=== PATIENT | male | born 1935 | race Caucasian/White ===

== ENCOUNTER 2017-04-24 11:15 | Emergency (ER) | payer MEDICARE ==
[~2017-04-24] VITALS: Ht 177.8 cm; Wt 84.4 kg
[~2017-04-24 11:15] MED LIST: ADVIL200 M1 PO; ARICEPT10 MG PO; CYMBALTA30 MG PO; LEVOTHYROXINE137 MCG PO; LEVOTHYROXINE150 MCG PO; LEVOTHYROXINE88 MCG PO; LOSARTAN-HCTZ1 EAC1 PO; PREDNISONE20 MG PO; PROAIR RESPICL90 MCG IH; SERTRALINE HCL50 MG PO; TOVIAZ8 MG PO; TRAZODONE HCL50 MG PO
[2017-04-24] MEDS ORDERED: GABAPENTIN800 MG PO (13:22)
[2017-04-24] MEDS ORDERED: FLOVENT HFA12 GM INH (13:22)
[2017-04-24] MEDS ORDERED: LEVOTHYROXINE175 MCG PO (13:23)
[2017-04-24] MEDS ORDERED: AMOX TR-K CLV1 EAC1 PO (13:23)
[2017-04-24] MEDS ORDERED: TAMSULOSIN HCL0.4 MG PO (13:23)
--- NOTE | 2017-04-25 11:56 | EKG ---
[facility] [address] [facility] [place] [address] Signed Normal sinus rhythm Right bundle branch block Abnormal ECG No previous ECGs available Confirmed by ELVIRA TUCKER MD ([id number]) on 04/25/2017 11:56:22 AM Electronically Signed By: ELVIRA TUCKER MD 04/25/17 1156 PATIENT NAME: JOSEPH CASTLE Electrocardiogram DATE OF : 31 PHYSICIAN: ELVIRA TUCKER MD REPORT #: [id number] REPORT IS CONFIDENTIAL AND NOT TO BE RELEASED WITHOUT AUTHORIZATION
== END 2017-04-24 14:53 | disposition home or self-care (01) ==
LOC: ED 11:15
DX: R20.2 Paresthesia of skin (principal); Z96.643 Presence of artificial hip joint, bilateral; Z96.652 Presence of left artificial knee joint; Z96.612 Presence of left artificial shoulder joint; Z96.611 Presence of right artificial shoulder joint; Z98.890 Other specified postprocedural states; Z88.5 Allergy status to narcotic agent; Z88.8 Allergy status to other drugs, medicaments and biological substances; Z79.899 Other long term (current) drug therapy
CPT/HCPCS: 70450; 80053; 84484; 85025; 93005; 93010; 99284

== ENCOUNTER → 2017-08-06 | Emergency (ER) | payer MEDICARE ==
[~2017-08-06] VITALS: Ht 177.8 cm; Wt 84.4 kg
[~2017-08-06] MED LIST changes: +ADULT ASPIRIN R81 MG PO; +AMOX TR-K CLV1 EAC1 PO; +COZAAR100 MG PO; +FLOVENT HFA12 GM INH; +GABAPENTIN800 MG PO; +KETOROLAC TROME10 MG PO; +LEVOTHYROXINE175 MCG PO; +TAMSULOSIN HCL0.4 MG PO; +TROSPIUM CHLORI60 MG PO
== END ==
LOC: ED 13:00
PROC: 0T9B70Z Drainage of Bladder with Drainage Device, Via Natural or Artificial Opening (ICD-10-PCS; principal; 2017-08-06)
DX: R10.32 Left lower quadrant pain (principal); Z88.8 Allergy status to other drugs, medicaments and biological substances; Z88.5 Allergy status to narcotic agent; Z79.899 Other long term (current) drug therapy; Z79.82 Long term (current) use of aspirin
CPT/HCPCS: 51701; 74176; 80053; 81001; 82150; 83690; 85025; 96374; 96376; 99283; J1885; J7030

== ENCOUNTER 2017-08-21 15:47 | Inpatient (IN) | payer MEDICARE ==
[~2017-08-21] VITALS: Ht 177.8 cm; Wt 78.8 kg
--- OUTSIDE RECORDS SUMMARY | ~2017-08-21 | XMS | Clinical Summary ---
Demographics + + + | Address | [address] | | | [place] [address] | + + + | Home Phone | | + + + | Preferred Language | Unknown | + + + | Marital Status | | + + + | Latter Day Affiliation | 1028 | + + + | Race | Unknown | + + + | Ethnic Group | Unknown | + + + Author + + + | Author | [facility] | + + + | Organization | [facility] | + + + | Address | Unknown | + + + | Phone | Unavailable | + + + Support + + + + + | Name | Relationship | Address | Phone | + + + + + | Joseph Castle | ECON | [address] | | | | | [place] | | | | | [phone] | | + + + + + Care Team Providers + +------+ + | Care Fast Food Worker Name | Role | Phone | + +------+ + | Josr Henriquez MD | PP | | + +------+ + Allergies + + + + + + | Active Allergy | Reactions | Severity | Noted | Comments | | | | | Date | | + + + + + + | Cyclobenzaprine | Hallucinations | Medium | 09/04/19 | | | | | | 12 | | + + + + + + | Morphine | Hallucinations | Medium | 09/04/19 | | | | | | 12 | | + + + + + + | Oxycodone-Acetaminop | Nausea and Vomiting | Low | 09/04/19 | | | hen | | | 12 | | + + + + + + Current Medications + + +-------+---------+------+------+-------+ | Prescription | Sig. | Disp. | Refills | Star | End | Statu | | | | | | t | Date | s | | | | | | Date | | | + + +-------+---------+------+------+-------+ | aspirin 81 MG | Take 81 mg by mouth | | | | | Activ | | tablet | daily. | | | | | e | + + +-------+---------+------+------+-------+ | omeprazole | Take 80 mg by mouth | | | | | Activ | | (PRILOSEC) 40 MG | 2 (two) times daily. | | | | | e | | capsule | | | | | | | + + +-------+---------+------+------+-------+ | | Take 1 tablet by | | | | | Activ | | UN-Grkbevvjzg-Pdched | mouth daily. | | | | | e | | obalamin (FOLBIC) | | | | | | | | 2.5-25-2 MG TABS | | | | | | | + + +-------+---------+------+------+-------+ | citalopram | Take 40 mg by mouth | | | | | Activ | | (CELEXA) 40 MG | daily. | | | | | e | | tablet | | | | | | | + + +-------+---------+------+------+-------+ | levothyroxine | Take 137 mcg by | | | | | Activ | | (SYNTHROID, | mouth daily. | | | | | e | | LEVOTHROID) 137 MCG | | | | | | | | tablet | | | | | | | + + +-------+---------+------+------+-------+ | | Take 1-2 tablets by | | | | | Activ | | hydrocodone-acetamin | mouth every 6 (six) | | | | | e | | ophen (NORCO) 10-325 | hours as needed. | | | | | | | MG per tablet | | | | | | | + + +-------+---------+------+------+-------+ | | Take 0.5 tablets by | | | | | Activ | | losartan-hydrochloro | mouth daily. | | | | | e | | thiazide (HYZAAR) | | | | | | | | 100-25 MG per tablet | | | | | | | + + +-------+---------+------+------+-------+ | cabergoline | Take 0.25 mg by | | | | | Activ | | (DOSTINEX) 0.5 MG | mouth twice a week. | | | | | e | | tablet | | | | | | | + + +-------+---------+------+------+-------+ | testosterone | Inject 200 mg into | | | | | Activ | | cypionate | the muscle every 14 | | | | | e | | (DEPO-TESTOSTERONE) | (fourteen) days. | | | | | | | 200 MG/ML injection | | | | | | | + + +-------+---------+------+------+-------+ | fish oil-omega-3 | Take 2 g by mouth | | | | | Activ | | fatty acids 1000 MG | daily. | | | | | e | | capsule | | | | | | | + + +-------+---------+------+------+-------+ Active Problems + + + | Problem | Noted Date | + + + | Anemia iron def | 09/06/2011 | + + + | Rhabdomyolysis | 09/04/2011 | + + + | ARF (acute renal failure) | 09/04/2011 | + + + | Male hypogonadism | 09/04/2011 | + + + | Unspecified hypothyroidism | 09/04/2011 | + + + | Adrenal adenoma | 09/04/2011 | + + + | HTN (hypertension) | 09/04/2011 | + + + | Orthostatic hypotension | 09/04/2011 | + + + | GERD (gastroesophageal reflux disease) | 09/04/2011 | + + + Resolved Problems + + + + | Problem | Noted | Resolved | | | Date | Date | + + + + | Syncope and collapse | 09/04/19 | | | | 12 | 2 | + + + + Social History + +-------+ +--------+------+ | Tobacco Use | Types | Packs/Day | Years | Date | | | | | Used | | + +-------+ +--------+------+ | Never Smoker | | | | | + +-------+ +--------+------+ + + +---------+ + | Alcohol Use | Drinks/We | oz/Week | Comments | | | ek | | | + + +---------+ + | No | | | rarely | + + +---------+ + + + + | Sex Assigned at | Date Recorded | | | | + + + | Not on file | | + + + Last Filed Vital Signs + + + + | Vital Sign | Reading | Time Taken | + + + + | Blood Pressure | 108/59 | 09/06/2011 7:38 AM PDT | + + + + | Pulse | 75 | 09/06/2011 7:38 AM PDT | + + + + | Temperature | 36.4 C (97.5 F) | 09/06/2011 7:38 AM PDT | + + + + | Respiratory Rate | 18 | 09/06/2011 7:38 AM PDT | + + + + | Oxygen Saturation | 94% | 09/06/2011 7:38 AM PDT | + + + + | Inhaled Oxygen | - | - | | Concentration | | | + + + + | Weight | 79.6 kg (175 lb 7.8 | 09/06/2011 4:13 AM PDT | | | oz) | | + + + + | Height | 180.3 cm (") | 09/05/2011 12:28 AM PDT | + + + + | Body Mass Index | 24.48 | 09/06/2011 4:13 AM PDT | + + + + Plan of Treatment Not on file Results Not on filefrom Last 3 Months Insurance + +--------+ +------+-------+ + | Payer | Benefi | Subscriber | Type | Phone | Address | | | t Plan | ID | | | | | | / | | | | | | | Group | | | | | + +--------+ +------+-------+ + | MEDICARE | MEDICA | xxxxxxxxxx | | | [address] | | | RE | | | | [place] [phone] | | | IP-OP | | | | | + +--------+ +------+-------+ + | [facility] | UNITED | xxxxxxxxx | | | | | | | | | | | | | HEALTH | | | | | | | CARE - | | | | | | | AARP | | | | | + +--------+ +------+-------+ + + +--------+ +--------+ + + | Guarantor Name | Accoun | Relation to | Date | Phone | Billing Address | | | t Type | Patient | of | | | | | | | | | | + +--------+ +--------+ + + | JOSEPH CASTLE | Person | Self [birth year] | Home: | [address] | | | al/Fam | | 1935 | [phone] | [place] | | | connie | | | [phone] | [phone] | + +--------+ +--------+ + +
--- OUTSIDE RECORDS SUMMARY | ~2017-08-21 | XMS | Clinical Summary ---
Demographics + + + | Address | [address] | | | [place] [address] | + + + | Home Phone | | + + + | Preferred Language | Unknown | + + + | Marital Status | | + + + | Quaker Affiliation | 1028 | + + + | Race | Unknown | + + + | Ethnic Group | Unknown | + + + Author + + + | Author | [facility] | + + + | Organization | [facility] | + + + | Address | Unknown | + + + | Phone | Unavailable | + + + Support + + + + + | Name | Relationship | Address | Phone | + + + + + | Joseph Castle | ECON | [address] | | | | | [place] | | | | | [phone] | | + + + + + Care Team Providers + +------+ + | Care Kindergarten Tutor Name | Role | Phone | + [...] | | | | Activ | | PU-Skmyyzlcjf-Mtewqd | mouth daily. | | | | [...] | xxxxxxxxxx | | | [address] | | | RE | | | | [place] [address] | | | IP-OP | | | | | + +--------+ +------+-------+ + | [facility] | UNITED | xxxxxxxxx | | | [...] Self | [birth year] | Home: | [address] | | | al/Fam | | 1935 | [phone] | [place] | | | connie | | | [phone] | [phone] | + +--------+ +--------+ + +
--- OUTSIDE RECORDS SUMMARY | ~2017-08-21 | XMS | Clinical Summary ---
Demographics + + + | Address | [address] | | | [place] [address] | + + + | Home Phone | | + + + | Preferred Language | Unknown | + + + | Marital Status | | + + + | Samaritan Affiliation | 1028 | + + + | Race | Unknown | + + + | Ethnic Group | Unknown | + + + Author + + + | Author | [facility] | + + + | Organization | [facility] | + + + | Address | Unknown | + + + | Phone | Unavailable | + + + Support + + + + + | Name | Relationship | Address | Phone | + + + + + | Joseph Castle | ECON | [address] | | | | | [place] | | | | | [phone] | | + + + + + Care Team Providers + +------+ + | Care Road Service Locksmith Name | Role | Phone | + [...] | | | | Activ | | QW-Spcrwmovvk-Opabet | mouth daily. | | | | [...] | xxxxxxxxxx | | | [address] | | | RE | | | | [place] [address] | | | IP-OP | | | | | + +--------+ +------+-------+ + | [facility] | [place] | xxxxxxxxx | | [...] Self | [birth year] | Home: | [address] | | | al/Fam | | 1935 | [phone] | [place] | | | connie | | | [phone] | [phone] | + +--------+ +--------+ + +
--- OUTSIDE RECORDS SUMMARY | ~2017-08-21 | XMS | Clinical Summary ---
Demographics + + + | Address | [address] | | | [place] [address] | + + + | Home Phone | | + + + | Preferred Language | Unknown | + + + | Marital Status | | + + + | Orthodoxy Affiliation | Unknown | + + + | Race | Unknown | + + + | Ethnic Group | Unknown | + + + Author + + + | Author | [facility] | | | and Marcelana | + + + | Organization | [facility] | | | and [place] | + + + | Address | Unknown | + + + | Phone | Unavailable | + + + Support + + + + + | Name | Relationship | Address | Phone | + + + + + | Brie Castle | ECON | [address] | | | | | [place] | | | | | [address] | | + + + + + | Chloe Malik | ECON | [place] | | | | | [address] | | + + + + + | Ivett Ingram | ARIEL | Unknown | | + + + + + | Mj Castle | ARIEL | Unknown | | + + + + + Care Team Providers + +------+ + | Care Aviation Consultant Name | Role | Phone | + [...] + + | Fluoxetine | | | 07/27/20 | | | | | | 15 [...] | + + +-------+---------+------+------+-------+ | | Take 100-25 mg by | | | 01/09 | | Activ | | losartan-hydrochloro | mouth Daily. | | | 07/28 | | e | | thiazide (HYZAAR) | | | | 12 | | | | 100-25 MG per tablet | | | | | | | + + +-------+---------+------+------+-------+ | aspirin (ASPIRIN | Take 81 mg by mouth | | | 01/09 | | Activ | | LOW DOSE) 81 MG EC | Daily. | | | 07/28 | | e | | tablet | | | | 12 | | | + + +-------+---------+------+------+-------+ | levothyroxine | Take 137 mcg by | | | 01/09 | | Activ | | (LEVOTHROID) 137 MCG | mouth Daily. | | | 07/28 | | e | | tablet | | | | 12 | | | + + +-------+---------+------+------+-------+ | cabergoline | | | | 03/0 | | Activ | | (DOSTINEX) 0.5 mg | | | | 05/30 | | e | | tablet | | | | 12 | | | + + +-------+---------+------+------+-------+ | testosterone | 200mg IM every 2 | | | 03/0 | | Activ | | cypionate | weeks | | | 05/30 | | e | | (DEPO-TESTOSTERONE) | | | | 12 | | | | 200 mg/mL injection | | | | | | | + + +-------+---------+------+------+-------+ | fesoterodine | Take 8 mg by mouth | | | | | Activ | | fumarate (TOVIAZ) 8 | Daily. | | | | | e | | MG TB24 ER tablet | | | | | | | + + +-------+---------+------+------+-------+ | donepezil | Take 5 mg by mouth | | | | | Activ | | (ARICEPT) 5 mg | nightly. | | | | | e | | tablet | | | | | | | + + +-------+---------+------+------+-------+ | Naproxen Sodium | Take 220 mg by mouth | | | | | Activ | | (ALEVE) 220 MG CAPS | 2 times daily. | | | | | e | + + +-------+---------+------+------+-------+ | traZODone | Take 50 mg by mouth | | | | | Activ | | (DESYREL) 50 mg | nightly. | | | | | e | | tablet | | | | | | | + + +-------+---------+------+------+-------+ | Multiple | Take by mouth. | | | | | Activ | | Vitamins-Minerals | | | | | | e | | (OCUVITE ADULT 50+ | | | | | | | | PO) | | | | | | | + + +-------+---------+------+------+-------+ | Multiple | Take by mouth. | | | | | Activ | | Vitamins-Minerals | | | | | | e | | ([facility] | | | | | | | | PO) | | | | | | | + + +-------+---------+------+------+-------+ | Multiple | Take by mouth. | | | | | Activ | | Vitamins-Minerals | | | | | | e | | (CENTRUM SILVER | | | | | | | | ADULT 50+ PO) | | | | | | | + + +-------+---------+------+------+-------+ | Multiple | Take by mouth. | | | | | Activ | | Vitamins-Minerals | | | | | | e | | (CENTRAL-SHAUN PO) | | | | | | | + + +-------+---------+------+------+-------+ Active Problems + + + | Problem | Noted Date | + + + | Bilateral sacroiliitis (HCC) | 09/18/2014 | + + + | [...] | SLEEP APNEA | | + +---+ Family History + + +------+ + | [...] + + + | Blood Pressure | 207/118 | 03/13/2015 1419 PST | + + + + | Pulse | 82 | 03/13/20159 PST | + + + + | Temperature | - | - | + + + + | Respiratory Rate | - | - | + + + + | Oxygen Saturation | - | - | + + + + | Inhaled Oxygen | - | - | | Concentration | | | + + + + | Weight | 81.6 kg (180 lb) | 02/28/2015 1201 PDT | + + + + | Height | 177.8 cm (5' 10") | 02/28/20151200 PDT | + + + + | Body Mass Index | 25.83 | 02/28/20151200 PDT | + + + + Plan of Treatment + + + + + | Health Maintenance | Due Date | Last Done | Comments | + + + + + | Vaccine: | | | | | Dtap/Tdap/Td (1 - | 2 | | | | Tdap) | | | | + + + + + | Vaccine: Zoster (#1) | | | | | | 3 | | | + + + + + | Vaccine: | | | | | Pneumococcal 65+ | 8 | | | | Low/Medium Risk (1 | | | | | of 2 - PCV13) | | | | + + + + + | Vaccine: Influenza | | | | | (Season Ended) | 8 | | | + + + + + Results Not on filefrom Last 3 Months Insurance + +--------+ +--------+ +---------+ | Payer | Benefi | Subscriber | Type | Phone | Address | | | t Plan | ID | | | | | | / | | | | | | | Group | | | | | + +--------+ +--------+ +---------+ | MEDICARE | MEDICA | xxxxxxxxxx | Medica | [phone] | | | RE | | re | [phone] | | | | PART A | | | | | | | AND B | | | | | + +--------+ +--------+ +---------+ | AARP | AARP | xxxxxxxxxxx | Indemn | [phone] | | | MDCR | | [phone] | [phone] | | | | SUPPL | | | | | + +--------+ +--------+ +---------+ + +--------+ +--------+ + + | Guarantor Name | Accoun | Relation to | Date | Phone | Billing Address | | | t Type | Patient | of | | | | | | | | | | + +--------+ +--------+ + + | JOSEPH CASTLE | Person | Self | [birth year] | Home: | [address] | | | al/Fam | | 1935 | [phone] | [place] [address] | | | connie | | | [phone] | | + +--------+ +--------+ + +
--- OUTSIDE RECORDS SUMMARY | ~2017-08-21 | XMS | Clinical Summary ---
Demographics + + + | Address | [address] | | | [place] [address] | + + + | Home Phone | | + + + | Preferred Language | Unknown | + + + | Marital Status | | + + + | Sikhism Affiliation | Unknown | + + + | Race | Unknown | + + + | Ethnic Group | Unknown | + + + Author + + + | Author | [facility] | | | and Marcelana | + + + | Organization | [facility] | | | and Marcelana [...] [place] | | | | | [address] | | + + + + + | Chloe Malik | ECON | [place] | | | | | [address] | | + + + + + | Ivett Ingram | ARIEL | Unknown | | + + + + + | Mj Castle | ARIEL | Unknown | | + + + + + Care Team Providers + +------+ + | Care Activities Attendant Name | Role | Phone | + [...] | | | | e | | ([facility] | | | | [...] | 1935 | [phone] | [place] [address] | | | connie | | | [phone] | | + +--------+ +--------+ + +
--- OUTSIDE RECORDS SUMMARY | ~2017-08-21 | XMS | Clinical Summary ---
Demographics + + + | Address | [address] | | | [place] [address] | + + + | Home Phone | | + + + | Preferred Language | Unknown | + + + | Marital Status | | + + + | Sabianist Affiliation | Unknown | + + + | Race | Unknown | + + + | Ethnic Group | Unknown | + + + Author + + + | Author | [facility] | | | and Marcelana | + + + | Organization | [facility] | | | and [...] [place] | | | | | [address] | | + + + + + | Chloe Malik | ECON | [place] | | | | | [address] | | + + + + + | Ivett Ingram | ARIEL | Unknown | | + + + + + | Mj Castle | ARIEL | Unknown | | + + + + + Care Team Providers + +------+ + | Care Upholstery Covers Inspector Name | Role | Phone | + [...] | | | | e | | ([facility] | | | | | | [...] | 1935 | [phone] | [place] [address] | | | connie | | | [phone] | | + +--------+ +--------+ + +
--- OUTSIDE RECORDS SUMMARY | ~2017-08-21 | XMS | Clinical Summary ---
Demographics + + + | Address | [address] | | | [place] [address] | + + + | Home Phone | | + + + | Preferred Language | Unknown | + + + | Marital Status | | + + + | Pentecostalism Affiliation | Unknown | + + + | Race | Unknown | + + + | Ethnic Group | Unknown | + + + Author + + + | Author | [facility] | | | and Marcelana | + + + | Organization | [facility] | | | and Marcelana [...] [place] | | | | | [address] | | + + + + + | Chloe Malik | ECON | [place] | | | | | [address] | | + + + + + | Ivett Ingram | ARIEL | Unknown | | + + + + + | Mj Castle | ARIEL | Unknown | | + + + + + Care Team Providers + +------+ + | Care Citrix Architect Name | Role | Phone | [...] | | | | e | | ([facility] | | | | | | [...] | 1935 | [phone] | [place] [address] | | | connie | | | [phone] | | + +--------+ +--------+ + +
--- OUTSIDE RECORDS SUMMARY | ~2017-08-21 | XMS | Clinical Summary ---
Demographics + + + | Address | [address] | | | [place] [address] | + + + | Home Phone | | + + + | Preferred Language | Unknown | + + + | Marital Status | | + + + | Anabaptist Affiliation | 1028 | + + + | Race | Unknown | + + + | Ethnic Group | Unknown | + + + Author + + + | Author | [facility] | + + + | Organization | [facility] | + + + | Address | Unknown | + + + | Phone | Unavailable | + + + Support + + + + + | Name | Relationship | Address | Phone | + + + + + | Joseph Castle | ECON | [address] | | | | | [place] | | | | | [phone] | | + + + + + Care Team Providers + +------+ + | Care Oracle Fusion Developer Name | Role | Phone | + [...] | | | | Activ | | MV-Aggermmyyt-Exqifu | mouth daily. | | | | [...] | xxxxxxxxxx | | | [address] | | | RE | | | | [place] [address] | | | IP-OP | | | | | + +--------+ +------+-------+ + | [facility] | UNITED | xxxxxxxxx | | [...] Self | [birth year] | Home: | [address] | | | al/Fam | | 1935 | [phone] | [place] | | | [place]nie | | | [phone] | [phone] | + +--------+ +--------+ + +
--- NOTE | 2017-08-21 20:21 | NUR ---
PATIENT ARRIVED TO THE FLOOR VIA STRETCHER. PATIENT TRANSFFERED FROM STRETCHER TO THE HOSPITAL BED VIA STAFF. PATIENT TOLERATED ACTIVITY WELL. PATIENT IS DISORINETED TO ALL. PATIENTS INTAKE COMPLETED. PATIENTS FAMILY HAS LEFT FOR THE EVENING. PATIENT DENIES ANY NEEDS AT THIS TIME. PATIENT DENIES ANY PAIN. ASSESMENT COMPLETED AND RECORDED. PATIENTS BED ALARM IS ON FOR SAFETY. PATIENT EDUCATED ON THE USE OF THE CALL LIGHT. PATIENT DOES NOT UNDERSTAND DIRECTIONS AT THIS TIME. PATIENT CLOSE TO THE NURSES STATION FOR OBSERVATION.
--- NOTE | 2017-08-21 21:08 | NUR ---
PATIENT WAS OUT OF BED WITHOUT THE ALARM ALERTING STAFF. BED ALRM ON THE BED STATES THAT IT IS ON. PATIENT NOW HAS A NEW BED AND THE BED ALARM IS OPERABLE. PATIENT WAS ABLE TO VOID A SMALL AMOUNT. PATIENT IS NOT STEADY ON HIS FEET AND DOES NOT FOLLOW DIRECTIONS. PATIENT IS NOW BACK IN BED. CALL LIGHT IN REACH. AND BED ALARM ON. NO NEEDS NOTED.
--- NOTE | 2017-08-21 22:08 | NUR ---
bed alarm on, trying to get out of bed, stood at edge of bed with 2 person assist, voided, clear yellow urine in urineal. Required several cues tog et back onto bed, unsteady gait. back to bed. sob with exertion noted.
--- NOTE | 2017-08-21 22:32 | NUR ---
PATIENT IS RESTING IN BED WITH EYES CLOSED. BREATHING IS EVEN AND UNLABORED, RR 16. SE LLIGHT IN REACH. AND BED ALARM IS ACTIVE.
--- NOTE | 2017-08-21 22:50 | EKG ---
[facility] [address] [place] [address] Signed Normal sinus rhythm Right bundle branch block Possible Inferior infarct , age undetermined Abnormal ECG When compared with ECG of 24-APR-2017 12:30, No significant change was found Confirmed by ELVIRA TUCKER MD ([id number]) on 08/21/2017 10:50:45 PM Electronically Signed By: ELVIRA TUCKER MD 08/21/17 2250 PATIENT NAME: CORRINEJOSEPH EMELY Electrocardiogram DATE OF : 31 PHYSICIAN: ELVIRA TUCKER MD REPORT #: [id number] REPORT IS CONFIDENTIAL AND NOT TO BE RELEASED WITHOUT AUTHORIZATION
--- NOTE | 2017-08-21 23:33 | NUR ---
PATIENT IS RESTING IN BED ON HIS LEFT SIDE. RR 17. CALL LIGHT IN REACH. BED ALARM ON FOR SAFETY.
--- NOTE | 2017-08-21 23:39 | NUR ---
PATIENT CLIMBING OUT OF BED. STAFF ENTERED ROOM. PATIENT ASSISTED TO STAND AT THE BEDISDE. PATIENT WAS ABLE TO VOID. PATIENT IS BACK IN BED RESTING. CALL LIGHT IN REACH. BED ALARM ON FOR SAFETY AND IV INFUSING.
--- NOTE | 2017-08-22 00:22 | NUR ---
PATIENTS BED ALARM ALERTED STAFF THAT HE WAS GETTING OUTOF BED. PATIENT ASSISTED TO STAND AT THE BEDSIDE. PATIENT WAS ABLE TO VOID. PATIENT ALSO HAD A SMALL AMOUNT OF INCONTINENCE. PATIENT IS NOW BACK IN BED RESTING. PATIENTS CALL LIGHT IN REACH. AND BED ALARM ON FOR SAFETY. NO FURTHER NEEDS NOTED. PATIENT REMAINS DISORIENTED TO ALL.
--- NOTE | 2017-08-22 01:21 | NUR ---
PATIENT OBSERVED TRYING TO GET OUT OF BED. PATIENT ASSISTED TO STAND AT THE BEDISDE TO USE URINAL. PATIENT WAS ABLE TO VOID. PATIENT IS NOW BACK IN BED RESTING. BED ALARM ON FOR SAFETY. VITALS TAKEN AND RECORDED. INTAKE AND OUTPUT RECORDED. PATIENT OFFERED A DRINK AND HAD NO ISSUES SWALLOWING. PATIENT EDUCATED ON USE OF CALL LIGHT, PATIENT SMILED. PATIENT REMAINS DISORIENTED. PATIENT AT TIMES STRUGGLES TO FIND HIS WORDS. PATIENTS CALL LIGHT IN REACH.
--- NOTE | 2017-08-22 01:59 | NUR ---
PATIENT WAS ROLLING AROUND IN BED. WHEN THE ROOM WAS ENTERED PATIENT ASKED TO USE THE RESTROOM. PATIENT STOOD AT THE BEDSIDE AND USED URINAL. PATIENT WAS ABLE TO VOID. PATIENT IS BACK IN BED RESTING. PATIENTS BED ALARM ON. CALL LIGHT IN REACH. NO NEEDS NOTED.
--- NOTE | 2017-08-22 02:48 | NUR ---
PATIENT BEGAN TO MOVE AROUND IN BED. WHEN ASKED IF HE WAS OKAY. PATIENT STATED "I HAVE TO PEE". PATIENT ASSISTED TO STAND AT THE BEDSIDE A 2PA. PATIENT IS NOW BACK IN BED RESTING. PATIENT REMAINS CONFUSED. ATTEMPTED TO REORIENT PATIENT, PATIENT JUST SMILES. PATIENT CONTINUES TO BE UNABLE TO FIND CORRECT WORDS, AND JUST SAYS "OH SHOOT" WHEN HE CANT FIND THE WORD. REEDUCATED INSPECTOR MACHINE CUT GLASS LIGHT. BED ALARM ON FOR SAFETY.
--- NOTE | 2017-08-22 05:19 | NUR ---
PATIENT UP TO THE RESTROOM AFTER IT WAS NOTICED PATIENT WAS TRYING TO CLIMB OUT OF BED. PATIENT ASSITED A 2PA TO STAND AT THE BEDISDE TO USE THE URINAL PATIENT ABLE TO VOID A SMALL AMOUNT. PATIENT ASSISTED BACK INTO BED. PATIENT TRYING TO GET OUT OF BED AGAIN BEFORE STAFF LEFT THE ROOM. PATIENT ASSISTED AGAIN TO STAND AT THE BED SIDE. PATIENT ABLE TO VOID. PATIENT IS BACK IN BED RESTING. PATIENTS ATTEND CHANGED AND ORLIN CARE COMPLETED. PATIENTS BED ALARM IS ON FOR SAFETY. PATIENTS VITALS TAKEN AND BP WAS HIGHER. WAITED 15 MINUTES AND RETOOK BP AND RECORDED. BP WNL. PATIENT REMAINS CONFUSED. REORIENTED PATIENT. PATIENT EDUCATED ON THE USE OF THE CALL LIGHT. NO FURTHER NEEDS NOTED.
--- NOTE | 2017-08-22 05:22 | NUR ---
PATIENT RESTED ON AND OFF DURING THE NIGHT. PATIENT IS ON A CRADIAC DIET. PAITNET IS A 2PA. PATIENT IS CONFUSED AND FORGETFUL. PATIENT DISORIENTED TO SURROUNDINGS, EVENT, TIME, AND DATE. PATIENT IS UNABLE TO FOLLOW DIRECTIONS. PATIENT AT TIMES IS UNABLE TO FIND HIS WORDS. PATIENT STANDS AT THE BEDISDE AND USES URINAL. PATIENT IS UNSTEADY ON HIS FEET. BED ALARM ON FOR SAFETY. PATIENT DOES NOT USE CALL LIGHT.
--- NOTE | 2017-08-22 06:35 | NUR ---
PATIENT WAS OBSERVED CLIMBING OUT OF BED. PATIENTASSISTED A 2PA TO STAND AT THE BEDSIDE TO USE URINAL. PATIENT WAS ABLE TO VOID. PATIENT IS NOW BACK IN BED RESTING. PATIENTS BED ALARM IS ON FOR SAFETY. PATIENT REMAINS DISORIENTED. PATIENT REORINETED. PATIENTS CALL LIGHT IN REACH
--- NOTE | 2017-08-22 07:45 | NUR ---
REPORT RECIEVED FROM JENNIFER TROTTER. PT AWAKE AND DISORIENTED. PLEASANT BUT DID NOT KNOW YEAR OR LOCATION.
--- NOTE | 2017-08-22 07:50 | NUR ---
ADMINISTERED THYROID MEDICATION. PT DOES NOT REMEMBER BIRTHDAY. ORDERED BREAKFAST.
--- NOTE | 2017-08-22 08:35 | NUR ---
2 PERSON ASSIST WITH KEITH SIMPSON TO TOILET. DAUGHTER IN ROOM AND ASSISTED WELL. PATIENT A LITTLE DIFFICULT TO DIRECT. PATIENT IN CHAIR, BREAKFAST IN FRONT AND CHAIR ALARN ON.
--- NOTE | 2017-08-22 08:54 | NUR ---
TALKED TO DAUGHTER ELISEO FROM OCCUPATIONAL THERAPY. SHE CALLED THE REP AND HE INSTRUCTED HER TO SCAN HIS TENS UNIT WITH A SPECIAL WAND THE DEVICE TOLD HER NO TO AN MRI. VERIFIED WITH UNIT REP AND HIS DEVICE IS NOT COMPATIBLE WITH AN MRI.
--- NOTE | 2017-08-22 08:55 | NUR ---
PATIENT IS UP IN HIS CHAIR EATING HIS BREAKFAST CHAIR ALARM ON. DAUGHTER IN ROOM. OTHER EXTENSION SERVICE ADVISOR AND I ALSO DAUGHTER HELPED HIM INTO THE BATHROOM I STAYED IN THE BATHROOM WHILE OTHER EXTENSION SERVICE ADVISOR MADE HIS BED.
--- NOTE | 2017-08-22 11:26 | NUR ---
TOOK PATIENTS VITALS PER JENNIFER WILD. TORRI, , DAUGHTER, JENNIFER THOMAS, PT, AND DR TUCKER IN ROOM. DR TUCKER DOING ASSESMENT AND CHECKING REFLEXES.
--- NOTE | 2017-08-22 11:43 | NUR ---
PT RESTLESS. TRIED TO STAND PT TO WALK IN TO RESTROOM BEFORE. PT COULD NOT FOLLOW DIRECTIONS OR CLOSE HAND. WAS NOTED TO BE DROOLING. AND DAUGHTER IN ROOM. DR TUCKER IN TO ASSESS PT. VS ASSESSED. BP HIGH AT 181\95. STARTED NEW IV IN LEFT ARM AND SENT LABS. PT APPEAR TO CLEAR ENOUGH TO STAND SOME TIME LATER AND ASSISTED INTO BEDSIDE CHAIR. CHAIR ALARM IN PLACE AND IN ROOM. CURTAIN OPEN.
--- NOTE | 2017-08-22 12:09 | NUR ---
PT CONTINUES TO BE RESTLESS IN CHAIR. CONCERNED. ASSISTED BACK TO BED. BED ALARM ON. STATES HE TAKES A "LEG CRAMP" PILL AND TONIC WATER FOR HIS LEG CRAMPS HE HAS HAD TWO IN THE LAST 1\\2 [address] TUCKER AND HE AUTHORIZED IF SHE BRINGS THE TONIC WATER FROM HOME. TOLD HER NOT TO GIVE HIM THE PILLS BUT WE WOULD LOOK AT THEM. DAUGHTER IN ROOM.
--- NOTE | 2017-08-22 13:20 | NUR ---
2 person assist with sharon Mccartney- patient needed to use urinal. Was unable to go. in room. Fresh ice and tonic water given, patient became visably upset and cursed at when she tried to get him to take a drink bed alarm is on
--- NOTE | 2017-08-22 13:47 | NUR ---
THIS RN RECEIVED HAND OFF REPORT FROM JENNIFER WILD. ASSESSEMENT DONE. PT TALKING AND USING PROFANITY. PT APPEARS RESTLESS, ANXIOUS AND AGGITATED. PT USING WORDS (PRIMARILY PROFANITY). PT FOLLOWING DIRECTIONS WITH SOME DIFFICULTY. LEFT SIDED WEAKNESS NOTED. PT ASSESTED UP TO RESTROOM, 2 PERSON STANDY BY, FWW ASSIST. PT UNSTEADY ON FEET. AT BEDSIDE. BED RAILS UP. CALL LIGHT WITHIN REACH. BED ALARM ON.
--- NOTE | 2017-08-22 15:19 | NUR ---
PT CONTINUES TO BE RESTLESS. PTS DAUGHTER WOULD LIKE TO WHEEL PT AROUND UNIT TO ORIENT HIM TO SURROUNDINGS AND HELP WITH RESTLESS BEHAVIOR. PT TRANSFERED TO WHEEL CHAIR WITH 2 PERSON STAND BY ASSIST. PT NOTED TO BE SMILING WHILE RINDING AROUND UNIT.
--- NOTE | 2017-08-22 16:36 | NUR ---
2 PERSON ASSIST PATIENT TO BR, WITH DAUGHTER AND WIFES HELP. PATIENT SAT ON TOILET. ATTENDS AND GOWN WERE CHANGED THEY BECAME WET WITH URINE. BACK TO BED, BED ALARM ON.
--- NOTE | 2017-08-22 16:52 | NUR ---
PTS FAMILY TO NURSES STATION STATING THEY ARE LEAVING FOR DINNER AND A BREAK. PT IS RESTING WITH EYES CLOSED, RR = 20. IV FLUIDS ARE NOT CONNECTED TO PT. PIV ASSESSED, WNL. RECONNECTED AT THIS TIME BY THIS RN. BED ALARM ON. CALL LIGHT PINKYIN ANA.
--- NOTE | 2017-08-22 17:57 | NUR ---
PATIENT IS LAYING IN BED TRYING TO GO TO SLEEP.
--- NOTE | 2017-08-22 18:18 | NUR ---
PT HAD NEW STROKE THIS AM AROUND 1030. CT PERFOMRED. PT NOW APHASIC WITH LEFT SIDED WEAKNESS. TELE #2. URINARY FREQUENCY. BED/CHAIR ALARM. PT NOT USING CALL LIGHT. STAND BY ASSIST WITH AMBULATION AND ALL TOILETING/ADLS. PIV X2 (LFA, RAC), LR AT 125. PT ABLE TO VERBLIZE NAME BUT OTHERWISE DISORINTED SINCE STROKE THIS AM.
--- NOTE | 2017-08-22 19:05 | NUR ---
RECEIVED REPORT FROM RN. PATIENT RESTING IN BED, BREATHING IS EVEN AND UNLABORED, APPEARS TO BE ASLEEP. FLACC SCORE OF 0. AT BEDSIDE, DENIES NEEDS AT THIS TIME. CALL LIGHT WITHIN REACH, BED ALARM ON.
--- NOTE | 2017-08-22 20:11 | NUR ---
ROUNDED CHARGE. PATIENT IS RESTING IN BED SLEEPING RR 17. PATIENTS IS IN THE RECLINER AT THE BEDSIDE. CALL LIGHT IN REACH. BED ALARM IS ON. NO NEEDS NOTED
--- NOTE | 2017-08-22 21:38 | NUR ---
SEEN PATIENT TRYING TO GET UP OUT FROM BED. CALLED TARIQ MARTÍNEZ RN TO HELP ME REPOSITION THE PATIENT. BED ALARM ON.
--- NOTE | 2017-08-22 22:03 | NUR ---
JENNIFER POTTER AND I HELPED PATIENT USE THE URINAL, UN ABLE TO USE IT BUT VOIDED EVERYWHERE.BED AND PULL UPS ARE SOAKED. BED LINEN AND GOWN CHANGED. PATIENT IS BACK IN BED. BED ALARM ON.
--- NOTE | 2017-08-22 23:40 | NUR ---
PATIENT RESTING COMFORTABLY IN BED, BREATHING IS EVEN AND UNLABORED. FLACC SCORE OF 0. CALL LIGHT WITHIN REACH.
--- NOTE | 2017-08-23 00:30 | NUR ---
ASSISTED PATIENT TO BATHROOM WITH 2PA. GAIT IS UNSTEADY, PATIENT DOES NOT FOLLOW COMMANDS. NOW RESTING COMFORTABLY IN BED, BREATHING IS EVEN AND UNLABORED. BED ALARM ON, CALL LIGHT WITHIN REACH.
--- NOTE | 2017-08-23 02:28 | NUR ---
PATIENT ASSISTED TO STAND AT THE BEDSIDE. PATIENT WAS ABLE TO USE URINAL. PATIENT WAS ALSO INCONTINENT. PATIENT IS BACK IN BED RESTING. NEURO CHECK ATTEMPTED. PATIENT UNABLE TO FOLLOW COMMANDS. PATIENTS BED ALARM IS ON FOR SAFETY.
--- NOTE | 2017-08-23 04:16 | NUR ---
PATIENT OBSERVED TRYING TO GET OUT OF BED. PATIENT ASSISTED TO STAND AT THE BEDSIDE. PATIENT WAS ABLE TO VOID. PATIENT CONTINUES TO STRUGGLE TO FOLLOW DIRECTIONS. PATIENT IS NOW BACK IN BED RESTING. PATIENTS BED ALARM IS ON FOR SAFETY.
--- NOTE | 2017-08-23 05:08 | NUR ---
PATIENT ASSISTED TO BEDSIDE TO USE URINAL. NOW RESTING IN BED, BREATHING IS EVEN AND UNLABORED. PATIENT DENIES NEEDS, UNABLE TO ASSESS AT THIS TIME DUE TO PATIENT NOT FOLLOWING COMMANDS. CALL LIGHT WITHIN REACH, BED ALARM ON.
--- NOTE | 2017-08-23 05:35 | NUR ---
PATIENT'S NIGHT WAS UNEVENTFUL. HE HAS BEEN RESTING THROUGHOUT SHIFT. VSS, URINE OUTPUT QS, NO COMPLAINTS OR SIGNS OF PAIN. DUE TO PATIENT'S COGNITIVE STATUS, ASSESSMENTS ARE DIFFICULT; PATIENT DOES NOT FOLLOW COMMANDS, DOES NOT ANSWER QUESTIONS. DIFFICULT TO ASSESS MOTOR STRENGTH DUE TO PATIENT'S COGNITIVE STATUS, AGAIN DOES NOT FOLLOW COMMANDS, CONTINUES TO FIDGET WHILE ASSESSING. REQUIERES BED ALARM DUE TO IMPULSIVITY. REMAINS ON TELE, UNREMARKABLE WITH NORMAL SINUS THROUGHOUT SHIFT. INCONTINENT OF URINE, REQUIRES FREQUENT ATTENDS CHANGES. AMBULATES TO BATHROOM, GAIT IS UNSTEADY, REQUIRES 2PA. IV FLUIDS INFUSING. NO ACUTE CHANGES FROM BEGINNING OF SHIFT.
--- NOTE | 2017-08-23 08:40 | NUR ---
DAUGHTER HELPED ME GET HIM INTO THE SHOWER. WHILE GIVING HIM A SHOWER DAUGHTER MADE HIS BED FOR ME. SHAMPOODED HIS HAIR. NOW HE IS SITTING UP IN HIS CHAIR EATING HIS BREAKFAST.
--- NOTE | 2017-08-23 08:50 | NUR ---
PT SITTING UP IN CHAIR, EATING BREAKFAST WITH 'S ASSISTANCE. PT ABLE TO FOLLOW SIMPLE COMMANDS THIS AM. COMPRESS ENGINEER EVEN AND STRONG, NO UNILATERAL WEAKNESS NOTED AT THIS TIME. PT SPEECH IS CLEAR, CAN MAKE NEEDS KNOWN. ANSWERS "I DON'T KNOW" OR "I CAN'T REMEMBER" TO ALL ORIENTATION QUESTIONS. CHAIR ALARM IN PLACE. PT DENIES PAIN OR NAUSEA. IV IN LEFT AC INFUSING WNL, DRESSING CDI. AND DAUGHTER AT BEDSIDE.
--- NOTE | 2017-08-23 10:42 | NUR ---
PT WORKING WITH PEric, ANA WELL. AMB WITH SBA. FOLLOWING COMMANDS WELL. BACK TO ROOM AT THIS TIME, SITTING UP IN RECLINER, CHAIR ALARM ON.
--- NOTE | 2017-08-23 11:09 | NUR ---
I HELPED PHYSICAL THERAPIST WALK PATIENT BACK TO HIS ROOM AFTER PHYSICAL THERAPY.
--- NOTE | 2017-08-23 11:52 | NUR ---
PT ONE PERSON ASSIST TO BED FOR CAROTID ULTRASOUND. BED ALARM ON. AT BEDSIDE.
--- NOTE | 2017-08-23 13:00 | NUR ---
PT ATE APPROX 30% OF LUNCH, HAD WHOLE ENSURE. PT DENIES PAIN OR NAUSEA. STATES HE IS COLD AND TIRED. 1PA TO BED AND GIVEN WARM BLANKET. BED ALARM ON. CALL LIGHT WITHIN REACH. AT BEDSIDE. PT SL PER DR. TUCKER'S ORDER.
--- NOTE | 2017-08-23 14:10 | NUR ---
PT SBA TO RESTROOM TO VOID, AMB BACK TO BED. BED ALARM ON. AT BEDSIDE.
--- NOTE | 2017-08-23 15:16 | NUR ---
PT RESTING IN BED, EYES CLOSED, RESP EVEN AND UNLABORED. BED ALARM ON, AT BEDSIDE.
--- NOTE | 2017-08-23 16:12 | NUR ---
THIS RN AND CALVIN PARKER ASSISTED PT FROM RESTROOM TO BED. NOTED THAT LEFT ARM WAS FLACCID. LEFT HAND TWISTHAND ABSENT, LEFT LEG WEAK BUT PT TO LIFT LEG, DRIFTS TO BED AFTER 3 SECS. LEFT EYE LID DROOPING SLIGHTLY. BP 158/94, HR 77, O2 93% ON RA, RR 18, TEMP 98. PT VERY SLOW TO RESPOND VERBALLY, ABLE TO ANSWER HIS NAME AND NOTHING ELSE. ONCE DONE WITH ASSESSMENT AND VITAL SIGNS LEFT SIDED STRENGTH AND ALTITUDE CHAMBER TECHNICIAN HAD IMPROVED TO SAME AM ASSESSMENT. PT BECOMING VERY AGITATED, RESTLESS IN BED, PICKING AT IV'S AND TRYING TO TAKE GOWN OFF. NOTIFIED DR. TUCKER, NO NEW ORDERS AT THIS TIME. WILL CONTINUE TO MONITOR.
--- NOTE | 2017-08-23 17:15 | NUR ---
CHARGE NURSE TORRI Morales ASSISTING PT TO EAT DINNER, PT SITTING AT EDGE OF BED. PT REMAINS AGITATED, PICKING AT BLANKETS AND CLOTHING. PT ASSISTED TO WHEELCHAIR AND TAKING LAPS IN HALLWAY WITH THIS RN AND CALVIN PARKER.
--- NOTE | 2017-08-23 18:00 | NUR ---
PT ASSISTED TO BED, WARM BLANKETS GIVEN. BED ALARM ON. DAUGHTER AT BEDSIDE.
--- NOTE | 2017-08-23 18:15 | NUR ---
PT TRYING TO CLIMB OUT OF BED. ASSISTED TO RESTROOM, HAD SOFT BM, VOIDED. 1PA BACK TO BED. BED ALARM ON.
--- NOTE | 2017-08-23 18:42 | NUR ---
BROUGHT PATIENT TWO WARM BLANKETS.
--- NOTE | 2017-08-23 18:47 | NUR ---
PATIENT IS SLEEPING.
--- NOTE | 2017-08-23 19:45 | NUR ---
BED LARM ON, PT TRYING TO GET OUT OF BED, INCONTINENT OF URINE, ATTENDS CHANGED, ORLIN CARE DONE. WHOLE BED LINEN AND GOWN CHANGED. BACK TO BED, SEMIRESISTIVE TO INSTRUCTIONS, NOT FOLLOWING CUES BUT PLEASANT. 2 PERSON ASSIST. BACK TO BED. TOLERAED WELL. BED ALARM BACK ON
--- NOTE | 2017-08-23 20:33 | NUR ---
JENNIFER WOODARD NOTIFIED RE VITAL SIGNS.
--- NOTE | 2017-08-23 23:51 | NUR ---
CURRENTLY RSTING, NO S/SX SOB OR REP DISTRESS OR CP. TELE#2 INPLACE, SR, BED ALARM INPLACE
--- NOTE | 2017-08-24 00:31 | NUR ---
PATIENT SEEN TRY TO GET UP FROM BED. RN MATTEO AND I HELPED PATIENT TO GO TO THE BATHROOM, VERY WOBBLY. PATIENT SEEMED MORE DISORIENTED, DIFFICULT TO DIRECT AND AGGITATED. CHANGED ATTENDS. PATIENT IS BACK IN BED. BED ALARM IS ON.
--- NOTE | 2017-08-24 01:38 | NUR ---
DR TUCKER NOTIFIED OF PTS INCREASED AGITATION AND PT TRYING TO REMOVE TELE. NEW ORDERS TO DC. TELE DC'D. NO NEW ORDERS AT THIS TIME. PT CALMER
--- NOTE | 2017-08-24 02:42 | NUR ---
Resting, eyes closed, bed alarm on. no resp distress, no s/sx pain or cp at this time. High fall precautions inplace
--- NOTE | 2017-08-24 04:17 | NUR ---
INNA IN BED, BED ALARM ON. CONTINUES TO BE UNABLE TO FOLLOW INSTRUCTIONS, UNSTEADY GAIT, INCONTINENT OF URINE, ATTENDS CHANGED SEVERAL TIMES THIS SHIFT. PLUS HE HAS VOIDED SMALL AMOUNTS YELLOW URINE IN URINAL. 2PA DUE TO IMPULSIVENESS, CONFUSION AND HIGH FALL RISK. TELE DC'D EARLIER PT WAS FIDGETTING WITH TELE LEADS AND WAS BECOMING INCREASINGLY RESTLESS AND AGITATED WHEN TELE LEADS WERE REPOSITIONED.
--- NOTE | 2017-08-24 06:12 | NUR ---
Bed alarm on. Pt trying to crawl out of bed, Not very easily redirectable at that time. Incontinent of urine, plus he voided 225cc clear yellow urine after standing at edge fo bed with 2 person assist. Back to bed, calmer. sob with exertion present at that time, pt on room air. Bed alarm back on
--- NOTE | 2017-08-24 06:14 | NUR ---
RN MATTEO AND I HELPED PATIENT USE THE URINAL. PATIENT LIKES TO STAND. CHANGED SOAKED ATTENDS. PATIENT IS BACK IN BED.BED ALARM ON.
--- NOTE | 2017-08-24 07:50 | NUR ---
PT IS AWAKE IN BED. SET PT UP FOR BRK
--- NOTE | 2017-08-24 08:05 | NUR ---
PT IN BED, SITTING UPRIGHT, EATING BREAKFAST. DENIES PAIN. PERSONAL SUPPLIES IN REACH. USED INSENTIVE SPIROMETER, X 10 BREATHS, GOT UP TO 1000 ONCE, AT AROUND 500 THE OTHER 9 TIMES. ENCROURAGED DEEP BREATH AND COUGH. PT ABLE TO FOLLOW VERBAL AND DEMONSTRATIVE CUES TO TAKE DEEP BREATHS, BUT DID NOT COUGH DESPITE SEVERAL VERBAL AND DEMONSTRATIVE CUES. PERSONAL SUPPLIES AND CALL BUTTON IN REACH. BED ALARM ON. PT DRINKING ENSURE.
--- NOTE | 2017-08-24 08:15 | NUR ---
NOW AT PT'S BEDSIDE. REINFORCED NEED TO USE CALL BUTTON WITH PT, PT VERBALIZED UNDERSTANDING.
--- NOTE | 2017-08-24 08:30 | NUR ---
PATIENT RESTING IN BED. PATIENT ABLE TO ANSWER A FEW QUESTIONS, LOOKS TO FOR HELP WITH WORDS AND LONGER EXPLANATIONS. AT BEDSIDE. PATIENT WAS COMPLETELY INDEPENDENT UNTIL THIS WEEK. PATIENT HAD NO ASSIST IN AMBULATION, DRIVES. INTENDS TO TAKE PATIENT HOME AT DISCHARGE. DISCUSSED THAT DR TUCKER WILL BE IN SOON.
--- NOTE | 2017-08-24 09:31 | NUR ---
PT AWAKE IN BED. PT STATED HE WANTED TO HAVE A SHAVE. I SHAVED HIM AND GAVE HIM A BED BATH.
--- NOTE | 2017-08-24 09:36 | NUR ---
PT IN BED, RESTING QUIETLY WITH EYES CLOSED. PT'S AT BEDSIDE. PERSONAL SUPPLIES AND CALL LIGHT IN REACH. NO S/S DISTRESS OR DISCOMFORT NOTED OR REPORTED.
--- NOTE | 2017-08-24 10:17 | NUR ---
PATIENT UP IN CHAIR WITH IN ROOM. CALL BUTTON IN REACH. WARM BLANKET GIVEN TO AND PATIENT. NO OTHER NEEDS AT THSI TIME.
--- NOTE | 2017-08-24 11:41 | NUR ---
DR. TUCKER IN TO SEE PT. PT'S IN ROOM AT SIDE. PT HAD DIFFICULTY NAMING MOST OBJECTS, WAS ABLE TO ACCURATELY NAME A FORK, AND WAS ABLE TO DEMONSTRATE WHAT CHAPSTICK WAS USED FOR, BUT WAS UNABLE TO NAME. PT ABLE TO FOLLOW SIMPLE ONE STEP COMMANDS. UNABLE TO FOLLOW MORE COMPLEX COMMANDS.
--- NOTE | 2017-08-24 11:46 | NUR ---
PT SITTING UP IN RECLINER, PROVIDED WITH WARM BLANKET. PERSONAL SUPPLIES AND CALL LIGHT IN REACH. PT DENIED PAIN.
--- NOTE | 2017-08-24 12:05 | NUR ---
PATIENT UP IN CHAIR FOR LUNCH. PATIENTS , TONYA STATES DR TUCKER WAS IN AND SHE HAD HER QUESTIONS ANSWERED REGARDING DIAGNOSIS. WE DISCUSSED DISCHARGE PLAN. SHE WOULD LIKE TO TAKE HIM HOME RATHER THAN A SNF. DISCUSSED POSSIBLE TRANSITIONAL CARE REHAB HERE. SHE IS IN AGREEMENT AND WOULD LIKE TO TRY THAT. PATIENT ALSO AGREED THAT HE WOULD LIKE TO STAY HERE FOR REHAB. WE DISCUSSED HE IS NOT QUITE READY FOR THAT, BUT PERHAPS TOMORROW. THEY UNDERSTAND THIS WILL DEPEND ON HOW HE DOES TODAY AND THROUGH THE NIGHT. NO FURTHER QUESTIONS AT THIS TIME.
--- NOTE | 2017-08-24 12:14 | NUR ---
PATIENT SITTING UP IN CHAIR WITH IN ROOM. PATIENT STATES THAT HE DOESN'T LIKE HIS FOOD AND DIDN'T KNOW WHAT HE WOULD LIKE TO EAT. THIS DESKTOP SPECIALIST ORDERED THE PATIENT AN ENSURE MILK SHAKE.
--- NOTE | 2017-08-24 13:41 | NUR ---
PT WORKED WITH DANIELLE, PHYSICAL THERAPY STAFF IN THERAPY ROOM, THEN AMBULATED WITH FWW BACK TO ROOM 121. PT TOLERATED VERY WELL. STILL SOMEWHAT IMPULSIVE IN GETTING UP, BUT AMBULATES AND TRANSFERS WITH 1 PERSON ASSIST. PT NOW SITTING UP IN RECLINER, LEGS ELEVATED, AT SIDE.
--- NOTE | 2017-08-24 14:05 | NUR ---
PATIENT DRANK FULL ENSURE FOR LUNCH.
--- NOTE | 2017-08-24 14:06 | NUR ---
PATIENT SITTING UP IN CHAIR. IN ROOM. FRESH ICE WATER GIVEN. NO CALL BUTTON IN REACH. NO OTHER NEEDS AT THIS TIME.
--- NOTE | 2017-08-24 14:07 | NUR ---
PT SITTING IN CHAIR, VISITING WITH HIS . BOTH PLEASANT-PT ABLE TO ANSWER CLEAR AND WELL THOUGHT OUT ANSWERS. MENTIONED THAT SHE WAS UNABLE TO ATTEND [facility] YESTERDAY, HERE ATTENDED TO PT. I OFFERED TO CONTACT THEIR BIG DATA HADOOP DEVELOPER-WHICH SHE SAID PLEASE. CALLED, LEFT MSG FOR BIG DATA HADOOP DEVELOPER. EXTENDED A BLESSING, WILL FOLLOW NEEDED
--- NOTE | 2017-08-24 15:55 | NUR ---
PT RESTING WITH EYES CLOSED, IN BED. AT BEDSIDE. PERSONAL SUPPLIES AND CALL LIGHT IN REACH.
--- NOTE | 2017-08-24 16:27 | NUR ---
PATIENT UP TO BATHROOM WITH ONE PERSON ASSIST WITH FWW. PATIENT DID WELL WITH WALKER TO BATHROOM. WHEN PATIENT WAS FINISHED. HE HAD A HARD TIME FOLLOWING DIRECTIONS AND USING WALKER. PATIENT BACK TO CHAIR WITH LEGS ELEVATED. CHAIR ALARM ON. IF ROOM SITTING NEXT TO PATIENT. CALL BUTTON IN REACH. NO OTHER NEEDS AT THIS TIME.
--- NOTE | 2017-08-24 16:29 | NUR ---
PT DOING "BETTER TODAY" PER PT'S . PT IMPULSIVE AT TIMES WITH MOVEMENTS, ESPECIALLY WHEN TRANSFERING OR AMBULATING. PT REQUIRES MULTIPLE CUES, BOTH VERBAL AND GESTURAL TO FOLLOW SIMPLE COMMANDS AT TIMES. CAN FOLLOW SIMPLE ONE STEP DIRECTIONS. CONTINUES TO HAVE DIFFICULTY WITH ORIENTATION, DISORIENTED TO PLACE, SURROUNDINGS, DATE, BUT RECOGNIZES . UNABLE TO NAME SOME COMMON ITEMS, SUCH MUG, BUT WAS ABLE TO NAME FORK, AND WAS ABLE TO DEMONSTRATE HOW CHAPSTICK IS USED DESPITE BEING UNABLE TO NAME CHAPSTICK. PT ENCOUARGED TO USE INSENTIVE SPIROMETER, AND DEEP BREATH AND COUGH. PT USED I.S., BUT ONLY TOOK DEEP BREATHS, DID NOT COUGH. UP WITH 1-2 PERSON ASSIST WITH FWW, IMPULSIVE. BED AND CHAIR ALARM USED THROUGH OUT SHIFT. SLIGHT LEFT DEFICIT NOTED, LEFT HAND SLIGHTLY WEAKER THAN RIGHT, SLIGHT LEFT FACIAL DROOP. PT SLOW TO RESPOND MUCH OF THE TIME.
--- NOTE | 2017-08-24 17:49 | NUR ---
PATIENT DRANK FULL ENSURE.
--- NOTE | 2017-08-24 17:49 | NUR ---
PATIENT SITTING UP IN CHAIR WATCHING TV. CALL BUTTON IN REACH. CHAIR ALARM ON. FRESH ICE WATER GIVEN. NO OTHER NEEDS AT THIS TIME.
--- NOTE | 2017-08-24 18:45 | NUR ---
PT IN RECLINER, CHAIR ALARM ON. PT STARTED TO STAND WITHOUT CALLING FOR ASSIST, CHAIR ALARM SOUNDED, NURSING STAFF TO PT'S ROOM. ATTEMPTED TO PROBLEM SOLVE WITH PT. PT RESPONDED "NO" WHEN OFFERED THE BATHROOM, OFFERED ASSISTANCE TO BED, OFFERED DRINK OR FOOD. PT THEN SAT BACK DOWN. PT AGAIN ATTEMPTED TO GET UP WITHOUT CALLING FOR ASSISTANCE AFTER APROXIMATELY 5 MINUTES. CHAIR ALARM SOUNDED. NURSING STAFF TO PT'S ROOM. OFFERED ABOVE NOTED AGAIN, AND PT INDICATED THAT HE WOULD LIKE TO GET INTO BED. ASSISTED PT INTO BED, BED ALARM ON. PT RESTED ON SIDE FOR APROXIMATELY 5 MINUTES IN BED, THEN ATTEMPTED TO GET UP OUT OF BED WITHOUT CALLING FOR ASSISTANCE. BED ALARM SOUNDED, NURSING STAFF RESPONDED. PT AGITATED, DID NOT RESPOND TO QUESTIONS, EXCEPT TO SAY "NO" WHEN ASKED IF HE NEEDED TO USE THE BATHROOM. PT THEN LAY BACK DOWN IN THE BED. NOTIFIED DR. TUCKER THAT PT HAS BEEN IMPULSIVE, AND ATTEMPTING TO GET UP WITHOUT CALLING FOR NURSING STAFF ASSISTANCE, AND THAT PT APPEARED AGITATED AND RESTLESS. ASKED DR. TUCKER IF HE HAD NOTED THAT PT HAD INCREASED AGITATION AND IMPULSIVENESS IN THE EVENING AND AT NIGHT. DR. TUCKER RESPONDED THAT HE HAD NOTED THIS. DR. TUCKER INDICATED THAT PT SHOULD HAVE ADEQUATE STAFF SUPERVISION TO KEEP HIM SAFE. THIS RN ASKED DR. TUCKER IF HE WANTED PT TO BE A ONE TO ONE, DR. TUCKER RESPONDED AFFIRMATIVELY. NOTIFIED CHARGE NURSE ORQUIDEA Martinez RN, WELL KAMARI Santos RN. KEITH BOWMAN IS ACTING ONE TO ONE STAFF FOR PT. PT IN BED, RESTING WITH EYES CLOSED.
--- NOTE | 2017-08-24 19:05 | NUR ---
IN ROOM FOR REPORT, PT GREATED THIS RN AND WENT BACK TO SLEEP. CALL LIGHT IS WITHIN REACH AND PT IS A 1-1 AT THIS TIME AFTER BEING IMPULSIVE DURING THE DAY.
--- NOTE | 2017-08-24 22:00 | NUR ---
IN ROOM TO ASSESS PT AND ADMINISTER MEDICATIONS. PT WAS EASILY AROUSABLE AND TRIED ANSWERING QUESTIONS WITH SOME GARBLED WORDS. HE IS ORIENTED TO SELF BUT COULD NOT STATE WHERE HE IS. HE DID NOT FOLLOW DIRECTIONS TO TAKE DEEP BREATHS IN AND OUT. WHEN ASKED TO SQUEEZE THIS RN'S FINGERS HE EITHER WAS NOT ABLE TO FOLLOW DIRECTIONS OR HAD POOR ORDER ENTRY STRENGTH BILAT. PT IS A 2PA WHILE UP AND IS MONITORED 1 ON 1 AT THIS TIME DUE TO IMPULSIVENESS EARLIER IN THE DAY.
--- NOTE | 2017-08-25 00:22 | NUR ---
PT IS RESTING WITH EYES CLOSED, RESPIRATIONS ARE EVEN AND NONLABORED, CALL LIGHT IS WITHIN REACH AND PT IS BEING MONITORED 1:1 FROM NURSES STATION.
--- NOTE | 2017-08-25 02:23 | NUR ---
PT IS RESTING WITH EYES CLOSED, RESPIRATIONS ARE EVEN AND NONLABORED, CALL LIGHT IS WITHIN REACH AND PT IS MONITORED FROM NURSES STATION.
--- NOTE | 2017-08-25 04:09 | NUR ---
PT IS RESTING WITH EYES CLOSED, RESPIRATIONS ARE EVEN AND NONLABORED. CALL LIGHT IS WITHIN REACH AND PT IS BEING MONITORED FROM NURSES STATION.
--- NOTE | 2017-08-25 05:19 | NUR ---
PT SLEPT WELL THROUGH THE NIGHT AND DID NOT HAVE ANY PROBLEMS. HE WAS MONITORED 1:1 ALL NIGHT AND ONCE HE STARTED MOVING ALOT IN BED WAS ASKED IF HE NEEDED TO USE THE RESTROOM. HE IS A 2PA TO THE BATHROOM AND IS VOIDING QS WITH SOME INCONTINENCE. PT CONTINUES TO HAVE APHASIA. LUNGS ARE DIMINISHED PT HAS DIFFICULTY FOLLOWING DIRECTIONS TO TAKE DEEP BREATHS IN AND OUT.
--- NOTE | 2017-08-25 06:50 | NUR ---
PT WOKE TO USE RESTROOM, GAVE HIS THYROID MEDICATION. HE DENIES NEEDS AT THIS TIME. CALL LIGHT IS WITHIN REACH AND BED ALARM IS ON.
--- NOTE | 2017-08-25 08:00 | NUR ---
BEDSIDE REPORT RECEIVED FROM WILLA RODRIGUEZ. WHITE BOARD UPDATED. PATIENT AWAKE ON AND OFF THROUGHOUT REPORT. PLAN FOR ECHOCARDIOGRAM TODAY. BED ALARM ON. PATIENT SLEEPING NOW. SALINE LOCKED. ATTENDS IN PLACE.
--- NOTE | 2017-08-25 08:30 | NUR ---
ULTRA SOUND TECH IN ROOM WITH PATIENT AT THIS TIME.
--- NOTE | 2017-08-25 09:00 | NUR ---
PATIENT SITTING UP IN BED WITH BY HIS SIDE. HANDS AND FACE WASHED. ORAL CARE DONE. NO OTHER NEEDS AT THIS TIME. CALL BUTTON IN REACH.
--- NOTE | 2017-08-25 09:35 | NUR ---
PT WORKING WITH PHYSICAL THERAPY. UP AMBULATING IN HALLS NOW. STANDING BY.
--- NOTE | 2017-08-25 09:47 | NUR ---
BED LINENS CHANGED BY THIS RN. BATH BLANKET AND PILLOW SET UP IN CHAIR FOR PATIENT WHEN HE RETURNS FROM PHYSICAL THERAPY. ROOM TIDIED AND ARRANGED FOR SAFETY.
--- NOTE | 2017-08-25 11:34 | NUR ---
PATIENT SITTING IN RECLINER. AT BEDSIDE. PATIENT TRYING TO READ WORDS FROM THE WEATHER CHANNEL ON TV. HE DID READ AND SAY "RAIN AND WIND" WHICH WAS ON THE SCREEN AT THAT TIME. ANSWERED ALL MY OTHER QUESTIONS. SHE SAID HE HAS BEEN EATING MOSTLY SOFT FOOD LIKE JELLO AND PUDDING. SHE WAS FEEDING HIM YESTERDAY BUT SOMEONE TOLD HER TO STOP SO THAT HE COULD WORK ON FEEDING HIMSELF. SHE STATES HE DOESN'T LIKE MAC & CHEESE AT ALL. HE LIKES [employer] SANDWICHES. HE MIGHT EAT 1/2 OF ANOTHER TYPE OF SANDWICH. HE LIKES ENSURE AND BANANAS. HE IS WORKING WITH SPEECH THERAPY FOR [place]IA. HIS DIET IS CARDIAC. WILL RELAY FOOD PREFERENCES TO KITCHEN. CONTINUE CARDIAC DIET. CAN INCORPORATE ENSURE AT MEALS IF DESIRED.
--- NOTE | 2017-08-25 12:05 | NUR ---
PATIENT UP TO SHOWER AND BACK TO CHAIR WITH OT ASSISTANCE. PATIENT UP IN CHAIR DRESSED IN HOME CLOTHES AND LUNCH SET UP FOR HIM TO EAT. CALL BUTTON IN REACH. NO OTHER NEEDS AT THIS TIME.
--- NOTE | 2017-08-25 13:30 | NUR ---
PATIENT SITTING UP IN CHAIR WITH VISITOR IN ROOM. CALL BUTTON IN REACH. NO OTHER NEEDS AT THIS TIME.
== END 2017-08-25 13:51 | disposition swing bed (61) | DRG 64 ==
LOC: ED 15:47 → MS 15:48 → ED 19:03 → MS 08-22 11:26
PROVIDERS: ADMIT Internal Medicine
DX: I63.9 Cerebral infarction, unspecified (principal); G93.41 Metabolic encephalopathy; R47.01 Aphasia; I12.9 Hypertensive chronic kidney disease with stage 1 through stage 4 chronic kidney disease, or unspecified chronic kidney disease; N18.3 Chronic kidney disease, stage 3 (moderate); N40.0 Benign prostatic hyperplasia without lower urinary tract symptoms; E03.9 Hypothyroidism, unspecified; G89.29 Other chronic pain; M54.5 Low back pain; E86.0 Dehydration; R40.2412 Glasgow coma scale score 13-15, at arrival to emergency department; Z79.82 Long term (current) use of aspirin; Z96.612 Presence of left artificial shoulder joint; Z96.611 Presence of right artificial shoulder joint; Z96.643 Presence of artificial hip joint, bilateral; Z96.652 Presence of left artificial knee joint
CPT/HCPCS: 70450; 71045; 80053; 80061; 81001; 83036; 84484; 85025; 85610; 85651; 85730; 92523; 93005; 93010; 93306; 93880; 96105; 97110; 97116; 97162; 97166; 97535; G0378; J1650; J7030; J7120

== ENCOUNTER 2017-08-25 13:56 | Inpatient (IN) | payer MEDICARE ==
[~2017-08-25] VITALS: Ht 177.8 cm; Wt 78.8 kg
--- OUTSIDE RECORDS SUMMARY | ~2017-08-25 | XMS | Clinical Summary ---
Demographics + + + | Address | [address] | | | [place] [address] | + + + | Home Phone | | + + + | Preferred Language | Unknown | + + + | Marital Status | | + + + | Druze Affiliation | 1028 | + + + | Race | Unknown | + + + | Ethnic Group | Unknown | + + + Author + + + | Author | [facility] | + + + | Organization | [facility] | + + + | Address | Unknown | + + + | Phone | Unavailable | + + + Support + + + + + | Name | Relationship | Address | Phone | + + + + + | Joseph Castle | ECON | [address] | | | | | [place] | | | | | [phone] | | + + + + + Care Team Providers + +------+ + | Care Brake Lining Finisher Name | Role | Phone | + [...] | | | | Activ | | IL-[id number]-Qvkhht | mouth daily. | | | | [...] | 2 | + + + + Encounters +--------+ + + + + | Date | Type | Specialty | Care Team | Description | +--------+ + + + + | 08/25/ | Ancillary | | Jak Parkinson MD | Cerebrovascular | | 2018 | Procedure | | | accident (CVA), | | | | | | unspecified | | | | | | mechanism (HCC) | +--------+ + + + + | 08/25/ | Ancillary | | Jak Parkinson MD | Cerebrovascular | | 2018 | Orders | | | accident (CVA), | | | | | | unspecified | | | | | | mechanism (HCC) | +--------+ + + + + from Last 3 Months Social History + +-------+ +--------+------+ | Tobacco [...] + + | Height | 180.3 cm (5' 11") | 09/05/2011 12:28 AM PDT | + [...] | MEDICA | xxxxxxxxxx | | | [address] | | | RE | | | | [place] [phone] | | | IP-OP | | | | | + +--------+ +------+-------+ + | [employer] | UNITED | xxxxxxxxx | | | [...] Self | [birth year] | Home: | [address] | | | al/Fam | | [phone] | [phone] | [place] | | | connie | | [phone] | [phone] | + +--------+ +--------+ + +
--- OUTSIDE RECORDS SUMMARY | ~2017-08-25 | XMS | Encounter Summary ---
Demographics + + + | Address | [address] | | | [place] [address] | + + + | Home Phone | | + + + | Preferred Language | Unknown | + + + | Marital Status | | + + + | Jainism Affiliation | 1028 | + + + | Race | Unknown | + + + | Ethnic Group | Unknown | + + + Author + + + | Author | [facility] | + + + | Organization | [facility] | + + + | Address | Unknown | + + + | Phone | Unavailable | + + + Support + + + + + | Name | Relationship | Address | Phone | + + + + + | Dennis Cabrera | ECON | [address] | | | | | [place] | | | | | [phone] | | + + + + + Care Team Providers + +------+ + | Care Counter Supervisor Name | Role | Phone | + +------+ + | Josr Henriquez MD | PCP | | + +------+ + Encounter Details +--------+ + + + + | Date | Type | Department | Care Team | Description | +--------+ + + + + | 08/25/ | Ancillary | [facility] | Jak Parkinson MD | Cerebrovascular | | 2018 | Orders | ECHO | [address] | accident (CVA), | | | | | [place], [place] | unspecified | | | | | [id number] | mechanism (HCC) | | | | | | | [...] on file | | + + + as of this encounter Plan of Treatment + +--------+ + + | Name | Priori | Associated Diagnoses | Date/Time | | | ty | | | + +--------+ + + | ECHO outside interpretation | Routin | Cerebrovascular | 08/25/2017 12:19 PM | | standard | e | accident (CVA), | PDT | | | | unspecified | | | | | mechanism (HCC) | | + +--------+ + + + +--------+ + + | Name | Priori | Associated Diagnoses | Order Schedule | | | ty | | | + +--------+ + + | ECHO outside interpretation | Routin | Cerebrovascular | 1 Occurrences | | standard | e | Accident (Cva), | starting 08/25/2017 | | | | Unspecified | until 08/25/2018 | | | | Mechanism (Hcc) | | + +--------+ + + as of this encounter Visit Diagnoses + + | Diagnosis | + + | Cerebrovascular accident (CVA), unspecified mechanism (HCC) | + +"
--- OUTSIDE RECORDS SUMMARY | ~2017-08-25 | XMS | Clinical Summary ---
Demographics + + + | Address | [email or web address] | | | [place] [address] | + + + | Home Phone | | + + + | Preferred Language | Unknown | + + + | Marital Status | | + + + | Rastafarian Affiliation | Unknown | + + + | Race | Unknown | + + + | Ethnic Group | Unknown | + + + Author + + + | Author | [facility] | | | and [place] | + + + | Organization | [facility] | | | and [place] | [...] [place] | | | | | [phone] | | + + + + + | Chloe Malik | ECON | [place] | | | | | [phone] | | + + + + + | Ivett Ingram | ARIEL | Unknown | | + + + + + | Mj Castle | ARIEL | Unknown | | + + + + + Care Team Providers + +------+ + | Care Still Pump Operator Name | Role | Phone | [...] | | e | | ([facility] [...] | MEDICA | xxxxxxxxxx | Medica | [phone] | | | | RE | | re | [phone] | | | | PART A | | | | | | | AND B | | | | | + +--------+ +--------+ +---------+ | AARP | AARP | xxxxxxxxxxx | Indemn | [phone] | | | | MDCR | | [...] Self | [birth year] | Home: | [address] | | | al/Fam | | [phone] | [phone] | [place] [address] | | | connie | | | [phone] | | + +--------+ +--------+ + +
--- OUTSIDE RECORDS SUMMARY | ~2017-08-25 | XMS | Encounter Summary ---
Demographics + + + | Address | [address] | | | [place] [address] | + + + | Home Phone | | + + + | Preferred Language | Unknown | + + + | Marital Status | | + + + | Evangelical Affiliation | 1028 | + + + | Race | Unknown | + + + | Ethnic Group | Unknown | + + + Author + + + | Author | [facility] | + + + | Organization | [facility] | + + + | Address | Unknown | + + + | Phone | Unavailable | + + + Support + + + + + | Name | Relationship | Address | Phone | + + + + + | Dennis Cabrera | ECON | [address] | | | | | [place] | | | | | [phone] | | + + + + + Care Team Providers + +------+ + | Care Aircraft Ordnance Systems Mechanic Name | Role | Phone | + [...] Cerebrovascular | | 2018 | Procedure | ECHO | [address] | accident (CVA), | | | | | [place], [place] | unspecified | | | | | [id number] | mechanism (HCC) | | | | [...] (HCC) | | + +--------+ + + as of this encounter Visit Diagnoses + + | Diagnosis | + + | Cerebrovascular accident (CVA), unspecified mechanism (HCC) | + +"
--- NOTE | 2017-08-25 14:20 | NUR ---
PT SITTING IN CHAIR, VISITING WITH HIS CAREER SERVICES REPRESENTATIVE. HE SEEMED VERY PLEASED HE CAME BY. WILL FOLLOW NEEDED.
--- NOTE | 2017-08-25 16:42 | NUR ---
PATIENT SITTING UP IN BEDSIDE RECLINER, RESTING WITH EYES CLOSED. PATIENTS IN ROOM. CALL LIGHT IN REACH. NO OTHER NEEDS AT THIS TIME.
--- NOTE | 2017-08-25 17:14 | NUR ---
PATIENT SET CHAIR ALARM OFF. PATIENT WANTING TO SHAVE. PT BECOMING AGITATED/UNCOOPERATIVE WITH CARES. WHEN HANDED LIPITOR IN MEDICINE CUP, PATIENT THREW CUP INTO THE BATHROOM SINK. BAKERY ASSOCIATE ASSISTED PATIENT WITH TAKING PILL BY PLACING PILL ON TONGUE WITH THIS RN PRESENT. PATIENT BRUSHING TEETH NOW. OFFERING PATIENT TO GO ON A WALK TO DISTRACT PATIENT.
--- NOTE | 2017-08-25 17:26 | NUR ---
PATIENT MORE ORIENTED TODAY, BUT DISORIENTED TO SURROUNDINGS AND DATE. BECOMES MORE AGITATED/IRRITABLE IN AFTERNOON/EVENING. 1PA WITH GAIT BELT. UNSTEADY AT TIMES. BED/CHAIR ALARM. CHANGED TO SWING BED TODAY. PHYSICAL THERAPY THROUGH THURSDAY. BMs TODAY. LFA S/L. CARDIAC DIET. DAUGHTER REPORTS WALKING/RIDING PATIENT IN WHEELCHAIR AROUND HALLS MAY CALM HIM.
--- NOTE | 2017-08-25 17:42 | NUR ---
PATIENT STOOD UP OUT OF CHAIR WITH OUT ASSIST. THIS RADIO MECHANIC APPRENTICE RAN TO ROOM PATIENT WALKED TO SINK WITH ONE PERSON ASSIST. PATIENT REFUSED ANY HELP AND TO ANY SUGGESTIONS. PATIENT SEEMS ANXIOUS. PATIENT WASHED HANDS AND FACE WITH WATER. GATE BELT ATTACHED TO THE PATIENT BY RN AND THIS RADIO MECHANIC APPRENTICE. PATIENT PACED BACK AND FORTH ROOM THEN TO THE BATHROOM TO SIT ONTO THE TOILET. PATIENT SEEMED TO BE UNCOMFORTABLE DUE TO ROCKING A LITTLE AND BREATHING LOUDER. THIS RADIO MECHANIC APPRENTICE ASKED THE PATIENT IF HE WAS IN PAIN OR HAD STOMACH PAIN. PATIENT SHOOK HIS HEAD NO. PATIENT PASSED GAS IN TOILET NO BM JUST SMEAR. PATIENT VOIDED 50ML OF URINE. PATIENT THEN WALKED BACK OUT TO THE NURSES STATION ASKING TO CALL HIS . THIS RADIO MECHANIC APPRENTICE WALKED WITH THE PATIENT BACK TO HIS CHAIR AND ASSISTED CALLING HIS . CHAIR ALARM ON. WARM BLANKET ON. CALL BUTTON IN REACH. PATIENT SEEMS TO BE RELAXED AT THIS TIME.
--- NOTE | 2017-08-25 19:05 | NUR ---
PT IS AWAKE IN THE CHAIR WITH 2 ALARMS ON AND IS AT HIS SIDE. IS GETTING READY TO GO HOME 1:1 FLOAT HIRED HAND WILL TAKE OVER.
--- NOTE | 2017-08-25 20:13 | NUR ---
IN ROOM TO ASSESS PT AND GIVE LOVENOX INJECTION. PT IS BACK ALSEEP AT THIS TIME AND 1:1 MONITORED D/T AGGITATION DURING THE DAY SHIFT. BED ALARM IS ON.
--- NOTE | 2017-08-25 21:30 | NUR ---
PT IS RESTING WITH EYES CLOSED, RESPIRATIONS ARE EVEN AND NONLABORED. BED ALARM IS ON AND PT IS MONITORED FROM NURSES STATION.
--- NOTE | 2017-08-26 00:04 | NUR ---
PT IS RESTING WITH EYES CLOSED, RESPIRATIONS ARE EVEN AND NONLABORED. CALL LIGHT IS WITHIN REACH, BED ALARM IS ON AND PT IS MONITORED FROM NURSES STATION.
--- NOTE | 2017-08-26 06:50 | NUR ---
HELPED PT TO RESTROOM. HE IS BACK IN BED AT THIS TIME WITH BEDALARM ON.
--- NOTE | 2017-08-26 07:25 | NUR ---
BEDSIDE REPORT RECEIVED FROM WILLA RODRIGUEZ. WHITE BOARD UPDATED. PATIENT SLEEPING IN BED. AWAKENS TO VOICE. BED ALARM ON. SALINE LOCKED LFA.
--- NOTE | 2017-08-26 07:30 | NUR ---
PATIENT RESTING IN BED WITH EYES CLOSED. CALL BUTTON IN REACH.
--- NOTE | 2017-08-26 09:25 | NUR ---
PATIENT SITTING UP IN BED WITH OT WORKING WITH PATIENT. IN ROOM. NO NEEDS AT THIS TIME.
--- NOTE | 2017-08-26 10:00 | NUR ---
PT HELPED UP FROM BED, ASSISTED WITH GETTING DRESSED INTO CLOTHES HIS BROUGHT FROM HOME, AND 1PA INTO BATHROOM. PATIENT A LITTLE UNSTEADY. ATTENDS IN PLACE. PATIENT VOIDED 200ML. PATIENT BACK IN BED NOW. PATIENT ABLE TO PERFORM ADLs WITH SIMPLE, FREQUENT CUES.
--- NOTE | 2017-08-26 10:04 | NUR ---
PATIENT RESTING IN BED WITH IN ROOM. PATIENT WASHED HANDS AND FACE. PATIENT REFUSED ORAL CARE AT THIS TIME. EYE GLASSED WASHED. WILL TRY AGAIN LATER. BED ALARM ON. NO OTHER NEEDS AT THIS TIME.
--- NOTE | 2017-08-26 11:58 | NUR ---
PT SITTING IN RECLINER WITH CHAIR ALARM IN PLACE. RESTING WITH EYES CLOSED. LEFT TO GET LUNCH AND REST FOR AWHILE.
--- NOTE | 2017-08-26 13:25 | NUR ---
PT APPEARS TO BE SLEEPING, HIS SITTING IN CHAIR. SHE WAVED ME IN, HAD PLEASANT VISIT. PT OPENED HIS EYES AND REACHED OUT HIS HAND TO ME. SMILED AND I TOLD HIM I WOULD CHECK BACK AND LET HIM REST. HE SHOOK HIS HEAD IN AGREEMENT I WILL FOLLOW NEEDED
--- NOTE | 2017-08-26 13:46 | NUR ---
PATIENT WORKING WITH PHYSICAL THERAPY AT THIS TIME. AMBULATING HALLS.
--- NOTE | 2017-08-26 14:18 | NUR ---
PATIENT UP FROM CHAIR TO BATHROOM WITH ONE PERSON ASSIST WITH GAIT BELT AND FWW. PATIENT BACK TO BED PEREQUEST. BED ALARM ON. CALL BUTTON IN REACH. NO OTHER NEEDS AT THIS TIME.
--- NOTE | 2017-08-26 14:45 | NUR ---
TALKED WITH PT DAUGHTER ELISEO AFTER OBTAINING PERMISSION FROM THE PT TOO TALK TO HER. ELISEO STATES CONCERN ABOUT HER FATHER BEING SO EXTRA TIRED IN THE AFTERNOONS, STATES HE DOESN'T EVEN ACT LIKE HIMSELF BECAUSE HE IS SO TIRED AT THAT TIME OF THE DAY. WE TALKED ABOUT THE FACT THAT THIS COULD BE RELATED TO WHAT IS GOING ON WITH HIM FAR A STROKE IS CONCERNED. TOLD HER I WOULD BE SURE AND DISCUSS WITH DR TUCKER HER CONCERNS.
--- NOTE | 2017-08-26 16:59 | NUR ---
patients behaviors have been pleasant today. slept/rested most of day. 1PA with gait belt to ambulate. IV removed. appetite moderate today. physical therapy, speech therapy, and occupational therapy worked with patient today.
--- NOTE | 2017-08-26 17:37 | NUR ---
PATIENT RESTING IN BED. BED ALARM ON. FRESH ICE WATER AT BEDSIDE TABLE. PATIENT APPEARS TO BE AGGRAVATED WHEN OFFERED ASSISTANCE. PATIENT MAKING LOW GURGLING NOISES, STUDENT NURSE ASSESSING PATIENT. RN NOTIFIED. CALL LIGHT IN REACH. NO OTHER NEEDS AT THIS TIME.
--- NOTE | 2017-08-26 18:01 | NUR ---
PT IN BED, APPEARS TO BE RESTING WITH EYES CLOSED.
--- NOTE | 2017-08-26 19:58 | NUR ---
REPORT RECIEVED FROM THE DAY SHIFT RN. PATIENT APPEARS RESTING IN BED. CALL LIGHT WITHIN REACH. RESPIRATORY RATE 16.
--- NOTE | 2017-08-26 21:11 | NUR ---
UP TO BERP, USING 2 PERSON ASSIST, GAIT BELT, VOIDED, BACK TO BED, TOLERATED WFAIR, HAD ONE BOUT OF ANGER TOWARDS STAFF, EASILY REDIRECTED. BACK IN BED. BED ALARM ON
--- NOTE | 2017-08-26 21:40 | NUR ---
PATIENT AMBULATED SBA WITH FWW TO RESTROOM. PATIENT RETURNED BACK TO BED. PATIENT APPEARS RESTING WITH TV ON. PATIENT DENIES ANY OTHER NEEDS AT THIS TIME. BED ALARM IS ON. CALL LIGHT WITHIN REACH. 2100 MEDICATIONS GIVEN PER ORDER.
--- NOTE | 2017-08-26 23:47 | NUR ---
PATIENT APPEARS RESTING WITH EYES CLOSED AND TV ON IN ROOM. RR OF 16. PATIENTS BED ALARM IS ON. CALL LIGHT WITHING REACH.
--- NOTE | 2017-08-27 02:05 | NUR ---
BED ALARM ALERTED STAFF THAT PATIENT WAS TRYING TO GET OUT OF BED. PATIENT ASSISTED TO THE RESTROOM WITH 1PA WITH FWW. PATIENT VOIDED. PATIENT RETURNED TO BED. BED ALARM ON. PATIENT DENIES ANY NEEDS. CALL LIGHT WITHIN REACH.
--- NOTE | 2017-08-27 03:46 | NUR ---
PATIENT APPEARS RESTING IN BED WITH EYES CLOSED. RR 18. PATIENTS BED ALARM ON. CALL LIGHT WITHIN REACH.
--- NOTE | 2017-08-27 05:13 | NUR ---
PATIENT 1PA WITH FWW TO RESTROOM. PATIENT ON CARDIAC DIET. PATIENT RECIEVING PT/OT/ST. PATIENT ON RA. PATIENT CONFUSED AT TIMES. PATIENT RESPONDS TO ONE STEP COMMANDS. PATIENT RESTED WELL THROUGHOUT THE NIGHT. BED ALARM ON. PATIENT ON SWING BED. PATIENT HAS NO IV PER ORDER.
--- NOTE | 2017-08-27 06:38 | NUR ---
PATIENT APPEARS RESTING WITH EYES CLOSED. RR 16. PATIENT BED ALARM ON. CALL LIGHT WITHIN REACH.
--- NOTE | 2017-08-27 07:05 | NUR ---
PATIENTS BED ALARM ALERTED STAFF THAT HE WAS OUT OF BED. PATIENT ASSISTED TO THE RESTROOM A SBA. PATIENT WAS BALE TO VOID. PATIENT IS BACK IN BED RESTING. BED ALARM ON FOR SAFETY. CALL TOM VERDIN.
--- NOTE | 2017-08-27 08:11 | NUR ---
BED ALARMING. AMBULATED TO BATHROOM. BM AND VOIDED 100ML URINE. SAT IN CHAIR TO FINISH BREAKFAST. CHAIR ALARM SET, CALL LIGHT ON LAP, BREAKFAST WITHIN REACH. PT VOICES NO CONCERNS AT THIS TIME.
--- NOTE | 2017-08-27 08:42 | NUR ---
MORNING ASSESSMENT DUE. PT UP TO CHAIR AND DRESSED IN HOME CLOTHS. PT RESPONDING TO COMMANDS. PT DENIES PAIN. ASSESSMENT DONE. MEDICATIONS TO BE GIVEN BY STUDENT RN WITH HER INSTRUCTOR. PT WATCHIGN TV. CALL LIGHT WITHIN REACH.
--- NOTE | 2017-08-27 09:18 | NUR ---
PATIENT BED CHANGED WHILE PATIENT WAS SHOWERING. VISITING. AUDITORY ASSESSMENT WHILE PT WAS SHOWERING SHOWED THAT PT WAS SLOW TO RESPOND, NEEDED REPEAT QUEING AND STEP BY STEP INSTRUCTIONS FOR WHAT COMES NEXT IN THE SHOWER. WAITING TO GIVE MEDS/H TO T UNTIL AFTER SHOWER.
--- NOTE | 2017-08-27 10:31 | NUR ---
THIS RN TO CHECK ON PT. PT UP TO CHAIR AND VISITING WITH . PT STATES HE HAS NO REQUESTS OR COMPLAINTS AT THIS TIME. CALL LIG WITHIN REACH.
--- NOTE | 2017-08-27 10:50 | NUR ---
MEDICATION AND ASSESSMENT DONE LATE. SHOWER AND OCCUPATIONAL THERAPY VISITING DURING MED/H TO T TIMES. VISITING. PT REPORTS NO COMPLAINTS AT THIS TIME. SITTING IN CHAIR READING THE NEWSPAPER. HESITANT TO INTERRUPTIONS.
--- NOTE | 2017-08-27 11:00 | NUR ---
ATTEMPTED TO CALL [facility] IN REHAB FACILITY, MESSAGE LEFT FOR LEONELA TO CALL.
--- NOTE | 2017-08-27 11:35 | NUR ---
LEONELA CALLED BACK STATED SHE IS IN A MEETING AND SHE WILL CALL ME ALEXIS IN LIKE 5 MINUTES.
--- NOTE | 2017-08-27 11:53 | NUR ---
PT CHAIR ALARM SOUNDING. PT GETTING SELF UP TO RESTROOM. THIS RN AND ETCHER ENAMELING TO BEDSIDE. PT ASSESSTED TO RESTROOM AND BACK TO CHAIR. PT STATES HE IS DONE WITH LUNCH. TRAY REMOVED. PT WANTS "TO BE LEFT ALONE." EXPRESSES FRUSTRATION BECAUSE PT WON'T CALL NURSES AND IS TELLING HER "I DON'T HAVE TO LISTEN TO YOU." ADVISED TO TAKE A BREAK AND GET HERSELF SOME LUNCH, AGREES AND LEAVES UNIT FOR LUNCH. CHAIR ALARM ON FOR PT. PT READING NEWS PAPER. NO REQUESTS OR COMLAINTS AT THIS TIME. CALL LIGHT WITHIN REACH.
--- NOTE | 2017-08-27 12:05 | NUR ---
PT HAS HAD SEVERAL SESSIONS WITH Milla TODAY. VISITED WITH PT HE WAS WALKING HEADED TO Alphonse. RM. VISITED WITH BOTH PT AND HIS . PT WAS STARTING TO EAT LUNCH, HIS SAID SHE WAS GOING HOME TO GRAB A BIT AND REST SOME. PT HAS MOMENTS WHEN HE SEEMS CROSS WITH STAFF AND SPOUSE, NOT TO ME THOUGH. WILL CON- TINUE TO FOLLOW NEEDED
--- NOTE | 2017-08-27 12:24 | NUR ---
PT LEFT AFTER PT. PT LAYING IN BED RESTING AND WATCHING TV. SEEMS DROWSY. WOULD LIKE TO WALK AROUND IN HIS WHEEL-CHAIR AFTER LUNCH. PT HAS NO COMPLAINTS AT THIS TIME.
--- NOTE | 2017-08-27 14:45 | NUR ---
FINALLY GOT A HOLD OF WILLA AT [facility] INPT REH[facility]. SHE SAID TO FAXE THE CHART NOTES TO HER. INCLUDED FACESHEET, H AND P, PT, OT, AND ST NOTES FROM SWING CHART AND THEN H AND P, DC SUMMARY AND PT, OT, AND ST EVALS AND NOTES FROM INPT CHART. THESE WERE FAXED TO [phone]. HER PHONE # [phone]. RECIEVED FAX CONFIRMATION. WILLA STATED SHE WOULD CALL ME BACK EITHER THIS AFTERNOON OR IN AM.
--- NOTE | 2017-08-27 15:05 | NUR ---
THIS RN TO ROOM TO CHECK ON PT. PT VISITING WITH FAMILY. NO REQUESTS OR COMPLAINTS.
--- NOTE | 2017-08-27 17:44 | NUR ---
MEDICATION DUE. THIS RN TO ROOM. PT UP TO CHAIR VISITING WITH FAMILY. MEDICATION GIVEN ORDERED (SEE MAR). PT UP TO RESTROOM AND BACK TO BED. PT DISORIENTED WHEN FAMILY LEAVES. PT WANTS TO LEAVE WITH FAMILY. PT REORIENTED, FAMILY HELPS TO REASSURE PT THAT THAT THEY WILL BE BACK TOMORROW AND WILL BE COMING TO VISIT. PT AGREES TO GET BACK INTO BED. PT SITUATES SELF IN BED. BED RAILS UP X3, BED ALARM ON. CALL LIGHT WITHIN REACH. PT WATCHING TV.
--- NOTE | 2017-08-27 18:53 | NUR ---
SWING BED. PT DISORIENTED AND AGGITATED, NEEDS FREQUENT REORIENTATION. BED/CHAIR ALARM. DOES NOT USE CALL LIGHT. 1PA, FWW. LEFT SIDED WEEKNESS. FAMILY HERE FOR LONG VISIT TODAY.
--- NOTE | 2017-08-27 20:13 | NUR ---
RECEIVED BEDSIDE SHIFT REPORT. PT IS IN BED. NO IV. BED ALARM IN PLACE. PT IS VISIBLE FROM NURSING STATION. 3 BED RAILS UP. CALL LIGHT WITHIN REACH. DOES NOT USE CALL LIGHT APPROPRIATLY.
--- NOTE | 2017-08-27 20:44 | NUR ---
ROUNDED CHARGE. PATIENT ASSISTED TO THE RESTROOM A SBA. PATIENT IS BACK IN BED RESTING. BED ALARM ON FOR SAFETY. CALL LIGHT IN REACH.
--- NOTE | 2017-08-27 22:48 | NUR ---
ASSESSMENT COMPLETED. LUNG SOUNDS NORMAL. HEART RATE WNL. PT UP TO BATHROOM. PT WILL NOT USE CALL LIGHT. BED ALARM IN PLACE. PT VISIBLE FROM NURSING STATION. PT HAS UNSTEADY GAIT. REFUSES TO USE WALKER. PT FOLLOWS COMMANDS ABLE TO ANSWER YES, NO QUESTIONS. COOPERATIVE WITH CARE. NO APPERENT LEFT FACIAL DROOPING. WEAK LOWER EXTREMITIES. INTERNAL GRINDER TENDER EQUAL ON UPPER EXTREMITIES. CALL LIGHT WITHIN REACH. PT READY FOR BED.
--- NOTE | 2017-08-27 23:32 | NUR ---
PT APPEARS TO BE SLEEPIN IN SUPINE POSITION. RESPIRATIONS ARE UNLABBORED, CALL LGIHT WITHIN REACH. BED ALARM IN PLACE. PT VISIBLE FROM NURSING STATION.
--- NOTE | 2017-08-28 00:38 | NUR ---
bed alarm alerted staff to pt exiting bed without using call light. up to bathroom then back to bed. pt is unsteady on feet. re-educated concrete stone fabricating supervisor light use. bed alarm in place. 2 side rails up. pt has coarse cough with medium amount of sputum production. pt able to follow commands. forgets to use call light for help. pt is visible from nursing station.
--- NOTE | 2017-08-28 02:07 | NUR ---
PT APPEARS TO BE SLEEPING. CALL LIGHT WITHIN REACH. BED ALARM IN PLACE. RESPIRATIONS EQUAL AND UNLABORED.
--- NOTE | 2017-08-28 04:37 | NUR ---
PT APPEARS TO BE SLEEPING. BED ALARM IN PLACE. CALL LIGHT WITHIN REACH. PT VISIBLE ROM NURSING STATION. RESPIRATOINS EQUAL AND UNLABORED.
--- NOTE | 2017-08-28 05:03 | NUR ---
PT SLEPT THROUGHOUT THE NIGHT. BED ALARM IN PLACE. PT ON RA. 2 SIDERAILS UP. SWING BED. NO IV. PLAN TO DC [facility] [place] TODAY. LLE WEAKNESS. HAND BATTERY STARTER EQUAL. ABLE TO FOLLOW COMMANDS. DISORIENTED TO PLACE. CARDIAC DIET.
--- NOTE | 2017-08-28 07:30 | NUR ---
SHIFT REPORT RECEIVED FROM YOAN. PATIENT APPEARS TO BE SLEEPING AT THE TIME OF REPORT. NO APPARENT DISTRESS NOTED, RR EVEN/UNLABORED. BED ALARM ON. ROOM AT NURSES STATION VIEW.
--- NOTE | 2017-08-28 07:54 | NUR ---
Patient out of bed, bedalarm sounding.1 1 person asist to br. Patient used toilet and brushed teeth at sink and washed face and hands. Assisted pt back to edge of bed, breakfast in front. Patient reports he's not hungry, but drank the bottle of ensure right away. Bed alarm on. Call light in reach
--- NOTE | 2017-08-28 08:21 | NUR ---
PT STATED HE WAS NOT HUNGRY AND HAD NOT TOUCHED HIS BREAKFAST YET. STATED "I DONT KNOW" WHEN ASKED HOW HE WAS FEELING TODAY. TOLERATED VITALS/FULL ASSESSMENT WELL. MOIST COUGH PRESENT. NOT ORIETNED TO PLACE/TIME. DID NOT KNOW WHERE HE WAS. MULTIPLE QUEING FOR CERTAIN QUESTIONS. PT VOICED NO PAIN OR CONCERNS AT THIS TIME. CALL LIGHT WITHIN REACH AND REMINDED TO USE. BEGAN EATING HIS BREAKFAST.
--- NOTE | 2017-08-28 09:25 | NUR ---
PT STATES HE IS IN PAIN AFTER PT. . CANNOT STATE WHERE THE PAIN IS LOCATED OR PUT IT ON A NUMERICAL SCALE (0-10). GIVEN PRN TYLENOL. PT HAS NO COMPLAINTS AT THIS TIME. VISITING. CALL LIGHT WITHIN REACH, INSTRUCTED TO USE.
--- NOTE | 2017-08-28 09:40 | NUR ---
PATIENT RESTING IN BED DENIES PAIN AT THIS TIME. SHIFT ASSESSMENT DONE BY ME AND STUDENT NURSE. EQUAL STRENGTH IN BOTH SIDE. PATIENT IS SOME WHAT IMPULSIVE. ALERT AND ORIENTED TO PLACE. MORNING MEDS ADMINISTERED BY STUDENT NURSE. BED ALARM ON.
--- NOTE | 2017-08-28 10:50 | NUR ---
PATIENT IS UP WALKING WITH PHYSICAL THERAPIST.
--- NOTE | 2017-08-28 11:59 | NUR ---
PATIENT RESTING IN BED DENIES PAIN AT THIS TIME. REFUSED LUNCH BUT DRANK HIS ENSURE. NO FURTHER COMPLAINTS. BED ALARM ON. WILL CONTINUE TO MONITOR PATIENT.
--- NOTE | 2017-08-28 12:03 | NUR ---
PT LAYING IN BED, WATCHING TV. HASN'T TOUCHED ANY OF LUNCH BESIDES ENSURE. STATES HE IS NOT HUNGRY. TRAY LEFT BY BEDSIDE IN CASE HE WANTS A LITTLE MORE. PT STATES NO CONCERNS AT THIS TIME, "IM GOOD". CALL LIGHT WITHIN REACH.
--- NOTE | 2017-08-28 12:33 | NUR ---
PT RESTING IN BED, SEEMS BORED. TRIED TO EXPRESS THIS THOUGHT, BUT REALLY STRUGGLED GETTING HIS THOUGHTS SPOKEN IN AN AUDIBLE, UNDERSTANDABLE FASHION. PT ALLOWED ME TO PRAY FOR HIM. PT SAID HE WOULD LIKE TO GO FOR A WALK. I CON- NECTED WITH Milla CARRIZALES AND SHE WAS ABLE TO TAKE HIM FOR ANOTHER WALK. WILL FOLLOW NEEDED
--- NOTE | 2017-08-28 16:51 | NUR ---
PATIENT ASSISTED TO BATHROOM , NOW SITTING AT THE BEDSIDE EATING DINNER. AT BEDSIDE. NO APPARENT DISTRESS.
--- NOTE | 2017-08-28 17:57 | NUR ---
PT SET OFF BED ALARM BY GETTING UP TO GO TO THE BATHROOM. I IMMEDIATELY RESPONDED HELPED PT TO BATHROOM, PT VOIDED, AND THEN RETURNED TO BED. PT IS NOW RESTING IN BED SAFELY WITH CALL LIGHT IN REACH AND BED ALARM ON.
--- NOTE | 2017-08-28 18:17 | NUR ---
PATIENT HAD DONE WELL TODAY. WALKED WITH PHYSICAL THERAPIST TWICE TODAY. TRIED TO GET OUT OF BED MULTIPLE TIMES. POOR APPETITE. STRENGHT EQUAL TO BOTH SIDES. NO CHANGES. NO IV SITE. GOOD URINE OUTPUT.
--- NOTE | 2017-08-28 19:25 | NUR ---
ROUNDED CHARGE. PATIENT IS RESTING IN BED WATCHING TV. PATIENT DENIES ANY NEEDS. CALL LIGHT IN REACH. AND BED ALRM ON FOR SAFETY.
--- NOTE | 2017-08-28 20:13 | NUR ---
RECEIVED BEDSIDE REPORT FROM DAY SHIFT RN. PT IS RESTING IN BED. BED ALARM IN PLACE. NO IV ACCESS. REPORTS NO PAIN AT THIS TIME. REPORTS NO NEEDS AT THIS TIME. CALL LIGHT WITHIN REACH. VISIBLE FROM NURSING STATION.
--- NOTE | 2017-08-28 20:32 | NUR ---
VITALS AND I&OS DONE AND CHARTED. BEDSIDE TABLE AND CALL LIGHT WITHIN REACH. PT NEEDS NOTHING ELSE AT THIS TIME.
--- NOTE | 2017-08-28 21:30 | NUR ---
ASSESSMENT COMPLETED PT HAS EQUAL HAND HEAD CHOPPER. PT APPEARS SOMEWHAT UNSTEADY ON HIS FEET. LUNG SOUNDS ARE DIM IN THE BASE. HEART SOUNDS ARE REGULAR. NO APPARENT FACIAL DROOPING. PT IS ORIENTED TO SELF. ANSWERS QUESTIONS APPROPRIATLEY. APPEARS TO BE ABLE TO FOLLOW ALONG CONVERSATION. CALL LIGHT WITHIN REACH. BED ALARM IN PLACE.
--- NOTE | 2017-08-28 22:00 | NUR ---
BED ALARM ALERTED STAFF TO PT EXITING BED FOR BATHROOM. PT STILL FORGETS TO USE CALL LIGHT. RE EDUCATED PT ON SAFETY AND PREVENTION OF FALLS. PT BACK TO BED. BED ALARM IN PLACE. PT VISIBLE FROM NURISING STATION. WILL DANIEL BATISTA. CALL LIGHT WITHIN REACH.
--- NOTE | 2017-08-28 22:50 | NUR ---
HELPED PT TO THE BATHROOM , AND BACK TO BED. PUT ON HIS BED ALARM.BEDSIDE TABLE AND CALL LIGHT WITHIN REACH.
--- NOTE | 2017-08-29 00:11 | NUR ---
PT APPEARS TO BE SLEEPING ON LEFT SIDE. RESPIRATIONS EQUAL AND UNLABORED. PT HAS A HACKING COUGH WITH MODERATE SPUTUM PRODUCTION. CALL LIGHT WITHIN REACH. BED ALARM IN PLACE.
--- NOTE | 2017-08-29 01:06 | NUR ---
BED ALARM ALERTED STAFF OF PT EXITING BED FOR BATHROOM. SBA TO BATHROOM THEN BACK TO BED. PT DOES NOT USE CALL LIGHT. BED ALARM BACK ON. VISIBLE FROM NURSING STATION.
--- NOTE | 2017-08-29 02:43 | NUR ---
PT APPEARS TO BE SLEEPING ON LEFT SIDE. RESPITORY RATE IS 16. RESPIRATIONS ARE EQUAL AND UNLABORED. PT HAS A HACKING COUGH WITH SMALL AMMOUN OF SPUTUM PRODUCTION. BED ALARM IN PLACE. PT VISIBLE FROM NURSING STATION. PERSONAL ITMES AT BEDSIDE.
--- NOTE | 2017-08-29 04:14 | NUR ---
PT APPEARS TO BE SLEEPING. RESPIRATIONS ARE EQUAL AND NONLABORED. BED ALARM IN PLACE. CALL LIGHT WITHIN REACH. PT VISIBLE FROM NURSING STATION.
--- NOTE | 2017-08-29 05:05 | NUR ---
PT SLEPT MOST THE NIGHT GETTING UP ONCE TO USE RESTROOM. LUNGS LEAR. HEART TONES WNL. PT APPEARS UNSTEADY ON FEET BUT STRENGTH IS EQUAL BILAT. NO IV SITE. PLAN TO WORK WITH PT/OT/ST AND DC THURSDAY TO [facility] POSSIBLY. SWING BED. CARDIAC DIET. SBA. ENCOURAGE PO INTAKE. BED ALARM INPLACE, PT IS IMPULSIVE AND DOESN'T USE CALL [facility].
--- NOTE | 2017-08-29 05:42 | NUR ---
BED ALARM ALERTED STAFFTO PT EXITING BED FOR BR. BACK TO BED NOW. REMINDED OF CALL LIGHT. WITHIN REACH. BED ALARM IN PLACE. VISIBLE FROM NURSING STATION.
--- NOTE | 2017-08-29 07:39 | NUR ---
SHIFT REPORT RECEIVED FROM LIUDMILA. PATIENT RESTING IN BED AWAKE. DENIES ANY PAIN AT THIS TIME.
--- NOTE | 2017-08-29 10:05 | NUR ---
PT WALKED TO THE BATHROOM VOIDED, WASHED FACE AND HANDS, BRUSHED TEETH, AND THEN SAT UP IN CHAIR FOR BREAKFAST. PT DID NOT WANT TO EAT HIS BREAKFAST BUT DRANK AN ENSURE. PT AGREED TO SHOWER, WILL SET UP THE SHOWER FOR HIM.
--- NOTE | 2017-08-29 12:36 | NUR ---
DR TUCKER WAS IN TO SEE AND EVALUATE PATIENT. PATIENT SEEM TO BE FRUSTRATED WITH HIS MEDICAL SITUATION. STILL HAVE EXPRESSIVE APHASIA. PATIENT UNABLE TO FIND WORDS AND EXPRESS HIS CONCERNS. AT BEDSIDE DURING MD ROUND. PATIENT HAS DECREASED APPETITE, ONLY DRINK ENSURE.
--- NOTE | 2017-08-29 16:42 | NUR ---
PATIENT RESTING IN BED AT THIS TIME, CHECKED ON PATIENT NO REQUEST FOR ANYTHING. WILL CONTINUE TO MONITOR
--- NOTE | 2017-08-29 18:58 | NUR ---
PATIENT HAD AN UNEVENTFUL DAY. HAS BEEN UP TO BATHROOM MULTIPLE TIMES. WAS A LITTLE FRUSTRATED THIS AM. SEEMED RELAXED THIS PM. ATE MOST OF HIS DINNER. AMBULATED IN THE HALLWAY WITH NURSING PERSONNEL.
--- NOTE | 2017-08-29 20:06 | NUR ---
Charge nurse note:, Pt alert to self, steady gait, was sitting up by nurses desk, Pt walked up and down hallways with Mehul RN, tolerated well. Back to room, laying down in bed. Pleasant, following directions well. Bed and chair alarms on
--- NOTE | 2017-08-29 20:07 | NUR ---
RECEIVED REPORT FROM DAY SHIFT RN. PT IS AT [facility]. READING MAGAZINES.
--- NOTE | 2017-08-29 20:26 | NUR ---
Moist, non productive cough present, medicated ahsan Rolon.
--- NOTE | 2017-08-29 22:00 | NUR ---
PT IS IN BED. LYING ON RIGHT SIDE. APPEARS TO BE SLEEPING. RR WNL. CALL LIGHT WITHIN REACH. PT VISIBLE FROM NURSING STATION.
--- NOTE | 2017-08-30 00:55 | NUR ---
PT APPEARS TO BE SLEEPING. RR WNL. VISIBLE FROM NURSING STATION.
--- NOTE | 2017-08-30 01:13 | NUR ---
PT UP TO BATHROOM. FORGETS TO USE CALL LIGHT. KRISTAN TO BATHROOM AND BACK TO BED. PT REFUSES TO PUT PAJAMA PANTS ON. WANTS TO KEEP JEANS ON. VISIBLE FROM NURSING STATION.
--- NOTE | 2017-08-30 03:00 | NUR ---
PT APPEARS TO BE SLEEPING. RR WNL. VISIBLE FROM NURSING STATION.
--- NOTE | 2017-08-30 05:06 | NUR ---
PT APPEARS TO BE SLEEPING. RR WNL. NO APPERENT STRESS AT THIS TIME. VIISBLE FROM NURSING STATION.
--- NOTE | 2017-08-30 05:07 | NUR ---
PT HAD GOOD NIGHT. STILL IMPULSIVE TO GET UP TO BATHROOM. TRIED LEAVING FACILITY 1 TIME LAST NIGHT. REORIENTS WELL. NEEDS REORIENTING FREQUENTLY. PT IS UNSTEADY ON FEET. NO IV ACCESS. PLAN TO DC TODAY TO [facility].
--- NOTE | 2017-08-30 07:35 | NUR ---
BEDSIDE REPORT RECEIVED FROM LIUDMILA RODRIGUEZ. WHITE BOARD UPDATED. PATIENT AWAKENS TO VOICE. SBA. IMPULSIVE. WEARING STREET CLOTHES.
--- NOTE | 2017-08-30 08:39 | NUR ---
PT ORIENTED TO SELF ONLY. FAMILY AT BEDSIDE. IMPULSIVE. UP TO BATHROOM OR HALLS FREQUENTLY. ACTIVE BT. NASAL CONGESTION. GAVE TESSALON PERLE FOR DRY HACKING COUGH. APPETITE POOR AT THIS TIME. STRENGTH EQUAL BILATERALLY.
--- NOTE | 2017-08-30 09:56 | NUR ---
PATIENT WALKING WITH PT.
--- NOTE | 2017-08-30 10:16 | NUR ---
PT WORKED WITH PHYSICAL THERAPY THIS MORNING. LYING IN BED NOW WITH FEET UP ON END OF BED.
--- NOTE | 2017-08-30 10:28 | NUR ---
PATIENT SITTING UP IN CHAIR WATCHING TV. CALL LIGHT WITHIN REACH. NO OTHER NEEDS AT THIS TIME.
--- NOTE | 2017-08-30 12:07 | NUR ---
PATIENT SITTING UP IN BED. PATIENTS IN ROOM. NO OTHER NEEDS AT THIS TIME.
--- NOTE | 2017-08-30 14:11 | NUR ---
PATIENT SITTING UP IN BED WATCHING TV. CALL LIGHT WITHIN REACH. FRESH ICE WATER. NO OTHER NEEDS AT THIS TIME.
--- NOTE | 2017-08-30 15:17 | NUR ---
PATIENT APPEARS TO BE FLUSTERED. PATIENT IS SITTING UP AT THE NURSES STATION. NO OTHER NEEDS AT THIS TIME.
--- NOTE | 2017-08-30 15:47 | NUR ---
PATIENT SITTING UP IN BED WATCHING TV. PATIENTS IN ROOM. NO OTHER NEEDS AT THIS TIME.
--- NOTE | 2017-08-30 17:08 | NUR ---
pt resting quietly in bed watching television. dinner delivered and sitting on bedside table.
--- NOTE | 2017-08-30 17:52 | NUR ---
PATIENT SITTING UP IN BED WATCHING TV. FRESH ICE WATER. CALL LIGHT WITHIN REACH. NO OTHER NEEDS AT THIS TIME.
--- NOTE | 2017-08-30 17:53 | NUR ---
WORKED WITH PHYSICAL THERAPY TODAY. UNEVENTFUL DAY. RESTED ON AND OFF IN BED. APPETITE MODERATE. TESSALON PERLES AND ROBITUSSIN GIVEN FOR COUGH. CHEST XRAY NEGATIVE. PT/OT/ST. [facility]CHAR[facility] [place].
--- NOTE | 2017-08-30 19:34 | NUR ---
RECIEVED BEDSIDE REPORT FROM LUH RODRIGUEZ. PT APPEARS TO BE SLEEPING IN BED WILL HOME CLOTHS ON. RESPORATIONS ARE EQUAL AND UNLABORED. NO IV ACCESS. PT VISIBLE FROM NURSING STATION.
--- NOTE | 2017-08-30 21:05 | NUR ---
VITALS AND I&OS DONE AND CHARTED. BEDSIDE TABLE AND CALL LIGHT WITHIN REACH. PT NEEDS NOTHING ELSE AT THIS TIME.
--- NOTE | 2017-08-30 21:59 | NUR ---
ASSESSMENT COMPLETED. PT IS COOPERATIVE WITH CARE. STRENGTH IS +5 ALL FOUR EXTREMITES. LUNGS SOUND CLEAR. HEART TONES REGUAL WITH NO ABNORMAL SOUNDS HEARD. ABDOMINAL ROUND AND SOFT. BOWEL TONES ACTIVE. PT UP TO BATHROOM MULTIPLE TIMES. PT IS DISORIENTED TO PLACE AND TIME. PT HAS HACKING COUGH WITH MODERATE SPUTUM PRODUCTION. ROBITUSSIN AND TESLON PERELS GIVEN. PT IS TO BED NOW FOR THE NIGHT. VISIBLE FROM NURSING STATION.
--- NOTE | 2017-08-30 23:51 | NUR ---
PT UP TO BATHROOM WITH SBA. PT STILL DOESN'T USE CALL LIGHT. VISIBLE FROM NURSING STATION. BED ALARM IN PLACE. PT HAS PERSISTANT HACKING COUGH. CALL LIGHT WITHIN REACH.
--- NOTE | 2017-08-31 00:08 | NUR ---
BED ALARM ALERTED TO PT EXITING BED WITHOUT CALLING FOR ASSISTANCE. PT UP TO BR WITH SBA. HAD BM THEN BACK TO BED. PT STATED " I GUESS INM GONNA WAIT FOR MY TO COME." REORIENTED PT TO PLACE. ENCOURAGED SLEEP. PT BACK TO BED. BED ALARM IN PLACE. VISIBLE FROM NURSING STATION.
--- NOTE | 2017-08-31 02:20 | NUR ---
PT APPEARS TO BE SLEEPING. RESPIRATIONS EQUAL AND NONLABORED. BED ALARM IN PLACE. VISIBLE FROM NURSING STATION.
--- NOTE | 2017-08-31 04:02 | NUR ---
PT WOKE UP FOR THE BATHRROM. PT WAS CONFUSED AND WANTED TO LEAVE HIS ROOM IN HIS SOCKS. WHEN ASKED WERE HE WAS GOING PT STATED, " I DON'T KNOW WHERE IM F GOING, LEAVE ME ALONE" "STOP FOLLOWING ME" I TOLD THE PT I WAS JUST THERE TO MAKE SURE HE WAS SAFE AND I WAS THERE TO HELP. HE STATED,"I DON'T NEED YOUR GOD DAM HELP, LEAVE ME ALONE!" THE PT WAS UNABLE TO BE REDIRECTED AND STARTED TO GET MORE ANGRY AND YELL IN THE ESPINOZA I FOLLOWED. PT CONTINUED TO WALK DOWN THE ESPINOZA. THIS NURSE PROCEDED TO FOLLOW AND TRIED REORIENTING PT AND REDIRECTING PT BACK TO THE ROOM BUT, THIS ONLY MADE THE PT MORE ANGRY. BREED TO WEAN PRODUCTION TECHNICIAN AND TWO MALE NURSES CAME TO THE FLOOR TO TRY AND CALM THE PT DOWN. PT WALKING EPSINOZA DOWN THE ESPINOZA WITH MALE NURSE AT THIS TIME. THIS PT IS UNSTEADY ON HIS FEET AND A FALL RISK. PT IS QUIET LONG HE ISN'T TALKED BEING TALKED TO.
--- NOTE | 2017-08-31 05:35 | NUR ---
PT WALKED HALLS FOR A WHILE WITH ARIELA RODRIGUEZ. JUST CAME BACK TO NURSING STATION. PT HAS CALMED DOWN AND IS BEING PLEASENT. PT REPORTED BACK PAIN OF 5/10 TYLENOL 500MG GIVEN. PT SITTING AT NURSING STATION AT THIS TIME.
--- NOTE | 2017-08-31 05:37 | NUR ---
PT SLEPT MOST OF THE NIGHT. WOKE UP AT 0500 CONFUSED. WALKED THE HALLS AND WAS BECOMING IRATE, YELLING IN THE HALLS. NURSE ARIELA WALKED WTIH HIM FOR ABOUT AN HOUR. 1 TYLENOL GIVEN AT 0540 FOR BACK PAIN. PLAN TO DC TO [facility].
--- NOTE | 2017-08-31 07:45 | NUR ---
PATIENT SITTING AT NURSES STATION THIS MORNING. REPORTED TO BE SLEEPING ALL NIGHT UNTIL ABOUT 0500 AND THEN WOKE UP AGITATED. STAFF NEEDED TO CALM PATIENT. AMBULATED FOR 40 MINUTES WITH NIGHT STAFF. PATIENT IN ROOM SITTING IN RECLINER EATING BREAKFAST NOW.
--- NOTE | 2017-08-31 09:18 | NUR ---
PT SHOWERED, BED MADE, FRESH WATER SHAVED AM CARE. SET UP FOR BRK. HAS CALL LIGHT IN REACH. IN ROOM THER NOW.
--- NOTE | 2017-08-31 09:30 | NUR ---
RECIEVED A CALL FROM WILLA AT [facility] STATING THAT THEY WOULD BE GLAD TO ACCEPT PT AND THAT THEY WOULD LIKE UPDATED THERAPY NOTES AND A DC SUMMARY AND ORDERS. THESES WILL BE SENT.
--- NOTE | 2017-08-31 10:07 | NUR ---
FAXED UPDATED THERAPY NOTES, DC SUMMARY AND ORDERS TO [facility] IN REHAB FACILITY. I CALLED AND AGAIN TALKED WITH WILLA AND SHE STATED WE WOULD HAVE TO WAIT TO SEND HIM THEY ARE CALLING IN MORE NURSING STAFF. ALSO TALKED WITH PT AND UPDATED HER TO WHEN HE WOULD BE BEING DC'D
--- NOTE | 2017-08-31 11:43 | NUR ---
PT SITTING ON SIDE OF BED, WITH AND FRIEND PRESENT. PT IS TO BE DC'D TO [facility]. HE ALWAYS SHAKES MY HAND, AND THANKED ME FOR COMING IN. P.T. AND O.T. HAVE BOTH BEEN BUSY GETTING HIM READY TO DC. HIS WAS ON THE PHONE, WHICH SOUNDED LIKE SHE WAS MAKING LAST MIN PLANS FOR MOVE. [facility] WILL BE AVAILABLE IF NEEDED
--- NOTE | 2017-08-31 14:17 | NUR ---
VISITED WITH PT'S DAUGHTER ELISEO-SHE IS ENCOURAGED WITH [employer] PT HAS MADE THUS FAR. FAMILIAR WITH [facility], AND FEELS IF PT WILL WORK, MORE PRO- BEBE CAN BE MADE TOWARDS RECOVERY. PLEASED WITH CARE AT [facility].
== END 2017-08-31 12:20 | DRG 57 ==
LOC: MS 13:56
PROVIDERS: ADMIT Internal Medicine
DX: I69.320 Aphasia following cerebral infarction (principal); I69.390 Apraxia following cerebral infarction; I12.9 Hypertensive chronic kidney disease with stage 1 through stage 4 chronic kidney disease, or unspecified chronic kidney disease; N18.3 Chronic kidney disease, stage 3 (moderate); N40.0 Benign prostatic hyperplasia without lower urinary tract symptoms; E03.9 Hypothyroidism, unspecified; G89.29 Other chronic pain; M54.9 Dorsalgia, unspecified; Z79.82 Long term (current) use of aspirin; Z79.899 Other long term (current) drug therapy; Z88.5 Allergy status to narcotic agent; Z88.8 Allergy status to other drugs, medicaments and biological substances; Z96.89 Presence of other specified functional implants
CPT/HCPCS: 71046; 92507; 97110; 97112; 97116; 97162; 97166; 97530; 97535; J1650

== ENCOUNTER 2018-08-16 03:34 | Inpatient (IN) | payer MEDICARE ==
[~2018-08-16] VITALS: Ht 177.8 cm; Wt 79.5 kg
--- OUTSIDE RECORDS SUMMARY | ~2018-08-16 | XMS | Clinical Summary ---
Demographics + + + | Address | [address] | | | [place] [address] | + + + | Home Phone | | + + + | Preferred Language | Unknown | + + + | Marital Status | | + + + | Mu-Ism Affiliation | Unknown | + + + | Race | Unknown | + + + | Ethnic Group | Unknown | + + + Author + + + | Author | [facility] | | | and Marcelana | + + + | Organization | [facility] | | | and [place] | + + + | Address | Unknown | + + + | Phone | Unavailable | + + + Support + + + + + | Name | Relationship | Address | Phone | + + + + + | Brie Cabrera | ECON | [address] | | | | | [place], [place] | | | | | [address] | | + + + + + | Chloe Malik | ECON | [place], [place] | | | | | [address] | | + + + + + | Ivett Inrgam | ECON | Unknown | | + + + + + | Mj Cabrera | ECON | Unknown | | + + + + + Care Team Providers + +------+ + | Care Starch And Prosize Mixer Name | Role | Phone | + +------+ + | Josr Henriquez | PP | | | MD | | | + +------+ + Allergies + + + + + + | Active Allergy | Reactions | Severity | Noted | Comments | | | | | Date | | + + + + + + | Fentanyl | | | 07/28/19 | | | | | | 15 | | + + + + + + | Cyclobenzaprine | | | 07/28/19 | | | | | | 15 | | + + + + + + | Morphine Sulfate | | | | | + + + + + + | Oxycodone | | | | | + + + + + + | Fluoxetine | | | 07/28/19 | | | | | | 15 | | + + + + + + | Mirtazapine | | | 09/01/19 | | | | | | 18 | | + + + + + + Medications + + + +---------+------+------+-------+ | Medication | Sig | Dispensed | Refills | Star | End | Statu | | | | | | t | Date | s | | | | | | Date | | | + + + +---------+------+------+-------+ | aspirin (ASPIRIN | Take 81 mg by mouth | | 0 | 09/ | | Activ | | LOW DOSE) 81 MG EC | Daily. | | | 3/20 | | e | | tablet | | | | 12 | | | + + + +---------+------+------+-------+ | Multiple | Take by mouth. | | 0 | | | Activ | | Vitamins-Minerals | | | | | | e | | ([facility] | | | | | | | | PO) | | | | | | | + + + +---------+------+------+-------+ | | Take 3 mLs by | 360 mL | 1 | 05/0 | | Activ | | albuterol-ipratropiu | nebulization 3 times | | | 2/20 | | e | | m (DUONEB) 2.5-0.5 | daily. | | | 18 | | | | mg/3 mL SOLN | | | | | | | + + + +---------+------+------+-------+ | atorvaSTATin | Take 1 tablet by | 30 | 1 | 05/0 | | Activ | | (LIPITOR) 10 mg | mouth nightly. | tablet | | 2/20 | | e | | tablet | | | | 18 | | | + + + +---------+------+------+-------+ | benzonatate | Take 1 capsule by | 90 | 1 | 05/0 | | Activ | | (TESSALON) 100 mg | mouth 3 times daily. | capsule | | 2/20 | | e | | capsule | | | | 18 | | | + + + +---------+------+------+-------+ | docusate sodium | Take 100 mg by mouth | 30 | 1 | 05/0 | | Activ | | (COLACE) 100 MG | 2 times daily. | capsule | | 2/20 | | e | | capsule | | | | 18 | | | + + + +---------+------+------+-------+ | gabapentin | Take 2 capsules by | 30 | 1 | 05/0 | | Activ | | (NEURONTIN) 300 mg | mouth nightly. | capsule | | 2/20 | | e | | capsule | | | | 18 | | | + + + +---------+------+------+-------+ | guaiFENesin | Take 10 mLs by mouth | 90 mL | 1 | 05/0 | | Activ | | (ROBITUSSIN) 100 | every 4 hours as | | | 2/20 | | e | | mg/5 mL SOLN | needed for Cough. | | | 18 | | | + + + +---------+------+------+-------+ | losartan (COZAAR) | Take 1 tablet by | 30 | 1 | 05/0 | | Activ | | 25 mg tablet | mouth Daily. | tablet | | 3/20 | | e | | | | | | 18 | | | + + + +---------+------+------+-------+ | senna (SENOKOT) | Take by mouth Twice | 60 | 1 | 05/0 | | Activ | | 8.6 mg tablet | daily as needed | tablet | | 2/20 | | e | | | for Constipation. | | | 18 | | | + + + +---------+------+------+-------+ | tamsulosin | Take 1 capsule by | 30 | 1 | 05/0 | | Activ | | (FLOMAX) 0.4 mg CAPS | mouth daily (after | capsule | | 2/20 | | e | | | dinner). | | | 18 | | | + + + +---------+------+------+-------+ | donepezil | Take 1 tablet by | 30 | 1 | 05/0 | | Activ | | (ARICEPT) 10 MG | mouth nightly. | tablet | | 2/20 | | e | | tablet | | | | 18 | | | + + + +---------+------+------+-------+ | levothyroxine | Take 1 tablet by | 30 | 1 | 05/0 | | Activ | | (SYNTHROID) 175 MCG | mouth Daily. | tablet | | 3/20 | | e | | tablet | | | | 18 | | | + + + +---------+------+------+-------+ Active Problems + + + | Problem | Noted Date | + + + | CVA (cerebrovascular accident) | 09/08/2017 | + + + | Aphasia | 09/08/2017 | + + + | Bronchitis | 09/08/2017 | + + + | Hypertension | 09/08/2017 | + + + | Bilateral sacroiliitis | 09/18/2014 | + + + | Chronic low back pain | 09/18/2014 | + + + | Lumbar radiculopathy | 08/02/2014 | + + + | DDD (degenerative disc disease), lumbar | 08/02/2014 | + + + | S/P lumbar fusion | 08/02/2014 | + + + | COUGH, CHRONIC | | + + + | SHORTNESS OF BREATH | | + + + | COPD | | + + + | DISORDERS OF DIAPHRAGM | | + + + + + | Overview: ICD-10 Record update | + + + +---+ | DYSPNEA ON EXERTION | | + +---+ | ASTHMA, EXTRINSIC | | + +---+ | PULMONARY FUNCTION TESTS, ABNORMAL | | + +---+ | G E R D | | + +---+ | SLEEP APNEA | | + +---+ Immunizations + + + + | Name | Dates Previously Given | Next Due | + + + + | PNEUMOCOCCAL | 09/01/2017 | | | CONJUGATE 13-VALENT | | | | (PCV13) | | | + + + + Family History + + +------+ + | Medical History | Relation | Name | Comments | + + +------+ + | Alcohol abuse | Father | | | + + +------+ + | Heart disease | Father | | | + + +------+ + | High blood pressure | Father | | | + + +------+ + | Stroke | Father | | | + + +------+ + | Alcohol abuse | Mother | | | + + +------+ + + +------+--------+ + | Relation | Name | Status | Comments | + +------+--------+ + | Father | | | | + +------+--------+ + | Mother | | | | + +------+--------+ + Social History + +-------+ +--------+ + | Tobacco Use | Types | Packs/Day | Years | Date | | | | | Used | | + +-------+ +--------+ + | Former Smoker | | | | Quit: 05/11/2002 | + +-------+ +--------+ + + + +---------+ + | Alcohol Use | Drinks/We | oz/Week | Comments | | | ek | | | + + +---------+ + | Yes | | | Rare | + + +---------+ + + + + | Sex Assigned at | Date Recorded | | | | + + + | Not on file | | + + + + + + + | Job Start Date | Occupation | Industry | + + + + | Not on file | Not on file | Not on file | + + + + + + + + | Travel History | Travel Start | Travel End | + + + + + + | No recent travel history available. | + + Last Filed Vital Signs + + + + | Vital Sign | Reading | Time Taken | + + + + | Blood Pressure | 124/78 | 09/09/2017800 PDT | + + + + | Pulse | 80 | 09/09/20171204 PDT | + + + + | Temperature | 36.2 C (97.2 F) | 09/09/2017800 PDT | + + + + | Respiratory Rate | 18 | 09/09/20171204 PDT | + + + + | Oxygen Saturation | 95% | 09/09/20171204 PDT | + + + + | Inhaled Oxygen | - | - | | Concentration | | | + + + + | Weight | 79.1 kg (174 lb 6.1 | 09/07/2017 1623 PDT | | | oz) | | + + + + | Height | 177.8 cm (5' 10") | 08/31/2017 1400 PDT | + + + + | Body Mass Index | 25.02 | 08/31/2017 1400 PDT | + + + + Plan of Treatment + + + + + | Health Maintenance | Due Date | Last Done | Comments | + + + + + | Vaccine: | | | | | Dtap/Tdap/Td (1 - | 2 | | | | Tdap) | | | | + + + + + | Vaccine: Zoster (1 | | | | | of 2) | 3 | | | + + + + + | Adult Annual | | | | | Wellness Visit | 5 | | | + + + + + | Vaccine: | | 09/01/2017 | | | Pneumococcal 65+ | 9 | | | | Low/Medium Risk (2 | | | | | of 2 - PPSV23) | | | | + + + + + | Vaccine: Influenza | | | | | (Season Ended) | 9 | | | + + + + + Results Not on filefrom Last 3 Months Insurance + +--------+ +--------+ +---------+--------+ | Payer | Benefi | Subscriber | Effect | Phone | Address | Type | | | t Plan | ID | jovita | | | | | | / | | Dates | | | | | | Group | | | | | | + +--------+ +--------+ +---------+--------+ | MEDICARE | MEDICA | [id number] | | [phone] | | Medica | | | RE | | 993-Pr | 5 | | re | | | PART A | | esent | | | | | | AND B | | | | | | + +--------+ +--------+ +---------+--------+ | AARP | AARP | [id number] | | [phone] | | Indemn | | | MDCR | | 998-Pr | 0 | | ity | | | SUPPL | | esent | | | | + +--------+ +--------+ +---------+--------+ + +--------+ +--------+ + + | Guarantor Name | Accoun | Relation to | Date | Phone | Billing Address | | | t Type | Patient | of | | | | | | | | | | + +--------+ +--------+ + + | Dennis Cabrera | Person | Self [birth year] | [address] | | | al/Fam | | 1935 | [phone] | [place] | | | connie | | | [address] (Home) | [phone] | + +--------+ +--------+ + + Advance Directives Patient has advance care planning documents, and code status on file. For more information, please contact:[facility] and [place] [address] + + + + + | Code Status | Date | Date | Comments | | | Activated | Inactivated | | + + + + + | Full Code | 08/31/2017 | 09/09/2017 | | | | 14:55 | 16:51 | | + + + + +
--- OUTSIDE RECORDS SUMMARY | ~2018-08-16 | XMS | Clinical Summary ---
Demographics + + + | Address | [address] | | | [place] [address] | + + + | Home Phone | | + + + | Preferred Language | Unknown | + + + | Marital Status | | + + + | Protestant Affiliation | 1028 | + + + | Race | Unknown | + + + | Ethnic Group | Unknown | + + + Author + + + | Author | [facility] | + + + | Organization | [facility] | + + + | Address | Unknown | + + + | Phone | Unavailable | + + + Support + + + + + | Name | Relationship | Address | Phone | + + + + + | Joseph Castle | ECON | [address] | | | | | [place] | | | | | [phone] | | + + + + + Care Team Providers + +------+ + | Care Water Quality Control Engineer Name | Role | Phone | [...] | | | | Activ | | [id number] | mouth daily. | | | | [...] +------+-------+ + | MEDICARE | MEDICA | [id number] | | | [address] | | | RE | | | | [place] [address] | | | IP-OP | | | | | + +--------+ +------+-------+ + | [facility] | [place] | [id number] | | | | | | | [...] Self | [birth year] | Home: | [address] | | | al/Fam | | 1935 | [phone] [place] | | | connie | | [phone] | + +--------+ +--------+ + +
--- OUTSIDE RECORDS SUMMARY | ~2018-08-16 | XMS | Clinical Summary ---
Demographics + + + | Address | [address] | | | [place] [address] | + + + | Home Phone | | + + + | Preferred Language | Unknown | + + + | Marital Status | | + + + | Zoroastrian Affiliation | Unknown | + + + | Race | Unknown | + + + | Ethnic Group | Unknown | + + + Author + + + | Author | [facility] | | | and Marcelana | + + + | Organization | [facility] | | | and [place] | + + + | Address | Unknown | + + + | Phone | Unavailable | + + + Support + + + + + | Name | Relationship | Address | Phone | + + + + + | Brie Cabrera | ECON | [address] | | | | | [place], [place] | | | | | [address] | | + + + + + | Chloe Malik | ECON | [place], [place] | | | | | [address] | | + + + + + | Ivett Ingram | ECON | Unknown | | + + + + + | Mj Cabrera | ECON | Unknown | | + + + + + Care Team Providers + +------+ + | Care Field Aide Name | Role | Phone | + [...] | | | | e | | ([facility] | | | | | | | [...] +--------+ +---------+--------+ | MEDICARE | MEDICA | [id number] | | [phone] | | Medica | | | RE | | [phone] | [phone] | | re | | | PART A | | esent | | | | | | AND B | | | | | | + +--------+ +--------+ +---------+--------+ | AARP | AARP | [id number] | | [phone] | | Indemn | [...] connie | | | 8 (Home) | [phone] | + +--------+ +--------+ + + Advance Directives Patient has advance care planning documents, and code status on file. For more information, please contact:[facility] [place] [address] + + + + + | Code Status | Date | Date | Comments | | | Activated | Inactivated | | + + + + + | Full Code | 08/31/2017 | 09/09/2017 | | | | 14:55 | 16:51 | | + + + + +
--- OUTSIDE RECORDS SUMMARY | ~2018-08-16 | XMS | Clinical Summary ---
Demographics + + + | Address | [address] | | | [place] [address] | + + + | Home Phone | | + + + | Preferred Language | Unknown | + + + | Marital Status | | + + + | Gnosticist Affiliation | 1028 | + + + | Race | Unknown | + + + | Ethnic Group | Unknown | + + + Author + + + | Author | [facility] | + + + | Organization | [facility] | + + + | Address | Unknown | + + + | Phone | Unavailable | + + + Support + + + + + | Name | Relationship | Address | Phone | + + + + + | Joseph Castle | ECON | [address] | | | | | [place] | | | | | [address] | | + + + + + Care Team Providers + +------+ + | Care Loan And Credit Manager Name | Role | Phone | [...] | | | | Activ | | GO-Dttcifxjiw-Loduto | mouth daily. | | | | [...] +------+-------+ + | MEDICARE | MEDICA | [id number] | | | [place] [address] | | | RE | | | | [place] [phone] | | | IP-OP | | | | | + +--------+ +------+-------+ + | [facility] | [place] | [id number] | | | | | | | [...] Self | [birth year] | Home: | [address] | | | al/Fam | | 1935 | [phone] | [place] | | | connie | | | [phone] | [phone] | + +--------+ +--------+ + +
--- OUTSIDE RECORDS SUMMARY | ~2018-08-16 | XMS | Clinical Summary ---
Demographics + + + | Address | [address] | | | [place] [address] | + + + | Home Phone | | + + + | Preferred Language | Unknown | + + + | Marital Status | | + + + | Nondenominational Affiliation | 1028 | + + + | Race | Unknown | + + + | Ethnic Group | Unknown | + + + Author + + + | Author | [facility] | + + + | Organization | [facility] | + + + | Address | Unknown | + + + | Phone | Unavailable | + + + Support + + + + + | Name | Relationship | Address | Phone | + + + + + | Joseph Castle | ECON | [address] | | | | | [place] | | | | | [address] | | + + + + + Care Team Providers + +------+ + | Care Daytime Caregiver Name | Role | Phone | + [...] | | | | Activ | | VJ-Mucxhwwdet-Zxlvtq | mouth daily. | | | | [...] +------+-------+ + | MEDICARE | MEDICA | [id number] | | | [address] | | | RE | | | | [place] [phone] | | | IP-OP | | | | | + +--------+ +------+-------+ + | [facility] | [place] | [id number] | | | | | | | [...] Self | [birth year] | Home: | [address] | | | al/Fam | | 1935 | [phone] | [place] | | | connie | | | [phone] | [phone] | + +--------+ +--------+ + +
--- OUTSIDE RECORDS SUMMARY | ~2018-08-16 | XMS | Clinical Summary ---
Demographics + + + | Address | [address] | | | [place] [address] | + + + | Home Phone | | + + + | Preferred Language | Unknown | + + + | Marital Status | | + + + | Amish Affiliation | Unknown | + + + | Race | Unknown | + + + | Ethnic Group | Unknown | + + + Author + + + | Author | [facility] | | | and [place] | + + + | Organization | [facility] | | | and [place] | + + + | Address | Unknown | + + + | Phone | Unavailable | + + + Support + + + + + | Name | Relationship | Address | Phone | + + + + + | Brie Cabrera | ECON | [address] | | | | | [place], [place] | | | | | [address] | | + + + + + | Chloe Malik | ECON | [place], [place] | | | | | [address] | | + + + + + | Ivett Ingram | ECON | Unknown | | + + + + + | Mj Cabrera | ECON | Unknown | | + + + + + Care Team Providers + +------+ + | Care Student Support Counselor Name | Role | Phone | + [...] | | | | e | | ([facility] | | | | | | [...] +--------+ +---------+--------+ | MEDICARE | MEDICA | [id number] | | [phone] | | Medica | | | RE | | [phone] | [phone] | | re | | | PART A | | esent | | | | | | AND B | | | | | | + +--------+ +--------+ +---------+--------+ | AARP | AARP | [id number] | | [phone] | | Indemn | [...] [place] | | | 8 (Home) | [phone] | + +--------+ +--------+ + + Advance Directives Patient has advance care planning documents, and code status on file. For more information, please contact:[facility] and [place] [address] + + + + + | Code Status | Date | Date | Comments | | | Activated | Inactivated | | + + + + + | Full Code | 08/31/2017 | 09/09/2017 | | | | 14:55 | 16:51 | | + + + + +
[~2018-08-16 03:34] MED LIST changes: -ADULT ASPIRIN R81 MG PO; +ASPIRIN EC325 MG PO; +ATORVASTATIN CA10 MG PO; +DULOXETINE HCL30 MG PO; +ESCITALOPRAM OX10 MG PO; +LOSARTAN POTASS25 MG PO; +MYRBETRIQ25 MG PO; +NEURONTIN300 MG PO; +NORVASC5 MG PO; +OMEPRAZOLE40 MG PO
[2018-08-16] MEDS ORDERED: LEXAPRO10 MG PO (04:17)
[2018-08-16] MEDS ORDERED: LIPITOR10 MG PO (04:19)
[2018-08-16] MEDS ORDERED: GABAPENTIN300 MG PO (04:21)
--- NOTE | 2018-08-17 13:56 | EKG ---
[facility] [address] [facility] [place] [address] Signed Sinus rhythm with occasional premature ventricular complexes and premature atrial complexes Right bundle branch block Abnormal ECG When compared with ECG of 04-MAR-2018 15:30, premature ventricular complexes are now present premature atrial complexes are now present Confirmed by ELVIRA TUCKER MD ([id number]) on 08/17/2018 1:56:21 PM Electronically Signed By: ELVIRA TUCKER MD 08/17/18 1356 PATIENT NAME: CORRINEJOSEPH HAN Electrocardiogram DATE OF : 31 PHYSICIAN: ELVIRA TUCKER MD REPORT #: [id number] REPORT IS CONFIDENTIAL AND NOT TO BE RELEASED WITHOUT AUTHORIZATION
[2018-08-20] MEDS ORDERED: PROTONIX40 MG PO (11:57)
[2018-08-20] MEDS ORDERED: SEROQUEL25 MG PO (11:57)
[2018-08-20] MEDS ORDERED: ACETAMINOPHEN650 MG PR (11:59)
[2018-08-20] MEDS ORDERED: MILK OF MA400 MG/5 M PO (12:00)
[2018-08-20] MEDS ORDERED: DULCOLAX10 MG PR (12:01)
[2018-08-20] MEDS ORDERED: FLEET ENEMA133 ML PR (12:01)
== END 2018-08-20 14:05 | DRG 64 ==
LOC: ED 03:34 → MS 03:35
PROVIDERS: ADMIT Internal Medicine
DX: I63.9 Cerebral infarction, unspecified (principal); G93.41 Metabolic encephalopathy; R47.1 Dysarthria and anarthria; R29.810 Facial weakness; G83.21 Monoplegia of upper limb affecting right dominant side; I10 Essential (primary) hypertension; N40.0 Benign prostatic hyperplasia without lower urinary tract symptoms; E03.9 Hypothyroidism, unspecified; E78.5 Hyperlipidemia, unspecified; R29.716 NIHSS score 16; K21.9 Gastro-esophageal reflux disease without esophagitis; G62.9 Polyneuropathy, unspecified; F39 Unspecified mood [affective] disorder; I69.320 Aphasia following cerebral infarction; Z88.5 Allergy status to narcotic agent; Z88.8 Allergy status to other drugs, medicaments and biological substances; Z87.891 Personal history of nicotine dependence; Z79.82 Long term (current) use of aspirin; Z79.899 Other long term (current) drug therapy
CPT/HCPCS: 36415; 36600; 70450; 70496; 70498; 71045; 80048; 80053; 81001; 82803; 83735; 85025; 85610; 85730; 92526; 92610; 93005; 93010; 97112; 97116; 97162; 97167; 97530; 99285-25; J1630; J1650; J2060; J3475; J7120; Q9967

== ENCOUNTER 2019-02-03 14:57 | Emergency (ER) | payer MEDICARE ==
[~2019-02-03] VITALS: Ht 177.8 cm; Wt 79.5 kg
[~2019-02-03 14:57] MED LIST changes: +ACETAMINOPHEN650 MG PR; +DULCOLAX10 MG PR; +FLEET ENEMA133 ML PR; +GABAPENTIN300 MG PO; +LEXAPRO10 MG PO; +LIPITOR10 MG PO; +MILK OF MA400 MG/5 M PO; +PROTONIX40 MG PO; +SEROQUEL25 MG PO
--- NOTE | 2019-02-04 12:34 | EKG ---
[facility] [address] [facility] [place] [address] Signed Normal sinus rhythm with sinus arrhythmia Right bundle branch block Possible Inferior infarct , age undetermined Abnormal ECG When compared with ECG of 16-AUG-2018 03:52, premature ventricular complexes are no longer present premature atrial complexes are no longer present Confirmed by ELVIRA TUCKER MD ([id number]) on 02/04/2019 12:34:35 PM Electronically Signed By: ELVIRA TUCKER MD 02/04/19 1234 PATIENT NAME: CORRINEJOSEPH HAN Electrocardiogram DATE OF : 31 PHYSICIAN: ELVIRA TUCKER MD REPORT #: [id number] REPORT IS CONFIDENTIAL AND NOT TO BE RELEASED WITHOUT AUTHORIZATION
[2019-02-05] MEDS ORDERED: FLOMAX0.4 MG PO (07:55)
[2019-02-05] MEDS ORDERED: NEURONTIN300 MG PO (07:55)
[2019-02-05] MEDS ORDERED: PROTONIX40 MG PO (07:55)
[2019-02-05] MEDS ORDERED: LIPITOR10 MG GT (07:55)
[2019-02-05] MEDS ORDERED: MELATIN3 MG PO (07:55)
[2019-02-05] MEDS ORDERED: ASPIRIN325 MG PO (07:55)
[2019-02-05] MEDS ORDERED: LEVOTHYROXINE175 MCG PO (07:55)
[2019-02-05] MEDS ORDERED: BUPROPION HCL100 M1 PO (07:55)
[2019-02-05] MEDS ORDERED: SEROQUEL100 MG PO (08:12)
[2019-02-05] MEDS ORDERED: SEROQUEL50 MG PO (08:12)
[2019-02-05] MEDS ORDERED: GEODON40 MG PO (08:12)
== END 2019-02-05 15:04 | disposition home or self-care (01) ==
LOC: ED 14:57
DX: F03.91 Unspecified dementia, unspecified severity, with behavioral disturbance (principal); R45.1 Restlessness and agitation; I10 Essential (primary) hypertension; E03.9 Hypothyroidism, unspecified; Z88.5 Allergy status to narcotic agent; Z88.6 Allergy status to analgesic agent; Z88.8 Allergy status to other drugs, medicaments and biological substances; Z79.82 Long term (current) use of aspirin; Z79.899 Other long term (current) drug therapy
CPT/HCPCS: 80053; 81001; 84484; 85025; 93005; 93010; 99285-25; J2060

== ENCOUNTER 2019-11-10 22:41 | Inpatient (IN) | payer MEDICARE, OTHER ==
[~2019-11-10] VITALS: Ht 177.8 cm; Wt 55.3 kg
--- OUTSIDE RECORDS SUMMARY | ~2019-11-10 | XMS | Encounter Summary ---
Demographics + + + | Address | [address] | | | [place] [address] | + + + | Home Phone | | + + + | Preferred Language | Unknown | + + + | Marital Status | | + + + | Restoration Affiliation | 1028 | + + + | Race | Unknown | + + + | Ethnic Group | Unknown | + + + Author + + + | Author | [facility] | | | and [place] | + + + | Organization | [facility] | | | and [place] | + + + | Address | Unknown | + + + | Phone | Unavailable | + + + Support + + + + + | Name | Relationship | Address | Phone | + + + + + | Brie Cabrera | ECON | [address] | | | | | [place], [place] | | | | | [address] | | + + + + + | Chloe Malik | ECON | [place], [place] | | | | | [address] | | + + + + + | Ivett Ingram | ECON | Unknown | | + + + + + | Mj Cabrera | ECON | Unknown | | + + + + + | Jessa Cabrera | ECON | [address] | | | | | [place], [place] | | | | | [address] | | + + + + + Care Team Providers + +------+ + | Care Supervisor [employer] Name | Role | Phone | + +------+ + PCP | Unavailable | + +------+ + Encounter Details +--------+ + + + + | Date | Type | Department | Care Team | Description | +--------+ + + + + | 11/28/ | [facility] | [facility] | Monty Caputo, | | | 2010 | Encounter | MED CTR XRAY [address] | MD [address] | | | | | [place] | [place] | | | | | [place] [address] | [address] | | | | | [phone] | | | +--------+ + + + + Social History + +-------+ +--------+------+ | Tobacco Use | Types | Packs/Day | Years | Date | | | | | Used | | + +-------+ +--------+------+ | Never Assessed | | | | | + +-------+ +--------+------+ + + + | Sex Assigned at | Date Recorded | | | | + + + | Not on file | | + + + documented as of this encounter Plan of Treatment Not on filedocumented as of this encounter Procedures + +--------+ + + + | Procedure Name | Priori | Date/Time | Associated Diagnosis | Comments | | | ty | | | | + +--------+ + + + | FL VIDEO SWALLOW W | | 11/28/2010 | | Results for this | | SPEECH | | 9:27 AM | | procedure are in the | | | | PDT | | results section. | + +--------+ + + + documented in this encounter Results FL Video Swallow w Speech (11/28/2010 9:27 AM PDT) + + | Specimen | + + | | + + + + + | Narrative | Performed At | + + + | [facility] | [facility] | | [address] [facility] | [facility] | | MODIFIED BARIUM SWALLOW | DIAG IMG | | 11/28/2010 CLINICAL HISTORY: COUGH, POSSIBLE ASPIRATION. | | | COMPARISON: None. TECHNIQUE: In the upright position, the | | | patient was challenged with various barium laden foods. Flu | | | oroscopy was utilized to evaluate swallow function. The exam was | | | directed by the Speech Therapist. FINDINGS: The patient | | | was challenged with thin and nectar thick liquid as well as puree, | | | chopped and regular food. There was mild impairment with bolus | | | formation and clearing of retained material from the vallecula and | | | pharyngeal buck. No laryngeal penetration or aspiration was | | | observed. IMPRESSION: 1. MILD SWALLOWING IMPAIRMENT WITH | | | RISK FOR ASPIRATION. PLEASE SEE THE SPEECH THERAPY REPORT FOR FU | | | RTHER DETAILS. Dictated Date/Time: 11/28/2010 15:47 | | | Transcribed Date/Time: 11/28/2010 16:45 Lumber Chain Offbearer: | | | <Electronically Signed by Portillo Mckeon MD> 11/28/10 2239 | | + + + + + | Procedure Note | + + | [place], Rad Conversion - 06/17/2013 3:25 PM [facility] | | Diagnostic Imaging Department [address] [place] [address] | | MODIFIED BARIUM SWALLOW 11/28/2010 CLINICAL HISTORY: | | COUGH, POSSIBLE ASPIRATION. COMPARISON: None. TECHNIQUE: In the upright position, | | the patient was challenged with various barium laden foods. Fluoroscopy was utilized to | | evaluate swallow function. The exam was directed by the Speech Therapist. FINDINGS: | | The patient was challenged with thin and nectar thick liquid as well as puree, chopped | | and regular food. There was mild impairment with bolus formation and clearing of | | retained material from the vallecula and pharyngeal buck. No laryngeal penetration or | | aspiration was observed. IMPRESSION: 1. MILD SWALLOWING IMPAIRMENT WITH RISK FOR | | ASPIRATION. PLEASE SEE THE SPEECH THERAPY REPORT FOR FURTHER DETAILS. Dictated | | Date/Time: 11/28/2010 15:47Transcribed Date/Time: 11/28/2010 16:45Transcriptionist: | | <Electronically Signed by Portillo Mckeon MD> 11/28/10 0749 | |oroscopy was utilized to evaluate swallow function. The exam was directed by the Speech Th nicole. | | | | | |FINDINGS: The patient was challenged with thin and nectar thick liquid as well as puree, c hopped and | | regular food. There was mild impairment with bolus formation and clearing of retained mat erial from | | the vallecula and pharyngeal buck. No laryngeal penetration or aspiration was observed. | | | |IMPRESSION: | |1. MILD SWALLOWING IMPAIRMENT WITH RISK FOR ASPIRATION. PLEASE SEE THE SPEECH THERAPY REP ORT FOR FU | |RTHER DETAILS. | | | |Dictated Date/Time: 11/28/2010 15:47 | |Transcribed Date/Time: 11/28/2010 16:45 | |Lumber Chain Offbearer: | |<Electronically Signed by Portillo Mckeon MD> 11/28/10 2239 | + + + +---------+ + + | Performing | Address | City/State/Zipcode | Phone Number | | Organization | | | | + +---------+ + + | [facility] | | | | | [facility] | | | | + +---------+ + + documented in this encounter Visit Diagnoses Not on filedocumented in this encounter"
--- OUTSIDE RECORDS SUMMARY | ~2019-11-10 | XMS | Encounter Summary ---
Demographics + + + | Address | [address] | | | [place] [address] | + + + | Home Phone | | + + + | Preferred Language | Unknown | + + + | Marital Status | | + + + | Catholic Affiliation | 1028 | + + + | Race | Unknown | + + + | Ethnic Group | Unknown | + + + Author + + + | Author | [facility] | | | and [place] | + + + | Organization | [facility] | | | and [...] [place], [place] | | | | | [address] | | + + + + + | Chloe Malik | ECON | [place], [place] | | | | | [address] | | + + + + + | Ivett Ingram | ECON | Unknown | | + + + + + | Mj Cabrera | ECON | Unknown | | + + + + + | Jessa Cabrera | ECON | [address] | | | | | [place], [place] | | | | | [address] | | + + + + + Care Team Providers + +------+ + | Care Car Electronics Installer Name | Role | Phone | + +------+ + | Josr Henriquez | PCP | | | MD | | | + +------+ + Reason for Referral Evaluate & Treat (Routine) +--------+ + + + + + | Status | Reason | Specialty | Diagnoses / | Referred By | Referred To | | | | | Procedures | Contact | Contact | +--------+ + + + + + | Closed | Specialty | Physical | Diagnoses | Sorin | | | | Services | Therapy | | Juan | | | | Required | | Cerebrovascu | MD Dary | | | | | | lar accident | [address] | | | | | | (CVA), | [place] | | | | | | unspecified | [place] | | | | | | mechanism | [phone] | | | | | | ([facility]) | Phone: | | | | | | | [phone] | | | | | | | Fax: | | | | | | | [phone] | | +--------+ + + + + + Encounter Details +--------+ + + + + | Date | Type | Department | Care Team | Description | +--------+ + + + + | 08/31/ | Hospital | 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 | +--------+ + + + + Social History + +-------+ +--------+ + | Tobacco Use | Types | Packs/Day | Years | Date | | | | | Used | | + +-------+ +--------+ + | Former Smoker | | | | Quit: 05/11/2002 | + +-------+ +--------+ + + + +---------+ + | Alcohol Use | Drinks/Week | oz/Week | Comments | + + +---------+ + | Yes | | | Rare | + + +---------+ + + + + | Sex Assigned at | Date Recorded | | | | + + + | Not on file | | + + + documented as of this encounter Last Filed Vital Signs + + + + + | Vital Sign | Reading | Time Taken | Comments | + + + + + | Blood Pressure | 124/78 | 09/09/2017 8:01 AM | | | | | PDT | | + + + + + | Pulse | 80 | 09/09/2017 12:05 PM | | | | | PDT | | + + + + + | Temperature | 36.2 C (97.2 F) | 09/09/2017 8:01 AM | | | | | PDT | | + + + + + | Respiratory Rate | 18 | 09/09/2017 12:05 PM | | | | | PDT | | + + + + + | Oxygen Saturation | 95% | 09/09/2017 12:05 PM | | | | | PDT | | + + + + + | Inhaled Oxygen | - | - | | | Concentration | | | | + + + + + | Weight | 79.1 kg (174 lb 6.1 | 09/07/2017 4:23 PM | | | | oz) | PDT | | + + + + + | Height | 177.8 cm (5' 10") | 08/31/2017 2:00 PM | | | | | PDT | | + + + + + | Body Mass Index | 25.02 | 08/31/2017 2:00 PM | | | | | PDT | | + + + + + documented in this encounter Discharge Summaries Juan Rowell MD - 09/16/2017 4:42 PM PDT REHABILITATION DISCHARGE SUMMARY Patient Identification: Dennis Cabrera : 1935 Admit Date: 08/31/2017 Attending Provider: Juan Rowell MD Primary Care Physician: Josr Henriquez MD Impairment Group: Stroke 01.9 Other stroke Etiologic Diagnosis: CVA Discharge date and time: 09/09/17 Discharge Physician: Juan Rowell MD Social History: per chart review and confirmed with pt Social History Social History Marital status: Spouse name: N/A Number of children: 3 Years of education: N/A Occupational History [employer] Retired retired Social History Main Topics Smoking status: Former Smoker Quit date: 05/11/2002 Smokeless tobacco: Not on file Alcohol use Yes Comment: Rare Drug use: No Sexual activity: Yes Other Topics Concern Not on file Social History Narrative No narrative on file Consults: Rehabilitation nursing Physical Therapy Occupational Therapy Speech Therapy Social Work Significant Diagnostic Studies: No results found for this or any previous visit (from the past 360 hour(s)). Treatments: intensive inpatient rehabilitation ADMISSION HPI: Patient was admitted to [facility] via the emergency room on August 21. There wa s a 2 day history of altered sensorium. It started following an episode of nausea and vomi ting after a meal .(I have been able to speak with his . She reports they were on a tri p and she noted that he seemed more confused. He was unsteady with his mobility and she had to help him get up and about. He also had some bladder incontinence.). However the alter ed SENSORIUM persisted and he had not been eating or drinking well. Unable to track conversations and was having difficulty recognizing family members. Also some difficulty walking and some mobility problems. Therefore on August 21 upon their return to [place] she took him to [facility] h jean was admitted On examination and difficulty with repetition. He was able to follow some simple one-step commands but could not understand or follow more complicated commands and m ore complex directions. He was able to answer some simple yes or no questions Strength testing it was difficult due to the cognitive issues though some weakness was note d. Brain CT scan was negative for bleed or mass effect. He did show mild atrophy and microva scular angiopathy with evidence of scattered lacunar infarctions Brain MRI was not able to be performed because he had an implanted stimulator. he was stabilized acutely and cleared for full inpatient rehab. August 25 he was transferred/discharged to their swing bed while awaiting a bed on inpatient rehab. PMHx: (per chart review confirmed with pt and his History was negative for previous stroke seizure or TIA. Hypertension but negative for angina or HI or dysrhythmia. Past Medical History: Diagnosis Date Chronic low back pain 09/18/2014 DDD (degenerative disc disease), lumbar 08/02/2014 Depression Hypertension Lumbar radiculopathy 08/02/2014 Neuropathy feet S/P lumbar fusion 08/02/2014 Sacroiliitis, not elsewhere classified (HCC) 09/18/2014 Thyroid disease PSx: Low lumbar spine injury with multiple, reportedly 11 previous lumbar spine surgeries. October 19, 2016 he had placement of a lumbar spinal epidural stimulator. His states jett t it was turned off when he was admitted to [facility]. 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 History of bilateral reverse total shoulder replacements, left total knee replacement, bila teral total hip replacements. He also has peripheral neuropathy with numbness and painful feet. Meds During Hospitalization No current facility-administered medications for this encounter. Current Outpatient Prescriptions Medication Sig Dispense Refill albuterol-ipratropium (DUONEB) 2.5-0.5 mg/3 mL SOLN Take 3 mLs by nebulization 3 times daily. 360 mL 1 aspirin (ASPIRIN LOW DOSE) 81 MG EC tablet Take 81 mg by mouth Daily. atorvaSTATin (LIPITOR) 10 mg tablet Take 1 tablet by mouth nightly. 30 tablet 1 benzonatate (TESSALON) 100 mg capsule Take 1 capsule by mouth 3 times daily. 90 capsule 1 docusate sodium (COLACE) 100 MG capsule Take 100 mg by mouth 2 times daily. 30 capsule 1 donepezil (ARICEPT) 10 MG tablet Take 1 tablet by mouth nightly. 30 tablet 1 gabapentin (NEURONTIN) 300 mg capsule Take 2 capsules by mouth nightly. 30 capsule 1 guaiFENesin (ROBITUSSIN) 100 mg/5 mL SOLN Take 10 mLs by mouth every 4 hours as needed for Cough. 90 mL 1 levothyroxine (SYNTHROID) 175 MCG tablet Take 1 tablet by mouth Daily. 30 tablet 1 losartan (COZAAR) 25 mg tablet Take 1 tablet by mouth Daily. 30 tablet 1 Multiple Vitamins-Minerals ( MACULAR HEALTH PO) Take by mouth. senna (SENOKOT) 8.6 mg tablet Take by mouth Twice daily as needed for Constipation. 6 0 tablet 1 tamsulosin (FLOMAX) 0.4 mg CAPS Take 1 capsule by mouth daily (after dinner). 30 capsul e 1 Allergies: Allergies Allergen Reactions Cyclobenzaprine Not Noted Fentanyl Not Noted Fluoxetine Not Noted Mirtazapine Not Noted Morphine Sulfate Not Noted Oxycodone Not Noted Intolerance No active intolerances/contraindications Family History: Family History Problem Relation Age of Onset Alcohol abuse Mother Alcohol abuse Father Heart disease Father High blood pressure Father Stroke Father Functional Status: Current: FIM BladderScore: 7 FIM Bowel Score: 6 FIM Bed/Chair/Wheelchair Score: 6 FIM Toilet Transfer Score: 7 FIM Tub/Shower Transfer Score: 6 FIM Walk Score: 6 FIM Distance Walked(feet): 500 feet FIM Wheelchair Score: FIM Stairs Score :6 FIM Eating Score: 7 FIM Grooming Score: 7 FIM Bathing Score: 6 FIM Dressing Upper Body Score: 7 FIM Dressing Lower Body Score: 7 FIM Toileting Score: 7 DISCHARGE PHYSICAL EXAMINATION: VS: BP 124/78 | Pulse 80 | Temp 36.2 C (97.2 F) (Oral) | Resp 18 | Ht 1.778 m (5' 1 0") | Wt 79.1 kg (174 lb 6.1 oz) | SpO2 95% | BMI 25.02 kg/m HEENT: Eyes clear. Oral mucosa moist. LYMPHATICS: No significant adenopathy noted in neck, axilla or groin. RESPIRATORY: Breathing comfortably, unlabored respirations. CARDIOVASCULAR: Regular rate and rhythm without audible murmur or rub noted. No edema. Pal pable peripheral pulses. GASTROINTESTINAL: Abdomen soft, non-tender, with active bowel sounds present. MUSCULOSKELETAL: Extremities symmetric with stable range of motion. NEUROLOGIC: Stable. LABORATORY: @[id number]@ Hospital Course: REASON FOR ADMISSION: Comprehensive medical inpatient rehabilitation program to treat problems with self-care and functional mobility secondary to and multiple comorbidities. Please see History & Physical for full details of history and status at time of admission. HOSPITAL COURSE: The patient was admitted to the inpatient rehabilitation service and participated in full p rogram. Vital Signs, including orthostatic blood pressure and pulse, and changes with exercise acti vity were closely monitored and discussed. Respiratory Therapy protocol was implemented. Bowel and bladder management program was begun. Appropriate nutrition was provided. Follow-up laboratory data was obtained regarding metabolic and hematologic issues. Pain management was effective with prescribed medications. Staff reinforced safety measures and awareness. The patient was also seen and followed closely for medical comorbidities. Self care and function mobility are improved. Appropriate patient education and fmnily training have been provided. The patient will be discharged today with referral to outpatient services. Please see final Rehabilitation Team Conference Note for Functional Status of Discharge. Refer to Case Management Discharge Instructions regarding coordination of future rehabilita tion therapies and discharge equipment needs, as well as Medical follow-up appointments. Impression : 1. 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 Aphasia 3. Dyspraxia, ataxia, balance disorder and associated mobility problems 4. Rule out neurogenic bowel and bladder Associated comorbidities : 5. 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 Acute bronchitis 7. Hypertension 8. Hypothyroidism 9. KOKI, superimposed on chronic renal insufficiency stage III 10. Acute adjustment disorder, with probable reactive depression 11. Osteoarthritis , status post multiple total joint replacements as discussed above 12. Acute increased debility secondary to the above DISCHARGE MEDICATIONS: Discharge Medications New Medications Details albuterol-ipratropium 2.5-0.5 mg/3 mL Soln Take 3 mLs by nebulization 3 times daily. aka: DUONEB atorvaSTATin 10 mg tablet Take 1 tablet by mouth nightly. aka: LIPITOR benzonatate 100 mg capsule Take 1 capsule by mouth 3 times daily. aka: TESSALON docusate sodium 100 MG capsule Take 100 mg by mouth 2 times daily. aka: COLACE gabapentin 300 mg capsule Take 2 capsules by mouth nightly. aka: NEURONTIN guaiFENesin 100 mg/5 mL Soln Take 10 mLs by mouth every 4 hours as needed for Cough. aka: ROBITUSSIN losartan 25 mg tablet Take 1 tablet by mouth Daily. aka: COZAAR SENOKOT 8.6 mg tablet Generic drug: senna Take by mouth Twice daily as needed for Constipation. tamsulosin 0.4 mg Caps Take 1 capsule by mouth daily (after dinner). aka: FLOMAX Changed Medications Details donepezil 10 MG tablet Take 1 tablet by mouth nightly. What changed: medication strength how much to take aka: ARICEPT levothyroxine 175 MCG tablet Take 1 tablet by mouth Daily. What changed: medication strength how much to take aka: SYNTHROID [facility] MACULAR HEALTH PO Take by mouth. What changed: Another medication with the same name was removed. Continue taking this medi cation, and follow the directions you see here. Unchanged Medications Details ASPIRIN LOW DOSE 81 MG EC tablet Generic drug: aspirin Take 81 mg by mouth Daily. Discontinued Medications ALEVE 220 MG Caps Generic drug: Naproxen Sodium cabergoline 0.5 mg tablet aka: DOSTINEX DEPO-TESTOSTERONE 200 mg/mL injection Generic drug: testosterone cypionate losartan-hydrochlorothiazide 100-25 MG per tablet aka: HYZAAR TOVIAZ 8 MG Tb24 ER tablet Generic drug: fesoterodine fumarate traZODone 50 mg tablet aka: ADILSON Current Discharge Medication List START taking these medications Medication Dose Last Dose Taken; albuterol-ipratropium (DUONEB) 2.5-0.5 mg/3 mL SOLN 3 mLs [ ] Take 3 mLs by nebulization 3 times daily. Qty: 360 mL Refills: 1 Start date: 09/09/2017 atorvaSTATin (LIPITOR) 10 mg tablet 10 mg [ ] Take 1 tablet by mouth nightly. Qty: 30 tablet Refills: 1 Start date: 09/09/2017 benzonatate (TESSALON) 100 mg capsule 100 mg [ ] Take 1 capsule by mouth 3 times daily. Qty: 90 capsule Refills: 1 Start date: 09/09/2017 docusate sodium (COLACE) 100 MG capsule 100 mg [ ] Take 100 mg by mouth 2 times daily. Qty: 30 capsule Refills: 1 Start date: 09/09/2017 gabapentin (NEURONTIN) 300 mg capsule 600 mg [ ] Take 2 capsules by mouth nightly. Qty: 30 capsule Refills: 1 Start date: 09/09/2017 guaiFENesin (ROBITUSSIN) 100 mg/5 mL SOLN 200 mg [ ] Take 10 mLs by mouth every 4 hours as needed for Cough. Qty: 90 mL Refills: 1 Start date: 09/09/2017 losartan (COZAAR) 25 mg tablet 25 mg [ ] Take 1 tablet by mouth Daily. Qty: 30 tablet Refills: 1 Start date: 09/10/2017 senna (SENOKOT) 8.6 mg tablet [ ] Take by mouth Twice daily as needed for Constipation. Qty: 60 tablet Refills: 1 Start date: 09/09/2017 tamsulosin (FLOMAX) 0.4 mg CAPS 0.4 mg [ ] Take 1 capsule by mouth daily (after dinner). Qty: 30 capsule Refills: 1 Start date: 09/09/2017 CONTINUE these medications which have CHANGED or have been refilled with a NEW PRESCRIPTIO N Medication Dose Last Dose Taken; donepezil (ARICEPT) 10 MG tablet 10 mg [ ] Take 1 tablet by mouth nightly. Qty: 30 tablet Refills: 1 Start date: 09/09/2017 levothyroxine (SYNTHROID) 175 MCG tablet 175 mcg [ ] Take 1 tablet by mouth Daily. Qty: 30 tablet Refills: 1 Start date: 09/10/2017 CONTINUE these medications which have NOT CHANGED Medication Dose Last Dose Taken; aspirin (ASPIRIN LOW DOSE) 81 MG EC tablet 81 mg [ ] Take 81 mg by mouth Daily. Multiple Vitamins-Minerals ([facility] MACULAR HEALTH PO) [ ] Take by mouth. DISPOSITION: Home with family FOLLOW UP: -PCP: 1-2 weeks after d/c from hospital: Josr Henriquez MD DISCHARGE INSTRUCTIONS: Patient has been taught home program by the rehab departments Also is referred to outpatient PT, OT, and speech therapy I spent 33 minutes on date of discharge with unit/floor time including face to face with th e patient, with over 50% spent in counseling and/or coordination of care regarding discharge meds, and addressing home program, f/u appointments, setting up d/c therapies, arranging fo r equipment. Signed: Juan Rowell MD 09/16/2017 16:42 CC: Josr Henriquez MD Portions of this chart may have been created with Kinetic voice recognition software. Occasi onal wrong-word or sound-alike substitutions may have occurred due to the inherent mejia itations of voice recognition software. Please read the chart carefully and recognize, using context, where these substitutions have occurred documented in this encounter Medications at Time of Discharge + + + +---------+ + + | Medication | Sig | Dispensed | Refills | Start | End Date | | | | | | Date | | + + + +---------+ + + | | Take 3 mLs by | 360 mL | 1 | 09/10/19 | | | albuterol-ipratropiu | nebulization 3 times | | | 18 | | | m (DUONEB) 2.5-0.5 | daily. | | | | | | mg/3 mL SOLN | | | | | | + + + +---------+ + + | aspirin (ASPIRIN | Take 81 mg by mouth | | 0 | 01/22/20 | | | LOW DOSE) 81 MG EC | Daily. | | | 12 | | | tablet | | | | | | + + + +---------+ + + | atorvaSTATin | Take 1 tablet by | 30 | 1 | 09/10/19 | | | (LIPITOR) 10 mg | mouth nightly. | tablet | | 18 | | | tablet | | | | | | + + + +---------+ + + | benzonatate | Take 1 capsule by | 90 | 1 | 09/10/19 | | | (TESSALON) 100 mg | mouth 3 times daily. | capsule | | 18 | | | capsule | | | | | | + + + +---------+ + + | docusate sodium | Take 100 mg by mouth | 30 | 1 | 09/10/19 | | | (COLACE) 100 MG | 2 times daily. | capsule | | 18 | | | capsule | | | | | | + + + +---------+ + + | donepezil | Take 1 tablet by | 30 | 1 | 09/10/19 | | | (ARICEPT) 10 MG | mouth nightly. | tablet | | 18 | | | tablet | | | | | | + + + +---------+ + + | gabapentin | Take 2 capsules by | 30 | 1 | 09/10/19 | | | (NEURONTIN) 300 mg | mouth nightly. | capsule | | 18 | | | capsule | | | | | | + + + +---------+ + + | guaiFENesin | Take 10 mLs by mouth | 90 mL | 1 | 09/10/19 | | | (ROBITUSSIN) 100 | every 4 hours as | | | 18 | | | mg/5 mL SOLN | needed for Cough. | | | | | + + + +---------+ + + | levothyroxine | Take 1 tablet by | 30 | 1 | 09/11/19 | | | (SYNTHROID) 175 MCG | mouth Daily. | tablet | | 18 | | | tablet | | | | | | + + + +---------+ + + | losartan (COZAAR) | Take 1 tablet by | 30 | 1 | 09/11/19 | | | 25 mg tablet | mouth Daily. | tablet | | 18 | | + + + +---------+ + + | Multiple | Take by mouth. | | 0 | | | | Vitamins-Minerals | | | | | | | ([facility] | | | | | | | PO) | | | | | | + + + +---------+ + + | senna (SENOKOT) | Take by mouth Twice | 60 | 1 | 09/10/19 | | | 8.6 mg tablet | daily as needed | tablet | | 18 | | | | for Constipation. | | | | | + + + +---------+ + + | tamsulosin | Take 1 capsule by | 30 | 1 | 09/10/19 | | | (FLOMAX) 0.4 mg CAPS | mouth daily (after | capsule | | 18 | | | | dinner). | | | | | + + + +---------+ + + documented as of this encounter Progress Notes Juan Rowell MD - 09/08/2017 2:43 PM PDT [id number] Rehabilitation Medicine Daily Progress Note Date: 09/08/17 ID/CC: Reason for encounter : Physician follow-up to address the medical rehabilitation needs, issues, and problems . Interval history: Following his blood pressure, pulse rate, and pulse ox with the therapy treatments and also at night. They're all holding within the therapeutic range. Chief problem : Weakness and difficulty with self-care/ADLs and functional mobility States he slept well last night. Looking forward to upcoming discharge. Problem List Patient Active Problem List Diagnosis COUGH, CHRONIC SHORTNESS OF BREATH COPD DISORDERS OF DIAPHRAGM DYSPNEA ON EXERTION ASTHMA, EXTRINSIC PULMONARY FUNCTION TESTS, ABNORMAL G E R D SLEEP APNEA Lumbar radiculopathy DDD (degenerative disc disease), lumbar S/P lumbar fusion Bilateral sacroiliitis Chronic low back pain CVA (cerebrovascular accident) Aphasia Bronchitis Hypertension Current Meds: Current Facility-Administered Medications: acetaminophen (TYLENOL) tablet 650 mg, 650 mg, Oral, Q4H PRN, Juan Rowell MD albuterol 2.5 mg/3 mL nebulizer solution 2.5 mg, 2.5 mg, Nebulization, 4x Daily, Juan Rowell MD, 2.5 mg at 09/08/17 1135 aspirin EC tablet 81 mg, 81 mg, Oral, Daily, Juan Rowell MD, 81 mg at 09/08/17 0847 atorvaSTATin (LIPITOR) tablet 10 mg, 10 mg, Oral, Nightly, Juan Rowell MD, 10 m g at 09/07/17 2018 bacitracin topical ointment, , Topical, BID, Juan Rowell MD, 1 Application at 0 09/08/17 0847 benzonatate (TESSALON) capsule 100 mg, 100 mg, Oral, TID, Juan Rowell MD, 100 m g at 09/08/17 0846 calcium carbonate (TUMS) chewable tablet 1,000 mg, 1,000 mg, Oral, Q8H PRN, Juan Rowell MD docusate sodium (COLACE) capsule 100 mg, 100 mg, Oral, BID, Juan Rowell MD, 100 mg at 09/08/17 0846 donepezil (ARICEPT) tablet 10 mg, 10 mg, Oral, Nightly, Juan Rowell MD, 10 mg a t 09/07/172017 enoxaparin (LOVENOX) 40 mg/0.4 mL injection 40 mg, 40 mg, Subcutaneous, Daily, Juan Rowell MD, 40 mg at 09/08/17 0847 gabapentin (NEURONTIN) capsule 600 mg, 600 mg, Oral, Nightly, Juan Rowell MD guaiFENesin (ROBITUSSIN) 100 mg/5 mL liquid 200 mg, 200 mg, Oral, Q4H PRN, Juan Rowell MD, 200 mg at 09/06/172035 levothyroxine (SYNTHROID) tablet 175 mcg, 175 mcg, Oral, Daily, Juan Rowell MD, 175 mcg at 09/08/17 08 losartan (COZAAR) tablet 50 mg, 50 mg, Oral, BID (not ATC), Juan Rowell MD, 50 mg at 09/06/17822 ondansetron (ZOFRAN ODT) disintegrating tablet 4 mg, 4 mg, Oral, Q6H PRN, Juan Rowell MD senna (SENOKOT) tablet 8.6 mg, 8.6 mg, Oral, BID PRN, Juan Rowell MD, 8.6 mg at 08/31/172220 tamsulosin (FLOMAX) capsule 0.4 mg, 0.4 mg, Oral, Nightly, Juan Rowell MD, 0.4 mg at 09/07/172018 zolpidem (AMBIEN) tablet 5 mg, 5 mg, Oral, Nightly PRN, Juan Rowell MD, 5 mg at 09/06/172036 Allergies: Allergies Allergen Reactions Cyclobenzaprine Not Noted Fentanyl Not Noted Fluoxetine Not Noted Mirtazapine Not Noted Morphine Sulfate Not Noted Oxycodone Not Noted Intolerance No active intolerances/contraindications Physical Exam: BP 111/77 | Pulse 88 | Temp 36.3 C (97.3 F) (Oral) | Resp 16 | Ht 1.778 m (5' 10") | Wt 79.1 kg (174 lb 6.1 oz) | SpO2 90% | BMI 25.02 kg/m Gen: Alert, sitting in bed, NAD HEENT: Head normocephalic. Mucosa moist. Pupils reactive to light. RESPIRATORY: Breathing comfortably. On auscultation lungs are clear, without retractions or adventitious sounds. CARDIOVASCULAR: Cardiac auscultation reveals regular rate and rhythm. Edema-none. CHEST: Nontender. GASTROINTESTINAL: Abdomen soft with active bowel sounds present. No abnormal masses or ten derness. MUSCULOSKELETAL: Extremities symmetric. Range of motion stable. NEUROLOGIC: The patient is alert. . PSYCHIATRIC: Mood and affect stable Focuses on the Examiner and follows commands Cranial nerves stable. Strength is stable. Labs: No results found for this or any previous visit (from the past 48 hour(s)). Most recent FIM scores: Report Date 09/08/2017 FIM BladderScore: 6 FIM Bowel Score: 6 FIM Bed/Chair/Wheelchair Score: 6 FIM Toilet Transfer Score: 6 FIM Tub/Shower Transfer Score: 5 (Distant) FIM Walk Score: 6 FIM Distance Walked(feet): 500 feet FIM Wheelchair Score: FIM Stairs Score :6 FIM Eating Score: 7 FIM Grooming Score: 6 FIM Bathing Score: 5 (Distant) FIM Dressing Upper Body Score: 6 FIM Dressing Lower Body Score: 5 (Distant) FIM Toileting Score: 6 Assessment and Rehab Plan: . The patient is benefiting from inpatient rehabilitation : Physiatric and nursing interv ention; physical therapy, occupational therapy, speech therapy, case management, and social worker palliative care #Rehab - -Continue PT for gait, mobility -Continue OT for ADL's, toileting, adaptive equipment -Continue LEARNING SPECIALIST for cognition, -Continue SW for discharge planning IMPRESSION : 1. 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 Aphasia 3. Dyspraxia, ataxia, balance disorder and associated mobility problems 4. Rule out neurogenic bowel and bladder Associated comorbidities : 5. 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 Acute bronchitis 7. Hypertension 8. Hypothyroidism 9. KOKI, superimposed on chronic renal insufficiency stage III 10. Acute adjustment disorder, with probable reactive depression 11. Osteoarthritis , status post multiple total joint replacements as discussed above 12. Acute increased debility secondary to the above #/GI - Increased risk of incontinence or constipation/ voiding problems -continue current bladder and bowel regimen #DVT Prevention: Mobility, edema control, TEDS, Lovenox #Diet - Active Orders Diet Diet general; Effective Now PLAN : The patient's chart was reviewed regarding interval medical history, noting documentations, orders and recent events. We met with our patient's nurse and obtained an update on interval events. Nursing questio ns and concerns were addressed, including continence, skin issues, and pain complaints. Saf ety and mobility were discussed. The patient's current rehabilitation plan of care and projected discharge destination were discussed and reviewed with the case managers. She is collaborating with the patient's suppo rt system to solicit their input as we advance the program. The patient was seen and evaluated on rounds. We addressed the current focus of the rehabi litation program with the patient. The patient is seen and evaluated on rounds. Laboratory data reviewed. Meds reviewed. I reviewed status with patient's nurse and addressed current status, questions and issues. I reviewed status with patient's Rehabilitation therapist and addressed current status, qu estionsand issues. Note: My Progress Notes document close and ongoing Physiatric involvement; [id number] vi sits, professionally assessing the Patient, both Medically and Functionally, with the empha sis on the important interactions between our Patient's current clinical status, especially issues/barriers that may impact on the Rehabilitation Team's treatment and progress toward our medical and functional goals. I opine that this is important, so we will maximize our Patient's capacity to benefit from the Comprehensive Inpatient Medical Rehabilitation process. I did coordinate with the full team regarding the above plan and continue full rehabilitati on program. Please see rehabilitation team notes. The patient is seen and clinical status addressed in collaboration with the rehab team. I met with the charge nurse and discussed the overall nursing problematic issues. We also fo llowed up with the patient's floor nurse, discussing the above, as well as addressing the sp ecific nursing patient care focus of the day. He is doing very well. He is continent of bowel and bladder. Meds N data reviewed. We'll recheck lab in the morning. Also there is no significant pain complaints. Will decrease his Neurontin to 600 mg in the evening and recommended continue work on tapering it on outpatient basis. The full medical rehabilitation team did meet today in conference. The patient's pertinent active medical problems, comorbidities, and medical rehabilitation needs were discussed and shared with the team members. I opine that there is a reasonable expectation that due to the complexity of our patient's nursing/medical management and rehabilitation needs requires an inpatient stay, including a physician lead and coordinated interdisciplinary team approach to the delivery of rehabilita tion care. I chaired the Rehabilitative Team Conference and led the team's discussion. We discussed and assessed our patient's current status and barriers; noting tolerance and compliance progress towards the rehabilitation goals. The full Rehab Team collaborated; considering and addressing the patient's current toleranc e and compliance with the rehabilitation treatment noting any issues and seeking resolution of any problems/barriers impeding progress towards goals. I garnered the information from all of the Medical Rehabilitation cafe team member's assessments and reports as we synthesized and advanced the overall plan of care. The validity of our re habilitation goals were reassessed as we monitored and revised the treatment plan as indicat ed. She is doing very well with his rehab program. He is improved significantly regards to his safety awareness. He is now modified independent with his self-care skills including bathroom skills. Transfers are modified independent. Sampling well on the nursing unit with single-point ca ne. Given his improvement recommending discharge to home tomorrow. Going through final review and training the team today in preparation for this. We are add ressing home program. His will be her tomorrow and review this plan and home program with the 2 of them. Plan is to discharge tomorrow home program and outpatient therapy with physical therapy. Following team conference met with the patient and reviewed the above. Please see the Rehabilitation Interdisciplinary Team Conference notes for further details r egarding rehabilitation team discussion and plan. Total time: 34 minutes. We spent greater than 50% of the time regarding patient care and coordination on this date, including unit/floor time, as well as time communicating with the patient and treatment team as discussed above. Signed: Juan Rowell MD Portions of this chart may have been created with Kinetic voice recognition software. Occasi onal wrong-word or sound-alike substitutions may have occurred due to the inherent mejia itations of voice recognition software. Please read the chart carefully and recognize, using context, where these substitutions have occurred. ill, Juan Foote MD - 09/07/2017 2:54 PM PDT [id number] Daily Progress Note Date: 09/07/17 ID/CC: Reason for encounter : Physician follow-up to address the medical rehabilitation needs, issues, and problems . Interval history: Chief problem : Weakness and difficulty with self-care/ADLs and functional mobility Cough is improving with the treatment Problem List Patient Active Problem List Diagnosis COUGH, CHRONIC SHORTNESS OF BREATH COPD DISORDERS OF DIAPHRAGM DYSPNEA ON EXERTION ASTHMA, EXTRINSIC PULMONARY FUNCTION TESTS, ABNORMAL G E R D SLEEP APNEA Lumbar radiculopathy DDD (degenerative disc disease), lumbar S/P lumbar fusion Bilateral sacroiliitis Chronic low back pain Current Meds: Current Facility-Administered Medications: acetaminophen (TYLENOL) tablet 650 mg, 650 mg, Oral, Q4H PRN, Juan Rowell MD albuterol 2.5 mg/3 mL nebulizer solution 2.5 mg, 2.5 mg, Nebulization, 4x Daily, Juan Rowell MD, 2.5 mg at 09/07/17 1124 aspirin EC tablet 81 mg, 81 mg, Oral, Daily, Juan Rowell MD, 81 mg at 09/07/17 0805 atorvaSTATin (LIPITOR) tablet 10 mg, 10 mg, Oral, Nightly, Juan Rowell MD, 10 m g at 09/06/17 203 azithromycin (ZITHROMAX) tablet 250 mg, 250 mg, Oral, Daily, Juan Rowell MD, 25 0 mg at 09/07/17 0806 bacitracin topical ointment, , Topical, BID, Juan Rowell MD, 1 Application at 0 09/07/17 0811 benzonatate (TESSALON) capsule 100 mg, 100 mg, Oral, TID, Juan Rowell MD, 100 m g at 09/07/17 1415 calcium carbonate (TUMS) chewable tablet 1,000 mg, 1,000 mg, Oral, Q8H PRN, Juan Rowell MD docusate sodium (COLACE) capsule 100 mg, 100 mg, Oral, BID, Juan Rowell MD, 100 mg at 09/07/17 0806 donepezil (ARICEPT) tablet 10 mg, 10 mg, Oral, Nightly, Juan Rowell MD, 10 mg a t 09/06/172031 enoxaparin (LOVENOX) 40 mg/0.4 mL injection 40 mg, 40 mg, Subcutaneous, Daily, Juan Rowell MD, 40 mg at 09/07/17805 gabapentin (NEURONTIN) capsule 800 mg, 800 mg, Oral, Nightly, Juan Rowell MD, 8 00 mg at 09/06/172031 guaiFENesin (ROBITUSSIN) 100 mg/5 mL liquid 200 mg, 200 mg, Oral, Q4H PRN, Juan Rowell MD, 200 mg at 09/06/172035 levothyroxine (SYNTHROID) tablet 175 mcg, 175 mcg, Oral, Daily, Juan Rowell MD, 175 mcg at 09/07/17805 losartan (COZAAR) tablet 50 mg, 50 mg, Oral, BID (not ATC), Juan Rowell MD, 50 mg at 09/06/17822 ondansetron (ZOFRAN ODT) disintegrating tablet 4 mg, 4 mg, Oral, Q6H PRN, Juan Rowell MD senna (SENOKOT) tablet 8.6 mg, 8.6 mg, Oral, BID PRN, Juan Rowell MD, 8.6 mg at 08/31/172220 tamsulosin (FLOMAX) capsule 0.4 mg, 0.4 mg, Oral, Nightly, Juan Rowell MD, 0.4 mg at 09/06/172031 zolpidem (AMBIEN) tablet 5 mg, 5 mg, Oral, Nightly PRN, Juan Rowell MD, 5 mg at 09/06/172036 Allergies: Allergies Allergen Reactions Cyclobenzaprine Not Noted Fentanyl Not Noted Fluoxetine Not Noted Mirtazapine Not Noted Morphine Sulfate Not Noted Oxycodone Not Noted Intolerance No active intolerances/contraindications Physical Exam: BP 114/75 | Pulse 91 | Temp 36.2 C (97.2 F) (Oral) | Resp 20 | Ht 1.778 m (5' 10") | Wt 78.7 kg (173 lb 8 oz) | SpO2 94% | BMI 24.89 kg/m Gen: Alert, sitting in bed, NAD ENT: Sclerae clear. Oral mucosa moist. NECK: Supple. Trachea midline. No thyromegaly. RESPIRATORY: Lungs are distant, but clear to auscultation and percussion bilaterally with symmetrical air movement. The patient is breathing comfortably. CARDIOVASCULAR: Cardiac rhythmis regular. No murmur. Peripheral pulses stable. GASTROINTENSTINAL: Abdomen soft and nontender. Bowel sounds present. GENITOURINARY: Genital rectal exam not performed. Bowel and bladder management program co ntinued. MUSCULOSKELETAL: Extremities stable. Range of motion is stable. NEUROLOGIC: Finds the patient awake, alert and cooperative. Follows commands. Strength and mobility are both improving Labs: No results found for this or any previous visit (from the past 48 hour(s)). Most recent FIM scores: Report Date 09/07/2017 FIM BladderScore: 6 FIM Bowel Score: 6 FIM Bed/Chair/Wheelchair Score: 6 FIM Toilet Transfer Score: 6 FIM Tub/Shower Transfer Score: 5 (Distant) FIM Walk Score: 5 FIM Distance Walked(feet): 150 feet FIM Wheelchair Score: FIM Stairs Score :5 FIM Eating Score: 7 FIM Grooming Score: 6 FIM Bathing Score: 5 (Distant) FIM Dressing Upper Body Score: 6 FIM Dressing Lower Body Score: 5 (Distant) FIM Toileting Score: 6 Assessment and Rehab Plan: . The patient is benefiting from inpatient rehabilitation : Physiatric and nursing interv ention; physical therapy, occupational therapy, speech therapy, case management, and social worker palliative care #Rehab - -Continue PT for gait, mobility -Continue OT for ADL's, toileting, adaptive equipment -Continue LEARNING SPECIALIST for cognition, -Continue SW for discharge planning IMPRESSION : 1. 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 Aphasia 3. Dyspraxia, ataxia, balance disorder and associated mobility problems 4. Rule out neurogenic bowel and bladder Associated comorbidities : 5. 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 Acute bronchitis 7. Hypertension 8. Hypothyroidism 9. KOKI, superimposed on chronic renal insufficiency stage III 10. Acute adjustment disorder, with probable reactive depression 11. Osteoarthritis , status post multiple total joint replacements as discussed above 12. Acute increased debility secondary to the above #/GI - Increased risk of incontinence or constipation/ voiding problems -continue current bladder and bowel regimen #DVT Prevention: Mobility, edema control, TEDS, Lovenox #Diet - Active Orders Diet Diet general; Effective Now PLAN : The patient is seen and clinical status addressed in collaboration with the rehab team. The patient's chart was reviewed regarding interval medical history, noting orders and rece nt events. Laboratory data was reviewed. I met with our patient's nurse and was updated regarding current and recent clinical issues and events. We addressed nursing questions and concerns, including continence, skin issues , and pain complaints. Safety with mobility was discussed. I met with the patient's case managers and reviewed the current rehabilitation plan of care and discussed projected discharge destination. She is collaborating with the patient's support system to solicit their input as we advanc e the program. Patient is will be here Thursday. We'll schedule hands-on training on some safety is sues on that date. The patient was seen and evaluated on rounds. We addressed the current treatment focus of the rehabilitation program with the patient. I am coordinating with our Medical Rehabilitation Team considering and addressing the multi ple medical co-morbidities. Our patient is medically cleared to continue full program. Active medical problem list: Noted and reviewed Continue to address these medical issues and concerns. I will continue to lead, direct, and coordinate overall plan of care with full team. Reinfo rce safety measures and awareness. The patient is seen in collaboration with the rehab team. I met with the charge nurse alvin siming overall nursing care concerns. We also met with the patient's bedside nurse, billie frank the patient's current status and addressing any questions, concerns and/or related issues. Note: my Progress Notes document close and ongoing Physiatric involvement; [id number] vis its , professionally assessing the Patient, both Medically and Functionally, with the empha sis on the important interactions between our Patient's current clinical status, especially issues/barriers that may impact on the Rehabilitation Team's treatment and progress toward o ur medical and functional goals. I opine that this is important, so we may maximize our Patient's capacity to benefit from t he Comprehensive Inpatient Medical Rehabilitation process. The patient is seen in follow-up for evaluation and assessment of needs and ability to tole rate and benefit from an intensive rehabilitation program with our multidisciplinary-coordin ated rehabilitation team. I assessed the patient working with our rehabilitation team members and perused the team me mbgardenia' notes. The current rehabilitation treatment focus was reviewed with our patient, seek ing input, noting challenges and progress. I Assessed him working in rehab therapy clinic. Showing improvement with his safety awaren ess negotiating the environment. Gait Gait training without AD; focus on quick turns, head movements, side stepping, backwards wa lking (both combined with mental or physical dual task), catch/throw while sidestepping and walking backwards, uneven surface gait, etc. Level of [place]: supervised Assistive Device: cane (straight, single point) Distance (feet): 450 Gait Deviations: step length decreased, [id number] clearance decreased, weight-shifting a bility decreased Impairments: strength decreased, impaired balance, coordination impaired, postural control impaired Stairs no LOB, demo safe technique with AD this am session. Number of Stairs: 12 Handrail Location: right side (ascending) Level of [place]: modified independent Assistive Device: 1 rail Technique Used: step over step (descending), step over step (ascending) Safety Issues: balance decreased during turns Impairments: impaired balance, coordination impaired Follow-up tomorrow morning with the full [facility]. Total time: 36 minutes. I spent greater than 50% of the time regarding patient care and co ordination of the Medical Rehabilitation Team treatment focus addressing these patient care needs on this date, including nursing unit/floor time, as well as time communicating with [facility] patient and treatment team as discussed above. Signed: Juan Rowell MD Portions of this chart may have been created with Kinetic voice recognition software. Occasi onal wrong-word or sound-alike substitutions may have occurred due to the inherent mejia itations of voice recognition software. Please read the chart carefully and recognize, using context, where these substitutions have occurred. unham, Lulu Lomeli RN - 09/07/2017 1:33 PM PDTWith patient's v erbal permission, a copy of the Rehab Team Conference report from 09/03/17 was faxed to his P CP, Dr. Josr Henriquez, at [facility] in [place], [place].Electronically keya d by Lulu Ortiz RN at 09/07/2017 1:34 PM Lisbethll, Juan Foote MD - 09/05/2017 11:01 AM PDT [id number] Daily Progress Note Date: 09/05/17 ID/CC: Reason for encounter : Physician follow-up to address the medical rehabilitation needs, issues, and problems . Interval history: Chief problem : Weakness and difficulty with self-care/ADLs and functional mobility The cough is still bothering him Problem List Patient Active Problem List Diagnosis COUGH, CHRONIC SHORTNESS OF BREATH COPD DISORDERS OF DIAPHRAGM DYSPNEA ON EXERTION ASTHMA, EXTRINSIC PULMONARY FUNCTION TESTS, ABNORMAL G E R D SLEEP APNEA Lumbar radiculopathy DDD (degenerative disc disease), lumbar S/P lumbar fusion Bilateral sacroiliitis Chronic low back pain Current Meds: Current Facility-Administered Medications: acetaminophen (TYLENOL) tablet 650 mg, 650 mg, Oral, Q4H PRN, Juan Rowell MD albuterol 2.5 mg/3 mL nebulizer solution 2.5 mg, 2.5 mg, Nebulization, 4x Daily, Juan Rowell MD aspirin EC tablet 81 mg, 81 mg, Oral, Daily, Juan Rowell MD, 81 mg at 09/05/17812 atorvaSTATin (LIPITOR) tablet 10 mg, 10 mg, Oral, Nightly, Juan Rowell MD, 10 m g at 09/04/172021 azithromycin (ZITHROMAX) tablet 250 mg, 250 mg, Oral, Daily, Juan Rowell MD, 25 0 mg at 09/05/1713 bacitracin topical ointment, , Topical, BID, Juan Rowell MD, 1 Application at 0 09/05/1714 benzonatate (TESSALON) capsule 100 mg, 100 mg, Oral, TID, Juan Rowell MD, 100 m g at 09/05/17 0813 calcium carbonate (TUMS) chewable tablet 1,000 mg, 1,000 mg, Oral, Q8H PRN, Juan Rowell MD docusate sodium (COLACE) capsule 100 mg, 100 mg, Oral, BID, Juan Rowell MD, 100 mg at 09/05/17812 donepezil (ARICEPT) tablet 10 mg, 10 mg, Oral, Nightly, Juan Rowell MD, 10 mg a t 09/04/172022 enoxaparin (LOVENOX) 40 mg/0.4 mL injection 40 mg, 40 mg, Subcutaneous, Daily, Juan Rowell MD, 40 mg at 09/05/17812 gabapentin (NEURONTIN) capsule 800 mg, 800 mg, Oral, Nightly, Juan Rowell MD, 8 00 mg at 09/04/172021 guaiFENesin (ROBITUSSIN) 100 mg/5 mL liquid 200 mg, 200 mg, Oral, Q4H PRN, Juan Rowell MD, 200 mg at 09/03/172020 levothyroxine (SYNTHROID) tablet 175 mcg, 175 mcg, Oral, Daily, Juan Rowell MD, 175 mcg at 09/05/17812 losartan (COZAAR) tablet 50 mg, 50 mg, Oral, BID (not ATC), Juan Rowell MD, 50 mg at 09/04/17 163 ondansetron (ZOFRAN ODT) disintegrating tablet 4 mg, 4 mg, Oral, Q6H PRN, Juan Rowell MD senna (SENOKOT) tablet 8.6 mg, 8.6 mg, Oral, BID PRN, Juan Rowell MD, 8.6 mg at 08/31/172220 tamsulosin (FLOMAX) capsule 0.4 mg, 0.4 mg, Oral, Nightly, Juan Rowell MD, 0.4 mg at 09/04/172022 zolpidem (AMBIEN) tablet 5 mg, 5 mg, Oral, Nightly PRN, Juan Rowell MD, 5 mg at 09/04/172032 Allergies: Allergies Allergen Reactions Cyclobenzaprine Not Noted Fentanyl Not Noted Fluoxetine Not Noted Mirtazapine Not Noted Morphine Sulfate Not Noted Oxycodone Not Noted Intolerance No active intolerances/contraindications Physical Exam: BP 137/73 Comment: upon sitting after 2nd dyn bal ex | Pulse 95 | Temp 37.2 C (99 F) ( Oral) | Resp 18 | Ht 1.778 m (5' 10") | Wt 78.7 kg (173 lb 8 oz) | SpO2 95% | BMI 24.89 kg/m Gen: Alert, sitting in bed, NAD HEENT: Eyes clear. Oral mucosa moist. LYMPHATICS: No significant adenopathy noted in neck, axilla or groin. RESPIRATORY: Breathing comfortably, unlabored respirations. CARDIOVASCULAR: Regular rate and rhythm without audible murmur or rub noted. No edema. Pal pable peripheral pulses. GASTROINTESTINAL: Abdomen soft, non-tender, with active bowel sounds present. MUSCULOSKELETAL: Extremities symmetric with stable range of motion. NEUROLOGIC: Stable. Labs: Recent Results (from the past 48 hour(s)) Basic Metabolic Panel Result Value Ref Range NA 139 136 - 149 mmol/L K 4.3 3.5 - 5.1 mmol/L CL 103 98 - 109 mmol/L CO2 29 24 - 31 mmol/L ANION GAP 7 3 - 16 mmol/L GLUCOSE 101 70 - 109 mg/dL BUN 25 (H) 7 - 18 mg/dL Creatinine, Serum/Plasma 1.32 (H) 0.60 - 1.30 mg/dL eGFR if not 52 (L) >=60 mL/min/1.73m2 CALCIUM 9.2 8.3 - 10.5 mg/dL BUN/CREA 18.9 CBC with Differential Result Value Ref Range WBC 5.0 4.0 - 11.0 K/uL RBC 3.72 (L) 4.30 - 5.70 M/uL Hgb 11.6 (L) 13.5 - 18.0 g/dL Hct 35.4 (L) 40.0 - 51.0 % MCV 95.2 83.0 - 101.0 fL MCH 31.2 28.0 - 35.0 pg MCHC 32.8 32.0 - 36.0 g/dL RDW-CV 13.9 <15.0 % Platelet Count 208 140 - 440 K/uL MPV 9.3 fL % Neutrophils 59.7 45.0 - 82.0 % % Lymphocytes 23.4 20.0 - 45.0 % % Monocytes 9.8 4.0 - 12.0 % % Eosinophils 5.9 (H) 0.0 - 5.0 % % Basophils 1.2 (H) 0.0 - 1.0 % Absolute Neutrophils 3.00 1.80 - 8.50 K/uL Absolute Lymphocytes 1.20 0.60 - 3.20 K/uL Absolute Monocytes 0.50 0.00 - 1.00 K/uL Absolute Eosinophils 0.30 0.00 - 0.40 K/uL Absolute Basophils 0.10 0.00 - 0.10 K/uL Most recent FIM scores: Report Date 09/05/2017 FIM BladderScore: 6 FIM Bowel Score: 6 FIM Bed/Chair/Wheelchair Score: 5 FIM Toilet Transfer Score: 5 FIM Tub/Shower Transfer Score: 5 FIM Walk Score: 4 FIM Distance Walked(feet): 150 feet FIM Wheelchair Score: FIM Stairs Score :5 FIM Eating Score: 7 FIM Grooming Score: 5 FIM Bathing Score: 5 FIM Dressing Upper Body Score: 6 FIM Dressing Lower Body Score: 5 FIM Toileting Score: 5 Assessment and Rehab Plan: . The patient is benefiting from inpatient rehabilitation : Physiatric and nursing interv ention; physical therapy, occupational therapy, speech therapy, case management, and social worker palliative care #Rehab - -Continue PT for gait, mobility -Continue OT for ADL's, toileting, adaptive equipment -Continue LEARNING SPECIALIST for cognition, -Continue SW for discharge planning IMPRESSION : 1. 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 Aphasia 3. Dyspraxia, ataxia, balance disorder and associated mobility problems 4. Rule out neurogenic bowel and bladder Associated comorbidities : 5. 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 Acute bronchitis 7. Hypertension 8. Hypothyroidism 9. KOKI, superimposed on chronic renal insufficiency stage III 10. Acute adjustment disorder, with probable reactive depression 11. Osteoarthritis , status post multiple total joint replacements as discussed above 12. Acute increased debility secondary to the above #/GI - Increased risk of incontinence or constipation/ voiding problems -continue current bladder and bowel regimen #DVT Prevention: Mobility, edema control, TEDS, Lovenox #Diet - Active Orders Diet Diet general; Effective Now PLAN : Reviewed current laboratory results. Reviewed recent diagnostic studies. Reviewed current medications. Reviewed current rehabilitation therapy treatment documentation, noting the patient's st atus and tolerance. Rehabilitation therapy staffis continuing to coordinate and collaborate with the patient 's nursing staff to complement their therapy treatment focus, especially considering safety factors, as the patient is mobilized on the nursing unit. The patient is seen in collaboration with the rehab team. I met with the charge nurse alvin siming overall nursing care concerns. We also met with the patient's bedside nurse, and resp iratory therapist reviewing the patient's current status and addressing any questions, clara rns and/or related issues. I ordered albuterol breathing treatments 4 times a day. Also percussion and postural drainage focusing on the left lower lobe. I assessed him working with physical therapy. His mobility is improving. We discussed thi s. Requiring him to be modified independent transferring and bleeding in his room a single-poi nt cane Note: my Progress Notes document close and ongoing Physiatric involvement; [id number] vis its , professionally assessing the Patient, both Medically and Functionally, with the empha sis on the important interactions between our Patient's current clinical status, especially issues/barriers that may impact on the Rehabilitation Team's treatment and progress toward o ur medical and functional goals. I opine that this is important, so we may maximize our Patient's capacity to benefit from t Comprehensive Inpatient Medical Rehabilitation process. Signed: Juan Rowell MD Portions of this chart may have been created with Kinetic voice recognition software. Occasi onal wrong-word or sound-alike substitutions may have occurred due to the inherent mejia itations of voice recognition software. Please read the chart carefully and recognize, using context, where these substitutions have occurred. Hiwyatt, Juan Foote MD - 09/04/2017 4:44 PM PDT [id number] Daily Progress Note Date: 09/04/17 ID/CC: Reason for encounter : Physician follow-up to address the medical rehabilitation needs, issues, and problems . Interval history: His cough is persisting. Chief problem : Weakness and difficulty with self-care/ADLs and functional mobility He is complaining of some pain in his right hand that increases with increased activity Problem List Patient Active Problem List Diagnosis COUGH, CHRONIC SHORTNESS OF BREATH COPD DISORDERS OF DIAPHRAGM DYSPNEA ON EXERTION ASTHMA, EXTRINSIC PULMONARY FUNCTION TESTS, ABNORMAL G E R D SLEEP APNEA Lumbar radiculopathy DDD (degenerative disc disease), lumbar S/P lumbar fusion Bilateral sacroiliitis Chronic low back pain Current Meds: Current Facility-Administered Medications: acetaminophen (TYLENOL) tablet 650 mg, 650 mg, Oral, Q4H PRN, Juan Rowell MD aspirin EC tablet 81 mg, 81 mg, Oral, Daily, Juan Rowell MD, 81 mg at 09/04/17823 atorvaSTATin (LIPITOR) tablet 10 mg, 10 mg, Oral, Nightly, Juan Rowell MD, 10 m g at 09/03/172016 [START ON 09/05/2017] azithromycin (ZITHROMAX) tablet 250 mg, 250 mg, Oral, Daily, Adela Rowell MD bacitracin topical ointment, , Topical, BID, Juan Rowell MD benzonatate (TESSALON) capsule 100 mg, 100 mg, Oral, TID, Juan Rowell MD, 100 m g at 09/04/17 163 calcium carbonate (TUMS) chewable tablet 1,000 mg, 1,000 mg, Oral, Q8H PRN, Juan Rowell MD docusate sodium (COLACE) capsule 100 mg, 100 mg, Oral, BID, Juan Rowell MD, 100 mg at 09/04/17823 donepezil (ARICEPT) tablet 10 mg, 10 mg, Oral, Nightly, Juan Rowell MD, 10 mg a t 09/03/172015 enoxaparin (LOVENOX) 40 mg/0.4 mL injection 40 mg, 40 mg, Subcutaneous, Daily, Juan Rowell MD, 40 mg at 09/04/1724 gabapentin (NEURONTIN) capsule 800 mg, 800 mg, Oral, Nightly, Juan Rowell MD, 8 00 mg at 09/03/172016 guaiFENesin (ROBITUSSIN) 100 mg/5 mL liquid 200 mg, 200 mg, Oral, Q4H PRN, Juan Rowell MD, 200 mg at 09/03/172020 levothyroxine (SYNTHROID) tablet 175 mcg, 175 mcg, Oral, Daily, Juan Rowell MD, 175 mcg at 04/27/18 0824 losartan (COZAAR) tablet 50 mg, 50 mg, Oral, BID (not ATC), Juan Rowell MD, 50 mg at 09/04/17 1635 ondansetron (ZOFRAN ODT) disintegrating tablet 4 mg, 4 mg, Oral, Q6H PRN, Juan Rowell MD senna (SENOKOT) tablet 8.6 mg, 8.6 mg, Oral, BID PRN, Juan Rowell MD, 8.6 mg at 08/31/171 tamsulosin (FLOMAX) capsule 0.4 mg, 0.4 mg, Oral, Nightly, Juan Rowell MD, 0.4 mg at 09/03/172016 zolpidem (AMBIEN) tablet 5 mg, 5 mg, Oral, Nightly PRN, Juan Rowell MD Allergies: Allergies Allergen Reactions Cyclobenzaprine Not Noted Fentanyl Not Noted Fluoxetine Not Noted Mirtazapine Not Noted Morphine Sulfate Not Noted Oxycodone Not Noted Intolerance No active intolerances/contraindications Physical Exam: BP 153/90 | Pulse 78 | Temp 36.1 C (97 F) (Oral) | Resp 18 | Ht 1.778 m (5' 10") | Wt 78.7 kg (173 lb 8 oz) | SpO2 94% | BMI 24.89 kg/m Gen: Alert, sitting in bed, NAD ENT: Sclerae clear. Oral mucosa moist. NECK: Supple. Trachea midline. No thyromegaly. RESPIRATORY: Lungs are distant, and diminished at the bases of the left worse than right to auscultation and percussion bilaterally with symmetrical air movement. No wheezes or rhon chi The patient is breathing comfortably. CARDIOVASCULAR: Cardiac rhythmis regular. No murmur. Peripheral pulses stable. GASTROINTENSTINAL: Abdomen soft and nontender. Bowel sounds present. GENITOURINARY: Genital rectal exam not performed. Bowel and bladder management program co ntinued. 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 There is slight increased sensitivity of the ulnar aspect of the hand, consistent with his chronic neuropathic pain. Otherwise Extremities stable. Range of motion is stable. NEUROLOGIC: Finds the patient awake, alert and cooperative. Follows commands. Strength and mobility are stable. Labs: Recent Results (from the past 48 hour(s)) Basic Metabolic Panel Result Value Ref Range NA 139 136 - 149 mmol/L K 4.3 3.5 - 5.1 mmol/L CL 103 98 - 109 mmol/L CO2 29 24 - 31 mmol/L ANION GAP 7 3 - 16 mmol/L GLUCOSE 101 70 - 109 mg/dL BUN 25 (H) 7 - 18 mg/dL Creatinine, Serum/Plasma 1.32 (H) 0.60 - 1.30 mg/dL eGFR if not 52 (L) >=60 mL/min/1.73m2 CALCIUM 9.2 8.3 - 10.5 mg/dL BUN/CREA 18.9 CBC with Differential Result Value Ref Range WBC 5.0 4.0 - 11.0 K/uL RBC 3.72 (L) 4.30 - 5.70 M/uL Hgb 11.6 (L) 13.5 - 18.0 g/dL Hct 35.4 (L) 40.0 - 51.0 % MCV 95.2 83.0 - 101.0 fL MCH 31.2 28.0 - 35.0 pg MCHC 32.8 32.0 - 36.0 g/dL RDW-CV 13.9 <15.0 % Platelet Count 208 140 - 440 K/uL MPV 9.3 fL % Neutrophils 59.7 45.0 - 82.0 % % Lymphocytes 23.4 20.0 - 45.0 % % Monocytes 9.8 4.0 - 12.0 % % Eosinophils 5.9 (H) 0.0 - 5.0 % % Basophils 1.2 (H) 0.0 - 1.0 % Absolute Neutrophils 3.00 1.80 - 8.50 K/uL Absolute Lymphocytes 1.20 0.60 - 3.20 K/uL Absolute Monocytes 0.50 0.00 - 1.00 K/uL Absolute Eosinophils 0.30 0.00 - 0.40 K/uL Absolute Basophils 0.10 0.00 - 0.10 K/uL Most recent FIM scores: Report Date 09/04/2017 FIM BladderScore: 6 FIM Bowel Score: 6 FIM Bed/Chair/Wheelchair Score: 5 FIM Toilet Transfer Score: 5 FIM Tub/Shower Transfer Score: 5 FIM Walk Score: 4 FIM Distance Walked(feet): 150 feet FIM Wheelchair Score: FIM Stairs Score :5 FIM Eating Score: 7 FIM Grooming Score: 5 FIM Bathing Score: 5 FIM Dressing Upper Body Score: 5 FIM Dressing Lower Body Score: 5 FIM Toileting Score: 6 Assessment and Rehab Plan: . The patient is benefiting from inpatient rehabilitation : Physiatric and nursing interv ention; physical therapy, occupational therapy, speech therapy, case management, and social worker palliative care #Rehab - -Continue PT for gait, mobility -Continue OT for ADL's, toileting, adaptive equipment -Continue LEARNING SPECIALIST for cognition, -Continue SW for discharge planning IMPRESSION : 1. 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 Aphasia 3. Dyspraxia, ataxia, balance disorder and associated mobility problems 4. Rule out neurogenic bowel and bladder Associated comorbidities : 5. 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 Acute bronchitis 7. Hypertension 8. Hypothyroidism 9. KOKI, superimposed on chronic renal insufficiency stage III 10. Acute adjustment disorder, with probable reactive depression 11. Osteoarthritis , status post multiple total joint replacements as discussed above 12. Acute increased debility secondary to the above #/GI - Increased risk of incontinence or constipation/ voiding problems -continue current bladder and bowel regimen #DVT Prevention: Mobility, edema control, TEDS, Lovenox #Diet - Active Orders Diet Diet general; Effective Now PLAN : The patient is seen and evaluated on rounds. Laboratory data reviewed. Meds reviewed. I reviewed status with patient's nurse and respiratory therapist and addressed current sta tus, questions and issues. We will get more aggressive with his chronic cough which appears consistent with a chronic bronchitis, possibly with an infective component. I ordered a 5 day course of azithromycin. Also Tessalon Perles 3 times a day. I reviewed status with patient's Rehabilitation occupational therapist and addressed monet garcia status, questionsand issues. Her working on desensitization exercises for the right hand and also a trial of glove for t hat I met with our case managers, and we reviewed the overall plan of care and projected dischar ged date an,d destination. Note: My Progress Notes document close and ongoing Physiatric involvement; [id number] vi sits, professionally assessing the Patient, both Medically and Functionally, with the empha sis on the important interactions between our Patient's current clinical status, especially issues/barriers that may impact on the Rehabilitation Team's treatment and progress toward our medical and functional goals. I opine that this is important, so we will maximize our Patient's capacity to benefit from the Comprehensive Inpatient Medical Rehabilitation process. We are following up on yesterday's rehabilitation team conference. The patient's current R ehabilitation Team treatment focus and recommendations were discussed with the patient. An overview of our current progress toward goals, and active Comprehensive Inpatient Medica l Rehabilitation treatment plan was provided to the patient. Each team assembly line machine operator is addressing this as the patient advances within the short-term rehabilitation treatment plan. We opine that we may continue to anticipate significant practical improvement in function f or our patient measured against the patient's condition at the onset of the inpatient rehabi litation program. I will coordinate with the full team regarding the above plan and continue full rehabilitat ion program. Please see rehabilitation team notes. Signed: Juan Rowell MD Portions of this chart may have been created with Kinetic voice recognition software. Occasi onal wrong-word or sound-alike substitutions may have occurred due to the inherent mejia itations of voice recognition software. Please read the chart carefully and recognize, using context, where these substitutions have occurred. Hill, Juan Foote MD - 09/03/2017 4:54 PM PDT [id number] Daily Progress Note Date: 09/03/17 ID/CC: Reason for encounter : Physician follow-up to address the medical rehabilitation needs, issues, and problems . Interval history: Chief problem : Weakness and difficulty with self-care/ADLs and functional mobility No new complaints today. Problem List Patient Active Problem List Diagnosis COUGH, CHRONIC SHORTNESS OF BREATH COPD DISORDERS OF DIAPHRAGM DYSPNEA ON EXERTION ASTHMA, EXTRINSIC PULMONARY FUNCTION TESTS, ABNORMAL G E R D SLEEP APNEA Lumbar radiculopathy DDD (degenerative disc disease), lumbar S/P lumbar fusion Bilateral sacroiliitis Chronic low back pain Current Meds: Current Facility-Administered Medications: acetaminophen (TYLENOL) tablet 650 mg, 650 mg, Oral, Q4H PRN, Juan Rowell MD aspirin EC tablet 81 mg, 81 mg, Oral, Daily, Juan Rowell MD, 81 mg at 09/03/17931 atorvaSTATin (LIPITOR) tablet 10 mg, 10 mg, Oral, Nightly, Juan Rowell MD, 10 m g at 09/02/172036 calcium carbonate (TUMS) chewable tablet 1,000 mg, 1,000 mg, Oral, Q8H PRN, Juan Rowell MD dextromethorphan (DELSYM) 30 mg/5 mL ER suspension 30 mg, 30 mg, Oral, BID AC, Juan Rowell MD docusate sodium (COLACE) capsule 100 mg, 100 mg, Oral, BID, Juan Rowell MD, 100 mg at 09/03/17931 donepezil (ARICEPT) tablet 10 mg, 10 mg, Oral, Nightly, Juan Rowell MD, 10 mg a t 09/02/172036 enoxaparin (LOVENOX) 40 mg/0.4 mL injection 40 mg, 40 mg, Subcutaneous, Daily, Juan Rowell MD, 40 mg at 09/03/17932 gabapentin (NEURONTIN) capsule 800 mg, 800 mg, Oral, Nightly, Juan Rowell MD, 8 00 mg at 09/02/172036 guaiFENesin (ROBITUSSIN) 100 mg/5 mL liquid 200 mg, 200 mg, Oral, Q4H PRN, Juan Rowell MD, 200 mg at 09/03/17935 levothyroxine (SYNTHROID) tablet 175 mcg, 175 mcg, Oral, Daily, Juan Rowell MD, 175 mcg at 09/03/17931 losartan (COZAAR) tablet 50 mg, 50 mg, Oral, BID (not ATC), Juan Rowell MD, 50 mg at 09/02/17820 ondansetron (ZOFRAN ODT) disintegrating tablet 4 mg, 4 mg, Oral, Q6H PRN, Juan Rowell MD senna (SENOKOT) tablet 8.6 mg, 8.6 mg, Oral, BID PRN, Juan Rowell MD, 8.6 mg at 08/31/172220 tamsulosin (FLOMAX) capsule 0.4 mg, 0.4 mg, Oral, Nightly, Juan Rowell MD, 0.4 mg at 09/02/172036 zolpidem (AMBIEN) tablet 5 mg, 5 mg, Oral, Nightly PRN, Juan Rowell MD Allergies: Allergies Allergen Reactions Cyclobenzaprine Not Noted Fentanyl Not Noted Fluoxetine Not Noted Mirtazapine Not Noted Morphine Sulfate Not Noted Oxycodone Not Noted Intolerance No active intolerances/contraindications Physical Exam: BP 127/80 | Pulse 75 | Temp 36.5 C (97.7 F) (Oral) | Resp 20 | Ht 1.778 m (5' 10") | Wt 78.7 kg (173 lb 8 oz) | SpO2 92% | BMI 24.89 kg/m Gen: Alert, sitting in bed, NAD EYES: Conjunctiva clear. Pupils react to light. ENMT: External nose and ears normal. Mucosa moist in nose and mouth. NECK: No abnormal masses noted. Trachea midline. No thyromegaly. LYMPTHATIC: No significant adenopathy noted in neck, axillae or groin. RESPIRATORY: Normal comfortable respiratory effort. Lungs are distant, but clear. CARDIOVASCULAR: No abnormal thrill or palpitation. Regular rate and rhythm.Peripheral pulses are symmetric. GASTROINTESTINAL: No abnormal masses noted. No organomegaly appreciated. Abdomen soft. Bowel sounds present. MUSCULOSKELETAL: Range of motion stable. No new areas of increased tenderness noted. NEUROLOGIC: The patient is alert. Decreased short-term memory that does improve some with cues. The strength and mobility are stable. Labs: No results found for this or any previous visit (from the past 48 hour(s)). Most recent FIM scores: Report Date 09/03/2017 FIM BladderScore: 6 FIM Bowel Score: 6 FIM Bed/Chair/Wheelchair Score: 5 FIM Toilet Transfer Score: 5 FIM Tub/Shower Transfer Score: 5 FIM Walk Score: 4 FIM Distance Walked(feet): 150 feet FIM Wheelchair Score: FIM Stairs Score :5 FIM Eating Score: 5 FIM Grooming Score: 5 FIM Bathing Score: 5 FIM Dressing Upper Body Score: 5 FIM Dressing Lower Body Score: 5 FIM Toileting Score: 5 Assessment and Rehab Plan: . The patient is benefiting from inpatient rehabilitation : Physiatric and nursing interv ention; physical therapy, occupational therapy, speech therapy, case management, and social worker palliative care #Rehab - -Continue PT for gait, mobility -Continue OT for ADL's, toileting, adaptive equipment -Continue LEARNING SPECIALIST for cognition, -Continue SW for discharge planning IMPRESSION : 1. 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 Aphasia 3. Dyspraxia, ataxia, balance disorder and associated mobility problems 4. Rule out neurogenic bowel and bladder Associated comorbidities : 5. 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 Acute bronchitis 7. Hypertension 8. Hypothyroidism 9. KOKI, superimposed on chronic renal insufficiency stage III 10. Acute adjustment disorder, with probable reactive depression 11. Osteoarthritis , status post multiple total joint replacements as discussed above 12. Acute increased debility secondary to the above #/GI - Increased risk of incontinence or constipation/ voiding problems -continue current bladder and bowel regimen #DVT Prevention: Mobility, edema control, TEDS, Lovenox #Diet - Active Orders Diet Diet general; Effective Now PLAN : The patient is seen and evaluated on rounds. Laboratory data reviewed Meds reviewed. The patient is seen in collaboration with the rehab team. The patient's chart was reviewed regarding interval medical history, noting documentations, orders and recent events. I met with the patient as well as our case managers and reviewed the overall plan of care. Rosalina pena discussed the projected discharge date and destination. The patient's current rehabilitation plan of care and projected discharge destination were discussed and reviewed with the case managers. She is collaborating with the patient's support system to solicit their input as we advan ce the program. Scheduling hands on a patient care and family training for the patient's . Also is no jaqueline that his daughter and is an occupational therapist and we will solicit her input as we a dvance our rehab program also. The patient was seen and evaluated on rounds. We addressed the current focus of the rehabi litation program with the patient. Note: my Progress Notes document close and ongoing Physiatric involvement; [id number] vis its , professionally assessing the Patient, both Medically and Functionally, with the empha sis on the important interactions between our Patient's current clinical status, especially issues/barriers that may impact on the Rehabilitation Team's treatment and progress toward o ur medical and functional goals. I opine that this is important, so we may maximize our Patient's capacity to benefit from t he Comprehensive Inpatient Medical Rehabilitation process. I discussed and reviewed status with patient's therapists and addressed questions and issue s. . I am leading and didl coordinate with the full team regarding the above plan as we continue full rehabilitation program. The patient is seen and clinical status addressed in collaboration with the rehab team. I met with the charge nurse and discussed the overall nursing problematic issues. We also fo llowed up with the patient's floor nurse, discussing the above, as well as addressing the sp ecific nursing patient care focus of the day. We also met with the patient's bedside nurse, reviewing the patient's current status and ad dressing any questions, concerns and/or related issues. Nursing questions and concerns were addressed, including continence, skin issues, and pain complaints. The bowel and bladder program is being advanced. Patient is impulsive. We discussed some behavioral techniques to deal with this. The full medical rehabilitation team did meet today in conference. The patient's pertinent active medical problems, comorbidities, and medical rehabilitation needs were discussed and shared with the team members. I opine that there is a reasonable expectation that due to the complexity of our patient's nursing/medical management and rehabilitation needs requires an inpatient stay, including a physician lead and coordinated interdisciplinary team approach to the delivery of rehabilita tion care. I chaired the Rehabilitative Team Conference and led the team's discussion. We discussed and assessed our patient's current status and barriers; noting tolerance and compliance progress towards the rehabilitation goals. The full Rehab Team collaborated; considering and addressing the patient's current toleranc e and compliance with the rehabilitation treatment noting any issues and seeking resolution of any problems/barriers impeding progress towards goals. I garnered the information from all of the Medical Rehabilitation cafe team member's assessments and reports as we synthesized and advanced the overall plan of care. The validity of our re habilitation goals were reassessed as we monitored and revised the treatment plan as indicat ed. She is motivated and cooperative. With his basic activities of daily living he is now supervised with cues. He does have difficulty with limited attention span and short-term memory problems. Note he does better with structure and along with cues written signs. Speech therapy is working with him on developing a memory log. Also in regards to the log he has some word finding problems and their addressing this with him. With mobility is a contact-guard transfers. Standing balance and endurance are improved. We are advancing ambulation, currently single point cane and contact guard with cues. He does tend loses balance especially with turns. PT is also working with him on ambulatin g on uneven terrain. Plan is continue on full program with projected discharge to home with family on September 11. Following team conference I met with the patient and discussed the above. Safety and mobility were discussed Please see the Rehabilitation Interdisciplinary Team Conference notes for further details r egarding rehabilitation team discussion and plan. Total time: 38 minutes. We spent greater than 50% of the time regarding patient care and coordination on this date, including unit/floor time, as well as time communicating with the patient and treatment team as discussed above.. Individualized Overall Plan of Care: The patient is admitted for a course of Comprehensive Inpatient Medical Rehabilitation Serv ices, both reasonable and necessary; including 24 hr. Physician supervision for direction of all medical and rehabilitation care. The patient's functional status on admission to Inpatient Rehab is different and has declin ed compared to his/her premorbid status. The current functional status is similar to the Patient's functional status documented in the Pre-Admission screen. Specific plans are as follows: See orders Medical issues: See H&P, Problem List, and Orders Precautions: Fall/Safety, Aspiration, Pain, Spinal, Seizure, Shower, Pressure Ulcer, Bowel and Bladder, Metabolic, and Vital Signs precautions Rehabilitation Nursing: Address, treat and train the patient and family/caregivers: Medication management, indicati on and management bowel and bladder, and coordination with the Tree Girdler managing medical co -morbidities; including Coordinate with Rehab therapies as we carry over and continue the Re habilitation Skill Training from the Rehab Clinic to the Nursing Unit. Therapies: Physical Therapy (Approx. 1 and one half hours daily at least 5 days per week) to include a s indicated: transfer training, gait training, balance kaley, neuro kaley, A/PROM, strengthen ing, and to safely negotiate the environment Occupational Therapy (Approx 1 and one half hours daily at least 5 days per week) to includ e: self care/ADL training, A/PROM, strengthening, visual-perceptual kaley, neuro kaley, IADLs , and safely function and perform self care skills Speech Language Pathology Therapy (Approx 1 hours daily at least 5 days per week) to includ e: swallow eval, Dysphagia /swallowing kaley, speech retraining, cognitive kaley, med managem ent, communication skills; current cognitive status and abilities. With treatment to improv e attention to task, short term memory, problem solving and carry over. Brake Drum Lathe Operator Respiratory Therapy Please see each of the Medical Rehabilitation Team members' Individualized Plans of Care . I appreciate their input . I opine that this is important. I jalloh additional pertinent information, and from this. I integrate input from all of of our Medical Rehabilitation Team that is required for fur ther details regarding the ongoing and further development of the Patient's expected course of Treatment Note: I synthesized all of the Rehabilitation Team Members' input to support this documente d overall Plan of Care. These expectations for the Patient's course of treatment are also based on my professional Physiatric training and experience as it pertains to our Patient's medical and functional ne eds and conditions. I coordinate all of this collaboration of our Interdisciplinary Team, along with my medical opinions considering our Patient's impairments, functional status, co- morbid I complicatin g conditions, and any other contributing factors. Goals: Medical stability and safety with all aspects of function to allow discharge to the [facility] at the optimal level of function. Current goals include medication management and administration, appropriate diet and nutrit ion, optimal management of bowel and bladder, addressing and minimizing pain management, fa cilitating mood and affect. Also addressing any problems with Activities of Daily Living, transfers, and safely negotia ting the environment. Family/caregiver training, and evaluation for adaptive equipment, will be included as progr am is advanced. Specific short term and prison Rehabilitation Team Treatment Goals will be developed, sh ared and implemented in collaboration with our patient and family/caregivers. The Stained Glass Artist is the lim Rehab team assembly line machine operator interfacing with them. Rehab Potential: Good Expected Functional Level at Discharge: Modified Independent/Supervision Estimated length of stay: 9 days Discharge Plan: Discharge to pre-morbid independent living setting with the supportive care of patient's spouse/significant other/family/caregivers and community resources. Signed: Juan Rowell MD Portions of this chart may have been created with Kinetic voice recognition software. Occasi onal wrong-word or sound-alike substitutions may have occurred due to the inherent mejia itations of voice recognition software. Please read the chart carefully and recognize, using context, where these substitutions have occurred. ill, Juan Foote MD - 09/02/2017 4:27 PM PDT [id number] Daily Progress Note Date: 09/02/17 ID/CC: Reason for encounter : Physician follow-up to address the medical rehabilitation needs, issues, and problems . Interval history: The blood pressure pattern is improved overnight. Running systolic 1:15 to 135. Chief problem : Weakness and difficulty with self-care/ADLs and functional mobility Problem List Patient Active Problem List Diagnosis COUGH, CHRONIC SHORTNESS OF BREATH COPD DISORDERS OF DIAPHRAGM DYSPNEA ON EXERTION ASTHMA, EXTRINSIC PULMONARY FUNCTION TESTS, ABNORMAL G E R D SLEEP APNEA Lumbar radiculopathy DDD (degenerative disc disease), lumbar S/P lumbar fusion Bilateral sacroiliitis Chronic low back pain Current Meds: Current Facility-Administered Medications: acetaminophen (TYLENOL) tablet 650 mg, 650 mg, Oral, Q4H PRN, Juan Rowell MD aspirin EC tablet 81 mg, 81 mg, Oral, Daily, Juan Rowell MD, 81 mg at 09/02/17820 atorvaSTATin (LIPITOR) tablet 10 mg, 10 mg, Oral, Nightly, Juan Rowell MD, 10 m g at 09/01/172037 calcium carbonate (TUMS) chewable tablet 1,000 mg, 1,000 mg, Oral, Q8H PRN, Juan Rowell MD docusate sodium (COLACE) capsule 100 mg, 100 mg, Oral, BID, Juan Rowell MD, 100 mg at 09/02/17820 donepezil (ARICEPT) tablet 10 mg, 10 mg, Oral, Nightly, Juan Rowell MD, 10 mg a t 09/01/172037 enoxaparin (LOVENOX) 40 mg/0.4 mL injection 40 mg, 40 mg, Subcutaneous, Daily, Juan Rowell MD, 40 mg at 09/02/17820 gabapentin (NEURONTIN) capsule 800 mg, 800 mg, Oral, Nightly, Juan Rowell MD, 8 00 mg at 09/01/172037 guaiFENesin (ROBITUSSIN) 100 mg/5 mL liquid 200 mg, 200 mg, Oral, Q4H PRN, Juan Rowell MD, 200 mg at 09/02/1732 levothyroxine (SYNTHROID) tablet 175 mcg, 175 mcg, Oral, Daily, Juan Rowell MD, 175 mcg at 09/02/17820 losartan (COZAAR) tablet 50 mg, 50 mg, Oral, BID (not ATC), Juan Rowell MD, 50 mg at 09/02/17820 ondansetron (ZOFRAN ODT) disintegrating tablet 4 mg, 4 mg, Oral, Q6H PRN, Juan Rowell MD senna (SENOKOT) tablet 8.6 mg, 8.6 mg, Oral, BID PRN, Juan Rowell MD, 8.6 mg at 08/31/172220 tamsulosin (FLOMAX) capsule 0.4 mg, 0.4 mg, Oral, Nightly, Juan Rowell MD, 0.4 mg at 09/01/172037 zolpidem (AMBIEN) tablet 5 mg, 5 mg, Oral, Nightly PRN, Juan Rowell MD Allergies: Allergies Allergen Reactions Cyclobenzaprine Not Noted Fentanyl Not Noted Fluoxetine Not Noted Mirtazapine Not Noted Morphine Sulfate Not Noted Oxycodone Not Noted Intolerance No active intolerances/contraindications Physical Exam: BP 101/59 | Pulse 75 | Temp 35.8 C (96.4 F) (Oral) | Resp 18 | Ht 1.778 m (5' 10") | Wt 78.7 kg (173 lb 8 oz) | SpO2 95% | BMI 24.89 kg/m Gen: Alert, sitting in bed, NAD ENT: Sclerae clear. Oral mucosa moist. NECK: Supple. Trachea midline. No thyromegaly. RESPIRATORY: Lungs are clear to auscultation and percussion bilaterally with symmetrical a ir movement. The patient is breathing comfortably. CARDIOVASCULAR: Cardiac rhythmis regular. No murmur. Peripheral pulses stable. GASTROINTENSTINAL: Abdomen soft and nontender. Bowel sounds present. GENITOURINARY: Genital rectal exam not performed. Bowel and bladder management program con tinued. MUSCULOSKELETAL: Extremities stable. Range of motion is stable. NEUROLOGIC: Finds the patient awake, alert and cooperative. Follows commands. Strength and mobility are stable. Labs: Recent Results (from the past 48 hour(s)) CBC with Differential Result Value Ref Range WBC 5.9 4.0 - 11.0 K/uL RBC 3.85 (L) 4.30 - 5.70 M/uL Hgb 12.1 (L) 13.5 - 18.0 g/dL Hct 36.7 (L) 40.0 - 51.0 % MCV 95.2 83.0 - 101.0 fL MCH 31.4 28.0 - 35.0 pg MCHC 33.0 32.0 - 36.0 g/dL RDW-CV 13.8 <15.0 % Platelet Count 190 140 - 440 K/uL MPV 9.4 fL % Neutrophils 64.8 45.0 - 82.0 % % Lymphocytes 19.0 (L) 20.0 - 45.0 % % Monocytes 10.5 4.0 - 12.0 % % Eosinophils 5.0 0.0 - 5.0 % % Basophils 0.7 0.0 - 1.0 % Absolute Neutrophils 3.80 1.80 - 8.50 K/uL Absolute Lymphocytes 1.10 0.60 - 3.20 K/uL Absolute Monocytes 0.60 0.00 - 1.00 K/uL Absolute Eosinophils 0.30 0.00 - 0.40 K/uL Absolute Basophils 0.00 0.00 - 0.10 K/uL Comprehensive Metabolic Panel Result Value Ref Range NA 138 136 - 149 mmol/L K 4.2 3.5 - 5.1 mmol/L CL 104 98 - 109 mmol/L CO2 29 24 - 31 mmol/L ANION GAP 5 3 - 16 mmol/L GLUCOSE 109 70 - 109 mg/dL BUN 41 (H) 7 - 18 mg/dL Creatinine, Serum/Plasma 1.62 (H) 0.60 - 1.30 mg/dL eGFR if not 41 (L) >=60 mL/min/1.73m2 CALCIUM 9.1 8.3 - 10.5 mg/dL ALBUMIN 3.6 3.2 - 5.0 g/dL Bilirubin Total 0.7 0.1 - 1.5 mg/dL Total protein 6.1 6.0 - 7.8 g/dL AST 21 10 - 42 U/L ALT 14 6 - 45 U/L ALK PHOS 63 40 - 110 U/L GLOBULIN 2.5 2.1 - 3.8 g/dL Albumin/Globulin ratio 1.4 0.8 - 2.0 BUN/CREA 25.3 Magnesium Result Value Ref Range MG 2.2 1.8 - 2.5 mg/dL Prealbumin Result Value Ref Range PREALBUMIN 17 (L) 18 - 38 mg/dL B Type Natriuretic Peptide Result Value Ref Range BNP 20 <100 pg/mL Most recent FIM scores: Report Date 09/02/2017 FIM BladderScore: 6 FIM Bowel Score: 6 FIM Bed/Chair/Wheelchair Score: 5 FIM Toilet Transfer Score: 5 FIM Tub/Shower Transfer Score: 5 FIM Walk Score: 4 FIM Distance Walked(feet): 150 feet FIM Wheelchair Score: FIM Stairs Score :5 FIM Eating Score: 5 FIM Grooming Score: 5 FIM Bathing Score: 5 FIM Dressing Upper Body Score: 5 FIM Dressing Lower Body Score: 5 FIM Toileting Score: 5 Assessment and Rehab Plan: . The patient is benefiting from inpatient rehabilitation : Physiatric and nursing interv ention; physical therapy, occupational therapy, speech therapy, case management, and social worker palliative care #Rehab - -Continue PT for gait, mobility -Continue OT for ADL's, toileting, adaptive equipment -Continue LEARNING SPECIALIST for cognition, -Continue SW for discharge planning IMPRESSION : 1. 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 Aphasia 3. Dyspraxia, ataxia, balance disorder and associated mobility problems 4. Rule out neurogenic bowel and bladder Associated comorbidities : 5. 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 Acute bronchitis 7. Hypertension 8. Hypothyroidism 9. KOKI, superimposed on chronic renal insufficiency stage III 10. Acute adjustment disorder, with probable reactive depression 11. Osteoarthritis , status post multiple total joint replacements as discussed above 12. Acute increased debility secondary to the above #/GI - Increased risk of incontinence or constipation/ voiding problems -continue current bladder and bowel regimen #DVT Prevention: Mobility, edema control, TEDS, Lovenox #Diet - Active Orders Diet Diet general; Effective Now PLAN : The patient is seen and evaluated on rounds. Laboratory data reviewed. Meds reviewed. I reviewed status with patient's nurse and addressed current status, questions and issues. I reviewed status with patient's Rehabilitation physical therapist and addressed current s tatus, questionsand issues. Also evaluated the patient working in rehab therapy clinic Transfers SBA for safety d/t impaired balance and dec.safety awareness. Bed-Chair, Level of [place]: supervised Chair-Bed, Level of [place]: supervised [id number], Assistive Device: none Sit-Stand, Level of [place]: supervised Stand-Sit, Level of [place]: supervised [id number], Assistive Device: none Safety Issues: balance decreased during turns Impairments: strength decreased, impaired balance, coordination impaired Gait amb on ramp. Level of [place]: stand by assist Assistive Device: none Distance (feet): 300x 2 Gait Deviations: step length decreased, [id number] clearance decreased Impairments: strength decreased, impaired balance, coordination impaired, postural control impaired He is impulsive with his mobility and tends to lose his balance when trying to ambulate wit hout assistive device. I stressed to him he needs to use the front wheel walker until cleared by PT to ambulate wi thout it. Called and spoke with the patient's and we reviewed his premorbid status at length. S he is supportive. We'll schedule hands-on training. I met with our case managers, and we discussed the above, and reviewed the overall plan of c are and projected discharged date an,d destination. Note: My Progress Notes document close and ongoing Physiatric involvement; [id number] vi sits, professionally assessing the Patient, both Medically and Functionally, with the empha sis on the important interactions between our Patient's current clinical status, especially issues/barriers that may impact on the Rehabilitation Team's treatment and progress toward our medical and functional goals. I opine that this is important, so we will maximize our Patient's capacity to benefit from the Comprehensive Inpatient Medical Rehabilitation process. I will coordinate with the full team regarding the above plan and continue full rehabilitat ion program. Please see rehabilitation team notes. The patient is seen in follow-up for evaluation and assessment of needs and ability to tole rate and benefit from an intensive rehabilitation program with our multidisciplinary-coordin ated rehabilitation team. I assessed the patient working with our rehabilitation team members and perused the team me chema' notes. The current rehabilitation treatment focus was reviewed with our patient, seek ing input, noting challenges and progress. Follow-up tomorrow morning with [facility]. Signed: Juan Rowell MD Portions of this chart may have been created with Kinetic voice recognition software. Occasi onal wrong-word or sound-alike substitutions may have occurred due to the inherent mejia itations of voice recognition software. Please read the chart carefully and recognize, using context, where these substitutions have occurred. ill, Juan Foote MD - 09/01/2017 2:02 PM PDT [id number] Medicine Daily Progress Note Date: 09/01/17 ID/CC: Reason for encounter : Physician follow-up to address the medical rehabilitation needs, issues, and problems . Interval history: Patient was admitted inpatient rehab yesterday. Shift nurses note there was some confusion Also blood pressures running low. This morning 99/66. I ordered to hold the losartan Additionally noticing some frequent urination Chief problem : Weakness and difficulty with self-care/ADLs and functional mobility No significant pain complaints. He does note frequent urination. Denies dysuria. Does have a chronic cough that is frustrating. Nonproductive. Problem List Patient Active Problem List Diagnosis COUGH, CHRONIC SHORTNESS OF BREATH COPD DISORDERS OF DIAPHRAGM DYSPNEA ON EXERTION ASTHMA, EXTRINSIC PULMONARY FUNCTION TESTS, ABNORMAL G E R D SLEEP APNEA Lumbar radiculopathy DDD (degenerative disc disease), lumbar S/P lumbar fusion Bilateral sacroiliitis Chronic low back pain Current Meds: Current Facility-Administered Medications: acetaminophen (TYLENOL) tablet 650 mg, 650 mg, Oral, Q4H PRN, Juan Rowell MD aspirin EC tablet 81 mg, 81 mg, Oral, Daily, Juan Rowell MD, 81 mg at 09/01/17 1001 atorvaSTATin (LIPITOR) tablet 10 mg, 10 mg, Oral, Nightly, Juan Rowell MD, 10 m g at 08/31/17 2215 calcium carbonate (TUMS) chewable tablet 1,000 mg, 1,000 mg, Oral, Q8H PRN, Juan Rowell MD docusate sodium (COLACE) capsule 100 mg, 100 mg, Oral, BID, Juan Rowell MD, 100 mg at 09/01/17 1000 donepezil (ARICEPT) tablet 10 mg, 10 mg, Oral, Nightly, Juan Rowell MD, 10 mg a t 08/31/172215 enoxaparin (LOVENOX) 40 mg/0.4 mL injection 40 mg, 40 mg, Subcutaneous, Daily, Juan Rowell MD, 40 mg at 09/01/17 1229 gabapentin (NEURONTIN) capsule 800 mg, 800 mg, Oral, Nightly, Juan Rowell MD, 8 00 mg at 08/31/17 221 guaiFENesin (ROBITUSSIN) 100 mg/5 mL liquid 200 mg, 200 mg, Oral, Q4H PRN, Juan Rowell MD, 200 mg at 09/01/17 1233 levothyroxine (SYNTHROID) tablet 175 mcg, 175 mcg, Oral, Daily, Juan Rowell MD, 175 mcg at 09/01/17 1020 losartan (COZAAR) tablet 50 mg, 50 mg, Oral, BID (not ATC), Juan Rowell MD ondansetron (ZOFRAN ODT) disintegrating tablet 4 mg, 4 mg, Oral, Q6H PRN, Juan Rowell MD senna (SENOKOT) tablet 8.6 mg, 8.6 mg, Oral, BID PRN, Juan Rowell MD, 8.6 mg at 08/31/172220 tamsulosin (FLOMAX) capsule 0.4 mg, 0.4 mg, Oral, Nightly, Juan Rowell MD, 0.4 mg at 08/31/172215 zolpidem (AMBIEN) tablet 5 mg, 5 mg, Oral, Nightly PRN, Juan Rowell MD Allergies: Allergies Allergen Reactions Cyclobenzaprine Not Noted Fentanyl Not Noted Fluoxetine Not Noted Mirtazapine Not Noted Morphine Sulfate Not Noted Oxycodone Not Noted Intolerance No active intolerances/contraindications Physical Exam: BP 118/71 | Pulse 84 | Temp 36.5 C (97.7 F) (Oral) | Resp 18 | Ht 1.778 m (5' 10") | Wt 78.7 kg (173 lb 8 oz) | SpO2 91% | BMI 24.89 kg/m Gen: Alert, sitting in bed, NAD HEENT: Head normocephalic. Mucosa moist. Pupils reactive to light. RESPIRATORY: Breathing comfortably. On auscultation lungs are distant and diminished at t he bases, without retractions . There are a few crackles at the base but no otherr adventit ious sounds. CARDIOVASCULAR: Cardiac auscultation reveals regular rate and rhythm. Edema-none. CHEST: Nontender. GASTROINTESTINAL: Abdomen soft with active bowel sounds present. No abnormal masses or ten derness. MUSCULOSKELETAL:Multiple well-healed traumatic partial amputation of the right hand involvi ng fourth and fifth rays. The first and second rays are well-preserved. There is some defo rmity of the middle finger ray. Slight tenderness and hypersensitivity over the residual ul re aspect of that hand. Otherwise Symmetric without deformity. No clubbing or cyanosis. U se moderate plus degenerative changes throughout. Otherwise Extremities symmetric. Range of motion stable. NEUROLOGIC: Awake, alert, and oriented to person, place, situation . He is confused as to exact date. Follows basic commands and tracks past midline. Decreased short-term memory Full high level cognitive testing deferred. Does have a fascia which appears to have word finding and transcortical component. He fair ly consistently follows commands without pantomime. PSYCHIATRIC: Mood and affect appropriate. Judgement/insight impaired CRANIAL NERVES: Decreased hearing to screen bilaterally. Otherwise it appears intact to nv reen. NEUROMUSCULOSKELETAL: Normal tone and bullk. Strength testing feels diffuse mild weakness in all 4 extremities. He does have some daxa r planning problems noted. There is dyspraxia and with standing and mobility ataxia. Sensation is intact to confrontation. Slight hypersensitivity in the right hand is noted a s discussed. Otherwise no hyperpathia or allodynia appreciated. DTRs symmetric and hypoactive throughout. Labs: Recent Results (from the past 48 hour(s)) CBC with Differential Result Value Ref Range WBC 5.9 4.0 - 11.0 K/uL RBC 3.85 (L) 4.30 - 5.70 M/uL Hgb 12.1 (L) 13.5 - 18.0 g/dL Hct 36.7 (L) 40.0 - 51.0 % MCV 95.2 83.0 - 101.0 fL MCH 31.4 28.0 - 35.0 pg MCHC 33.0 32.0 - 36.0 g/dL RDW-CV 13.8 <15.0 % Platelet Count 190 140 - 440 K/uL MPV 9.4 fL % Neutrophils 64.8 45.0 - 82.0 % % Lymphocytes 19.0 (L) 20.0 - 45.0 % % Monocytes 10.5 4.0 - 12.0 % % Eosinophils 5.0 0.0 - 5.0 % % Basophils 0.7 0.0 - 1.0 % Absolute Neutrophils 3.80 1.80 - 8.50 K/uL Absolute Lymphocytes 1.10 0.60 - 3.20 K/uL Absolute Monocytes 0.60 0.00 - 1.00 K/uL Absolute Eosinophils 0.30 0.00 - 0.40 K/uL Absolute Basophils 0.00 0.00 - 0.10 K/uL Comprehensive Metabolic Panel Result Value Ref Range NA 138 136 - 149 mmol/L K 4.2 3.5 - 5.1 mmol/L CL 104 98 - 109 mmol/L CO2 29 24 - 31 mmol/L ANION GAP 5 3 - 16 mmol/L GLUCOSE 109 70 - 109 mg/dL BUN 41 (H) 7 - 18 mg/dL Creatinine, Serum/Plasma 1.62 (H) 0.60 - 1.30 mg/dL eGFR if not 41 (L) >=60 mL/min/1.73m2 CALCIUM 9.1 8.3 - 10.5 mg/dL ALBUMIN 3.6 3.2 - 5.0 g/dL Bilirubin Total 0.7 0.1 - 1.5 mg/dL Total protein 6.1 6.0 - 7.8 g/dL AST 21 10 - 42 U/L ALT 14 6 - 45 U/L ALK PHOS 63 40 - 110 U/L GLOBULIN 2.5 2.1 - 3.8 g/dL Albumin/Globulin ratio 1.4 0.8 - 2.0 BUN/CREA 25.3 Magnesium Result Value Ref Range MG 2.2 1.8 - 2.5 mg/dL Prealbumin Result Value Ref Range PREALBUMIN 17 (L) 18 - 38 mg/dL B Type Natriuretic Peptide Result Value Ref Range BNP 20 <100 pg/mL Most recent FIM scores: Report Date 09/01/2017 FIM BladderScore: 7 FIM Bowel Score: 6 FIM Bed/Chair/Wheelchair Score: 5 FIM Toilet Transfer Score: 4 FIM Tub/Shower Transfer Score: FIM Walk Score: 4 FIM Distance Walked(feet): 150 feet FIM Wheelchair Score: FIM Stairs Score :4 FIM Eating Score: 5 FIM Grooming Score: 5 FIM Bathing Score: FIM Dressing Upper Body Score: FIM Dressing Lower Body Score: FIM Toileting Score: 4 Assessment and Rehab Plan: . The patient is benefiting from inpatient rehabilitation : Physiatric and nursing interv ention; physical therapy, occupational therapy, speech therapy, case management, and social worker palliative care #Rehab - -Continue PT for gait, mobility -Continue OT for ADL's, toileting, adaptive equipment -Continue LEARNING SPECIALIST for cognition, -Continue SW for discharge planning IMPRESSION : 1. 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 Aphasia 3. Dyspraxia, ataxia, balance disorder and associated mobility problems 4. Rule out neurogenic bowel and bladder Associated comorbidities : 5. 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 Acute bronchitis 7. Hypertension 8. Hypothyroidism 9. KOKI, superimposed on chronic renal insufficiency stage III 10. Acute adjustment disorder, with probable reactive depression 11. Osteoarthritis , status post multiple total joint replacements as discussed above 12. Acute increased debility secondary to the above #/GI - Increased risk of incontinence or constipation/ voiding problems -continue current bladder and bowel regimen #DVT Prevention: Mobility, edema control, TEDS, Lovenox #Diet - Active Orders Diet Diet general; Effective Now PLAN : I opine that the patient will benefit from our acute inpatient rehabilitation program to en sure patient's safety and maximize outcome prior to discharge. Reviewed current laboratory results. Reviewed recent diagnostic studies. I reviewed the chest x-ray. That show some mild chronic lower lobe changes. To my eye no sign of active pneumonia. Having respiratory therapy work with him. Reviewed current medications, and addressed medication management. The patient is seen in collaboration with the rehab team. I met with the charge nurse rega rding overall nursing care concerns. We also met with the patient's bedside nurse, billie frank the patient's current status and addressing any questions, concerns and/or related issues. Following him closely in regards to blood pressure and pulse status as we initiate and adva nced the early treatment program. Note: my Progress Notes document close and ongoing Physiatric involvement; [id number] vis its , professionally assessing the Patient, both Medically and Functionally, with the emphdennis sis on the important interactions between our Patient's current clinical status, especially issues/barriers that may impact on the Rehabilitation Team's treatment and progress toward o ur medical and functional goals. I opine that this is important, so we may maximize our Patient's capacity to benefit from t Comprehensive Inpatient Medical Rehabilitation process. Reviewed current rehabilitation therapy treatment documentation, noting the patient's s tatus and tolerance. Rehabilitation therapy staff is continuing to coordinate and collaborate with the [facility]'s nursing staff to complement their therapy treatment focus, especially considering safet y factors as the patient is mobilized on the nursing unit. Initial rehab therapy evaluations and treatments are underway. We are orienting him to the program. Respiratory therapy is following; 02 weaning with activity as tolerated. Hypertension/Hypotension. BP pattern being followed with activity. Continue to monitorBP to rule out any orthostatic problem. Bowel/Bladder Management. Continue routine bowel program including stool softeners and laxatives and as needed suppository/enema with current constipation; and continue routine b ladder program with void trial/bladder scanning for PVR's with IC as indicated. DVT Prophylaxis. Per protocol. Rehabilitation. Continue early rehab therapy regimen as tolerated; therapy staff shaina tovar closely to see if any fatigue complaints reported after therapy. I am directing the above issues, and coordinating with the patient's other physicians in this regards, considering relationships with the other medical co-morbidities, as well a s following up with the patient's bedside nurse, and case managers/protective services social worker. See orders Total time: 37 minutes. I spent greater than 50% of the time regarding patient care and co ordination of the Medical Rehabilitation Team treatment focus addressing these patient care needs on this date, including nursing unit/floor time, as well as time communicating with [facility] patient and treatment team as discussed above. Post- Admission Rehabilitation Physician Evaluation and Plan of Care: Inpatient Rehabilitation Post-admission note Dennis Cabrera is a 82 y.o. male. : 1935 Admit Date: 08/31/2017 Attending Provider: Juan Rowell MD Admitting Diagnosis: CVA Compared to the preadmission screen, the patient is as described. Major discrepancies from pre-admission screen: None It is safe to initiate therapies. This admission is reasonable and necessary because of both medical and functional necessity . See H and P note dated 08/31/2017 for details, as well as Admitting Functional Status repo rted next. Admitting Functional Status: FIM BladderScore: 6 FIM Bowel Score: 6 FIM Bed/Chair/Wheelchair Score: 4 FIM Toilet Transfer Score: 4 FIM Tub/Shower Transfer Score 4 FIM Walk Score: 3 FIM Distance Walked(feet) 50 FIM Wheelchair Score: 4 FIM Stairs Score :2 FIM Eating Score: 5 FIM Grooming Score: 5 FIM Bathing Score: 3 FIM Dressing Upper Body Score: 5 FIM Dressing Lower Body Score: 3 FIM Toileting Score: 3 Prior functional status: Lives with spouse in a 1 story home with 1 stairs to enter. Bedroo m and shower on the main floor. he is and retired. He lives in a single story [facility] community with his in [place]. He was independent with self-care and home care skills and amplitude with single-point cane . Functional History: PRIOR FUNCTION: See above Patient was independent in mobility, self-care, swallowing, bladd er/bowel, communication, cognition. Medical History: See H&P note dated 08/31/2017 Patient's condition on admission: See H&P note dated 08/31/2017 Physical Exam: See H&P note dated 08/31/2017 Clinical complications and medical conditions the patient is at risk for d/t comorbidities and rigors of the intensive rehab program with the specific plan to avoid them: See H&P note dated 08/31/2017 Functional Goals: Mod I bed mobility Mod I transfers Mod I >150 feet gait with FWW Mod I UE dressing Mod I LE dressing Mod I 6 steps Mod I toileting Mod I toileting transfers Continent of bowel and bladder Patient Active Problem List Diagnosis COUGH, CHRONIC SHORTNESS OF BREATH COPD DISORDERS OF DIAPHRAGM DYSPNEA ON EXERTION ASTHMA, EXTRINSIC PULMONARY FUNCTION TESTS, ABNORMAL G E R D SLEEP APNEA Lumbar radiculopathy DDD (degenerative disc disease), lumbar S/P lumbar fusion Bilateral sacroiliitis Chronic low back pain ADMIT PLAN OF CARE Plan of Care: The patient is admitted for a course of Comprehensive Inpatient Medical Rehabilitation Serv ices. I opine that from an objective medical perspective these services are both reasonable and necessary. This includes 24-hour Physician supervision and direction of all medical an d rehabilitation care. The patient's functional status on admission to Inpatient Rehab is different and has decli seema compared to premorbid status. The current functional status is similar as that document ed in Preadmission screen. Specific plans are as follows: See orders Precautions: Medical stability and clearance for full Rehab, including Aspiration/Fall/Safety precaution s. See the above H+P Assessments and Comments. Rehabilitation Nursing Coordinate with Rehab therapies as we carry over and continue the Rehabilitation Skill tra ining from the Rehab Clinic to the Nursing Unit. Address, treat and train the patient and family/caregivers: Medication indication and susannah gement, bowel and bladder, and coordination with the Tree Girdler management medical comorbid ities. Therapies: Physical Therapy (1-1 Y2 hours daily at least 5 days per week) Occupational Therapy (1- 1 Y2 hours daily at least 5 days per week) Speech Therapy ( 1 hours daily at least 5 days per week) Respiratory Therapy (evaluate and treat as appropriate, including coordinating with P.T., O .T. and Nursing as we follow the patient's blood pressure, heart rate, and pulse oximetry a s we advance the intensity of the Comprehensive Medical Rehabilitation Program.) Clinical Hospital Pharmacy Technician Pharmacist Goals: Medical stability and safety with function to allow discharge to the community at the optim al level of function. Current goals include medication management and administration, appro priate diet and.nutrition,' optimal management of bowel and bladder, addressing and minimizi ng pain problems, facilitating mood and affect. Also addressing any problems with Nutrition , Dysphagia, Activities of Daily Living, transfers and safety negotiating the environment. Family/caregiver training and evaluation for adaptive equipment, continue and educate/mario mmend medical care co-morbidities will be included as program is advanced. Specific short-term and long-term Rehabilitation Team Treatment Goals will be developed, sy nthesized and implemented in collaboration with our patient and family/caregivers. The Stained Glass Artist is the lim Rehab team assembly line machine operator interfacing with them. Rehab potential is good. Estimated length of stay: 10 days. Discharge Plan: Discharge to premorbid independent living setting with the supportive car e of family/caregivers and community resources. Signed: Juan Rowell MD 09/01/2017 10:25 Portions of this chart may have been created with Kinetic voice recognition software. Occasi onal wrong-word or sound-alike substitutions may have occurred due to the inherent mejia itations of voice recognition software. Please read the chart carefully and recognize, using context, where these substitutions have occurred. documented in this encounter H&P Notes Juan Rowell MD - 08/31/2017 4:10 PM PDT IPR Admission H&P Patient name: Dennis Cabrera : 1935 Date of Admission: 08/31/2017 Attending Physician: Tom Rowell MD PCP : Josr Henriquez MD Impairment Group: Stroke 01.9 Other stroke Comorbid Conditions/List medical problems: Patient Active Problem List Diagnosis COUGH, CHRONIC SHORTNESS OF BREATH COPD DISORDERS OF DIAPHRAGM DYSPNEA ON EXERTION ASTHMA, EXTRINSIC PULMONARY FUNCTION TESTS, ABNORMAL G E R D SLEEP APNEA Lumbar radiculopathy DDD (degenerative disc disease), lumbar S/P lumbar fusion Bilateral sacroiliitis Chronic low back pain Rehabilitation Issues: Weakness Gait dysfunction Decreased balance Sensory loss Dyscoordination Cognitive deficits Aphasia Hearing impairment Functional Deficits: Impaired mobility Impaired ADLs/iADLs Impaired communication Impaired community reintegration Impaired avocation Impaired vocation CC/ID: Dennis Cabrera is a 82 y.o. male who was admitted to the inpatient acute rehabilitatio n for management of problems with function with difficulties with self-care/activities of da connie living as well as difficulties safely negotiating his environment/functional mobility HISTORY OF PRESENT ILLNESS: Chief Complaint/Identification: Dennis Cabrera is a 82 y.o. male who was admitted to [facility] in [facility] on 08/21/17 for CVA. PM&R consultation was requested by Dr. Juan Rowell MD t o provide an opinion regarding Dennis Cabrera rehabilitation needs. History of Present Illness: Patient was admitted to [facility] via the emergency room on August 21. There was a 2 day history of altered sensorium. It started following an episode of nausea and vomiti ng after a meal .(I have been able to speak with his . She reports they were on a trip and she noted that he seemed more confused. He was unsteady with his mobility and she had t o help him get up and about. He also had some bladder incontinence.). However the altered SENSORIUM persisted and he had not been eating or drinking well. Unable to track conversations and was having difficulty recognizing family members. Also s ome difficulty walking and some mobility problems. Therefore on August 21 upon their return to [place] she took him to [facility] h e was admitted On examination and difficulty with repetition. He was able to follow some s imple one-step commands but could not understand or follow more complicated commands and mor e complex directions. He was able to answer some simple yes or no questions Strength testing it was difficult due to the cognitive issues though some weakness was note d. Brain CT scan was negative for bleed or mass effect. He did show mild atrophy and microvas cular angiopathy with evidence of scattered lacunar infarctions Brain MRI was not able to be performed because he had an implanted stimulator. he was stabilized acutely and cleared for full inpatient rehab. August 25 he was transferred/discharged to their swing bed while awaiting a bed on inpatient rehab. Review of Systems: Not obtainable from the patient because of his a aphasia/communication problem PMHx: (per chart review confirmed with the patient's History was negative for previous stroke seizure or TIA. Hypertension but negative for angina or HI or dysrhythmia. Past Medical History: Diagnosis Date Chronic low back pain 09/18/2014 DDD (degenerative disc disease), lumbar 08/02/2014 Depression Hypertension Lumbar radiculopathy 08/02/2014 Neuropathy feet S/P lumbar fusion 08/02/2014 Sacroiliitis, not elsewhere classified (HCC) 09/18/2014 Thyroid disease PSx: Low lumbar spine injury with multiple, reportedly 11 previous lumbar spine surgeries. October 19, 2016 he had placement of a lumbar spinal epidural stimulator. His states jett t it was turned off when he was admitted to [facility]. 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 History of bilateral reverse total shoulder replacements, left total knee replacement, bila teral total hip replacements. He also has peripheral neuropathy with numbness and painful feet. Meds During Hospitalization Current Facility-Administered Medications Medication Dose Route Frequency Provider Last Rate Last Dose acetaminophen (TYLENOL) tablet 650 mg 650 mg Oral Q4H PRN Juan Rowell MD aspirin EC tablet 81 mg 81 mg Oral Daily Juan Rowell MD atorvaSTATin (LIPITOR) tablet 10 mg 10 mg Oral Nightly Juan Rowell MD calcium carbonate (TUMS) chewable tablet 1,000 mg 1,000 mg Oral Q8H PRN Juan chatman MD docusate sodium (COLACE) capsule 100 mg 100 mg Oral BID Juan Rowell MD donepezil (ARICEPT) tablet 10 mg 10 mg Oral Nightly Juan Rowell MD enoxaparin (LOVENOX) 40 mg/0.4 mL injection 40 mg 40 mg Subcutaneous Daily Juan Rowell MD gabapentin (NEURONTIN) capsule 800 mg 800 mg Oral Nightly Juan Rowell MD guaiFENesin (ROBITUSSIN) 100 mg/5 mL liquid 200 mg 200 mg Oral Q4H PRN Juan schneider MD [START ON 09/01/2017] levothyroxine (SYNTHROID) tablet 175 mcg 175 mcg Oral Daily Juan Rowell MD losartan (COZAAR) tablet 50 mg 50 mg Oral BID (not ATC) Juan Rowell MD ondansetron (ZOFRAN ODT) disintegrating tablet 4 mg 4 mg Oral Q6H PRN Juan lomeli MD [START ON 09/01/2017] pneumococcal (PREVNAR 13) vaccine injection 0.5 mL 0.5 mL Intramu scular One Time Vaccine Juan Rowell MD senna (SENOKOT) tablet 8.6 mg 8.6 mg Oral BID PRN Juan Rowell MD tamsulosin (FLOMAX) capsule 0.4 mg 0.4 mg Oral Nightly Juan Rowell MD zolpidem (AMBIEN) tablet 5 mg 5 mg Oral Nightly PRN Juan Rowell MD Allergies: Allergies Allergen Reactions Cyclobenzaprine Not Noted Fentanyl Not Noted Fluoxetine Not Noted Mirtazapine Not Noted Morphine Sulfate Not Noted Oxycodone Not Noted Intolerance No active intolerances/contraindications Family History: Family History Problem Relation Age of Onset Alcohol abuse Mother Alcohol abuse Father Heart disease Father High blood pressure Father Stroke Father Social History: per chart review and confirmed with pt's Social History Social History Marital status: Spouse name: N/A Number of children: 3 Years of education: N/A Occupational History [employer] Retired retired Social History Main Topics Smoking status: Former Smoker Quit date: 05/11/2002 Smokeless tobacco: Not on file Alcohol use Yes Comment: Rare Drug use: No Sexual activity: Yes Other Topics Concern Not on file Social History Narrative No narrative on file Lives with His in a 1 story home with 1 stairs to enter. Bedroom and shower on main f bindu. he is retired. He is certainly [employer] for 4 years. Subsequently he was in the [employer] and other endeavors O has been retired now for many years. S[employer] indepen dent ambulator in the house and he is single point cane in the community. [place] currently live in a one-story cottage in a senior care community in [place]. Several adult children with the supportive family. is in good health. Functional History: PRIOR FUNCTION: See above Patient was independent in mobility, self-care, swallowing, bladd er/bowel, communication, cognition. CURRENT FUNCTION: Report Date 08/31/2017 FIM BladderScore: 5 FIM Bowel Score: 5 FIM Bed/Chair/Wheelchair Score: 4 FIM Toilet Transfer Score: 4 FIM Tub/Shower Transfer Score: 4 FIM Walk Score: 4 FIM Distance Walked(feet): 150 ; unsteady and ataxic FIM Wheelchair Score: 3 FIM Stairs Score : 3 FIM Eating Score: 5 FIM Grooming Score: 5 FIM Bathing Score: 3 FIM Dressing Upper Body Score: 4 FIM Dressing Lower Body Score: 3 FIM Toileting Score: 3 Physical Exam: BP 101/69 | Pulse 75 | Temp 35.6 C (96.1 F) (Oral) | Resp 20 | Ht 1.778 m (5' 10") | Wt 78.7 kg (173 lb 8 oz) | SpO2 97% | BMI 24.89 kg/m Body mass index is 24.89 kg/m. GENERAL: Alert, cooperative;. no acute distress. HEAD: NC, AT. Eyes: Conjunctiva clear; pupils round, no drainage. ENMT: Nasal and oral mucosa moist; oropharynx clear. NECK: Supple. Trachea midline. No Thyromegaly. No JVD. LYMPHATIC No significant adenopathy noted in neck, axillae or groin. RESPIRATORY: Normal respiratory effort; breathing comfortably. On auscultation, breath soun ds are distant, and diminished at the bases. No wheezes or cry. At the bases there are a f e w scattered crackles. Has a nonproductive cough. CARDIAC: Regular rate and rhythm without murmur. Peripheral pulses are symmetric at carotid s, groin, wrists and ankles. No peripheral edema. ABDOMEN: Soft, nontender with normoactive bowel sounds. Liver/Spleen nontender. No abnormal masses. RECTAL: Not Done. EXTREMITIES: Multiple well-healed traumatic partial amputation of the right hand involving fourth and fifth rays. The first and second rays are well-preserved. There is some deformi ty of the middle finger ray. Slight tenderness and hypersensitivity over the residual ulnar aspect of that hand. Otherwise Symmetric without deformity. No clubbing or cyanosis. Use moderate plus degenerative changes throughout. BACK: Nontender. The spinal stimulator case management associate palpated in the right buttocks SKIN: Warm and dry, Intact. NEUROLOGIC: Awake, alert, and oriented to person, place, situation . He is confused as to exact date. Follows basic commands and tracks past midline. Decreased short-term memory Full high level cognitive testing deferred. Does have a fascia which appears to have word finding and transcortical component. He fair ly consistently follows commands without pantomime. PSYCHIATRIC: Mood and affect appropriate. Judgement/insight impaired CRANIAL NERVES: Decreased hearing to screen bilaterally. Otherwise it appears intact [facility] NEUROMUSCULOSKELETAL: Normal tone and bullk. Strength testing feels diffuse mild weakness in all 4 extremities. He does have some daxa r planning problems noted. There is dyspraxia and with standing and mobility ataxia. Sensation is intact to confrontation. Slight hypersensitivity in the right hand is noted a s discussed. Otherwise no hyperpathia or allodynia appreciated. DTRs symmetric and hypoactive throughout. Currently the patient requires assistance with self-care and functional mobility, including station and gait. No abnormal movements Physical exam compared to the preadmission screen: Similar Labs: No results found for this or any previous visit (from the past 48 hour(s)). Imaging: No results found for this or any previous visit (from the past 360 hour(s)). Assessment and Rehab Plan: The patient has deficits in attention, executive functioning, memory, cognitive communicati on, coordination, ambulation, swallowing, strength, ADLs, and IADLs. These diagnoses and impairments support that admission is reasonable and necessary. It is safe to continue therapies but the patient is medically complex and requires 24hr MD and [facility] care. # Rehabilitation - The patient will receive the following therapies: -- PT: impairments in gait, transfers, bed mobility, ambulation, ROM, strengthening, endura nce. -- OT: impairments in ADLs and iADLs, ROM, strengthening. -- LEARNING SPECIALIST: impairments in cognition, communication, swallow/dysphagia -- SW: discharge planning Impression : 1. 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 Aphasia 3. Dyspraxia, ataxia, balance disorder and associated mobility problems 4. Rule out neurogenic bowel and bladder Associated comorbidities : 5. 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 Acute bronchitis 7. Hypertension 8. Hypothyroidism 9. KOKI, superimposed on chronic renal insufficiency stage III 10. Acute adjustment disorder, with probable reactive depression 11. Osteoarthritis , status post multiple total joint replacements as discussed above 12. Acute increased debility secondary to the above # Pain: -MSK pain Tylenol, PRN narco/oxycodone/mild muscle relaxants -For Neuropathic pain, consider gabapentin #GI: -Peptic ulcer disease prophylaxis -PRN zofram for nausea #Bladder/Bowel management: increased risk of constipation -Cont bowel regimen -Daily docusate and senna -PRN milk of magnesia and magnesium citrate #DVT prophylaxis: -Enoxaparin 40 units daily -JAQUELINE's #Diet: Diet and Supplements Diet Diet general; Effective Now Number of Occurrences: Until Specified Order Questions: Type Diet general #IV: accesses Active Peripheral IVs No matching active lines, drains, or airways #Code Status: Full Code Plan : Patient demonstrates functional deficits in strength, balance, functional mobility and safe ly negotiating his environment, coordination, ADL's and cognition. I opine that the patient will benefit from our acute inpatient rehabilitation program to en sure patient's safety and maximize outcome prior to discharge. Reviewed current laboratory results. Reviewed recent diagnostic studies. Reviewed current medications, and addressed medication management. Reviewed current rehabilitation therapy treatment documentation, noting the patient's s tatus and tolerance. Rehabilitation therapy staff is continuing to coordinate and collaborate with the [facility]'s nursing staff to complement their therapy treatment focus, especially considering safet y factors as the patient is mobilized on the nursing unit. Respiratory therapy is following; 02 weaning with activity as tolerated. Hypertension/Hypotension. BP pattern being followed with activity. Continue to monitorBP to rule out any orthostatic problem. Bowel/Bladder Management. Continue routine bowel program including stool softeners and laxatives and as needed suppository/enema with current constipation; and continue routine b ladder program with void trial/bladder scanning for PVR's with IC as indicated. DVT Prophylaxis. Per protocol. Rehabilitation. Continue early rehab therapy regimen as tolerated; therapy staff follo w closely to see if any fatigue complaints reported after therapy. I am directing the above issues, and coordinating with the patient's other physicians in this regards, considering relationships with the other medical co-morbidities, as well a s following up with the patient's bedside nurse, and case managers/protective services social worker. See orders document ed in this encounter Consult Notes Juan Rowell MD - 08/31/2017 11:41 AM PDT REHABILITATION MEDICINE PRESCREEN NOTE: Patient Identification Dennis Cabrera is a 82 y.o. male. : 1935 Admit Date: 08/21/17 Attending Provider: Sary Parkinson MD Primary Care Physician: Josr Henriquez MD Admitting Diagnosis: CVA Chief Complaint/Identification: Dennis Cabrera is a 82 y.o. male who was admitted to [facility] in [facility] on 08/21/17 for CVA. PM&R consultation was requested by Dr. Juan Rowell MD t o provide an opinion regarding Dennis Cabrera rehabilitation needs. History of Present Illness: Patient was admitted to [facility] via the emergency room on August 21. There was a 2 day history of present sensorium. It started following an episode of nausea and vomiti ng after a meal or the nausea and vomiting stopped. However the altered SENSORIUM persisted and he had not been eating or drinking well. Unable to track conversations and was having difficulty recognizing family members. Also s ome difficulty walking and some mobility problems. On examination and difficulty with repet ition. He was able to follow some simple one-step commands but could not understand or foll ow more complicated commands and more complex directions. He was able to answer some simple yes or no questions Strength testing it was difficult due to the cognitive issues though some weakness was note d. Brain CT scan was negative for bleed or mass effect. He did show mild atrophy and microvas cular angiopathy with evidence of scattered lacunar infarctions Brain MRI was not able to be performed because he had an implanted stimulator. he was stabilized acutely and cleared for full inpatient rehab. August 25 he was transferred/discharged to their swing bed while awaiting a bed on inpatient rehab. PMHx: This history of chronic back pain with reportedly 11 prior lumbar spine surgeries. His above-mentioned implant and lumbar spine stimulator for pain control. He also has remberto pheral neuropathy with burning feet complaints and numbness and tingling in his feet with we akness in his legs. He underwent surgery in 2010 for MORIS. IVs had history of bilateral reverse TSA's, left TKA and previous JETT. Past Medical History: Diagnosis Date Chronic low back pain 09/18/2014 DDD (degenerative disc disease), lumbar 08/02/2014 Depression Hypertension Lumbar radiculopathy 08/02/2014 Neuropathy feet S/P lumbar fusion 08/02/2014 Sacroiliitis, not elsewhere classified (HCC) 09/18/2014 Thyroid disease PSx: No past surgical history on file. Meds During Hospitalization No current facility-administered medications for this encounter. Current Outpatient Prescriptions Medication Sig Dispense Refill aspirin (ASPIRIN LOW DOSE) 81 MG EC tablet Take 81 mg by mouth Daily. cabergoline (DOSTINEX) 0.5 mg tablet donepezil (ARICEPT) 5 mg tablet Take 5 mg by mouth nightly. fesoterodine fumarate (TOVIAZ) 8 MG TB24 ER tablet Take 8 mg by mouth Daily. levothyroxine (LEVOTHROID) 137 MCG tablet Take 137 mcg by mouth Daily. losartan-hydrochlorothiazide (HYZAAR) 100-25 MG per tablet Take 100-25 mg by mouth Douglas y. Multiple Vitamins-Minerals (CENTRAL-SHAUN PO) Take by mouth. Multiple Vitamins-Minerals (CENTRUM SILVER ADULT 50+ PO) Take by mouth. Multiple Vitamins-Minerals (MH MACULAR HEALTH PO) Take by mouth. Multiple Vitamins-Minerals (OCUVITE ADULT 50+ PO) Take by mouth. Naproxen Sodium (ALEVE) 220 MG CAPS Take 220 mg by mouth 2 times daily. testosterone cypionate (DEPO-TESTOSTERONE) 200 mg/mL injection 200mg IM every 2 weeks traZODone (DESYREL) 50 mg tablet Take 50 mg by mouth nightly. Allergies: Allergies Allergen Reactions Cyclobenzaprine Not Noted Fentanyl Not Noted Fluoxetine Not Noted Morphine Sulfate Not Noted Oxycodone Not Noted Intolerance No active intolerances/contraindications Family History: Family History Problem Relation Age of Onset Alcohol abuse Mother Alcohol abuse Father Heart disease Father High blood pressure Father Stroke Father Social History: per chart review and confirmed with pt Social History Social History Marital status: Spouse name: N/A Number of children: 3 Years of education: N/A Occupational History [employer] Retired retired Social History Main Topics Smoking status: Former Smoker Quit date: 05/11/2002 Smokeless tobacco: Not on file Alcohol use Yes Comment: Rare Drug use: No Sexual activity: Yes Other Topics Concern Not on file Social History Narrative No narrative on file Lives with spouse in a 1 story home with 1 stairs to enter. Bedroom and shower on the main floor. She is and retired. He lives in a single story [facility] [place] care community with his in [place]. He was independent with self-care and home care skills and amplitude with single-point cane . Functional History: PRIOR FUNCTION: See above Patient was independent in mobility, self-care, swallowing, bladd er/bowel, communication, cognition. CURRENT FUNCTION: Report Date 08/31/2017 FIM BladderScore: 4 FIM Bowel Score: 4 FIM Bed/Chair/Wheelchair Score: 4 FIM Toilet Transfer Score: 4 FIM Tub/Shower Transfer Score: 4 FIM Walk Score: 3 FIM Distance Walked(feet): 50 FIM Wheelchair Score: 4 FIM Stairs Score : 2 FIM Eating Score: 5 FIM Grooming Score: 5 FIM Bathing Score: 3 FIM Dressing Upper Body Score: 5 FIM Dressing Lower Body Score: 3 FIM Toileting Score: 3 Labs: No results found for this or any previous visit (from the past 48 hour(s)). Imaging: No results found for this or any previous visit (from the past 360 hour(s)). Assessment: Pt now has deficits in attention, executive functioning, memory, cognitive communication, c oordination, ambulation, swallowing, strength, ADLs, and IADLs. Patient demonstrated she is safe to continue therapies, has demonstrated she can do 3 hours of therapies per day, is medically complex and need 24 hours physician and IPR nursing care . Rehabilitation Medicine Recommendations: --Continue PT for strength, endurance, ROM, ambulation, balance --Continue OT for UE strengthening, functioning, and ROM; and training in ADLs, IADLs --Continue Speech therapy (LEARNING SPECIALIST) to follow for swallow and for cognitive/communication Thank you for the opportunity to be involved in the care of this patient. Please feel free to call with questions or concerns. I will continue to follow with you regarding rehabilitat ion needs. -- -- -- -- -- -- -- -- -- -- -- -- -- -- -- -- -- -- -- -- ---- -- -- -- -- -- -- -- -- -- -- -- -- -- -- -- -- -- -- -- -- Supplemental Rehab Info: Primary Diagnosis: Stroke 01.9 Other stroke Onset08/19/17 Impairments include: aphasia, dysphagia, dysarthria, apraxia, ataxia, cognitive deficits, hemiplegia, motor weakness, paresis, sensory deficits, spasms, visual impairment. Comorbidities: (current medical problems) Patient Active Problem List Diagnosis COUGH, CHRONIC SHORTNESS OF BREATH COPD DISORDERS OF DIAPHRAGM DYSPNEA ON EXERTION ASTHMA, EXTRINSIC PULMONARY FUNCTION TESTS, ABNORMAL G E R D SLEEP APNEA Lumbar radiculopathy DDD (degenerative disc disease), lumbar S/P lumbar fusion Bilateral sacroiliitis Chronic low back pain Rehab Problem list: Impaired mobility Impaired ADLs Impaired IADLs Impaired communication Impaired vision Impaired avocation Impaired vocation Impaired spiritual access Rehab: The patient can participate in 3 hours of therapy per day and demonstrates appropriate still yover, they are ready for inpatient rehabilitation admission. The pt is medically stable wit h no further medical/surgical interventions planned, but has complex rehab needs requiring i ntensive therapy intervention. I anticipate that the patient will meet the following criteri a: 1) able to make a meaningful amount of functional progress in a reasonable amount of time. 2) The patient is willing and able to participate in rehabilitation therapies based on prog ress during acute care. 3) The patient will require 24 hours supervision from rehabilitation physicians and nursing . 4) Rehabilitation goals cannot be achieved at a lower level of care. 5) Patient requires a minimum of the 3 hours of intensive therapy per day. Rehabilitation medicine physician for daily monitoring of care, 24 hour availability for ac jennifer medical issues, medication management, and therapeutic and diagnostic assessments. 24 hour rehabilitation nursing 7 days per week for: management/teaching of medications, bow el/bladder routine, skin care. PT for 60 minutes per day 5-6 days/week OT for 60 minutes per day 5-6 days/week LEARNING SPECIALIST for 60 minutes per day 4-6 days/week SW for discharge planning, community resources, and family support. Estimated length of stay is 9 days and pt is planning to discharge home with his . Current barriers to inpatient rehabilitation include: weakness, fatigue, pain, Goals/Expected level of improvement: mod I with ambulation, mod I with ADLs, supervision-min A with iADLs, mod I for toileting, and supervision with community access. Potential Clinical Complications: falls with injury, depression d/t new injury, infection, DVT with PE, worsening medical condition, Signed: Juan Rowell MD DATE/TIME: 08/31/2017 11:41 Portions of this chart may have been created with Kin[employer] voice recognition software. Occas ional wrong-word or sound-alike substitutions may have occurred due to the inherent li mitations of voice recognition software. Please read the chart carefully and recognize, zoila frank context, where these substitutions have occurred documented in this encounter Miscellaneous Notes Plan of Care - Ashley Martell RN - 09/09/2017 2:00 PM PDTPt dcd home with . AVS and prescriptions given. Plan of Care - Jackeline Bentley, Speech Pathologist - 09/09/2017 1:14 PM PDTFormatting of thi s note might be different from the original. Problem: Patient Care Overview (Adult) Goal: Care Team Goals & Evaluation PROBLEM-RELATED GOALS: 1. Will be mod ind in room by 09/07/17 2. Will have a BM every other day by 09/04/17 3. Will have not falls during hospital stay 4. Cognitive function will return to baseline by 09/07/17 5. Pt will be independent in functional transfers and ambulation w/o AD. 7. Pt will increase use of compensatory strategies and cognitive communication functions by 09/07/2017. 8. Dennis will have breath sounds consistent with baseline function throughout stay and rev erse airway bronchospasm when indicated. Reevaluate goal by 09-09-2017. 9. Dennis will maintain a patent airway and effective airway clearance by 09-09-2017. STRATEGY TO ACHIEVE GOALS: - Encourage ambulation and have pt do all assigned therapies - Administer bowel meds if no BM by day 2 - Ensure bed alarm is on and call light is within reach. - encourage pt to express wants and ideas and give extra time if needed - Full participation in PT session in functional mobility training. - Pt will participate in speech therapy. - Administer respiratory medications as ordered and adjust with use of respiratory protocol s. - Perform airway clearance using vibratory PEP therapy. Outcome: Adequate for Discharge Date Met: 09/09/17 IRF Speech Therapy Plan of Care and Discharge Treatment Note Summary: Pt seen sitting upright at edge of bed for speech therapy s/p admit to IRF follow ing CVA. present in the room. LEARNING SPECIALIST discussed with pt and compensatory strategies fo r improved word finding and memory. Pt and verbally indicated understanding. LEARNING SPECIALIST provid ed handouts of compensatory strategies and home exercise program for continued cognitive sti mulation. Pt and educated on increasing participation in daily activities at their reti rement community for increased cognitive stimulation. Pt and indicated understanding an d appeared somewhat eager to participate. ST educated pt and on finding hobbies or acti vities at home for increased cognitive stimulation. Pt able to follow multi-step directions. Pt able to recall some activities from previous day. Pt continues to present with memory d eficits, decreased word finding and attention skills. ST rec's post d/c: increased participa tion in daily activities and hobbies for increased cognitive stimulation. Pt going home toda y. No further speech therapy required at this time. Speech Language Pathology Discharge Recommendations are: Recommended discharge disposition: other (see comments) (Pt living in [facility]. Lives with ) Post discharge speech language pathology recommendation: outpatient therapy, continue LEARNING SPECIALIST tx for cognitive-linguistic Planned Interventions: compensatory strategies, patient/caregiver education, cognitive sti mulation, memory, attention Recommended Frequency: No further speech therapy required at this time. Patient Status/Goals: Reflects last filed data and may be from multiple contributors. Swallow Recommendations Recommended Solid Texture: regular Recommended Liquid Texture: thin liquids Recommended Medication Delivery: whole pills with thin liquids Recommended Feeding/Eating Techniques: alternate between small bites and sips of food/liqui d, oral care before and after each meal, maintain upright posture during/after eating for 30 mins, one small sip or bite at a time, slow rate, limit distractions Swallow Regular textures Thin liquids Cognitive Mood/Behavior: calm, cooperative Orientation: oriented x 4 Speech: spontaneous, logical, clear Follows Commands/Answers Questions: able to follow multi-step instructions Personal Safety: decreased awareness, need for safety Short/Fci Memory: mild impairment, short term memory, mild impairment, prison get[place] Executive Function Skills: lack of mental flexibility, organizational issues, mild impairme nt Auditory Comprehension Able to follow multi-step directions Verbal Expression Word finding skills improving Cognition Goal Most Recent Value STG Status met at 09/09/2017 1255 STG Pt will increase immediate memory skills with 80% accuracy at 09/09/2017 1255 Additional Goals #1 LEARNING SPECIALIST Most Recent Value STG Status progressing, revised at 09/09/2017 1255 STG Pt will participate in education of compensatory strategies to 75% accuracy at 018 1255 Additional Goals #2 LEARNING SPECIALIST Most Recent Value STG Status met at 09/09/2017 1255 STG Pt will increase focused attention to 80% accuracy. at 09/09/2017 1255 Electronically signed by: Jackeline Bentley, Speech Pathologist, 09/09/2017 13:02 lan o f [facility] - Odessa Anguiano, CITY CLERK - 09/09/2017 12:08 PM PDTFormatting of this note might be di fferent from the original. Problem: Patient Care Overview (Adult) Goal: Care Team Goals & Evaluation PROBLEM-RELATED GOALS: 1. Will be mod ind in room by 09/07/17 2. Will have a BM every other day by 09/04/17 3. Will have not falls during hospital stay 4. Cognitive function will return to baseline by 09/07/17 5. Pt will be independent in functional transfers and ambulation w/o AD. 7. Pt will increase use of compensatory strategies and cognitive communication functions by 09/07/2017. 8. Dennis will have breath sounds consistent with baseline function throughout stay and rev erse airway bronchospasm when indicated. Reevaluate goal by 09-09-2017. 9. Dennis will maintain a patent airway and effective airway clearance by 09-09-2017. STRATEGY TO ACHIEVE GOALS: - Encourage ambulation and have pt do all assigned therapies - Administer bowel meds if no BM by day 2 - Ensure bed alarm is on and call light is within reach. - encourage pt to express wants and ideas and give extra time if needed - Full participation in PT session in functional mobility training. - Pt will participate in speech therapy. - Administer respiratory medications as ordered and adjust with use of respiratory protocol s. - Perform airway clearance using vibratory PEP therapy. Outcome: Adequate for Discharge Date Met: 09/09/17 [facility] Physical Therapy Plan of Care Treatment Note Summary: Dennis has been participating in physical therapy for treatment of Gait instabili ty, imapired balance, dec.functional mobility d/t CVA. Hx of multiple back surgeries and peñaloza s an implated spine stimulator for pain control.. Emphasis of session included HEP. Deepthi t demonstrates progress towards functional goals as evidenced by gave pt handout/ demo and h ow to access the program on the web.. Pt met his goals while participating in rehabilitation . It is suggested that pt continue with out pt PT for high level balance exercises. Famil y reports he has a membership to the [facility] where therapy is located and could transit ion to an independent program. Dennis will benefit from continued therapeutic intervention to address ongoing impairments and increase safety and independence with activities necessary for safe discharge. Refer be low for specific details regarding functional levels. Physical Therapy Discharge Recommendations are: Recommended discharge disposition: (ILF with spouse) Post discharge physical therapy recommendation: Out pt therapy Equipment Recommendations: (TBD) Planned Interventions: balance training, bed mobility training, gait training, home exerci se program, transfer training, patient/family education, strengthening, stair training, daxa r coordination training Frequency: daily (1-2x/day) Patient Status/Goals: Reflects last filed data and may be from multiple contributors. Bed Mobility Pt still requires minimally increased time and effort but no physical assist. Assistive Device: none Roll Left, Level of Boulder: independent Roll Right, Level of Boulder: independent Supine to Sit, Level of Boulder: independent Sit to Supine, Level of Boulder: independent Safety Issues: decreased use of legs for bridging/pushing, impaired trunk control for bed m obility Impairments: postural control impaired, pain, impaired balance, strength decreased Transfers Pt demos safe and indepedent transfers with cane and without AD. Bed-Chair, Level of [place]oulder: independent Chair-Bed, Level of Boulder: independent [id number], Assistive Device: none Sit-Stand, Level of Boulder: modified independent Stand-Sit, Level of Boulder: modified independent [id number], Assistive Device: cane (straight, single point) Safety Issues: balance decreased during turns, weight-shifting ability decreased, sequencin g ability decreased Impairments: impaired balance, postural control impaired, strength decreased Therapeutic Exercise Gave pt a [employer] handout and went over all exercises and how to access the program on [employer] computer. PT Goal Review Date Most Recent Value STG Review Date 09/03/17 at 08/31/2017 1545 LTG Review Date 09/12/17 at 08/31/2017 1545 [id number] Goal Most Recent Value STG Status met at 09/02/2017 1500 STG Boulder Level modified independent at 08/31/2017 1545 STG Assistive Device none at 08/31/2017 1545 [id number]-[id number]-Eud Goal Most Recent Value STG Status met at 09/03/2017 0859 STG B[place] Level supervised at 08/31/2017 1545 STG Assistive Device none at 08/31/2017 1545 LTG Status met at 09/07/2017 1554 LTG [place] Level independent at 08/31/2017 1545 LTG Assistive Device cane (straight, single point) at 09/03/2017 0859 Gait Goal Most Recent Value STG Status met at 09/03/2017 0859 STG B[place] Level stand by assist at 08/31/2017 1545 STG Assistive Device none, cane (straight, single point) at 08/31/2017 1545 STG Distance (feet) 200' at 08/31/2017 1545 STG Comments none vs SPC at 08/31/2017 1545 LTG Status progressing at 09/08/2017 1624 LTG Boulder Level independent at 08/31/2017 1545 LTG Assistive Device cane (straight, single point) at 09/03/2017 0859 Stair Goal Most Recent Value STG Status met at 09/03/2017 0859 STG Boulder Level supervised at 08/31/2017 1545 STG Assistive Device 2 rails at 08/31/2017 1545 STG Number of Stairs 12 at 08/31/2017 1545 LTG Status met at 09/08/2017 1430 LTG Boulder Level modified independent at 08/31/2017 1545 LTG Assistive Device 2 rails at 08/31/2017 1545 LTG Number of Stairs 12 at 08/31/2017 1545 Additional Goal #1 PT Most Recent Value STG Status not met at 09/04/2017 0944 STG Improve DGI score to 24 to dec.fall risk at 08/31/2017 1545 LTG Status progressing at 09/07/2017 1010 LTG mprove DGI score to 24 to dec.fall risk at 09/04/2017 0944 Electronically signed by: Odessa Anguiano PTA, 09/09/2017 12:03 Goal Evaluation: Associated attestation - Anuradha Tang PT - 09/21/2017 3:34 PM PDTDischarge Note Spoke with occupational therapy technician regarding patient status and goals, agree with plan of care. Patient is adequate for discharge from PT services at this time. Electronically signed by: ANURADHA TANG PT, 09/21/2017 15:33Plan of Care - Tali Velarde MSW - 09/09/2017 10:42 AM PDTProblem: Discharge Planning Goal: Patient will be discharged in a safe manner This CM met with the patient to confirm today's discharge and answer questions. The patien t would like outpatient OT, PT, and LEARNING SPECIALIST post discharge. The patient's spouse, Brie, will b e in this afternoon to transport the patient home. The patient was given his [employer] and Medica l passport. The patient declined having questions at this time. Electronically signed by: ELIOT Rossi 09/09/2017 10:42 lan of Care - Tali Velarde MSW - 09/09/2017 10:27 AM PDTFormatting of this note might be different from the o riginal. Medical Passport NAME:Dennis Cabrera : 1935 Gender: male Extended Emergency Contact Information Primary Emergency Contact: Brie Cabrera Address: [address] [place] [address] [place] [address] [facility] Relation: Spouse Secondary Emergency Contact: Chloe Malik Address: [place] [address] [facility] Relation: Daughter Advance Directives: No - Information Given Attending Provider: Juan Rowell MD Insurance: Payor/Plan Subscr Sex Relation Sub. Ins. ID Effective Group Num 1. MEDICARE - [place]ON MIRANDAOL* 1935 Male [id number] 04/10/1995 [address] 2. AARP - AARP [place] MIRANDAOL* 1935 Male [id number] 04/10/1998 [facility], [address] Hospital Preference: [facility] Personal Health History Allergies Allergen Reactions Cyclobenzaprine Fentanyl Fluoxetine Mirtazapine Morphine Sulfate Oxycodone Immunization History Administered Date(s) Administered PNEUMOCOCCAL CONJUGATE 13-VALENT (PCV13) 09/01/2017 Patient Active Problem List Diagnosis COUGH, CHRONIC SHORTNESS OF BREATH COPD DISORDERS OF DIAPHRAGM DYSPNEA ON EXERTION ASTHMA, EXTRINSIC PULMONARY FUNCTION TESTS, ABNORMAL G E R D SLEEP APNEA Lumbar radiculopathy DDD (degenerative disc disease), lumbar S/P lumbar fusion Bilateral sacroiliitis Chronic low back pain CVA (cerebrovascular accident) Aphasia Bronchitis Hypertension Past Medical History: Diagnosis Date Chronic low back pain 09/18/2014 DDD (degenerative disc disease), lumbar 08/02/2014 Depression Hypertension Lumbar radiculopathy 08/02/2014 Neuropathy feet S/P lumbar fusion 08/02/2014 Sacroiliitis, not elsewhere classified (HCC) 09/18/2014 Thyroid disease No past surgical history on file. Social History Social History Marital status: Spouse name: N/A Number of children: 3 Years of education: N/A Occupational History [employer] Retired retired Social History Main Topics Smoking status: Former Smoker Quit date: 05/11/2002 Smokeless tobacco: Not on file Alcohol use Yes Comment: Rare Drug use: No Sexual activity: Yes Other Topics Concern Not on file Social History Narrative No narrative on file Functional Status Transfers Bed to Chair independent Chair to Bed independent Sit to Stand independent Gait Gait Comments: outside on grass incline, rocks and wide depth stairs. Level of Boulder: modified independent Assistive Device: cane (straight, single point) Distance (feet): 1000 Additional Documentation: deviations, impairments, stairs (group) Gait Deviations: step length decreased, dhc-[id number] clearance decreased, weight-shifting a bility decreased Impairments: strength decreased, impaired balance, coordination impaired, postural control impaired Stairs Stairs, Comment: no LOB, demo safe technique with AD this am session. Number of Stairs: 12 Handrail Location: right side (ascending) Level of Boulder: modified independent Assistive Device: 1 rail Technique Used: step to step (descending) Safety Issues: balance decreased during turns Impairments: impaired balance, coordination impaired Dressing Upper Body UB Dressing Assess/Train, Comment: . UB Dressing, Level of Boulder: independent Assistive Device: none UB Dressing Assess/Train, Position: standing UB Dressing Assess/Train, Impairments: impaired balance, motor control impaired Lower Body LB Dressing Assess/Train, Comment: including donning/doffing socks and shoes LB Dressing, Level of Boulder: independent Assistive Device: none LB Dressing Assess/Train, Position: standing, sitting LB Dressing Assess/Train, Impairments: impaired balance, motor control impaired, decreased flexibility, postural control impaired Bathing Bathing Assess/Train, Comment: . Bathing, Level of Boulder: modified independent Assistive Device: hand-held shower head, shower chair with back Bathing Assess/Train, Position: sitting, standing Bathing Assess/Train, Impairments: impaired balance, decreased flexibility Diet Diet/Nutrition Prescription: general Swallowing Recommended Liquid Texture: thin liquids Recommended Solid Texture: regular Recommended Medication Delivery: whole pills with thin liquids Recommended Feeding/Eating Techniques: alternate between small bites and sips of food/liqui d, oral care before and after each meal, maintain upright posture during/after eating for 30 mins, one small sip or bite at a time, slow rate, limit distractions Corrective Lens: Hearing Aid: Electronically signed by: ELIOT Rossi 09/09/2017 10:40 lan of [facility] - Keri Lopez, ALUMNI RELATIONS OFFICER - 09/09/2017 8:33 AM PDTProblem: Patient Care Overview (Adult) Goal: Care Team Goals & Evaluation PROBLEM-RELATED GOALS: 1. Will be mod ind in room by 09/07/17 2. Will have a BM every other day by 09/04/17 3. Will have not falls during hospital stay 4. Cognitive function will return to baseline by 09/07/17 5. Pt will be independent in functional transfers and ambulation w/o AD. 7. Pt will increase use of compensatory strategies and cognitive communication functions by 09/07/2017. 8. Dennis will have breath sounds consistent with baseline function throughout stay and rev erse airway bronchospasm when indicated. Reevaluate goal by 09-09-2017. 9. Dennis will maintain a patent airway and effective airway clearance by 09-09-2017. STRATEGY TO ACHIEVE GOALS: - Encourage ambulation and have pt do all assigned therapies - Administer bowel meds if no BM by day 2 - Ensure bed alarm is on and call light is within reach. - encourage pt to express wants and ideas and give extra time if needed - Full participation in PT session in functional mobility training. - Pt will participate in speech therapy. - Administer respiratory medications as ordered and adjust with use of respiratory protocol s. - Perform airway clearance using vibratory PEP therapy. Outcome: Improving Goal Evaluation: Jin is planning to be discharged to home sometime today. His BS are clear throughout all lung qureshi. Has a dry non productive cough. His smoking hi story consists of a short time when he was a child. Doesn't take nebs @ home. His RA SpO2 va lues have been in the mid to high 90's. This morning 95% @ rest. Electronically signed by: Keri Jones, NAEEM 09/09/2017 8:33 lan of Care - Sandy Valdes COTA - 09/09/2017 8:00 AM PDTFormatting of this note might be differen t from the original. Problem: Patient Care Overview (Adult) Goal: Care Team Goals & Evaluation PROBLEM-RELATED GOALS: 1. Will be mod ind in room by 09/07/17 2. Will have a BM every other day by 09/04/17 3. Will have not falls during hospital stay 4. Cognitive function will return to baseline by 09/07/17 5. Pt will be independent in functional transfers and ambulation w/o AD. 7. Pt will increase use of compensatory strategies and cognitive communication functions by 09/07/2017. 8. Dennis will have breath sounds consistent with baseline function throughout stay and rev erse airway bronchospasm when indicated. Reevaluate goal by 09-09-2017. 9. Dennis will maintain a patent airway and effective airway clearance by 09-09-2017. STRATEGY TO ACHIEVE GOALS: - Encourage ambulation and have pt do all assigned therapies - Administer bowel meds if no BM by day 2 - Ensure bed alarm is on and call light is within reach. - encourage pt to express wants and ideas and give extra time if needed - Full participation in PT session in functional mobility training. - Pt will participate in speech therapy. - Administer respiratory medications as ordered and adjust with use of respiratory protocol s. - Perform airway clearance using vibratory PEP therapy. Outcome: Adequate for Discharge Date Met: 09/09/17 IRF Occupational Therapy Plan of Care Treatment Note Summary: Dennis has been participating in occupational therapy for treatment of Decrease d ADL independence and functional mobility s/p admission for CVA. Hx of multiple back surg eries and has an implated spine stimulator for pain control.. Emphasis of session included Morning ADL's to obtain D/C FIM and Care Scores. Patient demonstrates progress towards func tional goals as evidenced by Pt demonstrating I to Mod I with self cares this AM. Pt to d/c home today with family assist and supervision. Occupational Therapy Discharge Recommendations are: Recommended discharge disposition: home with assist Post discharge occupational therapy recommendation: outpatient therapy Equipment Recommendations: shower chair, grab bars, hand held shower head Planned Interventions:ADL retraining, IADL retraining, balance training, cognitive retraini ng, neuromuscular re-education Recommended Frequency: (Rehab schedule) Patient Status/Goals: Reflects last filed data and may be from multiple contributors. ADLs Pt is Mod I to Independent with all aspects of his AM ADL's, Pt safely ambulating w/o SPC t his AM. . Bathing, Level of [place]: modified independent Assistive Device: hand-held shower head, shower chair with back Bathing Assess/Train, Position: sitting, standing Bathing Assess/Train, Impairments: impaired balance, decreased flexibility . UB Dressing, Level of [place]: independent Assistive Device: none UB Dressing Assess/Train, Position: standing UB Dressing Assess/Train, Impairments: impaired balance, motor control impaired including donning/doffing socks and shoes LB Dressing, Level of [place]: independent Assistive Device: none LB Dressing Assess/Train, Position: standing, sitting LB Dressing Assess/Train, Impairments: impaired balance, motor control impaired, decreased flexibility, postural control impaired . Toileting, Level of [place]: modified independent Assistive Device: grab bar Toileting Assess/Train, Position: sitting, standing Toileting Assess/Train, Impairments: impaired balance including oral care Grooming, Level of [place]: independent Assistive Device: none Grooming Assess/Train, Position: standing Grooming Assess/Train, Impairments: impaired balance Self-Feeding, Level of [place]: independent Assistive Device: none Self-Feeding Assess/Train, Position: sitting Self-Feeding Assess/Train, Impairments: (deficits in STM and problem solving) Bed Mobility Pt continues to require extra effort with supine to sit EOB , but he is doing so w/o any as sist Assistive Device: none Roll Left, Level of [place]: independent Roll Right, Level of [place]: independent Supine to Sit, Level of [place]: independent Sit to Supine, Level of [place]: independent Safety Issues: decreased use of legs for bridging/pushing Impairments: impaired balance Transfers pt demonstraiting Independent to mod I transfers this AM Bed-Chair, Level of [place]: independent Chair-Bed, Level of [place]: modified independent [id number], Assistive Device: none Sit-Stand, Level of [place]: independent Stand-Sit, Level of [place]: independent [id number], Assistive Device: none Toilet, Level of [place]: modified independent Toilet, Assistive Device: none Walk-in shower, Level of [place]: modified independent Walk-in shower, Assistive Device: grab bars, shower chair Safety Issues: balance decreased during turns, weight-shifting ability decreased, sequencin g ability decreased Impairments: impaired balance OT Goal Review Date Most Recent Value STG Review Date 09/04/17 at 08/31/2017 1704 LTG Review Date 09/11/17 at 08/31/2017 1704 Grooming Goal Most Recent Value STG Status met at 09/01/2017 0851 STG [place] Level supervised at 08/31/2017 1704 LTG Status met at 09/05/2017 0920 LTG [place] Level modified independent at 08/31/2017 1704 LB Dressing Goal Most Recent Value STG Status met at 09/02/2017 0906 STG [place] Level supervised at 08/31/2017 1704 LTG Status met at 09/08/2017 0743 LTG [place] Level modified independent at 08/31/2017 1704 Toilet Transfer Goal Most Recent Value STG Status met at 09/01/2017 0851 STG [place] Level supervised at 08/31/2017 1704 LTG Status met at 09/06/2017 0908 LTG [place] Level modified independent at 08/31/2017 1704 Tub/Shower Transfer Goal Most Recent Value Tub/Shower Type walk in shower stall at 09/05/2017 0920 STG Status met at 09/02/2017 0906 STG [place] Level contact guard assist at 08/31/2017 1704 STG Assistive Device shower chair, grab bars at 09/01/2017 1558 LTG Status met at 09/07/2017 0740 LTG [place] Level -- [Distant supervision] at 09/05/2017 0920 Additional Goals #1 OT Most Recent Value STG Status not met at 09/08/2017 1346 STG pt will demonstrate simple meal preparation task with min assist and v/c for safety to promote IADLs at 09/02/2017 1423 LTG Status not met at 09/08/2017 1346 LTG pt will demonstrate simple meal preparation task with superviison assist and 1 v/c for safety to promote IADLs at 09/02/2017 1423 Additional Goals #2 OT Most Recent Value LTG Status met at 09/08/2017 1346 LTG Pt will complete small laundry task w/ mod I. at 09/06/2017 0908 Electronically signed by: CHRIS Espinoza, 09/09/2017 11:37 lan of Care - Yusef Frederick RN - 09/09/2017 3:25 AM PDTProblem: Patient Care Overview (Adult) Goal: Care Team Goals & Evaluation PROBLEM-RELATED GOALS: 1. Will be mod ind in room by 09/07/17 2. Will have a BM every other day by 09/04/17 3. Will have not falls during hospital stay 4. Cognitive function will return to baseline by 09/07/17 5. Pt will be independent in functional transfers and ambulation w/o AD. 7. Pt will increase use of compensatory strategies and cognitive communication functions by 09/07/2017. 8. Dennis will have breath sounds consistent with baseline function throughout stay and rev erse airway bronchospasm when indicated. Reevaluate goal by 09-09-2017. 9. Dennis will maintain a patent airway and effective airway clearance by 09-09-2017. STRATEGY TO ACHIEVE GOALS: - Encourage ambulation and have pt do all assigned therapies - Administer bowel meds if no BM by day 2 - Ensure bed alarm is on and call light is within reach. - encourage pt to express wants and ideas and give extra time if needed - Full participation in PT session in functional mobility training. - Pt will participate in speech therapy. - Administer respiratory medications as ordered and adjust with use of respiratory protocol s. - Perform airway clearance using vibratory PEP therapy. Outcome: Improving Goal Evaluation: Heart regular, lungs clear, bowel tones active x4, last BM 09/08, voids without difficulty, free of falls, independent in room and halls with a single point cane, alert and oriented, n o neuro deficits, plan is home with and out patient therapy today 09/09/17.. lan of Care - Ashley Bello RN - 09/08/2017 6:02 PM PDTProblem: Patient Care Overview (Adult) Goal: Care Team Goals & Evaluation PROBLEM-RELATED GOALS: 1. Will be mod ind in room by 09/07/17 2. Will have a BM every other day by 09/04/17 3. Will have not falls during hospital stay 4. Cognitive function will return to baseline by 09/07/17 5. Pt will be independent in functional transfers and ambulation w/o AD. 7. Pt will increase use of compensatory strategies and cognitive communication functions by 09/07/2017. 8. Dennis will have breath sounds consistent with baseline function throughout stay and rev erse airway bronchospasm when indicated. Reevaluate goal by 09-09-2017. 9. Dennis will maintain a patent airway and effective airway clearance by 09-09-2017. STRATEGY TO ACHIEVE GOALS: - Encourage ambulation and have pt do all assigned therapies - Administer bowel meds if no BM by day 2 - Ensure bed alarm is on and call light is within reach. - encourage pt to express wants and ideas and give extra time if needed - Full participation in PT session in functional mobility training. - Pt will participate in speech therapy. - Administer respiratory medications as ordered and adjust with use of respiratory protocol s. - Perform airway clearance using vibratory PEP therapy. Outcome: Improving Goal Evaluation: pt alert and oriented times 3. Denies pain or discomfort. PEDIATRIC CLINICAL DIETICIAN harsh cough noted. Pt is ind in room. LBM on the 30. No neuro deficits noted. lan of [facility] - Jackeline Bentley, Speech Pathologist - 09/08/2017 5:28 PM PDTFormatting of this note might be diff erent from the original. Problem: Patient Care Overview (Adult) Goal: Care Team Goals & Evaluation PROBLEM-RELATED GOALS: 1. Will be mod ind in room by 09/07/17 2. Will have a BM every other day by 09/04/17 3. Will have not falls during hospital stay 4. Cognitive function will return to baseline by 09/07/17 5. Pt will be independent in functional transfers and ambulation w/o AD. 7. Pt will increase use of compensatory strategies and cognitive communication functions by 09/07/2017. 8. Dennis will have breath sounds consistent with baseline function throughout stay and rev erse airway bronchospasm when indicated. Reevaluate goal by 09-09-2017. 9. Dennis will maintain a patent airway and effective airway clearance by 09-09-2017. STRATEGY TO ACHIEVE GOALS: - Encourage ambulation and have pt do all assigned therapies - Administer bowel meds if no BM by day 2 - Ensure bed alarm is on and call light is within reach. - encourage pt to express wants and ideas and give extra time if needed - Full participation in PT session in functional mobility training. - Pt will participate in speech therapy. - Administer respiratory medications as ordered and adjust with use of respiratory protocol s. - Perform airway clearance using vibratory PEP therapy. Outcome: Improving IRF Speech Therapy Plan of Care Treatment Note Summary: Pt seen sitting upright in chair at bedside for speech therapy treatment s/p admit to IRF following CVA. Pt although improving, continues to present with memory loss, decreas ed ability to make judgments, and decreased ability to function independently. Pt participat ed in structured cognitive stimulation tasks targeting delayed memory, attention, following directions. Pt completed 2-step directions with multiple components with 90% accuracy. Pt co mpleted memory tasks with 80% accuracy. Pt spontaneously recalled yesterday's therapy activi ty. Pt recalled more past history facts today. Pt and LEARNING SPECIALIST discussed compensatory strategies for improved memory, attention, and communication. LEARNING SPECIALIST discussed with pt finding a hobby or activity for improved cognitive stimulation at home. LEARNING SPECIALIST rec's continued cognitive linguisti c therapies to address attention, memory, word finding, and compensatory strategies for impr nichole memory and attention. Speech Language Pathology Discharge Recommendations are: Recommended discharge disposition: other (see comments) (TBD) Post discharge speech language pathology recommendation: continue LEARNING SPECIALIST tx for cognitive-sebas guistic Planned Interventions: compensatory strategies, patient/caregiver education, cognitive sti mulation, memory, attention Recommended Frequency: 3 times/wk Patient Status/Goals: Reflects last filed data and may be from multiple contributors. Swallow Recommendations Recommended Solid Texture: regular Recommended Liquid Texture: thin liquids Recommended Medication Delivery: whole pills with thin liquids Recommended Feeding/Eating Techniques: alternate between small bites and sips of food/liqui d, oral care before and after each meal, maintain upright posture during/after eating for 30 mins, one small sip or bite at a time, slow rate, limit distractions Swallow Regular textures. Thin liquids. Cognitive MoCA score of 14/30 Mood/Behavior: calm, cooperative Orientation: oriented x 4 Speech: spontaneous, logical, clear Follows Commands/Answers Questions: able to follow multi-step instructions, needs cueing Personal Safety: decreased awareness, need for safety Short/Fci Memory: mild impairment, terminal supervisor memory, moderate impairment, short term memory Executive Function Skills: moderate impairment, impulsivity, insight/awareness issues Auditory Comprehension Able to follow 2-step directions with multiple conponents Cognition Goal Most Recent Value STG Status continued at 09/08/2017 1716 STG Pt will increase immediate memory skills with 80% accuracy at 09/08/2017 171 Additional Goals #1 LEARNING SPECIALIST Most Recent Value STG Status continued at 09/08/2017 171 STG Pt will increase use of compensatory strategies to 75% accuracy at 09/08/2017 171 Additional Goals #2 LEARNING SPECIALIST Most Recent Value STG Status continued at 09/08/2017 171 STG Pt will increase focused attention to 80% accuracy. at 09/08/2017 1716 Electronically signed by: Jackeline Bentley Speech Pathologist, 09/08/2017 17:21 lan o f [facility] - Odessa Anguiano, CITY CLERK - 09/08/2017 4:33 PM PDTFormatting of this note might be di fferent from the original. Problem: Patient Care Overview (Adult) Goal: Care Team Goals & Evaluation PROBLEM-RELATED GOALS: 1. Will be mod ind in room by 09/07/17 2. Will have a BM every other day by 09/04/17 3. Will have not falls during hospital stay 4. Cognitive function will return to baseline by 09/07/17 5. Pt will be independent in functional transfers and ambulation w/o AD. 7. Pt will increase use of compensatory strategies and cognitive communication functions by 09/07/2017. 8. Dennis will have breath sounds consistent with baseline function throughout stay and rev erse airway bronchospasm when indicated. Reevaluate goal by 09-09-2017. 9. Dennis will maintain a patent airway and effective airway clearance by 09-09-2017. STRATEGY TO ACHIEVE GOALS: - Encourage ambulation and have pt do all assigned therapies - Administer bowel meds if no BM by day 2 - Ensure bed alarm is on and call light is within reach. - encourage pt to express wants and ideas and give extra time if needed - Full participation in PT session in functional mobility training. - Pt will participate in speech therapy. - Administer respiratory medications as ordered and adjust with use of respiratory protocol s. - Perform airway clearance using vibratory PEP therapy. Outcome: Improving IRF Physical Therapy Plan of Care Treatment Note Summary: Dennis has been participating in physical therapy for treatment of Gait instabili ty, imapired balance, dec.functional mobility d/t CVA. Hx of multiple back surgeries and peñaloza s an implated spine stimulator for pain control.. Emphasis of session included uneven groun d training and strength/endurance. Patient demonstrates progress towards functional goals a s evidenced by amb 200 on grass w/o LOB. Remaining barriers to discharge and functional mejia itations include decreased insight into safety and deficits and demonstrating need for 24/7 supervision. Dennis will benefit from continued therapeutic intervention to address ongoing impairments and increase safety and independence with activities necessary for safe discharge. Refer be low for specific details regarding functional levels. Physical Therapy Discharge Recommendations are: Recommended discharge disposition: (ILF with spouse) Post discharge physical therapy recommendation: home health Equipment Recommendations: (TBD) Planned Interventions: balance training, bed mobility training, gait training, home exerci se program, transfer training, patient/family education, strengthening, stair training, daxa r coordination training Frequency: daily (1-2x/day) Patient Status/Goals: Reflects last filed data and may be from multiple contributors. Bed Mobility Pt still requires minimally increased time and effort but no physical assist. Assistive Device: none Roll Left, Level of [place]: independent Roll Right, Level of [place]: independent Supine to Sit, Level of [place]: independent Sit to Supine, Level of [place]: independent Safety Issues: decreased use of legs for bridging/pushing, impaired trunk control for bed m obility Impairments: postural control impaired, pain, impaired balance, strength decreased Transfers Pt demos safe and indepedent transfers with cane and without AD. Bed-Chair, Level of [place]: independent Chair-Bed, Level of [place]: independent [id number], Assistive Device: none Sit-Stand, Level of [place]: modified independent Stand-Sit, Level of [place]: modified independent [id number]-[id number]-[id number], Assistive Device: cane (straight, single point) Safety Issues: balance decreased during turns, weight-shifting ability decreased, sequencin g ability decreased Impairments: impaired balance, postural control impaired, strength decreased Gait outside on grass incline, rocks and wide depth stairs. Level of [place]: modified independent Assistive Device: cane (straight, single point) Distance (feet): 1000 Gait Deviations: step length decreased, qbf-zj-lpiyx clearance decreased, weight-shifting a bility decreased Impairments: strength decreased, impaired balance, coordination impaired, postural control impaired Therapeutic Exercise outside on uneven grass and incline. mod I Other exercises (description): scifit 10 min PT Goal Review Date Most Recent Value STG Review Date 09/03/17 at 08/31/2017 1545 LTG Review Date 09/12/17 at 08/31/2017 1545 [id number] Goal Most Recent Value STG Status met at 09/02/2017 1500 STG [place] Level modified independent at 08/31/2017 1545 STG Assistive Device none at 08/31/2017 1545 [id number] Goal Most Recent Value STG Status met at 09/03/2017 0859 STG [place] Level supervised at 08/31/2017 1545 STG Assistive Device none at 08/31/2017 1545 LTG Status met at 09/07/2017 1554 LTG [place] Level independent at 08/31/2017 1545 LTG Assistive Device cane (straight, single point) at 09/03/2017 0859 Gait Goal Most Recent Value STG Status met at 09/03/2017 0859 STG [place] Level stand by assist at 08/31/2017 1545 STG Assistive Device none, cane (straight, single point) at 08/31/2017 1545 STG Distance (feet) 200' at 08/31/2017 1545 STG Comments none vs SPC at 08/31/2017 1545 LTG Status progressing at 09/08/2017 1624 LTG [place] Level independent at 08/31/2017 1545 LTG Assistive Device cane (straight, single point) at 09/03/2017 0859 Stair Goal Most Recent Value STG Status met at 09/03/2017 0859 STG [place] Level supervised at 08/31/2017 1545 STG Assistive Device 2 rails at 08/31/2017 1545 STG Number of Stairs 12 at 08/31/2017 1545 LTG Status met at 09/08/2017 1430 LTG [place] Level modified independent at 08/31/2017 1545 LTG Assistive Device 2 rails at 08/31/2017 1545 LTG Number of Stairs 12 at 08/31/2017 1545 Additional Goal #1 PT Most Recent Value STG Status not met at 09/04/2017 0944 STG Improve DGI score to 19/24 to dec.fall risk at 08/31/2017 1545 LTG Status progressing at 09/07/2017 1010 LTG mprove DGI score to 19/24 to dec.fall risk at 09/04/2017 0944 Electronically signed by: Odessa Anguiano PTA, 09/08/2017 16:28 Goal Evaluation: lan of Care - Col Odessa cotto PTA - 09/08/2017 4:22 PM PDT Problem: Patient Care Overview (Adult) Goal: Care Team Goals & Evaluation PROBLEM-RELATED GOALS: 1. Will be mod ind in room by 09/07/17 2. Will have a BM every other day by 09/04/17 3. Will have not falls during hospital stay 4. Cognitive function will return to baseline by 09/07/17 5. Pt will be independent in functional transfers and ambulation w/o AD. 7. Pt will increase use of compensatory strategies and cognitive communication functions by 09/07/2017. 8. Dennis will have breath sounds consistent with baseline function throughout stay and rev erse airway bronchospasm when indicated. Reevaluate goal by 09-09-2017. 9. Dennis will maintain a patent airway and effective airway clearance by 09-09-2017. STRATEGY TO ACHIEVE GOALS: - Encourage ambulation and have pt do all assigned therapies - Administer bowel meds if no BM by day 2 - Ensure bed alarm is on and call light is within reach. - encourage pt to express wants and ideas and give extra time if needed - Full participation in PT session in functional mobility training. - Pt will participate in speech therapy. - Administer respiratory medications as ordered and adjust with use of respiratory protocol s. - Perform airway clearance using vibratory PEP therapy. Outcome: Improving IRF Physical Therapy Plan of Care Treatment Note Summary: Dennis has been participating in physical therapy for treatment of Gait instabili ty, imapired balance, dec.functional mobility d/t CVA. Hx of multiple back surgeries and peñaloza s an implated spine stimulator for pain control.. Emphasis of session included gait,stairs, obstacles. Patient demonstrates progress towards functional goals as evidenced by 12 steps mod I, gait mod I. Remaining barriers to discharge and functional limitations include decr eased insight into safety and deficits and demonstrating need for 24/7 supervision. Dennis will benefit from continued therapeutic intervention to address ongoing impairments and increase safety and independence with activities necessary for safe discharge. Refer be low for specific details regarding functional levels. Physical Therapy Discharge Recommendations are: Recommended discharge disposition: (ILF with spouse) Post discharge physical therapy recommendation: home health Equipment Recommendations: (TBD) Planned Interventions: balance training, bed mobility training, gait training, home exerci se program, transfer training, patient/family education, strengthening, stair training, daxa r coordination training Frequency: daily (1-2x/day) Patient Status/Goals: Reflects last filed data and may be from multiple contributors. Bed Mobility Pt still requires minimally increased time and effort but no physical assist. Assistive Device: none Roll Left, Level of [place]: independent Roll Right, Level of [place]: independent Supine to Sit, Level of [place]: independent Sit to Supine, Level of [place]: independent Safety Issues: decreased use of legs for bridging/pushing, impaired trunk control for bed m obility Impairments: postural control impaired, pain, impaired balance, strength decreased Transfers Pt demos safe and indepedent transfers with cane and without AD. Bed-Chair, Level of [place]: independent Chair-Bed, Level of [place]: independent Lpt-Tuvdt-Dra, Assistive Device: none Sit-Stand, Level of [place]: modified independent Stand-Sit, Level of [place]: modified independent [id number], Assistive Device: cane (straight, single point) Safety Issues: balance decreased during turns, weight-shifting ability decreased, sequencin g ability decreased Impairments: impaired balance, postural control impaired, strength decreased Gait outside on grass incline, rocks and wide depth stairs. Level of [place]: modified independent Assistive Device: cane (straight, single point) Distance (feet): 1000 Gait Deviations: step length decreased, prc-me-ooola clearance decreased, weight-shifting a bility decreased Impairments: strength decreased, impaired balance, coordination impaired, postural control impaired Stairs no LOB, demo safe technique with AD this am session. Number of Stairs: 12 Handrail Location: right side (ascending) Level of [place]: modified independent Assistive Device: 1 rail Technique Used: step to step (descending) Safety Issues: balance decreased during turns Impairments: impaired balance, coordination impaired PT Goal Review Date Most Recent Value STG Review Date 09/03/17 at 08/31/2017 1545 LTG Review Date 09/12/17 at 08/31/2017 1545 [id number]-[id number] Goal Most Recent Value STG Status met at 09/02/2017 1500 STG [place] Level modified independent at 08/31/2017 1545 STG Assistive Device none at 08/31/2017 1545 [id number]-Bzw Goal Most Recent Value STG Status met at 09/03/2017 0859 STG [place] Level supervised at 08/31/2017 1545 STG Assistive Device none at 08/31/2017 1545 LTG Status met at 09/07/2017 1554 LTG [place] Level independent at 08/31/2017 1545 LTG Assistive Device cane (straight, single point) at 09/03/2017 0859 Gait Goal Most Recent Value STG Status met at 09/03/2017 0859 STG [place] Level stand by assist at 08/31/2017 1545 STG Assistive Device none, cane (straight, single point) at 08/31/2017 1545 STG Distance (feet) 200' at 08/31/2017 1545 STG Comments none vs SPC at 08/31/2017 1545 LTG Status progressing at 09/08/2017 1430 LTG [place] Level independent at 08/31/2017 1545 LTG Assistive Device cane (straight, single point) at 09/03/2017 0859 Stair Goal Most Recent Value STG Status met at 09/03/2017 0859 STG [place] Level supervised at 08/31/2017 1545 STG Assistive Device 2 rails at 08/31/2017 1545 STG Number of Stairs 12 at 08/31/2017 1545 LTG Status met at 09/08/2017 1430 LTG [place] Level modified independent at 08/31/2017 1545 LTG Assistive Device 2 rails at 08/31/2017 1545 LTG Number of Stairs 12 at 08/31/2017 1545 Additional Goal #1 PT Most Recent Value STG Status not met at 09/04/2017 0944 STG Improve DGI score to to dec.fall risk at 08/31/2017 1545 LTG Status progressing at 09/07/2017 1010 LTG mprove DGI score to 19/24 to dec.fall risk at 09/04/2017 0944 Electronically signed by: Odessa Anguiano PTA, 09/08/2017 16:17 Goal Evaluation: lan of Care - For christosjose antonio DEEDEE Hein - 09/08/2017 3:21 PM PDTProblem: Discharge Planning Goal: Patient will be discharged in a safe manner Outcome: Improving Patient doing well and will be ready to be discharged home tomorrow with his transport ing him. Patient will have outpatient physical therapy ordered.Electronically signed by: DEEDEE Hunt 09/08/2017 15:20 lan of Care - Sandy Valdes COTA - 09/08/2017 2:25 PM PDTFormatting of this note might be differen t from the original. Problem: Patient Care Overview (Adult) Goal: Care Team Goals & Evaluation PROBLEM-RELATED GOALS: 1. Will be mod ind in room by 09/07/17 2. Will have a BM every other day by 09/04/17 3. Will have not falls during hospital stay 4. Cognitive function will return to baseline by 09/07/17 5. Pt will be independent in functional transfers and ambulation w/o AD. 7. Pt will increase use of compensatory strategies and cognitive communication functions by 09/07/2017. 8. Dennis will have breath sounds consistent with baseline function throughout stay and rev erse airway bronchospasm when indicated. Reevaluate goal by 09-09-2017. 9. Dennis will maintain a patent airway and effective airway clearance by 09-09-2017. STRATEGY TO ACHIEVE GOALS: - Encourage ambulation and have pt do all assigned therapies - Administer bowel meds if no BM by day 2 - Ensure bed alarm is on and call light is within reach. - encourage pt to express wants and ideas and give extra time if needed - Full participation in PT session in functional mobility training. - Pt will participate in speech therapy. - Administer respiratory medications as ordered and adjust with use of respiratory protocol s. - Perform airway clearance using vibratory PEP therapy. Outcome: Improving IRF Occupational Therapy Plan of Care Treatment Note Summary: Dennis has been participating in occupational therapy for treatment of Decrease d ADL independence and functional mobility s/p admission for CVA. Hx of multiple back surg eries and has an implated spine stimulator for pain control.. Emphasis of session included laundry task. Patient demonstrates progress towards functional goals as evidenced by demons trating carry over from yesterday, by completing laundry task Mod I.. Remaining barriers to discharge and functional limitations include decreased insight into safety and deficits, de creased functional activity tolerance and demonstrating need for 24/ supervision. Dennis will benefit from continued therapeutic intervention to address ongoing impairments and increase safety and independence with activities necessary for safe discharge. Refer be low for specific details regarding functional levels. Occupational Therapy Discharge Recommendations are: Recommended discharge disposition: home with assist Post discharge occupational therapy recommendation: home health Equipment Recommendations: shower chair, grab bars Planned Interventions:ADL retraining, IADL retraining, balance training, cognitive retraini ng, neuromuscular re-education Recommended Frequency: (Rehab schedule) Patient Status/Goals: Reflects last filed data and may be from multiple contributors. IADLs Pt demonstrates good carry over with laundry tasks today. Pt reports he does not do any of the cooking at home. Laundry Training, OT Eval Level Of [place]: Laundry: modified independent Physical Assist/Nonphysical Assist: Laundry: none Assistive Device: straight cane Special Training: Completed community re-entry therapeutic activity w/ SBA/cues OT Goal Review Date Most Recent Value STG Review Date 09/04/17 at 08/31/2017 1704 LTG Review Date 09/11/17 at 08/31/2017 1704 Grooming Goal Most Recent Value STG Status met at 09/01/2017 0851 STG [place] Level supervised at 08/31/2017 1704 LTG Status met at 09/05/2017 0920 LTG [place] Level modified independent at 08/31/2017 1704 LB Dressing Goal Most Recent Value STG Status met at 09/02/2017 0906 STG [place] Level supervised at 08/31/2017 1704 LTG Status met at 09/08/2017 0743 LTG [place] Level modified independent at 08/31/2017 1704 Toilet Transfer Goal Most Recent Value STG Status met at 09/01/2017 0851 STG [place] Level supervised at 08/31/2017 1704 LTG Status met at 09/06/2017 0908 LTG [place] Level modified independent at 08/31/2017 1704 Tub/Shower Transfer Goal Most Recent Value Tub/Shower Type walk in shower stall at 09/05/2017 0920 STG Status met at 09/02/2017 0906 STG [place] Level contact guard assist at 08/31/2017 1704 STG Assistive Device shower chair, grab bars at 09/01/2017 1558 LTG Status met at 09/07/2017 0740 LTG [place] Level -- [Distant supervision] at 09/05/2017 0920 Additional Goals #1 OT Most Recent Value STG Status not met at 09/08/2017 1346 STG pt will demonstrate simple meal preparation task with min assist and v/c for safety to promote IADLs at 09/02/2017 1423 LTG Status not met at 09/08/2017 1346 LTG pt will demonstrate simple meal preparation task with superviison assist and 1 v/c for safety to promote IADLs at 09/02/2017 1423 Additional Goals #2 OT Most Recent Value LTG Status met at 09/08/2017 1346 LTG Pt will complete small laundry task w/ mod I. at 09/06/2017 0908 Electronically signed by: CHRIS Espinoza, 09/08/2017 15:52 lan of Care - Nahid Aragon, [employer] - 09/08/2017 8:48 AM PDTFormatting of this note might be different fr om the original. Problem: Patient Care Overview (Adult) Goal: Care Team Goals & Evaluation PROBLEM-RELATED GOALS: 1. Will be mod ind in room by 09/07/17 2. Will have a BM every other day by 09/04/17 3. Will have not falls during hospital stay 4. Cognitive function will return to baseline by 09/07/17 5. Pt will be independent in functional transfers and ambulation w/o AD. 7. Pt will increase use of compensatory strategies and cognitive communication functions by 09/07/2017. 8. Dennis will have breath sounds consistent with baseline function throughout stay and rev erse airway bronchospasm when indicated. Reevaluate goal by 09-09-2017. Wong Collins will maintain a patent airway and effective airway clearance by 09-09-2017. STRATEGY TO ACHIEVE GOALS: - Encourage ambulation and have pt do all assigned therapies - Administer bowel meds if no BM by day 2 - Ensure bed alarm is on and call light is within reach. - encourage pt to express wants and ideas and give extra time if needed - Full participation in PT session in functional mobility training. - Pt will participate in speech therapy. - Administer respiratory medications as ordered and adjust with use of respiratory protocol s. - Perform airway clearance using vibratory PEP therapy. Goal Evaluation: Patient in rehab, post stroke. Sating 97% on room air. BS clear and diminished in bases. D oing PEP therapy well. Good cough, non-productive. Will continue to monitor and treat as nee ded. Severity Score 5 Class 2 Severity Score 0-4 ITEM 0 1 2 3 4 2 Respiratory History No Smoking history Current tobacco use Up to 10 Pack year history. Simple home regimen Known Pulmonary Disease 20 pack year history Complex Home regimen 30+ pack year history Severe Pulmonary Disease or exacerbation 0 Surgery Status (current admission) No surgery Minor surgery Lower abdominal rib fractures Thoracic or uppe r abdominal Thoracic with pulmonary disease or Central Nervous System 1 Chest X-RAY Clear or Normal baseline Unavailable Improving/clearing Abnormal, Unilateral or mild Infiltrates or atelectasis, Chronic changes Infiltrates mild bilateral or unilateral or pleural effusions extensive Inf iltrates, atelectasis or pleural effusions, pneumothorax 0 Respiratory Pattern Regular pattern Respiratory Rate:8-20 Increased Respiratory Rate, labored Dyspnea on exertion, irregular pattern Use of accessory muscles, prolonged expirato ry phase nasal flaring Severe Dyspnea , Purse Lip Breathing, Use of accessory muscles 2 Breath Sounds Clear Diminished unilaterally Diminished bilaterally &/or crackles Wheezing or Rhonchi &/or absent unilateral Absent bilaterally 0 Cough Strong, non productive Moderate, loose, productive Weak, non-productive Weak, ineffective Non-spontaneous or may require suctioning 0 Sputum None Scant / Thin White/clear Moderate Beige/ yellow Large / Thick Dark Green/Brown Copious / Plugs Hemoptysis aliya 0 LOC Alert, oriented, cooperative Disoriented, follows commands Obtunded, arousable, follo ws commands Obtunded, uncooperative, sedated Comatose 0 Oxygen Demand Room air Baseline 1-2 liters 3-6 liters >7 Liters Oxymizer to > 55% 60% or greater Total Severity Score (SS) Class 0-3 1 4-7 2 8-11 3 12-14 4 15+ 5 lan of Care - Sandy Avila COTA - 09/08/2017 7:53 AM PDTFormatting of this note might be different fr om the original. Problem: Patient Care Overview (Adult) Goal: Care Team Goals & Evaluation PROBLEM-RELATED GOALS: 1. Will be mod ind in room by 09/07/17 2. Will have a BM every other day by 09/04/17 3. Will have not falls during hospital stay 4. Cognitive function will return to baseline by 09/07/17 5. Pt will be independent in functional transfers and ambulation w/o AD. 7. Pt will increase use of compensatory strategies and cognitive communication functions by 09/07/2017. 8. Dennis will have breath sounds consistent with baseline function throughout stay and rev erse airway bronchospasm when indicated. Reevaluate goal by 09-09-2017. 9. Dennis will maintain a patent airway and effective airway clearance by 09-09-2017. STRATEGY TO ACHIEVE GOALS: - Encourage ambulation and have pt do all assigned therapies - Administer bowel meds if no BM by day 2 - Ensure bed alarm is on and call light is within reach. - encourage pt to express wants and ideas and give extra time if needed - Full participation in PT session in functional mobility training. - Pt will participate in speech therapy. - Administer respiratory medications as ordered and adjust with use of respiratory protocol s. - Perform airway clearance using vibratory PEP therapy. Outcome: Improving IRF Occupational Therapy Plan of Care Treatment Note Summary: Dennis has been participating in occupational therapy for treatment of Decrease d ADL independence and functional mobility s/p admission for CVA. Hx of multiple back surg eries and has an implated spine stimulator for pain control.. Emphasis of session included Morning ADL's including clothing retrieval. Patient demonstrates progress towards functiona l goals as evidenced by Pt demonstrating good safety awareness with being Mod I with all mari f cares this AM. Remaining barriers to discharge and functional limitations include decreas ed insight into safety and deficits, decreased functional activity tolerance and decreased a bility to perform IADLs. Dennis will benefit from continued therapeutic intervention to address ongoing impairments and increase safety and independence with activities necessary for safe discharge. Refer be low for specific details regarding functional levels. Occupational Therapy Discharge Recommendations are: Recommended discharge disposition: home with assist Post discharge occupational therapy recommendation: home health Equipment Recommendations: shower chair, grab bars Planned Interventions:ADL retraining, IADL retraining, balance training, cognitive retraini ng, neuromuscular re-education Recommended Frequency: (Rehab schedule) Patient Status/Goals: Reflects last filed data and may be from multiple contributors. ADLs Pt Mod I for all aspects of this AM's clothing retreival, toileting, bathing, including tra nsfer, dressing, and groomiming after shower . Bathing, Level of [place]: modified independent Assistive Device: grab bars, hand-held shower head, shower chair with back Bathing Assess/Train, Position: sitting, standing Bathing Assess/Train, Impairments: impaired balance, decreased flexibility . UB Dressing, Level of [place]: independent Assistive Device: none UB Dressing Assess/Train, Position: standing UB Dressing Assess/Train, Impairments: impaired balance, motor control impaired . LB Dressing, Level of [place]: modified independent Assistive Device: none LB Dressing Assess/Train, Position: sitting, standing, supported standing LB Dressing Assess/Train, Impairments: impaired balance, motor control impaired, decreased flexibility, postural control impaired . Toileting, Level of [place]: modified independent Assistive Device: grab bar Toileting Assess/Train, Position: sitting, standing Toileting Assess/Train, Impairments: impaired balance . Grooming, Level of [place]: independent Assistive Device: none Grooming Assess/Train, Position: standing Grooming Assess/Train, Impairments: impaired balance Self-Feeding, Level of [place]: independent Assistive Device: none Self-Feeding Assess/Train, Position: sitting Self-Feeding Assess/Train, Impairments: (deficits in STM and problem solving) Transfers Pt demonstrated Mod I transfers through out morning session Bed-Chair, Level of [place]: modified independent Chair-Bed, Level of [place]: modified independent [id number], Assistive Device: none Sit-Stand, Level of [place]: modified independent Stand-Sit, Level of [place]: modified independent [id number], Assistive Device: none Toilet, Level of [place]: modified independent Toilet, Assistive Device: cane (quad), grab bars Walk-in shower, Level of [place]: modified independent Walk-in shower, Assistive Device: cane (straight, single point), grab bars, shower chair Safety Issues: balance decreased during turns, weight-shifting ability decreased, sequencin g ability decreased Impairments: impaired balance, strength decreased OT Goal Review Date Most Recent Value STG Review Date 09/04/17 at 08/31/2017 1704 LTG Review Date 09/11/17 at 08/31/2017 1704 Grooming Goal Most Recent Value STG Status met at 09/01/2017 0851 STG [place] Level supervised at 08/31/2017 1704 LTG Status met at 09/05/2017 0920 LTG [place] Level modified independent at 08/31/2017 1704 LB Dressing Goal Most Recent Value STG Status met at 09/02/2017 0906 STG [place] Level supervised at 08/31/2017 1704 LTG Status met at 09/08/2017 0743 LTG [place] Level modified independent at 08/31/2017 1704 Toilet Transfer Goal Most Recent Value STG Status met at 09/01/2017 0851 STG [place] Level supervised at 08/31/2017 1704 LTG Status met at 09/06/2017 0908 LTG [place] Level modified independent at 08/31/2017 1704 Tub/Shower Transfer Goal Most Recent Value Tub/Shower Type walk in shower stall at 09/05/2017 0920 STG Status met at 09/02/2017 0906 STG [place] Level contact guard assist at 08/31/2017 1704 STG Assistive Device shower chair, grab bars at 09/01/2017 1558 LTG Status met at 09/07/2017 0740 LTG [place] Level -- [Distant supervision] at 09/05/2017 0920 Additional Goals #1 OT Most Recent Value STG Status continued at 09/07/2017 1400 STG pt will demonstrate simple meal preparation task with min assist and v/c for safety to promote IADLs at 09/02/2017 1423 LTG Status continued at 09/07/2017 1400 LTG pt will demonstrate simple meal preparation task with superviison assist and 1 v/c for safety to promote IADLs at 09/02/2017 1423 Additional Goals #2 OT Most Recent Value LTG Status progressing at 09/07/2017 1400 LTG Pt will complete small laundry task w/ mod I. at 09/06/2017 0908 Electronically signed by: CHRIS Espinoza, 09/08/2017 14:55 lan of Care - Yusef Frederick RN - 09/08/2017 6:43 AM PDTProblem: Patient Care Overview (Adult) Goal: Care Team Goals & Evaluation PROBLEM-RELATED GOALS: 1. Will be mod ind in room by 09/07/17 2. Will have a BM every other day by 09/04/17 3. Will have not falls during hospital stay 4. Cognitive function will return to baseline by 09/07/17 5. Pt will be independent in functional transfers and ambulation w/o AD. 7. Pt will increase use of compensatory strategies and cognitive communication functions by 09/07/2017. 8. Dennis will have breath sounds consistent with baseline function throughout stay and rev erse airway bronchospasm when indicated. Reevaluate goal by 09-09-2017. 9. Dennis will maintain a patent airway and effective airway clearance by 09-09-2017. STRATEGY TO ACHIEVE GOALS: - Encourage ambulation and have pt do all assigned therapies - Administer bowel meds if no BM by day 2 - Ensure bed alarm is on and call light is within reach. - encourage pt to express wants and ideas and give extra time if needed - Full participation in PT session in functional mobility training. - Pt will participate in speech therapy. - Administer respiratory medications as ordered and adjust with use of respiratory protocol s. - Perform airway clearance using vibratory PEP therapy. Outcome: Improving Goal Evaluation: Heart regular, lungs clear, Alert and oriented, halls and room mod I, bowel tones active x 4, last BM 09/07, voids without difficulty, wood lather strong dorsi plantar strong, no neuro defic its, free of falls and calls appropriately. lan of Care - Odessa Burrell PTA - 09/07/2017 4:01 PM PDTFormatting of this note might be different from emmett pena original. Problem: Patient Care Overview (Adult) Goal: Care Team Goals & Evaluation PROBLEM-RELATED GOALS: 1. Will be mod ind in room by 09/07/17 2. Will have a BM every other day by 09/04/17 3. Will have not falls during hospital stay 4. Cognitive function will return to baseline by 09/07/17 5. Pt will be independent in functional transfers and ambulation w/o AD. 7. Pt will increase use of compensatory strategies and cognitive communication functions by 09/07/2017. 8. Dennis will have breath sounds consistent with baseline function throughout stay and rev erse airway bronchospasm when indicated. Reevaluate goal by 09-09-2017. 9. Dennis will maintain a patent airway and effective airway clearance by 09-09-2017. STRATEGY TO ACHIEVE GOALS: - Encourage ambulation and have pt do all assigned therapies - Administer bowel meds if no BM by day 2 - Ensure bed alarm is on and call light is within reach. - encourage pt to express wants and ideas and give extra time if needed - Full participation in PT session in functional mobility training. - Pt will participate in speech therapy. - Administer respiratory medications as ordered and adjust with use of respiratory protocol s. - Perform airway clearance using vibratory PEP therapy. Outcome: Improving IRF Physical Therapy Plan of Care Treatment Note Summary: Dennis has been participating in physical therapy for treatment of Gait instabili ty, imapired balance, dec.functional mobility d/t CVA. Hx of multiple back surgeries and peñaloza s an implated spine stimulator for pain control.. Emphasis of session included gait trainin g on uneven surfaces. Patient demonstrates progress towards functional goals as evidenced b y grassy steep and gradual inclines, no LOB. . Remaining barriers to discharge and function al limitations include decreased insight into safety and deficits and demonstrating need for 24/7 supervision. Dennis will benefit from continued therapeutic intervention to address ongoing impairments and increase safety and independence with activities necessary for safe discharge. Refer be low for specific details regarding functional levels. Physical Therapy Discharge Recommendations are: Recommended discharge disposition: (ILF with spouse) Post discharge physical therapy recommendation: home health Equipment Recommendations: (TBD) Planned Interventions: balance training, bed mobility training, gait training, home exerci se program, transfer training, patient/family education, strengthening, stair training, daxa r coordination training Frequency: daily (1-2x/day) Patient Status/Goals: Reflects last filed data and may be from multiple contributors. Bed Mobility Pt still requires minimally increased time and effort but no physical assist. Assistive Device: none Roll Left, Level of [place]: modified independent Roll Right, Level of [place]: modified independent Supine to Sit, Level of [place]: modified independent Sit to Supine, Level of [place]: modified independent Safety Issues: decreased use of legs for bridging/pushing, impaired trunk control for bed m obility Impairments: postural control impaired, pain, impaired balance, strength decreased Transfers Pt demos safe and indepedent transfers with cane and without AD. Bed-Chair, Level of [place]: modified independent Chair-Bed, Level of [place]: modified independent [id number]-Cuk, Assistive Device: none Sit-Stand, Level of [place]: modified independent Stand-Sit, Level of [place]: modified independent Nox-Sobdu-Ooe, Assistive Device: none Safety Issues: balance decreased during turns, weight-shifting ability decreased, sequencin g ability decreased Impairments: impaired balance, postural control impaired, strength decreased Gait outside on grass incline, and steps. No LOB on uneven ground used spc. Level of [place]: supervised Assistive Device: cane (straight, single point) Distance (feet): 1000 Gait Deviations: step length decreased, [id number] clearance decreased, weight-shifting a bility decreased Impairments: strength decreased, impaired balance, coordination impaired, postural control impaired Stairs no LOB, demo safe technique with AD this am session. Number of Stairs: 12 Handrail Location: right side (ascending) Level of [place]: supervised Assistive Device: 1 rail Technique Used: step over step (descending), step over step (ascending) Safety Issues: balance decreased during turns Impairments: impaired balance, coordination impaired Functional Endurance multiple coughing spells. PT Goal Review Date Most Recent Value STG Review Date 09/03/17 at 08/31/2017 1545 LTG Review Date 09/12/17 at 08/31/2017 1545 [id number] Goal Most Recent Value STG Status met at 09/02/2017 1500 STG [place] Level modified independent at 08/31/2017 1545 STG Assistive Device none at 08/31/2017 1545 [id number] Goal Most Recent Value STG Status met at 09/03/2017 0859 STG [place] Level supervised at 08/31/2017 1545 STG Assistive Device none at 08/31/2017 1545 LTG Status met at 09/07/2017 1554 LTG [place] Level independent at 08/31/2017 1545 LTG Assistive Device cane (straight, single point) at 09/03/2017 0859 Gait Goal Most Recent Value STG Status met at 09/03/2017 0859 STG [place] Level stand by assist at 08/31/2017 1545 STG Assistive Device none, cane (straight, single point) at 08/31/2017 1545 STG Distance (feet) 200' at 08/31/2017 1545 STG Comments none vs SPC at 08/31/2017 1545 LTG Status progressing at 09/07/2017 1554 LTG [place] Level independent at 08/31/2017 1545 LTG Assistive Device cane (straight, single point) at 09/03/2017 0859 Stair Goal Most Recent Value STG Status met at 09/03/2017 0859 STG [place] Level supervised at 08/31/2017 1545 STG Assistive Device 2 rails at 08/31/2017 1545 STG Number of Stairs 12 at 08/31/2017 1545 LTG Status progressing at 09/07/2017 1554 LTG [place] Level modified independent at 08/31/2017 1545 LTG Assistive Device 2 rails at 08/31/2017 1545 LTG Number of Stairs 12 at 08/31/2017 1545 Additional Goal #1 PT Most Recent Value STG Status not met at 09/04/2017 0944 STG Improve DGI score to 1924 to dec.fall risk at 08/31/2017 1545 LTG Status progressing at 09/07/2017 1010 LTG mprove DGI score to 19/24 to dec.fall risk at 09/04/2017 0944 Electronically signed by: Odessa Anguiano PTA, 09/07/2017 15:59 Goal Evaluation: lan of Care - Dayanna East RN - 09/07/2017 3:42 PM PDTProblem: Patient Care Overview (Adult) Goal: Care Team Goals & Evaluation PROBLEM-RELATED GOALS: 1. Will be mod ind in room by 09/07/17 2. Will have a BM every other day by 09/04/17 3. Will have not falls during hospital stay 4. Cognitive function will return to baseline by 09/07/17 5. Pt will be independent in functional transfers and ambulation w/o AD. 7. Pt will increase use of compensatory strategies and cognitive communication functions by 09/07/2017. 8. Dennis will have breath sounds consistent with baseline function throughout stay and rev erse airway bronchospasm when indicated. Reevaluate goal by 09-09-2017. 9. Dennis will maintain a patent airway and effective airway clearance by 09-09-2017. STRATEGY TO ACHIEVE GOALS: - Encourage ambulation and have pt do all assigned therapies - Administer bowel meds if no BM by day 2 - Ensure bed alarm is on and call light is within reach. - encourage pt to express wants and ideas and give extra time if needed - Full participation in PT session in functional mobility training. - Pt will participate in speech therapy. - Administer respiratory medications as ordered and adjust with use of respiratory protocol s. - Perform airway clearance using vibratory PEP therapy. Outcome: Improving Goal Evaluation: Jin is mod independent in his room. BMs today and yesterday. No falls. Continues to use o ne-point cane for ambulation. A & O x4 with occasional confusion. Airway patent and lungs cl ear in all qureshi. Worked with PT, OT and LEARNING SPECIALIST today. Jin states that he would like to go lori e as soon as possible. lan of Care - [place] Dayanna casillas OT - 09/07/2017 2:07 PM PDTFormatting of this note might be different fro m the original. Problem: Patient Care Overview (Adult) Goal: Care Team Goals & Evaluation PROBLEM-RELATED GOALS: 1. Will be mod ind in room by 09/07/17 2. Will have a BM every other day by 09/04/17 3. Will have not falls during hospital stay 4. Cognitive function will return to baseline by 09/07/17 5. Pt will be independent in functional transfers and ambulation w/o AD. 7. Pt will increase use of compensatory strategies and cognitive communication functions by 09/07/2017. 8. Dennis will have breath sounds consistent with baseline function throughout stay and rev erse airway bronchospasm when indicated. Reevaluate goal by 09-09-2017. 9. Dennis will maintain a patent airway and effective airway clearance by 09-09-2017. STRATEGY TO ACHIEVE GOALS: - Encourage ambulation and have pt do all assigned therapies - Administer bowel meds if no BM by day 2 - Ensure bed alarm is on and call light is within reach. - encourage pt to express wants and ideas and give extra time if needed - Full participation in PT session in functional mobility training. - Pt will participate in speech therapy. - Administer respiratory medications as ordered and adjust with use of respiratory protocol s. - Perform airway clearance using vibratory PEP therapy. Outcome: Improving IRF Occupational Therapy Plan of Care Treatment Note Summary: Repeated a laundry task w/ good outcome. Pt had good recall of the washer's use w/ only 1 leading prompt. Mobilizing w/ cane, c/o R hand pain on posterior and CMC joint a felipe. "It hurts like the dickens." Stated the kinesiotaping applied this AM helped only min imally. Modified the neoprene thumb spica @ the thumb and palmar area, cutting away some ma terial to allow increased mobility. Applied Dycem to cane handle for improved [place] seamer. Pt amb ulated w/ both in place w/ improved technique. Pt reported some reduction in pain in R hand . Will monitor through the afternoon. Occupational Therapy Discharge Recommendations are: Recommended discharge disposition: home with assist Post discharge occupational therapy recommendation: home health Equipment Recommendations: shower chair, grab bars Planned Interventions:ADL retraining, IADL retraining, balance training, cognitive retraini ng, neuromuscular re-education Recommended Frequency: (Rehab schedule) Patient Status/Goals: Reflects last filed data and may be from multiple contributors. IADLs Stripped bed, bundled sheets/etc, and carried to the washer. 1 posterior stumble @ dryer, no LOB and he recovered. Placed sheets into washer. 1 leading prompt to open detergent ella wer. Afterwards he appropriately managed washer recalling its process. Asked appropriate q uestions about water temp etc then accurately changed the temp. Laundry Training, OT Eval Level Of [place]: Laundry: verbal cues required Physical Assist/Nonphysical Assist: Laundry: none Assistive Device: straight cane Cognitive Improved recall of new tasks learned yesterday. Pt recalled amount of detergent used for l aundry yesterday in order to ask if the same amount or more would be indicated for the load he placed today. OT Goal Review Date Most Recent Value STG Review Date 09/04/17 at 08/31/2017 1704 LTG Review Date 09/11/17 at 08/31/2017 1704 Additional Goals #2 OT Most Recent Value LTG Status progressing at 09/07/2017 1400 LTG Pt will complete small laundry task w/ mod I. at 09/06/2017 0908 Electronically signed by: Dayanna Allison, OT, 09/07/2017 14:02 lan of Care - Ham byJackeline, Speech Pathologist - 09/07/2017 12:37 PM PDTFormatting of this note might be di fferent from the original. Problem: Patient Care Overview (Adult) Goal: Care Team Goals & Evaluation PROBLEM-RELATED GOALS: 1. Will be mod ind in room by 09/07/17 2. Will have a BM every other day by 09/04/17 3. Will have not falls during hospital stay 4. Cognitive function will return to baseline by 09/07/17 5. Pt will be independent in functional transfers and ambulation w/o AD. 7. Pt will increase use of compensatory strategies and cognitive communication functions by 09/07/2017. 8. Dennis will have breath sounds consistent with baseline function throughout stay and rev erse airway bronchospasm when indicated. Reevaluate goal by 09-09-2017. 9. Dennis will maintain a patent airway and effective airway clearance by 09-09-2017. STRATEGY TO ACHIEVE GOALS: - Encourage ambulation and have pt do all assigned therapies - Administer bowel meds if no BM by day 2 - Ensure bed alarm is on and call light is within reach. - encourage pt to express wants and ideas and give extra time if needed - Full participation in PT session in functional mobility training. - Pt will participate in speech therapy. - Administer respiratory medications as ordered and adjust with use of respiratory protocol s. - Perform airway clearance using vibratory PEP therapy. Outcome: Improving IRF Speech Therapy Plan of Care Treatment Note Summary: Pt seen sitting upright in chair at bedside for speech therapy treatment s/p admi t to IRF following CVA. Pt continues to present with marked memory loss, decreased ability t o make judgments, and decreased ability to function independently. Pt participated in struct ured cognitive stimulation tasks targeting delayed memory, attention, following directions. Pt able to complete with 70% accuracy. Language tasks also completed. Pt needed redirection occasionally. Pt wears hearing aids in both ears and doesn't hear everything someone says at times. LEARNING SPECIALIST discussed with pt using compensatory strategies to increase conversation ability - clarification, repetition, and requesting partner to speak louder. LEARNING SPECIALIST discussed with pt u sing compensatory strategies for improved attention and memory. Pt reports limited cognitive stimulation activities or hobbies and could not explain typical daily activities. LEARNING SPECIALIST rec's continued cognitive linguistic therapies to address attention, memory, word finding, and co mpensatory strategies for improved memory and attention. Speech Language Pathology Discharge Recommendations are: Recommended discharge disposition: other (see comments) (TBD) Post discharge speech language pathology recommendation: continue LEARNING SPECIALIST tx for cognitive-sebas guistic Planned Interventions: compensatory strategies, patient/caregiver education, cognitive sti mulation, memory, attention Recommended Frequency: 3 times/wk, 4 times/wk Patient Status/Goals: Reflects last filed data and may be from multiple contributors. Swallow Recommendations Recommended Solid Texture: regular Recommended Liquid Texture: thin liquids Recommended Medication Delivery: whole pills with thin liquids Recommended Feeding/Eating Techniques: alternate between small bites and sips of food/liqui d, oral care before and after each meal, maintain upright posture during/after eating for 30 mins, one small sip or bite at a time, slow rate, limit distractions Cognitive MoCA score of 14/30 Mood/Behavior: calm, cooperative Speech: spontaneous, logical, clear Follows Commands/Answers Questions: needs repetition, needs cueing, able to follow single-s tep instructions Personal Safety: decreased awareness, need for safety, decreased insight to deficits, impul sive Short/Hourly Shift Manager Memory: decreased recall, recent events, moderate impairment, short term me priya, mild impairment, prison memory Executive Function Skills: moderate impairment, impulsivity, insight/awareness issues Cognition Goal Most Recent Value STG Status continued at 09/07/2017 1050 STG Pt will increase immediate memory skills with 80% accuracy at 09/07/2017 1050 Additional Goals #1 LEARNING SPECIALIST Most Recent Value STG Status continued at 09/07/2017 1050 STG Pt will increase use of compensatory strategies to 75% accuracy at 09/07/2017 1050 Additional Goals #2 LEARNING SPECIALIST Most Recent Value STG Status continued at 09/07/2017 1050 STG Pt will increase focused attention to 80% accuracy. at 09/07/2017 1050 Electronically signed by: Jackeline Bentley, Speech Pathologist, 09/07/2017 12:26 lan o f Care - Odessa Anguiano, CITY CLERK - 09/07/2017 10:17 AM PDTFormatting of this note might be di fferent from the original. Problem: Patient Care Overview (Adult) Goal: Care Team Goals & Evaluation PROBLEM-RELATED GOALS: 1. Will be mod ind in room by 09/07/17 2. Will have a BM every other day by 09/04/17 3. Will have not falls during hospital stay 4. Cognitive function will return to baseline by 09/07/17 5. Pt will be independent in functional transfers and ambulation w/o AD. 7. Pt will increase use of compensatory strategies and cognitive communication functions by 09/07/2017. 8. Dennis will have breath sounds consistent with baseline function throughout stay and rev erse airway bronchospasm when indicated. Reevaluate goal by 09-09-2017. 9. Dennis will maintain a patent airway and effective airway clearance by 09-09-2017. STRATEGY TO ACHIEVE GOALS: - Encourage ambulation and have pt do all assigned therapies - Administer bowel meds if no BM by day 2 - Ensure bed alarm is on and call light is within reach. - encourage pt to express wants and ideas and give extra time if needed - Full participation in PT session in functional mobility training. - Pt will participate in speech therapy. - Administer respiratory medications as ordered and adjust with use of respiratory protocol s. - Perform airway clearance using vibratory PEP therapy. Outcome: Unchanged IRF Physical Therapy Plan of Care Treatment Note Summary: Dennis has been participating in physical therapy for treatment of Gait instabili ty, imapired balance, dec.functional mobility d/t CVA. Hx of multiple back surgeries and peñaloza s an implated spine stimulator for pain control.. Emphasis of session included balance and strengthening. Patient demonstrates progress towards functional goals as evidenced by clock stepping with LOB but no falls.. Remaining barriers to discharge and functional limitation s include decreased insight into safety and deficits and demonstrating need for 24/7 supervi brianna. Dennis will benefit from continued therapeutic intervention to address ongoing impairments and increase safety and independence with activities necessary for safe discharge. Refer be low for specific details regarding functional levels. Physical Therapy Discharge Recommendations are: Recommended discharge disposition: (ILF with spouse) Post discharge physical therapy recommendation: home health Equipment Recommendations: (TBD) Planned Interventions: balance training, bed mobility training, gait training, home exerci se program, transfer training, patient/family education, strengthening, stair training, daxa r coordination training Frequency: daily (1-2x/day) Patient Status/Goals: Reflects last filed data and may be from multiple contributors. Bed Mobility Pt still requires minimally increased time and effort but no physical assist. Assistive Device: none Roll Left, Level of [place]: modified independent Roll Right, Level of [place]: modified independent Supine to Sit, Level of [place]: modified independent Sit to Supine, Level of [place]: modified independent Safety Issues: decreased use of legs for bridging/pushing, impaired trunk control for bed m obility Impairments: postural control impaired, pain, impaired balance, strength decreased Transfers Pt demos safe and indepedent transfers with cane and without AD. Bed-Chair, Level of [place]: modified independent Chair-Bed, Level of [place]: modified independent Ted-[id number]-Jkw, Assistive Device: none Sit-Stand, Level of [place]: modified independent Stand-Sit, Level of [place]: modified independent Cvc-[id number]-Tuo, Assistive Device: none Safety Issues: balance decreased during turns, weight-shifting ability decreased, sequencin g ability decreased Impairments: impaired balance, postural control impaired, strength decreased Gait Gait training without AD; focus on quick turns, head movements, side stepping, backwards wa lking (both combined with mental or physical dual task), catch/throw while sidestepping and walking backwards, uneven surface gait, etc. Level of [place]: supervised Assistive Device: cane (straight, single point) Distance (feet): 450 Gait Deviations: step length decreased, qyg-uc-vbisg clearance decreased, weight-shifting a bility decreased Impairments: strength decreased, impaired balance, coordination impaired, postural control impaired Stairs no LOB, demo safe technique with AD this am session. Number of Stairs: 12 Handrail Location: right side (ascending) Level of [place]: modified independent Assistive Device: 1 rail Technique Used: step over step (descending), step over step (ascending) Safety Issues: balance decreased during turns Impairments: impaired balance, coordination impaired Therapeutic Exercise Other exercises (description): scifit 10 min. Sit stand holding 3lb ball x 10, fatigued after set. Functional Endurance WFL; pt still requires seated rests due to fatigue at times during session. Also with multi ple coughing spells. PT Goal Review Date Most Recent Value STG Review Date 09/03/17 at 08/31/2017 1545 LTG Review Date 09/12/17 at 08/31/2017 1545 Ailjui-Dgz-Jjzavy Goal Most Recent Value STG Status met at 09/02/2017 1500 STG [place] Level modified independent at 08/31/2017 1545 STG Assistive Device none at 08/31/2017 1545 Shj-Hroqe-Yxw Goal Most Recent Value STG Status met at 09/03/2017 0859 STG [place] Level supervised at 08/31/2017 1545 STG Assistive Device none at 08/31/2017 1545 LTG Status progressing at 09/07/2017 1010 LTG [place] Level independent at 08/31/2017 1545 LTG Assistive Device cane (straight, single point) at 09/03/2017 0859 Gait Goal Most Recent Value STG Status met at 09/03/2017 0859 STG [place] Level stand by assist at 08/31/2017 1545 STG Assistive Device none, cane (straight, single point) at 08/31/2017 1545 STG Distance (feet) 200' at 08/31/2017 1545 STG Comments none vs SPC at 08/31/2017 1545 LTG Status progressing at 09/07/2017 1010 LTG [place] Level independent at 08/31/2017 1545 LTG Assistive Device cane (straight, single point) at 09/03/2017 0859 Stair Goal Most Recent Value STG Status met at 09/03/2017 0859 STG [place] Level supervised at 08/31/2017 1545 STG Assistive Device 2 rails at 08/31/2017 1545 STG Number of Stairs 12 at 08/31/2017 1545 LTG Status progressing at 09/07/2017 1010 LTG [place] Level modified independent at 08/31/2017 1545 LTG Assistive Device 2 rails at 08/31/2017 1545 LTG Number of Stairs 12 at 08/31/2017 1545 Additional Goal #1 PT Most Recent Value STG Status not met at 09/04/2017 0944 STG Improve DGI score to to dec.fall risk at 08/31/2017 1545 LTG Status progressing at 09/07/2017 1010 LTG mprove DGI score to 19/24 to dec.fall risk at 09/04/2017 0944 Electronically signed by: Odessa Anguiano PTA, 09/07/2017 10:15 Goal Evaluation: lan of Care - Iggy Kidd, ALUMNI RELATIONS OFFICER - 09/07/2017 9:48 AM PDT Problem: Patient Care Overview (Adult) Goal: Care Team Goals & Evaluation PROBLEM-RELATED GOALS: 1. Will be mod ind in room by 09/07/17 2. Will have a BM every other day by 09/04/17 3. Will have not falls during hospital stay 4. Cognitive function will return to baseline by 09/07/17 5. Pt will be independent in functional transfers and ambulation w/o AD. 7. Pt will increase use of compensatory strategies and cognitive communication functions by 09/07/2017. 8. Dennis will have breath sounds consistent with baseline function throughout stay and rev erse airway bronchospasm when indicated. Reevaluate goal by 09-09-2017. 9. Dennis will maintain a patent airway and effective airway clearance by 09-09-2017. STRATEGY TO ACHIEVE GOALS: - Encourage ambulation and have pt do all assigned therapies - Administer bowel meds if no BM by day 2 - Ensure bed alarm is on and call light is within reach. - encourage pt to express wants and ideas and give extra time if needed - Full participation in PT session in functional mobility training. - Pt will participate in speech therapy. - Administer respiratory medications as ordered and adjust with use of respiratory protocol s. - Perform airway clearance using vibratory PEP therapy. Outcome: Improving Goal Evaluation: Les was 100% on RA with clear BS and no reported SOB. He took scheduled Albuterol well wit h Peak Flows 240/320. Severity Score 2 Class 1 Severity Score 0-4 ITEM 0 1 2 3 4 1 Respiratory History No Smoking history Up to 10 Pack year history. Simple home regimen Known Pulmonary Disease 20 pack year history Complex Home regimen 30+ pack year history Severe Pulmonary Disease or exacerbation 0 Surgery Status (current admission) No surgery Minor surgery Lower abdominal rib fractures Thoracic or uppe r abdominal Thoracic with pulmonary disease or Central Nervous System 1 Chest X-RAY Clear or Normal baseline Unavailable Improving/clearing Abnormal, Unilateral or mild Infiltrates or atelectasis, Chronic changes Infiltrates mild bilateral or unilateral or pleural effusions extensive Inf iltrates, atelectasis or pleural effusions, pneumothorax 0 Respiratory Pattern Regular pattern Respiratory Rate:8-20 Increased Respiratory Rate, labored Dyspnea on exertion, irregular pattern Use of accessory muscles, prolonged expirato ry phase nasal flaring Severe Dyspnea , Purse Lip Breathing, Use of accessory muscles 0 Breath Sounds Clear Diminished unilaterally Diminished bilaterally &/or crackles Wheezing or Rhonchi &/or absent unilateral Absent bilaterally 0 Cough Strong, non productive Moderate, loose, productive Weak, non-productive Weak, ineffective Non-spontaneous or may require suctioning 0 Sputum None Scant / Thin White/clear Moderate Beige/ yellow Large / Thick Dark Green/Brown Copious / Plugs Hemoptysis ailya 0 LOC Alert, oriented, cooperative Disoriented, follows commands Obtunded, arousable, follo ws commands Obtunded, uncooperative, sedated Comatose 0 Oxygen Demand Room air Baseline 1-2 liters 3-6 liters >7 Liters Oxymizer to > 55% 60% or greater Total Severity Score (SS) Class 0-3 1 4-7 2 8-11 3 12-14 4 15+ 5 atient Care Kelly Rowell, Juan Foote MD - 09/07/2017 8:51 AM PDTFormatting of this note might be dif ferent from the original. [facility] Inpatient Rehabilitation Facility Individualized Overall Plan of Care Weekly Team Conference Patient Identification Dennis Cabrera is a 82 y.o. male. : 1935 Admit Date: 08/31/2017 Attending Provider: Juan Rowell MD Primary Care Physician: Josr Henriquez MD Admitting Diagnosis: CVA Team Conference Date: 09/08/2017 Medical Prognosis and need for Rehabilitation Physician oversight and anticipated Rehabilit ation Physician interventions: [place] for functional progress is good. Physician Summary: I did coordinate with the full team regarding the above plan and continue full rehabilitati on program. Please see rehabilitation team notes. The patient is seen and clinical status addressed in collaboration with the rehab team. I met with the charge nurse and discussed the overall nursing problematic issues. We also fo llowed up with the patient's floor nurse, discussing the above, as well as addressing the sp ecific nursing patient care focus of the day. He is doing very well. He is continent of bowel and bladder. Meds N data reviewed. We'll recheck lab in the morning. Also there is no significant pain complaints. Will decrease his Neurontin to 600 mg in the evening and recommended continue work on tapering it on outpatient basis. The full medical rehabilitation team did meet today in conference. The patient's pertinent active medical problems, comorbidities, and medical rehabilitation needs were discussed and shared with the team members. I opine that there is a reasonable expectation that due to the complexity of our patient's nursing/medical management and rehabilitation needs requires an inpatient stay, including a physician lead and coordinated interdisciplinary team approach to the delivery of rehabilita tion care. I chaired the Rehabilitative Team Conference and led the team's discussion. We discussed and assessed our patient's current status and barriers; noting tolerance and compliance progress towards the rehabilitation goals. The full Rehab Team collaborated; considering and addressing the patient's current toleranc e and compliance with the rehabilitation treatment noting any issues and seeking resolution of any problems/barriers impeding progress towards goals. I garnered the information from all of the Medical Rehabilitation cafe team member's assessments and reports as we synthesized and advanced the overall plan of care. The validity of our re habilitation goals were reassessed as we monitored and revised the treatment plan as indicat ed. She is doing very well with his rehab program. He is improved significantly regards to his safety awareness. He is now modified independent with his self-care skills including bathroom skills. Transfers are modified independent. Sampling well on the nursing unit with single-point ca ne. Given his improvement recommending discharge to home tomorrow. Going through final review and training the team today in preparation for this. We are add ressing home program. His will be her tomorrow and review this plan and home program with the 2 of them. Plan is to discharge tomorrow home program and outpatient therapy with physical therapy. Following team conference met with the patient and reviewed the above. Rehabilitation Nursing Summary: Pt is alert and oriented with occ forgetfulness. Pt planni ng to dc to home with on Thursday. Has been cleared to be Mod Ind in room with cane bu t will forget to take it at times. Skin is intact. Voiding without difficulty. Has been cont inent now that he is independent. Having regular bm's. Cont to have intermittent cough. RT d oing vest percussion and treatments. Has denied pain. Safety Management: Elopement/wander risk: No General Risk Interventions: Cognitive Impairment Interventions: Altered Eliminations/Toileting interventions: Safety Management Goal: will have no falls in hospital Pain Management: Pain ratin-2/10 Skin Management: David Score: 21 Skin Management Goal: will have no skin breakdown during hospital Bladder Management: FIM BladderScore: 6; Evidence: 6 Medication [place] # Bladder accidents last 7 days: 0 Bladder Management Goal: will be continent of bladder Bowel Management: FIM Bowel Score: 6; Evidence: 6 Medication [place] # Bowel accidents last 7 days: 0 Bowel Management Goal: will have a BM every other day Nutrition Management: Dennis is eating 100% of a lowfat low cholesterol diet. Fluid intake also has been good, generally >2000ml/day. Discharge is planned for tomorrow. Mobility Summary: Dennis is amb with a SPC for distances greater than 150ft daily. He h as had decreased LOB when he is focused on the task. He gets distracted and has small LOB w ith multitasking. He continues to need supervision for safety and cognition/path finding. He is amb 12 steps with supervision. Pt has worked on many balance tasks during his stay in rehab. He has not had a fall but multiple LOB with with high level tasks. Pt continues to demonstrate memory issues. Transfers FIM Bed/Chair/Wheelchair Score: 6; Evidence:6 Extra Time, 6 Walker/Crutch/Cane FIM Toilet Transfer Score: 6; Evidence: 6 Grab Bar [place], 6 Amb Device [place] FIM Tub/Shower Transfer Score: 5 (Distant); Evidence: 6 Extra Time, 6 Shower Chair [place] Locomotion FIM Walk Score: 5; Evidence: 5 Supervise/150 ft+ FIM Distance Walked(feet): 150 feet FIM Wheelchair Score: ; Evidence: FIM Stairs Score :5; Evidence: 5 Safety Sup 12-14 Stairs, Handrail PT GOALS PT Goal Review Date Most Recent Value STG Review Date 09/03/17 at 08/31/2017 1545 LTG Review Date 09/12/17 at 08/31/2017 1545 [id number] Goal Most Recent Value STG Status met at 09/02/2017 1500 STG [place] Level modified independent at 08/31/2017 1545 STG Assistive Device none at 08/31/2017 1545 [id number] Goal Most Recent Value STG Status met at 09/03/2017 0859 STG [place] Level supervised at 08/31/2017 1545 STG Assistive Device none at 08/31/2017 1545 LTG Status progressing at 09/07/2017 1010 LTG [place] Level independent at 08/31/2017 1545 LTG Assistive Device cane (straight, single point) at 09/03/2017 0859 Gait Goal Most Recent Value STG Status met at 09/03/2017 0859 STG [place] Level stand by assist at 08/31/2017 1545 STG Assistive Device none, cane (straight, single point) at 08/31/2017 1545 STG Distance (feet) 200' at 08/31/2017 1545 STG Comments none vs SPC at 08/31/2017 1545 LTG Status progressing at 09/07/2017 1010 LTG [place] Level independent at 08/31/2017 1545 LTG Assistive Device cane (straight, single point) at 09/03/2017 0859 Stair Goal Most Recent Value STG Status met at 09/03/2017 0859 STG [place] Level supervised at 08/31/2017 1545 STG Assistive Device 2 rails at 08/31/2017 1545 STG Number of Stairs 12 at 08/31/2017 1545 LTG Status progressing at 09/07/2017 1010 LTG [place] Level modified independent at 08/31/2017 1545 LTG Assistive Device 2 rails at 08/31/2017 1545 LTG Number of Stairs 12 at 08/31/2017 1545 Additional Goal #1 PT Most Recent Value STG Status not met at 09/04/2017 0944 STG Improve DGI score to to dec.fall risk at 08/31/2017 1545 LTG Status progressing at 09/07/2017 1010 LTG mprove DGI score to 24 to dec.fall risk at 09/04/2017 0944 Self Care Summary: Patient demonstrates progress towards functional goals as evidenced by Pt continues to demonstrate activity from distant (safety)supervision with bathing and LB d ressing needing occasional VC for safety awareness to Mod I UB dressing, grooming, and trans fers. Remaining barriers to discharge and functional limitations include decreased insight into safety and deficits during ADL's, decreased ability to perform IADLs, decreased ability to perform medication management and demonstrating need for 01/12 supervision. FIM Eating Score: 7; Evidence: FIM Grooming Score: 6; Evidence: 6 Extra Time FIM Bathing Score: 5 (Distant); Evidence: 6 Extra Time FIM Dressing Upper Body Score: 6; Evidence:6 Extra Time FIM Dressing Lower Body Score: 5 (Distant); Evidence:6 Extra Time FIM Toileting Score: 6; Evidence:6 Grab Bar OT Goals OT Goal Review Date Most Recent Value STG Review Date 09/04/17 at 08/31/2017 1704 LTG Review Date 09/11/17 at 08/31/2017 1704 Grooming Goal Most Recent Value STG Status met at 09/01/2017 0851 STG [place] Level supervised at 08/31/2017 1704 LTG Status met at 09/05/2017 0920 LTG [place] Level modified independent at 08/31/2017 1704 LB Dressing Goal Most Recent Value STG Status met at 09/02/2017 0906 STG [place] Level supervised at 08/31/2017 1704 LTG Status progressing at 09/07/2017 0740 LTG [place] Level modified independent at 08/31/2017 1704 Toilet Transfer Goal Most Recent Value STG Status met at 09/01/2017 0851 STG [place] Level supervised at 08/31/2017 1704 LTG Status met at 09/06/2017 0908 LTG [place] Level modified independent at 08/31/2017 1704 Tub/Shower Transfer Goal Most Recent Value Tub/Shower Type walk in shower stall at 09/05/2017 0920 STG Status met at 09/02/2017 0906 STG [place] Level contact guard assist at 08/31/2017 1704 STG Assistive Device shower chair, grab bars at 09/01/2017 1558 LTG Status met at 09/07/2017 0740 LTG [place] Level -- [Distant supervision] at 09/05/2017 0920 Additional Goals #1 OT Most Recent Value STG Status continued at 09/06/2017 0908 STG pt will demonstrate simple meal preparation task with min assist and v/c for safety to promote IADLs at 09/02/2017 1423 LTG Status continued at 09/06/2017 0908 LTG pt will demonstrate simple meal preparation task with superviison assist and 1 v/c for safety to promote IADLs at 09/02/2017 1423 Additional Goals #2 OT Most Recent Value LTG Status progressing at 09/06/2017 1846 LTG Pt will complete small laundry task w/ mod I. at 09/06/2017 0908 Cognition/Communication Summary: Pt continues to present with memory loss, decreased abilit y to make judgments, and decreased ability to function independently. Pt participated in str uctured cognitive stimulation tasks targeting delayed memory, attention, following direction s. Language tasks also completed. Pt needed redirection occasionally. Pt wears hearing aids in both ears and doesn't hear everything someone says at times. LEARNING SPECIALIST discussed with pt using compensatory strategies to increase conversation ability- clarification, repetition, and req uesting partner to speak louder. LEARNING SPECIALIST discussed with pt using compensatory strategies for imp roved attention and memory. Pt reports limited cognitive stimulation activities or hobbies a nd could not explain typical daily activities. LEARNING SPECIALIST rec's continued cognitive linguistic ther apies to address attention, memory, word finding, and compensatory strategies for improved m abhay and attention. Cognitive stimulation. Memory recall. Compensatory strategies. Attention tasks. Pt educati on. Problem Solving Score: 4; Evidence: 4 Daily Prbs 75-90% Memory Score: 4; Evidence: 4 Recalls 75-90% Comprehension/AuditoryScore: 5; Evidence: 6 Needs Extra Time Verbal Expression Score: 5; Evidence: 5 Express 91-99% Social Interaction Score: 5; Evidence:5 Approp 91-99% Dysphagia/Swallow: Regular textures. Thin liquids LEARNING SPECIALIST Goals Cognition Goal Most Recent Value STG Status continued at 09/07/2017 1050 STG Pt will increase immediate memory skills with 80% accuracy at 09/07/2017 1050 Additional Goals #1 LEARNING SPECIALIST Most Recent Value STG Status continued at 09/07/2017 1050 STG Pt will increase use of compensatory strategies to 75% accuracy at 09/07/2017 1050 Additional Goals #2 LEARNING SPECIALIST Most Recent Value STG Status continued at 09/07/2017 1050 STG Pt will increase focused attention to 80% accuracy. at 09/07/2017 1050 Leisure/Community: Therapeutic day pass appropriate:No Education Caregiver training initiated: Yes Sexuality education initiated: No Other education initiated (see Patient Education activity): yes Recommended Discharge Equipment (TBD), shower chair, grab bars Barriers to Discharge Barriers to Discharge: Decreased insight to safety and deficits Barrier Resolution Plan: Continued therapy and family teaching that has been completed. Post-Discharge Plan Setting:Home with his in [place] Level of Assist Recommended for Discharge: Modified independent to standby assist for ramon stovall, transfers and ADLs Anticipate post discharge services: Home health therapy Prosthetics/Orthotics therapeutic interventions recommended: no Admission Date: 08/31/2017 ELOS: 1 more day Projected DC Date: September 09 Team Goals: medically stable and safe for discharge to home. Complete final training on home program with patient and his . Discharge to home and outpatient therapy. Schedule follow-up appointments with his community physicians. Participants: MD: Dr. Juan Rowell RN: MIESHA Orona PT: Anuradha Tang, PT; Odessa Anguiano CITY CLERK OT: Natasha Raygoza OTR; CHRIS Mondragon/L LEARNING SPECIALIST: BRANDON Lowry CM/SW: DEEDEE Delcid Following interdisciplinary discussion and planning, I fully agree with the above. lan of Care - Sandy Valdes COTA - 09/07/2017 8:00 AM PDTFormatting of this note might be different fro m the original. Problem: Patient Care Overview (Adult) Goal: Care Team Goals & Evaluation PROBLEM-RELATED GOALS: 1. Will be mod ind in room by 09/07/17 2. Will have a BM every other day by 09/04/17 3. Will have not falls during hospital stay 4. Cognitive function will return to baseline by 09/07/17 5. Pt will be independent in functional transfers and ambulation w/o AD. 7. Pt will increase use of compensatory strategies and cognitive communication functions by 09/07/2017. 8. Dennis will have breath sounds consistent with baseline function throughout stay and rev erse airway bronchospasm when indicated. Reevaluate goal by 09-09-2017. 9. Dennis will maintain a patent airway and effective airway clearance by 09-09-2017. STRATEGY TO ACHIEVE GOALS: - Encourage ambulation and have pt do all assigned therapies - Administer bowel meds if no BM by day 2 - Ensure bed alarm is on and call light is within reach. - encourage pt to express wants and ideas and give extra time if needed - Full participation in PT session in functional mobility training. - Pt will participate in speech therapy. - Administer respiratory medications as ordered and adjust with use of respiratory protocol s. - Perform airway clearance using vibratory PEP therapy. Outcome: Improving IRF Occupational Therapy Plan of Care Treatment Note Summary: Dennis has been participating in occupational therapy for treatment of Decrease d ADL independence and functional mobility s/p admission for CVA. Hx of multiple back surg eries and has an implated spine stimulator for pain control.. Emphasis of session included Morning self care tasks including gathering his clothes, shower, dress and groom. Patient d emonstrates progress towards functional goals as evidenced by Pt continues to demonstrate ac tivity from distant (safety)supervision with bathing and LB dressing to Mod I UB dressing, g rooming, and transfers. Remaining barriers to discharge and functional limitations include decreased insight into safety and deficits, decreased ability to perform ADLs, decreased sammy lity to perform IADLs, decreased ability to perform medication management and demonstrating need for 24/7 supervision. Dennis will benefit from continued therapeutic intervention to address ongoing impairments and increase safety and independence with activities necessary for safe discharge. Refer be low for specific details regarding functional levels. Occupational Therapy Discharge Recommendations are: Recommended discharge disposition: home with assist Post discharge occupational therapy recommendation: home health Equipment Recommendations: shower chair, grab bars Planned Interventions:ADL retraining, IADL retraining, balance training, cognitive retraini ng, neuromuscular re-education Recommended Frequency: (Rehab schedule) Patient Status/Goals: Reflects last filed data and may be from multiple contributors. ADLs Pt requesting to shower this AM Distant super vision, not physical assist or VC's reqired Bathing, Level of [place]: supervised Assistive Device: grab bars, hand-held shower head, shower chair with back Bathing Assess/Train, Position: sitting, standing Bathing Assess/Train, Impairments: impaired balance, decreased flexibility Retrieved clothing. UB Dressing, Level of [place]: modified independent Assistive Device: none UB Dressing Assess/Train, Position: sitting UB Dressing Assess/Train, Impairments: impaired balance, motor control impaired distant supervision, again pt donned underwear and pants from supported standing, leand aga inst counter. He sat to don socks and shoes LB Dressing, Level of [place]: supervised (distant supervision) Assistive Device: none LB Dressing Assess/Train, Position: sitting, standing, supported standing LB Dressing Assess/Train, Impairments: impaired balance, motor control impaired, decreased flexibility, postural control impaired Mod I in room. Toileting, Level of [place]: modified independent Assistive Device: grab bar Toileting Assess/Train, Position: sitting, standing Toileting Assess/Train, Impairments: impaired balance Retrieved toiletries for post showering needs. Grooming, Level of [place]: modified independent Assistive Device: none Grooming Assess/Train, Position: standing Grooming Assess/Train, Impairments: impaired balance Transfers Bed-Chair, Level of [place]: modified independent Chair-Bed, Level of [place]: modified independent [id number], Assistive Device: cane (straight, single point) Sit-Stand, Level of [place]: modified independent Stand-Sit, Level of [place]: modified independent [id number], Assistive Device: cane (straight, single point) Toilet, Level of [place]: modified independent Toilet, Assistive Device: cane (straight, single point), grab bars Walk-in shower, Level of [place]: supervised (distant supervision) Walk-in shower, Assistive Device: cane (straight, single point), grab bars, shower chair Impairments: impaired balance, strength decreased OT Goal Review Date Most Recent Value STG Review Date 09/04/17 at 08/31/2017 1704 LTG Review Date 09/11/17 at 08/31/2017 1704 Grooming Goal Most Recent Value STG Status met at 09/01/2017 0851 STG [place] Level supervised at 08/31/2017 1704 LTG Status met at 09/05/2017 0920 LTG [place] Level modified independent at 08/31/2017 1704 LB Dressing Goal Most Recent Value STG Status met at 09/02/2017 0906 STG [place] Level supervised at 08/31/2017 1704 LTG Status progressing at 09/07/2017 0740 LTG [place] Level modified independent at 08/31/2017 1704 Toilet Transfer Goal Most Recent Value STG Status met at 09/01/2017 0851 STG [place] Level supervised at 08/31/2017 1704 LTG Status met at 09/06/2017 0908 LTG [place] Level modified independent at 08/31/2017 1704 Tub/Shower Transfer Goal Most Recent Value Tub/Shower Type walk in shower stall at 09/05/2017 0920 STG Status met at 09/02/2017 0906 STG [place] Level contact guard assist at 08/31/2017 1704 STG Assistive Device shower chair, grab bars at 09/01/2017 1558 LTG Status met at 09/07/2017 0740 LTG [place] Level -- [Distant supervision] at 09/05/2017 0920 Additional Goals #1 OT Most Recent Value STG Status continued at 09/06/2017 0908 STG pt will demonstrate simple meal preparation task with min assist and v/c for safety to promote IADLs at 09/02/2017 1423 LTG Status continued at 09/06/2017 0908 LTG pt will demonstrate simple meal preparation task with superviison assist and 1 v/c for safety to promote IADLs at 09/02/2017 1423 Additional Goals #2 OT Most Recent Value LTG Status progressing at 09/06/2017 1846 LTG Pt will complete small laundry task w/ mod I. at 09/06/2017 0908 Electronically signed by: CHRIS Espinoza, 09/07/2017 11:45 lan of Care - Thomas acevedo RN - 09/07/2017 2:01 AM PDTProblem: Patient Care Overview (Adult) Goal: Care Team Goals & Evaluation PROBLEM-RELATED GOALS: 1. Will be mod ind in room by 09/07/17 2. Will have a BM every other day by 09/04/17 3. Will have not falls during hospital stay 4. Cognitive function will return to baseline by 09/07/17 5. Pt will be independent in functional transfers and ambulation w/o AD. 7. Pt will increase use of compensatory strategies and cognitive communication functions by 09/07/2017. 8. Dennis will have breath sounds consistent with baseline function throughout stay and rev erse airway bronchospasm when indicated. Reevaluate goal by 09-09-2017. 9. Dennis will maintain a patent airway and effective airway clearance by 09-09-2017. STRATEGY TO ACHIEVE GOALS: - Encourage ambulation and have pt do all assigned therapies - Administer bowel meds if no BM by day 2 - Ensure bed alarm is on and call light is within reach. - encourage pt to express wants and ideas and give extra time if needed - Full participation in PT session in functional mobility training. - Pt will participate in speech therapy. - Administer respiratory medications as ordered and adjust with use of respiratory protocol s. - Perform airway clearance using vibratory PEP therapy. Goal Evaluation: Patient had a dry non productive cough that was controlled with tessalon and guaifenesin. Zolpidem po given per patient's request. Patient denied pain, sob, chills, nausea, lighthead edness or dizziness. Afebrile, other VSS. lan of Care - Jessenia Menezes RN - 09/06/2017 5:07 PM PDTProblem: Patient Care Overview (Adult) Goal: Care Team Goals & Evaluation PROBLEM-RELATED GOALS: 1. Will be mod ind in room by 09/07/17 2. Will have a BM every other day by 09/04/17 3. Will have not falls during hospital stay 4. Cognitive function will return to baseline by 09/07/17 5. Pt will be independent in functional transfers and ambulation w/o AD. 7. Pt will increase use of compensatory strategies and cognitive communication functions by 09/07/2017. 8. Dennis will have breath sounds consistent with baseline function throughout stay and rev erse airway bronchospasm when indicated. Reevaluate goal by 09-09-2017. 9. Dennis will maintain a patent airway and effective airway clearance by 09-09-2017. STRATEGY TO ACHIEVE GOALS: - Encourage ambulation and have pt do all assigned therapies - Administer bowel meds if no BM by day 2 - Ensure bed alarm is on and call light is within reach. - encourage pt to express wants and ideas and give extra time if needed - Full participation in PT session in functional mobility training. - Pt will participate in speech therapy. - Administer respiratory medications as ordered and adjust with use of respiratory protocol s. - Perform airway clearance using vibratory PEP therapy. Outcome: Improving Goal Evaluation: Pt has done well today, it appears that his cough has slightly lessoned. He has been mobil izing well with therapy and nursing staff, continues to be MOD I in the room w/ cane. Pt is anxiously awaiting to go home. It appears that he has no recollection of potentially being d ischarged tomorrow. He is very forgetful. He acts like it is a surprise every time. Pt does Call light within reach. lan of Care - Ruthann Read Tolu, PT - 09/06/2017 4:45 PM PDTFormatting of this note might be different fr om the original. Problem: Patient Care Overview (Adult) Goal: Care Team Goals & Evaluation PROBLEM-RELATED GOALS: 1. Will be mod ind in room by 09/07/17 2. Will have a BM every other day by 09/04/17 3. Will have not falls during hospital stay 4. Cognitive function will return to baseline by 09/07/17 5. Pt will be independent in functional transfers and ambulation w/o AD. 7. Pt will increase use of compensatory strategies and cognitive communication functions by 09/07/2017. 8. Dennis will have breath sounds consistent with baseline function throughout stay and rev erse airway bronchospasm when indicated. Reevaluate goal by 09-09-2017. 9. Dennis will maintain a patent airway and effective airway clearance by 09-09-2017. STRATEGY TO ACHIEVE GOALS: - Encourage ambulation and have pt do all assigned therapies - Administer bowel meds if no BM by day 2 - Ensure bed alarm is on and call light is within reach. - encourage pt to express wants and ideas and give extra time if needed - Full participation in PT session in functional mobility training. - Pt will participate in speech therapy. - Administer respiratory medications as ordered and adjust with use of respiratory protocol s. - Perform airway clearance using vibratory PEP therapy. Outcome: Improving IRF Physical Therapy Plan of Care Treatment Note Summary: Dennis has been participating in physical therapy for treatment of gait instabi lity, impaired balance, dec.functional mobility d/t CVA. Hx of multiple back surgeries and has an implanted spine stimulator for pain control. Pt presents sitting up in chair; agreeab le to PT. Pt reports feeling fatigued mid-way through session, so completed split session th is p.m. in order not to over tire pt. Emphasis of session included gait, stair, and dynamic balance training on indoor and outdoor surfaces with focus on dual task training and managin g safely in distractible environments in order to minimize fall risk. Patient demonstrates progress towards functional goals as evidenced by being able to demo improving hip, ankle, a nd stepping strategies and with less LOB during dual task training. Dennis will benefit fro m continued therapeutic intervention to address ongoing impairments and increase safety and independence with activities necessary for safe discharge. Refer below for specific details regarding functional levels. Physical Therapy Discharge Recommendations are: Recommended discharge disposition: (ILF with spouse) Post discharge physical therapy recommendation: home health Equipment Recommendations: (TBD) Planned Interventions: balance training, bed mobility training, gait training, home exerci se program, transfer training, patient/family education, strengthening, stair training, daxa r coordination training Frequency: daily (1-2x/day) Patient Status/Goals: Reflects last filed data and may be from multiple contributors. Bed Mobility Pt still requires minimally increased time and effort but no physical assist. Assistive Device: none Roll Left, Level of [place]: modified independent Roll Right, Level of [place]: modified independent Supine to Sit, Level of [place]: modified independent Sit to Supine, Level of [place]: modified independent Safety Issues: decreased use of legs for bridging/pushing, impaired trunk control for bed m obility Impairments: postural control impaired, pain, impaired balance, strength decreased Transfers Pt demos safe and indepedent transfers with cane and without AD. Bed-Chair, Level of [place]: modified independent Chair-Bed, Level of [place]: modified independent [id number], Assistive Device: cane (straight, single point) Sit-Stand, Level of [place]: modified independent Stand-Sit, Level of [place]: modified independent [id number], Assistive Device: cane (straight, single point) Safety Issues: balance decreased during turns, weight-shifting ability decreased, sequencin g ability decreased Impairments: impaired balance, postural control impaired, strength decreased Gait Gait training without AD; focus on quick turns, head movements, side stepping, backwards wa lking (both combined with mental or physical dual task), catch/throw while sidestepping and walking backwards, uneven surface gait, etc. Level of [place]: stand by assist Assistive Device: none Distance (feet): > 1000 ft total but with several seated rests due to fatigue. Gait Deviations: step length decreased, [id number] clearance decreased, weight-shifting a bility decreased Impairments: strength decreased, impaired balance, coordination impaired, postural control impaired Stairs no LOB, demo safe technique with AD this am session. Number of Stairs: 12 Handrail Location: left side (ascending) Level of [place]: modified independent Assistive Device: 1 rail, cane (straight, single point) Technique Used: step over step (ascending), step over step (descending) Safety Issues: balance decreased during turns Impairments: impaired balance, coordination impaired Balance Sitting Balance: Static: good balance Sitting Balance: Dynamic: good balance Standing Balance: Static: good balance Standing Balance: Dynamic: (Fair (-)) Therapeutic Exercise catch/throw while standing on airex cushion x 5 min; also toe walking, heel walking, head t urns, etc. to work on improving balance reactions and timing. Bed exercises: half bridging Repetitions: 5x 3 Standing exercises: marching, UE reaching, shallow squats Repetitions: x 10 Balance exercises: sidestep, walk forward, throw, catch, speed walk, head turns, step over obstacles, narrow base of support, sudden stops, turn 180 degrees, turn 360 degrees, distrac tible environment, walk backwards, avoid obstacles, kick, multiple steps/stairs Repetitions: At least 20 ft for all stepping ex, > 10 for all other ex interventions. Functional Endurance WFL; pt still requires seated rests due to fatigue at times during session. Also with multi ple coughing spells. Vital signs within safe limits. ROM L LE ROM: WFL R LE ROM: WFL Strength L LE Strength: grossly graded 4-/5 R LE Strength: grossly graded 4-/5 PT Goal Review Date Most Recent Value STG Review Date 09/03/17 at 08/31/2017 1545 LTG Review Date 09/12/17 at 08/31/2017 1545 Hgiifm-Vtf-Ajyoai Goal Most Recent Value STG Status met at 09/02/2017 1500 STG [place] Level modified independent at 08/31/2017 1545 STG Assistive Device none at 08/31/2017 1545 Due-Cwqdf-Vsg Goal Most Recent Value STG Status met at 09/03/2017 0859 STG [place] Level supervised at 08/31/2017 1545 STG Assistive Device none at 08/31/2017 1545 LTG Status progressing at 09/06/2017 1645 LTG [place] Level independent at 08/31/2017 1545 LTG Assistive Device cane (straight, single point) at 09/03/2017 0859 Gait Goal Most Recent Value STG Status met at 09/03/2017 0859 STG [place] Level stand by assist at 08/31/2017 1545 STG Assistive Device none, cane (straight, single point) at 08/31/2017 1545 STG Distance (feet) 200' at 08/31/2017 1545 STG Comments none vs SPC at 08/31/2017 1545 LTG Status progressing at 09/06/2017 1645 LTG [place] Level independent at 08/31/2017 1545 LTG Assistive Device cane (straight, single point) at 09/03/2017 0859 Stair Goal Most Recent Value STG Status met at 09/03/2017 0859 STG [place] Level supervised at 08/31/2017 1545 STG Assistive Device 2 rails at 08/31/2017 1545 STG Number of Stairs 12 at 08/31/2017 1545 LTG Status progressing at 09/04/2017 1350 LTG [place] Level modified independent at 08/31/2017 1545 LTG Assistive Device 2 rails at 08/31/2017 1545 LTG Number of Stairs 12 at 08/31/2017 1545 Additional Goal #1 PT Most Recent Value STG Status not met at 09/04/2017 0944 STG Improve DGI score to to dec.fall risk at 08/31/2017 1545 LTG Status progressing at 09/06/2017 1645 LTG mprove DGI score to 1924 to dec.fall risk at 09/04/2017 0944 Electronically signed by: Ruthann Jordan, PT, 09/06/2017 18:51 lan of Care - Dayanna Matthews OT - 09/06/2017 2:23 PM PDT Problem: Patient Care Overview (Adult) Goal: Care Team Goals & Evaluation PROBLEM-RELATED GOALS: 1. Will be mod ind in room by 09/07/17 2. Will have a BM every other day by 09/04/17 3. Will have not falls during hospital stay 4. Cognitive function will return to baseline by 09/07/17 5. Pt will be independent in functional transfers and ambulation w/o AD. 7. Pt will increase use of compensatory strategies and cognitive communication functions by 09/07/2017. 8. Dennis will have breath sounds consistent with baseline function throughout stay and rev erse airway bronchospasm when indicated. Reevaluate goal by 09-09-2017. 9. Dennis will maintain a patent airway and effective airway clearance by 09-09-2017. STRATEGY TO ACHIEVE GOALS: - Encourage ambulation and have pt do all assigned therapies - Administer bowel meds if no BM by day 2 - Ensure bed alarm is on and call light is within reach. - encourage pt to express wants and ideas and give extra time if needed - Full participation in PT session in functional mobility training. - Pt will participate in speech therapy. - Administer respiratory medications as ordered and adjust with use of respiratory protocol s. - Perform airway clearance using vibratory PEP therapy. Outcome: Improving Occupational Therapy Plan of Care Treatment Note Summary: Pt participating in higher level ADL tasks and mobility w/ improving independenc e. He is mobilizing in his room w/ mod I. Distant supervision mobilizing in hallway. He i s recalling previous events w/ mi-mod prompts. Brief trial of neoprene thumb spica support for R thumb pain, w/ minmal improvement. 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 Pt indicated he had less [place] seamer on his cane w/ its use than w/o. Consider taping for pa in control. Also would benefit from additional trip to cafeteria to monitor his recall of t his task completed this AM. Occupational Therapy Discharge Recommendations are: Recommended discharge disposition: home with assist Post discharge occupational therapy recommendation: home health Equipment Recommendations: shower chair, grab bars Planned Interventions:ADL retraining, IADL retraining, balance training, cognitive retraini ng, neuromuscular re-education Recommended Frequency: (Rehab schedule) Patient Status/Goals: Reflects last filed data and may be from multiple contributors. IADLs Pt does some laundry @ home. Has newer to him stackable washer/dryer. Reviewed step-by-st ep the process to utilize IRF washer, then dryer for a load of laundry. Will plan on revisi ting this task to monitor pt's recall. Laundry Training, OT Eval Level Of [place]: Laundry: verbal cues required Physical Assist/Nonphysical Assist: Laundry: none Assistive Device: straight cane Functional Endurance Good, though pt coughing heavily during this AMs ADL session. 1 x small amount of sputum e xpelled. Cognitive Had already retrieved and set aside his clothing for shower this AM. W/ no prompts, pt rep lied appropriately after being asked what his plan was- get shoes on, get clothes, and take a shower. Located the small walk-in shower that he used yesterday after 1 cue to use the vijay e shower he used yesterday. Orientation: disoriented to, place, time, situation Follows Commands/Answers Questions: able to follow single-step instructions, needs cueing, needs increased time, needs repetition Personal Safety: decreased awareness, need for safety, decreased insight to deficits, unawa re of consequences of deficits Short/Hourly Shift Manager Memory: mild impairment, short term memory, moderate impairment, short term memory, decreased recall, recent events, requires occasional cues Executive Function Skills: organizational issues, planning issues, lack of self monitoring, impulsivity, insight/awareness issues Transfers Mobilized in hallway w/ SPC to elevator, pushed button, and returned to room w/ distant sup ervision, as directed by OT. Light stumble towards R w/ turn to L w/o LOB. Safety Issues: balance decreased during turns, weight-shifting ability decreased, sequencin g ability decreased Impairments: impaired balance, postural control impaired, strength decreased OT Goal Review Date Most Recent Value STG Review Date 09/04/17 at 08/31/2017 1704 LTG Review Date 09/11/17 at 08/31/2017 1704 Additional Goals #2 OT Most Recent Value LTG Status progressing at 09/06/2017 1846 LTG Pt will complete small laundry task w/ mod I. at 09/06/2017 0908 Electronically signed by: Dayanna Allison, OT, 09/06/2017 18:48 lan of Care - Ruthann Jean, PT - 09/06/2017 11:10 AM PDT Problem: Patient Care Overview (Adult) Goal: Care Team Goals & Evaluation PROBLEM-RELATED GOALS: 1. Will be mod ind in room by 09/07/17 2. Will have a BM every other day by 09/04/17 3. Will have not falls during hospital stay 4. Cognitive function will return to baseline by 09/07/17 5. Pt will be independent in functional transfers and ambulation w/o AD. 7. Pt will increase use of compensatory strategies and cognitive communication functions by 09/07/2017. 8. Denins will have breath sounds consistent with baseline function throughout stay and rev erse airway bronchospasm when indicated. Reevaluate goal by 09-09-2017. 9. Dennis will maintain a patent airway and effective airway clearance by 09-09-2017. STRATEGY TO ACHIEVE GOALS: - Encourage ambulation and have pt do all assigned therapies - Administer bowel meds if no BM by day 2 - Ensure bed alarm is on and call light is within reach. - encourage pt to express wants and ideas and give extra time if needed - Full participation in PT session in functional mobility training. - Pt will participate in speech therapy. - Administer respiratory medications as ordered and adjust with use of respiratory protocol s. - Perform airway clearance using vibratory PEP therapy. Outcome: Improving IRF Physical Therapy Plan of Care Treatment Note Summary: Dennis has been participating in physical therapy for treatment of Gait instabi lity, imapired balance, dec.functional mobility d/t CVA. Hx of multiple back surgeries and has an implated spine stimulator for pain control. Pt reports that he has been feeling confi dent walking around on his own in his room and bathroom. Nursing staff reports that pt does forget his cane at times but has not had any falls. Pt reports that his R hand is still hurt ing (per d/w OT, pt did not c/o pain in his hand earlier today, so no splint was tried yet) sp os agreeable to trial of nevlile wrap to provide some additional support to R hand. Emphasis of session included functional mobility, dynamic strength, balance, and endurance activities . Patient demonstrates progress towards functional goals as evidenced by being able to demo improving balance strategies and righting reactions. He felt that wrapping R hand with neville w rap was helpful, but did not take all of his pain away. Remaining barriers to discharge and functional limitations include decreased insight into safety and deficits, decreased functio nal activity tolerance, decreased functional gait distance, decreased gait velocity, stairs at home, demonstrating need for 24/7 supervision, not yet able to mobilize at level safe for home discharge. Dennis will benefit from continued therapeutic intervention to address ongoing impairments and increase safety and independence with activities necessary for safe discharge. Refer be low for specific details regarding functional levels. Physical Therapy Discharge Recommendations are: Recommended discharge disposition: (ILF with spouse) Post discharge physical therapy recommendation: home health Equipment Recommendations: (TBD) Planned Interventions: balance training, bed mobility training, gait training, home exerci se program, transfer training, patient/family education, strengthening, stair training, daxa r coordination training Frequency: daily (1-2x/day) Patient Status/Goals: Reflects last filed data and may be from multiple contributors. Transfers Trial of mod-I transfers; pt requires increased time and effort but able to perform sit <>s tand, bed <> chair, and toilet transfers with safe technique this session. Bed-Chair, Level of [place]: modified independent Chair-Bed, Level of [place]: modified independent Mlv-Gkyfw-Roi, Assistive Device: cane (straight, single point) Sit-Stand, Level of [place]: modified independent Stand-Sit, Level of [place]: modified independent [id number]-[id number], Assistive Device: cane (straight, single point) Safety Issues: balance decreased during turns, weight-shifting ability decreased, sequencin g ability decreased Impairments: impaired balance, postural control impaired, strength decreased Gait Gait training with SPC and then without AD; focus on quick turns, side stepping, backwards stepping, distractions, head turns, dual tasks (catching/throwing, counting f/b, stepping ov er, around obstacles, and over small boxes) Pt able to safely ambulate on level surfaces wit hout distractions without LOB but did require CGA at times during sidestepping, backward wal tommie, stepping over objects and during dual task training such as counting backwards by 2s. Level of [place]: contact guard assist, stand by assist Assistive Device: (Trial SPC and then no AD) Distance (feet): > 1000 ft total but with 3-4 seated rests due to fatigue throughout sessio n. Gait Deviations: step length decreased, nha-df-hyfda clearance decreased, weight-shifting a bility decreased Impairments: strength decreased, impaired balance, coordination impaired, postural control impaired Balance Sitting Balance: Static: good balance Sitting Balance: Dynamic: good balance Standing Balance: Static: good balance Standing Balance: Dynamic: fair (-) balance Therapeutic Exercise Standing exercises: marching, UE reaching, shallow squats Repetitions: x 10 Balance exercises: sidestep, walk forward, throw, catch, speed walk, head turns, step over obstacles, narrow base of support, sudden stops, turn 180 degrees, turn 360 degrees, distrac tible environment, walk backwards, avoid obstacles Repetitions: 20-30 ft for each of the stepping ex; 20-30 turns, changes in speed and h ead turns during gait training. Functional Endurance WFL; pt still requires seated rests due to fatigue at times during session. Also with multi ple coughing spells. Vital signs within safe limits. ROM L LE ROM: WFL R LE ROM: WFL Strength L LE Strength: grossly graded 4-/5 R LE Strength: grossly graded 4-/5 PT Goal Review Date Most Recent Value STG Review Date 09/03/17 at 08/31/2017 1545 LTG Review Date 09/12/17 at 08/31/2017 1545 Eojigp-Mvb-Buoerb Goal Most Recent Value STG Status met at 09/02/2017 1500 STG [place] Level modified independent at 08/31/2017 1545 STG Assistive Device none at 08/31/2017 1545 Dlu-Xkzzg-Dmp Goal Most Recent Value STG Status met at 09/03/2017 0859 STG [place] Level supervised at 08/31/2017 1545 STG Assistive Device none at 08/31/2017 1545 LTG Status progressing at 09/05/2017 1055 LTG [place] Level independent at 08/31/2017 1545 LTG Assistive Device cane (straight, single point) at 09/03/2017 0859 Gait Goal Most Recent Value STG Status met at 09/03/2017 0859 STG [place] Level stand by assist at 08/31/2017 1545 STG Assistive Device none, cane (straight, single point) at 08/31/2017 1545 STG Distance (feet) 200' at 08/31/2017 1545 STG Comments none vs SPC at 08/31/2017 1545 LTG Status progressing at 09/05/2017 1055 LTG [place] Level independent at 08/31/2017 1545 LTG Assistive Device cane (straight, single point) at 09/03/2017 0859 Stair Goal Most Recent Value STG Status met at 09/03/2017 0859 STG [place] Level supervised at 08/31/2017 1545 STG Assistive Device 2 rails at 08/31/2017 1545 STG Number of Stairs 12 at 08/31/2017 1545 LTG Status progressing at 09/04/2017 1350 LTG [place] Level modified independent at 08/31/2017 1545 LTG Assistive Device 2 rails at 08/31/2017 1545 LTG Number of Stairs 12 at 08/31/2017 1545 Additional Goal #1 PT Most Recent Value STG Status not met at 09/04/2017 0944 STG Improve DGI score to to dec.fall risk at 08/31/2017 1545 LTG Status progressing at 09/05/2017 1055 LTG mprove DGI score to to dec.fall risk at 09/04/2017 0944 Electronically signed by: Ruthann Jordan, PT, 09/06/2017 18:32 lan of Care - [facility] Dayanna alicea OT - 09/06/2017 9:38 AM PDT Problem: Patient Care Overview (Adult) Goal: Care Team Goals & Evaluation PROBLEM-RELATED GOALS: 1. Will be mod ind in room by 09/07/17 2. Will have a BM every other day by 09/04/17 3. Will have not falls during hospital stay 4. Cognitive function will return to baseline by 09/07/17 5. Pt will be independent in functional transfers and ambulation w/o AD. 7. Pt will increase use of compensatory strategies and cognitive communication functions by 09/07/2017. 8. Dennis will have breath sounds consistent with baseline function throughout stay and rev erse airway bronchospasm when indicated. Reevaluate goal by 09-09-2017. 9. Dennis will maintain a patent airway and effective airway clearance by 09-09-2017. STRATEGY TO ACHIEVE GOALS: - Encourage ambulation and have pt do all assigned therapies - Administer bowel meds if no BM by day 2 - Ensure bed alarm is on and call light is within reach. - encourage pt to express wants and ideas and give extra time if needed - Full participation in PT session in functional mobility training. - Pt will participate in speech therapy. - Administer respiratory medications as ordered and adjust with use of respiratory protocol s. - Perform airway clearance using vibratory PEP therapy. Outcome: Improving IRF Occupational Therapy Plan of Care Treatment Note Summary: Dennis has been participating in occupational therapy for treatment of Decrease d ADL independence and functional mobility s/p admission for CVA. Hx of multiple back surg eries and has an implated spine stimulator for pain control.. Emphasis of session included ADLs; community re-integration; fxl mobility; sequencing. Patient demonstrates progress tow ards functional goals as evidenced by w/ ADLs less cuing and supervision required; improveme nt in navigational skills. Remaining barriers to discharge and functional limitations inclu de decreased insight into safety and deficits, decreased functional transfers, decreased sammy lity to perform ADLs, decreased ability to perform IADLs and not yet able to mobilize at lev el safe for home discharge. Dennis will benefit from continued therapeutic intervention to address ongoing impairments and increase safety and independence with activities necessary for safe discharge. Refer be low for specific details regarding functional levels. Occupational Therapy Discharge Recommendations are: Recommended discharge disposition: home with assist Post discharge occupational therapy recommendation: home health Equipment Recommendations: shower chair, grab bars Planned Interventions:ADL retraining, IADL retraining, balance training, cognitive retraini ng, neuromuscular re-education Recommended Frequency: (Rehab schedule) Patient Status/Goals: Reflects last filed data and may be from multiple contributors. ADLs Distant supervision. Sat/stood appropriately, no LOB while showering in small walk-in wily wer. No difficulty managing, water shampoo. Bathing, Level of [place]: supervised (Distant) Assistive Device: hand-held shower head, shower chair with back, grab bars Bathing Assess/Train, Position: sitting, standing Bathing Assess/Train, Impairments: impaired balance, decreased flexibility Retrieved clothing. UB Dressing, Level of [place]: modified independent Assistive Device: none UB Dressing Assess/Train, Position: sitting UB Dressing Assess/Train, Impairments: impaired balance, motor control impaired Retrieved clothing. Donned underwear while in standing, but recognized he should have been seated. Donned pants from seated position afterwards. LB Dressing, Level of [place]: supervised (Distant) Assistive Device: none LB Dressing Assess/Train, Position: sitting, standing LB Dressing Assess/Train, Impairments: impaired balance, motor control impaired, decreased flexibility, postural control impaired Self-Feeding, Level of [place]: independent Assistive Device: none Self-Feeding Assess/Train, Position: sitting Self-Feeding Assess/Train, Impairments: (deficits in STM and problem solving) IADLs Ambulated to cafeteria to get coffee. Single verbal prompts provided @ junctions- pt then scanned environment to locate signage/info. Extra time to locate signage and directions. O nce inside cafeteria, OT provided prompts for pt to identify reason for being in cafeteria. Moderate prompts, pt recalled but difficulty locating coffee and he therefore asked a kitch en staff member where the coffee was. Overall required ~7 min to retrieve cup, identify whi ch coffee, locate sugar and lid. Returned to room w/ minimal cues. Cognitive Had already retrieved and set aside his clothing for shower this AM. W/ no prompts, pt rep lied appropriately after being asked what his plan was- get shoes on, get clothes, and take a shower. Located the small walk-in shower that he used yesterday after 1 cue to use the vijay e shower he used yesterday. Follows Commands/Answers Questions: able to follow single-step instructions, needs cueing, needs increased time, needs repetition Personal Safety: decreased awareness, need for safety, decreased insight to deficits, unawa re of consequences of deficits Short/Fci Memory: mild impairment, short term memory, moderate impairment, short term memory, decreased recall, recent events, requires occasional cues Executive Function Skills: organizational issues, planning issues, lack of self monitoring , impulsivity, insight/awareness issues Bed Mobility Assistive Device: none Roll Left, Level of [place]: modified independent Roll Right, Level of [place]: modified independent Supine to Sit, Level of [place]: independent Sit to Supine, Level of [place]: independent Safety Issues: decreased use of legs for bridging/pushing Impairments: postural control impaired Transfers Using SPC in room, mod I. Bed-Chair, Level of [place]: modified independent Chair-Bed, Level of [place]: modified independent Pct-Xiomj-Tfh, Assistive Device: cane (straight, single point) Sit-Stand, Level of [place]: modified independent Stand-Sit, Level of [place]: modified independent Lky-Htfas-Prn, Assistive Device: cane (straight, single point) Toilet, Level of [place]: modified independent Toilet, Assistive Device: cane (straight, single point), grab bars Walk-in shower, Level of [place]: supervised (Distant) Walk-in shower, Assistive Device: cane (straight, single point), grab bars, shower chair Safety Issues: balance decreased during turns, weight-shifting ability decreased, sequencin g ability decreased Impairments: impaired balance, postural control impaired, strength decreased OT Goal Review Date Most Recent Value STG Review Date 09/04/17 at 08/31/2017 1704 LTG Review Date 09/11/17 at 08/31/2017 1704 Grooming Goal Most Recent Value STG Status met at 09/01/2017 0851 STG [place] Level supervised at 08/31/2017 1704 LTG Status met at 09/05/2017 0920 LTG [place] Level modified independent at 08/31/2017 1704 LB Dressing Goal Most Recent Value STG Status met at 09/02/2017 0906 STG [place] Level supervised at 08/31/2017 1704 LTG Status progressing at 09/06/2017 0908 LTG [place] Level modified independent at 08/31/2017 1704 Toilet Transfer Goal Most Recent Value STG Status met at 09/01/2017 0851 STG [place] Level supervised at 08/31/2017 1704 LTG Status met at 09/06/2017 0908 LTG [place] Level modified independent at 08/31/2017 1704 Tub/Shower Transfer Goal Most Recent Value Tub/Shower Type walk in shower stall at 09/05/2017 0920 STG Status met at 09/02/2017 0906 STG [place] Level contact guard assist at 08/31/2017 1704 STG Assistive Device shower chair, grab bars at 09/01/2017 1558 LTG Status progressing at 09/06/2017 0908 LTG [place] Level -- [Distant supervision] at 09/05/2017 0920 Additional Goals #1 OT Most Recent Value STG Status continued at 09/06/2017 0908 STG pt will demonstrate simple meal preparation task with min assist and v/c for safety to promote IADLs at 09/02/2017 1423 LTG Status continued at 09/06/2017 0908 LTG pt will demonstrate simple meal preparation task with superviison assist and 1 v/c for safety to promote IADLs at 09/02/2017 1423 Additional Goals #2 OT Most Recent Value LTG Status new at 09/06/2017 0908 LTG Pt will complete small laundry task w/ mod I. at 09/06/2017 0908 Electronically signed by: Dayanna Allison, OT, 09/06/2017 12:41 lan of Care - James nelson, Seymour A, [employer] OFF[employer]ER - 09/06/2017 8:22 AM PDT Problem: Patient Care Overview (Adult) Goal: Care Team Goals & Evaluation PROBLEM-RELATED GOALS: 1. Will be mod ind in room by 09/07/17 2. Will have a BM every other day by 09/04/17 3. Will have not falls during hospital stay 4. Cognitive function will return to baseline by 09/07/17 5. Pt will be independent in functional transfers and ambulation w/o AD. 7. Pt will increase use of compensatory strategies and cognitive communication functions by 09/07/2017. 8. Dennis will have breath sounds consistent with baseline function throughout stay and rev erse airway bronchospasm when indicated. Reevaluate goal by 09-09-2017. 9. Dennis will maintain a patent airway and effective airway clearance by 09-09-2017. STRATEGY TO ACHIEVE GOALS: - Encourage ambulation and have pt do all assigned therapies - Administer bowel meds if no BM by day 2 - Ensure bed alarm is on and call light is within reach. - encourage pt to express wants and ideas and give extra time if needed - Full participation in PT session in functional mobility training. - Pt will participate in speech therapy. - Administer respiratory medications as ordered and adjust with use of respiratory protocol s. - Perform airway clearance using vibratory PEP therapy. Outcome: Improving Goal Evaluation: SpO2: 95 % on room air after ambulation and BS are clear. Discontinued CPT and started vib ratory PEP therapy. Patient instructed to use every hour. 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 Severity Score 4 Class 2 Severity Score 0-4 ITEM 0 1 2 3 4 3 Respiratory History No Smoking history Current tobacco use Up to 10 Pack year history. Simple home regimen Known Pulmonary Disease 20 pack year history Complex Home regimen 30+ pack year history Severe Pulmonary Disease or exacerbation 0 Surgery Status (current admission) No surgery Minor surgery Lower abdominal rib fractures Thoracic or uppe r abdominal Thoracic with pulmonary disease or Central Nervous System 1 Chest X-RAY Clear or Normal baseline Unavailable Improving/clearing Abnormal, Unilateral or mild Infiltrates or atelectasis, Chronic changes Infiltrates mild bilateral or unilateral or pleural effusions extensive Inf iltrates, atelectasis or pleural effusions, pneumothorax 0 Respiratory Pattern Regular pattern Respiratory Rate:8-20 Increased Respiratory Rate, labored Dyspnea on exertion, irregular pattern Use of accessory muscles, prolonged expirato ry phase nasal flaring Severe Dyspnea , Purse Lip Breathing, Use of accessory muscles 0 Breath Sounds Clear Diminished unilaterally Diminished bilaterally &/or crackles Wheezing or Rhonchi &/or absent unilateral Absent bilaterally 0 Cough Strong, non productive Moderate, loose, productive Weak, non-productive Weak, ineffective Non-spontaneous or may require suctioning 0 Sputum None Scant / Thin White/clear Moderate Beige/ yellow Large / Thick Dark Green/Brown Copious / Plugs Hemoptysis aliya 0 LOC Alert, oriented, cooperative Disoriented, follows commands Obtunded, arousable, follo ws commands Obtunded, uncooperative, sedated Comatose 0 Oxygen Demand Room air Baseline 1-2 liters 3-6 liters >7 Liters Oxymizer to > 55% 60% or greater Total Severity Score (SS) Class 0-3 1 4-7 2 8-11 3 12-14 4 15+ 5 lan of Care - Rubin Elizabeth RN - 09/06/2017 5:40 AM PDTProblem: Patient Care Overview (Adult) Goal: Care Team Goals & Evaluation PROBLEM-RELATED GOALS: Will be mod ind in room by 09/07/17 Will have a BM every other day by 09/04/17 Will have not falls during hospital stay Cognitive function will return to baseline by 09/07/17 Pt will be independent in functional transfers and ambulation w/o AD. Dennis will maintain adequate oxygenation via oximetry with SpO2 >90%. Pt will increase use of compensatory strategies and cognitive communication functions by STRATEGY TO ACHIEVE GOALS: Encourage ambulation and have pt do all assigned therapies Administer bowel meds if no BM by day 2 Ensure bed alarm is on and call light is within reach. encourage pt to express wants and ideas and give extra time if needed - Full participation in PT session in functional mobility training Monitor saturations via oximetry and titrate to order as indicated. -Pt will participate in speech therapy Outcome: Improving Goal Evaluation: Patient doing well. Sleeping well at night (requested a sleeping pill). No pain reported. Modified independent in room (was encouraged to use cane and to call if assistance was need ed). Patient forgetful at times. Voiding well (toilet). Last BM on 09/05/2017. CMS intact. No injuries/falls reported or noted. Frequent rounding done. lan of Care - Jessenia Krueger RN - 09/05/2017 4:27 PM PDTProblem: Patient Care Overview (Adult) Goal: Care Team Goals & Evaluation PROBLEM-RELATED GOALS: Will be mod ind in room by 09/07/17 Will have a BM every other day by 09/04/17 Will have not falls during hospital stay Cognitive function will return to baseline by 09/07/17 Pt will be independent in functional transfers and ambulation w/o AD. Dennis will maintain adequate oxygenation via oximetry with SpO2 >90%. Pt will increase use of compensatory strategies and cognitive communication functions by STRATEGY TO ACHIEVE GOALS: Encourage ambulation and have pt do all assigned therapies Administer bowel meds if no BM by day 2 Ensure bed alarm is on and call light is within reach. encourage pt to express wants and ideas and give extra time if needed - Full participation in PT session in functional mobility training Monitor saturations via oximetry and titrate to order as indicated. -Pt will participate in speech therapy Outcome: Improving Goal Evaluation: Pt is doing well, he has been advanced to MOD I in the room w/ his cane, he does however c ontinue to forget his cane. Pt continues to complain about a scab on his L ear. Pt has jaqueline h ose on. He is tolerating a general diet and working with therapy. Pt denies numbness or ting ling. Call light within reach. lan of Care - Ruthann Read, PT - 09/05/2017 2:43 PM PDTFormatting of this note might be different fr om the original. Problem: Patient Care Overview (Adult) Goal: Care Team Goals & Evaluation PROBLEM-RELATED GOALS: Will be mod ind in room by 09/07/17 Will have a BM every other day by 09/04/17 Will have not falls during hospital stay Cognitive function will return to baseline by 09/07/17 Pt will be independent in functional transfers and ambulation w/o AD. Dennis will maintain adequate oxygenation via oximetry with SpO2 >90%. Pt will increase use of compensatory strategies and cognitive communication functions by STRATEGY TO ACHIEVE GOALS: Encourage ambulation and have pt do all assigned therapies Administer bowel meds if no BM by day 2 Ensure bed alarm is on and call light is within reach. encourage pt to express wants and ideas and give extra time if needed - Full participation in PT session in functional mobility training Monitor saturations via oximetry and titrate to order as indicated. -Pt will participate in speech therapy Outcome: Improving IRF Physical Therapy Plan of Care Treatment Note Summary: Dennis has been participating in physical therapy for treatment of gait instabili ty, impaired balance, dec.functional mobility d/t CVA. Hx of multiple back surgeries and peñaloza s an implanted spine stimulator for pain control. Pt's present for family training. Em phasis of session included functional mobility and gait training, as well as ed provided to re: fall risk, fall prevention, progression to mod-I in room as recommended by Dr. Rowell . Also instructed in how to steady pt but not to try to hold him up in the event that h e is really falling, but just to try to ease his fall to prevent injury. states underst anding and agreement. She says that although pt did not really have any true falls at home, he was unsteady on his feet and sometimes fell against the wall but then was able to recover his balance and did not fall to the floor. Also activated spinal stimulator, after which pt reports no more back pain at present. Dennis will benefit from continued therapeutic inter vention to address ongoing impairments and increase safety and independence with activities necessary for safe discharge. Refer below for specific details regarding functional levels. Physical Therapy Discharge Recommendations are: Recommended discharge disposition: (ILF with spouse) Post discharge physical therapy recommendation: home health Equipment Recommendations: (TBD) Planned Interventions: balance training, bed mobility training, gait training, home exerci se program, transfer training, patient/family education, strengthening, stair training, daxa r coordination training Frequency: daily (1-2x/day) Patient Status/Goals: Reflects last filed data and may be from multiple contributors. Transfers Trial of mod-I transfers; pt requires increased time and effort but able to perform sit <>s tand, bed <> chair, and toilet transfers with safe technique this session. Bed-Chair, Level of [place]: modified independent Chair-Bed, Level of [place]: modified independent [id number], Assistive Device: cane (straight, single point) Sit-Stand, Level of [place]: modified independent Stand-Sit, Level of [place]: modified independent [id number]-Lzz, Assistive Device: cane (straight, single point) Safety Issues: balance decreased during turns, weight-shifting ability decreased Impairments: impaired balance, postural control impaired Gait Gait training focused on incline/decline and uneven surface training, as reports that pt has to walk up/down hill on gravel surface juan f. 75 yards and then [address] to get to [facility] where they live. Gait training focused on simulating this. Level of [place]: contact guard assist Assistive Device: cane (straight, single point) Gait Deviations: step length decreased, xbr-bu-[id number] clearance decreased, weight-shifting a bility decreased Impairments: strength decreased, impaired balance, coordination impaired, postural control impaired Balance Sitting Balance: Static: good balance Sitting Balance: Dynamic: good balance Standing Balance: Static: (G-) Standing Balance: Dynamic: (G-) Functional Endurance Good ROM L LE ROM: WFL R LE ROM: WFL Strength L LE Strength: grossly graded 4-/5 R LE Strength: grossly graded 4-/5 PT Goal Review Date Most Recent Value STG Review Date 09/03/17 at 08/31/2017 1545 LTG Review Date 09/12/17 at 08/31/2017 1545 Hqpsdw-[id number]-Hfoidt Goal Most Recent Value STG Status met at 09/02/2017 1500 STG [place] Level modified independent at 08/31/2017 1545 STG Assistive Device none at 08/31/2017 1545 Wwf-Ffpri-Hnz Goal Most Recent Value STG Status met at 09/03/2017 0859 STG [place] Level supervised at 08/31/2017 1545 STG Assistive Device none at 08/31/2017 1545 LTG Status progressing at 09/05/2017 1055 LTG [place] Level independent at 08/31/2017 1545 LTG Assistive Device cane (straight, single point) at 09/03/2017 0859 Gait Goal Most Recent Value STG Status met at 09/03/2017 0859 STG [place] Level stand by assist at 08/31/2017 1545 STG Assistive Device none, cane (straight, single point) at 08/31/2017 1545 STG Distance (feet) 200' at 08/31/2017 1545 STG Comments none vs SPC at 08/31/2017 1545 LTG Status progressing at 09/05/2017 1055 LTG [place] Level independent at 08/31/2017 1545 LTG Assistive Device cane (straight, single point) at 09/03/2017 0859 Stair Goal Most Recent Value STG Status met at 09/03/2017 0859 STG [place] Level supervised at 08/31/2017 1545 STG Assistive Device 2 rails at 08/31/2017 1545 STG Number of Stairs 12 at 08/31/2017 1545 LTG Status progressing at 09/04/2017 1350 LTG [place] Level modified independent at 08/31/2017 1545 LTG Assistive Device 2 rails at 08/31/2017 1545 LTG Number of Stairs 12 at 08/31/2017 1545 Additional Goal #1 PT Most Recent Value STG Status not met at 09/04/2017 0944 STG Improve DGI score to 19 to dec.fall risk at 08/31/2017 1545 LTG Status progressing at 09/05/2017 1055 LTG mprove DGI score to 19/24 to dec.fall risk at 09/04/2017 0944 Electronically signed by: Ruthann Jordan, PT, 09/05/2017 20:08 [facility] - 09/05/2017 1:52 PM PDTProblem: Patient Care Overview (Adult) Goal: Care Team Goals & Evaluation PROBLEM-RELATED GOALS: Will be mod ind in room by 09/07/17 Will have a BM every other day by 09/04/17 Will have not falls during hospital stay Cognitive function will return to baseline by 09/07/17 Pt will be independent in functional transfers and ambulation w/o AD. Dennis will maintain adequate oxygenation via oximetry with SpO2 >90%. Pt will increase use of compensatory strategies and cognitive communication functions by STRATEGY TO ACHIEVE GOALS: Encourage ambulation and have pt do all assigned therapies Administer bowel meds if no BM by day 2 Ensure bed alarm is on and call light is within reach. encourage pt to express wants and ideas and give extra time if needed - Full participation in PT session in functional mobility training Monitor saturations via oximetry and titrate to order as indicated. -Pt will participate in speech therapy Outcome: Improving IRF Occupational Therapy Plan of Care Treatment Note Summary: present for family training. Reviewed observed deficits in cognition- orga nization, sequencing, recall, word-finding, etc. reports it appears his memory is near baseline, that he had some previous STM deficits requiring him to ask questions 2-3 x. Rev iewed techniques to assist him in organizing self, identify words, ensure safety, etc. Educ ated that initially he should have supervision around their home. Pt reviewed his menu valero amy for tomorrow. He indicates not wanting entrees for lunch or dinner, not liking the solomon ctions. Declined an alternative choice. He did recall info reviewed yesterday regarding sp ecificity of choices (ie what kind of mild, type of juice, etc). is very supportive an d indicates she can provide adequate supervision and support for the pt's recovery. She inq uired if he should be left alone. Assessment is ongoing and she would benefit from an addt' l family training session, including LEARNING SPECIALIST, prior to d/c home. Occupational Therapy Discharge Recommendations are: Recommended discharge disposition: home with assist Post discharge occupational therapy recommendation: home health Equipment Recommendations: shower chair, grab bars Planned Interventions:ADL retraining, IADL retraining, balance training, cognitive retraini ng, neuromuscular re-education Recommended Frequency: Rehab schedule Patient Status/Goals: Reflects last filed data and may be from multiple contributors. Electronically signed by: Dayanna Allison OT, 09/05/2017 17:08 lan of Care - Ruthann Jean, PT - 09/05/2017 10:55 AM PDT Problem: Patient Care Overview (Adult) Goal: Care Team Goals & Evaluation PROBLEM-RELATED GOALS: Will be mod ind in room by 09/07/17 Will have a BM every other day by 09/04/17 Will have not falls during hospital stay Cognitive function will return to baseline by 09/07/17 Pt will be independent in functional transfers and ambulation w/o AD. Dennis will maintain adequate oxygenation via oximetry with SpO2 >90%. Pt will increase use of compensatory strategies and cognitive communication functions by STRATEGY TO ACHIEVE GOALS: Encourage ambulation and have pt do all assigned therapies Administer bowel meds if no BM by day 2 Ensure bed alarm is on and call light is within reach. encourage pt to express wants and ideas and give extra time if needed - Full participation in PT session in functional mobility training Monitor saturations via oximetry and titrate to order as indicated. -Pt will participate in speech therapy IRF Physical Therapy Plan of Care Treatment Note Summary: Dennis has been participating in physical therapy for treatment of gait instabi lity, impaired balance, dec.functional mobility d/t CVA. Hx of multiple back surgeries and has an implanted spine stimulator for pain control. Pt presents sitting up in chair; says th at the respiratory therapist was in to give him a treatment, as he was not breathing well th is a.m. During gait training, pt c/o pain in R hand, with most tenderness at thumb and 1st m etatarsal. Noted some swelling there and in dorsum of hand. Emphasis of session included fu nctional mobility, gait training with and without AD, dual task training, dynamic balance ac tivities. Patient demonstrates progress towards functional goals as evidenced by being able to perform gait without LOB when using SPC today. Vital signs w/ good response throughout s ession (see flow sheets) however, gait less stable and Trendelenberg pattern more noticeable during gait training without AD. Trial of forearm crutch, but pt says this made his R hand hurt worse, so discontinued use of this. Case d/w Dr. Rowell at end of session and he advised that R hand pain is not new and advised to try glove or wrap. Will ask OT to address trial s plint, wrap or glove to provide support to area and help minimize pain and edema. Dr. Rowell a lso advising to try to have pt be mod-I in his room during the day with SPC. Dennis will benefit from continued therapeutic intervention to address ongoing impairments and increase safety and independence with activities necessary for safe discharge. Refer be low for specific details regarding functional levels. Physical Therapy Discharge Recommendations are: Recommended discharge disposition: (ILF with spouse) Post discharge physical therapy recommendation: home health Equipment Recommendations: (TBD) Planned Interventions: balance training, bed mobility training, gait training, home exerci se program, transfer training, patient/family education, strengthening, stair training, daxa r coordination training Frequency: daily (1-2x/day) Patient Status/Goals: Reflects last filed data and may be from multiple contributors. Transfers Pt able to complete sit <> stand transfer with increased time and effort but no physical as sist. However, pt with no recall from yesterday and decreased awareness of balance deficits (most noticeable when distracted). Bed-Chair, Level of [place]: supervised Chair-Bed, Level of [place]: supervised Pvv-Ozsyk-Fur, Assistive Device: cane (straight, single point) Sit-Stand, Level of [place]: modified independent Stand-Sit, Level of [place]: modified independent Cgi-[id number]-Pdt, Assistive Device: cane (straight, single point) Safety Issues: balance decreased during turns Impairments: impaired balance, coordination impaired, postural control impaired Gait Ptreports that he likes the cane and uses one at home. However, during gait training, pt c/ o his R hand hurting. Pt with (+) tenderness to palpation at thumb and 1st and 2nd metatarsa ls. Cues for looking up/down, R/L, and turning during gait training. Level of [place]: supervised Assistive Device: cane (straight, single point) Distance (feet): 350 Gait Deviations: step length decreased, lpy-aj-[id number] clearance decreased, weight-shifting a bility decreased Impairments: strength decreased, impaired balance, coordination impaired, postural control impaired Balance Sitting Balance: Static: good balance Sitting Balance: Dynamic: good balance Standing Balance: Static: (G-) Standing Balance: Dynamic: Fair Therapeutic Exercise catch/throw while standing on airex cushion x 5 min; also toe walking, heel walking, head t urns, etc. to work on improving balance reactions and timing. Standing exercises: marching x 20-30 ft, UE reaching both unilateral and then with progress ion to bilateral. Balance exercises: sidestep, walk forward, throw, catch, speed walk, head turns, step over obstacles, narrow base of support, sudden stops, turn 180 degrees, turn 360 degrees Functional Endurance WFL ROM L LE ROM: WFL R LE ROM: WFL Strength L LE Strength: grossly graded 4-/5 R LE Strength: grossly graded 4-/5 PT Goal Review Date Most Recent Value STG Review Date 09/03/17 at 08/31/2017 1545 LTG Review Date 09/12/17 at 08/31/2017 1545 Ezhkbw-Krr-Khillz Goal Most Recent Value STG Status met at 09/02/2017 1500 STG [place] Level modified independent at 08/31/2017 1545 STG Assistive Device none at 08/31/2017 1545 Cne-Wnabl-Zji Goal Most Recent Value STG Status met at 09/03/2017 0859 STG [place] Level supervised at 08/31/2017 1545 STG Assistive Device none at 08/31/2017 1545 LTG Status progressing at 09/05/2017 1055 LTG [place] Level independent at 08/31/2017 1545 LTG Assistive Device cane (straight, single point) at 09/03/2017 0859 Gait Goal Most Recent Value STG Status met at 09/03/2017 0859 STG [place] Level stand by assist at 08/31/2017 1545 STG Assistive Device none, cane (straight, single point) at 08/31/2017 1545 STG Distance (feet) 200' at 08/31/2017 1545 STG Comments none vs SPC at 08/31/2017 1545 LTG Status progressing at 09/05/2017 1055 LTG [place] Level independent at 08/31/2017 1545 LTG Assistive Device cane (straight, single point) at 09/03/2017 0859 Stair Goal Most Recent Value STG Status met at 09/03/2017 0859 STG [place] Level supervised at 08/31/2017 1545 STG Assistive Device 2 rails at 08/31/2017 1545 STG Number of Stairs 12 at 08/31/2017 1545 LTG Status progressing at 09/04/2017 1350 LTG [place] Level modified independent at 08/31/2017 1545 LTG Assistive Device 2 rails at 08/31/2017 1545 LTG Number of Stairs 12 at 08/31/2017 1545 Additional Goal #1 PT Most Recent Value STG Status not met at 09/04/2017 0944 STG Improve DGI score to 19/24 to dec.fall risk at 08/31/2017 1545 LTG Status progressing at 09/05/2017 1055 LTG mprove DGI score to to apr.fall risk at 09/04/2017 0944 Electronically signed by: Ruthann Jordan, PT, 09/05/2017 19:52 lan of Care - Von Dowd, ALUMNI RELATIONS OFFICER - 09/05/2017 10:39 AM PDTProblem: Patient Care Overview (Adult) Goal: Care Team Goals & Evaluation PROBLEM-RELATED GOALS: Will be mod ind in room by 09/07/17 Will have a BM every other day by 09/04/17 Will have not falls during hospital stay Cognitive function will return to baseline by 09/07/17 Pt will be independent in functional transfers and ambulation w/o AD. Dennis will maintain adequate oxygenation via oximetry with SpO2 >90%. Pt will increase use of compensatory strategies and cognitive communication functions by STRATEGY TO ACHIEVE GOALS: Encourage ambulation and have pt do all assigned therapies Administer bowel meds if no BM by day 2 Ensure bed alarm is on and call light is within reach. encourage pt to express wants and ideas and give extra time if needed - Full participation in PT session in functional mobility training Monitor saturations via oximetry and titrate to order as indicated. -Pt will participate in speech therapy Goal Evaluation: Patient stated that he had mild shortness of breath walking. Breat h sounds slightly wheezy upper. Nebulizer treatments ordered and patient stated that the tr eatment seemed to help. pef increased by 70 points after treatment. Oxygen saturation on r oom air =95%. Will continue to follow lan of Care - Dayanna Lam OT - 09/05/2017 9:40 AM PDTFormatting of this note might be different from t he original. Problem: Patient Care Overview (Adult) Goal: Care Team Goals & Evaluation PROBLEM-RELATED GOALS: Will be mod ind in room by 09/07/17 Will have a BM every other day by 09/04/17 Will have not falls during hospital stay Cognitive function will return to baseline by 09/07/17 Pt will be independent in functional transfers and ambulation w/o AD. Dennis will maintain adequate oxygenation via oximetry with SpO2 >90%. Pt will increase use of compensatory strategies and cognitive communication functions by STRATEGY TO ACHIEVE GOALS: Encourage ambulation and have pt do all assigned therapies Administer bowel meds if no BM by day 2 Ensure bed alarm is on and call light is within reach. encourage pt to express wants and ideas and give extra time if needed - Full participation in PT session in functional mobility training Monitor saturations via oximetry and titrate to order as indicated. -Pt will participate in speech therapy Outcome: Improving IRF Occupational Therapy Plan of Care Treatment Note Summary: Dennis has been participating in occupational therapy for treatment of Decrease d ADL independence and functional mobility s/p admission for CVA. Hx of multiple back surg eries and has an implated spine stimulator for pain control.. Emphasis of session included showering, U/LB dressing & clothing retrieval; safety awareness; fxl mobility; navigation, d ual-tasking, organization. Patient demonstrates progress towards functional goals as eviden amy by fewer prompts/reminders for safety, organization/sequencing. Remaining barriers to d ischarge and functional limitations include decreased insight into safety and deficits, decr eased functional transfers, decreased ability to perform ADLs, decreased ability to perform IADLs, demonstrating need for 24/7 supervision and not yet able to mobilize at level safe fo r home discharge. Dennis will benefit from continued therapeutic intervention to address ongoing impairments and increase safety and independence with activities necessary for safe discharge. Refer be low for specific details regarding functional levels. Occupational Therapy Discharge Recommendations are: Recommended discharge disposition: home with assist Post discharge occupational therapy recommendation: home health Equipment Recommendations: shower chair, grab bars Planned Interventions:ADL retraining, IADL retraining, balance training, cognitive retraini ng, neuromuscular re-education Recommended Frequency: Rehab schedule Patient Status/Goals: Reflects last filed data and may be from multiple contributors. ADLs Supervised. Sat/stood appropriately w/o LOB while showering in walk-in shower. Required 26 sec to identify that shanmpoo bottle was Bathing, Level of [place]: supervised, set up required, verbal cues required Assistive Device: hand-held shower head, shower chair with back, grab bars Bathing Assess/Train, Position: sitting, standing Bathing Assess/Train, Impairments: impaired balance, coordination impaired, decreased flexi bility Retrieved clothing. UB Dressing, Level of [place]: modified independent Assistive Device: none UB Dressing Assess/Train, Position: sitting UB Dressing Assess/Train, Impairments: impaired balance, motor control impaired Retrieved clothing. Initiated donning pants standing, leaning on wall for support. Review ed safety and inquired what might be a safer technique, followed by "how did you put your un derwear on?" He then returned to a seated position to complete dressing. LB Dressing, Level of [place]: verbal cues required, supervised Assistive Device: none LB Dressing Assess/Train, Position: sitting, standing LB Dressing Assess/Train, Impairments: impaired balance, motor control impaired, decreased flexibility, postural control impaired distant supervision Toileting, Level of [place]: supervised Assistive Device: none Toileting Assess/Train, Position: standing Toileting Assess/Train, Impairments: impaired balance Retrieved toiletries for post showering needs. Grooming, Level of [place]: modified independent Assistive Device: none Grooming Assess/Train, Position: standing Grooming Assess/Train, Impairments: impaired balance Functional Endurance Good Cognitive Retrieved clothing/toiletries for showering/grooming. Post initial instruction pt required prompt to initate the task of retrieving clothing. He retrieved socks and underwear and to iletries, no addt'l clothing. Leading prompts x 3 required to retrieve remainder of clothin g- "Are you going to wear a hospital gown after your shower?" Follows Commands/Answers Questions: able to follow single-step instructions, needs cueing, needs increased time, needs repetition Personal Safety: decreased awareness, need for safety, decreased insight to deficits, impul sive, unaware of consequences of deficits Short/Hourly Shift Manager Memory: moderate impairment, short term memory, requires frequent cues, sev ere impairment, prison memory, decreased recall, biographical info Executive Function Skills: organizational issues, planning issues, lack of self monitoring , impulsivity, insight/awareness issues Bed Mobility no physcial assist in<>out of bed Assistive Device: none Roll Left, Level of [place]: modified independent Roll Right, Level of [place]: modified independent Supine to Sit, Level of [place]: independent Sit to Supine, Level of [place]: independent Safety Issues: cognitive deficits limit understanding Impairments: coordination impaired Transfers Reduced awareness of balance deficits, especially when dual-tasking, turning. Bed-Chair, Level of [place]: supervised Chair-Bed, Level of [place]: supervised [id number], Assistive Device: cane (straight, single point) Sit-Stand, Level of [place]: modified independent Stand-Sit, Level of [place]: modified independent [id number], Assistive Device: cane (straight, single point) Toilet, Level of [place]: supervised Toilet, Assistive Device: cane (straight, single point), grab bars Walk-in shower, Level of [place]: supervised Walk-in shower, Assistive Device: cane (straight, single point), grab bars, shower chair Safety Issues: balance decreased during turns, sequencing ability decreased, weight-shiftin g ability decreased Impairments: impaired balance, coordination impaired, postural control impaired OT Goal Review Date Most Recent Value STG Review Date 09/04/17 at 08/31/2017 1704 LTG Review Date 09/11/17 at 08/31/2017 1704 Grooming Goal Most Recent Value STG Status met at 09/01/2017 0851 STG [place] Level supervised at 08/31/2017 1704 LTG Status met at 09/05/2017 0920 LTG [place] Level modified independent at 08/31/2017 1704 LB Dressing Goal Most Recent Value STG Status met at 09/02/2017 0906 STG [place] Level supervised at 08/31/2017 1704 LTG Status progressing at 09/05/2017 0920 LTG [place] Level modified independent at 08/31/2017 1704 Toilet Transfer Goal Most Recent Value STG Status met at 09/01/2017 0851 STG [place] Level supervised at 08/31/2017 1704 LTG Status progressing at 09/05/2017 0920 LTG [place] Level modified independent at 08/31/2017 1704 Tub/Shower Transfer Goal Most Recent Value Tub/Shower Type walk in shower stall at 09/05/2017 0920 STG Status met at 09/02/2017 0906 STG [place] Level contact guard assist at 08/31/2017 1704 STG Assistive Device shower chair, grab bars at 09/01/2017 1558 LTG Status revised at 09/05/2017 0920 LTG [place] Level -- [Distant supervision] at 09/05/2017 0920 Additional Goals #1 OT Most Recent Value STG Status continued at 09/05/2017 0920 STG pt will demonstrate simple meal preparation task with min assist and v/c for safety to promote IADLs at 09/02/2017 1423 LTG Status continued at 09/05/2017 0920 LTG pt will demonstrate simple meal preparation task with superviison assist and 1 v/c for safety to promote IADLs at 09/02/2017 1423 Electronically signed by: Dayanna Allison OT, 09/05/2017 10:19 lan of Care - Kathleen Prakash, JENNIFER - 09/05/2017 2:24 AM PDTProblem: Patient Care Overview (Adult) Goal: Care Team Goals & Evaluation PROBLEM-RELATED GOALS: Will be mod ind in room by 09/07/17 Will have a BM every other day by 09/04/17 Will have not falls during hospital stay Cognitive function will return to baseline by 09/07/17 Pt will be independent in functional transfers and ambulation w/o AD. Dennis will maintain adequate oxygenation via oximetry with SpO2 >90%. Pt will increase use of compensatory strategies and cognitive communication functions by STRATEGY TO ACHIEVE GOALS: Encourage ambulation and have pt do all assigned therapies Administer bowel meds if no BM by day 2 Ensure bed alarm is on and call light is within reach. encourage pt to express wants and ideas and give extra time if needed - Full participation in PT session in functional mobility training Monitor saturations via oximetry and titrate to order as indicated. -Pt will participate in speech therapy Outcome: Unchanged Goal Evaluation: "Les" slept well after receiving Ambien per his request, oriented by forgetneil, BM 8, kamran ortez for cough, strengths equal bilaterally, no deficits noted lan of Care - Shonda Tali grady, COTTON BROKER - 09/04/2017 5:29 PM PDTProblem: Discharge Planning Goal: Patient will be discharged in a safe manner This CM met with the patient's spouse and she will participate in family training on Saturd ay at 1300 and 1345. The patient and his spouse (Brie) have been 16 years and she' s enjoyed a good relationship with the patient's daughter, Chloe, until recently. Brie sta jaqueline that she's unsure how much assistance Chloe will be able to provide to her father post d ischarge. This CM discussed services and resources with Brie but she stated that she would prefer to get her home, discover his needs, and then make arrangements. CM will need to contact therapies next week to see if the patient and Brie will need more assistance in the home post discharge. CM to continue following for d/c planning. Electronically signed by: ELIOT Rossi 09/04/2017 17:29 lan of Care - Marcio weiss, Jessenia Draper RN - 09/04/2017 4:56 PM PDTProblem: Patient Care Overview (Adult) Goal: Care Team Goals & Evaluation PROBLEM-RELATED GOALS: Will be mod ind in room by 09/07/17 Will have a BM every other day by 09/04/17 Will have not falls during hospital stay Cognitive function will return to baseline by 09/07/17 Pt will be independent in functional transfers and ambulation w/o AD. Dennis will maintain adequate oxygenation via oximetry with SpO2 >90%. Pt will increase use of compensatory strategies and cognitive communication functions by STRATEGY TO ACHIEVE GOALS: Encourage ambulation and have pt do all assigned therapies Administer bowel meds if no BM by day 2 Ensure bed alarm is on and call light is within reach. encourage pt to express wants and ideas and give extra time if needed - Full participation in PT session in functional mobility training Monitor saturations via oximetry and titrate to order as indicated. -Pt will participate in speech therapy Outcome: Improving Goal Evaluation: Pt continues to be forgetful and get out of bed or out of the chair without assistance or his cane. Pt is mobilizing with therapy and cane. Pt is complaining of scrape on ear, ointme nt ordered. He swallows his pills w/ water. Bed alarm and chair alarm in use call light with in reach. lan of Care - Dayanna Barfield OT - 09/04/2017 3:30 PM PDTFormatting of this note might be different fr om the original. Problem: Patient Care Overview (Adult) Goal: Care Team Goals & Evaluation PROBLEM-RELATED GOALS: Will be mod ind in room by 09/07/17 Will have a BM every other day by 09/04/17 Will have not falls during hospital stay Cognitive function will return to baseline by 09/07/17 Pt will be independent in functional transfers and ambulation w/o AD. Dennis will maintain adequate oxygenation via oximetry with SpO2 >90%. Pt will increase use of compensatory strategies and cognitive communication functions by STRATEGY TO ACHIEVE GOALS: Encourage ambulation and have pt do all assigned therapies Administer bowel meds if no BM by day 2 Ensure bed alarm is on and call light is within reach. encourage pt to express wants and ideas and give extra time if needed - Full participation in PT session in functional mobility training Monitor saturations via oximetry and titrate to order as indicated. -Pt will participate in speech therapy IRF Occupational Therapy Plan of Care Treatment Note Summary: Dennis has been participating in occupational therapy for treatment of Decrease d ADL independence and functional mobility s/p admission for CVA. Hx of multiple back surg eries and has an implated spine stimulator for pain control.. Emphasis of session included meal selection on menu for scanning, organization, recall of information provided. Pt requi red moderate cues to ensure he had fully scanned menu, selected all his choices, identified specific menu items etc. Required extensive time to complete the menu and problem solve the missing parts. Dennis will benefit from continued therapeutic intervention to address ongoing impairments and increase safety and independence with activities necessary for safe discharge. Refer be low for specific details regarding functional levels. Occupational Therapy Discharge Recommendations are: Recommended discharge disposition: home with assist Post discharge occupational therapy recommendation: home health Equipment Recommendations: shower chair, grab bars Planned Interventions:ADL retraining, IADL retraining, balance training, cognitive retraini ng, neuromuscular re-education Recommended Frequency: Patient Status/Goals: Reflects last filed data and may be from multiple contributors. Cognitive Filled a menu out. Pt required ~5 min per section- breakfast/lunch/dinner- for full comple tion. Then, pt was instructed to scan his selections to ensure he had gotten everything com pleted as there areas missing. Will revisit menu completion tomorrow AM w/ pt to monitor co nsistency for scanning, full completion, identifying specific info ie 2% mild, type of juice , etc. Bed Mobility no physcial assist in<>out of bed Assistive Device: none Roll Left, Level of [place]: modified independent Roll Right, Level of [place]: modified independent Supine to Sit, Level of [place]: independent Sit to Supine, Level of [place]: independent Safety Issues: cognitive deficits limit understanding Impairments: coordination impaired OT Goal Review Date Most Recent Value STG Review Date 09/04/17 at 08/31/2017 1704 LTG Review Date 09/11/17 at 08/31/2017 1704 Additional Goals #1 OT Most Recent Value STG Status continued at 09/04/2017 1756 STG pt will demonstrate simple meal preparation task with min assist and v/c for safety to promote IADLs at 09/02/2017 1423 LTG Status continued at 09/04/2017 1756 LTG pt will demonstrate simple meal preparation task with superviison assist and 1 v/c for safety to promote IADLs at 09/02/2017 1423 Electronically signed by: Dayanan Allison OT, 09/04/2017 17:58 lan of Care - Col Odessa cotto, CITY CLERK - 09/04/2017 2:00 PM PDT Problem: Patient Care Overview (Adult) Goal: Care Team Goals & Evaluation PROBLEM-RELATED GOALS: Will be mod ind in room by 09/07/17 Will have a BM every other day by 09/04/17 Will have not falls during hospital stay Cognitive function will return to baseline by 09/07/17 Pt will be independent in functional transfers and ambulation w/o AD. Dennis will maintain adequate oxygenation via oximetry with SpO2 >90%. Pt will increase use of compensatory strategies and cognitive communication functions by STRATEGY TO ACHIEVE GOALS: Encourage ambulation and have pt do all assigned therapies Administer bowel meds if no BM by day 2 Ensure bed alarm is on and call light is within reach. encourage pt to express wants and ideas and give extra time if needed - Full participation in PT session in functional mobility training Monitor saturations via oximetry and titrate to order as indicated. -Pt will participate in speech therapy Outcome: Improving IRF Physical Therapy Plan of Care Treatment Note Summary: Dennis has been participating in physical therapy for treatment of Gait instabili ty, imapired balance, dec.functional mobility d/t CVA. Hx of multiple back surgeries and peñaloza s an implated spine stimulator for pain control.. Emphasis of session included gait and bal ance training. Patient demonstrates progress towards functional goals as evidenced by perfo rmed DGI, balance on airex with ball toss, 2 LOB but recovered. . Remaining barriers to dis charge and functional limitations include decreased insight into safety and deficits, decrea sed functional activity tolerance, stairs at home, not able to navigate stairs, demonstratin g need for 24/ supervision and medical status. Dynamic Gait Index: Dennis scored 18/24 on the Dynamic Gait Index (with straight cane), indicating he is a high fall risk. Interpretation: - Predicts fall risk <19 = high fall risk 19-22 = moderate fall risk > 22 = low fall risk <19/24 = predictive of falls in elderly >22/24 = more likely to be safe ambulator For more information, please visit: [email or web address] Dennis will benefit from continued therapeutic intervention to address ongoing impairments and increase safety and independence with activities necessary for safe discharge. Refer be low for specific details regarding functional levels. Physical Therapy Discharge Recommendations are: Recommended discharge disposition: (ILF with spouse) Post discharge physical therapy recommendation: home health Equipment Recommendations: (TBD) Planned Interventions: balance training, bed mobility training, gait training, home exerci se program, transfer training, patient/family education, strengthening, stair training, daxa r coordination training Frequency: daily (1-2x/day) Patient Status/Goals: Reflects last filed data and may be from multiple contributors. Bed Mobility extra time, no physical assistance provided Assistive Device: none Roll Left, Level of [place]: independent Roll Right, Level of [place]: independent Supine to Sit, Level of [place]: independent Sit to Supine, Level of [place]: independent Safety Issues: cognitive deficits limit understanding Impairments: coordination impaired Transfers supervision for safety d/t episodes of LOB when pt quickly turns. Bed-Chair, Level of [place]: supervised Chair-Bed, Level of [place]: supervised [id number], Assistive Device: cane (straight, single point) Sit-Stand, Level of [place]: modified independent Stand-Sit, Level of [place]: modified independent [id number], Assistive Device: cane (straight, single point) Safety Issues: balance decreased during turns Impairments: impaired balance, coordination impaired, postural control impaired Gait Minimal LOB when pt quickly turns mostly to (R). Cues to slow down when turning. trial 4W W. Pt demo improve stability especially when turning but pt does not want to use AD at home . Level of [place]: supervised Assistive Device: none Distance (feet): 500 Gait Deviations: step length decreased, [id number] clearance decreased Impairments: strength decreased, impaired balance, coordination impaired, postural control impaired Stairs no LOB, demo safe technique with AD this am session. Number of Stairs: 4 Handrail Location: left side (ascending) Level of [place]: modified independent Assistive Device: 1 rail, cane (straight, single point) Technique Used: step over step (ascending), step over step (descending) Safety Issues: balance decreased during turns Impairments: impaired balance, coordination impaired Therapeutic Exercise Balance exercises: sidestep, walk forward, throw, catch, speed walk, head turns, multiple s teps/stairs, step over obstacles, narrow base of support Repetitions: boxing, ball toss on airex. Other exercises (description): scifit 5 Functional Endurance Good PT Goal Review Date Most Recent Value STG Review Date 09/03/17 at 08/31/2017 1545 LTG Review Date 09/12/17 at 08/31/2017 1545 [id number] Goal Most Recent Value STG Status met at 09/02/2017 1500 STG [place] Level modified independent at 08/31/2017 1545 STG Assistive Device none at 08/31/2017 1545 [id number]-Xtl Goal Most Recent Value STG Status met at 09/03/2017 0859 STG [place] Level supervised at 08/31/2017 1545 STG Assistive Device none at 08/31/2017 1545 LTG Status progressing at 09/04/2017 1350 LTG [place] Level independent at 08/31/2017 1545 LTG Assistive Device cane (straight, single point) at 09/03/2017 0859 Gait Goal Most Recent Value STG Status met at 09/03/2017 0859 STG [place] Level stand by assist at 08/31/2017 1545 STG Assistive Device none, cane (straight, single point) at 08/31/2017 1545 STG Distance (feet) 200' at 08/31/2017 1545 STG Comments none vs SPC at 08/31/2017 1545 LTG Status progressing at 09/04/2017 1350 LTG [place] Level independent at 08/31/2017 1545 LTG Assistive Device cane (straight, single point) at 09/03/2017 0859 Stair Goal Most Recent Value STG Status met at 09/03/2017 0859 STG [place] Level supervised at 08/31/2017 1545 STG Assistive Device 2 rails at 08/31/2017 1545 STG Number of Stairs 12 at 08/31/2017 1545 LTG Status progressing at 09/04/2017 1350 LTG [place] Level modified independent at 08/31/2017 1545 LTG Assistive Device 2 rails at 08/31/2017 1545 LTG Number of Stairs 12 at 08/31/2017 1545 Additional Goal #1 PT Most Recent Value STG Status not met at 09/04/2017 0944 STG Improve DGI score to to dec.fall risk at 08/31/2017 1545 LTG Status new at 09/04/2017 0944 LTG mprove DGI score to to dec.fall risk at 09/04/2017 0944 Electronically signed by: Odessa Anguiano PTA, 09/04/2017 13:55 Goal Evaluation: lan of Care - Anuradha Angel, PT - 09/04/2017 9:44 AM PDT Problem: Patient Care Overview (Adult) Goal: Care Team Goals & Evaluation PROBLEM-RELATED GOALS: Will be mod ind in room by 09/07/17 Will have a BM every other day by 09/04/17 Will have not falls during hospital stay Cognitive function will return to baseline by 09/07/17 Pt will be independent in functional transfers and ambulation w/o AD. Dennis will maintain adequate oxygenation via oximetry with SpO2 >90%. Pt will increase use of compensatory strategies and cognitive communication functions by STRATEGY TO ACHIEVE GOALS: Encourage ambulation and have pt do all assigned therapies Administer bowel meds if no BM by day 2 Ensure bed alarm is on and call light is within reach. encourage pt to express wants and ideas and give extra time if needed - Full participation in PT session in functional mobility training Monitor saturations via oximetry and titrate to order as indicated. -Pt will participate in speech therapy Outcome: Improving IRF Physical Therapy Plan of Care Treatment Note Summary: Dennis has been participating in physical therapy for treatment of Gait instabi lity, imapired balance, dec.functional mobility d/t CVA. Hx of multiple back surgeries and has an implated spine stimulator for pain control.. Emphasis of session included gait train ing, stairs and transfer training, Thera ex. Pt's daughter present during tx session and pro vided information on pt's PLOF. She reported terminal supervisor memory impairment is something new a nd pt does not have it prior to stroke. Trial 4WW to add stability when walking but pt does not like it. Patient demonstrates progress towards functional goals as evidenced by improv ing gait and balance using SPC.. Remaining barriers to discharge and functional limitations include decreased insight into safety and deficits, decreased functional activity tolerance , decreased functional transfers, demonstrating need for 24/7 supervision and not yet able t o mobilize at level safe for home discharge. Dennis will benefit from continued therapeutic intervention to address ongoing impairments and increase safety and independence with activities necessary for safe discharge. Refer be low for specific details regarding functional levels. Physical Therapy Discharge Recommendations are: Recommended discharge disposition: (ILF with spouse) Post discharge physical therapy recommendation: home health Equipment Recommendations: (TBD) Planned Interventions: balance training, bed mobility training, gait training, home exerci se program, transfer training, patient/family education, strengthening, stair training, daxa r coordination training Frequency: daily (1-2x/day) Patient Status/Goals: Reflects last filed data and may be from multiple contributors. Bed Mobility extra time, no physical assistance provided Assistive Device: none Roll Left, Level of [place]: independent Roll Right, Level of [place]: independent Supine to Sit, Level of [place]: independent Sit to Supine, Level of [place]: independent Safety Issues: cognitive deficits limit understanding Impairments: coordination impaired Transfers supervision for safety d/t episodes of LOB when pt quickly turns. Bed-Chair, Level of [place]: supervised Chair-Bed, Level of [place]: supervised [id number], Assistive Device: cane (straight, single point) Sit-Stand, Level of [place]: modified independent Stand-Sit, Level of [place]: modified independent [id number], Assistive Device: cane (straight, single point) Safety Issues: balance decreased during turns Impairments: impaired balance, coordination impaired, postural control impaired Gait Minimal LOB when pt quickly turns mostly to (R). Cues to slow down when turning. trial 4W W. Pt demo improve stability especially when turning but pt does not want to use AD at home . Level of [place]: stand by assist, verbal cues required Assistive Device: cane (straight, single point) Distance (feet): 500' + 200' Gait Deviations: step length decreased, wmz-da-zmdan clearance decreased Impairments: strength decreased, impaired balance, coordination impaired, postural control impaired Stairs no LOB, demo safe technique with AD this am session. Number of Stairs: 12 Handrail Location: left side (ascending) Level of [place]: supervised Assistive Device: 1 rail, cane (straight, single point) Technique Used: step over step (descending), step over step (ascending) Safety Issues: balance decreased during turns Impairments: impaired balance, coordination impaired Therapeutic Exercise SciFit recumbent stepper x 15 mins x level 1 on hill mode to improve coordination, strength and activity tolerance Standing exercises: shallow squats Repetitions: 10 x 1 PT Goal Review Date Most Recent Value STG Review Date 09/03/17 at 08/31/2017 1545 LTG Review Date 09/12/17 at 08/31/2017 1545 Niyjhs-Sgh-Hxsvys Goal Most Recent Value STG Status met at 09/02/2017 1500 STG [place] Level modified independent at 08/31/2017 1545 STG Assistive Device none at 08/31/2017 1545 Zvx-Txblg-Onx Goal Most Recent Value STG Status met at 09/03/2017 0859 STG [place] Level supervised at 08/31/2017 1545 STG Assistive Device none at 08/31/2017 1545 LTG Status progressing at 09/04/2017 0944 LTG [place] Level independent at 08/31/2017 1545 LTG Assistive Device cane (straight, single point) at 09/03/2017 0859 Gait Goal Most Recent Value STG Status met at 09/03/2017 0859 STG [place] Level stand by assist at 08/31/2017 1545 STG Assistive Device none, cane (straight, single point) at 08/31/2017 1545 STG Distance (feet) 200' at 08/31/2017 1545 STG Comments none vs SPC at 08/31/2017 1545 LTG Status progressing at 09/04/2017 0944 LTG [place] Level independent at 08/31/2017 1545 LTG Assistive Device cane (straight, single point) at 09/03/2017 0859 Stair Goal Most Recent Value STG Status met at 09/03/2017 0859 STG [place] Level supervised at 08/31/2017 1545 STG Assistive Device 2 rails at 08/31/2017 1545 STG Number of Stairs 12 at 08/31/2017 1545 LTG Status progressing at 09/04/2017 0944 LTG [place] Level modified independent at 08/31/2017 1545 LTG Assistive Device 2 rails at 08/31/2017 1545 LTG Number of Stairs 12 at 08/31/2017 1545 Additional Goal #1 PT Most Recent Value STG Status not met at 09/04/2017 0944 STG Improve DGI score to to dec.fall risk at 08/31/2017 1545 LTG Status new at 09/04/2017 0944 LTG mprove DGI score to to dec.fall risk at 09/04/2017 0944 Electronically signed by: ANURADHA TNAG, PT, 09/04/2017 10:45 lan of Care - La Jacinto, OT - 09/04/2017 8:48 AM PDT Problem: Patient Care Overview (Adult) Goal: Care Team Goals & Evaluation PROBLEM-RELATED GOALS: Will be mod ind in room by 09/07/17 Will have a BM every other day by 09/04/17 Will have not falls during hospital stay Cognitive function will return to baseline by 09/07/17 Pt will be independent in functional transfers and ambulation w/o AD. Dennis will maintain adequate oxygenation via oximetry with SpO2 >90%. Pt will increase use of compensatory strategies and cognitive communication functions by STRATEGY TO ACHIEVE GOALS: Encourage ambulation and have pt do all assigned therapies Administer bowel meds if no BM by day 2 Ensure bed alarm is on and call light is within reach. encourage pt to express wants and ideas and give extra time if needed - Full participation in PT session in functional mobility training Monitor saturations via oximetry and titrate to order as indicated. -Pt will participate in speech therapy IRF Occupational Therapy Plan of Care Treatment Note Summary: Dennis has been participating in occupational therapy for treatment of Decrease d ADL independence and functional mobility s/p admission for CVA. Hx of multiple back surg eries and has an implated spine stimulator for pain control. Emphasis of session included sh owering, t/fs, and total body dressing, and grooming. Patient demonstrates progress towards functional goals as evidenced by pt supervision for generalized safety. Remaining barriers to discharge and functional limitations include decreased insight into safety and deficits, decreased functional transfers, decreased ability to perform IADLs, decreased ability to pe rform medication management, demonstrating need for 24/7 supervision and not yet able to mob ilize at level safe for home discharge. Imbalance and decreased safety awareness requiring s upervision for all ADLs and IADLs at this time. Dennis will benefit from continued therapeutic intervention to address ongoing impairments and increase safety and independence with activities necessary for safe discharge. Refer be low for specific details regarding functional levels. Occupational Therapy Discharge Recommendations are: Recommended discharge disposition: home with assist Post discharge occupational therapy recommendation: home health Equipment Recommendations: shower chair, grab bars Planned Interventions:ADL retraining, IADL retraining, balance training, cognitive retraini ng, neuromuscular re-education Recommended Frequency: Patient Status/Goals: Reflects last filed data and may be from multiple contributors. ADLs ST reported to this therapist pt was requesting a shower this pm. Pt resting supine and sta ting that he wants to shower. Pt seen for shower,dress and groom this pm supervision with cueing to sit for safety when washing hair ( shutting eyes) education to p erform shower predominantly insitting. pt often wanted to stand. supervision required for st anding. Bathing, Level of [place]: supervised, verbal cues required Assistive Device: hand-held shower head, shower chair with back Bathing Assess/Train, Position: sitting, standing Bathing Assess/Train, Impairments: impaired balance, coordination impaired set-up assist only. UB Dressing, Level of [place]: set up required Assistive Device: none UB Dressing Assess/Train, Position: sitting UB Dressing Assess/Train, Impairments: impaired balance, motor control impaired supervision and cueing for safety to perform tasks in sitting. LB Dressing, Level of [place]: verbal cues required, supervised Assistive Device: none LB Dressing Assess/Train, Position: sitting, standing LB Dressing Assess/Train, Impairments: impaired balance, motor control impaired distant supervision Toileting, Level of [place]: supervised Assistive Device: none Toileting Assess/Train, Position: standing Toileting Assess/Train, Impairments: impaired balance distant supervision for brushing teeth, hair, shvaing and washing face Grooming, Level of [place]: supervised Assistive Device: none Grooming Assess/Train, Position: standing Grooming Assess/Train, Impairments: impaired balance Pt able to remove lids and open packets, but pt may need help selecting his menu d/t items missed like butter for toast, jelly, and sugar for his hot ceral. Self-Feeding, Level of [place]: stand by assist Assistive Device: none Self-Feeding Assess/Train, Position: sitting Self-Feeding Assess/Train, Impairments: (deficits in STM and problem solving) Bed Mobility no physcial assist in<>out of bed Assistive Device: none Roll Left, Level of [place]: modified independent Roll Right, Level of [place]: modified independent Supine to Sit, Level of [place]: independent Sit to Supine, Level of [place]: independent Safety Issues: cognitive deficits limit understanding Impairments: coordination impaired Transfers supervision for generalized safety. cueing to slow down and for use of cane as pt would oft en set aside. Bed-Chair, Level of [place]: supervised Chair-Bed, Level of [place]: supervised Sra-Fuibr-Tty, Assistive Device: cane (straight, single point) Sit-Stand, Level of [place]: modified independent Stand-Sit, Level of [place]: modified independent [id number], Assistive Device: cane (straight, single point) Toilet, Level of [place]: supervised Toilet, Assistive Device: cane (straight, single point), grab bars Walk-in shower, Level of [place]: supervised, verbal cues required Walk-in shower, Assistive Device: cane (straight, single point), grab bars, shower chair Safety Issues: balance decreased during turns Impairments: impaired balance, coordination impaired, postural control impaired ROM L UE ROM: WFL R UE ROM: WFL Strength initial scores performed on 4/25/18lbs dynamometer: R:23,30,32lbs L:65,63,64 seconds 9 -hole peg: R:36 L:35.72 seconds L UE Strength: WFL R UE Strength: 4/5 OT Goal Review Date Most Recent Value STG Review Date 09/04/17 at 08/31/2017 1704 LTG Review Date 09/11/17 at 08/31/2017 1704 Grooming Goal Most Recent Value STG Status met at 09/01/2017 0851 STG [place] Level supervised at 08/31/2017 1704 LTG Status progressing at 09/04/2017 0816 LTG [place] Level modified independent at 08/31/2017 1704 LB Dressing Goal Most Recent Value STG Status met at 09/02/2017 0906 STG [place] Level supervised at 08/31/2017 1704 LTG Status progressing at 09/04/2017 0816 LTG [place] Level modified independent at 08/31/2017 1704 Toilet Transfer Goal Most Recent Value STG Status met at 09/01/2017 0851 STG [place] Level supervised at 08/31/2017 1704 LTG Status progressing at 09/04/2017 0816 LTG [place] Level modified independent at 08/31/2017 1704 Tub/Shower Transfer Goal Most Recent Value Tub/Shower Type tub/shower combo at 08/31/2017 1704 STG Status met at 09/02/2017 0906 STG [place] Level contact guard assist at 08/31/2017 1704 STG Assistive Device shower chair, grab bars at 09/01/2017 1558 LTG Status met at 09/03/2017 1430 LTG [place] Level supervised at 08/31/2017 1704 Additional Goals #1 OT Most Recent Value STG Status new at 09/02/2017 1423 STG pt will demonstrate simple meal preparation task with min assist and v/c for safety to promote IADLs at 09/02/2017 1423 LTG pt will demonstrate simple meal preparation task with superviison assist and 1 v/c for safety to promote IADLs at 09/02/2017 1423 Electronically signed by: La Jacinto OT, 09/04/2017 8:46 lan of Robbie - Frances Allison RN - 09/04/2017 4:20 AM PDTProblem: Patient Care Overview (Adult) Goal: Care Team Goals & Evaluation PROBLEM-RELATED GOALS: Will be mod ind in room by 09/07/17 Will have a BM every other day by 09/04/17 Will have not falls during hospital stay Cognitive function will return to baseline by 09/07/17 Pt will be independent in functional transfers and ambulation w/o AD. Dennis will maintain adequate oxygenation via oximetry with SpO2 >90%. Pt will increase use of compensatory strategies and cognitive communication functions by STRATEGY TO ACHIEVE GOALS: Encourage ambulation and have pt do all assigned therapies Administer bowel meds if no BM by day 2 Ensure bed alarm is on and call light is within reach. encourage pt to express wants and ideas and give extra time if needed - Full participation in PT session in functional mobility training Monitor saturations via oximetry and titrate to order as indicated. -Pt will participate in speech therapy Outcome: Improving Goal Evaluation: BM this shift, remains impulsive and gets oob without calling gait slightly unsteady. Slept well, guifenison given for director of knowledge management cough with good relief. lan of [facility] - Logan Fuller RN - 09/03/2017 5:30 PM PDTProblem: Patient Care Overview (Adult) Goal: Care Team Goals & Evaluation PROBLEM-RELATED GOALS: Will be mod ind in room by 09/07/17 Will have a BM every other day by 09/04/17 Will have not falls during hospital stay Cognitive function will return to baseline by 09/07/17 Pt will be independent in functional transfers and ambulation w/o AD. Dennis will maintain adequate oxygenation via oximetry with SpO2 >90%. Pt will increase use of compensatory strategies and cognitive communication functions by STRATEGY TO ACHIEVE GOALS: Encourage ambulation and have pt do all assigned therapies Administer bowel meds if no BM by day 2 Ensure bed alarm is on and call light is within reach. encourage pt to express wants and ideas and give extra time if needed - Full participation in PT session in functional mobility training Monitor saturations via oximetry and titrate to order as indicated. -Pt will participate in speech therapy Outcome: Improving Goal Evaluation: Pt is A&O x3, impulsive at times and forgetful at times, encouraged to use call light for help. Pt has been passing gas, no BM today. Pt has been free form falls today. No neuro defi cit noted, muscle strength 5/5 to all extremities. Chronic numbness to bilateral LE d/t back surgeries in the past Pt stated. Pt still c/o intermittent cough, Robitussin was given. lan of Care - Jackeline Bentley, Speech Pathologist - 09/03/2017 5:24 PM PDTFormatting of this note might be diffe rent from the original. Problem: Patient Care Overview (Adult) Goal: Care Team Goals & Evaluation PROBLEM-RELATED GOALS: Will be mod ind in room by 09/07/17 Will have a BM every other day by 09/04/17 Will have not falls during hospital stay Cognitive function will return to baseline by 09/07/17 Pt will be independent in functional transfers and ambulation w/o AD. Dennis will maintain adequate oxygenation via oximetry with SpO2 >90%. Pt will increase use of compensatory strategies and cognitive communication functions by STRATEGY TO ACHIEVE GOALS: Encourage ambulation and have pt do all assigned therapies Administer bowel meds if no BM by day 2 Ensure bed alarm is on and call light is within reach. encourage pt to express wants and ideas and give extra time if needed - Full participation in PT session in functional mobility training Monitor saturations via oximetry and titrate to order as indicated. -Pt will participate in speech therapy Outcome: Improving IRF Speech Therapy Plan of Care Treatment Note Summary: Pt sitting upright in bed for cognitive treatment s/p admit to IRF following CVA. Pt participated in MoCA (09/02/17) with a score of 14/30 indicating moderate cognitive impai rment. Pt participated in structured cognitive and language tasks. When given category, pt a ble to name 5 items 2x. LEARNING SPECIALIST provided education of compensatory strategies for improved word finding. LEARNING SPECIALIST discussed with pt compensatory strategies for improved memory, attention, and o rganization. Pt reports that he uses some of these at home wit his . Pt presents with ma rked memory loss, disorientation to time and place, decreased ability to make judgments, and decreased ability to function independently, requiring assistance with personal cares. Pt o ften forgot what he was going to say. ST discussed using post it notes or written cues to he lp remind him. OT/PT provided written cues for increased call light use in room. LEARNING SPECIALIST rec's c ontinued cognitive linguistic therapies to address attention, word finding, generative namin g, and compensatory strategies for improved memory and attention. Speech Language Pathology Discharge Recommendations are: Recommended discharge disposition: other (see comments) (TBD) Post discharge speech language pathology recommendation: continue LEARNING SPECIALIST tx for cognitive-sebas guistic (TBD) Planned Interventions: compensatory strategies, patient/caregiver education Recommended Frequency: 3 times/wk Patient Status/Goals: Reflects last filed data and may be from multiple contributors. Swallow Recommendations Recommended Solid Texture: regular Recommended Liquid Texture: thin liquids Recommended Medication Delivery: whole pills with thin liquids Recommended Feeding/Eating Techniques: alternate between small bites and sips of food/liqui d, oral care before and after each meal, maintain upright posture during/after eating for 30 mins, one small sip or bite at a time, slow rate, limit distractions Cognitive MoCA score of 14/30 Mood/Behavior: cooperative Orientation: disoriented to, place, situation Speech: clear, spontaneous Follows Commands/Answers Questions: able to follow single-step instructions, needs cueing, needs increased time, needs repetition Short/Hourly Shift Manager Memory: moderate impairment, short term memory, requires frequent cues, sev ere impairment, prison memory, decreased recall, biographical info Cognition Goal Most Recent Value STG Status continued at 09/03/2017 171 STG Pt will increase immediate memory skills with 80% accuracy at 09/03/20171711 Additional Goals #1 LEARNING SPECIALIST Most Recent Value STG Status continued at 09/03/2017 171 STG Pt will increase use of compensatory strategies to 75% accuracy at 09/03/2017 171 Additional Goals #2 LEARNING SPECIALIST Most Recent Value STG Status continued at 09/03/2017 171 STG Pt will increase focused attention to 80% accuracy. at 09/03/2017 1712 Electronically signed by: Jackeline Bentley, Speech Pathologist, 09/03/2017 17:17 lan o Dat Brizuela, ALUMNI RELATIONS OFFICER - 09/03/2017 5:00 PM PDTFormatting of this note might be diffe rent from the original. Problem: Patient Care Overview (Adult) Goal: Care Team Goals & Evaluation PROBLEM-RELATED GOALS: Will be mod ind in room by 09/07/17 Will have a BM every other day by 09/04/17 Will have not falls during hospital stay Cognitive function will return to baseline by 09/07/17 Pt will be independent in functional transfers and ambulation w/o AD. Dennis will maintain adequate oxygenation via oximetry with SpO2 >90%. STRATEGY TO ACHIEVE GOALS: Encourage ambulation and have pt do all assigned therapies Administer bowel meds if no BM by day 2 Ensure bed alarm is on and call light is within reach. encourage pt to express wants and ideas and give extra time if needed - Full participation in PT session in functional mobility training Monitor saturations via oximetry and titrate to order as indicated. Outcome: Unchanged Goal Evaluation: Severity Score 2 Class 1 Severity Score 0-4 ITEM 0 1 2 3 4 1 Respiratory History No Smoking history Current tobacco use Up to 10 Pack year history. Simple home regimen Known Pulmonary Disease 20 pack year history Complex Home regimen 30+ pack year history Severe Pulmonary Disease or exacerbation 0 Surgery Status (current admission) No surgery Minor surgery Lower abdominal rib fractures Thoracic or uppe r abdominal Thoracic with pulmonary disease or Central Nervous System 1 Chest X-RAY Clear or Normal baseline Unavailable Improving/clearing Abnormal, Unilateral or mild Infiltrates or atelectasis, Chronic changes Infiltrates mild bilateral or unilateral or pleural effusions extensive Inf iltrates, atelectasis or pleural effusions, pneumothorax 0 Respiratory Pattern Regular pattern Respiratory Rate:8-20 Increased Respiratory Rate, labored Dyspnea on exertion, irregular pattern Use of accessory muscles, prolonged expirato ry phase nasal flaring Severe Dyspnea , Purse Lip Breathing, Use of accessory muscles 0 Breath Sounds Clear Diminished unilaterally Diminished bilaterally &/or crackles Wheezing or Rhonchi &/or absent unilateral Absent bilaterally 0 Cough Strong, non productive Moderate, loose, productive Weak, non-productive Weak, ineffective Non-spontaneous or may require suctioning 0 Sputum None Scant / Thin White/clear Moderate Beige/ yellow Large / Thick Dark Green/Brown Copious / Plugs Hemoptysis aliya 0 LOC Alert, oriented, cooperative Disoriented, follows commands Obtunded, arousable, follo ws commands Obtunded, uncooperative, sedated Comatose 0 Oxygen Demand Room air Baseline 1-2 liters 3-6 liters >7 Liters Oxymizer to > 55% 60% or greater Total Severity Score (SS) Class 0-3 1 4-7 2 8-11 3 12-14 4 15+ 5 SpO2: 92 % on room air. Dennis did not need any additional therapies from me today. Breath sounds clear/diminished. lan of Care - Leonidas Irlanda CHRIS Weiss - 09/03/2017 4:33 PM PDT Problem: Patient Care Overview (Adult) Goal: Care Team Goals & Evaluation PROBLEM-RELATED GOALS: Will be mod ind in room by 09/07/17 Will have a BM every other day by 09/04/17 Will have not falls during hospital stay Cognitive function will return to baseline by 09/07/17 Pt will be independent in functional transfers and ambulation w/o AD. Dennis will maintain adequate oxygenation via oximetry with SpO2 >90%. STRATEGY TO ACHIEVE GOALS: Encourage ambulation and have pt do all assigned therapies Administer bowel meds if no BM by day 2 Ensure bed alarm is on and call light is within reach. encourage pt to express wants and ideas and give extra time if needed - Full participation in PT session in functional mobility training Monitor saturations via oximetry and titrate to order as indicated. Outcome: Improving IRF Occupational Therapy Plan of Care Treatment Note Summary: Dennis (pt goes byLes) has been participating in occupational therapy for treatme nt of Decreased ADL independence and functional mobility s/p admission for CVA. Hx of mu ltiple back surgeries and has an implated spine stimulator for pain control. Emphasis of s ession included pt requested a shower this pm and was seen for safety awarenes w/ fxl mobili ty,t/f's,shower,dress and groom.Patient demonstrates progress towards functional goals as evidenced by pt completing ADL's w/ SBA/cues. Remaining barriers to discharge and function al limitationsinclude Decreased safety awareness,STM, decreased insight into safety and de ficits, decreased functional activity tolerance, decreased ability to perform IADLs, decreas ed ability to perform medication management and demonstrating need for 24/7 supervision. Dennis will benefit from continued therapeutic intervention to address ongoing impairments and increase safety and independence with activities necessary for safe discharge. Refer b betoow for specific details regarding functional levels Occupational Therapy Discharge Recommendations are: Recommended discharge disposition: home with assist Post discharge occupational therapy recommendation: home health Equipment Recommendations: shower chair, grab bars Planned Interventions:ADL retraining, IADL retraining, balance training, cognitive retraini ng, neuromuscular re-education Recommended Frequency: Patient Status/Goals: Reflects last filed data and may be from multiple contributors. ADLs ST reported to this therapist pt was requesting a shower this pm. Pt resting supine and sta ting that he wants to shower. Pt seen for shower,dress and groom this pm Showered seated in shower chair w/ supervision Bathing, Level of [place]: stand by assist Assistive Device: hand-held shower head, shower chair with back Bathing Assess/Train, Position: sitting, standing Bathing Assess/Train, Impairments: impaired balance, coordination impaired dressed u/B w/ set up/supervised UB Dressing, Level of [place]: set up required, supervised Assistive Device: none UB Dressing Assess/Train, Position: sitting UB Dressing Assess/Train, Impairments: impaired balance, motor control impaired Decreased safety awarenes noted and requiered vc's to sit down on shower chair as he attemp jaqueline to doff/uche pants standing unsteadily LB Dressing, Level of [place]: verbal cues required, supervised Assistive Device: none LB Dressing Assess/Train, Position: sitting, standing LB Dressing Assess/Train, Impairments: impaired balance, motor control impaired Combed hair standing at sink supervised Grooming, Level of [place]: supervised Assistive Device: none Grooming Assess/Train, Position: standing Grooming Assess/Train, Impairments: impaired balance Functional Endurance Good Bed Mobility T/f'd on/off bed independent Assistive Device: none Supine to Sit, Level of [place]: independent Sit to Supine, Level of [place]: independent Safety Issues: cognitive deficits limit understanding Impairments: coordination impaired Transfers Ambulated to/from walk in shower w/ SBA/cues to slow down at corners and completed shower t /f>shower chair SBA/cues Walk-in shower, Level of [place]: verbal cues required, stand by assist Walk-in shower, Assistive Device: cane (straight, single point), grab bars, shower chair Safety Issues: balance decreased during turns Impairments: impaired balance, coordination impaired, postural control impaired OT Goal Review Date Most Recent Value STG Review Date 09/04/17 at 08/31/2017 1704 LTG Review Date 09/11/17 at 08/31/2017 1704 Grooming Goal Most Recent Value STG Status met at 09/01/2017 0851 STG [place] Level supervised at 08/31/2017 1704 LTG Status progressing at 09/03/2017 1430 LTG [place] Level modified independent at 08/31/2017 1704 LB Dressing Goal Most Recent Value STG Status met at 09/02/2017 0906 STG [place] Level supervised at 08/31/2017 1704 LTG Status progressing at 09/03/2017 1430 LTG [place] Level modified independent at 08/31/2017 1704 Toilet Transfer Goal Most Recent Value STG Status met at 09/01/2017 0851 STG [place] Level supervised at 08/31/2017 1704 LTG Status progressing at 09/03/2017 1009 LTG [place] Level modified independent at 08/31/2017 1704 Tub/Shower Transfer Goal Most Recent Value Tub/Shower Type tub/shower combo at 08/31/2017 1704 STG Status met at 09/02/2017 0906 STG [place] Level contact guard assist at 08/31/2017 1704 STG Assistive Device shower chair, grab bars at 09/01/2017 1558 LTG Status met at 09/03/2017 1430 LTG [place] Level supervised at 08/31/2017 1704 Additional Goals #1 OT Most Recent Value STG Status new at 09/02/2017 1423 STG pt will demonstrate simple meal preparation task with min assist and v/c for safety to promote IADLs at 09/02/2017 1423 LTG pt will demonstrate simple meal preparation task with superviison assist and 1 v/c for safety to promote IADLs at 09/02/2017 1423 Electronically signed by: CHRIS Chatterjee, 09/03/2017 16:29 lan of Care - Irlanda Graff COTA - 09/03/2017 4:27 PM PDT Problem: Patient Care Overview (Adult) Goal: Care Team Goals & Evaluation PROBLEM-RELATED GOALS: Will be mod ind in room by 09/07/17 Will have a BM every other day by 09/04/17 Will have not falls during hospital stay Cognitive function will return to baseline by 09/07/17 Pt will be independent in functional transfers and ambulation w/o AD. Dennis will maintain adequate oxygenation via oximetry with SpO2 >90%. STRATEGY TO ACHIEVE GOALS: Encourage ambulation and have pt do all assigned therapies Administer bowel meds if no BM by day 2 Ensure bed alarm is on and call light is within reach. encourage pt to express wants and ideas and give extra time if needed - Full participation in PT session in functional mobility training Monitor saturations via oximetry and titrate to order as indicated. Outcome: Improving IRF Occupational Therapy Plan of Care Treatment Note Summary: Dennis (pt goes byLes) has been participating in occupational therapy for treatme nt of Decreased ADL independence and functional mobility s/p admission for CVA. Hx of mult iple back surgeries and has an implated spine stimulator for pain control. Emphasis of sess ion included safety awareness w/ fxl mobility,t/f's and grooming. Patient demonstrates prog ress towards functional goals as evidenced by pt demonstrating good act janice and completing c ommunity re-entry activity w/ SBA/cues. Remaining barriers to discharge and functional limi tations include Decreased safety awareness,STM, decreased insight into safety and deficits, decreased functional activity tolerance, decreased ability to perform IADLs, decreased abili ty to perform medication management and demonstrating need for 24/7 supervision. Dennis will benefit from continued therapeutic intervention to address ongoing impairments and increase safety and independence with activities necessary for safe discharge. Refer be low for specific details regarding functional levels. Occupational Therapy Discharge Recommendations are: Recommended discharge disposition: home with assist Post discharge occupational therapy recommendation: home health Equipment Recommendations: shower chair, grab bars Planned Interventions:ADL retraining, IADL retraining, balance training, cognitive retraini ng, neuromuscular re-education Recommended Frequency: Patient Status/Goals: Reflects last filed data and may be from multiple contributors. ADLs Pt already dressed on this therapist arrival. Toileting, Level of [place]: supervised Assistive Device: none Toileting Assess/Train, Position: sitting, standing Toileting Assess/Train, Impairments: impaired balance Brushed teeth standing at sink supervised Grooming, Level of [place]: supervised Assistive Device: none Grooming Assess/Train, Position: standing Grooming Assess/Train, Impairments: impaired balance IADLs Pt engaged in community re-entry activity and ambulated to/from gift shop and was able to ambulate through narrow pathways in gift shop SBA/cues using SPC, Special Training: Completed community re-entry therapeutic activity w/ SBA/cues Functional Endurance Good Cognitive Unable to recall name of this hospital/city and name of town he lives w/ . Required cue s to find his room after community re-entry activity this am Orientation: disoriented to, place, time, situation Follows Commands/Answers Questions: able to follow single-step instructions, needs cueing, needs increased time, needs repetition Short/Hourly Shift Manager Memory: moderate impairment, short term memory, requires frequent cues, sev ere impairment, terminal supervisor memory, decreased recall, biographical info Bed Mobility T/f'd on/off bed independent Assistive Device: none Supine to Sit, Level of [place]: independent Sit to Supine, Level of [place]: independent Safety Issues: cognitive deficits limit understanding Impairments: coordination impaired Transfers Toilet, Level of [place]: verbal cues required, supervised Toilet, Assistive Device: cane (straight, single point), grab bars Safety Issues: balance decreased during turns Impairments: impaired balance, coordination impaired, postural control impaired OT Goal Review Date Most Recent Value STG Review Date 09/04/17 at 08/31/2017 1704 LTG Review Date 09/11/17 at 08/31/2017 1704 Grooming Goal Most Recent Value STG Status met at 09/01/2017 0851 STG [place] Level supervised at 08/31/2017 1704 LTG Status progressing at 09/03/2017 1430 LTG [place] Level modified independent at 08/31/2017 1704 LB Dressing Goal Most Recent Value STG Status met at 09/02/2017 0906 STG [place] Level supervised at 08/31/2017 1704 LTG Status progressing at 09/03/2017 1430 LTG [place] Level modified independent at 08/31/2017 1704 Toilet Transfer Goal Most Recent Value STG Status met at 09/01/2017 0851 STG [place] Level supervised at 08/31/2017 1704 LTG Status progressing at 09/03/2017 1009 LTG [place] Level modified independent at 08/31/2017 1704 Tub/Shower Transfer Goal Most Recent Value Tub/Shower Type tub/shower combo at 08/31/2017 1704 STG Status met at 09/02/2017 0906 STG [place] Level contact guard assist at 08/31/2017 1704 STG Assistive Device shower chair, grab bars at 09/01/2017 1558 LTG Status met at 09/03/2017 1430 LTG [place] Level supervised at 08/31/2017 1704 Additional Goals #1 OT Most Recent Value STG Status new at 09/02/2017 1423 STG pt will demonstrate simple meal preparation task with min assist and v/c for safety to promote IADLs at 09/02/2017 1423 LTG pt will demonstrate simple meal preparation task with superviison assist and 1 v/c for safety to promote IADLs at 09/02/2017 1423 Electronically signed by: CHRIS Chatterjee, 09/03/2017 16:18 lan of Care - Anuradha Tang, PT - 09/03/2017 1:45 PM PDTFormatting of this note might be different from the o riginal. Problem: Patient Care Overview (Adult) Goal: Care Team Goals & Evaluation PROBLEM-RELATED GOALS: Will be mod ind in room by 09/07/17 Will have a BM every other day by 09/04/17 Will have not falls during hospital stay Cognitive function will return to baseline by 09/07/17 Pt will be independent in functional transfers and ambulation w/o AD. Dennis will maintain adequate oxygenation via oximetry with SpO2 >90%. STRATEGY TO ACHIEVE GOALS: Encourage ambulation and have pt do all assigned therapies Administer bowel meds if no BM by day 2 Ensure bed alarm is on and call light is within reach. encourage pt to express wants and ideas and give extra time if needed - Full participation in PT session in functional mobility training Monitor saturations via oximetry and titrate to order as indicated. Outcome: Improving IRF Physical Therapy Plan of Care Treatment Note Summary: Dennis has been participating in physical therapy for treatment of Gait instabilit y, imapired balance, dec.functional mobility d/t CVA. Hx of multiple back surgeries and has an implated spine stimulator for pain control.. Emphasis of session included gait training , balance training and functional mobility training. Patient demonstrates progress towards functional goals as evidenced by dec.assistance in his functional transfers. However pt has an impaired memory placing pt as a high fall risk. Remaining barriers to discharge and funct ional limitations include decreased insight into safety and deficits, decreased functional t ransfers, demonstrating need for 24/7 supervision, not yet able to mobilize at level safe fo r home discharge, [facility] indicating significant impairment with basic functional mobility and medical status. Dennis will benefit from continued therapeutic intervention to address ongoing impairments and increase safety and independence with activities necessary for safe discharge. Refer be low for specific details regarding functional levels. Physical Therapy Discharge Recommendations are: Recommended discharge disposition: (ILF with spouse) Post discharge physical therapy recommendation: home health Equipment Recommendations: (TBD) Planned Interventions: balance training, bed mobility training, gait training, home exerci se program, transfer training, patient/family education, strengthening, stair training, daxa r coordination training Frequency: daily (1-2x/day) Patient Status/Goals: Reflects last filed data and may be from multiple contributors. Bed Mobility extra time, no physical assistance provided Assistive Device: none Roll Left, Level of [place]: independent Roll Right, Level of [place]: independent Supine to Sit, Level of [place]: independent Sit to Supine, Level of [place]: independent Safety Issues: cognitive deficits limit understanding Impairments: coordination impaired Transfers supervision for safety d/t LOB with quick turns Bed-Chair, Level of [place]: supervised Chair-Bed, Level of [place]: supervised [id number], Assistive Device: cane (straight, single point) Sit-Stand, Level of [place]: supervised Stand-Sit, Level of [place]: supervised [id number], Assistive Device: cane (straight, single point) Safety Issues: balance decreased during turns Impairments: impaired balance, coordination impaired, postural control impaired Gait mostly SBA and required CGA when turning d/t occasional LOB. Walked on diff.floor surface walked across the grass, on/off curb, inclines/declines Level of [place]: contact guard assist Assistive Device: none Distance (feet): 200' x 2+ 400' Gait Deviations: step length decreased, [id number] clearance decreased Impairments: strength decreased, impaired balance, coordination impaired, postural control impaired Stairs no LOB, demo safe technique with AD this am session. Number of Stairs: 12 Handrail Location: left side (ascending) Level of [place]: supervised Assistive Device: 1 rail, cane (straight, single point) Technique Used: step over step (descending), step over step (ascending) Safety Issues: balance decreased during turns Impairments: impaired balance, coordination impaired Therapeutic Exercise dual tasking task demo moderate LOB. Cues to slowly turn to minimize LOB. Bed exercises: half bridging Repetitions: 5x 3 Balance exercises: carry items, step over obstacles (on/off foam pad, walking against the r esistance of blue TB.) Repetitions: amb on carpet incline. No LOB. PT Goal Review Date Most Recent Value STG Review Date 09/03/17 at 08/31/2017 1545 LTG Review Date 09/12/17 at 08/31/2017 1545 Tsmyld-Koe-Hwqgyr Goal Most Recent Value STG Status met at 09/02/2017 1500 STG [place] Level modified independent at 08/31/2017 1545 STG Assistive Device none at 08/31/2017 1545 Ndq-Bopll-Ire Goal Most Recent Value STG Status met at 09/03/2017 0859 STG [place] Level supervised at 08/31/2017 1545 STG Assistive Device none at 08/31/2017 1545 LTG Status progressing at 09/03/2017 1305 LTG [place] Level independent at 08/31/2017 1545 LTG Assistive Device cane (straight, single point) at 09/03/2017 0859 Gait Goal Most Recent Value STG Status met at 09/03/2017 0859 STG [place] Level stand by assist at 08/31/2017 1545 STG Assistive Device none, cane (straight, single point) at 08/31/2017 1545 STG Distance (feet) 200' at 08/31/2017 1545 STG Comments none vs SPC at 08/31/2017 1545 LTG Status progressing at 09/03/2017 1305 LTG [place] Level independent at 08/31/2017 1545 LTG Assistive Device cane (straight, single point) at 09/03/2017 0859 Stair Goal Most Recent Value STG Status met at 09/03/2017 0859 STG [place] Level supervised at 08/31/2017 1545 STG Assistive Device 2 rails at 08/31/2017 1545 STG Number of Stairs 12 at 08/31/2017 1545 LTG Status progressing at 09/03/2017 1305 LTG [place] Level modified independent at 08/31/2017 1545 LTG Assistive Device 2 rails at 08/31/2017 1545 LTG Number of Stairs 12 at 08/31/2017 1545 Additional Goal #1 PT Most Recent Value STG Status new at 08/31/2017 1545 STG Improve DGI score to 19 to dec.fall risk at 08/31/2017 1545 Electronically signed by: ANURADHA TANG, PT, 09/03/2017 15:06 lan of Care - Rela Tang PT - 09/03/2017 8:58 AM PDTFormatting of this note might be different from the aileen noni. Problem: Patient Care Overview (Adult) Goal: Care Team Goals & Evaluation PROBLEM-RELATED GOALS: Will be mod ind in room by 09/07/17 Will have a BM every other day by 09/04/17 Will have not falls during hospital stay Cognitive function will return to baseline by 09/07/17 Pt will be independent in functional transfers and ambulation w/o AD. Dennis will maintain adequate oxygenation via oximetry with SpO2 >90%. STRATEGY TO ACHIEVE GOALS: Encourage ambulation and have pt do all assigned therapies Administer bowel meds if no BM by day 2 Ensure bed alarm is on and call light is within reach. encourage pt to express wants and ideas and give extra time if needed - Full participation in PT session in functional mobility training Monitor saturations via oximetry and titrate to order as indicated. Outcome: Improving IRF Physical Therapy Plan of Care Treatment Note Summary: Dennis has been participating in physical therapy for treatment of Gait instabi lity, imapired balance, dec.functional mobility d/t CVA. Hx of multiple back surgeries and has an implated spine stimulator for pain control.. Emphasis of session included dynamic ba trupti training, blocked practice in transfers, gait training using SPC and stair training. Patient demonstrates progress towards functional goals as evidenced by pt demonstrated impro tracey balance when walking using SPC although pt still has occational LOB when turning and wit h head turns. Remaining barriers to discharge and functional limitations include decreased insight into safety and deficits, decreased functional transfers, decreased functional gait distance, demonstrating need for 24/7 supervision and not yet able to mobilize at level safe for home discharge. Dennis will benefit from continued therapeutic intervention to address ongoing impairments and increase safety and independence with activities necessary for safe discharge. Refer be low for specific details regarding functional levels. Physical Therapy Discharge Recommendations are: Recommended discharge disposition: (ILF with spouse) Post discharge physical therapy recommendation: home health Equipment Recommendations: (TBD) Planned Interventions: balance training, bed mobility training, gait training, home exerci se program, transfer training, patient/family education, strengthening, stair training, daxa r coordination training Frequency: daily (1-2x/day) Patient Status/Goals: Reflects last filed data and may be from multiple contributors. Bed Mobility extra time, no physical assistance provided Assistive Device: none Roll Left, Level of [place]: independent Roll Right, Level of [place]: independent Supine to Sit, Level of [place]: independent Sit to Supine, Level of [place]: independent Safety Issues: cognitive deficits limit understanding Impairments: coordination impaired Transfers Blocked practice in transfers to chair and to bathroom. distant supervision. Mild instabi lity noted but no LOB. Bed-Chair, Level of [place]: supervised Chair-Bed, Level of [place]: supervised [id number]-Scc, Assistive Device: cane (straight, single point) Sit-Stand, Level of [place]: supervised Stand-Sit, Level of [place]: supervised Isc-Ehemw-Roh, Assistive Device: none Safety Issues: balance decreased during turns Impairments: impaired balance, coordination impaired Gait Trial using SPC. Pt demonstrated improved balance with the AD. Pt had 1 episode of mod.LO B looking to the right when he turned his head but able to recover with CGA. Level of [place]: stand by assist Assistive Device: none Distance (feet): 400' x 2 Gait Deviations: step length decreased, [id number]-[id number] clearance decreased Impairments: strength decreased, impaired balance, coordination impaired, postural control impaired Stairs no LOB, demo safe technique with AD this am session. Number of Stairs: 12 Handrail Location: left side (ascending) Level of [place]: supervised Assistive Device: 1 rail, cane (straight, single point) Technique Used: step over step (descending), step over step (ascending) Safety Issues: balance decreased during turns Impairments: impaired balance, coordination impaired Therapeutic Exercise pt on a harness attached to the skylift for safety. Balance exercises: avoid obstacles, throw, catch, turn 180 degrees (figure of 8, balloon to ss while standing on a foam surface, and ball kick ) Repetitions: amb on carpet incline. No LOB. PT Goal Review Date Most Recent Value STG Review Date 09/03/17 at 08/31/2017 1545 LTG Review Date 09/12/17 at 08/31/2017 1545 Flwzkd-Bkh-Atxqop Goal Most Recent Value STG Status met at 09/02/2017 1500 STG [place] Level modified independent at 08/31/2017 1545 STG Assistive Device none at 08/31/2017 1545 Ckf-Bvrae-Gns Goal Most Recent Value STG Status met at 09/03/2017 0859 STG [place] Level supervised at 08/31/2017 1545 STG Assistive Device none at 08/31/2017 1545 LTG Status revised at 09/03/2017 0859 LTG [place] Level independent at 08/31/2017 1545 LTG Assistive Device cane (straight, single point) at 09/03/2017 0859 Gait Goal Most Recent Value STG Status met at 09/03/2017 0859 STG [place] Level stand by assist at 08/31/2017 1545 STG Assistive Device none, cane (straight, single point) at 08/31/2017 1545 STG Distance (feet) 200' at 08/31/2017 1545 STG Comments none vs SPC at 08/31/2017 1545 LTG Status revised at 09/03/2017 0859 LTG [place] Level independent at 08/31/2017 1545 LTG Assistive Device cane (straight, single point) at 09/03/2017 0859 Stair Goal Most Recent Value STG Status met at 09/03/2017 0859 STG [place] Level supervised at 08/31/2017 1545 STG Assistive Device 2 rails at 08/31/2017 1545 STG Number of Stairs 12 at 08/31/2017 1545 LTG Status new at 08/31/2017 1545 LTG [place] Level modified independent at 08/31/2017 1545 LTG Assistive Device 2 rails at 08/31/2017 1545 LTG Number of Stairs 12 at 08/31/2017 1545 Additional Goal #1 PT Most Recent Value STG Status new at 08/31/2017 1545 STG Improve DGI score to 19/24 to dec.fall risk at 08/31/2017 1545 Electronically signed by: ANURADHA TANG, PT, 09/03/2017 10:55 lan of Frances Hernández, RN - 09/03/2017 4:48 AM PDTProblem: Patient Care Overview (Adult) Goal: Care Team Goals & Evaluation PROBLEM-RELATED GOALS: Will be mod ind in room by 09/07/17 Will have a BM every other day by 09/04/17 Will have not falls during hospital stay Cognitive function will return to baseline by 09/07/17 Pt will be independent in functional transfers and ambulation w/o AD. Dennis will maintain adequate oxygenation via oximetry with SpO2 >90%. STRATEGY TO ACHIEVE GOALS: Encourage ambulation and have pt do all assigned therapies Administer bowel meds if no BM by day 2 Ensure bed alarm is on and call light is within reach. encourage pt to express wants and ideas and give extra time if needed - Full participation in PT session in functional mobility training Monitor saturations via oximetry and titrate to order as indicated. Outcome: Improving Goal Evaluation: Impulsive, does not call for assist before getting oob, one person sba for mobility, gait s lightly unsteady, neuros intact except memory to call for assist before getting oob, loose n p cough continues requiring prn guefenison which help to reduce cough so he could sleep. Sle pt at long intervals. lan of Care - Logan Fuller RN - 09/02/2017 4:57 PM PDTProblem: Patient Care Overview (Adult) Goal: Care Team Goals & Evaluation PROBLEM-RELATED GOALS: Will be mod ind in room by 09/07/17 Will have a BM every other day by 09/03/17 Will have not falls during hospital stay Cognitive function will return to baseline by 09/07/17 Pt will be independent in functional transfers and ambulation w/o AD. Dennis will maintain adequate oxygenation via oximetry with SpO2 >90%. STRATEGY TO ACHIEVE GOALS: Encourage ambulation and have pt do all assigned therapies Administer bowel meds if no BM by day 2 Ensure bed alarm is on and call light is within reach. encourage pt to express wants and ideas and give extra time if needed - Full participation in PT session in functional mobility training Monitor saturations via oximetry and titrate to order as indicated. Outcome: Improving Goal Evaluation: Pt is A&O X3 and forgetful at times. Pt was reminded to call for assistance. Pt denies pa in. Pt requires one person SBA with ambulation. Pt has been tolerating a regular diet well. Pt had a BM yesterday and has been passing gas today. Remains on room air, c/o intermittent cough, no SOB reported. VSS, BP still low (see flow sheets), was notified. lan of Care - Destiney Ghotra, Speech Pathologist - 09/02/2017 3:14 PM PDTFormatting of this note might be diff erent from the original. Problem: Patient Care Overview (Adult) Goal: Care Team Goals & Evaluation PROBLEM-RELATED GOALS: Will be mod ind in room by 09/07/17 Will have a BM every other day by 09/03/17 Will have not falls during hospital stay Cognitive function will return to baseline by 09/07/17 Pt will be independent in functional transfers and ambulation w/o AD. Dennis will maintain adequate oxygenation via oximetry with SpO2 >90%. STRATEGY TO ACHIEVE GOALS: Encourage ambulation and have pt do all assigned therapies Administer bowel meds if no BM by day 2 Ensure bed alarm is on and call light is within reach. encourage pt to express wants and ideas and give extra time if needed - Full participation in PT session in functional mobility training Monitor saturations via oximetry and titrate to order as indicated. IRF Speech Therapy Plan of Care Treatment Note Summary: Pt sitting upright in bed for cognitive treatment s/p admit to IRF following CVA. Pt participated in MoCA (09/02/17) with a score of 14/30 indicating moderate cognitive impai rment. Pt presents with marked memory loss, disorientation to time and place, decreased abil ity to make judgments, and decreased ability to function independently, requiring assistance with personal cares. Pt participated in structured cognitive and language tasks. See below for details. Pt required frequent cues throughout session and was distractible requiring re- direction. Pt and LEARNING SPECIALIST discussed compensatory memory strategies. Pt reported he usually relie s on his brain for recall and generally does not write things down. Pt reported he and his w orly recently sold their house in [place] but could not recall where their new home is [place]. Pt reports limited cognitive stimulation activities or hobbies and could not explain ty pical daily activities. LEARNING SPECIALIST rec's continued cognitive linguistic therapies to address attent ion, word finding, generative naming, and compensatory strategies for improved memory and at tention. Cognitive MoCA score of 14/30 Mood/Behavior: calm, cooperative, behavior appropriate to situation Orientation: time Speech: hoarse, spontaneous, logical Follows Commands/Answers Questions: able to follow single-step instructions, needs cueing, needs increased time, needs repetition Short/Hourly Shift Manager Memory: moderate impairment, short term memory, requires frequent cues, dec reased recall, precautions, decreased recall, recent events, decreased recall, biographical info Immediate memory Picture Recall, LEVEL 1 - 90% accuracy and mod-max cues from a field of 3 Remote Memory General Knowledge, LEVEL 1 - 60% accuracy and mod-max cues from field of 3 Auditory Comprehension Pt with bilateral hearing aids Pt required frequent cues and is easily distractible Verbal Expression Word finding deficits noted in conversational speech Naming - 100% accuracy and min cues, increased time required Reading Comprehension - 100% accuracy and min cues from a field of 6 Voice Hoarse, gravely, lower focus of resonance than is efficient Swallow Recommendations Recommended Solid Texture: regular Recommended Liquid Texture: thin liquids Recommended Medication Delivery: whole pills with thin liquids Recommended Feeding/Eating Techniques: alternate between small bites and sips of food/liqui d, oral care before and after each meal, maintain upright posture during/after eating for 30 mins, one small sip or bite at a time, slow rate, limit distractions Speech Language Pathology Discharge Recommendations are: Recommended discharge disposition: other (see comments) (TBD) Post discharge speech language pathology recommendation: continue LEARNING SPECIALIST tx for cognitive-sebas guistic (TBD) Planned Interventions: compensatory strategies, patient/caregiver education Recommended Frequency: 3 times/wk Patient Status/Goals: Reflects last filed data and may be from multiple contributors. Cognition Goal Most Recent Value STG Status continued at 09/02/2017 144 STG Pt will increase immediate memory skills with 80% accuracy at 09/02/2017 144 Additional Goals #1 LEARNING SPECIALIST Most Recent Value STG Status continued at 09/02/2017 144 STG Pt will increase use of compensatory strategies to 75% accuracy at 09/02/2017 144 Additional Goals #2 LEARNING SPECIALIST Most Recent Value STG Status continued at 09/02/2017 144 STG Pt will increase focused attention to 80% accuracy. at 09/02/2017 1447 Electronically signed by: Destiney Ghotra Speech Pathologist, 09/02/2017 14:55 lan of Care - Odessa Anguiano, CITY CLERK - 09/02/2017 3:04 PM PDTFormatting of this note might be d ifferent from the original. Problem: Patient Care Overview (Adult) Goal: Care Team Goals & Evaluation PROBLEM-RELATED GOALS: Will be mod ind in room by 09/07/17 Will have a BM every other day by 09/03/17 Will have not falls during hospital stay Cognitive function will return to baseline by 09/07/17 Pt will be independent in functional transfers and ambulation w/o AD. Dennis will maintain adequate oxygenation via oximetry with SpO2 >90%. STRATEGY TO ACHIEVE GOALS: Encourage ambulation and have pt do all assigned therapies Administer bowel meds if no BM by day 2 Ensure bed alarm is on and call light is within reach. encourage pt to express wants and ideas and give extra time if needed - Full participation in PT session in functional mobility training Monitor saturations via oximetry and titrate to order as indicated. Outcome: Improving IRF Physical Therapy Plan of Care Treatment Note Summary: Dennis has been participating in physical therapy for treatment of Gait instabili ty, imapired balance, dec.functional mobility d/t CVA. Hx of multiple back surgeries and peñaloza s an implated spine stimulator for pain control.. Emphasis of session included gait and bal ance. Patient demonstrates progress towards functional goals as evidenced by amb on incline no LOB. Poor memory continues. Remaining barriers to discharge and functional limitations include decreased insight into safety and deficits and demonstrating need for 24/ supervis ion. Dennis will benefit from continued therapeutic intervention to address ongoing impairments and increase safety and independence with activities necessary for safe discharge. Refer be low for specific details regarding functional levels. Physical Therapy Discharge Recommendations are: Recommended discharge disposition: (ILF with spouse) Post discharge physical therapy recommendation: home health Equipment Recommendations: (TBD) Planned Interventions: balance training, bed mobility training, gait training, home exerci se program, transfer training, patient/family education, strengthening, stair training, daxa r coordination training Frequency: daily (1-2x/day) Patient Status/Goals: Reflects last filed data and may be from multiple contributors. Bed Mobility extra time, no physical assistance provided Assistive Device: none Roll Left, Level of [place]: independent Roll Right, Level of [place]: independent Supine to Sit, Level of [place]: independent Sit to Supine, Level of [place]: independent Safety Issues: cognitive deficits limit understanding Impairments: coordination impaired Transfers SBA for safety d/t impaired balance and dec.safety awareness. Bed-Chair, Level of [place]: supervised Chair-Bed, Level of [place]: supervised Gip-[id number], Assistive Device: none Sit-Stand, Level of [place]: supervised Stand-Sit, Level of [place]: supervised [id number]-Mtv, Assistive Device: none Safety Issues: balance decreased during turns Impairments: strength decreased, impaired balance, coordination impaired Gait amb on ramp. Level of [place]: stand by assist Assistive Device: none Distance (feet): 300x 2 Gait Deviations: step length decreased, pig-gg-ehxin clearance decreased Impairments: strength decreased, impaired balance, coordination impaired, postural control impaired Therapeutic Exercise Balance exercises: sidestep, walk forward, walk backwards, carry items, grapevine, tandem w alk forward, tandem walk backward Repetitions: amb on carpet incline. No LOB. Other exercises (description): biodex x 7min Functional Endurance Good PT Goal Review Date Most Recent Value STG Review Date 09/03/17 at 08/31/2017 1545 LTG Review Date 09/12/17 at 08/31/2017 1545 [id number] Goal Most Recent Value STG Status met at 09/02/2017 1500 STG [place] Level modified independent at 08/31/2017 1545 STG Assistive Device none at 08/31/2017 1545 Grw-Byljy-Ygt Goal Most Recent Value STG Status progressing at 09/02/2017 1500 STG [place] Level supervised at 08/31/2017 1545 STG Assistive Device none at 08/31/2017 1545 LTG Status new at 08/31/2017 1545 LTG [place] Level independent at 08/31/2017 1545 LTG Assistive Device none at 08/31/2017 1545 Gait Goal Most Recent Value STG Status progressing at 09/02/2017 1500 STG [place] Level stand by assist at 08/31/2017 1545 STG Assistive Device none, cane (straight, single point) at 08/31/2017 1545 STG Distance (feet) 200' at 08/31/2017 1545 STG Comments none vs SPC at 08/31/2017 1545 LTG Status new at 08/31/2017 1545 LTG [place] Level independent at 08/31/2017 1545 LTG Assistive Device none at 08/31/2017 1545 Stair Goal Most Recent Value STG Status progressing at 09/02/2017 1200 STG [place] Level supervised at 08/31/2017 1545 STG Assistive Device 2 rails at 08/31/2017 1545 STG Number of Stairs 12 at 08/31/2017 1545 LTG Status new at 08/31/2017 1545 LTG [place] Level modified independent at 08/31/2017 1545 LTG Assistive Device 2 rails at 08/31/2017 1545 LTG Number of Stairs 12 at 08/31/2017 1545 Additional Goal #1 PT Most Recent Value STG Status new at 08/31/2017 1545 STG Improve DGI score to 19/24 to dec.fall risk at 08/31/2017 1545 Electronically signed by: Odessa Anguiano PTA, 09/02/2017 15:03 Goal Evaluation: lan of Care - La Arellano OT - 09/02/2017 2:33 PM PDT Problem: Patient Care Overview (Adult) Goal: Care Team Goals & Evaluation PROBLEM-RELATED GOALS: Will be mod ind in room by 09/07/17 Will have a BM every other day by 09/03/17 Will have not falls during hospital stay Cognitive function will return to baseline by 09/07/17 Pt will be independent in functional transfers and ambulation w/o AD. Dennis will maintain adequate oxygenation via oximetry with SpO2 >90%. STRATEGY TO ACHIEVE GOALS: Encourage ambulation and have pt do all assigned therapies Administer bowel meds if no BM by day 2 Ensure bed alarm is on and call light is within reach. encourage pt to express wants and ideas and give extra time if needed - Full participation in PT session in functional mobility training Monitor saturations via oximetry and titrate to order as indicated. Outcome: Improving IRF Occupational Therapy Plan of Care Treatment Note Summary: Dennis has been participating in occupational therapy for treatment of Decrease d ADL independence and functional mobility s/p admission for CVA. Hx of multiple back surg eries and has an implated spine stimulator for pain control. Emphasis of session included d ynamometer [place] seamer strength testing, dexterity/FMC/speed testing using the 9-hole peg test, and IADL of simple meal preparation. Patient demonstrates progress towards functional goals as evidenced by supervision for activities with IADLs . Remaining barriers to discharge and f unctional limitations include decreased insight into safety and deficits, decreased function al activity tolerance, decreased ability to perform IADLs, decreased ability to perform medi cation management, demonstrating need for 24/7 supervision and not yet able to mobilize at [facility] for home discharge. Dennis will benefit from continued therapeutic intervention to address ongoing impairments and increase safety and independence with activities necessary for safe discharge. Refer be low for specific details regarding functional levels. Occupational Therapy Discharge Recommendations are: Recommended discharge disposition: home with assist Post discharge occupational therapy recommendation: home health Equipment Recommendations: shower chair, grab bars Planned Interventions:ADL retraining, IADL retraining, balance training, cognitive retraini ng, neuromuscular re-education Recommended Frequency: Patient Status/Goals: Reflects last filed data and may be from multiple contributors. ADLs Pt up in chair, ready for OT, Pt requesting to shower this AM Pt used Grab bars when standing fot remberto care and again for final rinse, no LOB. Bathing, Level of [place]: stand by assist Assistive Device: hand-held shower head, shower chair without back Bathing Assess/Train, Position: sitting, standing Bathing Assess/Train, Impairments: impaired balance, coordination impaired Pt reports he needs to wear same clothes today, he did not remember that he had clean under wear and socks in the closet. UB Dressing, Level of [place]: stand by assist, verbal cues required Assistive Device: none UB Dressing Assess/Train, Position: sitting UB Dressing Assess/Train, Impairments: impaired balance, motor control impaired VC to sit to thread clothing over his feet. Pt attempted to thread from standing with 1 LOB , he caught himself and agreed to sit down. LB Dressing, Level of [place]: stand by assist, verbal cues required Assistive Device: none LB Dressing Assess/Train, Position: sitting, standing LB Dressing Assess/Train, Impairments: impaired balance, motor control impaired (deficits i n STM and problem solving) Toileting, Level of [place]: supervised Assistive Device: none Toileting Assess/Train, Position: sitting, standing Toileting Assess/Train, Impairments: impaired balance Grooming, Level of [place]: supervised Assistive Device: none Grooming Assess/Train, Position: standing Grooming Assess/Train, Impairments: impaired balance Pt able to remove lids and open packets, but pt may need help selecting his menu d/t items missed like butter for toast, jelly, and sugar for his hot ceral. Self-Feeding, Level of [place]: stand by assist Assistive Device: none Self-Feeding Assess/Train, Position: sitting Self-Feeding Assess/Train, Impairments: (deficits in STM and problem solving) IADLs had pt make a cup of tea. breakdown of how to use the microwave as well as how long is appr opriate to heat water. decreased safety awarness and sequencing noted. had pt then trial run using the dyer and washer/dryer. pt physcially able to open and close objects without noted LOB. Meal Preparation/Planning Training, OT Eval Level Of [place]: Meal Prep: supervised Physical Assist/Nonphysical Assist: Meal Prep: verbal cues Assistive Device: none Housekeeping Training, OT Eval Level Of [place]: Housekeeping: supervised Physical Assist/Nonphysical Assist: Housekeeping: verbal cues Assistive Device: none Bed Mobility no physcial assist provided Assistive Device: none Roll Left, Level of [place]: modified independent Roll Right, Level of [place]: modified independent Supine to Sit, Level of [place]: modified independent Sit to Supine, Level of [place]: modified independent Safety Issues: cognitive deficits limit understanding Impairments: coordination impaired Transfers supervision d/t impaired balance and decreased safety awareness. Bed-Chair, Level of [place]: supervised Chair-Bed, Level of [place]: supervised Aup-Dshfx-Yoq, Assistive Device: none Sit-Stand, Level of [place]: supervised Stand-Sit, Level of [place]: supervised Enk-Lecuo-Gjo, Assistive Device: none Toilet, Level of [place]: supervised Toilet, Assistive Device: none Safety Issues: balance decreased during turns Impairments: impaired balance ROM L UE ROM: WFL R UE ROM: WFL Strength initial scores performed on 09/02/17 dynamometer: R:23,30,32lbs L:65,63,64lbs seconds 9- hole peg: R:36 L:35.72 seconds L UE Strength: WFL R UE Strength: 4/5 Commercial Real [employer] Associate Strength Test: Right: 28lbs ( skewed as pt has hx of finger and small finger aputation decreasing overall strength and [place] seamer) Left: 64lbs Interpretation: - Average and Standard Deviation of MALE Participants Scores AGE Right (SD) in Pounds Left (SD) in Pounds 65-69 91.5 (15.5) 88.2 (14.4) 70-74 84.2 (17.2) 81.4 (18.4) 80-84 70.6 (14.6) 63.1 (16.2) 85+ 54.2 (14.2) 50.3 (13.8) - Average and Standard Deviation of FEMALE Participants Scores AGE Right (SD) in Pounds Left (SD) in Pounds 65-69 54.9 (10.1) 51.5 (9.5) 70-74 52.5 (9.5) 48.2 (10.3) 80-84 44.5 (11.1) 41.0 (9.3) 85+ 40.4 (11.6) 37.7 (8.6) For more information, please visit: [email or web address] Goal Review Date Most Recent Value STG Review Date 09/04/17 at 08/31/2017 1704 LTG Review Date 09/11/17 at 08/31/2017 1704 Grooming Goal Most Recent Value STG Status met at 09/01/2017 0851 STG [place] Level supervised at 08/31/2017 1704 LTG Status progressing at 09/02/2017 0906 LTG [place] Level modified independent at 08/31/2017 1704 LB Dressing Goal Most Recent Value STG Status met at 09/02/2017 0906 STG [place] Level supervised at 08/31/2017 1704 LTG Status progressing at 09/02/2017 0906 LTG [place] Level modified independent at 08/31/2017 1704 Toilet Transfer Goal Most Recent Value STG Status met at 09/01/2017 0851 STG [place] Level supervised at 08/31/2017 1704 LTG Status progressing at 09/02/2017 0906 LTG [place] Level modified independent at 08/31/2017 1704 Tub/Shower Transfer Goal Most Recent Value Tub/Shower Type tub/shower combo at 08/31/2017 1704 STG Status met at 09/02/2017 0906 STG [place] Level contact guard assist at 08/31/2017 1704 STG Assistive Device shower chair, grab bars at 09/01/2017 1558 LTG Status progressing at 09/02/2017 0906 LTG [place] Level supervised at 08/31/2017 1704 Additional Goals #1 OT Most Recent Value STG Status new at 09/02/2017 1423 STG pt will demonstrate simple meal preparation task with min assist and v/c for safety to promote IADLs at 09/02/2017 1423 LTG pt will demonstrate simple meal preparation task with superviison assist and 1 v/c for safety to promote IADLs at 09/02/2017 1423 Electronically signed by: La Jacinto, OT, 09/02/2017 14:27 lan of Care - Odessa Fernandez PTA - 09/02/2017 12:08 PM PDT Problem: Patient Care Overview (Adult) Goal: Care Team Goals & Evaluation PROBLEM-RELATED GOALS: Will be mod ind in room by 09/07/17 Will have a BM every other day by 09/03/17 Will have not falls during hospital stay Cognitive function will return to baseline by 09/07/17 Pt will be independent in functional transfers and ambulation w/o AD. Dennis will maintain adequate oxygenation via oximetry with SpO2 >90%. STRATEGY TO ACHIEVE GOALS: Encourage ambulation and have pt do all assigned therapies Administer bowel meds if no BM by day 2 Ensure bed alarm is on and call light is within reach. encourage pt to express wants and ideas and give extra time if needed - Full participation in PT session in functional mobility training Monitor saturations via oximetry and titrate to order as indicated. Outcome: Unchanged IRF Physical Therapy Plan of Care Treatment Note Summary: Dennis has been participating in physical therapy for treatment of Gait instabili ty, imapired balance, dec.functional mobility d/t CVA. Hx of multiple back surgeries and peñaloza s an implated spine stimulator for pain control.. Emphasis of session included dynamic avinash nce activity. Patient demonstrates progress towards functional goals as evidenced by worked on stepping clock with walking stinc to steady. Multiple LOB. Remaining barriers to disch arge and functional limitations include decreased insight into safety and deficits, decrease d functional activity tolerance, stairs at home, not able to navigate stairs, demonstrating need for 24/7 supervision, not yet able to mobilize at level safe for home discharge and AMP AC indicating significant impairment with basic functional mobility. Dennis will benefit from continued therapeutic intervention to address ongoing impairments and increase safety and independence with activities necessary for safe discharge. Refer be low for specific details regarding functional levels. Physical Therapy Discharge Recommendations are: Recommended discharge disposition: (ILF with spouse) Post discharge physical therapy recommendation: home health Equipment Recommendations: (TBD) Planned Interventions: balance training, bed mobility training, gait training, home exerci se program, transfer training, patient/family education, strengthening, stair training, daxa r coordination training Frequency: daily (1-2x/day) Patient Status/Goals: Reflects last filed data and may be from multiple contributors. Bed Mobility extra time, no physical assistance provided Assistive Device: none Roll Left, Level of [place]: modified independent Roll Right, Level of [place]: modified independent Supine to Sit, Level of [place]: modified independent Sit to Supine, Level of [place]: modified independent Safety Issues: cognitive deficits limit understanding Impairments: coordination impaired Transfers SBA for safety d/t impaired balance and dec.safety awareness. Bed-Chair, Level of [place]: supervised Chair-Bed, Level of [place]: supervised Kox-Sxmub-Yua, Assistive Device: none Sit-Stand, Level of [place]: supervised Stand-Sit, Level of [place]: supervised Sqg-Bzutn-Eqd, Assistive Device: none Safety Issues: balance decreased during turns Impairments: strength decreased, impaired balance, coordination impaired Gait gait instability when turning, LOB to R but no falls. Curbs with verbal cues. Grass/uneve n ground no LOB CGA. Level of [place]: stand by assist Assistive Device: none Distance (feet): 300 Gait Deviations: step length decreased, qne-qz-cpler clearance decreased Impairments: strength decreased, impaired balance, coordination impaired, postural control impaired Stairs decending, pt catches heel on steps cues to go slow and take tome to be safe. Number of Stairs: 12 Handrail Location: right side (ascending) Level of [place]: stand by assist, verbal cues required Assistive Device: 1 rail Technique Used: step over step (descending), step over step (ascending) Safety Issues: balance decreased during turns Impairments: impaired balance Therapeutic Exercise Balance exercises: walk forward, walk backwards, sidestep, step over obstacles, single step /stair, grapevine, tandem walk forward, tandem walk backward, throw, catch Repetitions: stepping clock with 1 walking cane for balance. Small LOB in all directio ns did not fall. Functional Endurance Good PT Goal Review Date Most Recent Value STG Review Date 09/03/17 at 08/31/2017 1545 LTG Review Date 09/12/17 at 08/31/2017 1545 Nmjdzw-Hco-Xawsap Goal Most Recent Value STG Status progressing at 09/02/2017 1200 STG [place] Level modified independent at 08/31/2017 1545 STG Assistive Device none at 08/31/2017 1545 Hsl-Idohh-Wca Goal Most Recent Value STG Status progressing at 09/02/2017 1200 STG [place] Level supervised at 08/31/2017 1545 STG Assistive Device none at 08/31/2017 1545 LTG Status new at 08/31/2017 1545 LTG [place] Level independent at 08/31/2017 1545 LTG Assistive Device none at 08/31/2017 1545 Gait Goal Most Recent Value STG Status progressing at 09/02/2017 1200 STG [place] Level stand by assist at 08/31/2017 1545 STG Assistive Device none, cane (straight, single point) at 08/31/2017 1545 STG Distance (feet) 200' at 08/31/2017 1545 STG Comments none vs SPC at 08/31/2017 1545 LTG Status new at 08/31/2017 1545 LTG [place] Level independent at 08/31/2017 1545 LTG Assistive Device none at 08/31/2017 1545 Stair Goal Most Recent Value STG Status progressing at 09/02/2017 1200 STG [place] Level supervised at 08/31/2017 1545 STG Assistive Device 2 rails at 08/31/2017 1545 STG Number of Stairs 12 at 08/31/2017 1545 LTG Status new at 08/31/2017 1545 LTG [place] Level modified independent at 08/31/2017 1545 LTG Assistive Device 2 rails at 08/31/2017 1545 LTG Number of Stairs 12 at 08/31/2017 1545 Additional Goal #1 PT Most Recent Value STG Status new at 08/31/2017 1545 STG Improve DGI score to 19/24 to dec.fall risk at 08/31/2017 1545 Electronically signed by: Odessa Anguiano PTA, 09/02/2017 12:05 Goal Evaluation: lan of Care - Sandy Valdes COTA - 09/02/2017 9:30 AM PDTFormatting of this note might be different fro m the original. Problem: Patient Care Overview (Adult) Goal: Care Team Goals & Evaluation PROBLEM-RELATED GOALS: Will be mod ind in room by 09/07/17 Will have a BM every other day by 09/03/17 Will have not falls during hospital stay Cognitive function will return to baseline by 09/07/17 Pt will be independent in functional transfers and ambulation w/o AD. Dennis will maintain adequate oxygenation via oximetry with SpO2 >90%. STRATEGY TO ACHIEVE GOALS: Encourage ambulation and have pt do all assigned therapies Administer bowel meds if no BM by day 2 Ensure bed alarm is on and call light is within reach. encourage pt to express wants and ideas and give extra time if needed - Full participation in PT session in functional mobility training Monitor saturations via oximetry and titrate to order as indicated. IRF Occupational Therapy Plan of Care Treatment Note Summary: Dennis (pt libby Farmer) has been participating in occupational therapy for treat ment of Decreased ADL independence and functional mobility s/p admission for CVA. Hx of mu ltiple back surgeries and has an implated spine stimulator for pain control. Emphasis of se ssion included Shower, dress and groom, and problem solving for using call light. Put up 3 s igns in room to help pt remember to use call light. Patient demonstrates progress towards f unctional goals as evidenced by pt requiring less VC's for safety awareness during session. Pt was able to tell this therapist what his room number is. Remaining barriers to discharge and functional limitations include decreased insight into safety and deficits, decreased fu nctional activity tolerance, decreased ability to perform IADLs, decreased ability to perfor m medication management and demonstrating need for 24/7 supervision. Dennis will benefit from continued therapeutic intervention to address ongoing impairments and increase safety and independence with activities necessary for safe discharge. Refer be low for specific details regarding functional levels. Occupational Therapy Discharge Recommendations are: Recommended discharge disposition: home with assist Post discharge occupational therapy recommendation: home health Equipment Recommendations: shower chair, grab bars Planned Interventions:ADL retraining, IADL retraining, balance training, cognitive retraini ng, neuromuscular re-education Recommended Frequency: Patient Status/Goals: Reflects last filed data and may be from multiple contributors. ADLs Pt up in chair, ready for OT, Pt requesting to shower this AM Pt used Grab bars when standing fot remberto care and again for final rinse, no LOB. Bathing, Level of [place]: stand by assist Assistive Device: hand-held shower head, shower chair without back Bathing Assess/Train, Position: sitting, standing Bathing Assess/Train, Impairments: impaired balance, coordination impaired Pt reports he needs to wear same clothes today, he did not remember that he had clean under wear and socks in the closet. UB Dressing, Level of [place]: stand by assist, verbal cues required Assistive Device: none UB Dressing Assess/Train, Position: sitting UB Dressing Assess/Train, Impairments: impaired balance, motor control impaired VC to sit to thread clothing over his feet. Pt attempted to thread from standing with 1 LOB , he caught himself and agreed to sit down. LB Dressing, Level of [place]: stand by assist, verbal cues required Assistive Device: none LB Dressing Assess/Train, Position: sitting, standing LB Dressing Assess/Train, Impairments: impaired balance, motor control impaired (deficits i n STM and problem solving) Toileting, Level of [place]: supervised Assistive Device: none Toileting Assess/Train, Position: sitting, standing Toileting Assess/Train, Impairments: impaired balance Grooming, Level of [place]: supervised Assistive Device: none Grooming Assess/Train, Position: standing Grooming Assess/Train, Impairments: impaired balance Pt able to remove lids and open packets, but pt may need help selecting his menu d/t items missed like butter for toast, jelly, and sugar for his hot ceral. Self-Feeding, Level of [place]: stand by assist Assistive Device: none Self-Feeding Assess/Train, Position: sitting Self-Feeding Assess/Train, Impairments: (deficits in STM and problem solving) Transfers Bed-Chair, Level of [place]: supervised Chair-Bed, Level of [place]: supervised [id number], Assistive Device: none Sit-Stand, Level of [place]: supervised Stand-Sit, Level of [place]: supervised [id number], Assistive Device: none Toilet, Level of [place]: supervised Toilet, Assistive Device: none Tub, Level of [place]: supervised Tub, Assistive Device: grab bars Safety Issues: balance decreased during turns Impairments: impaired balance OT Goal Review Date Most Recent Value STG Review Date 09/04/17 at 08/31/2017 1704 LTG Review Date 09/11/17 at 08/31/2017 1704 Grooming Goal Most Recent Value STG Status met at 09/01/2017 0851 STG [place] Level supervised at 08/31/2017 1704 LTG Status progressing at 09/02/2017 0906 LTG [place] Level modified independent at 08/31/2017 1704 LB Dressing Goal Most Recent Value STG Status met at 09/02/2017 0906 STG [place] Level supervised at 08/31/2017 1704 LTG Status progressing at 09/02/2017 0906 LTG [place] Level modified independent at 08/31/2017 1704 Toilet Transfer Goal Most Recent Value STG Status met at 09/01/2017 0851 STG [place] Level supervised at 08/31/2017 1704 LTG Status progressing at 09/02/2017 0906 LTG [place] Level modified independent at 08/31/2017 1704 Tub/Shower Transfer Goal Most Recent Value Tub/Shower Type tub/shower combo at 08/31/2017 1704 STG Status met at 09/02/2017 0906 STG [place] Level contact guard assist at 08/31/2017 1704 STG Assistive Device shower chair, grab bars at 09/01/2017 1558 LTG Status progressing at 09/02/2017 0906 LTG [place] Level supervised at 08/31/2017 1704 Electronically signed by: CHRIS Espinoza, 09/02/2017 10:31 atient Care Juan Brennan MD - 09/02/2017 9:06 AM PDTFormatting of this note might be di fferent from the original. [facility] Inpatient Rehabilitation Facility Individualized Overall Plan of Care Weekly Team Conference Patient Identification Dennis Hernándezsohan is a 82 y.o. male. : 1935 Admit Date: 08/31/2017 Attending Provider: Juan Rowell MD Primary Care Physician: Josr Henriquez MD Admitting Diagnosis: CVA Team Conference Date: 09/03/2017 Medical Prognosis and need for Rehabilitation Physician oversight and anticipated Rehabilit ation Physician interventions: [place] for functional progress is good. Physician Summary: The patient is seen and clinical status addressed in collaboration with the rehab team. I met with the charge nurse and discussed the overall nursing problematic issues. We also fo llowed up with the patient's floor nurse, discussing the above, as well as addressing the sp ecific nursing patient care focus of the day. We also met with the patient's bedside nurse, reviewing the patient's current status and ad dressing any questions, concerns and/or related issues. Nursing questions and concerns were addressed, including continence, skin issues, and pain complaints. The bowel and bladder program is being advanced. Patient is impulsive. We discussed some behavioral techniques to deal with this. The full medical rehabilitation team did meet today in conference. The patient's pertinent active medical problems, comorbidities, and medical rehabilitation needs were discussed and shared with the team members. I opine that there is a reasonable expectation that due to the complexity of our patient's nursing/medical management and rehabilitation needs requires an inpatient stay, including a physician lead and coordinated interdisciplinary team approach to the delivery of rehabilita tion care. I chaired the Rehabilitative Team Conference and led the team's discussion. We discussed and assessed our patient's current status and barriers; noting tolerance and compliance progress towards the rehabilitation goals. The full Rehab Team collaborated; considering and addressing the patient's current toleranc e and compliance with the rehabilitation treatment noting any issues and seeking resolution of any problems/barriers impeding progress towards goals. I garnered the information from all of the Medical Rehabilitation cafe team member's assessments and reports as we synthesized and advanced the overall plan of care. The validity of our re habilitation goals were reassessed as we monitored and revised the treatment plan as indicat ed. She is motivated and cooperative. With his basic activities of daily living he is now supervised with cues. He does have difficulty with limited attention span and short-term memory problems. Note he does better with structure and along with cues written signs. Speech therapy is working with him on developing a memory log. Also in regards to the log he has some word finding problems and their addressing this with him. With mobility is a contact-guard transfers. Standing balance and endurance are improved. We are advancing ambulation, currently single point cane and contact guard with cues. He does tend loses balance especially with turns. PT is also working with him on ambulatin g on uneven terrain. Plan is continue on full program with projected discharge to home with family on September 11. Following team conference I met with the patient and discussed the above. Safety and mobility were discusse Rehabilitation Nursing Summary: A&Ox3, occassinally forgetful, requires reminders to call for assist. ambulating w fww+1 person sba. skin intact. voiding via urinal and/or BR, contin ent during the day, has been incontinent at night occ. LBM 09/01, continent. intermittent dry cough, taking rx prn. Safety Management: Elopement/wander risk: No General Risk Interventions: Cognitive Impairment Interventions: Altered Eliminations/Toileting interventions: Safety Management Goal: will have no falls in hospital Pain Management: Pain rating: denies Skin Management: David Score: 19 Skin Management Goal: will have no skin breakdown during hospital Bladder Management: FIM BladderScore: 6; Evidence: 6 Medication [place] # Bladder accidents last 7 days: 0 Bladder Management Goal: will be continent of bladder Bowel Management: FIM Bowel Score: 6; Evidence: 6 Medication [place] # Bowel accidents last 7 days: 0 Bowel Management Goal: will have a BM every other day Nutrition Management: Patient eating 80-100% of a general diet. Patient eating well and meeting nutritional need s. Estimated nutritional needs: [id number] kcal and 90-94 gm protein. BMI: 24.9. Mobility Summary: Pt is making progress towards his goals. His is amb over 150ft withou t an AD with supervision due to his losses of balance. He has not had a fall in therapy. He is ascending and descending stairs with supervision for safety. He catches his heel descen ding the stairs, requires verbal cues. He is working on high level balance exercise and peñaloza s LOB but able to catch himself. His tranfers are supervision for safety. Pt has poor terminal supervisor memory, but follows directions in PT sessions. He will continue to work on high leve l balance and safety awareness. Les will retake the DGI as he progresses in therapy. Transfers FIM Bed/Chair/Wheelchair Score: 5; Evidence:5 Verbal Cues, 5 Safety Supervision FIM Toilet Transfer Score: 5; Evidence: 5 Safety Supervision FIM Tub/Shower Transfer Score: 5; Evidence: 5 Safety Supervision (Distant Supervision) Locomotion FIM Walk Score: 4; Evidence: 4 Steadying/150 ft+ FIM Distance Walked(feet): 150 feet FIM Wheelchair Score: ; Evidence: FIM Stairs Score :4; Evidence: 4 Steadying PT GOALS PT Goal Review Date Most Recent Value STG Review Date 09/03/17 at 08/31/2017 1545 LTG Review Date 09/12/17 at 08/31/2017 1545 Szvelb-[id number]-Lcvena Goal Most Recent Value STG Status progressing at 09/01/2017 1354 STG [place] Level modified independent at 08/31/2017 1545 STG Assistive Device none at 08/31/2017 1545 Riq-Mffrz-Xwz Goal Most Recent Value STG Status progressing at 09/01/2017 1354 STG [place] Level supervised at 08/31/2017 1545 STG Assistive Device none at 08/31/2017 1545 LTG Status new at 08/31/2017 1545 LTG [place] Level independent at 08/31/2017 1545 LTG Assistive Device none at 08/31/2017 1545 Gait Goal Most Recent Value STG Status progressing at 09/01/2017 1354 STG [place] Level stand by assist at 08/31/2017 1545 STG Assistive Device none, cane (straight, single point) at 08/31/2017 1545 STG Distance (feet) 200' at 08/31/2017 1545 STG Comments none vs SPC at 08/31/2017 1545 LTG Status new at 08/31/2017 1545 LTG [place] Level independent at 08/31/2017 1545 LTG Assistive Device none at 08/31/2017 1545 Stair Goal Most Recent Value STG Status continued at 09/01/2017 1354 STG [place] Level supervised at 08/31/2017 1545 STG Assistive Device 2 rails at 08/31/2017 1545 STG Number of Stairs 12 at 08/31/2017 1545 LTG Status new at 08/31/2017 1545 LTG [place] Level modified independent at 08/31/2017 1545 LTG Assistive Device 2 rails at 08/31/2017 1545 LTG Number of Stairs 12 at 08/31/2017 1545 Additional Goal #1 PT Most Recent Value STG Status new at 08/31/2017 1545 STG Improve DGI score to 1924 to dec.fall risk at 08/31/2017 1545 Self Care Summary: Pt completing self care tasks with vc's for safety to sit instead of st and with LB bathing and LB dressing. OT continues to address goals for cognition to improve pt safety with self care tasks, path finding, problem solving and training in compensatory strategies. Barrier to D/C: family/caregiver training. Pt will need 01/12 supervision at [facility] s writting. FIM Eating Score: 5; Evidence: FIM Grooming Score: 5; Evidence: 5 Safety Supervison (Distant Supervision) FIM Bathing Score: 5; Evidence: 5 Safety Supervison FIM Dressing Upper Body Score: 5; Evidence:5 Safety Supervision FIM Dressing Lower Body Score: 5; Evidence:5 Safety Supervision, 5 Verbal Cues FIM Toileting Score: 5; Evidence:5 Safety Supervision OT Goals OT Goal Review Date Most Recent Value STG Review Date 09/04/17 at 08/31/2017 1704 LTG Review Date 09/11/17 at 08/31/2017 1704 Grooming Goal Most Recent Value STG Status met at 09/01/2017 0851 STG [place] Level supervised at 08/31/2017 1704 LTG Status progressing at 09/02/2017 0906 LTG [place] Level modified independent at 08/31/2017 1704 LB Dressing Goal Most Recent Value STG Status met at 09/02/2017 0906 STG [place] Level supervised at 08/31/2017 1704 LTG Status progressing at 09/02/2017 0906 LTG [place] Level modified independent at 08/31/2017 1704 Toilet Transfer Goal Most Recent Value STG Status met at 09/01/2017 0851 STG [place] Level supervised at 08/31/2017 1704 LTG Status progressing at 09/02/2017 0906 LTG [place] Level modified independent at 08/31/2017 1704 Tub/Shower Transfer Goal Most Recent Value Tub/Shower Type tub/shower combo at 08/31/2017 1704 STG Status met at 09/02/2017 0906 STG [place] Level contact guard assist at 08/31/2017 1704 STG Assistive Device shower chair, grab bars at 09/01/2017 1558 LTG Status progressing at 09/02/2017 0906 LTG [place] Level supervised at 08/31/2017 1704 Additional Goals #1 OT Most Recent Value STG Status new at 09/02/2017 1423 STG pt will demonstrate simple meal preparation task with min assist and v/c for safety to promote IADLs at 09/02/2017 1423 LTG pt will demonstrate simple meal preparation task with superviison assist and 1 v/c for safety to promote IADLs at 09/02/2017 1423 Cognition/Communication Summary: Pt participated in MoCA (09/02/17) with a score of 14/30 in dicating moderate cognitive impairment. Pt presents with marked memory loss, disorientation to time and place, decreased ability to make judgments, and decreased ability to function in dependently, requiring assistance with personal cares. Pt required frequent cues throughout session and was distractible requiring re-direction. Pt and LEARNING SPECIALIST discussed compensatory memor y strategies. Pt reported he usually relies on his brain for recall and generally does not w rite things down. Pt reported he and his recently sold their house in [place] but cou ld not recall where their new home is located. Pt reports limited cognitive stimulation acti vities or hobbies and could not explain typical daily activities. LEARNING SPECIALIST rec's continued cognit jovita linguistic therapies to address attention, word finding, generative naming, and compensa tory strategies for improved memory and attention. Cognitive MoCA score of 14/30 Mood/Behavior: calm, cooperative, behavior appropriate to situation Orientation: time Speech: hoarse, spontaneous, logical Follows Commands/Answers Questions: able to follow single-step instructions, needs cueing, needs increased time, needs repetition Short/Hourly Shift Manager Memory: moderate impairment, short term memory, requires frequent cues, dec reased recall, precautions, decreased recall, recent events, decreased recall, biographical info Immediate memory Picture Recall, LEVEL 1 - 90% accuracy and mod-max cues from a field of 3 Remote Memory General Knowledge, LEVEL 1 - 60% accuracy and mod-max cues from field of 3 Auditory Comprehension Pt with bilateral hearing aids Pt required frequent cues and is easily distractible Verbal Expression Word finding deficits noted in conversational speech Naming - 100% accuracy and min cues, increased time required Reading Comprehension - 100% accuracy and min cues from a field of 6 Voice Hoarse, gravely, lower focus of resonance than is efficient Cognitive stimulation. Memory recall. Compensatory strategies. Generative naming tasks. A ttention tasks Problem Solving Score: 4; Evidence: 4 Daily Prbs 75-90% Memory Score: 4; Evidence: 4 Recalls 75-90% Comprehension/AuditoryScore: 5; Evidence: 5 Comp 91-99% Verbal Expression Score: 5; Evidence: 5 Express 91-99% Social Interaction Score: 5; Evidence:5 Approp 91-99% Dysphagia/Swallow: Recommended Solid Texture: regular Recommended Liquid Texture: thin liquids Recommended Medication Delivery: whole pills with thin liquids LEARNING SPECIALIST Goals Cognition Goal Most Recent Value STG Status continued at 09/02/2017 144 STG Pt will increase immediate memory skills with 80% accuracy at 09/02/20171446 Additional Goals #1 LEARNING SPECIALIST Most Recent Value STG Status continued at 09/02/2017 144 STG Pt will increase use of compensatory strategies to 75% accuracy at 09/02/20171446 Additional Goals #2 LEARNING SPECIALIST Most Recent Value STG Status continued at 09/02/2017 144 STG Pt will increase focused attention to 80% accuracy. at 09/02/20177 Leisure/Community: Therapeutic day pass appropriate: no Education Caregiver training initiated: no Sexuality education initiated: no Other education initiated (see Patient Education activity): yes Recommended Discharge Equipment (TBD), shower chair, grab bars Barriers to Discharge Barriers to Discharge: decreased insight into safety and deficits, demonstrating need for 24/7 supervision, need for assistance with medication management, impaired ability to perfo rm IADLs, and not yet mobilizing at a level safe for home discharge. Barrier Resolution Plan: Initiate family education. Continued participation in therapies to addresses deficits including mobility, safety awareness, and IADLs. Post-Discharge Plan Setting: Home to his senior care community where he lives with his spouse Level of Assist Recommended for Discharge: Home with assistance from spouse Anticipate post discharge services: Home health Prosthetics/Orthotics therapeutic interventions recommended: no Admission Date: 08/31/2017 ELOS: 9 more days Projected DC Date: September 11 Team Goals: the patient is to be medically stable and safe for discharge to home with family with supe rvision He is to show good understanding and demonstrated proper technique of his home program Family training is to be accomplished with them also showing good understanding and demons trating proper technique Scheduling and arranging for home health services to complement the above and continued t ransition and safety in the home environment Scheduling follow-up appointments with his community physicians Participants: MD: Dr. Juan Rowell RN: Kathy Flowers RN PT: Anuradha Tang, PT; Odessa Anguiano PTA OT: KACI MondragonA/L: Briana Raygoza, OTR LEARNING SPECIALIST: BRANDON Lowry CM/SW: Tali Velarde MSW Following interdisciplinary discussion and planning, I fully agree with the above. lan of [facility] - Frances Hope RN - 09/02/2017 2:01 AM PDTProblem: Patient Care Overview (Adult) Goal: Care Team Goals & Evaluation PROBLEM-RELATED GOALS: Will be mod ind in room by 09/07/17 Will have a BM every other day by 09/03/17 Will have not falls during hospital stay Cognitive function will return to baseline by 09/07/17 Pt will be independent in functional transfers and ambulation w/o AD. Dennis will maintain adequate oxygenation via oximetry with SpO2 >90%. STRATEGY TO ACHIEVE GOALS: Encourage ambulation and have pt do all assigned therapies Administer bowel meds if no BM by day 2 Ensure bed alarm is on and call light is within reach. encourage pt to express wants and ideas and give extra time if needed - Full participation in PT session in functional mobility training Monitor saturations via oximetry and titrate to order as indicated. Outcome: Improving Goal Evaluation: Impulsive setting bed alarm off, one person assist for mobility, n o falls this shift, neuros stable and unchanged. Slept well. lan [facility] - Jolene Encarnacion, ALUMNI RELATIONS OFFICER - 09/01/2017 6:02 PM PDTProblem: Patient Care Overview (Adult) Goal: Care Team Goals & Evaluation PROBLEM-RELATED GOALS: Will be mod ind in room by 09/07/17 Will have a BM every other day by 09/03/17 Will have not falls during hospital stay Cognitive function will return to baseline by 09/07/17 Pt will be independent in functional transfers and ambulation w/o AD. Dennis will maintain adequate oxygenation via oximetry with SpO2 >90%. STRATEGY TO ACHIEVE GOALS: Encourage ambulation and have pt do all assigned therapies Administer bowel meds if no BM by day 2 Ensure bed alarm is on and call light is within reach. encourage pt to express wants and ideas and give extra time if needed - Full participation in PT session in functional mobility training Monitor saturations via oximetry and titrate to order as indicated. Goal Evaluation: Breath sounds clear equal. No respiratory modalities indicated at this time. SpO2: 92 % on room air lan of Care - Tiffanie trinh, Ashley Castillo RN - 09/01/2017 5:13 PM PDTProblem: Patient Care Overview (Adult) Goal: Care Team Goals & Evaluation PROBLEM-RELATED GOALS: Will be mod ind in room by 09/07/17 Will have a BM every other day by 09/03/17 Will have not falls during hospital stay Cognitive function will return to baseline by 09/07/17 Pt will be independent in functional transfers and ambulation w/o AD. Dennis will maintain adequate oxygenation via oximetry with SpO2 >90%. STRATEGY TO ACHIEVE GOALS: Encourage ambulation and have pt do all assigned therapies Administer bowel meds if no BM by day 2 Ensure bed alarm is on and call light is within reach. encourage pt to express wants and ideas and give extra time if needed - Full participation in PT session in functional mobility training Monitor saturations via oximetry and titrate to order as indicated. Outcome: Improving Goal Evaluation: pt alert and oriented to self and time. Denies pain or discomfort. Up w/ 1 person SBA. Pt is impulsive and has a bed alarm for safety. Lungs dim w/ harsh barking cough noted. Guaifen esin given. Voiding without difficulty. LBM today. lan of Care - Briana Manning OT - 09/01/2017 4:06 PM PDTFormatting of this note might be different from emmett pena original. Problem: Patient Care Overview (Adult) Goal: Care Team Goals & Evaluation PROBLEM-RELATED GOALS: Will be mod ind in room by 09/07/17 Will have a BM every other day by 09/03/17 Will have not falls during hospital stay Cognitive function will return to baseline by 09/07/17 Pt will be independent in functional transfers and ambulation w/o AD. Dennis will maintain adequate oxygenation via oximetry with SpO2 >90%. STRATEGY TO ACHIEVE GOALS: Encourage ambulation and have pt do all assigned therapies Administer bowel meds if no BM by day 2 Ensure bed alarm is on and call light is within reach. encourage pt to express wants and ideas and give extra time if needed - Full participation in PT session in functional mobility training Monitor saturations via oximetry and titrate to order as indicated. IRF Occupational Therapy Plan of Care Treatment Note Summary: Dennis has been participating in occupational therapy for treatment of Decrease d ADL independence and functional mobility s/p admission for CVA. Hx of multiple back surg eries and has an implated spine stimulator for pain control.. Emphasis of session included path finding on floor. Pt taken to end of the opposite moreno and asked him to find his room. Required several cues to look at the number on the wall and to find his room. Remaining ba rriers to discharge and functional limitations include decreased functional activity toleran ce, decreased bed mobility, decreased functional transfers, decreased ability to perform ADL s, decreased ability to perform IADLs, demonstrating need for / supervision, unsafe disch arge disposition, AMPA indicating significant impairment with daily activities, spinal prec autions and medical status. Dennis will benefit from continued therapeutic intervention to address ongoing impairments and increase safety and independence with activities necessary for safe discharge. Refer be low for specific details regarding functional levels. Occupational Therapy Discharge Recommendations are: Recommended discharge disposition: home with assist Post discharge occupational therapy recommendation: home health Equipment Recommendations: shower chair Planned Interventions:ADL retraining, IADL retraining, balance training, cognitive retraini ng, neuromuscular re-education Recommended Frequency: rehab freequency Patient Status/Goals: return home Reflects last filed data and may be from multiple contributors. OT Goal Review Date Most Recent Value STG Review Date 09/04/17 at 08/31/2017 1704 LTG Review Date 09/11/17 at 08/31/2017 1704 Grooming Goal Most Recent Value STG Status met at 09/01/2017 0851 STG [place] Level supervised at 08/31/2017 1704 LTG Status progressing at 09/01/2017 0851 LTG [place] Level modified independent at 08/31/2017 1704 LB Dressing Goal Most Recent Value STG Status progressing at 09/01/2017 0851 STG [place] Level supervised at 08/31/2017 1704 LTG Status progressing at 09/01/2017 0851 LTG [place] Level modified independent at 08/31/2017 1704 Toilet Transfer Goal Most Recent Value STG Status met at 09/01/2017 0851 STG [place] Level supervised at 08/31/2017 1704 LTG Status progressing at 09/01/2017 0851 LTG [place] Level modified independent at 08/31/2017 1704 Tub/Shower Transfer Goal Most Recent Value Tub/Shower Type tub/shower combo at 08/31/2017 1704 STG Status progressing at 09/01/2017 0851 STG [place] Level contact guard assist at 08/31/2017 1704 STG Assistive Device shower chair, grab bars at 09/01/2017 1558 LTG Status progressing at 09/01/2017 0851 LTG [place] Level supervised at 08/31/2017 1704 Electronically signed by: Briana Raygoza OT, 09/01/2017 16:03 lan of Care - Tali Vitale MSW - 09/01/2017 2:47 PM PDTProblem: Discharge Planning Goal: Patient will be discharged in a safe manner This CM spoke with the patient to begin d/c planning and conduct BIMS. The patient lives w ith his spouse and anticipates discharging home. The patient was independent in his ALDs prior to hospitalization and mobilized outside the home using a cane. The patient's home is on a single level and does not have stairs at the entry way. The patient has a walk-in shower but does not own a shower chair or DME other jett n a cane. The patient has not had a caregiver in the past nor has his spouse. The patient's daughter is an OT at [facility] and can provide assistance to the patient post discharge. The pa tient does not have pets. The patient stated that he would be open to either home health or outpatient therapy post d ischarge. The patient's spouse does the majority of driving and can transport [facility]. This CM spoke to the patient about projected d/c date and family education and contacted hi s spouse and left a message requesting a return phone call. The patient's preferred pharmacy is [facility] in [place]. Electronically signed by: ELIOT Rossi 09/01/2017 15:27 lan of Care - Odessa Burrell PTA - 09/01/2017 2:02 PM PDTFormatting of this note might be different from emmett e original. Problem: Patient Care Overview (Adult) Goal: Care Team Goals & Evaluation PROBLEM-RELATED GOALS: Will be mod ind in room by 09/07/17 Will have a BM every other day by 09/03/17 Will have not falls during hospital stay Cognitive function will return to baseline by 09/07/17 Pt will be independent in functional transfers and ambulation w/o AD. Dennis will maintain adequate oxygenation via oximetry with SpO2 >90%. STRATEGY TO ACHIEVE GOALS: Encourage ambulation and have pt do all assigned therapies Administer bowel meds if no BM by day 2 Ensure bed alarm is on and call light is within reach. encourage pt to express wants and ideas and give extra time if needed - Full participation in PT session in functional mobility training Monitor saturations via oximetry and titrate to order as indicated. Outcome: Improving IRF Physical Therapy Plan of Care Treatment Note Summary: Dennis has been participating in physical therapy for treatment of Gait instabili ty, imapired balance, dec.functional mobility d/t CVA. Hx of multiple back surgeries and peñaloza s an implated spine stimulator for pain control.. Emphasis of session included gait and dyn amic balance activity. Patient demonstrates progress towards functional goals as evidenced by used sanket harness for balance exercises, outdoors on uneven ground and curbs. No LOB.. Re maining barriers to discharge and functional limitations include decreased insight into safe ty and deficits, decreased functional activity tolerance, decreased bed mobility, decreased functional transfers, decreased functional gait distance, demonstrating need for 24/7 superv ision, unsafe discharge disposition, not yet able to mobilize at level safe for home dischar ge and AMPAC indicating significant impairment with basic functional mobility. Dennis will benefit from continued therapeutic intervention to address ongoing impairments and increase safety and independence with activities necessary for safe discharge. Refer be low for specific details regarding functional levels. Physical Therapy Discharge Recommendations are: Recommended discharge disposition: (ILF with spouse) Post discharge physical therapy recommendation: home health Equipment Recommendations: (TBD) Planned Interventions: balance training, bed mobility training, gait training, home exerci se program, transfer training, patient/family education, strengthening, stair training, daxa r coordination training Frequency: daily (1-2x/day) Patient Status/Goals: Reflects last filed data and may be from multiple contributors. Bed Mobility extra time, no physical assistance provided Assistive Device: none Roll Left, Level of [place]oulder: modified independent Roll Right, Level of [place]: modified independent Supine to Sit, Level of [place]: supervised Sit to Supine, Level of [place]: supervised Impairments: coordination impaired Transfers SBA for safety d/t impaired balance and dec.safety awareness. Bed-Chair, Level of [place]: stand by assist Chair-Bed, Level of [place]: stand by assist [id number], Assistive Device: none Sit-Stand, Level of [place]: stand by assist Stand-Sit, Level of [place]: stand by assist [id number], Assistive Device: none Safety Issues: balance decreased during turns Impairments: strength decreased, impaired balance, coordination impaired Gait gait instability when turning, LOB to R but no falls. Curbs with verbal cues. Grass/uneve n ground no LOB CGA. Level of [place]oulder: contact guard assist Assistive Device: none Distance (feet): 400 Gait Deviations: step length decreased, tbl-ab-tpyht clearance decreased Impairments: strength decreased, impaired balance, coordination impaired, postural control impaired Stairs verbal cues to clear heel off the edge of the steps for safety, slower descending steps. s tep up/down 6" platform to simulate curb CGA Number of Stairs: 12 Handrail Location: both sides Level of Boulder: contact guard assist Assistive Device: 2 rails Technique Used: step over step (ascending), step over step (descending) Safety Issues: balance decreased during turns Impairments: strength decreased, impaired balance, coordination impaired Therapeutic Exercise Balance exercises: walk forward, walk backwards, sidestep, step over obstacles, single step /stair, grapevine, tandem walk forward, tandem walk backward, throw, catch Repetitions: put pt in suspended gait monkey trainer with harnessa and boxed forward/back, wa lking forward/back with ball toss and catch,side stepping. Functional Endurance Good PT Goal Review Date Most Recent Value STG Review Date 09/03/17 at 08/31/2017 1545 LTG Review Date 09/12/17 at 08/31/2017 1545 [id number] Goal Most Recent Value STG Status progressing at 09/01/2017 1354 STG [place] Level modified independent at 08/31/2017 1545 STG Assistive Device none at 08/31/2017 1545 Znn-Elsys-Cer Goal Most Recent Value STG Status progressing at 09/01/2017 1354 STG [place] Level supervised at 08/31/2017 1545 STG Assistive Device none at 08/31/2017 1545 LTG Status new at 08/31/2017 1545 LTG [place] Level independent at 08/31/2017 1545 LTG Assistive Device none at 08/31/2017 1545 Gait Goal Most Recent Value STG Status progressing at 09/01/2017 1354 STG [place] Level stand by assist at 08/31/2017 1545 STG Assistive Device none, cane (straight, single point) at 08/31/2017 1545 STG Distance (feet) 200' at 08/31/2017 1545 STG Comments none vs SPC at 08/31/2017 1545 LTG Status new at 08/31/2017 1545 LTG [place] Level independent at 08/31/2017 1545 LTG Assistive Device none at 08/31/2017 1545 Stair Goal Most Recent Value STG Status continued at 09/01/2017 1354 STG [place] Level supervised at 08/31/2017 1545 STG Assistive Device 2 rails at 08/31/2017 1545 STG Number of Stairs 12 at 08/31/2017 1545 LTG Status new at 08/31/2017 1545 LTG [place] Level modified independent at 08/31/2017 1545 LTG Assistive Device 2 rails at 08/31/2017 1545 LTG Number of Stairs 12 at 08/31/2017 1545 Additional Goal #1 PT Most Recent Value STG Status new at 08/31/2017 1545 STG Improve DGI score to 19/24 to dec.fall risk at 08/31/2017 1545 Electronically signed by: Odessa Anguiano PTA, 09/01/2017 13:59 Goal Evaluation: lan of Care - Nighat Angeles Chaplain - 09/01/2017 12:34 PM PDTProblem: Patient Care Overview (Adult) Goal: Care Team Goals & Evaluation PROBLEM-RELATED GOALS: Will be mod ind in room by 4/30/18 Will have a BM every other day by 09/03/17 Will have not falls during hospital stay Cognitive function will return to baseline by 09/07/17 Pt will be independent in functional transfers and ambulation w/o AD. Dennis will maintain adequate oxygenation via oximetry with SpO2 >90%. STRATEGY TO ACHIEVE GOALS: Encourage ambulation and have pt do all assigned therapies Administer bowel meds if no BM by day 2 Ensure bed alarm is on and call light is within reach. encourage pt to express wants and ideas and give extra time if needed - Full participation in PT session in functional mobility training Monitor saturations via oximetry and titrate to order as indicated. Spiritual Care Dennis Cabrera is a 82 y.o. male who is admitted for CVA. Supervisor Logging visit was part of routine rounding. Spiritual Evaluation: Patient was sitting up in a chair eating lunch. He welcomed spiritual care and had a pleas ant, accepting attitude. He expressed that this is his first hospitalization, and that he i s going with the flow. He appreciates his care here. He expressed confusion about what hap pened to him, and cannot recall what brought him here. He has a support system through his and children. He is a [employer] and attends a [employer] in [place]. Spiritual Interventions: The unit manager debriefed stress of illness, identified concerns, explored meaning and values and offered prayer. Spiritual Outcomes: The patient seems to be coping as well as he can with the situation and had peace. He sanjuana res clarity about what happened to him. Spiritual Goals/Follow-up: Follow up by contacting the nurse to educate patient on his condition. lan of Care - Anuradha Tang, PT - 09/01/2017 11:00 AM PDT Problem: Patient Care Overview (Adult) Goal: Care Team Goals & Evaluation PROBLEM-RELATED GOALS: Will be mod ind in room by 09/07/17 Will have a BM every other day by 09/03/17 Will have not falls during hospital stay Cognitive function will return to baseline by 09/07/17 Pt will be independent in functional transfers and ambulation w/o AD. Dennis will maintain adequate oxygenation via oximetry with SpO2 >90%. STRATEGY TO ACHIEVE GOALS: Encourage ambulation and have pt do all assigned therapies Administer bowel meds if no BM by day 2 Ensure bed alarm is on and call light is within reach. encourage pt to express wants and ideas and give extra time if needed - Full participation in PT session in functional mobility training Monitor saturations via oximetry and titrate to order as indicated. Outcome: Improving IRF Physical Therapy Plan of Care Treatment Note Summary: .Dennis has been participating in physical therapy for treatment of Gait instabi lity, imapired balance, dec.functional mobility d/t CVA. Hx of multiple back surgeries and has an implated spine stimulator for pain control.. Emphasis of session included transfers and gait training. Pt demonstrated gait instability, LOB to (R) but able to recover by hold ing on the moreno rail. Remaining barriers to discharge and functional limitations include decreased insight into safety and deficits, decreased bed mobility, decreased functional tr ansfers, demonstrating need for 24/7 supervision, unsafe discharge disposition, not yet able to mobilize at level safe for home discharge and medical status. Dennis will benefit from continued therapeutic intervention to address ongoing impairments and increase safety and independence with activities necessary for safe discharge. Refer be low for specific details regarding functional levels. Physical Therapy Discharge Recommendations are: Recommended discharge disposition: (ILF with spouse) Post discharge physical therapy recommendation: home health Equipment Recommendations: (TBD) Planned Interventions: balance training, bed mobility training, gait training, home exerci se program, transfer training, patient/family education, strengthening, stair training, daxa r coordination training Frequency: daily (1-2x/day) Patient Status/Goals: Reflects last filed data and may be from multiple contributors. Bed Mobility extra time, no physical assistance provided Assistive Device: none Roll Left, Level of [place]oulder: modified independent Roll Right, Level of [place]: modified independent Supine to Sit, Level of [place]: supervised Sit to Supine, Level of [place]: supervised Impairments: coordination impaired Transfers SBA for safety d/t impaired balance and dec.safety awareness. Bed-Chair, Level of [place]: stand by assist Chair-Bed, Level of [place]: stand by assist [id number], Assistive Device: none Sit-Stand, Level of [place]: stand by assist Stand-Sit, Level of [place]: stand by assist [id number], Assistive Device: none Safety Issues: balance decreased during turns Impairments: strength decreased, impaired balance, coordination impaired Gait Gait instability when turning and distraction. Verbal cues for scanning to (R). Occasiona l LOB to (R) but able to recover by holding on to moreno railing Level of Boulder: contact guard assist Assistive Device: none Distance (feet): 250 Gait Deviations: step length decreased, jza-hs-ahdle clearance decreased Impairments: strength decreased, impaired balance, coordination impaired, postural control impaired PT Goal Review Date Most Recent Value STG Review Date 09/03/17 at 08/31/2017 1545 LTG Review Date 09/12/17 at 08/31/2017 1545 [id number]-Tzttls Goal Most Recent Value STG Status progressing at 09/01/2017 1354 STG [place] Level modified independent at 08/31/2017 1545 STG Assistive Device none at 08/31/2017 1545 Ksv-Dbvtc-Xhg Goal Most Recent Value STG Status progressing at 09/01/2017 1354 STG [place] Level supervised at 08/31/2017 1545 STG Assistive Device none at 08/31/2017 1545 LTG Status new at 08/31/2017 1545 LTG [place] Level independent at 08/31/2017 1545 LTG Assistive Device none at 08/31/2017 1545 Gait Goal Most Recent Value STG Status progressing at 09/01/2017 1354 STG [place] Level stand by assist at 08/31/2017 1545 STG Assistive Device none, cane (straight, single point) at 08/31/2017 1545 STG Distance (feet) 200' at 08/31/2017 1545 STG Comments none vs SPC at 08/31/2017 1545 LTG Status new at 08/31/2017 1545 LTG [place] Level independent at 08/31/2017 1545 LTG Assistive Device none at 08/31/2017 1545 Stair Goal Most Recent Value STG Status continued at 09/01/2017 1354 STG [place] Level supervised at 08/31/2017 1545 STG Assistive Device 2 rails at 08/31/2017 1545 STG Number of Stairs 12 at 08/31/2017 1545 LTG Status new at 08/31/2017 1545 LTG [place] Level modified independent at 08/31/2017 1545 LTG Assistive Device 2 rails at 08/31/2017 1545 LTG Number of Stairs 12 at 08/31/2017 1545 Additional Goal #1 PT Most Recent Value STG Status new at 08/31/2017 1545 STG Improve DGI score to to apr.fall risk at 08/31/2017 1545 Electronically signed by: ANURADHA TANG, PT, 09/01/2017 15:09 lan of Care - magaly Pulido Sandy RCHRIS - 09/01/2017 9:43 AM PDTFormatting of this note might be different from th e original. Problem: Patient Care Overview (Adult) Goal: Care Team Goals & Evaluation PROBLEM-RELATED GOALS: Will be mod ind in room by 09/07/17 Will have a BM every other day by 09/03/17 Will have not falls during hospital stay Cognitive function will return to baseline by 09/07/17 Pt will be independent in functional transfers and ambulation w/o AD. Dennis will maintain adequate oxygenation via oximetry with SpO2 >90%. STRATEGY TO ACHIEVE GOALS: Encourage ambulation and have pt do all assigned therapies Administer bowel meds if no BM by day 2 Ensure bed alarm is on and call light is within reach. encourage pt to express wants and ideas and give extra time if needed - Full participation in PT session in functional mobility training Monitor saturations via oximetry and titrate to order as indicated. Outcome: Improving IRF Occupational Therapy Plan of Care Treatment Note Summary: Jin has been participating in occupational therapy for treatment of Decreased A DL independence and functional mobility s/p admission for CVA. Hx of multiple back surgeri es and has an implated spine stimulator for pain control.. Emphasis of session included Mor torres ADL's with shower, dress and groom. Patient demonstrates progress towards functional g oals as evidenced by Pt does not require physical assist with self care tasks, however, he d oes require 1-2 step vc's,and when ambulating to from shower, Jin presented with unsteady ga it patterns but no LOB. Remaining barriers to discharge and functional limitations include decreased insight into safety and deficits, decreased functional activity tolerance, decreas ed ability to perform IADLs, decreased ability to perform medication management and demonstr ating need for 24/7 supervision. Dennis will benefit from continued therapeutic intervention to address ongoing impairments and increase safety and independence with activities necessary for safe discharge. Refer be low for specific details regarding functional levels. Occupational Therapy Discharge Recommendations are: Recommended discharge disposition: home with assist Post discharge occupational therapy recommendation: home health Equipment Recommendations: shower chair, grab bars Planned Interventions:ADL retraining, IADL retraining, balance training, cognitive retraini ng, neuromuscular re-education Recommended Frequency: Patient Status/Goals: Reflects last filed data and may be from multiple contributors. ADLs Pt is half in/half out of bed, his feet are on the floor, sleeping, his tray table is on t he other side of his bed, in front of his chair, and he has not eaten yet. Pt able to set up his breakfast, tray, he ambulated to/from shower room, completed toileting and grooming t his am as well. VC's to shower from sitting for increased safety d/t decreased static standing balance. VC to stand using grab bar for remberto care. Bathing, Level of [place]oulder: stand by assist, verbal cues required Assistive Device: grab bars, hand-held shower head, shower chair with back Bathing Assess/Train, Position: sitting, standing Bathing Assess/Train, Impairments: impaired balance, motor control impaired, other (see com ments) (deficits in STM and problem solving) Les could not tell this therapist if he hand any clean clothes to uche after his shower. He is able to complete dressing with set up only UB Dressing, Level of [place]: set up required Assistive Device: none UB Dressing Assess/Train, Position: sitting UB Dressing Assess/Train, Impairments: impaired balance, motor control impaired (deficits i n STM and problem solving) VC's required to have pt sit to thread clothing over his feet to reduce risk of LOB. LB Dressing, Level of [place]: set up required, verbal cues required Assistive Device: none LB Dressing Assess/Train, Position: sitting, standing LB Dressing Assess/Train, Impairments: impaired balance, motor control impaired (deficits i n STM and problem solving) Toileting, Level of [place]oulder: supervised Assistive Device: grab bar Toileting Assess/Train, Position: sitting, standing Toileting Assess/Train, Impairments: strength decreased, impaired balance Grooming, Level of [place]: supervised Assistive Device: none Grooming Assess/Train, Position: standing Grooming Assess/Train, Impairments: impaired balance, coordination impaired, motor control impaired Pt able to remove lids and open packets, but pt may need help selecting his menu d/t items missed like butter for toast, jelly, and sugar for his hot ceral. Self-Feeding, Level of [place]: stand by assist Assistive Device: none Self-Feeding Assess/Train, Position: sitting Self-Feeding Assess/Train, Impairments: (deficits in STM and problem solving) Bed Mobility no physcial assist provided Assistive Device: none Roll Left, Level of [place]: modified independent Roll Right, Level of [place]: modified independent Supine to Sit, Level of [place]: modified independent Sit to Supine, Level of [place]: supervised Safety Issues: cognitive deficits limit understanding Impairments: coordination impaired Transfers Pt ambulated around foot of bed to chair for breakfast with CGA and 1 word VC's for directi on. Bed-Chair, Level of [place]: contact guard assist, verbal cues required Chair-Bed, Level of [place]: verbal cues required, contact guard assist [id number], Assistive Device: none Sit-Stand, Level of [place]: stand by assist Stand-Sit, Level of [place]: verbal cues required [id number], Assistive Device: none Toilet, Level of [place]: supervised Toilet, Assistive Device: grab bars Walk-in shower, Level of [place]: stand by assist, verbal cues required Walk-in shower, Assistive Device: grab bars, shower chair Safety Issues: balance decreased during turns, step length decreased Impairments: strength decreased, impaired balance, coordination impaired OT Goal Review Date Most Recent Value STG Review Date 09/04/17 at 08/31/2017 1704 LTG Review Date 09/11/17 at 08/31/2017 1704 Grooming Goal Most Recent Value STG Status met at 09/01/2017 0851 STG [place] Level supervised at 08/31/2017 1704 LTG Status progressing at 09/01/2017 0851 LTG [place] Level modified independent at 08/31/2017 1704 LB Dressing Goal Most Recent Value STG Status progressing at 09/01/2017 0851 STG [place] Level supervised at 08/31/2017 1704 LTG Status progressing at 09/01/2017 0851 LTG [place] Level modified independent at 08/31/2017 1704 Toilet Transfer Goal Most Recent Value STG Status met at 09/01/2017 0851 STG [place] Level supervised at 08/31/2017 1704 LTG Status progressing at 09/01/2017 0851 LTG [place] Level modified independent at 08/31/2017 1704 Tub/Shower Transfer Goal Most Recent Value Tub/Shower Type tub/shower combo at 08/31/2017 1704 STG Status progressing at 09/01/2017 0851 STG [place] Level contact guard assist at 08/31/2017 1704 STG Assistive Device shower chair, grab bars at 09/01/2017 1558 LTG Status progressing at 09/01/2017 0851 LTG [place] Level supervised at 08/31/2017 1704 Electronically signed by: CHRIS Espinoza, 09/01/2017 16:09 lan of Robbie - Kimberly Nguyễn RN - 09/01/2017 8:02 AM PDTProblem: Patient Care Overview (Adult) Goal: Care Team Goals & Evaluation PROBLEM-RELATED GOALS: Will be mod ind in room by 09/07/17 Will have a BM every other day by 09/03/17 Will have not falls during hospital stay Cognitive function will return to baseline by 09/07/17 Pt will be independent in functional transfers and ambulation w/o AD. Dennis will maintain adequate oxygenation via oximetry with SpO2 >90%. STRATEGY TO ACHIEVE GOALS: Encourage ambulation and have pt do all assigned therapies Administer bowel meds if no BM by day 2 Ensure bed alarm is on and call light is within reach. encourage pt to express wants and ideas and give extra time if needed - Full participation in PT session in functional mobility training Monitor saturations via oximetry and titrate to order as indicated. 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 lan of Robbie - Frannie Saul, [employer]UM[employer] RELATIONS OFFICER - 08/31/2017 5:58 PM PDT Problem: Patient Care Overview (Adult) Goal: Care Team Goals & Evaluation PROBLEM-RELATED GOALS: Will be mod ind in room by 09/07/17 Will have a BM every other day by 09/03/17 Will have not falls during hospital stay Cognitive function will return to baseline by 09/07/17 Pt will be independent in functional transfers and ambulation w/o AD. Dennis will maintain adequate oxygenation via oximetry with SpO2 >90%. STRATEGY TO ACHIEVE GOALS: Encourage ambulation and have pt do all assigned therapies Administer bowel meds if no BM by day 2 Ensure bed alarm is on and call light is within reach. encourage pt to express wants and ideas and give extra time if needed - Full participation in PT session in functional mobility training Monitor saturations via oximetry and titrate to order as indicated. Outcome: Improving Goal Evaluation: Severity Score 2 Class 1 SpO2 96 % on room air Breath sounds are clear. Will monitor patient for changing respiratory needs. Severity Score 0-4 ITEM 0 1 2 3 4 1 Respiratory History No Smoking history Current tobacco use Up to 10 Pack year history. Simple home regimen Known Pulmonary Disease 20 pack year history Complex Home regimen 30+ pack year history Severe Pulmonary Disease or exacerbation 0 Surgery Status (current admission) No surgery Minor surgery Lower abdominal rib fractures Thoracic or uppe r abdominal Thoracic with pulmonary disease or Central Nervous System 1 Chest X-RAY Clear or Normal baseline Unavailable Improving/clearing Abnormal, Unilateral or mild Infiltrates or atelectasis, Chronic changes Infiltrates mild bilateral or unilateral or pleural effusions extensive Inf iltrates, atelectasis or pleural effusions, pneumothorax 0 Respiratory Pattern Regular pattern Respiratory Rate:8-20 Increased Respiratory Rate, labored Dyspnea on exertion, irregular pattern Use of accessory muscles, prolonged expirato ry phase nasal flaring Severe Dyspnea , Purse Lip Breathing, Use of accessory muscles 0 Breath Sounds Clear Diminished unilaterally Diminished bilaterally &/or crackles Wheezing or Rhonchi &/or absent unilateral Absent bilaterally 0 Cough Strong, non productive Moderate, loose, productive Weak, non-productive Weak, ineffective Non-spontaneous or may require suctioning 0 Sputum None Scant / Thin White/clear Moderate Beige/ yellow Large / Thick Dark Green/Brown Copious / Plugs Hemoptysis aliya 0 LOC Alert, oriented, cooperative Disoriented, follows commands Obtunded, arousable, follo ws commands Obtunded, uncooperative, sedated Comatose 0 Oxygen Demand Room air Baseline 1-2 liters 3-6 liters >7 Liters Oxymizer to > 55% 60% or greater Total Severity Score (SS) Class 0-3 1 4-7 2 8-11 3 12-14 4 15+ 5 lan of Care - Ashley Franklin RN - 08/31/2017 5:54 PM PDTProblem: Patient Care Overview (Adult) Goal: Care Team Goals & Evaluation PROBLEM-RELATED GOALS: Will be mod ind in room by 09/07/17 Will have a BM every other day by 09/03/17 Will have not falls during hospital stay Cognitive function will return to baseline by 09/07/17 Pt will be independent in functional transfers and ambulation w/o AD. STRATEGY TO ACHIEVE GOALS: Encourage ambulation and have pt do all assigned therapies Administer bowel meds if no BM by day 2 Ensure bed alarm is on and call light is within reach. encourage pt to express wants and ideas and give extra time if needed - Full participation in PT session in functional mobility training Outcome: Improving Goal Evaluation: pt alert and oriented to self only. Pleasant. Denies pain or discomfort.Up w/ 1 person sba to BR. PVR 26. Lungs w/ fine crackles to bases. 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 Chest xray obtaine d. General diet. BM 2 days ago per pt. Slight aphasia is the only neuro deficit noted. MS oglesby. lan of Care - La Dent OT - 08/31/2017 5:18 PM PDTFormatting of this note might be different from emmett brian. Problem: Patient Care Overview (Adult) Goal: Care Team Goals & Evaluation PROBLEM-RELATED GOALS: Will be mod ind in room by 09/07/17 Will have a BM every other day by 09/03/17 Will have not falls during hospital stay Cognitive function will return to baseline by 09/07/17 Pt will be independent in functional transfers and ambulation w/o AD. STRATEGY TO ACHIEVE GOALS: Encourage ambulation and have pt do all assigned therapies Administer bowel meds if no BM by day 2 Ensure bed alarm is on and call light is within reach. encourage pt to express wants and ideas and give extra time if needed - Full participation in PT session in functional mobility training IRF Occupational Therapy Plan of Care Initial Evaluation, Treatment Note Summary: Dennis presents to occupational therapy with Decreased ADL independence and fun ctional mobility s/p admission for CVA. Hx of multiple back surgeries and has an implated spine stimulator for pain control.. Objective exam reveals impairments with arousal, attent ion, and cognition, gait, locomotion, and balance, ergonomics and body mechanics, aerobic ca pacity/endurance, muscle performance, neuromotor, word finding difficulties, decreased safet y awareness. Barriers to discharge and functional limitations include decreased insight int o safety and deficits, decreased functional activity tolerance, decreased functional transfe rs, decreased ability to perform ADLs, decreased ability to perform IADLs, decreased ability to perform medication management, demonstrating need for 24/7 supervision and not yet able to mobilize at level safe for home discharge. Patient will benefit from IRF to promote and r egain functional independence with ADLs. Dennis will benefit from therapeutic intervention to address impairments and increase safet y and independence with activities necessary for safe discharge. Refer below for specific d etails regarding functional levels. Precautions/Limitations: falls Previous Level of Function: Transferring: independent Ambulation: independent Toileting: independent Bathing: independent Dressing: independent Eating: independent Communication: understands/communicates without difficulty Swallowin-->swallows foods/liquids without difficulty Equipment Currently Used at Home: cane, straight, single point Prior Functional Level Comment: Per chart note, pt was independent with ADL's and ambulates using SPC. Hx of multiple back surgeries, has an implant, spine stimulator. Potential available assistance at discharge: Significant Relationships: spouse Provides Primary Care For: no one Living Environment/Accessibility: Lives With: spouse Living Arrangements: [place] [place] Home Accessibility: no concerns Transportation Available: family or friend will provide Living Environment Comment: walk-in shower and tub/shower pt feels there may be shower hua perez and grab bars Patient/Family s Goals: home with Rehabilitation potential: good, to achieve stated therapy goals Occupational Therapy Discharge Recommendations are: Recommended discharge disposition: home with assist Post discharge occupational therapy recommendation: home health Equipment Recommendations: shower chair Planned Interventions:ADL retraining, IADL retraining, balance training, cognitive retraini ng, neuromuscular re-education Recommended Frequency: Patient Status/Goals: Reflects last filed data and may be from multiple contributors. ADLs increased time and effort to complete LB dressing. LB Dressing, Level of [place]: contact guard assist LB Dressing Assess/Train, Position: sitting, supported standing LB Dressing Assess/Train, Impairments: decreased flexibility, ROM decreased, postural contr ol impaired Toileting, Level of [place]: contact guard assist Assistive Device: grab bar Toileting Assess/Train, Position: sitting, supported standing Toileting Assess/Train, Impairments: strength decreased, postural control impaired, impaire d balance Cognitive Difficulty with word finding. Orientation: disoriented to, place, time, situation Bed Mobility no physcial assist provided Assistive Device: none Roll Left, Level of [place]: modified independent Roll Right, Level of [place]: modified independent Supine to Sit, Level of [place]: supervised Sit to Supine, Level of [place]: supervised Impairments: coordination impaired, decreased flexibility Transfers v/c for safety and sequencing. Bed-Chair, Level of [place]: verbal cues required, contact guard assist Chair-Bed, Level of [place]: verbal cues required, contact guard assist [id number], Assistive Device: none Sit-Stand, Level of [place]: contact guard assist Stand-Sit, Level of [place]: contact guard assist [id number], Assistive Device: none Toilet, Level of [place]: contact guard assist, verbal cues required Toilet, Assistive Device: grab bars Safety Issues: balance decreased during turns, step length decreased Impairments: impaired balance, strength decreased, coordination impaired, postural control impaired ROM L UE ROM: WFL R UE ROM: WFL Strength L UE Strength: WFL R UE Strength: 4/5 OT Goal Review Date Most Recent Value STG Review Date 09/04/17 at 08/31/2017 1704 LTG Review Date 09/11/17 at 08/31/2017 1704 Grooming Goal Most Recent Value STG Status new at 08/31/2017 1704 STG [place] Level supervised at 08/31/2017 1704 LTG Status new at 08/31/2017 1704 LTG [place] Level modified independent at 08/31/2017 1704 LB Dressing Goal Most Recent Value STG Status new at 08/31/2017 1704 STG [place] Level supervised at 08/31/2017 1704 LTG Status new at 08/31/2017 1704 LTG [place] Level modified independent at 08/31/2017 1704 Toilet Transfer Goal Most Recent Value STG Status new at 08/31/2017 1704 STG [place] Level supervised at 08/31/2017 1704 LTG Status new at 08/31/2017 1704 LTG [place] Level modified independent at 08/31/2017 1704 Tub/Shower Transfer Goal Most Recent Value Tub/Shower Type tub/shower combo at 08/31/2017 1704 STG Status new at 08/31/2017 1704 STG [place] Level contact guard assist at 08/31/2017 1704 STG Assistive Device shower chair, grab bars at 08/31/2017 1704 LTG Status new at 08/31/2017 1704 LTG [place] Level supervised at 08/31/2017 1704 Electronically signed by: [place] OT, 08/31/2017 17:16 lan of Care - Anuradha Tang, PT - 08/31/2017 3:45 PM PDT Problem: Patient Care Overview (Adult) Goal: Care Team Goals & Evaluation PROBLEM-RELATED GOALS: Will be mod ind in room by 09/07/17 Will have a BM every other day by 09/03/17 Will have not falls during hospital stay Cognitive function will return to baseline by 09/07/17 Pt will be independent in functional transfers and ambulation w/o AD. STRATEGY TO ACHIEVE GOALS: Encourage ambulation and have pt do all assigned therapies Administer bowel meds if no BM by day 2 Ensure bed alarm is on and call light is within reach. encourage pt to express wants and ideas and give extra time if needed - Full participation in PT session in functional mobility training IRF Physical Therapy Plan of Care Treatment, Initial Evaluation Note Summary: Dennis presents to physical therapy with Gait instability, imapired balance, de c.functional mobility d/t CVA. Hx of multiple back surgeries and has an implated spine stim ulator for pain control.. Objective exam reveals impairments with arousal, attention, and c ognition, gait, locomotion, and balance, ergonomics and body mechanics, aerobic capacity/end urance, muscle performance, neuromotor. Pt appears to have some difficulty word finding and unable to recall where he lives. Pt ambulates with wide base gait and occasional LOB towards (R) side and when turning. Barriers to discharge and functional limitations include decrea sed insight into safety and deficits, decreased bed mobility, decreased functional transfers , demonstrating need for 24/7 supervision, not yet able to mobilize at level safe for home d ischarge and medical status. DGI test score indicates that pt is a high fall risk. Dennis will benefit from therapeutic intervention to address impairments and increase safet y and independence with activities necessary for safe discharge. Refer below for specific d etails regarding functional levels. Precautions/Limitations: falls Previous Level of Function: Transferring: independent Ambulation: independent Toileting: independent Bathing: independent Dressing: independent Eating: independent Communication: understands/communicates without difficulty Swallowin-->swallows foods/liquids without difficulty Equipment Currently Used at Home: cane, straight, single point Prior Functional Level Comment: Per chart note, pt was independent with ADL's and ambulates using SPC. Hx of multiple back surgeries, has an implant, spine stimulator. Potential available assistance at discharge: Significant Relationships: spouse Provides Primary Care For: no one Living Environment/Accessibility: Lives With: spouse Living Arrangements: independent living [place] [place] Home Accessibility: no concerns Transportation Available: family or friend will provide Living Environment Comment: walk-in shower and tub/shower pt feels there may be shower hua r and grab bars Patient/Family s Goals: to return to PLOF Rehabilitation potential: good, to achieve stated therapy goals Physical Therapy Discharge Recommendations are: Recommended discharge disposition: (ILF with spouse) Post discharge physical therapy recommendation: home health Equipment Recommendations: (TBD) Planned Interventions: balance training, bed mobility training, gait training, home exerci se program, transfer training, patient/family education, strengthening, stair training, daxa r coordination training Frequency: daily (1-2x/day) Patient Status/Goals: Reflects last filed data and may be from multiple contributors. Bed Mobility extra time, no physical assistance provided Assistive Device: none Roll Left, Level of [place]: modified independent Roll Right, Level of [place]: modified independent Supine to Sit, Level of [place]: supervised Sit to Supine, Level of [place]: supervised Impairments: coordination impaired, decreased flexibility Transfers verbal cues for correct sequence and technique for safety Bed-Chair, Level of [place]: stand by assist, verbal cues required Chair-Bed, Level of [place]: verbal cues required, stand by assist [id number], Assistive Device: none Safety Issues: balance decreased during turns, step length decreased Impairments: impaired balance, strength decreased, coordination impaired, postural control impaired Gait Pt had LOB when pt made a quick turn which required Min A to recover balance, gait instabil ity, wide base gait, has tendency to have LOB to (R) side Level of [place]: minimal assist (75% patient effort) Assistive Device: none Distance (feet): 150' Gait Deviations: step length decreased, [id number] clearance decreased Impairments: strength decreased, impaired balance, coordination impaired, postural control impaired Stairs verbal cues to clear heel off the edge of the steps for safety, slower descending steps. s tep up/down 6" platform to simulate curb CGA Number of Stairs: 12 Handrail Location: both sides Level of [place]: contact guard assist Assistive Device: 2 rails Technique Used: step over step (ascending), step over step (descending) Safety Issues: balance decreased during turns Impairments: strength decreased, impaired balance, coordination impaired Balance Sitting Balance: Static: good balance Sitting Balance: Dynamic: good balance Standing Balance: Static: (G-) Standing Balance: Dynamic: (G-) Standardized Tests: Dynamic Gait Index Gait Level Surface: 1 - Moderate impairment, walk 20', slow speed, abnormal gait pattern, e vidence of imbalance Change in Gait Speed: 1 - Moderate impairment: makes only minor adj. of walking speed or ac complishes a change in speed w/ signify gait deviation or changes speed but has a signif. ga it deviation or changes speed but loses balance but is able to recover & continue walking. Horizontal Head Turns: 2 - Mild impairment: performs head turns smoothly with slight change in gait velocity, ie: minor disruption to smooth gait or uses walking aid Vertical Head Turns: 2 - Mild impairment: performs head turns smoothly with slight change i n gait velocity, ie minor disruption to smooth gait path or uses walking aid Gait Pivot Turn: 1 - Moderate impairment: turns slowly, requires verbal cueing, requires se veral small steps to catch balance following turn and stop Step over Obstacle: 1 - Moderate impairment: is able to step over box but must stop, then s tep over. May require verbal cueing Step around Obstacle: 2 - Mild impairment: is able to step around both cones, but must slow down and adjust steps to clear cones Steps: 2 - Mild impairment: alternating feet, must use rail Total score: 12 Dynamic Gait Index: Dennis scored 12 on the Dynamic Gait Index (with no assistive device), indicating he is a high fall risk. Interpretation: - Predicts fall risk <19 = high fall risk 19-22 = moderate fall risk > 22 = low fall risk <19/24 = predictive of falls in elderly >22/24 = more likely to be safe ambulator For more information, please visit: http://[email or web address]/Lists/RehabMeasures/DispForm.aspx?BN=128 Functional Endurance Good ROM L LE ROM: WFL R LE ROM: WFL Strength L LE Strength: grossly graded 4-/5 R LE Strength: grossly graded 4-/5 PT Goal Review Date Most Recent Value STG Review Date 09/03/17 at 08/31/2017 1545 LTG Review Date 09/12/17 at 08/31/2017 1545 [id number] Goal Most Recent Value STG Status new at 08/31/2017 1545 STG [place] Level modified independent at 08/31/2017 1545 STG Assistive Device none at 08/31/2017 1545 Vkk-Ihhmx-Lgu Goal Most Recent Value STG Status new at 08/31/2017 1545 STG [place] Level supervised at 08/31/2017 1545 STG Assistive Device none at 08/31/2017 1545 LTG Status new at 08/31/2017 1545 LTG [place] Level independent at 08/31/2017 1545 LTG Assistive Device none at 08/31/2017 1545 Gait Goal Most Recent Value STG Status new at 08/31/2017 1545 STG [place] Level stand by assist at 08/31/2017 1545 STG Assistive Device none, cane (straight, single point) at 08/31/2017 1545 STG Distance (feet) 200' at 08/31/2017 1545 STG Comments none vs SPC at 08/31/2017 1545 LTG Status new at 08/31/2017 1545 LTG [place] Level independent at 08/31/2017 1545 LTG Assistive Device none at 08/31/2017 1545 Stair Goal Most Recent Value STG Status new at 08/31/2017 154 STG [place] Level supervised at 08/31/2017 154 STG Assistive Device 2 rails at 08/31/2017 154 STG Number of Stairs 12 at 08/31/2017 154 LTG Status new at 08/31/2017 154 LTG [place] Level modified independent at 08/31/2017 154 LTG Assistive Device 2 rails at 08/31/2017 154 LTG Number of Stairs 12 at 08/31/2017 154 Additional Goal #1 PT Most Recent Value STG Status new at 08/31/20171544 STG Improve DGI score to 19/24 to dec.fall risk at 08/31/20171544 Electronically signed by: ANURADHA TANG, PT, 08/31/2017 17:21 documented in this enc ounter Plan of Treatment + + +--------+ + + | Name | Type | Priori | Associated Diagnoses | Order Schedule | | | | ty | | | + + +--------+ + + | Physical Therapy - | Outpatient | Routin | Cerebrovascular | Ordered: 09/09/2017 | | Ambulatory Referral | Referral | e | accident (CVA), | | | | | | unspecified | | | | | | mechanism (HCC) | | + + +--------+ + + documented as of this encounter Procedures + +--------+ + + + | Procedure Name | Priori | Date/Time | Associated Diagnosis | Comments | | | ty | | | | + +--------+ + + + | CBC WITH | Routin | 09/09/2017 | | Results for this | | DIFFERENTIAL | e | 6:35 AM | | procedure are in the | | | | PDT | | results section. | + +--------+ + + + | BASIC METABOLIC | Routin | 09/09/2017 | | Results for this | | PANEL | e | 6:35 AM | | procedure are in the | | | | PDT | | results section. | + +--------+ + + + | CBC WITH | Routin | 09/04/2017 | | Results for this | | DIFFERENTIAL | e | 5:52 AM | | procedure are in the | | | | PDT | | results section. | + +--------+ + + + | BASIC METABOLIC | Routin | 09/04/2017 | | Results for this | | PANEL | e | 5:52 AM | | procedure are in the | | | | PDT | | results section. | + +--------+ + + + | CBC WITH | Routin | 09/01/2017 | | Results for this | | DIFFERENTIAL | e | 5:49 AM | | procedure are in the | | | | PDT | | results section. | + +--------+ + + + | PREALBUMIN | Routin | 09/01/2017 | | Results for this | | | e | 5:49 AM | | procedure are in the | | | | PDT | | results section. | + +--------+ + + + | B TYPE NATRIURETIC | Routin | 09/01/2017 | | Results for this | | PEPTIDE | e | 5:49 AM | | procedure are in the | | | | PDT | | results section. | + +--------+ + + + | MAGNESIUM | Routin | 09/01/2017 | | Results for this | | | e | 5:49 AM | | procedure are in the | | | | PDT | | results section. | + +--------+ + + + | COMPREHENSIVE | Routin | 09/01/2017 | | Results for this | | METABOLIC PANEL | e | 5:49 AM | | procedure are in the | | | | PDT | | results section. | + +--------+ + + + | XR CHEST PA AND | Routin | 08/31/2017 | | Results for this | | LATERAL | e | 3:37 PM | | procedure are in the | | | | PDT | | results section. | + +--------+ + + + | ECHO-EXTERNAL SCAN | | 08/25/2017 | | Results for this | | | | 12:00 AM | | procedure are in the | | | | PDT | | results section. | + +--------+ + + + documented in this encounter Results Basic Metabolic Panel (09/09/2017 6:35 AM PDT) + + + + + + | Component | Value | Ref Range | Performed | Pathologist | | | | | At | Signature | + + + + + + | Na | 140 | 136 - 149 | [facility] | | | | | mmol/L | [facility] | | | | | | [facility] | | | | | [facility] | | | | | | [facility] | | + + + + + + | K | 4.4 | 3.5 - 5.1 | [facility] | | | | | mmol/L | [facility] | | | | | [facility] | | | | | | [facility] - | | | | | | [facility]ATORY | | + + + + + + | Cl | 103 | 98 - 109 mmol/L | [facility] | | | | | | [facility] | | | | | | [facility] | | | | | [facility] - | | | | | | [facility] | | + + + + + + | CO2 | 27 | 24 - 31 mmol/L | [facility] | | | | | | [facility] | | | | | | [facility] | | | | | [facility] - | | | | | | [facility] | | + + + + + + | Anion Gap | 10 | 3 - 16 mmol/L | [facility] | | | | | | [facility] | | | | | | [facility] | | | | | [facility] - | | | | | | [facility] | | + + + + + + | Glucose | 108 | 70 - 109 mg/dL | [facility] | | | | | | [facility] | | | | | | [facility] | | | | | | [facility] - | | | | | | [facility]ATORY | | + + + + + + | BUN | 15 | 7 - 18 mg/dL | [facility] | | | | | | [facility] | | | | | | [facility] | | | | | | [facility] - | | | | | | [facility]ORY | | + + + + + + | Creatinine | 1.24 | 0.60 - 1.30 | [facility] | | | | | mg/dL | [facility] | | | | | | [facility] | | | | | | [facility] - | | | | | | [facility]ATORY | | + + + + + + | eGFR if not | 56 (L)Comment: | >=60 | [facility] | | | | GLOMERULAR FILTRATION | mL/min/1.73m2 | [facility] | | | [facility] | RATE,ESTIMATED | | MEDICAL | | | | mL/min/1.62f2Pjla than | | CENTER - | | | | 60 Chronic kidney | | LABORATORY | | | | disease,if found over a | | | | | | 3-month period.Less than | | | | | | 15 Kidney failureFor | | | | | | | | | | | | Americans,multiply the | | | | | | calculated GFR by 1.21. | | | | | | | | | | + + + + + + | Calcium | 9.4 | 8.3 - 10.5 | [facility] | | | | | mg/dL | [facility] | | | | | | [facility] | | | | | | [facility] - | | | | | | LABORATORY | | + + + + + + | BUN/Creatin | 12.1 | | [facility] | | | ine Ratio | | | [facility] | | | | | | [facility] | | | | | | [facility] - | | | | | | LABORATORY | | + + + + + + + + | Specimen | + + | Blood | + + + + + + + | Performing | Address | City/State/Zipcode | Phone Number | | Organization | | | | + + + + + | [facility] | [address] | [place] | [phone] | | [facility] | | [id number] | | | - LABORATORY | | | | + + + + + CBC with Differential (09/09/2017 6:35 AM PDT) + + + + + + | Component | Value | Ref Range | Performed | Pathologist | | | | | At | Signature | + + + + + + | WBC | 4.6 | 4.0 - 11.0 K/uL | [facility] | | | | [facility] | | | | | [facility] - | | | | | | [facility] | | + + + + + + | RBC | 3.70 (L) | 4.30 - 5.70 | [facility] | | | | | M/uL | [facility] | | | | | | [facility] | | | | | | [facility] - | | | | | | LAB[facility]ATORY | | + + + + + + | Hemoglobin | 12.2 (L) | 13.5 - 18.0 | [facility] | | | | | g/dL | [facility] | | | | | | [facility] | | | | | | [facility] - | | | | | | LAB[facility]ATORY | | + + + + + + | Hematocrit | 35.4 (L) | 40.0 - 51.0 % | [facility] | | | | | | [facility] | | | | | | [facility] | | | | | | [facility] - | | | | | | [facility]ATORY | | + + + + + + | MCV | 95.5 | 83.0 - 101.0 fL | [facility] | | | | | [facility] | | | | | [facility] - | | | | | | [facility] | | + + + + + + | MCH | 33.0 | 28.0 - 35.0 pg | [facility] | | | | | | [facility] | | | | | | [facility] | | | | | | [facility] - | | | | | | [facility]ORY | | + + + + + + | MCHC | 34.5 | 32.0 - 36.0 | [facility] | | | | | g/dL | [facility] | | | | | | [facility] | | | | | | [facility] - | | | | | | [facility]ATORY | | + + + + + + | RDW-CV | 13.9 | <15.0 % | [facility] | | | | | | [facility] | | | | | | [facility] | | | | | | [facility] - | | | | | | [facility]ATORY | | + + + + + + | Platelet | 186 | 140 - 440 K/uL | [facility] | | | Count | | | [facility] | | | | | | [facility] | | | | | | [facility] - | | | | | | [facility]ORY | | + + + + + + | MPV | 8.9 | fL | [facility] | | | | | | [facility] | | | | | [facility] | | | | | | [facility] - | | | | | | LAB[facility]ATORY | | + + + + + + | % | 62.3 | 45.0 - 82.0 % | [facility] | | | Neutrophils | | | [facility] | | | | | | [facility] | [facility] | | | | [facility] - | | | | | | LAB[facility]ATORY | | + + + + + + | % | 21.4 | 20.0 - 45.0 % | [facility] | | | Lymphocytes | | | [facility] | | | | | | [facility] | | | | | | [facility] - | | | | | | LABORATORY | | + + + + + + | % Monocytes | 9.4 | 4.0 - 12.0 % | [facility] | | | | | | [facility] | | | | | | [facility] | | | | | | [facility] - | | | | | | LABORATORY | | + + + + + + | % | 6.2 (H) | 0.0 - 5.0 % | [facility] | | | Eosinophils | | | [facility] | | | | | | [facility] | | | | | | [facility] - | | | | | | LABORATORY | | + + + + + + | % Basophils | 0.7 | 0.0 - 1.0 % | [facility] | | | | | | [facility] | | | | | | [facility] | | | | | | [facility] - | | | | | | LABORATORY | | + + + + + + | Absolute | 2.90 | 1.80 - 8.50 | [facility] | | | Neutrophils | | K/uL | [facility] | | | | | | [facility] | | | | | | [facility] - | | | | | | LABORATORY | | + + + + + + | Absolute | 1.00 | 0.60 - 3.20 | [facility] | | | Lymphocytes | | K/uL | [facility] | | | | | | [facility] | | | | | | [facility] - | | | | | | LABORATORY | | + + + + + + | Absolute | 0.40 | 0.00 - 1.00 | [facility] | | | Monocytes | | K/uL | [facility] | | | | | | [facility] | | | | | | [facility] - | | | | | | LABORATORY | | + + + + + + | Absolute | 0.30 | 0.00 - 0.40 | [facility] | | | Eosinophils | | K/uL | [facility] | | | | | | [facility] | | | | | | [facility] - | | | | | | LABORATORY | | + + + + + + | Absolute | 0.00 | 0.00 - 0.10 | [facility] | | | Basophils | | K/uL | [facility] | | | | | | [facility] - | | | | | | LABORATORY | | + + + + + + + + | Specimen | + + | Blood | + + + + + + + | Performing | Address | City/State/Zipcode | Phone Number | | Organization | | | | + + + + + | [facility] | [address] | [place] | [phone] | | [facility] | | [address] | | | - LABORATORY | | | | + + + + + CBC with Differential (09/04/2017 5:52 AM PDT) + + + + + + | Component | Value | Ref Range | Performed | Pathologist | | | | | At | Signature | + + + + + + | WBC | 5.0 | 4.0 - 11.0 K/uL | [facility] | | | | | | [facility] | | | | | | [facility] | | | | | | [facility] - | | | | | | LABORATORY | | + + + + + + | RBC | 3.72 (L) | 4.30 - 5.70 | [facility] | | | | | M/uL | [facility] | | | | | | [facility] | | | | | | [facility] - | | | | | | LABORATORY | | + + + + + + | Hemoglobin | 11.6 (L) | 13.5 - 18.0 | [facility] | | | | | g/dL | [facility] | | | | | | [facility] | | | | | | C[facility] - | | | | | | LABORATORY | | + + + + + + | Hematocrit | 35.4 (L) | 40.0 - 51.0 % | [facility] | | | | | | [facility] | | | | | | [facility] | | | | | | [facility] - | | | | | | LABORATORY | | + + + + + + | MCV | 95.2 | 83.0 - 101.0 fL | [facility] | | | | | | [facility] | | | [facility] | [facility] | | | | | | [facility] - | | | | | | LABORATORY | | + + + + + + | MCH | 31.2 | 28.0 - 35.0 pg | [facility] | | | | | | [facility] | | | | | | [facility] | | | | | | [facility] - | | | | | | LABORATORY | | + + + + + + | MCHC | 32.8 | 32.0 - 36.0 | [facility] | | | | | g/dL | [facility] | | | | | | [facility] | | | | | | [facility] - | | | | | | LABORATORY | | + + + + + + | RDW-CV | 13.9 | <15.0 % | [facility] | | | | | | [facility] | | | | | | [facility] | | | | | | [facility] - | | | | | | LABORATORY | | + + + + + + | Platelet | 208 | 140 - 440 K/uL | [facility] | | | Count | | | [facility] | | | | | | [facility] | | | | | | [facility] - | | | | | | LABORATORY | | + + + + + + | MPV | 9.3 | fL | [facility] | | | | | | [facility] | | | | | | [facility] | | | | | | [facility] - | | | | | | LABORATORY | | + + + + + + | % | 59.7 | 45.0 - 82.0 % | [facility] | | | Neutrophils | | | [facility] | | | | | | [facility] | | | | | | CENTER - | | | | | | LABORATORY | | + + + + + + | % | 23.4 | 20.0 - 45.0 % | [facility] | | | Lymphocytes | | | [facility] | | | | | | [facility] | | | | | | [facility] - | | | | | | LABORATORY | | + + + + + + | % Monocytes | 9.8 | 4.0 - 12.0 % | [facility] | | | | | | [facility] | | | | | | [facility] | | | | | | [facility] - | | | | | | LABORATORY | | + + + + + + | % | 5.9 (H) | 0.0 - 5.0 % | [facility] | | | Eosinophils | | | [facility] | | | | | | [facility] | | | | | | C[facility] - | | | | | | LABORATORY | | + + + + + + | % Basophils | 1.2 (H) | 0.0 - 1.0 % | [facility] | | | | | | [facility] | | | | | | [facility] | | | | | | [facility] - | | | | | | LABORATORY | | + + + + + + | Absolute | 3.00 | 1.80 - 8.50 | [facility] | | | Neutrophils | | K/uL | [facility] | | | | | | [facility] | | | | | | CENTER - | | | | | | LABORATORY | | + + + + + + | Absolute | 1.20 | 0.60 - 3.20 | [facility] | | | Lymphocytes | | K/uL | [facility] | | | | | | [facility] | | | | | | [facility] - | | | | | | LABORATORY | | + + + + + + | Absolute | 0.50 | 0.00 - 1.00 | [facility] | | | Monocytes | | K/uL | [facility] | | | | | | [facility] | | | | | | C[facility] - | | | | | | LABORATORY | | + + + + + + | Absolute | 0.30 | 0.00 - 0.40 | [facility] | | | Eosinophils | | K/uL | [facility] | | | | | | [facility] | | | | | | C[facility] - | | | | | | LABORATORY | | + + + + + + | Absolute | 0.10 | 0.00 - 0.10 | [facility] | | | Basophils | | K/uL | [facility] | | | | | | [facility] | | | | | | CENTER - | | | | | | LABORATORY | | + + + + + + + + | Specimen | + + | Blood | + + + + + + + | Performing | Address | City/State/Zipcode | Phone Number | | Organization | | | | + + + + + | [facility] | [address] | [place] | [phone] | | [facility] | | [address] | | | - LABORATORY | | | | + + + + + Basic Metabolic Panel (09/04/2017 5:52 AM PDT) + + + + + + | Component | Value | Ref Range | Performed | Pathologist | | | | | At | Signature | + + + + + + | Na | 139 | 136 - 149 | [facility] | | | | | mmol/L | [facility] | | | | | | [facility] | | | | | | CENTER - | | | | | | LABORATORY | | + + + + + + | K | 4.3 | 3.5 - 5.1 | [facility] | | | | | mmol/L | [facility] | | | | | | [facility] | | | | | | CENTER - | | | | | | LABORATORY | | + + + + + + | Cl | 103 | 98 - 109 mmol/L | [facility] | | | | | | [facility] | | | | | | [facility] | | | | | | [facility] - | | | | | | LABORATORY | | + + + + + + | CO2 | 29 | 24 - 31 mmol/L | [facility] | | | | | | [facility] | | [facility] | | [facility] | | | | | | CENTER - | | | | | | LABORATORY | | + + + + + + | Anion Gap | 7 | 3 - 16 mmol/L | [facility] | | | | | | [facility] | | | | | | [facility] | | | | | | C[facility] - | | | | | | LABORATORY | | + + + + + + | Glucose | 101 | 70 - 109 mg/dL | [facility] | | | | | | [facility] | | | | | | [facility] | | | | | | C[facility] - | | | | | | LABORATORY | | + + + + + + | BUN | 25 (H) | 7 - 18 mg/dL | [facility] | | | | | | [facility] | | | | | | [facility] | | | | | | CENTER - | | | | | | LABORATORY | | + + + + + + | Creatinine | 1.32 (H) | 0.60 - 1.30 | [facility] | | | | | mg/dL | [facility] | | | | | | [facility] | | | | | | CENTER - | | | | | | LABORATORY | | + + + + + + | eGFR if not | 52 (L)Comment: | >=60 | [facility] | | | | GLOMERULAR FILTRATION | mL/min/1.73m2 | [facility] | | | [facility] | RATE,ESTIMATED | | MEDICAL | | | | mL/min/1.30p7Seiq than | | CENTER - | | | | 60 Chronic kidney | | LABORATORY | | | | disease,if found over a | | | | | | 3-month period.Less than | | | | | | 15 Kidney failureFor | | | | | | | | | | | | Americans,multiply the | | | | | | calculated GFR by 1.21. | | | | | | | | | | + + + + + + | Calcium | 9.2 | 8.3 - 10.5 | [facility] | | | | | mg/dL | [facility] | | | | | | [facility]ICAL | | | | | | CENTER - | | | | | | LABORATORY | | + + + + + + | BUN/Creatin | 18.9 | | [facility] | | | ine Ratio | | | [facility] | | | | | | MEDICAL | | | | | | CENTER - | | | | | | LABORATORY | | + + + + + + + + | Specimen | + + | Blood | + + + + + + + | Performing | Address | City/State/Zipcode | Phone Number | | Organization | | | | + + + + + | [facility] | [address] | [place] | [phone] | | [facility] | | [address] | | | - LABORATORY | | | | + + + + + B Type Natriuretic Peptide (09/01/2017 5:49 AM PDT) + +-------+ + + + | Component | Value | Ref Range | Performed | Pathologist | | | | | At | Signature | + +-------+ + + + | BNP | 20 | <100 pg/mL | [facility] | | | | | | [facility] | | | | | | [facility]ICAL | | | | | | CENTER - | | | | | | LABORATORY | | + +-------+ + + + + + | Specimen | + + | Blood | + + + + + + + | Performing | Address | City/State/Zipcode | Phone Number | | Organization | | | | + + + + + | [facility] | [address] | [place] | [phone] | | [facility] | | [address] | | | - LABORATORY | | | | + + + + + Prealbumin (09/01/2017 5:49 AM PDT) + +--------+ + + + | Component | Value | Ref Range | Performed | Pathologist | | | | | At | Signature | + +--------+ + + + | Prealbumin | 17 (L) | 18 - 38 mg/dL | [facility] | | | | | | [facility] | | | | | | [facility] | | | | | | CENTER - | | | | | | LABORATORY | | + +--------+ + + + + + | Specimen | + + | Blood | + + + + + + + | Performing | Address | City/State/Zipcode | Phone Number | | Organization | | | | + + + + + | [facility] | [address] | [place] | [phone] | | [facility] | | [address] | | | - LABORATORY | | | | + + + + + Magnesium (09/01/2017 5:49 AM PDT) + +-------+ + + + | Component | Value | Ref Range | Performed | Pathologist | | | | | At | Signature | + +-------+ + + + | Magnesium | 2.2 | 1.8 - 2.5 mg/dL | [facility] | | | | | [facility] | | [facility] | | [facility] | | | | | | C[facility] - | | | | | | LABORATORY | | + +-------+ + + + + + | Specimen | + + | Blood | + + + + + + + | Performing | Address | City/State/Zipcode | Phone Number | | Organization | | | | + + + + + | [facility] | [address] | [place] | [phone] | | [facility] | | [address] | | | - LABORATORY | | | | + + + + + Comprehensive Metabolic Panel (09/01/2017 5:49 AM PDT) + + + + + + | Component | Value | Ref Range | Performed | Pathologist | | | | | At | Signature | + + + + + + | Na | 138 | 136 - 149 | [facility] | | | | | mmol/L | [facility] | | | | | | MEDICAL | | | | | | CENTER - | | | | | | LABORATORY | | + + + + + + | K | 4.2 | 3.5 - 5.1 | [facility] | | | | | mmol/L | [facility] | | | | | | MEDICAL | | | | | | CENTER - | | | | | | LABORATORY | | + + + + + + | Cl | 104 | 98 - 109 mmol/L | [facility] | | | | | | [facility] | | | | | | [facility]ICAL | | | | | | CENTER - | | | | | | LABORATORY | | + + + + + + | CO2 | 29 | 24 - 31 mmol/L | [facility] | | | | | | [facility] | | | | | | [facility]ICAL | | | | | | CENTER - | | | | | | LABORATORY | | + + + + + + | Anion Gap | 5 | 3 - 16 mmol/L | [facility] | | | | | | [facility] | | | | | | [facility]ICAL | | | | | | CENTER - | | | | | | LABORATORY | | + + + + + + | Glucose | 109 | 70 - 109 mg/dL | [facility] | | | | | | [facility] | | | | | | [facility] | | | | | | CENTER - | | | | | | LABORATORY | | + + + + + + | BUN | 41 (H) | 7 - 18 mg/dL | [facility] | | | | | | [facility] | | | | | | [facility] | | | | | | CENTER - | | | | | | LABORATORY | | + + + + + + | Creatinine | 1.62 (H) | 0.60 - 1.30 | [facility] | | | | | mg/dL | [facility] | | | | | | MEDICAL | | | | | | CENTER - | | | | | | LABORATORY | | + + + + + + | eGFR if not | 41 (L)Comment: | >=60 | [facility] | | | | GLOMERULAR FILTRATION | mL/min/1.73m2 | [facility] | | | [place] | RATE,ESTIMATED | | MEDICAL | | | | mL/min/[id number] than | | CENTER - | | | | 60 Chronic kidney | | LABORATORY | | | | disease,if found over a | | | | | | 3-month period.Less than | | | | | | 15 Kidney failureFor | | | | | | | | | | | | Americans,multiply the | | | | | | calculated GFR by 1.21. | | | | | | | | | | + + + + + + | Calcium | 9.1 | 8.3 - 10.5 | [facility] | | | | | mg/dL | [facility] | | | | | | MEDICAL | | | | | | CENTER - | | | | | | LABORATORY | | + + + + + + | Albumin | 3.6 | 3.2 - 5.0 g/dL | [facility] | | | | | | [facility] | | | | | | MEDICAL | | | | | | CENTER - | | | | | | LABORATORY | | + + + + + + | Bilirubin | 0.7 | 0.1 - 1.5 mg/dL | [facility] | | | Total | | | [facility] | | | | | | MEDICAL | | | | | | CENTER - | | | | | | LABORATORY | | + + + + + + | Total | 6.1 | 6.0 - 7.8 g/dL | [facility] | | | Protein | | | [facility] | | | | | | MEDICAL | | | | | | CENTER - | | | | | | LABORATORY | | + + + + + + | AST | 21 | 10 - 42 U/L | [facility] | | | | | | [facility] | | | | | | [facility]ICAL | | | | | | CENTER - | | | | | | LABORATORY | | + + + + + + | ALT | 14 | 6 - 45 U/L | [facility] | | | | | | [facility] | | | | | | [facility]ICAL | | | | | | CENTER - | | | | | | LABORATORY | | + + + + + + | Alkaline | 63 | 40 - 110 U/L | [facility] | | | Phosphatase | | | [facility] | | | | | | MEDICAL | | | | | | CENTER - | | | | | | LABORATORY | | + + + + + + | Globulin | 2.5 | 2.1 - 3.8 g/dL | [facility] | | | | | | [facility] | | | | | | [facility]ICAL | | | | | | CENTER - | | | | | | LABORATORY | | + + + + + + | Albumin/Gwendolyn | 1.4 | 0.8 - 2.0 | [facility] | | | bulin Ratio | | | [facility] | | | | | | MEDICAL | | | | | | CENTER - | | | | | | LABORATORY | | + + + + + + | BUN/Creatin | 25.3 | | [facility] | | | ine Ratio | | | [facility] | | | | | | MEDICAL | | | | | | CENTER - | | | | | | LABORATORY | | + + + + + + + + | Specimen | + + | Blood | + + + + + + + | Performing | Address | City/State/Zipcode | Phone Number | | Organization | | | | + + + + + | [facility] | [address] | [place] | [phone] | | [facility] | | [address] | | | - LABORATORY | | | | + + + + + CBC with Differential (09/01/2017 5:49 AM PDT) + + + + + + | Component | Value | Ref Range | Performed | Pathologist | | | | | At | Signature | + + + + + + | WBC | 5.9 | 4.0 - 11.0 K/uL | [facility] | | | | | [facility] | | | | | | [facility] | | | | | | C[facility] - | | | | | | LABORATORY | | + + + + + + | RBC | 3.85 (L) | 4.30 - 5.70 | [facility] | | | | | M/uL | [facility] | | | | | | MEDICAL | | | | | | CENTER - | | | | | | LABORATORY | | + + + + + + | Hemoglobin | 12.1 (L) | 13.5 - 18.0 | [facility] | | | | | g/dL | [facility] | | | | | | MEDICAL | | | | | | CENTER - | | | | | | LABORATORY | | + + + + + + | Hematocrit | 36.7 (L) | 40.0 - 51.0 % | [facility] | | | | | | [facility] | | | | | | [facility]ICAL | | | | | | CENTER - | | | | | | LABORATORY | | + + + + + + | MCV | 95.2 | 83.0 - 101.0 fL | [facility] | | | | | | [facility] | | | | | | [facility]ICAL | | | | | | CENTER - | | | | | | LABORATORY | | + + + + + + | MCH | 31.4 | 28.0 - 35.0 pg | [facility] | | | | | | [facility] | | | | | | [facility]ICAL | | | | | | CENTER - | | | | | | LABORATORY | | + + + + + + | MCHC | 33.0 | 32.0 - 36.0 | [facility] | | | | | g/dL | [facility] | | | | | | [facility]ICAL | | | | | | CENTER - | | | | | | LABORATORY | | + + + + + + | RDW-CV | 13.8 | <15.0 % | [facility] | | | | | | [facility] | | | | | | [facility] | | | | | | CENTER - | | | | | | LABORATORY | | + + + + + + | Platelet | 190 | 140 - 440 K/uL | [facility] | | | Count | | | [facility] | | | | | | [facility]ICAL | | | | | | CENTER - | | | | | | LABORATORY | | + + + + + + | MPV | 9.4 | fL | [facility] | | | | | | [facility] | | | | | | [facility]ICAL | | | | | | CENTER - | | | | | | LABORATORY | | + + + + + + | % | 64.8 | 45.0 - 82.0 % | [facility] | | | Neutrophils | | | [facility] | | | | | | MEDICAL | | | | | | CENTER - | | | | | | LABORATORY | | + + + + + + | % | 19.0 (L) | 20.0 - 45.0 % | [facility] | | | Lymphocytes | | | [facility] | | | | | | MEDICAL | | | | | | CENTER - | | | | | | LABORATORY | | + + + + + + | % Monocytes | 10.5 | 4.0 - 12.0 % | [facility] | | | | | | [facility] | | | | | | [facility] | | | | | | CENTER - | | | | | | LABORATORY | | + + + + + + | % | 5.0 | 0.0 - 5.0 % | [facility] | | | Eosinophils | | | [facility] | | | | | | MEDICAL | | | | | | CENTER - | | | | | | LABORATORY | | + + + + + + | % Basophils | 0.7 | 0.0 - 1.0 % | [facility] | | | | | | [facility] | | | | | | [facility]ICAL | | | | | | CENTER - | | | | | | LABORATORY | | + + + + + + | Absolute | 3.80 | 1.80 - 8.50 | [facility] | | | Neutrophils | | K/uL | [facility] | | | | | | MEDICAL | | | | | | CENTER - | | | | | | LABORATORY | | + + + + + + | Absolute | 1.10 | 0.60 - 3.20 | [facility] | | | Lymphocytes | | K/uL | [facility] | | | | | | MEDICAL | | | | | | CENTER - | | | | | | LABORATORY | | + + + + + + | Absolute | 0.60 | 0.00 - 1.00 | [facility] | | | Monocytes | | K/uL | [facility] | | | | | | MEDICAL | | | | | | CENTER - | | | | | | LABORATORY | | + + + + + + | Absolute | 0.30 | 0.00 - 0.40 | [facility] | | | Eosinophils | | K/uL | [facility] | | | | | | MEDICAL | | | | | | CENTER - | | | | | | LABORATORY | | + + + + + + | Absolute | 0.00 | 0.00 - 0.10 | [facility] | | | Basophils | | K/uL | [facility] | | | | | | MEDICAL | | | | | | CENTER - | | | | | | LABORATORY | | + + + + + + + + | Specimen | + + | Blood | + + + + + + + | Performing | Address | City/State/Zipcode | Phone Number | | Organization | | | | + + + + + | [facility] | [address] | [place] | [phone] | | [facility] | | [address] | | | - LABORATORY | | | | + + + + + XR Chest PA and Lateral (08/31/2017 3:37 PM PDT) + + | Specimen | + + | | + + + + + | Narrative | Performed At | + + + | CLINICAL INFORMATION: Cough ; r/o infiltrate. COMPARISON: | [facility] | | 07/31/2010. FINDINGS: Frontal and lateral views of the chest. | | | Lungs: Focal airspace opacity noted at the posterior left lower | | | lobe, overlying the spine on the lateral view. Minimal platelike | | | opacities at the right medial lung base. No pleural effusion or | | | pneumothorax. Heart/mediastinum: Cardiac silhouette is of normal | | | size. Central pulmonary vasculature has a normal appearance. | | | Bones: No acute osseous abnormality appreciated. Spinal stimulator | | | wires. IMPRESSION - Focal left lower lobe airspace disease, may | | | represent pneumonia in the appropriate clinical setting. | | | Dictated and Signed by: Tejas Pascual MD Electronically signed: | | | 08/31/2017 7:20 PM | | + + + + + | Procedure Note | + + | [place], Rad Results In - 08/31/2017 7:24 PM PDT CLINICAL INFORMATION: Cough ; r/o | | infiltrate.COMPARISON: 07/31/2010.FINDINGS: Frontal and lateral views of the chest. | | Lungs: Focal airspace opacity noted at the posterior left lower lobe, overlyingthe spine | | on the lateral view. Minimal platelike opacities at the right mediallung base. No | | pleural effusion or pneumothorax.Heart/mediastinum: Cardiac silhouette is of normal | | size. Central pulmonaryvasculature has a normal appearance.Bones: No acute osseous | | abnormality appreciated. Spinal stimulator wires.IMPRESSION - Focal left lower lobe | | airspace disease, may represent pneumonia in theappropriate clinical setting.Dictated | | and Signed by: Tejas Pascual MD Electronically signed: 08/31/2017 7:20 PM | |lung base. No pleural effusion or pneumothorax. | | | |Heart/mediastinum: Cardiac silhouette is of normal size. Central pulmonary | |vasculature has a normal appearance. | | | |Bones: No acute osseous abnormality appreciated. Spinal stimulator wires. | | | |IMPRESSION - | |Focal left lower lobe airspace disease, may represent pneumonia in the | |appropriate clinical setting. | | | | | | | |Dictated and Signed by: Tejas Pascual MD | | Electronically signed: 08/31/2017 7:20 PM | + + + +---------+ + + | Performing | Address | City/State/Zipcode | Phone Number | | Organization | | | | + +---------+ + + | [facility] | | | | + +---------+ + + ECHO-EXTERNAL SCAN (08/25/2017 12:00 AM PDT) + + + | Narrative | Performed At | + + + | Ordered by an | | | unspecified provider. | | + + + documented in this encounter Visit Diagnoses + + | Diagnosis | + + | Abnormal PFTs (pulmonary function tests) Nonspecific abnormal results of pulmonary | | system function study | + + | Chronic obstructive pulmonary disease, unspecified COPD type (HCC) | + + | Disorder of diaphragm Disorders of diaphragm | + + | Cerebrovascular accident (CVA), unspecified mechanism (HCC) | + + | Aphasia | + + | Bronchitis Bronchitis, not specified as acute or chronic | + + | Hypertension Unspecified essential hypertension | + + documented in this encounter Administered Medications + +--------+ +--------+------+------+ | Medication Order | MAR | Action | Dose | Rate | Site | | | Action | Date | | | | + +--------+ +--------+------+------+ | albuterol 2.5 mg/3 mL nebulizer | Given | 09/06/19 | 2.5 mg | | | | solution 2.5 mg 2.5 mg, | | 18 10:03 | | | | | Nebulization, RT EVERY 4 HOURS | | AM PDT | | | | | PRN, Shortness of Breath, | | | | | | | Starting 09/05/17 at 0946, RT | | | | | | | will administer., | | | | | | + +--------+ +--------+------+------+ +---+---+ | | | +---+---+ + +-------+ +--------+---+---+ | albuterol 2.5 mg/3 mL nebulizer | Given | 09/10/19 | 2.5 mg | | | | solution 2.5 mg 2.5 mg, | | 18 8:24 | | | | | Nebulization, 4 TIMES DAILY, | | AM PDT | | | | | First dose (after last | | | | | | | modification) on 09/05/17 at | | | | | | | 1700, RT will administer., | | | | | | + +-------+ +--------+---+---+ +-------+ +--------+---+---+ | Given | 09/09/19 | 2.5 mg | | | | | 18 8:14 | | | | | | PM PDT | | | | +-------+ +--------+---+---+ | Given | 09/09/19 | 2.5 mg | | | | | 18 4:15 | | | | | | PM PDT | | | | +-------+ +--------+---+---+ + +---+ | | | + +---+ | albuterol 2.5 mg/3 mL nebulizer | | | solution Starting 09/05/17 | | | at 1413, For 1 dose, SANDY, | | | VON Draper: rafael swift, | | + +---+ | | | + +---+ + +-------+ +-------+---+---+ | albuterol-ipratropium (DUONEB) | Given | 09/10/19 | 3 mLs | | | | 2.5-0.5 mg/3 mL nebulizer | | 18 12:05 | | | | | solution 3 mL 3 mL, | | PM PDT | | | | | Nebulization, RT TID, First dose | | | | | | | (after last modification) on Wed | | | | | | | 09/09/17 at 1200 | | | | | | + +-------+ +-------+---+---+ +---+---+ | | | +---+---+ + +-------+ +-------+---+---+ | aspirin EC tablet 81 mg 81 mg, | Given | 09/10/19 | 81 mg | | | | Oral, DAILY, First dose on Thu | | 18 8:48 | | | | | 08/31/17 at 1515 | | AM PDT | | | | + +-------+ +-------+---+---+ +-------+ +-------+---+---+ | Given | 09/09/19 | 81 mg | | | | | 18 8:47 | | | | | | AM PDT | | | | +-------+ +-------+---+---+ | Given | 09/08/19 | 81 mg | | | | | 18 8:05 | | | | | | AM PDT | | | | +-------+ +-------+---+---+ +---+---+ | | | +---+---+ + +-------+ +-------+---+---+ | atorvaSTATin (LIPITOR) tablet | Given | 09/09/19 | 10 mg | | | | 10 mg 10 mg, Oral, NIGHTLY, | | 18 8:29 | | | | | First dose on 08/31/17 at 2100 | | PM PDT | | | | + +-------+ +-------+---+---+ +-------+ +-------+---+---+ | Given | 09/08/19 | 10 mg | | | | | 18 8:18 | | | | | | PM PDT | | | | +-------+ +-------+---+---+ | Given | 09/07/19 | 10 mg | | | | | 18 8:32 | | | | | | PM PDT | | | | +-------+ +-------+---+---+ +---+---+ | | | +---+---+ + +-------+ +--------+---+---+ | azithromycin (ZITHROMAX) tablet | Given | 09/09/19 | 250 mg | | | | 250 mg 250 mg, Oral, DAILY, | | 18 8:47 | | | | | First dose on Thu09/05/17 at | | AM PDT | | | | | 0900, For 4 days, Indications: | | | | | | | Community Acquired Pneumonia | | | | | | + +-------+ +--------+---+---+ +-------+ +--------+---+---+ | Given | 09/08/19 | 250 mg | | | | | 18 8:06 | | | | | | AM PDT | | | | +-------+ +--------+---+---+ | Given | 09/07/19 | 250 mg | | | | | 18 8:24 | | | | | | AM PDT | | | | +-------+ +--------+---+---+ +---+---+ | | | +---+---+ + +-------+ +--------+---+---+ | azithromycin (ZITHROMAX) tablet | Given | 09/05/19 | 500 mg | | | | 500 mg 500 mg, Oral, ONCE, Fri | | 18 10:49 | | | | | 09/04/17 at 1030, For 1 dose, | | AM PDT | | | | | Indications: Community Acquired | | | | | | | Pneumonia | | | | | | + +-------+ +--------+---+---+ +---+---+ | | | +---+---+ + +-------+ + +---+---+ | bacitracin topical ointment | Given | 09/10/19 | 1 | | | | Topical, 2 TIMES DAILY, First | | 18 8:48 | Applicat | | | | dose on Thu09/04/17 at 2100, To | | AM PDT | ion | | | | earlobe, | | | | | | + +-------+ + +---+---+ +-------+ + +---+---+ | Given | 09/09/19 | 1 | | | | | 18 8:34 | Applicat | | | | | PM PDT | ion | | | +-------+ + +---+---+ | Given | 09/09/19 | 1 | | | | | 18 8:47 | Applicat | | | | | AM PDT | ion | | | +-------+ + +---+---+ +---+---+ | | | +---+---+ + +-------+ +--------+---+---+ | benzonatate (TESSALON) capsule | Given | 09/10/19 | 100 mg | | | | 100 mg 100 mg, Oral, 3 TIMES | | 18 1:51 | | | | | DAILY, First dose on Thu09/04/17 | | PM PDT | | | | | at 1030, Swallow capsule whole. | | | | | | | Do not chew or crush., | | | | | | + +-------+ +--------+---+---+ +-------+ +--------+---+---+ | Given | 09/10/19 | 100 mg | | | | | 18 8:48 | | | | | | AM PDT | | | | +-------+ +--------+---+---+ | Given | 09/09/19 | 100 mg | | | | | 18 8:29 | | | | | | PM PDT | | | | +-------+ +--------+---+---+ +---+---+ | | | +---+---+ + +-------+ +-------+---+---+ | dextromethorphan (DELSYM) 30 | Given | 09/04/19 | 30 mg | | | | mg/5 mL ER suspension 30 mg 30 | | 18 5:35 | | | | | mg, Oral, 2 TIMES DAILY BEFORE | | PM PDT | | | | | MEALS, First dose (after last | | | | | | | modification) on [facility] 09/03/17 at | | | | | | | 1715, First dose now please, | | | | | | + +-------+ +-------+---+---+ +---+---+ | | | +---+---+ + +-------+ +--------+---+---+ | docusate sodium (COLACE) | Given | 09/10/19 | 100 mg | | | | capsule 100 mg 100 mg, Oral, 2 | | 18 8:48 | | | | | TIMES DAILY, First dose on Mon | | AM PDT | | | | | 08/31/17 at 2100, Hold for loose | | | | | | | stools, | | | | | | + +-------+ +--------+---+---+ +-------+ +--------+---+---+ | Given | 09/09/19 | 100 mg | | | | | 18 8:30 | | | | | | PM PDT | | | | +-------+ +--------+---+---+ | Given | 09/09/19 | 100 mg | | | | | 18 8:46 | | | | | | AM PDT | | | | +-------+ +--------+---+---+ +---+---+ | | | +---+---+ + +-------+ +-------+---+---+ | donepezil (ARICEPT) tablet 10 | Given | 09/09/19 | 10 mg | | | | mg 10 mg, Oral, NIGHTLY, First | | 18 8:29 | | | | | dose (after last modification) on | | PM PDT | | | | | 08/31/17 at 2100 | | | | | | + +-------+ +-------+---+---+ +-------+ +-------+---+---+ | Given | 09/08/19 | 10 mg | | | | | 18 8:18 | | | | | | PM PDT | | | | +-------+ +-------+---+---+ | Given | 09/07/19 | 10 mg | | | | | 18 8:32 | | | | | | PM PDT | | | | +-------+ +-------+---+---+ +---+---+ | | | +---+---+ + +-------+ +-------+---+ + | enoxaparin (LOVENOX) 40 mg/0.4 | Given | 09/10/19 | 40 mg | | Abdomen- | | mL injection 40 mg 40 mg, | | 18 8:48 | | | LLQ | | Subcutaneous, EVERY 24 HOURS | | AM PDT | | | | | (Daily), First dose on Mon | | | | | | | 08/31/17 at 1515 | | | | | | + +-------+ +-------+---+ + +-------+ +-------+---+ + | Given | 09/09/19 | 40 mg | | Abdomen- | | | 18 8:47 | | | RLQ | | | AM PDT | | | | +-------+ +-------+---+ + | Given | 09/08/19 | 40 mg | | Abdomen- | | | 18 8:06 | | | LLQ | | | AM PDT | | | | +-------+ +-------+---+ + +---+---+ | | | +---+---+ + +-------+ +--------+---+---+ | gabapentin (NEURONTIN) capsule | Given | 09/09/19 | 600 mg | | | | 600 mg 600 mg, Oral, NIGHTLY, | | 18 8:30 | | | | | First dose (after last | | PM PDT | | | | | modification) on Thu09/08/17 at | | | | | | | 2100 | | | | | | + +-------+ +--------+---+---+ +---+---+ | | | +---+---+ + +-------+ +--------+---+---+ | gabapentin (NEURONTIN) capsule | Given | 09/08/19 | 800 mg | | | | 800 mg 800 mg, Oral, NIGHTLY, | | 18 8:18 | | | | | First dose on Thu08/31/17 at 2100 | | PM PDT | | | | + +-------+ +--------+---+---+ +-------+ +--------+---+---+ | Given | 09/07/19 | 800 mg | | | | | 18 8:32 | | | | | | PM PDT | | | | +-------+ +--------+---+---+ | Given | 09/06/19 | 800 mg | | | | | 18 8:47 | | | | | | PM PDT | | | | +-------+ +--------+---+---+ +---+---+ | | | +---+---+ + +-------+ +--------+---+---+ | guaiFENesin (ROBITUSSIN) 100 | Given | 09/07/19 | 200 mg | | | | mg/5 mL liquid 200 mg 200 mg, | | 18 8:36 | | | | | Oral, EVERY 4 HOURS PRN, Cough, | | PM PDT | | | | | Starting 08/31/17 at 1458 | | | | | | + +-------+ +--------+---+---+ +-------+ +--------+---+---+ | Given | 09/07/19 | 200 mg | | | | | 18 10:10 | | | | | | AM PDT | | | | +-------+ +--------+---+---+ | Given | 09/06/19 | 200 mg | | | | | 18 12:19 | | | | | | PM PDT | | | | +-------+ +--------+---+---+ +---+---+ | | | +---+---+ + +-------+ +---------+---+---+ | levothyroxine (SYNTHROID) | Given | 09/10/19 | 175 mcg | | | | tablet 175 mcg 175 mcg, Oral, | | 18 8:48 | | | | | DAILY, First dose (after last | | AM PDT | | | | | modification) on Thu09/01/17 at | | | | | | | 0900, Give before breakfast., | | | | | | + +-------+ +---------+---+---+ +-------+ +---------+---+---+ | Given | 09/09/19 | 175 mcg | | | | | 18 8:46 | | | | | | AM PDT | | | | +-------+ +---------+---+---+ | Given | 09/08/19 | 175 mcg | | | | | 18 8:06 | | | | | | AM PDT | | | | +-------+ +---------+---+---+ + +---+ | | | + +---+ | losartan (COZAAR) tablet 25 mg | | | 25 mg, Oral, DAILY, First dose | | | (after last modification) on Jennifer | | | 09/10/17 at 0900, hold for systolic | | | blood pressure under 125, | | + +---+ | | | + +---+ + +-------+ +-------+---+---+ | losartan (COZAAR) tablet 50 mg | Given | 09/07/19 | 50 mg | | | | 50 mg, Oral, 2 TIMES DAILY NOT | | 18 8:23 | | | | | ATC, First dose on Thu08/31/17 at | | AM PDT | | | | | 1600, hold for systolic blood | | | | | | | pressure under 125, | | | | | | + +-------+ +-------+---+---+ +-------+ +-------+---+---+ | Given | 09/05/19 | 50 mg | | | | | 18 4:35 | | | | | | PM PDT | | | | +-------+ +-------+---+---+ | Given | 09/03/19 | 50 mg | | | | | 18 8:21 | | | | | | AM PDT | | | | +-------+ +-------+---+---+ +---+---+ | | | +---+---+ + +-------+ +---------+---+ + | pneumococcal (PREVNAR 13) | Given | 09/02/19 | 0.5 mLs | | Deltoid- | | vaccine injection 0.5 mL 0.5 mL, | | 18 12:29 | | | Left | | Intramuscular, ONE TIME VACCINE, | | PM PDT | | | | | 09/01/17 at 0900, For 1 dose, | | | | | | | Keep in refrigerator. Give | | | | | | | patient education information., | | | | | | + +-------+ +---------+---+ + +---+---+ | | | +---+---+ + +-------+ +--------+---+---+ | senna (SENOKOT) tablet 8.6 mg | Given | 09/01/19 | 8.6 mg | | | | 8.6 mg, Oral, 2 TIMES DAILY PRN, | | 18 10:21 | | | | | Constipation, Starting Mon | | PM PDT | | | | | 08/31/17 at 1454, If docusate | | | | | | | ineffective or not ordered, give | | | | | | | BID until BM, then PRN. Hold for | | | | | | | loose stools, | | | | | | + +-------+ +--------+---+---+ +---+---+ | | | +---+---+ + +-------+ +--------+---+---+ | tamsulosin (FLOMAX) capsule 0.4 | Given | 09/09/19 | 0.4 mg | | | | mg 0.4 mg, Oral, NIGHTLY, First | | 18 8:29 | | | | | dose on 08/31/17 at 2100, September | | PM PDT | | | | | open capsule and sprinkle over | | | | | | | acidic soft food (applesauce, | | | | | | | yogurt) or in a small quantity of | | | | | | | acidic fruit juice (orange, | | | | | | | grape). Do not crush, chew or | | | | | | | dissolve granules., | | | | | | + +-------+ +--------+---+---+ +-------+ +--------+---+---+ | Given | 09/08/19 | 0.4 mg | | | | | 18 8:19 | | | | | | PM PDT | | | | +-------+ +--------+---+---+ | Given | 09/07/19 | 0.4 mg | | | | | 18 8:32 | | | | | | PM PDT | | | | +-------+ +--------+---+---+ + +---+ | | | + +---+ | tamsulosin (FLOMAX) capsule 0.4 | | | mg 0.4 mg, Oral, DAILY AFTER | | | DINNER, First dose (after last | | | modification) on Thu09/09/17 at | | | 1800, May open capsule and | | | sprinkle over acidic soft food | | | (applesauce, yogurt) or in a | | | small quantity of acidic fruit | | | juice (orange, grape). Do not | | | crush, chew or dissolve | | | granules., | | + +---+ | | | + +---+ + +-------+ +------+---+---+ | zolpidem (AMBIEN) tablet 5 mg | Given | 09/09/19 | 5 mg | | | | 5 mg, Oral, NIGHTLY PRN, | | 18 8:38 | | | | | Insomnia, Starting 08/31/17 at | | PM PDT | | | | | 1454, Caution: Medications may | | | | | | | pose a fall risk, | | | | | | + +-------+ +------+---+---+ +-------+ +------+---+---+ | Given | 09/07/19 | 5 mg | | | | | 18 8:37 | | | | | | PM PDT | | | | +-------+ +------+---+---+ | Given | 09/06/19 | 5 mg | | | | | 18 8:47 | | | | | | PM PDT | | | | +-------+ +------+---+---+ +---+---+ | | | +---+---+ documented in this encounter
--- OUTSIDE RECORDS SUMMARY | ~2019-11-10 | XMS | Encounter Summary ---
Demographics + + + | Address | [address] | | | [place] [address] | + + + | Home Phone | | + + + | Preferred Language | Unknown | + + + | Marital Status | | + + + | Anglican Affiliation | 1028 | + + + | Race | Unknown | + + + | Ethnic Group | Unknown | + + + Author + + + | Author | [facility] | | | and [place] | + + + | Organization | [facility] | | | and [...] [place], [place] | | | | | [address] | | + + + + + | Chloe Malik | ECON | [place], [place] | | | | | [address] | | + + + + + | Ivett Ingram | ECON | Unknown | | + + + + + | Mj Cabrera | ECON | Unknown | | + + + + + | Jessa Cabrera | ECON | [address] | | | | | [place], [place] | | | | | [address] | | + + + + + Care Team Providers + +------+ + | Care Costume Cutter Name | Role | Phone | + +------+ + | Josr Henriquez | PCP | | | MD | | | + +------+ + Reason for Visit + + + | Reason | Comments | + + + | Follow-up | post caudal injection on 08/15/14 | + + + | Back Pain | low back with a "swelling feeling" in bilateral feet | + + + Encounter Details +--------+---------+ + + + | Date | Type | Department | Care Team | Description | +--------+---------+ + + + | 09/18/ | Office | [facility] | [place], | Sacroiliitis, not | | 2014 | Visit | PHYSIATRY [address] | [address] | elsewhere classified | | | | [address] | [address] | ([facility]) (Primary Dx); | | | | [place], [place] | [place] [address] | Chronic low back | | | | [address] | [phone] | pain; DDD | | | | [phone] | | (degenerative disc | | | | | | disease), lumbar; | | | | | | S/P lumbar fusion | +--------+---------+ + + + Social History + +-------+ [...] + + + | Blood Pressure | 107/59 | 09/18/2014 11:35 AM | | | | | PDT | | + + + + + | Pulse | 73 | 09/18/2014 11:35 AM | | | | | PDT | | + + + + + | Temperature | - | - | | + + + + + | Respiratory Rate | - | - | | + + + + + | Oxygen Saturation | - | - | | + + + + + | Inhaled Oxygen | - | - | | | Concentration | | | | + + + + + | Weight | 81.6 kg (180 lb) | 09/18/2014 11:35 AM | | | | | PDT | | + + + + + | Height | 177.8 cm (5' 10") | 09/18/2014 11:35 AM | | | | | PDT | | + + + + + | Body Mass Index | 25.83 | 09/18/2014 11:35 AM | | | | | PDT | | + + + + + documented in this encounter Patient Instructions Patient Instructions Dixie Ballesteros PA-C - 09/18/2014 12:07 PM PDT Follow-up at the hospital thirty minutes before your scheduled procedure to allow for time to check in. You may eat and drink as usual on the day of the procedure. If you are scheduled for an epidural injection do not take any blood thinning medications f or at least 5-7 days prior to your procedure unless you have been instructed by another phys ician not to discontinue blood thinning medications. If you are having a procedure other than an epidural injection (i.e. facet injection, media l branch block, SI joint injection or other joint injection) it is not absolutely necessary to discontinue blood thinning medications but doing so will decrease the risk of bruising or bleeding. If you have had a prior stroke, DVT or PE or if you are taking blood thinning medication be cause you have atrial fibrillation, a prosthetic cardiac valve replacement or heart stenting do not stop taking your blood thinning medications unless you have permission from your car diologist or primary care provider. All other medications should be taken as usual on the day of the procedure. Common blood thinning medications include: Aspirin (a baby aspirin is o.k.) Ibuprofen (Advil or Motrin) Naproxen (Aleve) Nabumetone (Relafen) Clopidogrel (Plavix) Dipyridamole/ASA (Aggrenox) Warfarin (Coumadin) Dabigatran (Pradaxa) Rivaroxaban (Xarelto) There are many others. If you have questions about your medications and whether or not you should stop any medications please contact our office. If you are having an epidural injection or if you take any medication for relaxation/sedati on on the day of the procedure you must provide a chain saw driver to take you home. For all procedur es it is recommended that someone else drive you home. documented in this encounter Progress Notes Dixie Ballesteros PA-C - 09/18/2014 12:14 PM PDTFormatting of this note might be differe nt from the original. CHIEF COMPLAINT: Chief Complaint Patient presents with Follow-up post caudal injection on 08/15/14 Back Pain low back with a "swelling feeling" in bilateral feet HISTORY OF PRESENT ILLNESS: The patient is a 79 y.o. male being seen today for follow up o f low back, buttock pain as well as foot and leg pain that began many years ago. He has an extensive history of chronic back problems and that he had a work related injury many years ago and he has since had 11 lumbar spine surgeries. The patient has been seen for this com plaint in the past, with initial visit started by Dr. Granger. Previously it was recomme nded that he receive a caudal steroid injection, he received this 08/15/2014 and reports minim al relief. He however has been able to go out and mow the lawn and do things he has not bee n able to previously do. Since the symptoms began, he has noticed that symptoms have been staying the same. He descr ibes the pain as a constant aching 5/10 feeling. He rates the pain as moderate. His symptoms worsen with bending over, lifting, twisting, prolonged walking. His symptoms improve with nothing in particular other than the steroid injections as above. He also takes Aleve which may help a little. He takes gabapentin but only at night. He does have burning in both feet which is fairly constant. The patient does describe numb ness or abnormal sensation of both feet. He does report weakness of the legs and reports b alance issues. He does not have bowel and bladder dysfunction. He does not have saddle an esthesia. Treatments for these complaints have included prior caudal epidural steroid injections, phy sical therapy and a TENS unit which did not help much. He has also tried multiple medicatio ns and the 11 lumbar surgeries as above. Patient's medications, allergies, past medical, surgical, social and family histories were reviewed and updated as appropriate. CURRENT MEDICATIONS: Current Outpatient Prescriptions Medication Sig Dispense Refill aspirin (ASPIRIN LOW DOSE) 81 MG EC tablet Take 81 mg by mouth Daily. cabergoline (DOSTINEX) 0.5 mg tablet donepezil (ARICEPT) 5 mg tablet Take 5 mg by mouth nightly. fesoterodine fumarate (TOVIAZ) 8 MG TB24 ER tablet Take 8 mg by mouth Daily. gabapentin (NEURONTIN) 300 mg capsule Take 1 capsule by mouth 3 times daily. 90 capsule 2 HYDROcodone-acetaminophen (NORCO) 10-325 mg per tablet Take 10-325 mg by mouth as neede d. levothyroxine (LEVOTHROID) 137 MCG tablet Take 137 mcg by mouth Daily. losartan-hydrochlorothiazide (HYZAAR) 100-25 MG per tablet Take 100-25 mg by mouth Douglas y. Naproxen Sodium (ALEVE) 220 MG CAPS Take 220 mg by mouth 2 times daily. testosterone cypionate (DEPO-TESTOSTERONE) 200 mg/mL injection 200mg IM every 2 weeks No current facility-administered medications for this visit. ALLERGIES: Allergies Allergen Reactions Cyclobenzaprine Fentanyl Fluoxetine Morphine Sulfate Oxycodone REVIEW OF SYSTEMS: A multisystem review of system checklist was reviewed with the patient and shows only the p ain and/or parasthesias and other complaints as in HPI. All remaining review of systems was negative. PHYSICAL EXAMINATION: Filed Vitals: 09/18/14 1135 BP: 107/59 Pulse: 73 PainSc: 5 PainLoc: Back Body mass index is 25.83 kg/(m^2). GENERAL: The patient is well developed and well nourished. He does not appear uncomfortabl e when seated. HEENT: HEAD/FACE: EYES: Normocephalic and atraumatic. There are no areas of recent trauma. Normal sclerae without icterus. SKIN Limited skin exam shows no significant rashes or lesions. There are scars in the lumb ar region. CHEST: The patient is in no acute respiratory distress with unlabored respirations. HEART: There is not lower extremity edema. ABDOMEN: The patient is not obese. NEUROLOGIC: The patient is awake, alert, and oriented to time, place, person. He follows simple and complex commands. His speech is fluent. He comprehends speech well. He has no apparent deficits with short or electrical machinist memory. He has appropriate fund of knowledge Cranial nerves 2-12 appear grossly intact. Sensory exam does not show diminished sensation to light touch in the upper and lower extr emities. REFLEX: RIGHT LEFT PATELLAR 2+ 2+ ACHILLES 2+ 2+ PLANTAR Downgoing Downgoing MUSCULOSKELETAL There is no major palpable deformity of the spine. Straight leg raise and slump-sit are negative. Tejas's maneuver and impingement testing were negative for any groin pain. There was no tenderness to palpation over the greater tr ochanters. There was tenderness to the sacral sulci. The patient localized the majority of the pain to the SI joints bilaterally. Lumbar facet loading was negative but hard to asses s given his stiffness. Strength testing showed 5/5 strength throughout the lower extremitie s. The patient was able to heel and toe walk but with some difficulty due to balance issues . There was no redness, effusion, warmth or joint line tenderness in the knees or ankles. RADIOGRAPHIC REVIEW: The patient's imaging was reviewed in detail with the patient today during the visit. The images show evidence of multiple prior surgeries resulting in apparent fusion of the lumbar spine from L5-S1. There is hardware only in the L1-L2 intervertebral space. There is clump ing of the nerve roots primarily at L4-L5 consistent with chronic adhesive arachnoiditis. ASSESSMENT: 1. Sacroiliitis, not elsewhere classified 2. Chronic low back pain 3. DDD (degenerative disc disease), lumbar 4. S/P lumbar fusion PLAN: 1. The patients pain is likely multi-factorial. He reports minimal relief with the caudal steroid injection, but her indicates the patient has been more active since having this injection. He continues to remain tender to the bilateral SI joints and so I have agreed t o try steroid injections to these joints. 2. We discussed failed back syndrome, chronic radiculopathy and arachnoiditis. We discuss ed spinal cord stimulator trail as another potential option in the future if nothing else is helping. 3. Medications have been reviewed at today's visit with no changes made at this time. He i s taking 300mg gabapentin TID along with Aleve morning and noontime. ELECTRONICALLY EDITED AND SIGNED BY: Dixie Ballesteros PA-C, 09/18/2014 SUPERVISING PHYSICIAN: William Granger MD, who was present in the clinic today documented in t his encounter Plan of Treatment Not on filedocumented as of this encounter Results [place] Sacroiliac Injection Right (10/10/2014 3:54 PM PDT) + + | Specimen | + + | | + + + + + | Narrative | Performed At | + + + | 10/10/2014 Bilateral Sacroiliac Joint Injection Clinical History: | [facility] | | Sacroiliitis ICD-9 720.0 Dennis Cabrera presents to the | [facility] | | fluoroscopy suite for fluoroscopically guided bilateral sacroiliac [facility] | | joint steroid injections as part of conservative management for | - IMAGING | | chronic pain with sacroiliitis. After informed consent was obtained | | | the patient laid in the prone position on the fluoroscopy table. The | | | bilateral sacroiliac joints were identified under fluoroscopic | | | guidance. The areas were prepped and draped in sterile fashion. A 25 | | | gauge 1-1/2 inch needle was inserted into each region and | | | approximately 3 mL of buffered 1% lidocaine was infused. Then a 22 | | | gauge spinal needle was inserted into the inferior joint spaces | | | under fluoroscopic guidance. Confirmation into the sacroiliac joints | | | obtained with infusion of approximately 1 mL of Omnipaque contrast | | | which showed flow within the joint spaces. Then a combination of 2 | | | mL 1% lidocaine and 2 mL of 40 mg per milliliter Kenalog was | | | infused divided between the two sides. The patient tolerated the | | | procedure well without complications. Pre- and post procedure blood | | | pressures were stable. The patient was given verbal as well as | | | written followup instructions. Prior to the start of the | | | procedure the following were performed and verified including | | | correct patient identity, correct site/side marked and visible, | | | agreement of the procedure to be done, correct patient positioning | | | and an accurate procedure consent form. Any safety precautions based | | | on clinical history and/or medications have been addressed. I | | | personally performed the procedure above. Estimated blood loss: | | | Minimal Complications: None Findings: As expected Anesthesia: | | | Local 1% Lidocaine | | + + + + + + + + | Performing | Address | City/State/Zipcode | Phone Number | | Organization | | | | + + + + + | [facility] | [address] | [place], [place] | [phone] | | [facility] | | [id number] | | | - IMAGING | | | | + + + + + FL Sacroiliac Injection Left (10/10/2014 3:54 PM PDT) + + | Specimen | + + | | + + + + + | Narrative | Performed At | + + + | 10/10/2014 Bilateral Sacroiliac Joint Injection Clinical History: | [facility] | | Sacroiliitis ICD-9 720.0 Dennis Cabrera presents to the | [facility] | | fluoroscopy suite for fluoroscopically guided bilateral sacroiliac [facility] | | joint steroid injections as part of conservative management for | - IMAGING | | chronic pain with sacroiliitis. After informed consent was obtained | | | the patient laid in the prone position on the fluoroscopy table. The | | | bilateral sacroiliac joints were identified under fluoroscopic | | | guidance. The areas were prepped and draped in sterile fashion. A 25 | | | gauge 1-1/2 inch needle was inserted into each region and | | | approximately 3 mL of buffered 1% lidocaine was infused. Then a 22 | | | gauge spinal needle was inserted into the inferior joint spaces | | | under fluoroscopic guidance. Confirmation into the sacroiliac joints | | | obtained with infusion of approximately 1 mL of Omnipaque contrast | | | which showed flow within the joint spaces. Then a combination of 2 | | | mL 1% lidocaine and 2 mL of 40 mg per milliliter Kenalog was | | | infused divided between the two sides. The patient tolerated the | | | procedure well without complications. Pre- and post procedure blood | | | pressures were stable. The patient was given verbal as well as | | | written followup instructions. Prior to the start of the | | | procedure the following were performed and verified including | | | correct patient identity, correct site/side marked and visible, | | | agreement of the procedure to be done, correct patient positioning | | | and an accurate procedure consent form. Any safety precautions based | | | on clinical history and/or medications have been addressed. I | | | personally performed the procedure above. Estimated blood loss: | | | Minimal Complications: None Findings: As expected Anesthesia: | | | Local 1% Lidocaine | | + + + + + + + + | Performing | Address | City/State/[facility] | Phone Number | | Organization | | | | + + + + + | [facility] | [address] | [place] | [phone] | | [facility] | | [id number] | | | - IMAGING | | | | + + + + + documented in this encounter Visit Diagnoses + + | Diagnosis | + + | Sacroiliitis, not elsewhere classified (HCC) - Primary Sacroiliitis, not elsewhere | | classified | + + | Chronic low back pain Lumbago | + + | DDD (degenerative disc disease), lumbar Degeneration of lumbar or lumbosacral | | intervertebral disc | + + | S/P lumbar fusion Arthrodesis status | + + documented in this encounter
--- OUTSIDE RECORDS SUMMARY | ~2019-11-10 | XMS | Encounter Summary ---
Demographics + + + | Address | [address] | | | [place] [address] | + + + | Home Phone | | + + + | Preferred Language | Unknown | + + + | Marital Status | | + + + | Jehovah'S Witness Affiliation | 1028 | + + + | Race | Unknown | + + + | Ethnic Group | Unknown | + + + Author + + + | Author | [facility] | | | and [place] | + + + | Organization | [facility] | | | [...] [place], [place] | | | | | [address] | | + + + + + | Chloe Malik | ECON | [place], [place] | | | | | [address] | | + + + + + | Ivett Ingram | ECON | Unknown | | + + + + + | Mj Cabrera | ECON | Unknown | | + + + + + | Jessa Cabrera | ECON | [address] | | | | | [place], [place] | | | | | [address] | | + + + + + Care Team Providers + +------+ + | Care Commission Agent Livestock Name | Role | Phone | + +------+ + PCP | Unavailable | + +------+ + Encounter Details +--------+ + + + + | Date | Type | Department | Care Team | Description | +--------+ + + + + | 09/03/ | Hospital | [facility] | Rivas Stevens MD | Syncope; Near | | 2011 - | Encounter | [facility] | [address] | syncope; Renal | | | | CARE FLOOR [address] | [place] [address] | insufficiency; | | 09/05/ | | [address] | [phone] | Syncope and | | 2011 | | [place] | | collapse; | | | | [address] | | Rhabdomyolysis | | | | [phone] | | | +--------+ + + + [...] + + documented as of this encounter Discharge Summaries Cherelle Jansen MD - 09/06/2011 9:59 AM PDTFormatting of this note might be different fr om the original. Discharge Summaries by Cherelle Jansen MD at 09/06/11 0959 Author: Cherelle Jansen MD Service: (none) Author Type: Physician Filed: 09/06/11 1111 Date of Service: 09/06/11 0959 Status: Signed Rock Dust Sprayer: Cherelle Jansen MD (Physician) [facility] Service: Hospitalist Discharge Summary Date of Admission: 09/04/2011 Date of Discharge: 09/06/11 Discharge Physician: CHERELLE JANSEN MD Discharge Diagnoses: Principal Problem: *Syncope and collapse Active Problems: Rhabdomyolysis ARF (acute renal failure) Male hypogonadism Unspecified hypothyroidism Adrenal adenoma HTN (hypertension) Orthostatic hypotension GERD (gastroesophageal reflux disease) Anemia iron def Resolved Problems: * No resolved hospital problems. * Procedures: * No surgery found * Significant Diagnostic Studies: Patient Name: JOSEPH CABRERA 09/05/11 Date of : 1935 Performing Physician: Iggy Kirby MD INDICATIONS SYNCOPE/COLLAPSE TDS LABORED BREATHING CONCLUSIONS 1. This was a technically difficult study with suboptimal views. 2. Overall left ventricular systolic function is normal with, an EF between 55 - 60 %. 3. Aortic valve is mildly thickened. 4. Qidk-pq-xuotcewq mitral regurgitation is present. Ultrasound renal [[id number]] Order Status: Completed Resulted: 09/05/11 0516 Narrative: IMPRESSION: 1. Kidneys appear normal aside from bilateral renal cysts. 2. Bladder is empty with a Trejo catheter in place. Read by Ramses Muhammad MD on Sep 05 2011 5:16AM CT Head Non-Con [[id number]] Order Status: Completed Resulted: 09/04/11 2217 Narrative: IMPRESSION: 1. Atrophy and small vessel disease. 2. 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 Read by Ramses Muhammad MD on Sep 04 2011 10:17PM Procedure Component Value Units Flag Date/Time Occult blood screen [[id number]] Collection: 09/05/11 1518 Order Status: Completed Resul jqaueline: 09/05/11 1548 Specimen Type: Stool Fecal Occult Blood NEGATIVE BRIEF HISTORY OF PRESENTATION: Joseph Cabrera is a 76 y.o. male with ,multiple medical problems ,please see PMHx section, who presents from [facility] ED after having abnormal labs in drawn by his PCP today. Pt states that that his "kidney function was not right", and he was sent to the ED t here. Pt states that he was working outside over the past two days, and was exerting himself while mowing the lawn. The patient complains of chronic fatigue, and has been hypotensive s may. Pt had near syncopal episodes both last night and this morning, and both times his BP was in the 70's systolic. Pt has been having similar episodes for the past few month s and reported to his PCP which according to patient didn't do anything about it,he had a ne gative Cardiac stress test at [facility] per his a month ago for pre-op for a n elective surgery,he denies hitting his head when he LOC but he did hit his lip on the couc h,the witnessed it and didn't see an abnormal jerking or movements,he says he usually d oesn't drink a lot of water and as far as he knows he had normal kidney function last month, he also has hx of hypothyroid and hypogonadism,and a known adrenal nodule, he is compliant w ith his medications, No headache or blurry vision and he is in NSR on tele HOSPITAL COURSE: Pt did well on the floor. No problems as far as dizziness, or headaches, CP or SOB, naus ea vomiting. Pt di dwell in his PT evaluation and was deemed safe to go home .CT head negati ve. Telemetry negative. Cardiac enzymes negative. Renal failure completely resolved. BP impr nichole stable. CPKs trending down. 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 cabergoline (DOSTINEX) 0.5 MG tablet Take 0.25 mg by mouth twice a week. citalopram (CELEXA) 40 MG tablet Take 40 mg by mouth daily. EO-Aqajaoidfa-Pdgcbbpqmpbjup (FOLBIC) 2.5-25-2 MG TABS Take 1 tablet by mouth daily. fish oil-omega-3 fatty acids 1000 MG capsule Take 2 g by mouth daily. hydrocodone-acetaminophen (NORCO) 10-325 MG per tablet Take 1-2 tablets by mouth every 6 (six) hours as needed. levothyroxine (SYNTHROID, LEVOTHROID) 137 MCG tablet Take 137 mcg by mouth daily. losartan-hydrochlorothiazide (HYZAAR) 100-25 MG per tablet Take 0.5 tablets by mouth da connie. omeprazole (PRILOSEC) 40 MG capsule Take 80 mg by mouth 2 (two) times daily. testosterone cypionate (DEPO-TESTOSTERONE) 200 MG/ML injection Inject 200 mg into the m uscle every 14 (fourteen) days. DISCONTD: tizanidine (ZANAFLEX) 4 MG tablet Take 4 mg by mouth every 6 (six) hours as n eeded. DISCHARGE EXAM Vital Signs: BP 108/59 | Pulse 75 | Temp(Src) 97.5 F (36.4 C) (Oral) | Resp 18 | Ht 1.803 m (5' 11") | Wt 79.6 kg (175 lb 7.8 oz) | BMI 24.48 kg/m2 | SpO2 94% Temp: [97.5 F (36.4 C)-98.5 F (36.9 C)] 97.5 F (36.4 C) (09/05 737) BP: (108-167)/(59-94) 108/59 mmHg (09/05 737) Heart Rate: [69-87] 75 (09/05 737) Resp: [18-19] 18 (09/05 737) SpO2: [94 %-96 %] 94 % (04/28 0738) Weight: [79.6 kg (175 lb 7.8 oz)] 79.6 kg (175 lb 7.8 oz) (09/05 041) Physical Exam General appearance: alert, appears stated age and cooperative Head: Normocephalic, without obvious abnormality, atraumatic Neck: no adenopathy, no carotid bruit, no JVD, supple, symmetrical, trachea midline and thy roid not enlarged, symmetric, no tenderness/mass/nodules Back: no tenderness to percussion or palpation Lungs: clear to auscultation bilaterally Heart: regular rate and rhythm, S1, S2 normal, no murmur, click, rub or gallop Abdomen: soft, non-tender; bowel sounds normal; no masses, no organomegaly Extremities: extremities normal, atraumatic, no cyanosis or edema, 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 Pulses: 2+ and symmetric Neurologic: Grossly normal DATA CBC: Lab Results Component Value Date WBC 4.4 09/06/2011 RBC 3.34* 09/06/2011 HGB 9.8* 09/06/2011 HCT 30.4* 09/06/2011 MCV 90.9 09/06/2011 MCH 29.4 09/06/2011 MCHC 32.3 09/06/2011 RDW 59.1* 09/06/2011 PLT 170 09/06/2011 MPV 9.1 09/06/2011 DIFFTYPE AUTOMATED 09/06/2011 CMP: Lab Results Component Value Date NA 142 09/06/2011 K 4.1 09/06/2011 CL 107 09/06/2011 CO2 26 09/06/2011 ANIONGAP 13 09/06/2011 GLUF 80 09/06/2011 BUN 11 09/06/2011 CREATININE 1.4 09/06/2011 BCR 8 09/06/2011 CA 8.1* 09/06/2011 PROT 5.9* 09/06/2011 ALB 3.2* 09/06/2011 GLOB 2.7 09/06/2011 BILITOT 0.5 09/06/2011 ALP 40 09/06/2011 AST 67* 09/06/2011 ALT 27 09/06/2011 EGFR 52* 09/06/2011 Troponin: Lab Results Component Value Date TROPONINI 0.03 09/05/2011 Last 3 Troponin: Lab Results Component Value Date TROPONINI 0.03 09/05/2011 TROPONINI 0.03 09/05/2011 TROPONINI 0.02 09/04/2011 CPK: Lab Results Component Value Date CKTOTAL 708* 09/06/2011 CKMB: Lab Results Component Value Date CKMB 14.8* 09/05/2011 Troponin I: Lab Results Component Value Date TROPONINI 0.03 09/05/2011 U/A: Lab Results Component Value Date COLORU YELLOW 09/04/2011 CLARITYU CLEAR 09/04/2011 NITRITE NEGATIVE 09/04/2011 UROBILINOGEN 0.2 09/04/2011 PHUR 5.0 09/04/2011 BILIRUBINUR NEGATIVE 09/04/2011 TSH: Lab Results Component Value Date TSH 0.89 09/06/2011 IRON: Lab Results Component Value Date IRON 33* 09/06/2011 TIBC: Lab Results Component Value Date IRON 33* 09/06/2011 TIBC 321.53 09/06/2011 LABIRON 10* 09/06/2011 PLAN Patient Active Hospital Problem List: Presyncope (09/04/2011) Assessment:due to dehydration and acute renal failure from dehydration and BP meds, now r esolved Plan: s/p hydration, cont PO good oral intake of water, f/u with PCP Rhabdomyolysis (09/04/2011) Assessment: CPK trending down Plan: f/u CPK in a week and see PCP ARF (acute renal failure) (09/04/2011 Assessment:due to dehydration, and ARB/diuretic on top of hte dehyddration, + rhabdomyoly sis Plan:resolved now Male hypogonadism (09/04/2011) Plandiscuss with PCP on testosterone HTN (hypertension) (09/04/2011) Assessment:stable Plan: cont home meds Anemia iron def (09/06/2011) Assessment: fecal occult bld negative Plan: cont iron supplement and discuss with PCP Disposition: Home Condition: Stable Code Status: DNR/DNI Discharge Instructions CK Standing Status: Future Standing Exp. Date: 09/05/12 Basic metabolic panel Standing Status: Future Standing Exp. Date: 09/05/12 Follow up: Aaron Beltran MD [phone] Make an appointment in 3 days Current Discharge Medication List CONTINUE these medications which have NOT CHANGED Details aspirin 81 MG tablet Take 81 mg by mouth daily. cabergoline (DOSTINEX) 0.5 MG tablet Take 0.25 mg by mouth twice a week. citalopram (CELEXA) 40 MG tablet Take 40 mg by mouth daily. KP-Kmgndwnxjd-Hvakujagqueyss (FOLBIC) 2.5-25-2 MG TABS Take 1 tablet by mouth daily. fish oil-omega-3 fatty acids 1000 MG capsule Take 2 g by mouth daily. hydrocodone-acetaminophen (NORCO) 10-325 MG per tablet Take 1-2 tablets by mouth every 6 ( six) hours as needed. levothyroxine (SYNTHROID, LEVOTHROID) 137 MCG tablet Take 137 mcg by mouth daily. losartan-hydrochlorothiazide (HYZAAR) 100-25 MG per tablet Take 0.5 tablets by mouth daily . omeprazole (PRILOSEC) 40 MG capsule Take 80 mg by mouth 2 (two) times daily. testosterone cypionate (DEPO-TESTOSTERONE) 200 MG/ML injection Inject 200 mg into the musc le every 14 (fourteen) days. STOP taking these medications tizanidine (ZANAFLEX) 4 MG tablet Comments: Reason for Stopping: Discharge took 45 minutes, to include final examination, discussion of admission, and prepa ration of prescriptions, instructions for on-going care, follow-up and documentation of disc harge summary. CHERELLE JANSEN MD 09/06/2011 documented in this encounter Medications at Time of Discharge + + + +---------+ + + | Medication | Sig | Dispensed | Refills | Start | End Date | | | | | | Date | | + + + +---------+ + + | cabergoline | | | 0 | 07/10/19 | | | (DOSTINEX) 0.5 mg | | | | 12 | 8 | | tablet | | | | | | + + + +---------+ + + | | TABS one tablet by | | 0 | 07/10/19 | | | HU-Trvriifpgg-Keltkg | mouth daily | | | 12 | 5 | | balamin (FOLBIC PO) | | | | | | + + + +---------+ + + | metoclopramide | one tablet by mouth | | 0 | 07/10/19 | | | (REGLAN) 10 mg | before meals | | | 12 | 5 | | tablet | | | | | | + + + +---------+ + + | omeprazole | Two tablets two | | 0 | 07/10/19 | | | (PRILOSEC) 40 MG | times daily | | | 12 | 5 | | capsule | | | | | | + + + +---------+ + + | testosterone | 200mg IM every 2 | | 0 | 07/10/19 | | | cypionate | weeks | | | 12 | 8 | | (DEPO-TESTOSTERONE) | | | | | | | 200 mg/mL injection | | | | | | + + + +---------+ + + documented as of this encounter Progress Notes Conversion Transaction, Provider Unknown - 09/05/2011 2:01 PM PDTFormatting of this note m ight be different from the original. Progress Notes by Soto Bañuelos RN at 09/05/111400 Author: Soto Bañuelos RN Service: (none) Author Type: Quantitative Software Engineer Filed: 09/05/11 140 Date of Service: 09/05/111400 Status: Signed Rock Dust Sprayer: Soto Bañuelos RN (Quantitative Software Engineer) Discharge Plan: Return home with spouse, who will transport. No HH or DME needs for discharge. SOTO CROCKER RN Cherelle Jennings MD - 09/05/2011 1:35 PM PDT Progress Notes by Cherelle Jansen MD at 09/05/11 223 Author: Cherelle Jansen MD Service: (none) Author Type: Physician Filed: 09/05/11 1234 Date of Service: 09/05/111334 Status: Signed Rock Dust Sprayer: Cherelle Jansen MD (Physician) [facility] Service: Hospitalist Progress Note Hospital Day: LOS: 1 day Post-Op Day: * No surgery found * SUBJECTIVE Patient Summary: Pt admitted for weakness and acute renal failure.Per patient and wi fe today he did not lose consciousness, he just felt very weak. Events Overnight: Pt without any complaints today. Denies CP, SOB, dizzinesss. No dalila sea or vomiting or abdominal pain. Afebrile. Workup CT showing old small lacunar infarcts, telemetry uneventful, BP creeping up, CPK trending down, no hydronephrosis on renal US, EEG pending Echo 1. This was a technically difficult study with suboptimal views. 2. Overall left ventricular systolic function is normal with, an EF between 55 - 60 %. 3. Aortic valve is mildly thickened. 4. Bqdn-gk-enthykzh mitral regurgitation is present. Scheduled Medications aspirin 81 mg Oral Daily with breakfast cabergoline 0.25 mg Oral Twice Weekly citalopram 40 mg Oral Daily levothyroxine 25 mcg Oral QAM AC And levothyroxine 112 mcg Oral QAM AC lidocaine omeprazole 20 mg Oral QAM AC Or pantoprazole 40 mg Intravenous QAM AC sodium chloride 1,000 mL Intravenous Once DISCONTD: aspirin 81 mg Oral Daily DISCONTD: citalopram 40 mg Oral Daily DISCONTD: levothyroxine 137 mcg Oral Daily Continuous Infusions sodium chloride 200 mL/hr at 09/05/11 0440 DISCONTD: sodium chloride Stopped (09/04/11 2306) DISCONTD: sodium chloride 200 mL/hr at 09/04/11 2307 PRN Medications ondansetron, ondansetron, polyethylene glycol, zolpidem OBJECTIVE Vital Signs: BP 165/90 | Pulse 87 | Temp(Src) 98.5 F (36.9 C) (Oral) | Resp 19 | Ht 1.803 m (5' 11") | Wt 78.9 kg (173 lb 15.1 oz) | BMI 24.26 kg/m2 | SpO2 96% Temp: [98.1 F (36.7 C)-99.9 F (37.7 C)] 98.5 F (36.9 C) (09/04 0700) BP: (116-173)/(67-90) 165/90 mmHg (09/04 1256) Heart Rate: [72-88] 87 (09/04 1313) Resp: [16-20] 19 (09/04 0700) SpO2: [92 %-99 %] 96 % (09/04 1313) Height: [177.8 cm (5' 10")-180.3 cm (5' 11")] 180.3 cm (5' 11") (09/04 002) Weight: [78.9 kg (173 lb 15.1 oz)-83.054 kg (183 lb 1.6 oz)] 78.9 kg (173 lb 15.1 oz) (27) BMI (Calculated): [24.3-26.3] 24.3 (09/05 27) Physical Exam General appearance: alert, appears stated age and cooperative Head: Normocephalic, without obvious abnormality, atraumatic Neck: no adenopathy, no carotid bruit, no JVD, supple, symmetrical, trachea midline and thy roid not enlarged, symmetric, no tenderness/mass/nodules Back: no tenderness to percussion or palpation Lungs: clear to auscultation bilaterally Heart: regular rate and rhythm, S1, S2 normal, no murmur, click, rub or gallop Abdomen: soft, non-tender; bowel sounds normal; no masses, no organomegaly Extremities: extremities normal, atraumatic, no cyanosis or edema, 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 Pulses: 2+ and symmetric Neurologic: Grossly normal DATA CBC: Lab Results Component Value Date WBC 5.1 09/05/2011 RBC 3.39* 09/05/2011 HGB 9.9* 09/05/2011 HCT 30.8* 09/05/2011 MCV 91.0 09/05/2011 MCH 29.4 09/05/2011 MCHC 32.3 09/05/2011 RDW 59.5* 09/05/2011 PLT 184 09/05/2011 MPV 8.5 09/05/2011 DIFFTYPE AUTOMATED 09/05/2011 CMP: Lab Results Component Value Date NA 140 09/05/2011 K 4.3 09/05/2011 CL 105 09/05/2011 CO2 29 09/05/2011 ANIONGAP 11 09/05/2011 GLUF 88 09/05/2011 BUN 24* 09/05/2011 CREATININE 2.0* 09/05/2011 BCR 12 09/05/2011 CA 8.2* 09/05/2011 PROT 7.3 09/04/2011 ALB 4.1 09/04/2011 GLOB 3.3 09/04/2011 BILITOT 0.6 09/04/2011 ALP 50 09/04/2011 AST 66* 09/04/2011 ALT 27 09/04/2011 EGFR 35* 09/05/2011 PROBLEM LIST Principal Problem: *Syncope and collapse Active Problems: Rhabdomyolysis ARF (acute renal failure) Male hypogonadism Unspecified hypothyroidism Adrenal adenoma HTN (hypertension) Orthostatic hypotension GERD (gastroesophageal reflux disease) ASSESSMENT & PLAN 1.weakness unclear if with Syncope - PT ordered today, cont on telemetry, follow up EEG, TSH. Likely weakness is related to re nal failure 2.ARF most likely secondary to dehydration and diuretic home meds (HCTZ) complicated with e levated CPK, strict I/Os, avoid nephrotoxic meds and contrast, cont with IV hydration at 200 ml/hr until CPK lower 3.Elevated CPK secondary to muscle trauma and falling ,see # 2 4.BP now elevated, increase hydralazine as needed 5. Anemia , non specific , await will check iron panel, LDH and retic count,hemocult stool. 6DVT/GI px SCDs and PPI Disposition: continued inpatient Code Status: DNR/DNI CHERELLE JANSEN MD 09/05/2011 onversion Transact ion, Provider Unknown - 09/05/2011 10:35 AM PDTFormatting of this note might be different fr om the original. Progress Notes by Soto Bañuelos RN at 09/05/11 1035 Author: Soto Bañuelos RN Service: (none) Author Type: Quantitative Software Engineer Filed: 09/05/11 1035 Date of Service: 09/05/11 103 Status: Signed Rock Dust Sprayer: Soto Bañuelos RN (Quantitative Software Engineer) Discharge Plan: Plan is to return home with spouse, who will transport, when medically stable for discharge . No HH or DME needs anticipated for discharge. CM will continue to follow SOTO BAÑUELOS RN docume nted in this encounter H&P Notes Rivas Stevens MD - 09/04/2011 10:24 PM PDTFormatting of this note might be different from th e original. H&P by Rivas Stevens MD at 09/04/112223 Author: Rivas Stevens MD Service: Hospitalist Author Type: Physician Filed: 09/05/11 0027 Date of Service: 09/04/112223 Status: Signed Rock Dust Sprayer: Rivas Stevens MD (Physician) [facility] Service: Hospitalist Admission History & Physical Date of Admission: 09/04/2011 Requesting Physician: , Emergency Department Reason for Admission: ARF and elevated CPK History Obtained From: patient, chart review CHIEF COMPLAINT: i was sent here due to abnormal kidney function and syncope HISTORY OF PRESENT ILLNESS The patient is a 76 y.o. male with ,multiple medical problems ,please see PMHx section, who presents with from [facility] after having abnormal labs in drawn by his PCP today. Pt states that that his "kidney function was not right", and he was sent to the ED there. Pt st ates that he was working outside over the past two days, and was exerting himself while mowi ng the lawn. The patient complains of chronic fatigue, and has been hypotensive since . Pt had near syncopal episodes both last night and this morning, and both times his BP was in the 70's systolic. Pt has been having similar episodes for the past few months and repor jaqueline to his PCP which according to patient didn't do anything about it,he had a negative Car diac stress test at [facility] per his a month ago for pre-op for an elective surgery,he denies hitting his head when he LOC but he did hit his lip on the couch,the witnessed it and didn't see an abnormal jerking or movements,he says he usually doesn't drin k a lot of water and as far as he knows he had normal kidney function last month,he also has hx of hypothyroid and hypogonadism,and a known adrenal nodule, he is adherent to his medica tions, i asked to recheck a CPK and to order a CT-head and insert a trejo in ED prior to transferring to floor. He denies chest pain or SOB he has pain in his muscle of rig ht upper extremity and also low back pain. No headache or blurry vision and he is in NSR on tele during my exam. REVIEW OF SYSTEMS Negative except for pertinent items noted in HPI. 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 No pertinent family history. History Social History Marital Status: Spouse Name: N/A Number of Children: N/A Years of Education: N/A Occupational History Not on file. Social History Main Topics Smoking status: Never Smoker Smokeless tobacco: Not on file Alcohol Use: Yes rarely Drug Use: No Sexually Active: Other Topics Concern Not on file Social History Narrative No narrative on file PHYSICAL EXAM Vital Signs: BP 136/74 | Pulse 88 | Temp(Src) 98.3 F (36.8 C) (Oral) | Resp 20 | Ht 1.778 m (5' 10") | Wt 83.054 kg (183 lb 1.6 oz) | BMI 26.27 kg/m2 | SpO2 99% General appearance: alert, appears stated age and cooperative Head: Normocephalic, without obvious abnormality, atraumatic Neck: no adenopathy, no carotid bruit, no JVD, supple, symmetrical, trachea midline and thy roid not enlarged, symmetric, no tenderness/mass/nodules Back: no tenderness to percussion or palpation Lungs: clear to auscultation bilaterally Heart: regular rate and rhythm, S1, S2 normal, no murmur, click, rub or gallop Abdomen: soft, non-tender; bowel sounds normal; no masses, no organomegaly Extremities: extremities normal, atraumatic, no cyanosis or edema Pulses: 2+ and symmetric Neurologic: Grossly normal DATA CBC: Lab Results Component Value Date WBC 7.0 09/04/2011 RBC 3.78* 09/04/2011 HGB 11.1* 09/04/2011 HCT 34.6* 09/04/2011 MCV 91.7 09/04/2011 MCH 29.4 09/04/2011 MCHC 32.0 09/04/2011 RDW 59.5* 09/04/2011 PLT 231 09/04/2011 MPV 8.9 09/04/2011 DIFFTYPE AUTOMATED 09/04/2011 CMP: Lab Results Component Value Date NA 138 09/04/2011 K 4.2 09/04/2011 CL 100 09/04/2011 CO2 29 09/04/2011 ANIONGAP 13 09/04/2011 GLUF 89 09/04/2011 BUN 28* 09/04/2011 CREATININE 2.8* 09/04/2011 BCR 10 09/04/2011 CA 8.8 09/04/2011 PROT 7.3 09/04/2011 ALB 4.1 09/04/2011 GLOB 3.3 09/04/2011 BILITOT 0.6 09/04/2011 ALP 50 09/04/2011 AST 66* 09/04/2011 ALT 27 09/04/2011 EGFR 23* 09/04/2011 Magnesium: Lab Results Component Value Date MG 2.1 09/04/2011 Phosphorus: Lab Results Component Value Date PHOS 3.6 09/04/2011 Troponin: Lab Results Component Value Date TROPONINI 0.02 09/04/2011 CPK: Lab Results Component Value Date CKTOTAL 1090* 09/04/2011 CKMB: Lab Results Component Value Date CKMB 18.1* 09/04/2011 Troponin I: Lab Results Component Value Date TROPONINI 0.02 09/04/2011 Labs from [facility] : Labs reviewed from outside facility CMP 08/18 Creatinine 1.59 GFR Estimation: 42 Calcium: 8.2 Protein 5.6 CMP 09/03 Glucose: 102 Urea Nitrogen: 28 Creatinine: 2.94 AST: 47 CBC 08/18 RBC: 3.43 Hemoglobin: 10.2 Hematocrit: 31.0 RDW: 17.8 Neutrophils: 73.8 Lymphocytes: 14.5 CBC 09/03 RBC: 3.71 Hemoglobin: 11.3 Hematocrit: 33.2 Neutrophils 81.6 D-Dimer: <200 09/03 Creatinine Kinase: 847 CKMB-MASS: 21.[address] abdomen 08/19/2011 No acute changes. No evidence of trauma. Tiny gallstones. Atherosclerotic disease. Stable r enal cysts and left adrenal nodule. Diverticulosis without evidence of diverticulitis. Radiology Review: CT-head IMPRESSION: 1. Atrophy and small vessel disease. 2. 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 Read by Ramses Muhammad MD on Sep 04 2011 10:17PM EKG :EKG Interpretation Rhythm: Sinus Ventricular Rate: 73 PA Interval: Normal ST Segments: Normal Significant Q-waves: None Blocks: None [place]: Normal All labs and image reports reviewed by me PROBLEM LIST Principal Problem: *Syncope and collapse Active Problems: Rhabdomyolysis ARF (acute renal failure) Male hypogonadism Unspecified hypothyroidism Adrenal adenoma HTN (hypertension) Orthostatic hypotension GERD (gastroesophageal reflux disease) ASSESSMENT & PLAN 1.Syncope which is recurrent , could be due to metabolic/endorine (hypothyroid/adrena insuf ficieny?) vs cardiac vs Neurologic such Seizures, will admit to tele and check 2 more sets o f cardiac enzymes and ECHO,EEG,TSH,Cortisol in AM.cant do CT-PE but he had a low D.dimer and has no symptoms. 2.ARF most likely secondary to dehydration and diuretic home meds (HCTZ) complicated with e levated CPK, strict I/Os, avoid nephrotoxic meds and contrast, renal U/S, urine NA, urine eo sinophils, urine myoglobin,uric acid, IVF NS @ 200ml/hr. 3.Elevated CPK secondary to muscle trauma and falling ,see # 2 4.Orthostatic hypotension SBP in 70s per his , need to hydrate and R/o adrenal insuffic ieny given personal hx of endocrine disease and presence of adrenal adenoma.check cortisol l evel in AM. 5. Anemia , non specific , will check iron panel, LDH and retic count,hemocult stool. 6DVT/GI px SCDs and PPI Disposition: Admit to acute care with tele Code Status: DNR/DNI Primary Care Physician: AARON BELTRAN MD, MD Rivas Stevens MD 09/04/2011 documented in this encou nter ED Notes Conversion Transaction, Provider Unknown - 09/04/2011 11:28 PM PDTFormatting of this note m ight be different from the original. ED Notes by Ramses Munson RN at 09/04/112327 Author: Ramses Munson RN Service: (none) Author Type: Registered Nurse Filed: 09/04/112327 Date of Service: 09/04/112327 Status: Signed Rock Dust Sprayer: Ramses Munson RN (Registered Nurse) Report from Magalie Munson RN 09/04/112327 onver brianna Transaction, Provider Unknown - 09/04/2011 9:23 PM PDT ED Notes by Danielle Alcantara RN at 09/04/112122 Author: Danielle Alcantara RN Service: (none) Author Type: Registered Nurse Filed: 09/04/112122 Date of Service: 09/04/112122 Status: Signed Rock Dust Sprayer: Danielle Alcantara RN (Registered Nurse) No change in pt condition since admission to the ED Danielle Alcantara RN 09/04/112122 onver brianna Transaction, Provider Unknown - 09/04/2011 9:22 PM PDT ED Notes by Danielle Alcantara RN at 09/04/112121 Author: Danielle Alcantara RN Service: (none) Author Type: Registered Nurse Filed: 09/04/112121 Date of Service: 09/04/112121 Status: Signed Rock Dust Sprayer: Danielle Alcantara RN (Registered Nurse) Food tray ordered Danielle Alcantara RN 09/04/112121 onver brianna Transaction, Provider Unknown - 09/04/2011 7:59 PM PDT ED Notes by Magalie Reyna RN at 09/04/111958 Author: Magalie Reyna RN Service: (none) Author Type: Registered Nurse Filed: 09/04/111958 Date of Service: 09/04/111958 Status: Signed Rock Dust Sprayer: Magalie Reyna RN (Registered Nurse) Patient at bedside attempting to urinate in urinal. Magalie Reyna RN 09/04/111958 onver brianna Transaction, Provider Unknown - 09/04/2011 7:15 PM PDT ED Notes by Magalie Reyna RN at 09/04/111914 Author: Magalie Reyna RN Service: (none) Author Type: Registered Nurse Filed: 09/04/111914 Date of Service: 09/04/111914 Status: Signed Rock Dust Sprayer: Magalie Reyna RN (Registered Nurse) at bedside (Dr. Redmond). Magalie Reyna RN 09/04/111914 ranth am, Kevin Noble MD - 09/04/2011 7:14 PM PDT ED Provider Notes by Kevin Redmond MD at 09/04/111913 Author: Kevin Redmond MD Service: (none) Author Type: Physician Filed: 09/05/11 0202 Date of Service: 09/04/111913 Status: Signed Rock Dust Sprayer: Kevin Redmond MD (Physician) 7:14 PM [facility] Department of Emergency Medicine History of Present Illness Patient Identification Joseph Cabrera is a 76 y.o. male. Patient information was obtained from patient and spouse/partner. History/Exam limitations: none. Patient presented to the Emergency Department by: Car Chief Complaint Chief Complaint Patient presents with Electrolyte Imbalance "my kidneys aren't right and [facility] sent me". The patient presents to the ED after having abnormal labs in drawn by his PCP today. Pt sta sherry that that his "kidney function was not right", and he was sent to the ED. Pt states that he was working outside over the past two days, and was exerting himself while mowing the la wn. The patient complains of chronic fatigue, and has been hypotensive since May. Pt peñaloza d near syncopal episodes both last night and this morning, and both times his BP was in the 70's systolic. Pt has been having similar episodes for the past few months. The symptoms are described to be of moderate severity. 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 No modifying factors. 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 Authorizing Provider aspirin 81 MG tablet Take 81 mg by mouth daily. Yes Historical Provider, cabergoline (DOSTINEX) 0.5 MG tablet Take 0.25 mg by mouth twice a week. Yes Historical Provider, citalopram (CELEXA) 40 MG tablet Take 40 mg by mouth daily. Yes Historical Provider, BA-Uqicrppnci-Bracscbhpjzate (FOLBIC) 2.5-25-2 MG TABS Take 1 tablet by mouth daily. Ye s Historical Provider, fish oil-omega-3 fatty acids 1000 MG capsule Take 2 g by mouth daily. Yes Historical Pr MD vitaliy hydrocodone-acetaminophen (NORCO) 10-325 MG per tablet Take 1-2 tablets by mouth every 6 (s ix) hours as needed. Yes Historical Provider, levothyroxine (SYNTHROID, LEVOTHROID) 137 MCG tablet Take 137 mcg by mouth daily. Yes H istorical Provider, losartan-hydrochlorothiazide (HYZAAR) 100-25 MG per tablet Take 0.5 tablets by mouth daily. Yes Historical Provider, omeprazole (PRILOSEC) 40 MG capsule Take 80 mg by mouth 2 (two) times daily. Yes Histor ical Provider, testosterone cypionate (DEPO-TESTOSTERONE) 200 MG/ML injection Inject 200 mg into the muscl e every 14 (fourteen) days. Yes Historical Provider, tizanidine (ZANAFLEX) 4 MG tablet Take 4 mg by mouth every 6 (six) hours as needed. Yes Historical Provider, Allergies Allergen Reactions Flexeril (Cyclobenzaprine) Hallucinations Morphine Hallucinations Percocet (Oxycodone-Acetaminophen) Nausea and Vomiting History Social History Marital Status: Spouse Name: N/A Number of Children: N/A Years of Education: N/A Occupational History Not on file. Social History Main Topics Smoking status: Never Smoker Smokeless tobacco: Not on file Alcohol Use: No rarely Drug Use: No Sexually Active: Other Topics Concern Not on file Social History Narrative No narrative on file History reviewed. No pertinent family history. Review of Systems Constitutional: Negative for: fever, chills, fatigue Positive for: fatigue Eyes: Negative for: decreased vision or irritated eyes Nose: Negative for: runny nose, nosebleeds Throat: Negative for: sore throat, mouth sores Cardiovascular/Respiratory: Negative for: chest pain, shortness of breath Positive for: hypotension Gastrointestinal: Negative for: abdominal pain, vomiting, diarrhea Genitourinary: Negative for: dysuria, hematuria, urinary problems Musculoskeletal: Negative for: myalgias and arthralgias Skin: Negative for: laceration or lesion Neuro and psych: Negative for: head injury Positive for: near syncopal epidsodes Endocrine/Heme/Lymph: Negative for: swollen lymph nodes, easy bruising Physical Exam BP 144/80 | Pulse 88 | Temp(Src) 98.1 F (36.7 C) (Oral) | Resp 16 | Ht 1.778 m (5' 10") | Wt 83.054 kg (183 lb 1.6 oz) | BMI 26.27 kg/m2 | SpO2 96% Pulse Oximetry interpretation: Normal Vital signs: hypertensive, otherwise normal General: Alert, NAD Eyes: Normal inspection, pupils equal and round, non-icteric ENT: Normal external inspection Neck: Normal inspection Supple Cardiovascular: Rate and rhythm normal No murmurs Respiratory: Breath sounds normal bilaterally Abdomen: Soft, non-tender, non-distended No guarding or rebound Back: Normal inspection Skin: Color normal Warm and dry No rash Neuro: No gross motor or sensory deficits Medical Decision Making and Emergency Department Course ED Department Course 7:14 PM Pt presents to the ED after being sent by his PCP after having abnormal labs drawn by his P CP this afternoon. Pt states that his "kidney function was not right". Pt states that the two days he was outside working in his yard and mowing his lawn. Additionally, the pt's s pouse states that the pt has had two near syncopal episodes over the last two days, and has had multiple such episodes since May. During the episodes, the pt's spouse measures the pt's systolic BP in the 70's. 9:08 PM Pt recheck. Pt is resting comfortably. It is not obvious why he has these episodes of weakn ess nad hypotension. 9:23 PM Upon review of the patient s history, physical and the results of studies I believe that the patient warrants admission to the hospital for further evaluation and treatment. I have spoken with the patient regarding the need for admission to the hospital, and the patient h as expressed understanding of this. I will call and arrange for admission at this time. 9:[address] Stevens in the ED to see the pt. 10:17 PM CPK 1090. MMB 18.1. BUN and Creatinine elevated. Anemia noted. Head CT reviewed. No acute processes. Records Reviewed Old medical records. Nursing notes. Old ED records reviewed (Using the electronic record system of [facility], I dilan talaveray reviewed the records with regard to the past medical/surgical history, previous medic ations, and allergies). Labs reviewed from outside facility CMP 08/18 Creatinine 1.59 GFR Estimation: 42 Calcium: 8.2 Protein 5.6 CMP 09/03 Glucose: 102 Urea Nitrogen: 28 Creatinine: 2.94 AST: 47 CBC 08/18 RBC: 3.43 Hemoglobin: 10.2 Hematocrit: 31.0 RDW: 17.8 Neutrophils: 73.8 Lymphocytes: 14.5 CBC 09/03 RBC: 3.71 Hemoglobin: 11.3 Hematocrit: 33.2 Neutrophils 81.6 D-Dimer: <200 09/03 Creatinine Kinase: 847 CKMB-MASS: 21.9 CT abdomen: No acute changes. No evidence of trauma. Tiny gallstones. Atherosclerotic disease. Stable r enal cysts and left adrenal nodule. Diverticulosis without evidence of diverticulitis. Troponin negative He has syncope. He has dehydration. No acute infarct. He can have some rhabdomyolysis altho ugh it is not obvious why that would occur. He will be admitted. Laboratory Evaluation Results Procedure Component Value Ref Range Flag Date/Time Urine Microscopic [[id number]] Collection: 09/04/112234 Order Status: Completed Resulted: 09/04/112303 Specimen Type: Urine WBC 0-2 0 - 5 /hpf RBC 0-2 0 - 5 /hpf EPITHELIAL 0-2 /lpf BACTERIA NONE SEEN NONE SEEN POC clinitek 10 [[id number]] Collection: 09/04/112228 Order Status: Completed Resulted: 09/04/112232 Color, UA YELLOW Clarity, UA CLEAR Glucose, UA NEGATIVE NEGATIVE mg/dL Bilirubin, UA NEGATIVE NEGATIVE Ketones, UA NEGATIVE NEGATIVE mg/dL Spec Grav, UA 1.020 1.001 - 1.035 Blood, UA NEGATIVE NEGATIVE pH, UA 5.0 4.6 - 8.0 Protein, UA NEGATIVE NEGATIVE mg/dL Urobilinogen, UA 0.2 <1.1 mg/dL Nitrite, UA NEGATIVE NEGATIVE WBC, UA NEGATIVE NEGATIVE CPK [[id number]] Abnormal Collection: 09/04/111948 Order Status: Completed Resulted: 09/04/112216 CPK 1090 25 - 287 U/L H CK MB [[id number]] Abnormal Collection: 09/04/111948 Order Status: Completed Resulted: 09/04/112216 MMB 18.1 0.5 - 3.6 ng/mL H CK-MB Index 1.7 Magnesium [[id number]] Collection: 09/04/111948 Order Status: Completed Resulted: 09/04/112216 MAGNESIUM 2.1 1.5 - 2.4 mg/dL Phosphorus [[id number]] Collection: 09/04/111948 Order Status: Completed Resulted: 09/04/112216 PHOSPHORUS 3.6 2.5 - 4.8 mg/dL Complete Metabolic Panel [[id number]] Abnormal Collection: 09/04/111948 Order Status: Completed Resulted: 09/04/112023 Specimen Type: Blood SODIUM 138 135 - 145 mmol/L POTASSIUM 4.2 3.5 - 5.0 mmol/L CHLORIDE 100 98 - 109 mmol/L CO2 29 23 - 32 mmol/L ANION GAP AGAP 13 5 - 20 mmol/L GLUCOSE 89 65 - 99 mg/dL BUN 28 7 - 23 mg/dL H CREATININE 2.8 0.7 - 1.5 mg/dL H BUN/CREAT 10 CALCIUM 8.8 8.5 - 10.5 mg/dL TOTAL PROTEIN 7.3 6.4 - 8.3 g/dL Albumin 4.1 3.3 - 4.8 g/dL GLOBULIN 3.3 1.3 - 4.9 g/dL A/G 1.3 1.0 - 2.4 TBIL 0.6 0.1 - 1.5 mg/dL ALK PHOS 50 38 - 110 U/L AST 66 5 - 40 U/L H ALT 27 5 - 50 U/L EGFR 23 >60 mL/min/1.73m2 L Troponin I, Lab [[id number]] Collection: 09/04/111948 Order Status: Completed Resulted: 09/04/112023 Specimen Type: Blood TROPONIN I 0.02 0.00 - 0.10 ng/mL CBC w Auto Diff [[id number]] Abnormal Collection: 09/04/111948 Order Status: Completed Resulted: 09/04/112001 Specimen Type: Blood WBC 7.0 4.0 - 11.0 K/uL RBC 3.78 4.30 - 5.70 M/uL L HGB 11.1 13.7 - 16.7 g/dL L HCT 34.6 40.0 - 50.0 % L MCV 91.7 80.0 - 100.0 fl MCH 29.4 27.0 - 34.0 pg MCHC 32.0 32.0 - 35.5 g/dL RDW SD 59.5 37 - 53 fl H PLT 231 150 - 400 K/uL MPV 8.9 fl DIFF TYPE AUTOMATED NEUTROPHILS 75.8 40 - 80 % LYMPHOCYTES 15.6 15 - 45 % MONOCYTES 6.4 0 - 12 % EOSINOPHILS 2.1 0 - 7 % BASOPHILS 0.1 0 - 2 % NEUTROPHILS ABS 5.3 2.0 - 7.3 K/uL LYMPHOCYTES ABS 1.1 1.0 - 3.4 K/uL MONOCYTES ABS 0.4 0 - 0.8 K/uL EOSINOPHILS ABS 0.1 0 - 0.5 K/uL BASOPHILS ABS 0.0 0 - 0.1 K/uL Radiology and EKG Evaluation Imaging Results CT Head Non-Con (Preliminary result) Result time:09/04/112216 Preliminary result by Rad Results In [place] (09/04/11 ) Narrative: IMPRESSION: 1. Atrophy and small vessel disease. 2. 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 Read by Ramses Muhammad MD on Sep 04 2011 10:17PM EKG Interpretation 1858 Rhythm: Sinus Ventricular Rate: 73 PA Interval: Normal ST Segments: Normal Significant Q-waves: None Blocks: None [place]: Normal Viewed and interpreted by me: Kevin Redmond MD ED Diagnoses Final diagnoses Syncope Near syncope New Renal insufficiency Disposition: ED Disposition Admit/Observation Diagnosis?: syncope, near syncope, new renal insufficiency Bed request special needs: None Follow-up Information None Discharge Medications: New Prescriptions No new medications Additional Documentation Procedures Attending Note: Documentation assistance provided by Lamine Hunter (Scribe). Information recorded by the scribe has been reviewed and validated by . Gael rahman with its contents. MD Kevin Thomason MD 09/05/11 0202 documente d in this encounter Plan of Treatment Not on filedocumented as of this encounter Procedures + +--------+ + + + | Procedure Name | Priori | Date/Time | Associated Diagnosis | Comments | | | ty | | | | + +--------+ + + + | EXTERNAL LAB: OCCULT | Timed | 09/05/2011 | | Results for this | | BLOOD, SCREENING | | 3:18 PM | | procedure are in the | | | | PDT | | results section. | + +--------+ + + + | ECHO COMPLETE | Routin | 09/05/2011 | | Results for this | | | e | 8:20 AM | | procedure are in the | | | | PDT | | results section. | + +--------+ + + + | US RENAL LIMITED | Routin | 09/05/2011 | | Results for this | | | e | 5:04 AM | | procedure are in the | | | | PDT | | results section. | + +--------+ + + + | CT HEAD WO CONTRAST | Routin | 09/04/2011 | | Results for this | | | e | 10:02 PM | | procedure are in the | | | | PDT | | results section. | + +--------+ + + + documented in this encounter Results External Lab: Occult Blood, Screening (09/05/2011 3:18 PM PDT) + + | Specimen | + + | Stool specimen | | (specimen) | + + + + + | Narrative | Performed At | + + + | Fecal Occult Blood NEGATIVE Testing | EXTERNAL LAB | | performed at [facility];[address] [place] [address];[place] [address] | | + + + + +---------+ + + | Performing | Address | City/State/Zipcode | Phone Number | | Organization | | | | + +---------+ + + | EXTERNAL LAB | | | | + +---------+ + + ECHO Complete (09/05/2011 8:20 AM PDT) + + | Specimen | + + | | + + + + + | Narrative | Performed At | + + + | Patient Name: JOSEPH CABRERA Date of : 1935 | | | Performing Physician: Iggy Kirby MD | | | | | | INDICATIONS SYNCOPE/COLLAPSE TDS LABORED BREATHING | | | CONCLUSIONS 1. This was a technically difficult study | | | with suboptimal views. 2. Overall left ventricular systolic function | | | is normal with, an EF between 55 - 60 %. 3. Aortic valve is mildly | | | thickened. 4. Vrxc-ae-fkpnnaqa mitral regurgitation is present. | | | FINDINGS -------- ECG rhythm: Sinus rhythm. Study: A 2-dimensional | | | transthoracic echocardiogram with m-mode, spectral and color flow | | | Doppler was perfomed. Study: This was a technically difficult study | | | with suboptimal views. Left Ventricle: Overall left ventricular | | | systolic function is normal with, an EF between 55 - 60 %. Left | | | Ventricle: There is mild concentric left ventricular hypertrophy. | | | Right Ventricle: The right ventricle is normal in size and function. | | | Right Ventricle: Moderator band is visualized in the right ventricular | | | apex. Left Atrium: The left atrium is normal in size. Right Atrium: | | | The right atrium is mildly enlarged. Aortic Valve: Aortic valve is | | | mildly thickened. Aortic Valve: Trace amount of aortic regurgitation. | | | Aortic Valve: There is no evidence of aortic stenosis. 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 Mitral | | | Valve: Oxwe-xh-fvsixiqp mitral regurgitation is present. Tricuspid | | | Valve: The tricuspid valve appears structurally normal. Tricuspid | | | Valve: Mild tricuspid regurgitation present. Tricuspid Valve: Right | | | ventricular systolic pressure (pulmonary artery systolic pressure) is | | | normal at < 35 mmHg. Pulmonic Valve: The pulmonic valve was not well | | | visualized. Pericardium: There is no pericardial effusion. | | | IVC/Hepatic Veins: The IVC is small (<1.5cm) and collapses with sniff, | | | consistent with central venous pressures of 0-5mmHg. MEASUREMENTS | | | IVC: 1.54 cm LA Major: 4.98 cm EDV(Teich): | | | 84.96 ml IVSd: 1.26 cm LVIDd: 4.34 cm LVPWd: 1.32 cm | | | LVOT Diam: 2.15 cm RA Major: 5.69 cm RVIDd: 3.06 cm LVEF | | | MOD A2C: 47.34 % SV MOD A2C: 39.60 ml LVEF MOD A4C: 61.80 % | | | SV MOD A4C: 56.72 ml EF Biplane: 57.45 % LVEDV MOD BP: | | | 92.67 ml LVESV MOD BP: 39.43 ml LVEDV MOD A2C: 83.64 ml LVLd | | | A2C: 7.04 cm LVEDV MOD A4C: 91.77 ml LVLd A4C: 7.95 cm | | | LVESV MOD A2C: 44.03 ml LVLs A2C: 6.09 cm LVESV MOD A4C: | | | 35.05 ml LVLs A4C: 5.95 cm LAESV(A-L): 53.86 ml LAESV Index | | | (A-L): 27.20 ml/m2 LAAs A2C: 17.92 cm2 LAESV A-L A2C: 55.50 | | | ml LALs A2C: 4.91 cm LAAs A4C: 16.59 cm2 LAESV A-L A4C: | | | 49.89 ml LALs A4C: 4.68 cm HR: 86.32 BPM AV maxP.04 | | | mmHg AV meanP.64 mmHg AV Vmax: 1.87 m/s AV Vmean: 1.33 | | | m/s AV VTI: 38.92 cm QUINTEN Vmax: 2.32 cm2 QUINTEN (VTI): 2.28 | | | cm2 LVCI Dopp: 3.35 l/minm2 LVCO Dopp: 6.64 l/min HR: | | | 74.79 BPM LVOT maxP.68 mmHg LVOT meanP.08 mmHg LVSI | | | Dopp: 44.89 ml/m2 LVSV Dopp: 88.89 ml LVOT Vmax: 1.19 m/s | | | LVOT Vmean: 0.82 m/s LVOT VTI: 24.33 cm MCO: 421.44 ms MR | | | maxP.18 mmHg MR Vmax: 5.07 m/s MV E Perez: 0.12 m/s MV | | | A Perez: 1.22 m/s MV DecT: 168.02 ms MV E Perez: 1.13 m/s MV | | | E/A Ratio: 0.93 MV PHT: 52.28 ms MVA By PHT: 4.20 cm2 MV A | | | Dur: 147.87 ms MV maxP.81 mmHg MV meanP.55 mmHg | | | MV Vmax: 1.20 m/s MV Vmean: 0.74 m/s MV VTI: 27.91 cm MVA | | | (VTI): 3.18 cm2 Septal e': 0.09 m/s Septal E/e': 1.30 P | | | Vein A: 0.33 m/s P Vein A Dur: 110.90 ms P Vein D: 0.39 m/s | | | P Vein S/D Ratio: 2.08 P Vein S: 0.81 m/s TR maxP.73 | | | mmHg TR Vmax: 2.22 m/s TV A Perez: 0.59 m/s TV Dec Gosper: | | | 1.59 m/s2 TV Dec Time: 328.86 ms TV E Perez: 0.52 m/s TV E/A | | | Ratio: 0.88 Chain Sales Representative: DEDE Authenticated by: Iggy Kirby MD | | | Report Date/Time: 09-05-2011 12:16:59 | | + + + + + | Procedure Note | + + | Catarino Segura Conversion - 01/01/2019 2:57 AM PDT Patient Name: Tex CABRERA | | of : 1935 Physician: Iggy Kirby | | MD INDICATIONS S | | YNCOPE/COLLAPSE TDS LABORED BREATHING CONCLUSIONS 1. This was a technically | | difficult study with suboptimal views.2. Overall left ventricular systolic function is | | normal with, an EF between 55 - 60 %.3. Aortic valve is mildly thickened.4. | | Palm-at-oxvnkkvt mitral regurgitation is present. FINDINGS--------ECG rhythm: Sinus | | rhythm.Study: A 2-dimensional transthoracic echocardiogram with m-mode, spectral and | | color flow Doppler was perfomed.Study: This was a technically difficult study with | | suboptimal views.Left Ventricle: Overall left ventricular systolic function is normal | | with, an EF between 55 - 60 %.Left Ventricle: There is mild concentric left ventricular | | hypertrophy.Right Ventricle: The right ventricle is normal in size and function.Right | | Ventricle: Moderator band is visualized in the right ventricular apex.Left Atrium: The | | left atrium is normal in size.Right Atrium: The right atrium is mildly enlarged.Aortic | | Valve: Aortic valve is mildly thickened.Aortic Valve: Trace amount of aortic | | regurgitation.Aortic Valve: There is no evidence of aortic stenosis.Mitral Valve: Mitral | | valve is thickened with nodular degeneration.Mitral Valve: Valc-ce-hhzgadzj mitral | | regurgitation is present.Tricuspid Valve: The tricuspid valve appears structurally | | normal.Tricuspid Valve: Mild tricuspid regurgitation present.Tricuspid Valve: Right | | ventricular systolic pressure (pulmonary artery systolic pressure) is normal at < 35 | | mmHg.Pulmonic Valve: The pulmonic valve was not well visualized.Pericardium: There is no | | pericardial effusion.IVC/Hepatic Veins: The IVC is small (<1.5cm) and collapses with | | sniff, consistent with central venous pressures of 0-5mmHg. | | MEASUREMENTS IVC: 1.54 cmLA Major: 4.98 cmEDV(Teich): 84.96 mlIVSd: | | 1.26 cmLVIDd: 4.34 cmLVPWd: 1.32 cmLVOT Diam: 2.15 cmRA Major: 5.69 cmRVIDd: | | 3.06 cmLVEF MOD A2C: 47.34 %SV MOD A2C: 39.60 mlLVEF MOD A4C: 61.80 %SV MOD A4C: | | 56.72 mlEF Biplane: 57.45 %LVEDV MOD BP: 92.67 mlLVESV MOD BP: 39.43 mlLVEDV MOD | | A2C: 83.64 mlLVLd A2C: 7.04 cmLVEDV MOD A4C: 91.77 mlLVLd A4C: 7.95 cmLVESV MOD | | A2C: 44.03 mlLVLs A2C: 6.09 cmLVESV MOD A4C: 35.05 mlLVLs A4C: 5.95 | | cmLAESV(A-L): 53.86 mlLAESV Index (A-L): 27.20 ml/m2LAAs A2C: 17.92 [id number] A-L | | A2C: 55.50 mlLALs A2C: 4.91 cmLAAs A4C: 16.59 [id number] A-L A4C: 49.89 mlLALs | | A4C: 4.68 cmHR: 86.32 BPMAV maxP.04 mmHgAV meanP.64 mmHgAV Vmax: 1.87 | | m/Sagar Vmean: 1.33 m/Sagar VTI: 38.92 cmAVA Vmax: 2.32 cm2AVA (VTI): 2.28 [id number] | | Dopp: 3.35 l/qkgs1TKZF Dopp: 6.64 l/minHR: 74.79 BPMLVOT maxP.68 mmHgLVOT | | meanP.08 mmHgLVSI Dopp: 44.89 ml/m2LVSV Dopp: 88.89 mlLVOT Vmax: 1.19 | | m/sLVOT Vmean: 0.82 m/sLVOT VTI: 24.33 cmMCO: 421.44 msMR maxP.18 mmHgMR | | Vmax: 5.07 m/sMV E Perez: 0.12 m/sMV A Perez: 1.22 m/sMV DecT: 168.02 msMV E Perez: | | 1.13 m/sMV E/A Ratio: 0.93MV PHT: 52.28 msMVA By PHT: 4.20 cm2MV A Dur: 147.87 | | msMV maxP.81 mmHgMV meanP.55 mmHgMV Vmax: 1.20 m/sMV Vmean: 0.74 m/sMV | | VTI: 27.91 cmMVA (VTI): 3.18 fw2Flklec e': 0.09 m/sSeptal E/e': 1.30P Vein A: | | 0.33 m/sP Vein A Dur: 110.90 msP Vein D: 0.39 m/sP Vein S/D Ratio: 2.08P Vein S: | | 0.81 m/sTR maxP.73 mmHgTR Vmax: 2.22 m/sTV A Perez: 0.59 m/sTV Dec Gosper: | | 1.59 m/s2TV Dec Time: 328.86 msTV E Perez: 0.52 m/sTV E/A Ratio: 0.88 Chain Sales Representative: | | KVWAuthenticated by: Iggy Kirby [facility] Date/Time: 09-05-2011 12:16:59 | |LA Major: 4.98 cm | |EDV(Teich): 84.96 ml | |IVSd: 1.26 cm | |LVIDd: 4.34 cm | |LVPWd: 1.32 cm | |LVOT Diam: 2.15 cm | |RA Major: 5.69 cm | |RVIDd: 3.06 cm | |LVEF MOD A2C: 47.34 % | |SV MOD A2C: 39.60 ml | |LVEF MOD A4C: 61.80 % | |SV MOD A4C: 56.72 ml | |EF Biplane: 57.45 % | |LVEDV MOD BP: 92.67 ml | |LVESV MOD BP: 39.43 ml | |LVEDV MOD A2C: 83.64 ml | |LVLd A2C: 7.04 cm | |LVEDV MOD A4C: 91.77 ml | |LVLd A4C: 7.95 cm | |LVESV MOD A2C: 44.03 ml | |LVLs A2C: 6.09 cm | |LVESV MOD A4C: 35.05 ml | |LVLs A4C: 5.95 cm | |LAESV(A-L): 53.86 ml | |LAESV Index (A-L): 27.20 ml/m2 | |LAAs A2C: 17.92 cm2 | |LAESV A-L A2C: 55.50 ml | |LALs A2C: 4.91 cm | |LAAs A4C: 16.59 cm2 | |LAESV A-L A4C: 49.89 ml | |LALs A4C: 4.68 cm | |HR: 86.32 BPM | |AV maxP.04 mmHg | |AV meanP.64 mmHg | |AV Vmax: 1.87 m/s | |AV Vmean: 1.33 m/s | |AV VTI: 38.92 cm | |QUINTEN Vmax: 2.32 cm2 | |QUINTEN (VTI): 2.28 cm2 | |LVCI Dopp: 3.35 l/minm2 | |LVCO Dopp: 6.64 l/min | |HR: 74.79 BPM | |LVOT maxP.68 mmHg | |LVOT meanP.08 mmHg | |LVSI Dopp: 44.89 ml/m2 | |LVSV Dopp: 88.89 ml | |LVOT Vmax: 1.19 m/s | |LVOT Vmean: 0.82 m/s | |LVOT VTI: 24.33 cm | |MCO: 421.44 ms | |MR maxP.18 mmHg | |MR Vmax: 5.07 m/s | |MV E Perez: 0.12 m/s | |MV A Perez: 1.22 m/s | |MV DecT: 168.02 ms | |MV E Perez: 1.13 m/s | |MV E/A Ratio: 0.93 | |MV PHT: 52.28 ms | |MVA By PHT: 4.20 cm2 | |MV A Dur: 147.87 ms | |MV maxP.81 mmHg | |MV meanP.55 mmHg | |MV Vmax: 1.20 m/s | |MV Vmean: 0.74 m/s | |MV VTI: 27.91 cm | |MVA (VTI): 3.18 cm2 | |Septal e': 0.09 m/s | |Septal E/e': 1.30 | |P Vein A: 0.33 m/s | |P Vein A Dur: 110.90 ms | |P Vein D: 0.39 m/s | |P Vein S/D Ratio: 2.08 | |P Vein S: 0.81 m/s | |TR maxP.73 mmHg | |TR Vmax: 2.22 m/s | |TV A Perez: 0.59 m/s | |TV Dec Gosper: 1.59 m/s2 | |TV Dec Time: 328.86 ms | |TV E Perez: 0.52 m/s | |TV E/A Ratio: 0.88 | | | |Chain Sales Representative: KVW | |Authenticated by: Iggy Kirby MD | |Report Date/Time: 09-05-2011 12:16:59 | + + US Renal Limited (09/05/2011 5:04 AM PDT) + + | Specimen | + + | | + + + + + | Narrative | Performed At | + + + | [facility] INDICATION: Acute renal failure. | | | TECHNIQUE: Real-time scanning with static images obtained. | | | FINDINGS: Right kidney measures 10.9 x 5.2 x 4.7 cm. There is an upper | | | pole cyst measuring 1.5 x 1.0 x 1.4 cm. Left kidney measures 11.8 x | | | 5.1 x 4.5 cm. There is an upper pole cyst measuring 3.0 x 2.7 x 3.0 | | | cm. No solid renal masses, hydronephrosis, or perinephric fluid | | | collections are seen. Color Doppler blood flow signal is seen in both | | | kidneys. The bladder is empty with a Trejo catheter in place. | | | IMPRESSION: 1. Kidneys appear normal aside from bilateral renal | | | cysts. 2. Bladder is empty with a Trejo catheter in place. | | | Electronically signed by Ramses Muhammad MD on Sep 06 2011 11:00PM | | + + + + + | Procedure Note | + + | Catarino Segura Conversion - 01/01/2019 2:57 AM PDT [facility] | | INDICATION: Acute renal failure. TECHNIQUE: Real-time scanning with static images | | obtained. FINDINGS: Right kidney measures 10.9 x 5.2 x 4.7 cm. There is an upper pole | | cyst measuring 1.5 x 1.0 x 1.4 cm. Left kidney measures 11.8 x 5.1 x 4.5 cm. There is an | | upper pole cyst measuring 3.0 x 2.7 x 3.0 cm. No solid renal masses, hydronephrosis, or | | perinephric fluid collections are seen. Color Doppler blood flow signal is seen in both | | kidneys. The bladder is empty with a Trejo catheter in place. IMPRESSION:1. Kidneys | | appear normal aside from bilateral renal cysts.2. Bladder is empty with a Trejo catheter | | in place. Electronically signed by Ramses Muhammad MD on Sep 06 2011 11:00PM | | | |IMPRESSION: | |1. Kidneys appear normal aside from bilateral renal cysts. | |2. Bladder is empty with a Trejo catheter in place. | | | | Electronically signed by Ramses Muhammad MD on Sep 06 2011 11:00PM | + + CT Head wo Contrast (09/04/2011 10:02 PM PDT) + + | Specimen | + + | | + + + + + | Narrative | Performed At | + + + | HEAD CT WITHOUT CONTRAST INDICATION: Near syncope. | | | TECHNIQUE: Axial noncontrast images were obtained. FINDINGS: There | | | is atrophy and small vessel disease. Small old bilateral lacunar | | | infarcts are seen. No mass, mass effect, or midline shift is seen. No | | | intracranial hemorrhage or extra axial fluid collections are noted. | | | Bone windows do not demonstrate a depressed skull fracture. | | | IMPRESSION: 1. Atrophy and small vessel disease. 2. Small old | | | bilateral lacunar infarcts. Electronically signed by Ramses Muhammad | | | on Sep 06 2011 11:00PM | | + + + + + | Procedure Note | + + | ColtonCatarino morales Conversion - 01/01/2019 2:[address] WITHOUT CONTRAST INDICATION: | | Near syncope. TECHNIQUE: Axial noncontrast images were obtained. FINDINGS: There is | | atrophy and small vessel disease. 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 No | | mass, mass effect, or midline shift is seen. No intracranial hemorrhage or extra axial | | fluid collections are noted. Bone windows do not demonstrate a depressed skull fracture. | | IMPRESSION:1. Atrophy and small vessel disease.2. 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 | | Electronically signed by Ramses Muhammad MD on Sep 06 2011 11:00PM | |Bone windows do not demonstrate a | |depressed skull fracture. | | | |IMPRESSION: | |1. Atrophy and small vessel disease. | |2. 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 | | | | Electronically signed by Ramses Muhammad MD on Sep 06 2011 11:00PM | + + documented in this encounter Visit Diagnoses + + | Diagnosis | + + | Syncope Syncope and collapse | + + | Near syncope Syncope and collapse | + + | Renal insufficiency Unspecified disorder of kidney and ureter | + + | Syncope and collapse | + + | Rhabdomyolysis | + + documented in this encounter
--- OUTSIDE RECORDS SUMMARY | ~2019-11-10 | XMS | Encounter Summary ---
Demographics + + + | Address | [address] | | | [place] [address] | + + + | Home Phone | | + + + | Preferred Language | Unknown | + + + | Marital Status | | + + + | Zoroastrianism Affiliation | 1028 | + + + | Race | Unknown | + + + | Ethnic Group | Unknown | + + + Author + + + | Author | [facility] | | | and [place] | + + + | Organization | [facility] | | | and [...] [place], [place] | | | | | [address] | | + + + + + | Chloe Malik | ECON | [place], [place] | | | | | [address] | | + + + + + | Ivett Ingram | ECON | Unknown | | + + + + + | Mj Cabrera | ECON | Unknown | | + + + + + | Jessa Cabrera | ECON | [address] | | | | | [place], [place] | | | | | [address] | | + + + + + Care Team Providers + +------+ + | Care Physical Medicine Specialist Name | Role | Phone | + +------+ + | Josr Henriquez | PCP | | | MD | | | + +------+ + Encounter Details +--------+ + + + + | Date | Type | Department | Care Team | Description | +--------+ + + + + | 09/09/ | Imaging | [facility] | Provider, | | | 2018 | Exam | [facility] | MD [address] | | | | | IMAG[facility] [address] | [address] | | | | | [address] | [place] [address] | | | | | [place] [address] | | | | | | [phone] | | | +--------+ + + + [...] CT HEAD WO CONTRAST | Routin | 08/22/2017 | | Results for this | | | e | 12:10 PM | | procedure are in the | | | | PDT | | results section. | + +--------+ + + + documented in this encounter Results CT Head wo Contrast (08/22/2017 12:10 PM PDT) + + | Specimen | + + | | + + + + + | Narrative | Performed At | + + + | External films for comparison only | [facility] | | | | | No results will be in the chart. | | + + + + +---------+ + + | Performing | Address | City/State/Zipcode | Phone Number | | Organization | | | | + +---------+ + + | [facility] | | | | + +---------+ + + documented in this encounter Visit Diagnoses Not on filedocumented in this encounter"
--- OUTSIDE RECORDS SUMMARY | ~2019-11-10 | XMS | Encounter Summary ---
Demographics + + + | Address | [address] | | | [place] [address] | + + + | Home Phone | | + + + | Preferred Language | Unknown | + + + | Marital Status | | + + + | Taoism Affiliation | 1028 | + + + | Race | Unknown | + + + | Ethnic Group | Unknown | + + + Author + + + | Author | [facility] | | | and [place] | + + + | Organization | [facility] | | [...] [place], [place] | | | | | [address] | | + + + + + | Chloe Malik | ECON | [place], [place] | | | | | [address] | | + + + + + | Ivett Ingram | ECON | Unknown | | + + + + + | Mj aCbrera | ECON | Unknown | | + + + + + | Jessa Cabrera | ECON | [address] | | | | | [place], [place] | | | | | [address] | | + + + + + Care Team Providers + +------+ + | Care Pasting Machine Operator Name | Role | Phone | + +------+ + PCP | Unavailable | + +------+ + Encounter Details +--------+ + + + + | Date | Type | Department | Care Team | Description | +--------+ + + + + | 08/20/ | [facility] | [facility] | Monty Caputo, | | | 2010 | Encounter | MED CTR GENER[facility] OP | MD [address] | | | | | CONV DEPT [address] | [place], [place] | | | | | [place], | [address] | | | | | [place] [address] | | | | | | [phone] | | | +--------+ + + + [...] + + documented as of this encounter Miscellaneous Notes Pulmonary Function - Monty Caputo MD - 08/20/2010 1:17 PM PDTDATE: 08/20/2010 PULMONARY FUNCTION TEST SPIROMETRY: The prebronchodilator FVC is 3.38, 81% of predicted. The FEV1 2.0, 60% of pred icted. The FEV1 to FVC ratio is 59%. Following inhalation of albuterol, patient's FEV1 toby to 2.34, 7 1% of pred icted. This represents 340 mL of improvement or 17%. LUNG VOLUMES: The total lung capacity is 6.76, 96% of predicted. The residual volume is 3. 29, 126% o f predicted. DIFFUSION: The uncorrected DLCO is 20.5, 66% of predicted. INTERPRETATION: SPIROMETRY IS CONSISTENT WITH MODERATE AIRFLOW OBSTRUCTION WHICH DECREASE S TO MILD FOLLOWING ALBUTEROL. LUNG VOLUMES SHOW GAS TRAPPING. THERE IS A MILD DIFFUSION AB NORMALITY. NO PRIOR PULMONARY FUNCTION TESTS PERFORMED HERE AT [facility] ARE AVAILABLE FOR COMPARISON. THE PATIENT DID HAVE A PRIOR SPIROMETRY PERFORMED IN [facility] A SIMILAR DEGREE OF AIRFLOW OBSTRUCTION WITH RESPONSE TO BRONCHODILATORS WAS NOTED. DICTATED BY: Monty Caputo MD Pulmonary / Critical Care JOB #: [id number] EXT JOB #:[id number] <Electronicall y Signed by Monty Caputo MD> 08/22/10 0637 documented in this encounter Plan of Treatment Not on filedocumented as of this encounter Visit Diagnoses Not on filedocumented in this encounter"
--- OUTSIDE RECORDS SUMMARY | ~2019-11-10 | XMS | Encounter Summary ---
Demographics + + + | Address | [address] | | | [place] [address] | + + + | Home Phone | | + + + | Preferred Language | Unknown | + + + | Marital Status | | + + + | Gnosticist Affiliation | 1028 | + + + | Race | Unknown | + + + | Ethnic Group | Unknown | + + + Author + + + | Author | [facility] | | | and [place] | + + + | Organization | [facility] | | | [...] [place], [place] | | | | | [address] | | + + + + + | Chloe Malik | ECON | [place], [place] | | | | | [address] | | + + + + + | Ivett Ingram | ECON | Unknown | | + + + + + | Mj Cabrera | ECON | Unknown | | + + + + + | Jessa Cabrera | ECON | [address] | | | | | [place], [place] | | | | | [address] | | + + + + + Care Team Providers + +------+ + | Care Head Custodian Name | Role | Phone | + [...] | | [address] | [place] [address] | | | | | [place] [address] | | | | | | [phone] | | | +--------+ + + + [...] CT HEAD WO CONTRAST | Routin | 08/21/2017 | | Results for this | | | e | 4:30 PM | | procedure are in the | | | | PDT | | results section. | + +--------+ + + + documented in this encounter Results CT Head wo Contrast (08/21/2017 4:30 PM PDT) + + | Specimen | [...]
--- OUTSIDE RECORDS SUMMARY | ~2019-11-10 | XMS | Encounter Summary ---
Demographics + + + | Address | [address] | | | [place] [address] | + + + | Home Phone | | + + + | Preferred Language | Unknown | + + + | Marital Status | | + + + | Holiness Affiliation | 1028 | + + + | Race | Unknown | + + + | Ethnic Group | Unknown | + + + Author + + + | Author | [facility] | | | and [place] | + + + | Organization | [facility] | | | and [...] [place], [place] | | | | | [address] | | + + + + + | Chloe Malik | ECON | [place], [place] | | | | | [address] | | + + + + + | Ivett Ingram | ECON | Unknown | | + + + + + | Mj Cabrera | ECON | Unknown | | + + + + + | Jessa Cabrera | ECON | [address] | | | | | [place], [place] | | | | | [address] | | + + + + + Care Team Providers + +------+ + | Care Engineering And Scientific Programmer Name | Role | Phone | + +------+ + | Monty Lentz MD | PCP | | + +------+ + Reason for Visit + + + | Reason | Comments | + + + | Back Pain | low back pain with numbing/swelling in bilateral feet | + + + Evaluate & Treat (Routine) +--------+--------+ + + + + | Status | Reason | Specialty | Diagnoses / | Referred By | Referred To | | | | | Procedures | Contact | Contact | +--------+--------+ + + + + | Closed | | Physical | Diagnoses | Azra, | Bárbara, | | | | Medicine and | Low back | Ray | William Mccarty MD | | | | Rehabilitatio | pain | MD Juancho | [address] | | | | n | | [address] | [facility] | | | | | | [address] | [place], [place] | | | | | | [place] [address] | [address] Phone: | | | | | | [place] | [phone] | | | | | | [address] | Fax: | | | | | | Phone: | [phone] | | | | | | [phone] | | | | | | | Fax: | | | | | | | [phone] | | +--------+--------+ + + + + Encounter Details +--------+---------+ + + + | Date | Type | Department | Care Team | Description | +--------+---------+ + + + | 08/02/ | Office | [facility] | William Granger | Bilateral lumbar | | 2014 | Visit | PH[address]SIATRY [address] | TMD [address] | radiculopathy | | | | [address] | [facility] [place] | (Primary Dx); DDD | | | | [place] | [address] | (degenerative disc | | | | [address] | | disease), lumbar; | | | | [phone] | Favian, | S/P lumbar fusion | | | | | KATYA Colin [address] | | | | | | [address], [address] | | | | | | [place] [address] | | | | | | [phone] | | | | | | | | +--------+---------+ + + + Social History [...] + + + | Blood Pressure | 135/88 | 08/02/2014 10:55 AM | | | | | PDT | | + + + + + | Pulse | 70 | 08/02/2014 10:55 AM | | | | | PDT [...] Weight | 81.6 kg (180 lb) | 08/02/2014 10:55 AM | | | | | PDT | | + + + + + | Height | 177.8 cm (5' 10") | 08/02/2014 10:55 AM | | | | | PDT | | + + + + + | Body Mass Index | 25.83 | 08/02/2014 10:55 AM | | | | | PDT | | + + + + + documented in this encounter Patient Instructions Patient Instructions Marbella Syed, Master of Arts - 08/02/2014 11:52 AM PDT Follow-up at the hospital thirty minutes [...] of the procedure you must provide a grain combine driver to take you home. For all procedur es it is recommended that someone else drive you home. documented in this encounter Progress Notes William Granger MD - 08/02/2014 8:01 AM PDT CHIEF COMPLAINT: Chief Complaint Patient presents with Back Pain low back pain with numbing/swelling in bilateral feet HISTORY OF PRESENT ILLNESS: The patient is a 79 y.o. male being seen today at the request of Dr. Ray Oquendo from [facility] in [facility] for complaints of low ba ck, buttock pain as well as foot and leg pain that began many years ago. He has an extensiv e history of chronic back problems and reports to me that he had a work related injury many years ago and he has since had 11 lumbar spine surgeries. He does report that recently he received caudal epidural steroid injections from doctor Oquendo and he reports that he did rec eive benefit. He is here now as he is looking for someone who can do similar procedures dereje ser to his home in [place]. His symptoms worsen with bending over, lifting, twisting, prolonged walking. His symptoms improve with nothing in particular other than the steroid injections as above. He also takes Aleve which may help a little. He takes gabapentin but only at night. He d oes report that most of the time he sleeps well but he is not sure that the gabapentin helps much. Since the symptoms began, he has noticed that symptoms have been staying the same. He descr ibes the pain as a constant aching feeling. He rates the pain as moderate. He does have burning in both feet which is fairly constant. The patient does describe numbness or abnormal sensation of both feet. He does report wea kness of the legs and reports balance issues. He does not have bowel and bladder dysfunctio n. He does not have saddle anesthesia. Treatments for these complaints have included prior caudal epidural steroid injections, phy sical therapy and a TENS unit which did not help much. He has also tried multiple medicatio ns and the 11 lumbar surgeries as above. Patient's medications, allergies, past medical, surgical, social and family histories were reviewed and updated as appropriate. PAST MEDICAL HISTORY: Past Medical History Diagnosis Date Depression Hypertension Thyroid disease Neuropathy feet Lumbar radiculopathy 08/02/2014 DDD (degenerative disc disease), lumbar 08/02/2014 S/P lumbar fusion 08/02/2014 PAST SURGICAL HISTORY: History reviewed. No pertinent past surgical history. CURRENT MEDICATIONS: Current Outpatient Prescriptions Medication Sig Dispense Refill aspirin (ASPIRIN LOW DOSE) 81 MG EC tablet Take 81 mg by mouth Daily. cabergoline (DOSTINEX) 0.5 mg tablet donepezil (ARICEPT) 5 mg tablet Take 5 mg by mouth nightly. fesoterodine fumarate (TOVIAZ) 8 MG TB24 ER tablet Take 8 mg by mouth Daily. gabapentin (NEURONTIN) 300 mg capsule Take 300 mg by mouth 3 times daily. HYDROcodone-acetaminophen (NORCO) 10-325 mg per tablet Take [...] Reactions Cyclobenzaprine Fentanyl Fluoxetine Morphine Sulfate Oxycodone SOCIAL HISTORY: The patient reports that he quit smoking about 12 years ago. He does not have any smokeles s tobacco history on file. He reports that he drinks alcohol. He reports that he does not us e illicit drugs. FAMILY HISTORY: Family History Problem Relation Age of Onset Alcohol abuse Mother Alcohol abuse Father Heart disease Father High blood pressure Father Stroke Father REVIEW OF SYSTEMS: GENERALLY: No fever, chills, no night sweats, no weight gain, no weight loss, no anemia, no fatigue. EYES: + eye problems, no impaired sight, + eye glasses/contacts, no eye injury, no double vision, no transient blindness. EARS, NOSE, THROAT and MOUTH: No change in sense taste/smell, + hearing difficulty, no rin ging in ears, no drainage from ears, no ear injury, no dizziness, no voice change, no diffic ulty swallowing, + snoring, + sleep apnea/CPAP, + sinus trouble, + dental work. NEUROMUSCULAR: No numbness/pain of arms, no numbness/pain of legs, no awake with numbness/ pain, no weakness, no muscle aching, no coordination difficulty, + change in walk, no head i njury, no neck injury, + back injury, no pain in neck, + pain in back, no stroke, no faintin g spells, no loss of consciousness, no tremor/shaking, no seizures, no headaches, no migrain es, + memory loss, no speech difficulty, no confusion, no numbness of face. PSYCHIATRIC: + depression, no difficulty sleeping, + anxiety, no bipolar disorder. CARDIOVASCULAR/PULMONARY: No heart attack, no heart murmur, no fluttering heart, no shortn ess of breath, no cough, no Tuberculosis, no chest pain, + swelling ankles, no bloody coughi ng, no asthma, no COPD/emphysema. GASTROINTESTINAL: No bowel disease, no nausea/vomiting, no rectal bleeding/hemorroids, no constipation, no fecal/stool incontinence, no liver/gallbladder disease, no abdominal pain. GENITOURINARY: + frequent urination, + painful/difficult urination, no urinary incontinence , no bladder problems. ENDOCRINE: No diabetes, + thyroid disease, no osteoporosis/osteopenia, no drainage from marian asts. INTEGUMENTARY/SKIN: No lump in breasts, no skin disease or skin changes, no rash/itch. HEMATOLOGIC: No enlarged lymph nodes, no easy or unusual bleeding, no cancer. RHEUMATOLOGIC: + joint pain/arthritis, no rheumatoid arthritis PHYSICAL EXAMINATION: Filed Vitals: 08/02/14 1055 BP: 135/88 Pulse: 70 PainSc: 4 PainLoc: Back Body mass index is 25.83 [...] has no apparent deficits with short or rodent exterminator memory. He has appropriate fund of knowledge [...] tenderness to palpation over the greater tr ochanters or sacral sulci. The patient localized the majority of the pain to the L5-S1 leve l. Lumbar facet loading was negative but hard to assess given his stiffness. Strength test ing showed 5/5 strength throughout the lower extremities. The patient was able to heel and toe walk but with some difficulty due to balance issues. There was no redness, effusion, wa rmth or joint line tenderness in the knees [...] L4-L5 consistent with chronic adhesive arachnoiditis. ASSESSMENT: Encounter Diagnoses Name Primary? Bilateral lumbar radiculopathy Yes DDD (degenerative disc disease), lumbar S/P lumbar fusion PLAN: 1. The patient has an extensive history of back surgery and has continued pain in the back and legs. The pain is likely multifactorial and may be consistent with failed back syndrome , chronic radiculopathy and arachnoiditis. He has had some benefit with epidural steroid in jections and I offered to repeat the caudal injection which is what he was given in the past by Dr. Oquendo. I did 2. The patient states he is taking 8 tablets of gabapentin by mouth at bedtime each day. T his would seem to me a very odd way for gabapentin to be prescribed. He was advised to read the label and directions and contact our office to let us know if that is truly how it is pr escribed. If it is I would suggest a change to 600 mg tid. 3. We did discuss a possible spinal cord stimulator trial as another potential option in th e future if nothing else is helping. ELECTRONICALLY EDITED AND SIGNED BY: William Granger MD, 08/04/2014 Scribed by: Marbella Syed MA for Dr. William Granger on 08/02/2014 documented in this encounter Plan of Treatment Not on filedocumented as of this encounter Results FL JAI Lumbar Sacral Interlaminar (08/15/2014 3:18 PM PDT) + + | Specimen | + + | | + + + + + | Narrative | Performed At | + + + | 08/15/2014 LUMBAR INTERLAMINAR EPIDURAL STEROID INJECTION | [facility] | | CLINICAL HISTORY: ICD-9 CODE 724.4 LUMBAR RADICULOPATHY Dennis Okeefe | [facility] | | Deborah presents to the fluoroscopy suite for a | [facility] | | fluoroscopically-guided caudal epidural steroid injection as part of | - IMAGING | | conservative management for chronic pain with lumbar radiculopathy | | | and degenerative disk disease. After informed consent was obtained, | | | the patient lay in the prone position on the fluoroscopy table. The | | | area was identified under fluoroscopic guidance. The area was | | | prepped and draped in sterile fashion. A 25-gauge, 1.5-inch needle | | | was inserted into this region and approximately 3 mL of buffered 1% | | | lidocaine was infused. Then a 22-gauge epidural needle was advanced | | | into the epidural space using the caudal approach. Confirmation | | | into the epidural space was obtained with loss of resistance, as | | | well as infusion of approximately 1 mL of iodinated contrast which | | | showed epidural flow. Then, a combination of 2 mL of 6 mg/mL | | | Celestone, 2 mL of 1% lidocaine and 6 mL of normal saline and was | | | infused. The patient tolerated the procedure well without | | | complications. Pre- and post-procedure blood pressures were stable. | | | The patient was given verbal as well as written follow-up | | | instructions. Prior to the start of the procedure, the following | | | were performed and verified, including correct patient identity, | | | correct site/side marked and visible, agreement on the procedure to | | | be done, correct patient positioning and an accurate procedure | | | consent form. Any safety precautions based on clinical history | | | and/or medication use have been addressed. I personally performed | | | the procedure above. Estimated blood loss: Minimal | | | Complications: None Findings: As expected Anesthesia: Local 1% | | | Lidocaine | | + + + + + + + + | Performing | Address | City/State/Zipcode | Phone Number | | Organization | | | | + + + + + | [facility] | [address] | [place], [place] | [phone] | | [facility] | | [address] | | | - IMAGING | | | | + + + + + documented in this encounter Visit Diagnoses + + | Diagnosis | + + | Bilateral lumbar radiculopathy - Primary | + + | DDD (degenerative disc disease), lumbar Degeneration of lumbar or lumbosacral | | intervertebral disc | + + | S/P lumbar fusion Arthrodesis status | + + documented in this encounter
--- OUTSIDE RECORDS SUMMARY | ~2019-11-10 | XMS | Encounter Summary ---
Demographics + + + | Address | [address] | | | [place] [address] | + + + | Home Phone | | + + + | Preferred Language | Unknown | + + + | Marital Status | | + + + | Rastafarian Affiliation | 1028 | + + + | Race | Unknown | + + + | Ethnic Group | Unknown | + + + Author + + + | Author | [facility] | | | and [place] | + + + | Organization | [facility] | | | [...] [place], [place] | | | | | [address] | | + + + + + | Chloe Malik | ECON | [place], [place] | | | | | [address] | | + + + + + | Ivett Ingram | ECON | Unknown | | + + + + + | Mj Cabrera | ECON | Unknown | | + + + + + | Jessa Cabrera | ECON | [address] | | | | | [place], [place] | | | | | [address] | | + + + + + Care Team Providers + +------+ + | Care Recovery Manager Name | Role | Phone | + +------+ + | Monty Lentz MD | PCP | | + +------+ + Reason for Visit +--------+--------+ + | Reason | Onset | Comments | | | Date | | +--------+--------+ + | Other | 08/03/ | discuss gabapentin | | | 2015 | | +--------+--------+ + Encounter Details +--------+ + + + + | Date | Type | Department | Care Team | Description | +--------+ + + + + | 08/03/ | Telephone | [facility] [place] | Marbella Syed, | Other (discuss | | 2015 | | 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 Granger.Electr onically signed by Marbella Syed Master of Office Center at 08/03/2014 4:50 PM PDTTelephone [place] - Marbella Syed Master of Office Center - 08/03/2014 4:47 PM PDT----- Message from William Granger MD sent at 08/03/2014 12:19 PDT ----- I recommend that he switch to 600 mg 3 times daily. William ----- Message ----- From: Marbella Syed MA Sent: 08/02/2014 15:17 To: MD Dr. Bárbara Ordaz- Patient called to inform you that his Gabapentin in prescribed by his PCP as 300 mg, taking 8 capsules by mouth at nighttime. Marbella doyani parsons in this encounter Plan of Treatment Not on filedocumented as of this encounter Visit Diagnoses Not on filedocumented in this encounter"
--- OUTSIDE RECORDS SUMMARY | ~2019-11-10 | XMS | Encounter Summary ---
Demographics + + + | Address | [address] | | | [place] [address] | + + + | Home Phone | | + + + | Preferred Language | Unknown | + + + | Marital Status | | + + + | Methodist Affiliation | 1028 | + + + | Race | Unknown | + + + | Ethnic Group | Unknown | + + + Author + + + | Author | [facility] | | | and [place] | + + + | Organization | [facility] | | | [...] [place], [place] | | | | | [address] | | + + + + + | Chloe Malik | ECON | [place], [place] | | | | | [address] | | + + + + + | Ivett Ingram | ECON | Unknown | | + + + + + | Mj Cabrera | ECON | Unknown | | + + + + + | Jessa Cabrera | ECON | [address] | | | | | [place], [place] | | | | | [address] | | + + + + + Care Team Providers + +------+ + | Care Warehouse Engineer Name | Role | Phone | + +------+ + PCP | Unavailable | + +------+ + Encounter Details +--------+ + + + + | Date | Type | Department | Care Team | Description | +--------+ + + + + | 10/18/ | [facility] | [facility] | Monty Caputo, | | | 2010 | Encounter | MED CTR XRAY [address] | MD [address] | | | | | [place] | [place] | | | | | [place] [address] | [address] | | | | | [phone] | | | +--------+ + + + [...] + +--------+ + + + | FL CHEST 2 VW W | | 10/18/2010 | | Results for this | | FLUORO | | 1:08 PM | | procedure are in the | | | | PDT | | results section. | + +--------+ + + + documented in this encounter Results FL Chest 2 Vw w Fluoro (10/18/2010 1:08 PM PDT) + + | Specimen | + + | | + + + + + | Narrative | Performed At | + + + | [facility] | [facility] | | [address] [facility] | [facility] | | CHEST FLUOROSCOPY: 10/18/2010 | [facility] | | CLINICAL HISTORY: COUGH AND DYSPNEA. COMPARISON: Chest | | | radiograph dated 07/30/2010. FINDINGS: Chest fluoroscopy was | | | performed in evaluating a diaphragmatic excursion. Both supine and u | | | pright, there is visible diaphragmatic excursion both on the left and | | | right. The right seems to be so mewhat less than the left. No visible | | | paradoxical movement with inhalation or sniff test. IMPRESSION: | | | 1. VISIBLE RIGHT DIAPHRAGMATIC EXCURSION THAT APPEARS SLIGHTLY LESS | | | THAN THE LEFT SUGGESTING POSSIBIL ITY OF A PARTIAL PARALYZATION. | | | Dictated Date/Time: 10/18/2010 14:42 Transcribed Date/Time: | | | 10/18/2010 18:19 Cut Lace Machine Operator: <Electronically Signed | | | by Neftali Milian MD> 10/18/102200 | | + + + + + | Procedure Note | + + | [place], Rad Conversion - 06/17/2013 3:07 PM [facility] | | Diagnostic Imaging Department [address] [place] [address] | | CHEST FLUOROSCOPY: 10/18/2010 CLINICAL HISTORY: COUGH | | AND DYSPNEA. COMPARISON: Chest radiograph dated 07/30/2010. FINDINGS: Chest fluoroscopy | | was performed in evaluating a diaphragmatic excursion. Both supine and upright, there | | is visible diaphragmatic excursion both on the left and right. The right seems to be | | somewhat less than the left. No visible paradoxical movement with inhalation or sniff | | test. IMPRESSION: 1. VISIBLE RIGHT DIAPHRAGMATIC EXCURSION THAT APPEARS SLIGHTLY LESS | | THAN THE LEFT SUGGESTING POSSIBILITY OF A PARTIAL PARALYZATION. Dictated Date/Time: | | 10/18/2010 14:42Transcribed Date/Time: 10/18/2010 18:19Transcriptionist: | | HZ<Electronically Signed by Neftali Milian MD> 10/18/10 2201 | | | |FINDINGS: Chest fluoroscopy was performed in evaluating a diaphragmatic excursion. Both mohr pine and u | |pright, there is visible diaphragmatic excursion both on the left and right. The right seem s to be so | |mewhat less than the left. No visible paradoxical movement with inhalation or sniff test. | | | |IMPRESSION: | |1. VISIBLE RIGHT DIAPHRAGMATIC EXCURSION THAT APPEARS SLIGHTLY LESS THAN THE LEFT SUGGESTIN G POSSIBIL | |ITY OF A PARTIAL PARALYZATION. | | | |Dictated Date/Time: 10/18/2010 14:42 | |Transcribed Date/Time: 10/18/2010 18:19 | |Cut Lace Machine Operator: | |<Electronically Signed by Neftali Milian MD> 10/18/102200 | + + + +---------+ + + | Performing | Address | City/State/Zipcode | Phone Number | | Organization | | | | + +---------+ + + | [place] | | | | | [facility] | | | | + +---------+ + + documented in this encounter Visit Diagnoses Not on filedocumented in this encounter"
--- OUTSIDE RECORDS SUMMARY | ~2019-11-10 | XMS | Encounter Summary ---
Demographics + + + | Address | [address] | | | [place] [address] | + + + | Home Phone | | + + + | Preferred Language | Unknown | + + + | Marital Status | | + + + | Taoist Affiliation | 1028 | + + + | Race | Unknown | + + + | Ethnic Group | Unknown | + + + Author + + + | Author | [facility] | | | and [place] | + + + | Organization | [facility] | | | and [...] [place], [place] | | | | | [address] | | + + + + + | Chloe Malik | ECON | [place], [place] | | | | | [address] | | + + + + + | Ivett Ingram | ECON | Unknown | | + + + + + | Mj Cabrera | ECON | Unknown | | + + + + + | Jessa Cabrera | ECON | [address] | | | | | [place], [place] | | | | | [address] | | + + + + + Care Team Providers + +------+ + | Care Teasel Gig Operator Name | Role | Phone | + +------+ + PCP | Unavailable | + +------+ + Encounter Details +--------+ + + + + | Date | Type | Department | Care Team | Description | +--------+ + + + + | 10/08/ | [facility] | [facility] | Mitesh Sandoval | | | 1999 | Encounter | MED CTR SLEEP | MD [place] [address] | | | | | CENTER [address] | [place] | | | | | [place] | [place] [address] | | | | | [address] | [phone] | | | | | [phone] | | | +--------+ + + + [...]
--- OUTSIDE RECORDS SUMMARY | ~2019-11-10 | XMS | Encounter Summary ---
Demographics + + + | Address | [address] | | | [place] [address] | + + + | Home Phone | | + + + | Preferred Language | Unknown | + + + | Marital Status | | + + + | Shinto Affiliation | 1028 | + + + | Race | Unknown | + + + | Ethnic Group | Unknown | + + + Author + + + | Author | [facility] | | | and [place] | + + + | Organization | [facility] | | | and [...] [place], [place] | | | | | [address] | | + + + + + | Chloe Malik | ECON | [place], [place] | | | | | [address] | | + + + + + | Ivett Ingram | ECON | Unknown | | + + + + + | Mj Cabrera | ECON | Unknown | | + + + + + | Jessa Cabrera | ECON | [address] | | | | | [place], [place] | | | | | [address] | | + + + + + Care Team Providers + +------+ + | Care Float Remover Name | Role | Phone | + +------+ + PCP | Unavailable | + +------+ + Encounter Details +--------+ + + + + | Date | Type | Department | Care Team | Description | +--------+ + + + + | 10/08/ | [facility] | [facility] | Mitesh Sandoval | | | 1999 | Encounter | MED CTR SLEEP | MD [place] | | | | | CENTER [address] | [place] | | | | | [place] | [place] [address] | | | | | [address] | [phone] | | | | | [phone] | | | +--------+ + + + [...]
--- OUTSIDE RECORDS SUMMARY | ~2019-11-10 | XMS | Encounter Summary ---
Demographics + + + | Address | [address] | | | [place] [address] | + + + | Home Phone | | + + + | Preferred Language | Unknown | + + + | Marital Status | | + + + | Denominational Affiliation | 1028 | + + + | Race | Unknown | + + + | Ethnic Group | Unknown | + + + Author + + + | Author | [facility] | | | and [place] | + + + | Organization | [facility] | | [...] [place], [place] | | | | | [address] | | + + + + + | Chloe Malik | ECON | [place], [place] | | | | | [address] | | + + + + + | Ivett Ingram | ECON | Unknown | | + + + + + | Mj Cabrera | ECON | Unknown | | + + + + + | Jessa Cabrera | ECON | [address] | | | | | [place], [place] | | | | | [address] | | + + + + + Care Team Providers + +------+ + | Care Parts Driver Name | Role | Phone | + +------+ + | Monty Lentz MD | PCP | | + +------+ + Reason for Visit + +--------+ + | Reason | Onset | Comments | | | Date | | + +--------+ + | Medication Refill | 09/13/ | | | | 2014 | | + +--------+ + Encounter Details +--------+ + + + + | Date | Type | Department | Care Team | Description | +--------+ + + + + | 09/13/ | Telephone | [facility] | William Granger | Medication Refill | | 2014 | | [address]SI[address]RY [address] | | | | [address] | [address] [place], [place] | | | | | [place], [place] | [address] | | | | | [address] | | | | | | [phone] | | | +--------+ + + + [...] this encounter Miscellaneous Notes Telephone Encounter - William Granger MD - 09/13/2014 5:42 PM PDTPrescription complete d and sent to Gayatri Vaughan. elephone Encounter - Holli Aldrich - 09/13/2014 1:39 PM PDTPatient called stating he will be out of his gabapentin (NEURONTIN) 300 mg capsule in about a week and a half so he i s needing a refill. [facility] [place] Please call anu alvarado when complete. documented in this encounter Plan of Treatment Not on filedocumented as of this encounter Visit Diagnoses Not on filedocumented in this encounter"
--- OUTSIDE RECORDS SUMMARY | ~2019-11-10 | XMS | Encounter Summary ---
Demographics + + + | Address | [address] | | | [place] [address] | + + + | Home Phone | | + + + | Preferred Language | Unknown | + + + | Marital Status | | + + + | Moravian Affiliation | 1028 | + + + | Race | Unknown | + + + | Ethnic Group | Unknown | + + + Author + + + | Author | [facility] | | | and [place] | + + + | Organization | [facility] | | | [...] [place], [place] | | | | | [address] | | + + + + + | Chloe Malik | ECON | [place], [place] | | | | | [address] | | + + + + + | Ivett Ingram | ECON | Unknown | | + + + + + | Mj Cabrera | ECON | Unknown | | + + + + + | Jessa Cabrera | ECON | [address] | | | | | [place], [place] | | | | | [address] | | + + + + + Care Team Providers + +------+ + | Care Target Protection Specialist Name | Role | Phone | + +------+ + PCP | Unavailable | + +------+ + Encounter Details +--------+ + + + + | Date | Type | Department | Care Team | Description | +--------+ + + + + | 09/12/ | [facility] | [facility] | Mitesh Sandoval | | | 1996 | Encounter | MED CTR SLEEP | MD [place] [address] | | | | | CENTER [address] | [place] | | | | | [place] | [place] [address] | | | | | [address] | [phone] | | | | | [phone] | | | +--------+ + + + [...]
--- OUTSIDE RECORDS SUMMARY | ~2019-11-10 | XMS | Encounter Summary ---
Demographics + + + | Address | [address] | | | [place] [address] | + + + | Home Phone | | + + + | Preferred Language | Unknown | + + + | Marital Status | | + + + | Voodoo Affiliation | 1028 | + + + | Race | Unknown | + + + | Ethnic Group | Unknown | + + + Author + + + | Author | [facility] | | | and [place] | + + + | Organization | [facility] | | | [...] [place], [place] | | | | | [address] | | + + + + + | Chloe Malik | ECON | [place], [place] | | | | | [address] | | + + + + + | Ivett Ingram | ECON | Unknown | | + + + + + | Mj Cabrera | ECON | Unknown | | + + + + + | Jessa Cabrera | ECON | [address] | | | | | [place], [place] | | | | | [address] | | + + + + + Care Team Providers + +------+ + | Care Etl Architect Name | Role | Phone | + +------+ + PCP | Unavailable | + +------+ + Encounter Details +--------+ + + + + | Date | Type | Department | Care Team | Description | +--------+ + + + + | 01/21/ | Abstract | [place] [facility] | [facility] | | | 2011 | | Conversion Location | [address] | | | | | [address] | | | | | | [place], [place] | | | | | | [address] | | | | | | [phone] | | | +--------+ + + + [...] + + + | Blood Pressure | 118/70 | 07/10/2011 12:00 AM | | | | | PST | | + + + + + | Pulse | - | - | | + [...] + + + + | Weight | 84.8 kg (187 lb) | 07/10/2011 12:00 AM | | | | | PST | | + + + + + | Height | 177.8 cm (5' 10") | 07/31/2010 12:00 AM | | | | | PDT | | + + + + + | Body Mass Index | 26.83 | 07/31/2010 12:00 AM | | | | | PDT | | + + + + + documented in this encounter Plan of Treatment Not on filedocumented as of this encounter Visit Diagnoses Not on filedocumented in this encounter
--- OUTSIDE RECORDS SUMMARY | ~2019-11-10 | XMS | Encounter Summary ---
Demographics + + + | Address | [address] | | | [place] [address] | + + + | Home Phone | | + + + | Preferred Language | Unknown | + + + | Marital Status | | + + + | Sikhism Affiliation | 1028 | + + + | Race | Unknown | + + + | Ethnic Group | Unknown | + + + Author + + + | Author | [facility] | | | and [place] | + + + | Organization | [facility] | | | and [place] | + + + | Address | Unknown | + + + | Phone | Unavailable | + + + Support + + + + + | Name | Relationship | Address | Phone | + + + + + | Brie Castle | ECON | [address] | | | | | [place], [place] | | | | | [address] | | + + + + + | Chloe Malik | ECON | [place], [place] | | | | | [address] | | + + + + + | Ivett Ingram | ECON | Unknown | | + + + + + | Mj Castle | ECON | Unknown | | + + + + + | Jessa Castle | ECON | [address] | | | | | [place], [place] | | | | | [address] | | + + + + + Care Team Providers + +------+ + | Care Teacher Home Therapy Name | Role | Phone | + +------+ + | Josr Henriquez | PCP | | | MD | | | + +------+ + Encounter Details +--------+ + + + + | Date | Type | Department | Care Team | Description | +--------+ + + + + | 08/25/ | Orders Only | [facility] | Jak Parkinson V, | | | 2018 | | CONVERSION [address] | MD [address] | | | | | [address] | [address] [place], [place] | | | | | [place], [place] | [address] | | | | | [address] | | | | | | [phone] | | | +--------+ + + + [...] + +--------+ + + + | ECHO INTERPRETATION | Routin | 08/25/2017 | | Results for this | | OF OUTSIDE FILMS | e | 12:19 PM | | procedure are in the | | | | PDT | | results section. | + +--------+ + + + documented in this encounter Results ECHO Interpretation of Outside Films (08/25/2017 12:19 PM PDT) + + | Specimen | + + | | + + + + + | Impressions | Performed At | + + + | 1. This was a technically difficult study with suboptimal views. 2. | | | Overall left ventricular systolic function is normal with, an EF | | | between 65 - 70 %. 3. The diastolic filling pattern indicates | | | impaired relaxation consistent with mild dysfunction (Grade I). 4. | | | The RV was not well visualized, buton limited views, it appears to be | | | normal in size, with normal systolic function. 5. Mild aortic | | | stenosis with peak/mean pressure gradient of 10.75mmHg / 5.87mmHg, the | | | aortic valve area by continuity equation is 1.6cm . | | + + + + + + | Narrative | Performed At | + + + | Patient Name: JOSEPH CASTLE Date of : 1935 | | | Performing Physician: COLBY ISAACS MD | | | | | | INDICATIONS Stroke CONCLUSIONS 1. This | | | was a technically difficult study with suboptimal views. 2. Overall | | | left ventricular systolic function is normal with, an EF between 65 - | | | 70 %. 3. The diastolic filling pattern indicates impaired relaxation | | | consistent with mild dysfunction (Grade I). 4. The RV was not well | | | visualized, buton limited views, it appears to be normal in size, with | | | normal systolic function. 5. Mild aortic stenosis with peak/mean | | | pressure gradient of 10.75mmHg / 5.87mmHg, the aortic valve area by | | | continuity equation is 1.6cm . FINDINGS -------- ECG | | | rhythm: Sinus rhythm. Study: A 2-dimensional transthoracic | | | echocardiogram with m-mode, spectral and color flow Doppler was | | | perfomed. Study: This was a technically difficult study with | | | suboptimal views. Parasternal views were from a low, off-axis | | | window. Left Ventricle: Overall left ventricular systolic function is | | | normal with, an EF between 65 - 70 %. Left Ventricle: The left | | | ventricle cavity size is normal. Left Ventricle: Left ventricular | | | wall thickness is normal. Left Ventricle: No regional wall motion | | | abnormalities. Left Ventricle: The diastolic filling pattern | | | indicates impaired relaxation consistent with mild dysfunction (Grade | | | I). Right Ventricle: The RV was not well visualized, buton limited | | | views, it appears to be normal in size, with normal systolic function. | | | Left Atrium: The left atrium was not well visualized. Right Atrium: | | | The right atrium was not well visualized. Aortic Valve: The aortic | | | valve appears to be trileaflet. Aortic Valve: The aortic valve is | | | moderately calcified. Aortic Valve: There is no evidence of aortic | | | regurgitation. Aortic Valve: Mild aortic stenosis with peak/mean | | | pressure gradient of 10.75mmHg / 5.87mmHg, the aortic valve area by | | | continuity equation is 1.6cm . Aortic Valve: The maximum | | | velocity across the aortic valve is 1.64m/s Mitral Valve: The mitral | | | valve is normal. Mitral Valve: There is trace mitral regurgitation. | | | Tricuspid Valve: The tricuspid valve was not well visualized. | | | Tricuspid Valve: Pulmonary artery systolic pressure could not be | | | assessed due to the absence of adequate TR jet. Pulmonic Valve: The | | | pulmonic valve was not well visualized. Pericardium: There is no | | | pericardial effusion. IVC/Hepatic Veins: The IVC was not well | | | visualized. Aorta: The aortic root, ascending aorta and aortic arch | | | are normal. Mass: No mass visualized Thrombus: No clot visualized | | | Thrombus: No vegetation visualized. Septum: No ASD observed. Septum: | | | No VSD observed. MEASUREMENTS Ao Diam: 3.64 cm | | | LA Diam: 3.70 cm EDV(Teich): 73.95 ml IVSd: 0.99 cm | | | LVIDd: 4.09 cm LVPWd: 0.90 cm LVOT Area: 3.38 cm2 LVOT | | | Diam: 2.07 cm %FS: 27.13 % EF(Teich): 53.32 % ESV(Teich): | | | 34.51 ml LVIDs: 2.98 cm SV(Teich): 39.44 ml Ao Diam SVals: | | | 3.57 cm LVEF MOD A2C: 62.84 % SV MOD A2C: 39.38 ml LVEF | | | MOD A4C: 69.04 % SV MOD A4C: 46.90 ml EF Biplane: 66.43 % | | | LVEDV MOD BP: 65.75 ml LVESV MOD BP: 22.06 ml LVEDV MOD A2C: | | | 62.67 ml LVLd A2C: 7.25 cm LVEDV MOD A4C: 67.93 ml LVLd | | | A4C: 7.39 cm LVESV MOD A2C: 23.28 ml LVLs A2C: 6.56 cm | | | LVESV MOD A4C: 21.02 ml LVLs A4C: 6.53 cm LAAs A2C: 15.99 | | | cm2 LAESV A-L A2C: 41.79 ml LALs A2C: 5.19 cm TAPSE: 1.82 | | | cm AV maxP.74 mmHg AV meanP.86 mmHg AV Vmax: 1.63 | | | m/s AV Vmean: 1.13 m/s AV VTI: 28.03 cm QUINTEN Vmax: 1.57 | | | cm2 QUINTEN (VTI): 1.60 cm2 LVOT maxP.31 mmHg LVOT meanPG: | | | 1.23 mmHg LVSI Dopp: 22.94 ml/m2 LVSV Dopp: 44.97 ml LVOT | | | Vmax: 0.76 m/s LVOT Vmean: 0.51 m/s LVOT VTI: 13.28 cm MV | | | A Perez: 0.86 m/s MV Dec Cook: 2.35 m/s2 MV DecT: 257.02 ms | | | MV E Perez: 0.60 m/s MV E/A Ratio: 0.69 MV PHT: 74.53 ms | | | MVA By PHT: 2.95 cm2 Septal e': 0.02 m/s Septal E/e': 21.21 | | | Lateral e': 0.03 m/s Lateral E/e': 15.77 [employer] Cake Decorator: CHRISTOFER | | | Authenticated by: COLBY ISAACS MD Report Date/Time: 08-25-2017 | | | 17:32:20 | | + + + + + | Procedure Note | + + | Catarino Segura Conversion - 12/30/2018 4:05 PM PDT Patient Name: Tex CASTLE | | of : 1935 Performing Physician: COLBY ISAACS, | | INDICATIONS S | | troke CONCLUSIONS 1. This was a technically difficult study with suboptimal | | views.2. Overall left ventricular systolic function is normal with, an EF between 65 - | | 70 %.3. The diastolic filling pattern indicates impaired relaxation consistent with mild | | dysfunction (Grade I).4. The RV was not well visualized, buton limited views, it | | appears to be normal in size, with normal systolic function.5. Mild aortic stenosis with | | peak/mean pressure gradient of 10.75mmHg / 5.87mmHg, the aortic valve area by | | continuity equation is 1.6cm . FINDINGS--------ECG rhythm: Sinus rhythm.Study: A | | 2-dimensional transthoracic echocardiogram with m-mode, spectral and color flow Doppler | | was perfomed.Study: This was a technically difficult study with suboptimal views. | | Parasternal views were from a low, off-axis window.Left Ventricle: Overall left | | ventricular systolic function is normal with, an EF between 65 - 70 %.Left Ventricle: | | The left ventricle cavity size is normal.Left Ventricle: Left ventricular wall thickness | | is normal.Left Ventricle: No regional wall motion abnormalities.Left Ventricle: The | | diastolic filling pattern indicates impaired relaxation consistent with mild dysfunction | | (Grade I).Right Ventricle: The RV was not well visualized, buton limited views, it | | appears to be normal in size, with normal systolic function.Left Atrium: The left atrium | | was not well visualized.Right Atrium: The right atrium was not well visualized.Aortic | | Valve: The aortic valve appears to be trileaflet.Aortic Valve: The aortic valve is | | moderately calcified.Aortic Valve: There is no evidence of aortic regurgitation.Aortic | | Valve: Mild aortic stenosis with peak/mean pressure gradient of 10.75mmHg / 5.87mmHg, | | the aortic valve area by continuity equation is 1.6cm .Aortic Valve: The maximum | | velocity across the aortic valve is 1.64m/sMitral Valve: The mitral valve is | | normal.Mitral Valve: There is trace mitral regurgitation.Tricuspid Valve: The tricuspid | | valve was not well visualized.Tricuspid Valve: Pulmonary artery systolic pressure could | | not be assessed due to the absence of adequate TR jet.Pulmonic Valve: The pulmonic valve | | was not well visualized.Pericardium: There is no pericardial effusion.IVC/Hepatic | | Veins: The IVC was not well visualized.Aorta: The aortic root, ascending aorta and | | aortic arch are normal.Mass: No mass visualizedThrombus: No clot visualizedThrombus: No | | vegetation visualized.Septum: No ASD observed.Septum: No VSD observed. | | MEASUREMENTS Ao Diam: 3.64 cmLA Diam: 3.70 cmEDV(Teich): 73.95 mlIVSd: | | 0.99 cmLVIDd: 4.09 cmLVPWd: 0.90 cmLVOT Area: 3.38 tz7CKES Diam: 2.07 cm%FS: | | 27.13 %EF(Teich): 53.32 %ESV(Teich): 34.51 mlLVIDs: 2.98 cmSV(Teich): 39.44 | | mlAo Diam SVals: 3.57 cmLVEF MOD A2C: 62.84 %SV MOD A2C: 39.38 mlLVEF MOD A4C: | | 69.04 %SV MOD A4C: 46.90 mlEF Biplane: 66.43 %LVEDV MOD BP: 65.75 mlLVESV MOD BP: | | 22.06 mlLVEDV MOD A2C: 62.67 mlLVLd A2C: 7.25 cmLVEDV MOD A4C: 67.93 mlLVLd A4C: | | 7.39 cmLVESV MOD A2C: 23.28 mlLVLs A2C: 6.56 cmLVESV MOD A4C: 21.02 mlLVLs A4C: | | 6.53 cmLAAs A2C: 15.99 [id number] A-L A2C: 41.79 mlLALs A2C: 5.19 cmTAPSE: 1.82 | | cmAV maxP.74 mmHgAV meanP.86 mmHgAV Vmax: 1.63 m/Sagar Vmean: 1.13 m/Sagar | | VTI: 28.03 cmAVA Vmax: 1.57 cm2AVA (VTI): 1.60 [id number] maxP.31 mmHgLVOT | | meanP.23 mmHgLVSI Dopp: 22.94 ml/m2LVSV Dopp: 44.97 mlLVOT Vmax: 0.76 | | m/sLVOT Vmean: 0.51 m/sLVOT VTI: 13.28 cmMV A Perez: 0.86 m/sMV Dec Cook: 2.35 | | m/s2MV DecT: 257.02 msMV E Perez: 0.60 m/sMV E/A Ratio: 0.69MV PHT: 74.53 msMVA By | | PHT: 2.95 [id number] e': 0.02 m/sSeptal E/e': 21.21Lateral e': 0.03 m/sLateral | | E/e': 15.77 [employer] Cake Decorator: YONATANuthenticated by: Kavon BALDWIN Date/Time: | | 08-25-2017 17:32:20 IMPRESSION: 1. This was a technically difficult study with suboptimal | | views.2. Overall left ventricular systolic function is normal with, an EF between 65 - | | 70 %.3. The diastolic filling pattern indicates impaired relaxation consistent with mild | | dysfunction (Grade I).4. The RV was not well visualized, buton limited views, it | | appears to be normal in size, with normal systolic function.5. Mild aortic stenosis with | | peak/mean pressure gradient of 10.75mmHg / 5.87mmHg, the aortic valve area by | | continuity equation is 1.6cm . | |Ao Diam: 3.64 cm | |LA Diam: 3.70 cm | |EDV(Teich): 73.95 ml | |IVSd: 0.99 cm | |LVIDd: 4.09 cm | |LVPWd: 0.90 cm | |LVOT Area: 3.38 cm2 | |LVOT Diam: 2.07 cm | |%FS: 27.13 % | |EF(Teich): 53.32 % | |ESV(Teich): 34.51 ml | |LVIDs: 2.98 cm | |SV(Teich): 39.44 ml | |Ao Diam SVals: 3.57 cm | |LVEF MOD A2C: 62.84 % | |SV MOD A2C: 39.38 ml | |LVEF MOD A4C: 69.04 % | |SV MOD A4C: 46.90 ml | |EF Biplane: 66.43 % | |LVEDV MOD BP: 65.75 ml | |LVESV MOD BP: 22.06 ml | |LVEDV MOD A2C: 62.67 ml | |LVLd A2C: 7.25 cm | |LVEDV MOD A4C: 67.93 ml | |LVLd A4C: 7.39 cm | |LVESV MOD A2C: 23.28 ml | |LVLs A2C: 6.56 cm | |LVESV MOD A4C: 21.02 ml | |LVLs A4C: 6.53 cm | |LAAs A2C: 15.99 cm2 | |LAESV A-L A2C: 41.79 ml | |LALs A2C: 5.19 cm | |TAPSE: 1.82 cm | |AV maxP.74 mmHg | |AV meanP.86 mmHg | |AV Vmax: 1.63 m/s | |AV Vmean: 1.13 m/s | |AV VTI: 28.03 cm | |QUINTEN Vmax: 1.57 cm2 | |QUINTEN (VTI): 1.60 cm2 | |LVOT maxP.31 mmHg | |LVOT meanP.23 mmHg | |LVSI Dopp: 22.94 ml/m2 | |LVSV Dopp: 44.97 ml | |LVOT Vmax: 0.76 m/s | |LVOT Vmean: 0.51 m/s | |LVOT VTI: 13.28 cm | |MV A Perez: 0.86 m/s | |MV Dec Cook: 2.35 m/s2 | |MV DecT: 257.02 ms | |MV E Perez: 0.60 m/s | |MV E/A Ratio: 0.69 | |MV PHT: 74.53 ms | |MVA By PHT: 2.95 cm2 | |Septal e': 0.02 m/s | |Septal E/e': 21.21 | |Lateral e': 0.03 m/s | |Lateral E/e': 15.77 | | | |[employer] Cake Decorator: | |Authenticated by: COLBY ISAACS MD | |Report Date/Time: 08-25-2017 17:32:20 | | | |IMPRESSION: | |1. This was a technically difficult study with suboptimal views. | |2. Overall left ventricular systolic function is normal with, an EF between 65 - 70 %. | |3. The diastolic filling pattern indicates impaired relaxation consistent with mild dysfunc tion (Grade I). | |4. The RV was not well visualized, buton limited views, it appears to be normal in size, wi th normal systolic function. | |5. Mild aortic stenosis with peak/mean pressure gradient of 10.75mmHg / 5.87mmHg, the aorti c valve area by continuity equation is 1.6cm . | + + documented in this encounter Visit Diagnoses Not on filedocumented in this encounter"
--- OUTSIDE RECORDS SUMMARY | ~2019-11-10 | XMS | Encounter Summary ---
Demographics + + + | Address | [address] | | | [place] [address] | + + + | Home Phone | | + + + | Preferred Language | Unknown | + + + | Marital Status | | + + + | Sikh Affiliation | 1028 | + + + | Race | Unknown | + + + | Ethnic Group | Unknown | + + + Author + + + | Author | [facility] | | | and [place] | + + + | Organization | [facility] | | | and [...] [place], [place] | | | | | [address] | | + + + + + | Chloe Malik | ECON | [place], [place] | | | | | [address] | | + + + + + | Ivett Ingram | ECON | Unknown | | + + + + + | Mj Cabrera | ECON | Unknown | | + + + + + | Jessa Cabrera | ECON | [address] | | | | | [place], [place] | | | | | [address] | | + + + + + Care Team Providers + +------+ + | Care Coremaking Supervisor Name | Role | Phone | + +------+ + | Josr Henriquez | PCP | | | MD | | | + +------+ + Reason for Visit + + + | Reason | Comments | + + + | Back Pain | low back pain with a "swollen feeling" in bilateral legs | + + + Encounter Details +--------+---------+ + + + | Date | Type | Department | Care Team | Description | +--------+---------+ + + + | 02/28/ | Office | [facility] | Favian, | Chronic low back | | 2015 | Visit | [address]YSIATRY [address] | [address]ATYA [address] | pain (Primary Dx); | | | | [address] | [address] | DDD (degenerative | | | | [place] | [place] [address] | disc disease), | | | | [address] | [phone] | lumbar; S/P lumbar | | | | [phone] | | fusion; Bilateral | | | | | | sacroiliitis (HCC) | +--------+---------+ + + + Social History [...] + + + | Blood Pressure | 173/109 | 02/28/2015 12:01 PM | | | | | PDT | | + + + + + | Pulse | 64 | 02/28/2015 12:01 PM | | | | | PDT [...] | 81.6 kg (180 lb) | 02/28/2015 12:01 PM | | | | | PDT | | + + + + + | Height | 177.8 cm (5' 10") | 02/28/2015 12:01 PM | | | | | PDT | | + + + + + | Body Mass Index | 25.83 | 02/28/2015 12:01 PM | | | | | PDT | | + + + + + documented in this encounter Patient Instructions Patient Instructions Dixie Ballesteros PA-C - 02/28/2015 12:21 PM PDTYOU MUST LAY LOW 4 DAYS AFTER THE INJECTION Follow-up at the hospital thirty minutes before [...] of the procedure you must provide a driver trainer to take you home. For all procedur es it is recommended that someone else drive you home. documented in this encounter Progress Notes Dixie Ballesteros PA-C - 02/28/2015 12:25 PM PDTFormatting of this note might be differe nt from the original. CHIEF COMPLAINT: Chief Complaint Patient presents with Back Pain low back pain with a "swollen feeling" in bilateral legs HISTORY OF PRESENT ILLNESS: The patient is [...] The patient has been seen for this [facility] plaint in the past, with initial visit started by Dr. Granger. Previously it was recomme nded that he receive bilateral sacroiliac steroid injections, he received this 10/10/2014 and reports 75% relief for about two months. He started to be more active with yard work he was feeling so well. He reports in the last months to 6 weeks his symptoms have worsened. He describes the pain as a constant aching 7/10 feeling. He rates the pain as moderate. His symptoms worsen with bending over, lifting, twisting, prolonged walking. His symptoms improve with nothing in particular other than the steroid injections as above, he does get relief with pushing the lawn machinery mover. He also takes Aleve which may help a littl e. He takes gabapentin but only at night. He did recently try Lyrica over Gabapentin and re ports no improvement of his symptoms, so he is now back on gabapentin 600mg TID. He does have burning in both feet which is fairly constant. The patient does describe numb ness or abnormal sensation of both feet. He does report weakness of the legs and reports b alance issues, he walks with a cane. He does not have bowel and bladder dysfunction. He d oes not have saddle anesthesia. Treatments for these complaints have included prior bilateral SI injections, caudal epidura l steroid injections, physical therapy and a TENS unit which did not help much. He has also tried multiple medications and the 11 lumbar surgeries as above. [...] tablet Take 50 mg by mouth nightly. No current facility-administered medications for this visit. ALLERGIES: Allergies Allergen Reactions Cyclobenzaprine Fentanyl Fluoxetine Morphine Sulfate Oxycodone REVIEW OF SYSTEMS: A multisystem review of system checklist was reviewed with the patient and shows only the p ain and/or parasthesias and other complaints as in HPI. All remaining review of systems was negative. PHYSICAL EXAMINATION: Filed Vitals: 02/28/15 1201 BP: 173/109 Pulse: 64 PainSc: 7 PainLoc: Back Body mass index is 25.83 [...] has no apparent deficits with short or [facility] memory. He has appropriate fund of knowledge [...] ochanters. There was tenderness to the sacral sulci, left greater than right. The patient localized the majority of the pain to the SI joints bilaterally. Lumbar facet loading was n egative but hard to assess given his stiffness. Strength testing showed 5/5 strength throug hout the lower extremities. The patient was able to heel and toe walk but with some difficu lty due to balance issues. There was no redness, effusion, warmth or [...] consistent with chronic adhesive arachnoiditis. ASSESSMENT: 1. Chronic low back pain 2. DDD (degenerative disc disease), lumbar 3. S/P lumbar fusion 4. Bilateral sacroiliitis (HCC) PLAN: 1. The patient has had significant conservative care including medications (NSAIDS and narc otics), PT (multiple sessions over the years) and special needs child caregiver. Unfortunately he contin ues to have significant discomfort. It appears to me that the pain is primarily coming from the SI joints. I did feel that he would be a good candidate for interventional procedures and I offered bilateral SI injections. 2. We discussed failed back syndrome, chronic radiculopathy and arachnoiditis. We discuss ed spinal cord stimulator trail as another potential option in the future if nothing else is helping. He does not want any kind of surgeries or invasive procedures. 3. Medications have been reviewed at today's visit with no changes made at this time. He i s taking 600mg gabapentin TID along with Aleve morning and noontime. ELECTRONICALLY EDITED AND SIGNED BY: Dixie Ballesteros PA-C, 02/28/2015 documented in t his encounter Plan of Treatment Not on filedocumented as of this encounter Results [place] Sacroiliac Injection Right (03/13/2015 2:11 PM PST) + + | Specimen | + + | | + + + + + | Narrative | Performed At | + + + | 03/13/2015 Bilateral Sacroiliac Joint Injection Clinical History: | [facility] | | Sacroiliitis ICD-10 M46.1 Dennis Cabrera presents to the | [facility] | | fluoroscopy suite for fluoroscopically guided bilateral sacroiliac [facility] | | joint steroid injections as [...] + + | Performing | Address | City/State[facility] | Phone Number | | Organization | | | | + + + + + | [facility] | [address] | [place] | [phone] | | [facility] | | [address] | | | - IMAGING | | | | + + + + + [place] Sacroiliac Injection Left (03/13/2015 2:11 PM PST) + + | Specimen | + + | | + + + + + | Narrative | Performed At | + + + | 03/13/2015 Bilateral Sacroiliac Joint Injection Clinical History: | [facility] | | Sacroiliitis ICD-10 M46.1 Dennis Cabrera presents to the | [facility] | | fluoroscopy suite for fluoroscopically guided bilateral sacroiliac [facility] | | joint steroid injections as [...] + + | Performing | Address | City/State/[facility] | Phone Number | | Organization | | | | + + + + + | [facility] | [address] | [place] | [phone] | | [facility] | | [address] | | | - IMAGING | | | | + + + + + documented in this encounter Visit Diagnoses + + | Diagnosis | + + | Chronic low back pain - Primary Lumbago | + + | DDD (degenerative disc disease), lumbar Degeneration of lumbar or lumbosacral | | intervertebral disc | + + | S/P lumbar fusion Arthrodesis status | + + | Bilateral sacroiliitis (HCC) | + + documented in this encounter
--- OUTSIDE RECORDS SUMMARY | ~2019-11-10 | XMS | Encounter Summary ---
Demographics + + + | Address | [address] | | | [place] [address] | + + + | Home Phone | | + + + | Preferred Language | Unknown | + + + | Marital Status | | + + + | Methodist Affiliation | 1028 | + + + | Race | Unknown | + + + | Ethnic Group | Unknown | + + + Author + + + | Author | [facility] | | | and [place] | + + + | Organization | [facility] | | | [...] [place], [place] | | | | | [address] | | + + + + + | Chloe Malik | ECON | [place], [place] | | | | | [address] | | + + + + + | Ivett Ingram | ECON | Unknown | | + + + + + | Mj Cabrera | ECON | Unknown | | + + + + + | Jessa Cabrera | ECON | [address] | | | | | [place], [place] | | | | | [address] | | + + + + + Care Team Providers + +------+ + | Care Systems Mgr Name | Role | Phone | + [...] + + | 09/18/ | Office | [facility] | Favian, | Sacroiliitis, not | | 2014 | Visit | [address]SIATRY [address] | [address] | elsewhere classified | | | | [address] | [address] | ([facility]) (Primary Dx); | | | | [place], [place] | [place] [address] | Chronic low back | | | | [address] | [phone] | pain; DDD | | | | [phone] | | (degenerative disc | | | [...] of the procedure you must provide a guard driver to take you home. For all [...] has no apparent deficits with short or closing coordinator memory. He has appropriate fund of knowledge [...] 720.0 Dennis Cabrera presents to the | [facility] | | fluoroscopy suite for fluoroscopically guided bilateral sacroiliac [facility] | | joint steroid injections as part [...] + | [facility] | [address] | [place], [place] | [phone] | | [facility] | | [address] | | | - IMAGING | | [...] 720.0 Dennis Cabrera presents to the | [facility] | | fluoroscopy suite for fluoroscopically guided bilateral sacroiliac [facility] | | joint steroid injections as part [...] + + | Performing | Address | City/State/[facility] | Phone Number | | Organization | | | | + + + + + | [facility] | [address] | [place] | [phone] | | [facility] | | [address] | | | - IMAGING | | [...]
--- OUTSIDE RECORDS SUMMARY | ~2019-11-10 | XMS | Encounter Summary ---
Demographics + + + | Address | [address] | | | [place] [address] | + + + | Home Phone | | + + + | Preferred Language | Unknown | + + + | Marital Status | | + + + | Jew Affiliation | 1028 | + + + | Race | Unknown | + + + | Ethnic Group | Unknown | + + + Author + + + | Author | [facility] | | | and [place] | + + + | Organization | [facility] | | [...] [place], [place] | | | | | [address] | | + + + + + | Chloe Malik | ECON | [place], [place] | | | | | [address] | | + + + + + | Ivett Ingram | ECON | Unknown | | + + + + + | Mj Cabrera | ECON | Unknown | | + + + + + | Jessa Cabrera | ECON | [address] | | | | | [place], [place] | | | | | [address] | | + + + + + Care Team Providers + +------+ + | Care Utilities Operator Name | Role | Phone | [...] | | [address] [place] | [place] [address] | | | | | [place] [address] | | | | | | [phone] | | | +--------+ + + + [...]
--- OUTSIDE RECORDS SUMMARY | ~2019-11-10 | XMS | Encounter Summary ---
Demographics + + + | Address | [address] | | | [place] [address] | + + + | Home Phone | | + + + | Preferred Language | Unknown | + + + | Marital Status | | + + + | Pentecostal Affiliation | 1028 | + + + | Race | Unknown | + + + | Ethnic Group | Unknown | + + + Author + + + | Author | [facility] | | | and [place] | + + + | Organization | [facility] | | | [...] [place], [place] | | | | | [address] | | + + + + + | Chloe Malik | ECON | [place], [place] | | | | | [address] | | + + + + + | Ivett Ingram | ECON | Unknown | | + + + + + | Mj Cabrera | ECON | Unknown | | + + + + + | Jessa Cabrera | ECON | [address] | | | | | [place], [place] | | | | | [address] | | + + + + + Care Team Providers + +------+ + | Care Ad Trafficker Name | Role | Phone | + [...] | | | | | [address] | | | | | | [place], [place] | | | | | | [address] | | | | | | [phone] | | | +--------+ + + + [...]
--- OUTSIDE RECORDS SUMMARY | ~2019-11-10 | XMS | Encounter Summary ---
Demographics + + + | Address | [address] | | | [place] [address] | + + + | Home Phone | | + + + | Preferred Language | Unknown | + + + | Marital Status | | + + + | Denominational Affiliation | 1028 | + + + | Race | Unknown | + + + | Ethnic Group | Unknown | + + + Author + + + | Author | [facility] | | | and [place] | + + + | Organization | [facility] | | [...] [place], [place] | | | | | [address] | | + + + + + | Chloe Malik | ECON | [place], [place] | | | | | [address] | | + + + + + | Ivett Ingram | ECON | Unknown | | + + + + + | Mj Cabrera | ECON | Unknown | | + + + + + | Jessa Cabrera | ECON | [address] | | | | | [place], [place] | | | | | [address] | | + + + + + Care Team Providers + +------+ + | Care Form Maker Plaster Name | Role | Phone | + [...] | | | | n | | [address] | [facility] | | | | | | [address] | [place], [place] | | | | | | [address] | [address] Phone: | | | | | | [place] | [phone] | | | | | | [address] | Fax: | | | | | | Phone: | [phone] | | | | | | [phone] | | | | | | | Fax: | | | | | | | [phone] | | +--------+--------+ + + + + Encounter Details +--------+---------+ + + + | Date | Type | Department | Care Team | Description | +--------+---------+ + + + | 08/02/ | Office | [facility] | William Granger | Bilateral lumbar | | 2014 | Visit | [address]ATRY [address] | [address] | radiculopathy | | | | [address] | [facility] | (Primary Dx); DDD | | | | [place] | [address] | (degenerative disc | | | | [address] | | disease), lumbar; | | | | [phone] | Favian, | S/P lumbar fusion | | | | | [address] | | | | | | [address] | | | | | | [place] [address] | | | | | | [phone] | | | | | | | [...] of the procedure you must provide a reach lift truck driver to take you home. For all [...] the request of Dr. Ray Oquendo from [facility] in [facility] for complaints of low ba ck, buttock [...] procedures dereje ser to his home in [place]. 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 He has appropriate fund of knowledge [...] CODE 724.4 LUMBAR RADICULOPATHY Dennis Okeefe | [facility] | | Deborah presents to the fluoroscopy suite for a | [facility] | | fluoroscopically-guided caudal epidural steroid injection [...] + | [facility] | [address] | [place], [place] | [phone] | | [facility] | | [address] | | | - IMAGING | | [...]
--- OUTSIDE RECORDS SUMMARY | ~2019-11-10 | XMS | Encounter Summary ---
Demographics + + + | Address | [address] | | | [place] [address] | + + + | Home Phone | | + + + | Preferred Language | Unknown | + + + | Marital Status | | + + + | Baptism Affiliation | 1028 | + + + [...] [place], [place] | | | | | [address] | | + + + + + | Chloe Malik | ECON | [place], [place] | | | | | [address] | | + + + + + | Ivett Ingram | ECON | Unknown | | + + + + + | Mj Cabrera | ECON | Unknown | | + + + + + | Jessa Cabrera | ECON | [address] | | | | | [place], [place] | | | | | [address] | | + + + + + Care Team Providers + +------+ + | Care Avionics Test Technician Name | Role | Phone | + +------+ + | Josr Henriquez | PCP | | | MD | | | + +------+ + Encounter Details +--------+ + + + + | Date | Type | Department | Care Team | Description | +--------+ + + + + | 09/01/ | Hospital | [facility] | Juan Rowell | No Show | | 2018 | Encounter | [facility] | MD Dary [address] | | | | | TH[address]APY [address] | [address] [place] | | | | | [place], | [place] [address] | | | | | [place] [address] | [phone] | | | | | [phone] | | | | | | | Jackeline Bentley, | | | | | | Speech Pathologist | | | | | | [address] | | | | | | [place], [place] | | | | | | [address] | | | | | | | | +--------+ + + + [...] documented as of this encounter Miscellaneous Notes Plan of Care - Jackeline Bentley, Speech Pathologist - 09/01/2017 4:04 PM PDTFormatting of th is note might be different from the original. Problem: Patient Care Overview (Adult) Goal: Care Team Goals & Evaluation PROBLEM-RELATED GOALS: STRATEGY TO ACHIEVE GOALS: RESTRAINT-RELATED GOALS: STRATEGIES TO ACHIEVE RESTRAINT GOALS: IRF Speech Therapy Plan of Care Initial Evaluation Note Summary: Pt seen sitting upright in chair at bedside for swallow and cognition assessment s/p admit for CVA. Pt intermittently coughing throughout session. Oral motor exam completed. Lingual and labial ROM WFL. Pt reported he has upper dentures. Pt challenged with pureed, g round, chopped, regular textures; and thin liquids. Pt tolerating all textures with no s/s o f airway compromise. Pt tolerating thin liquids with s/s of airway compromise. ST administer ed Barnard Cognitive Assessment-MOCA. Scored 14/30, indicating definite cognitive decline a nd impairment, moderate memory loss and disorientation, impaired problem solving, requires p rompts or supervision with some tasks, and mild impairment with household tasks/personal car es. Pt mildly impulsive, reduced safety awareness, moderate attention deficits, word finding deficits, and generative naming deficits. ST recommends regular texture diet, thin liquids. Speech therapy addressing: attention, word finding, generative naming, compensatory strateg ies for improved memory and attention, and memory recall. Speech Language Pathology Discharge Recommendations are: Recommended discharge disposition: other (see comments) (TBD) Post discharge speech language pathology recommendation: other (see comments) (TBD) Planned Interventions: orientation, patient/caregiver education, verbal expression, memory , compensatory strategies, cognitive stimulation Recommended Frequency: 3 times/wk, 4 times/wk Swallow Recommendations Recommended Solid Texture: regular Recommended Liquid Texture: thin liquids, ice chips OK Recommended Medication Delivery: whole pills with thin liquids, whole pills with puree Recommended Feeding/Eating Techniques: alternate between small bites and sips of food/liqui d, oral care before and after each meal, maintain upright posture during/after eating for 30 mins, one small sip or bite at a time, slow rate Non Instrumental/Clinical Swallow Exam Consistencies Trialed: thin liquids, puree, solid, mixed consistencies Thin Liquid - Bedside Swallowing Mode of Presentation: self fed Volume(s) Presented (mL): patient controlled volumes Oral Phase Results: intact oral phase without signs of dysfunction Pharyngeal Phase Results: safe swallow, no signs/symptoms of aspiration or penetration Puree - Bedside Swallowing Mode of Presentation: self fed Volume(s) Presented (mL): patient controlled volumes Oral Phase Results: intact oral phase without signs of dysfunction Pharyngeal Phase Results: safe swallow, no signs/symptoms of aspiration or penetration Solid - Bedside Swallowing Mode of Presentation: self fed Volume(s) Presented (mL): patient controlled volumes Oral Phase Results: intact oral phase without signs of dysfunction Pharyngeal Phase Results: safe swallow, no signs/symptoms of aspiration or penetration Mixed Consistencies Bedside Swallowing Mode of Presentation: self fed Volume(s) Presented (mL): patient controlled volumes Oral Phase Results: intact oral phase without signs of dysfunction Pharyngeal Phase Results: safe swallow, no signs/symptoms of aspiration or penetration Oral Motor Structure and Function Oral Motor Structure and Function General Impairment: None General Structure & Function: functional Dentition Assessment: upper dentures Mucosal Quality: good Cognition Goal Most Recent Value STG Status new at 09/01/2017 1523 STG Pt will increase immediate memory skills with 80% accuracy at 09/01/2017 1523 Additional Goals #1 HOOKER OFF Most Recent Value STG Status new at 09/01/2017 1523 STG Pt will increase use of compensatory strategies to 75% accuracy at 09/01/2017 1523 Additional Goals #2 HOOKER OFF Most Recent Value STG Status new at 09/01/2017 1523 STG Pt will increase focused attention to 80% accuracy. at 09/01/2017 1523 Electronically signed by: Jackeline Bentley Speech Pathologist, 09/01/2017 15:51 docume nted in this encounter Plan of Treatment Not on filedocumented as of this encounter Visit Diagnoses Not on filedocumented in this encounter"
--- OUTSIDE RECORDS SUMMARY | ~2019-11-10 | XMS | Encounter Summary ---
Demographics + + + | Address | [address] | | | [place] [address] | + + + | Home Phone | | + + + | Preferred Language | Unknown | + + + | Marital Status | | + + + | Hoahaoism Affiliation | 1028 | + + + | Race | Unknown | + + + | Ethnic Group | Unknown | + + + Author + + + | Author | [facility] | | | and [place] | + + + | Organization | [facility] | | | [...] [place], [place] | | | | | [address] | | + + + + + | Chloe Malik | ECON | [place], [place] | | | | | [address] | | + + + + + | Ivett Ingram | ECON | Unknown | | + + + + + | Mj Castle | ECON | Unknown | | + + + + + | Jessa Castle | ECON | [address] | | | | | [place], [place] | | | | | [address] | | + + + + + Care Team Providers + +------+ + | Care Cane Weigher Name | Role | Phone | + [...] | | | [address] | [address] [place], [place] | | | | | [place], [place] | [address] | | | | | [address] | | | | | | [phone] | | | +--------+ + + + [...] | A Perez: 0.86 m/s MV Dec Pierce: 2.35 m/s2 MV DecT: 257.02 ms | | | MV E Perez: 0.60 m/s MV E/A Ratio: 0.69 MV PHT: 74.53 ms | | | MVA By PHT: 2.95 cm2 Septal e': 0.02 m/s Septal E/e': 21.21 | | | Lateral e': 0.03 m/s Lateral E/e': 15.77 Jailkeeper: CHRISTOFER | | | Authenticated by: COLBY [...] cmLVIDd: 4.09 cmLVPWd: 0.90 cmLVOT Area: 3.38 [id number] Diam: 2.07 cm%FS: | | 27.13 %EF(Teich): [...] A4C: | | 6.53 cmLAAs A2C: 15.99 [id number] A-L A2C: 41.79 mlLALs A2C: 5.19 cmTAPSE: 1.82 | | cmAV maxP.74 mmHgAV meanP.86 mmHgAV Vmax: 1.63 m/Sagar Vmean: 1.13 m/Sagar | | VTI: 28.03 cmAVA Vmax: 1.57 cm2AVA (VTI): 1.60 [id number] maxP.31 mmHgLVOT | | meanP.23 mmHgLVSI Dopp: 22.94 ml/m2LVSV Dopp: 44.97 mlLVOT Vmax: 0.76 | | m/sLVOT Vmean: 0.51 m/sLVOT VTI: 13.28 cmMV A Perez: 0.86 m/sMV Dec Pierce: 2.35 | | m/s2MV DecT: 257.02 msMV E Perez: 0.60 m/sMV E/A Ratio: 0.69MV PHT: 74.53 msMVA By | | PHT: 2.95 ld7Wewsgt e': 0.02 m/sSeptal E/e': 21.21Lateral e': 0.03 m/sLateral | | E/e': 15.77 Jailkeeper: YONATANuthenticated by: Kavon BALDWIN Date/Time: | | [...] A Perez: 0.86 m/s | |MV Dec Pierce: 2.35 m/s2 | |MV DecT: 257.02 ms | |MV E Perez: 0.60 m/s | |MV E/A Ratio: 0.69 | |MV PHT: 74.53 ms | |MVA By PHT: 2.95 cm2 | |Septal e': 0.02 m/s | |Septal E/e': 21.21 | |Lateral e': 0.03 m/s | |Lateral E/e': 15.77 | | | |Jailkeeper: | |Authenticated by: COLBY ISAACS MD | [...]
--- OUTSIDE RECORDS SUMMARY | ~2019-11-10 | XMS | Encounter Summary ---
Demographics + + + | Address | [address] | | | [place] [address] | + + + | Home Phone | | + + + | Preferred Language | Unknown | + + + | Marital Status | | + + + | Latter-Day Affiliation | 1028 | + + + | Race | Unknown | + + + | Ethnic Group | Unknown | + + + Author + + + | Author | [facility] | | | and [place] | + + + | Organization | [facility] | | | [...] [place], [place] | | | | | [address] | | + + + + + | Chloe Malik | ECON | [place], [place] | | | | | [address] | | + + + + + | Ivett Ingram | ECON | Unknown | | + + + + + | Mj Cabrera | ECON | Unknown | | + + + + + | Jessa Caberra | ECON | [address] | | | | | [place], [place] | | | | | [address] | | + + + + + Care Team Providers + +------+ + | Care Church History Professor Name | Role | Phone | + +------+ + | Josr Henriquez | PCP | | | MD | | | + +------+ + Encounter Details +--------+ + + + + | Date | Type | Department | Care Team | Description | +--------+ + + + + | 09/01/ | Hospital | [facility] | Juan Rowell | No Show | | 2018 | Encounter | MED CTR SPEECH | MD Dary [address] | | | | | THERAPY [address] [place] | | | | | [place], | [place] [address] | | | | | [place] [address] | [phone] | | | | | [phone] | | | | | | | Jackeline Bentley, | | | | | | Speech Pathologist | | | | | | [address] | | | | | | [place], [place] | | | | | | [address] | | | | | | | [...] s/s of airway compromise. ST administer ed [place] Cognitive Assessment-MOCA. Scored 14/30, indicating definite cognitive [...] accuracy at 09/01/2017 1523 Additional Goals #1 DIRECTOR OF PROGRAMMING Most Recent Value STG Status new at 09/01/2017 1523 STG Pt will increase use of compensatory strategies to 75% accuracy at 09/01/2017 1523 Additional Goals #2 DIRECTOR OF PROGRAMMING Most Recent Value STG Status new at 09/01/2017 1523 STG Pt will increase focused attention to 80% accuracy. at 09/01/2017 1523 Electronically signed by: Jackeline Bentley Speech Pathologist, 09/01/2017 15:51 docume nted in this encounter Plan of Treatment Not on filedocumented as of this encounter Visit Diagnoses Not on filedocumented in this encounter"
--- OUTSIDE RECORDS SUMMARY | ~2019-11-10 | XMS | Encounter Summary ---
Demographics + + + | Address | [address] | | | [place] [address] | + + + | Home Phone | | + + + | Preferred Language | Unknown | + + + | Marital Status | | + + + | Sabianist Affiliation | 1028 | + + + [...] [place], [place] | | | | | [address] | | + + + + + | Chloe Malik | ECON | [place], [place] | | | | | [address] | | + + + + + | Ivett Ingram | ECON | Unknown | | + + + + + | Mj Cabrera | ECON | Unknown | | + + + + + | Jessa Cabrera | ECON | [address] | | | | | [place], [place] | | | | | [address] | | + + + + + Care Team Providers + +------+ + | Care Laserist Name | Role | Phone | + [...] 2015 | | PHYSIATRY [address] | WAREHOUSE ATTENDANT | gabapentin) | | | | [address] | | | | | | [place] | | | | | | [address] | | | | | | [phone] | | | +--------+ + + + [...] Telephone Encounter - Marbella Syed Master of COTA - 08/03/2014 4:48 PM PDTPatients w orly given directions and will make sure he is taking it as directed by Dr. Granger.Electr onically signed by Marbella Syed Master of COTA at 08/03/2014 4:50 PM PDTTelephone Enco unter - Marbella Syed Master of COTA - 08/03/2014 4:47 PM PDT----- Message from [...]
--- OUTSIDE RECORDS SUMMARY | ~2019-11-10 | XMS | Encounter Summary ---
Demographics + + + | Address | [address] | | | [place] [address] | + + + | Home Phone | | + + + | Preferred Language | Unknown | + + + | Marital Status | | + + + | Moravian Affiliation | 1028 | + + + | Race | Unknown | + + + | Ethnic Group | Unknown | + + + Author + + + | Author | [facility] | | | and [place] | + + + | Organization | [facility] | | | [...] [place], [place] | | | | | [address] | | + + + + + | Chloe Malik | ECON | [place], [place] | | | | | [address] | | + + + + + | Ivett Ingram | ECON | Unknown | | + + + + + | Mj Cabrera | ECON | Unknown | | + + + + + | Jessa Cabrera | ECON | [address] | | | | | [place], [place] | | | | | [address] | | + + + + + Care Team Providers + +------+ + | Care Highway Patrol Commander Name | Role | Phone | + +------+ + | Josr Henriquez | PCP | | | MD | | | + +------+ + Reason for Visit Service/Procedure (Routine) +--------+--------+ + + + + | Status | Reason | Specialty | Diagnoses / | Referred By | Referred To | | | | | Procedures | Contact | Contact | +--------+--------+ + + + + | Closed | | Radiology | Diagnoses | | [facility] | | | | | | [place], | [address] | | | | | Sacroiliitis | William Mccarty MD | [place], | | | | | ([facility]LY [facility] | [address] | [place] | | | | | Procedures | [address] [place] | [address] | | | | | [place] INJECT SI | [place], [place] | Phone: | | | | | [place] | [address] | [phone] | | | | | ARTHRGRPHY&/ | Phone: | Fax: | | | | | ANES/STEROID | [phone] | [phone] | | | | | W/IMAGE [place] | Fax: | | | | | | | [phone] | | | | | | TRIAMCINOLON | | | | | | | E ACET INJ | | | | | | | NOS, 10 MG | | | | | | | Bilat SI | | | | | | | Joint-appt | | | | | | | 11 | | | +--------+--------+ + + + + Encounter Details +--------+ + + + + | Date | Type | Department | Care Team | Description | +--------+ + + + + | 11/03/ | Hospital | [facility] | Favian, | Chronic low back | | 2015 | Encounter | MED CTR XRAY [address] | KATYA Colin [address] | pain; DDD | | | | [address] [place] | [address], [address] | (degenerative disc | | | | [place] [address] | [place] [address] | disease), lumbar; | | | | [phone] | [phone] | S/P lumbar fusion; | | | | | | Bilateral | | | | | Technology Advisor, [facility] | sacroiliitis (HCC) | | | | | [place] | | +--------+ + + + + [...] this encounter Last Filed Vital Signs + +---------+ + + | Vital Sign | Reading | Time Taken | Comments | + +---------+ + + | Blood Pressure | 207/118 | 03/13/2015 2:19 PM | | | | | PST | | + +---------+ + + | Pulse | 82 | 03/13/2015 2:19 PM | | | | | PST | | + +---------+ + + | Temperature | - | - | | + +---------+ + + | Respiratory Rate | - | - | | + +---------+ + + | Oxygen Saturation | - | - | | + +---------+ + + | Inhaled Oxygen | - | - | | | Concentration | | | | + +---------+ + + | Weight | - | - | | + +---------+ + + | Height | - | - | | + +---------+ + + | Body Mass Index | - | - | | + +---------+ + + documented in this encounter Medications at Time [...] | | | | | | | ([facility] | | | | | | | PO) | | | | | | + + + +---------+ + + | cabergoline | | | 0 | 07/10/19 | | | (DOSTINEX) 0.5 mg | | | | 12 | 8 | | tablet | | | | | | + + + +---------+ + + | donepezil | Take 5 mg by mouth | | 0 | | | | (ARICEPT) 5 mg | nightly. | | | | 8 | | tablet | | | | | | + + + +---------+ + + | fesoterodine | Take 8 mg by mouth | | 0 | | | | fumarate (TOVIAZ) 8 | Daily. | | | | 8 | | MG TB24 ER tablet | | | | | | + + + +---------+ + + | levothyroxine | Take 137 mcg by | | 0 | 01/22/20 | | | (LEVOTHROID) 137 MCG | mouth Daily. | | | 12 | 8 | | tablet | | | | | | + + + +---------+ + + | | Take 100-25 mg by | | 0 | 01/22/20 | | | losartan-hydrochloro | mouth Daily. | | | 12 | 8 | | thiazide (HYZAAR) | | | | | | | 100-25 MG per tablet | | | | | | + + + +---------+ + + | Multiple | Take by mouth. | | 0 | | | | Vitamins-Minerals | | | | | 8 | | (CENTRAL-SHAUN PO) | | | | | | + + + +---------+ + + | Multiple | Take by mouth. | | 0 | | | | Vitamins-Minerals | | | | | 8 | | (CENTRUM SILVER | | | | | | | ADULT 50+ PO) | | | | | | + + + +---------+ + + | Multiple | Take by mouth. | | 0 | | | | Vitamins-Minerals | | | | | 8 | | (OCUVITE ADULT 50+ | | | | | | | PO) | | | | | | + + + +---------+ + + | Naproxen Sodium | Take 220 mg by mouth | | 0 | | | | (ALEVE) 220 MG CAPS | 2 times daily. | | | | 8 | + + + +---------+ + + | testosterone | 200mg IM every 2 | | 0 | 07/10/19 | | | cypionate | weeks | | | 12 | 8 | | (DEPO-TESTOSTERONE) | | | | | | | 200 mg/mL injection | | | | | | + + + +---------+ + + | traZODone | Take 50 mg by mouth | | 0 | | | | (DESYREL) 50 mg | nightly. | | | | 8 | | tablet | | [...] + +--------+ + + + | FL SACROILIAC | Routin | 03/13/2015 | Chronic low back | Results for this | | INJECTION RIGHT | e | 2:11 PM | pain DDD | procedure are in the | | | | PST | (degenerative disc | results section. | | | | | disease), lumbar | | | | | | S/P lumbar fusion | | | | | | Bilateral | | | | | | sacroiliitis (HCC) | | + +--------+ + + + | FL SACROILIAC | Routin | 03/13/2015 | Chronic low back | Results for this | | INJECTION LEFT | e | 2:11 PM | pain DDD | procedure are in the | | | | PST | (degenerative disc | results section. | | | | | disease), lumbar | | | | | | S/P lumbar fusion | | | | | | Bilateral | | | | | | sacroiliitis (HCC) | | + +--------+ + + + documented in this encounter Results FL Sacroiliac Injection Right (03/13/2015 2:11 PM PST) + + | Specimen | + + | | + + + + + | Narrative | Performed At | + + + | 03/13/2015 Bilateral Sacroiliac Joint Injection Clinical History: | [facility] | | Sacroiliitis ICD-10 M46.1 Dennis Cabrera presents to the | [facility] | | fluoroscopy suite for fluoroscopically guided bilateral sacroiliac [facility] | | joint steroid injections as [...] + | [address] | [address] | [place], [place] | [phone] | | [facility] | | [address] | | | - IMAGING | | [...] M46.1 Dennis Cabrera presents to the | [facility] | | fluoroscopy suite for fluoroscopically guided bilateral sacroiliac [facility] | | joint steroid injections as [...] | + + + + + | [address] | [address] | [place], [place] | [phone] | | [facility] | | [address] | | | - IMAGING | | [...] in this encounter Administered Medications + +--------+ +-------+------+------+ | Medication Order | MAR | Action | Dose | Rate | Site | | | Action | Date | | | | + +--------+ +-------+------+------+ | iohexol (OMNIPAQUE 300) 300 | Given | 03/13/20 | 2 mLs | | | | mg/mL injection 2 mL 2 mL, | | 15 2:12 | | | | | Other, ONCE PRN, Other, Starting | | PM PST | | | | | 03/13/15 at 1358, For 1 dose, | | | | | | | Radiology | | | | | | + +--------+ +-------+------+------+ +---+---+ | | | +---+---+ + +-------+ +-------+---+---+ | lidocaine 1% injection 2 mL 2 | Given | 03/13/20 | 2 mLs | | | | mL, Other, ONCE, 11/3/15 at | | 15 2:15 | | | | | 1415, For 1 dose, Radiology | | PM PST | | | | + +-------+ +-------+---+---+ +---+---+ | | | +---+---+ + +-------+ +-------+---+ + | lidocaine buffered 1% injection | Given | 03/13/20 | 5 mLs | | Other | | 5 mL 5 mL, Intradermal, ONCE, | | 15 2:08 | | | (Comment | | 03/13/15 at 1415, For 1 dose, | | PM PST | | | ) | | Radiology | | | | | | + +-------+ +-------+---+ + +---+---+ | | | +---+---+ + +-------+ +-------+---+---+ | triamcinolone acetonide | Given | 03/13/20 | 40 mg | | | | (KENALOG-40) 40 mg/mL injection | | 15 2:15 | | | | | 40 mg 40 mg, Intra-articular, | | PM PST | | | | | ONCE, 03/13/15 at 1415, For 1 | | | | | | | dose, Shake well. Not for IV | | | | | | | use., Radiology | | | | | | + +-------+ +-------+---+---+ +---+---+ | | | +---+---+ documented in this encounter"
--- OUTSIDE RECORDS SUMMARY | ~2019-11-10 | XMS | Encounter Summary ---
Demographics + + + | Address | [address] | | | [place] [address] | + + + | Home Phone | | + + + | Preferred Language | Unknown | + + + | Marital Status | | + + + | Mosque Affiliation | 1028 | + + + | Race | Unknown | + + + | Ethnic Group | Unknown | + + + Author + + + | Author | [facility] | | | and [place] | + + + | Organization | [facility] | | | and [...] [place], [place] | | | | | [address] | | + + + + + | Chloe Malik | ECON | [place], [place] | | | | | [address] | | + + + + + | Ivett Ingram | ECON | Unknown | | + + + + + | Mj Cabrera | ECON | Unknown | | + + + + + | Jessa Cabrera | ECON | [address] | | | | | [place], [place] | | | | | [address] | | + + + + + Care Team Providers + +------+ + | Care Laborer Yard Name | Role | Phone | + +------+ + | Monty Lentz MD | PCP | | + +------+ + Encounter Details +--------+ + + + + | Date | Type | Department | Care Team | Description | +--------+ + + + + | 07/27/ | Abstract | [facility] [place] | William Granger | | | 2014 | | PHYSIATRY [address] | MD Lul [address] | | | | | [address] | [address] [place] | | | | | [place] | [address] | | | | | [address] | | | | | | [phone] | | | +--------+ + + + [...]
--- OUTSIDE RECORDS SUMMARY | ~2019-11-10 | XMS | Encounter Summary ---
Demographics + + + | Address | [address] | | | [place] [address] | + + + | Home Phone | | + + + | Preferred Language | Unknown | + + + | Marital Status | | + + + | Mormonism Affiliation | 1028 | + + + | Race | Unknown | + + + | Ethnic Group | Unknown | + + + Author + + + | Author | [facility] | | | and [place] | + + + | Organization | [facility] | | | [...] [place], [place] | | | | | [address] | | + + + + + | Chloe Malik | ECON | [place], [place] | | | | | [address] | | + + + + + | Ivett Ingram | ECON | Unknown | | + + + + + | Mj Cabrera | ECON | Unknown | | + + + + + | Jessa Cabrera | ECON | [address] | | | | | [place], [place] | | | | | [address] | | + + + + + Care Team Providers + +------+ + | Care Paint Trimmer Pipe Bowls Name | Role | Phone | + [...] | | | | | mechanism | [phone] | | | | | | ([facility]) | Phone: | | | | | | | [phone] | | | | | | | Fax: | | | | | | | [phone] | | +--------+ + + + + + Encounter Details +--------+ + + + + | Date | Type | Department | Care Team | Description | +--------+ + + + + | 08/31/ | Hospital | [facility] | Juan Rowell | Cerebrovascular | | 2018 - | Encounter | MED CTR [facility] [address] | MD Dary [address] | accident (CVA), | | | | [place], | [address] | unspecified | | 09/09/ | | [place] [address] | [place] [id number] | mechanism (HCC) | | 2018 | | [phone] | [phone] | (Primary Dx); | | | | [...] rehabilitation ADMISSION HPI: Patient was admitted to [facility] via the emergency room on August 21. [...] on August 21 upon their return to [place] she took him to [facility] h jean was admitted On examination and [...] TIA. Hypertension but negative for angina or [place] or dysrhythmia. Past Medical History: Diagnosis Date [...] turned off when he was admitted to [facility]. He had remote traumatic Partial amputation of [...] this chart may have been created with [employer] voice recognition software. Occasi onal wrong-word or [...] | | | | | | | ([facility] | | | | | | [...] Rowell MD - 09/08/2017 2:43 PM PDT Nkvk-ge-Bcba Rehabilitation Medicine Daily Progress Note Date: 09/08/17 [...] 81 mg, 81 mg, Oral, Daily, Juan Rwoell MD, 81 mg at 09/08/17 0847 [email or web address] [...] occupational therapy, speech therapy, case management, and high school social studies teacher #Rehab - -Continue PT for gait, mobility -Continue OT for ADL's, toileting, adaptive equipment -Continue LABORER POWERHOUSE for cognition, -Continue SW for discharge planning [...] destination were discussed and reviewed with the vocational case manager. She is collaborating with the patient's suppo [...] Notes document close and ongoing Physiatric involvement; lzvk-lf-spro vi sits, professionally assessing the Patient, both [...] information from all of the Medical Rehabilitation mathematics faculty member's assessments and reports as we synthesized [...] this chart may have been created with [employer] voice recognition software. Occasi onal wrong-word or sound-alike substitutions may have occurred due to the inherent mejia itations of voice recognition software. Please read the chart carefully and recognize, using context, where these substitutions have occurred. ill, Juan Foote MD - 09/07/2017 2:54 PM PDT Xlck-bl-Dirj Rehabilitation Medicine Daily Progress Note Date: 09/07/17 [...] occupational therapy, speech therapy, case management, and high school social studies teacher #Rehab - -Continue PT for gait, mobility -Continue OT for ADL's, toileting, adaptive equipment -Continue LABORER POWERHOUSE for cognition, -Continue SW for discharge planning [...] was discussed. I met with the patient's vocational case manager and reviewed the current rehabilitation plan of [...] Notes document close and ongoing Physiatric involvement; snej-wy-xwjp vis its , professionally assessing the Patient, [...] backwards, uneven surface gait, etc. Level of Bradford: supervised Assistive Device: cane (straight, single point) Distance (feet): 450 Gait Deviations: step length decreased, cys-bg-becuf clearance decreased, weight-shifting a bility decreased Impairments: strength decreased, impaired balance, coordination impaired, postural control impaired Stairs no LOB, demo safe technique with AD this am session. Number of Stairs: 12 Handrail Location: right side (ascending) Level of Bradford: modified independent Assistive Device: 1 rail Technique Used: step over step (descending), step over step (ascending) Safety Issues: balance decreased during turns Impairments: impaired balance, coordination impaired Follow-up tomorrow morning with the full inpatient rehabilitation treatment team in [facility] is planned. Total time: 36 minutes. I spent greater than 50% of the time regarding patient care and co ordination of the Medical Rehabilitation Team treatment focus addressing these patient care needs on this date, including nursing unit/floor time, as well as time communicating with [facility] patient and treatment team as discussed above. Signed: Juan Rowell MD Portions of this chart may have been created with [employer] voice recognition software. Occasi onal wrong-word or [...] his P CP, Dr. Josr Henriquez, at [facility] in [place], [place].Electronically keya d by Lulu Ortiz RN at 09/07/2017 1:34 PM Lisbethll, Juan Foote MD - 09/05/2017 11:01 AM PDT Hzdl-ug-Npnq Rehabilitation Medicine Daily Progress Note Date: 09/05/17 [...] occupational therapy, speech therapy, case management, and high school social studies teacher #Rehab - -Continue PT for gait, mobility -Continue OT for ADL's, toileting, adaptive equipment -Continue LABORER POWERHOUSE for cognition, -Continue SW for discharge planning [...] Notes document close and ongoing Physiatric involvement; svnm-vv-mcyd vis its , professionally assessing the Patient, [...] this chart may have been created with [employer] voice recognition software. Occasi onal wrong-word or sound-alike substitutions may have occurred due to the inherent mejia itations of voice recognition software. Please read the chart carefully and recognize, using context, where these substitutions have occurred. Hiwyatt, Juan Foote MD - 09/04/2017 4:44 PM PDT Bidc-us-Wqse Rehabilitation Medicine Daily Progress Note Date: 09/04/17 [...] occupational therapy, speech therapy, case management, and high school social studies teacher #Rehab - -Continue PT for gait, mobility -Continue OT for ADL's, toileting, adaptive equipment -Continue LABORER POWERHOUSE for cognition, -Continue SW for discharge planning [...] for t hat I met with our vocational case manager, and we reviewed the overall plan of care and projected dischar ged date an,d destination. Note: My Progress Notes document close and ongoing Physiatric involvement; wayy-xa-byhf vi sits, professionally assessing the Patient, both [...] plan was provided to the patient. Each steam boiler fireman is addressing this as the patient advances [...] this chart may have been created with [employer] voice recognition software. Occasi onal wrong-word or sound-alike substitutions may have occurred due to the inherent mejia itations of voice recognition software. Please read the chart carefully and recognize, using context, where these substitutions have occurred. Hill, Juan Foote MD - 09/03/2017 4:54 PM PDT Jras-ei-Dlsd Rehabilitation Medicine Daily Progress Note Date: 09/03/17 [...] occupational therapy, speech therapy, case management, and high school social studies teacher #Rehab - -Continue PT for gait, mobility -Continue OT for ADL's, toileting, adaptive equipment -Continue LABORER POWERHOUSE for cognition, -Continue SW for discharge planning [...] with the patient as well as our vocational case manager and reviewed the overall plan of care. Rosalina pena discussed the projected discharge date and destination. The patient's current rehabilitation plan of care and projected discharge destination were discussed and reviewed with the vocational case manager. She is collaborating with the patient's support [...] Notes document close and ongoing Physiatric involvement; aply-ma-nlke vis its , professionally assessing the Patient, [...] information from all of the Medical Rehabilitation mathematics faculty member's assessments and reports as we synthesized [...] bowel and bladder, and coordination with the Court Bailiff managing medical co -morbidities; including Coordinate with [...] term memory, problem solving and carry over. Hemmer Chainstitch Respiratory Therapy Please see each of the [...] of function to allow discharge to the [facility] at the optimal level of function. Current [...] am is advanced. Specific short term and halfway Rehabilitation Team Treatment Goals will be developed, sh ared and implemented in collaboration with our patient and family/caregivers. The Electrolytic De Scaler is the lim Rehab steam boiler fireman interfacing with them. Rehab Potential: Good Expected Functional Level at Discharge: Modified Independent/Supervision Estimated length of stay: 9 days Discharge Plan: Discharge to pre-morbid independent living setting with the supportive care of patient's spouse/significant other/family/caregivers and community resources. Signed: Juan Rowell MD Portions of this chart may have been created with [employer] voice recognition software. Occasi onal wrong-word or sound-alike substitutions may have occurred due to the inherent mejia itations of voice recognition software. Please read the chart carefully and recognize, using context, where these substitutions have occurred. ill, Juan Foote MD - 09/02/2017 4:27 PM PDT Ydox-dt-Ktsh Rehabilitation Medicine Daily Progress Note Date: 09/02/17 [...] occupational therapy, speech therapy, case management, and high school social studies teacher #Rehab - -Continue PT for gait, mobility -Continue OT for ADL's, toileting, adaptive equipment -Continue LABORER POWERHOUSE for cognition, -Continue SW for discharge planning [...] well as chronic neuropathic pain [facility] as described with remote partial traumatic [...] balance and dec.safety awareness. Bed-Chair, Level of Bradford: supervised Chair-Bed, Level of Bradford: supervised Nlc-Xbhky-Ion, Assistive Device: none Sit-Stand, Level of Bradford: supervised Stand-Sit, Level of Bradford: supervised Udq-Wqsvl-Ysb, Assistive Device: none Safety Issues: balance decreased during turns Impairments: strength decreased, impaired balance, coordination impaired Gait amb on ramp. Level of Bradford: stand by assist Assistive Device: none Distance (feet): 300x 2 Gait Deviations: step length decreased, mhp-kq-ajzkj clearance decreased Impairments: strength decreased, impaired balance, [...] schedule hands-on training. I met with our vocational case manager, and we discussed the above, and reviewed the overall plan of c are and projected discharged date an,d destination. Note: My Progress Notes document close and ongoing Physiatric involvement; cykx-mc-hebk vi sits, professionally assessing the Patient, both [...] the full inpatient rehabilitation treatment team in [facility] is planned. Signed: Juan Rowell MD Portions of this chart may have been created with [employer] voice recognition software. Occasi onal wrong-word or sound-alike substitutions may have occurred due to the inherent mejia itations of voice recognition software. Please read the chart carefully and recognize, using context, where these substitutions have occurred. ill, Juan Foote MD - 09/01/2017 2:02 PM PDT Phjt-mz-Pfry Rehabilitation Medicine Daily Progress Note Date: 09/01/17 [...] screen bilaterally. Otherwise it appears intact to ms reen. NEUROMUSCULOSKELETAL: Normal tone and bullk. Strength [...] occupational therapy, speech therapy, case management, and high school social studies teacher #Rehab - -Continue PT for gait, mobility -Continue OT for ADL's, toileting, adaptive equipment -Continue LABORER POWERHOUSE for cognition, -Continue SW for discharge planning [...] Notes document close and ongoing Physiatric involvement; mcjx-al-gajg vis its , professionally assessing the Patient, [...] continuing to coordinate and collaborate with the [facility]'s nursing staff to complement their therapy treatment [...] up with the patient's bedside nurse, and vocational case manager/social media senior associate. See orders Total time: 37 minutes. I spent greater than 50% of the time regarding patient care and co ordination of the Medical Rehabilitation Team treatment focus addressing these patient care needs on this date, including nursing unit/floor time, as well as time communicating with [facility] patient and treatment team as [...] retired. He lives in a single story [facility] community with his in [place]. He was independent with self-care and home [...] bowel and bladder, and coordination with the Court Bailiff management medical comorbid ities. Therapies: Physical Therapy [...] of the Comprehensive Medical Rehabilitation Program.) Clinical Carpet Layer Helper Pharmacist Goals: Medical stability and safety with [...] collaboration with our patient and family/caregivers. The Electrolytic De Scaler is the lim Rehab steam boiler fireman interfacing with them. Rehab potential is good. Estimated length of stay: 10 days. Discharge Plan: Discharge to premorbid independent living setting with the supportive car e of family/caregivers and community resources. Signed: Juan Rowell MD 09/01/2017 10:25 Portions of this chart may have been created with [employer] voice recognition software. Occasi onal wrong-word or [...] 82 y.o. male who was admitted to [facility] in [facility] on 08/21/17 for CVA. PM&R consultation was requested by Dr. Juan Rowell MD t o provide an opinion regarding Dennis Cabrera rehabilitation needs. History of Present Illness: Patient was admitted to [facility] via the emergency room on August 21. [...] on August 21 upon their return to [place] she took him to [facility] h e was admitted On examination and [...] TIA. Hypertension but negative for angina or [place] or dysrhythmia. Past Medical History: Diagnosis Date [...] turned off when he was admitted to [facility]. He had remote traumatic Partial amputation of [...] bindu. he is retired. He is certainly [employer] for 4 years. Subsequently he was in the [employer] and other endeavors O has been retired now for many years. Sine-Aid indepen dent ambulator in the house and he is single point cane in the community. [place] currently live in a one-story [place] [facility] [place] in [place]. Several adult children with the supportive family. [...] changes throughout. BACK: Nontender. The spinal stimulator house mover supervisor palpated in the right buttocks SKIN: Warm [...] screen bilaterally. Otherwise it appears intact to [facility]. NEUROMUSCULOSKELETAL: Normal tone and bullk. Strength testing [...] medically complex and requires 24hr MD and [facility] care. # Rehabilitation - The patient will receive the following therapies: -- PT: impairments in gait, transfers, bed mobility, ambulation, ROM, strengthening, endura nce. -- OT: impairments in ADLs and iADLs, ROM, strengthening. -- LABORER POWERHOUSE: impairments in cognition, communication, swallow/dysphagia -- SW: [...] continuing to coordinate and collaborate with the [facility]'s nursing staff to complement their therapy treatment [...] up with the patient's bedside nurse, and vocational case manager/social media senior associate. See orders document ed in this encounter Consult Notes Juan Rowell MD - 08/31/2017 11:41 AM PDT REHABILITATION MEDICINE PRESCREEN NOTE: Patient Identification Dennis Cabrera is a 82 y.o. male. : 1935 Admit Date: 08/21/17 Attending Provider: Sary Parkinson MD Primary Care Physician: Josr Henriquez MD Admitting Diagnosis: CVA Chief Complaint/Identification: Dennis Cabrera is a 82 y.o. male who was admitted to [facility] in [facility] on 08/21/17 for CVA. PM&R consultation was requested by Dr. Juan Rowell MD t o provide an opinion regarding Dennis Cabrera rehabilitation needs. History of Present Illness: Patient was admitted to [facility] via the emergency room on August 21. [...] Years of education: N/A Occupational History [employer] Retired retired Social History Main Topics Smoking [...] retired. He lives in a single story [facility] [place] [facility] [place] with his in [place]. He was independent with self-care and home [...] training in ADLs, IADLs --Continue Speech therapy (LABORER POWERHOUSE) to follow for swallow and for cognitive/communication [...] for 60 minutes per day 5-6 days/week LABORER POWERHOUSE for 60 minutes per day 4-6 days/week [...] this chart may have been created with [employer] voice recognition software. Occas ional wrong-word or [...] follow ing CVA. present in the room. LABORER POWERHOUSE discussed with pt and compensatory strategies fo r improved word finding and memory. Pt and verbally indicated understanding. LABORER POWERHOUSE provid ed handouts of compensatory strategies and [...] other (see comments) (Pt living in [facility]. Lives with ) Post discharge speech language pathology recommendation: outpatient therapy, continue LABORER POWERHOUSE tx for cognitive-linguistic Planned Interventions: compensatory strategies, [...] Personal Safety: decreased awareness, need for safety Short/Penitentiary Memory: mild impairment, short term memory, mild impairment, halfway [place] Executive Function Skills: lack of mental flexibility, organizational issues, mild impairme nt Auditory Comprehension Able to follow multi-step directions Verbal Expression Word finding skills improving Cognition Goal Most Recent Value STG Status met at 09/09/2017 1255 STG Pt will increase immediate memory skills with 80% accuracy at 09/09/2017 1255 Additional Goals #1 LABORER POWERHOUSE Most Recent Value STG Status progressing, revised at 09/09/2017 1255 STG Pt will participate in education of compensatory strategies to 75% accuracy at 018 1255 Additional Goals #2 LABORER POWERHOUSE Most Recent Value STG Status met at 09/09/2017 1255 STG Pt will increase focused attention to 80% accuracy. at 09/09/2017 1255 Electronically signed by: Jackeline Bentley, Speech Pathologist, 09/09/2017 13:02 lan o f Robbie - Odessa Anguiano, OPERATING MANAGER - 09/09/2017 12:08 PM PDTFormatting of this [...] Outcome: Adequate for Discharge Date Met: 09/09/17 [facility] Physical Therapy Plan of Care Treatment Note [...] reports he has a membership to the [employer] where therapy is located and could transit [...] Assistive Device: none Roll Left, Level of Bradford: independent Roll Right, Level of Bradford: independent Supine to Sit, Level of Bradford: independent Sit to Supine, Level of Bradford: independent Safety Issues: decreased use of legs for bridging/pushing, impaired trunk control for bed m obility Impairments: postural control impaired, pain, impaired balance, strength decreased Transfers Pt demos safe and indepedent transfers with cane and without AD. Bed-Chair, Level of Bradford: independent Chair-Bed, Level of Bradford: independent Mxc-Mwvdk-Fyl, Assistive Device: none Sit-Stand, Level of Bradford: modified independent Stand-Sit, Level of Bradford: modified independent Ohb-Clulu-Eml, Assistive Device: cane (straight, single point) Safety Issues: balance decreased during turns, weight-shifting ability decreased, sequencin g ability decreased Impairments: impaired balance, postural control impaired, strength decreased Therapeutic Exercise Gave pt a [email or web address] handout and went over all exercises and how to access the program on [employer] computer. PT Goal Review Date Most Recent Value STG Review Date 09/03/17 at 08/31/2017 1545 LTG Review Date 09/12/17 at 08/31/2017 1545 Uxnath-Gtm-Xgaflt Goal Most Recent Value STG Status met at 09/02/2017 1500 STG Bradford Level modified independent at 08/31/2017 1545 STG Assistive Device none at 08/31/2017 1545 Xyj-Biyen-Lpr Goal Most Recent Value STG Status met at 09/03/2017 0859 STG Bradford Level supervised at 08/31/2017 1545 STG Assistive Device none at 08/31/2017 1545 LTG Status met at 09/07/2017 1554 LTG Bradford Level independent at 08/31/2017 1545 LTG Assistive Device cane (straight, single point) at 09/03/2017 0859 Gait Goal Most Recent Value STG Status met at 09/03/2017 0859 STG Bradford Level stand by assist at 08/31/2017 1545 STG Assistive Device none, cane (straight, single point) at 08/31/2017 1545 STG Distance (feet) 200' at 08/31/2017 1545 STG Comments none vs SPC at 08/31/2017 1545 LTG Status progressing at 09/08/2017 1624 LTG Bradford Level independent at 08/31/2017 1545 LTG Assistive Device cane (straight, single point) at 09/03/2017 0859 Stair Goal Most Recent Value STG Status met at 09/03/2017 0859 STG Bradford Level supervised at 08/31/2017 1545 STG Assistive Device 2 rails at 08/31/2017 1545 STG Number of Stairs 12 at 08/31/2017 1545 LTG Status met at 09/08/2017 1430 LTG Bradford Level modified independent at 08/31/2017 1545 LTG [...] 09/21/2017 3:34 PM PDTDischarge Note Spoke with physical therapy assistant instructor regarding patient status and goals, agree with [...] t would like outpatient OT, PT, and LABORER POWERHOUSE post discharge. The patient's spouse, Brie, will [...] Information Primary Emergency Contact: Brie Cabrera [address]: [address] [place] [address] [place] [address] [facility] Relation: Spouse Secondary Emergency Contact: Chloe Malik Address: [place] [address] [facility] Relation: Daughter Advance Directives: No - Information Given Attending Provider: Juan Rowell MD Insurance: Payor/Plan Subscr Sex Relation Sub. Ins. ID Effective Group Num 1. MEDICARE - [place] M[place]* 1935 Male [id number] 04/10/1995 [address] 2. AARP - AARP B[place] MIRANDAOL* 1935 Male [id number] 04/10/2000 [facility] [employer] [facility], [address] Hospital Preference: [facility] Personal Health History Allergies Allergen Reactions Cyclobenzaprine [...] Years of education: N/A Occupational History [employer] Retired retired Social History Main Topics Smoking [...] rocks and wide depth stairs. Level of Bradford: modified independent Assistive Device: cane (straight, single point) Distance (feet): 1000 Additional Documentation: deviations, impairments, stairs (group) Gait Deviations: step length decreased, dax-hd-ntmiv clearance decreased, weight-shifting a bility decreased Impairments: strength decreased, impaired balance, coordination impaired, postural control impaired Stairs Stairs, Comment: no LOB, demo safe technique with AD this am session. Number of Stairs: 12 Handrail Location: right side (ascending) Level of Bradford: modified independent Assistive Device: 1 rail Technique Used: step to step (descending) Safety Issues: balance decreased during turns Impairments: impaired balance, coordination impaired Dressing Upper Body UB Dressing Assess/Train, Comment: . UB Dressing, Level of Bradford: independent Assistive Device: none UB Dressing Assess/Train, Position: standing UB Dressing Assess/Train, Impairments: impaired balance, motor control impaired Lower Body LB Dressing Assess/Train, Comment: including donning/doffing socks and shoes LB Dressing, Level of Bradford: independent Assistive Device: none LB Dressing Assess/Train, Position: standing, sitting LB Dressing Assess/Train, Impairments: impaired balance, motor control impaired, decreased flexibility, postural control impaired Bathing Bathing Assess/Train, Comment: . Bathing, Level of [place]: modified independent Assistive Device: hand-held shower head, [...] by: ELIOT Rossi 09/09/2017 10:40 lan of [facility], [place] - Keri Lopez, MILLER DISTILLERY - 09/09/2017 8:33 AM PDTProblem: Patient Care [...] t his AM. . Bathing, Level of [place]: modified independent Assistive Device: hand-held shower head, shower chair with back Bathing Assess/Train, Position: sitting, standing Bathing Assess/Train, Impairments: impaired balance, decreased flexibility . UB Dressing, Level of [place]: independent Assistive Device: none UB Dressing Assess/Train, Position: standing UB Dressing Assess/Train, Impairments: impaired balance, motor control impaired including donning/doffing socks and shoes LB Dressing, Level of [place]: independent Assistive Device: none LB Dressing Assess/Train, Position: standing, sitting LB Dressing Assess/Train, Impairments: impaired balance, motor control impaired, decreased flexibility, postural control impaired . Toileting, Level of [place]: modified independent Assistive Device: grab bar Toileting Assess/Train, Position: sitting, standing Toileting Assess/Train, Impairments: impaired balance including oral care Grooming, Level of [place]: independent Assistive Device: none Grooming Assess/Train, Position: standing Grooming Assess/Train, Impairments: impaired balance Self-Feeding, Level of [place]: independent Assistive Device: none Self-Feeding Assess/Train, Position: sitting Self-Feeding Assess/Train, Impairments: (deficits in STM and problem solving) Bed Mobility Pt continues to require extra effort with supine to sit EOB , but he is doing so w/o any as sist Assistive Device: none Roll Left, Level of [place]: independent Roll Right, Level of [place]: independent Supine to Sit, Level of [place]: independent Sit to Supine, Level of [place]: independent Safety Issues: decreased use of legs for bridging/pushing Impairments: impaired balance Transfers pt demonstraiting Independent to mod I transfers this AM Bed-Chair, Level of [place]: independent Chair-Bed, Level of [place]: modified independent Ebp-Xwvfo-Sca, Assistive Device: none Sit-Stand, Level of [place]: independent Stand-Sit, Level of [place]: independent Bvj-Jaalh-Ewr, Assistive Device: none Toilet, Level of [place]: modified independent Toilet, Assistive Device: none Walk-in shower, Level of [place]: modified independent Walk-in shower, Assistive Device: grab bars, shower chair Safety Issues: balance decreased during turns, weight-shifting ability decreased, sequencin g ability decreased Impairments: impaired balance OT Goal Review Date Most Recent Value STG Review Date 09/04/17 at 08/31/2017 1704 LTG Review Date 09/11/17 at 08/31/2017 1704 Grooming Goal Most Recent Value STG Status met at 09/01/2017 0851 STG Bradford Level supervised at 08/31/2017 1704 LTG Status met at 09/05/2017 0920 LTG Bradford Level modified independent at 08/31/2017 1704 LB Dressing Goal Most Recent Value STG Status met at 09/02/2017 0906 STG Bradford Level supervised at 08/31/2017 1704 LTG Status met at 09/08/2017 0743 LTG Bradford Level modified independent at 08/31/2017 1704 Toilet Transfer Goal Most Recent Value STG Status met at 09/01/2017 0851 STG Bradford Level supervised at 08/31/2017 1704 LTG Status met at 09/06/2017 0908 LTG [place] Level modified independent at 08/31/2017 1704 Tub/Shower Transfer Goal Most Recent Value Tub/Shower Type walk in shower stall at 09/05/2017 0920 STG Status met at 09/02/2017 0906 STG Bradford Level contact guard assist at 08/31/2017 1704 STG Assistive Device shower chair, grab bars at 09/01/2017 1558 LTG Status met at 09/07/2017 0740 LTG Bradford Level -- [Distant supervision] at 09/05/2017 0920 [...] oriented times 3. Denies pain or discomfort. 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 Pt is ind in room. LBM on the 30. No neuro deficits noted. lan of [facility], [place] - Jackeline Bentley, Speech Pathologist - 09/08/2017 [...] more past history facts today. Pt and [employer] discussed compensatory strategies for improved memory, attention, and communication. [employer] discussed with pt finding a hobby or activity for improved cognitive stimulation at home. [employer] rec's continued cognitive linguisti c therapies to address attention, memory, word finding, and compensatory strategies for impr nichole memory and attention. 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 memory, moderate impairment, short term memory Executive Function Skills: moderate impairment, impulsivity, insight/awareness issues Auditory Comprehension Able to follow 2-step directions with multiple conponents Cognition Goal Most Recent Value STG Status continued at 09/08/2017 1716 STG Pt will increase immediate memory skills with 80% accuracy at 09/08/2017 171 Additional Goals #1 [employer] Most Recent Value STG Status continued at 09/08/2017 171 STG Pt will increase use of compensatory strategies to 75% accuracy at 09/08/2017 171 Additional Goals #2 [employer] Most Recent Value STG Status continued at 09/08/2017 171 STG Pt will increase focused attention to 80% accuracy. at 09/08/2017 1716 Electronically signed by: Jackeline Bentley Speech Pathologist, 09/08/2017 17:21 lan o f [place] - Odessa Anguiano, OPERATING MANAGER - 09/08/2017 4:33 PM PDTFormatting of this [...] Assistive Device: none Roll Left, Level of Bradford: independent Roll Right, Level of [place]: independent Supine to Sit, Level of [place]: independent Sit to Supine, Level of [place]: independent Safety Issues: decreased use of legs for bridging/pushing, impaired trunk control for bed m obility Impairments: postural control impaired, pain, impaired balance, strength decreased Transfers Pt demos safe and indepedent transfers with cane and without AD. Bed-Chair, Level of Bradford: independent Chair-Bed, Level of Bradford: independent Dok-Acmps-Jci, Assistive Device: none Sit-Stand, Level of [place]: modified independent Stand-Sit, Level of [place]: modified independent Wxc-Ozleh-Uxa, Assistive Device: cane (straight, single point) Safety Issues: balance decreased during turns, weight-shifting ability decreased, sequencin g ability decreased Impairments: impaired balance, postural control impaired, strength decreased Gait outside on grass incline, rocks and wide depth stairs. Level of Bradford: modified independent Assistive Device: cane (straight, single point) Distance (feet): 1000 Gait Deviations: step length decreased, pta-qo-dpsvj clearance decreased, weight-shifting a bility decreased Impairments: strength decreased, impaired balance, coordination impaired, postural control impaired Therapeutic Exercise outside on uneven grass and incline. mod I Other exercises (description): scifit 10 min PT Goal Review Date Most Recent Value STG Review Date 09/03/17 at 08/31/2017 1545 LTG Review Date 09/12/17 at 08/31/2017 1545 Smvmxm-Mob-Jncjht Goal Most Recent Value STG Status met at 09/02/2017 1500 STG [place] Level modified independent at 08/31/2017 1545 STG Assistive Device none at 08/31/2017 1545 Exk-Jocch-Fxn Goal Most Recent Value STG Status met at 09/03/2017 0859 STG [place] Level supervised at 08/31/2017 1545 STG Assistive Device none at 08/31/2017 1545 LTG Status met at 09/07/2017 1554 LTG [place] Level independent at 08/31/2017 1545 LTG Assistive Device cane (straight, single point) at 09/03/2017 0859 Gait Goal Most Recent Value STG Status met at 09/03/2017 0859 STG Bradford Level stand by assist at 08/31/2017 1545 STG Assistive Device none, cane (straight, single point) at 08/31/2017 1545 STG Distance (feet) 200' at 08/31/2017 1545 STG Comments none vs SPC at 08/31/2017 1545 LTG Status progressing at 09/08/2017 1624 LTG [place] Level independent at 08/31/2017 1545 LTG Assistive Device cane (straight, single point) at 09/03/2017 0859 Stair Goal Most Recent Value STG Status met at 09/03/2017 0859 STG [place] Level supervised at 08/31/2017 1545 STG Assistive Device 2 rails at 08/31/2017 1545 STG Number of Stairs 12 at 08/31/2017 1545 LTG Status met at 09/08/2017 1430 LTG [place] Level modified independent at 08/31/2017 1545 LTG [...] Assistive Device: none Roll Left, Level of [place]: independent Roll Right, Level of [place]: independent Supine to Sit, Level of [place]: independent Sit to Supine, Level of [place]: independent Safety Issues: decreased use of legs for bridging/pushing, impaired trunk control for bed m obility Impairments: postural control impaired, pain, impaired balance, strength decreased Transfers Pt demos safe and indepedent transfers with cane and without AD. Bed-Chair, Level of [place]: independent Chair-Bed, Level of [place]: independent Gsl-Zjeky-Umf, Assistive Device: none Sit-Stand, Level of [place]: modified independent Stand-Sit, Level of [place]: modified independent Sdw-Qlsyh-Dwa, Assistive Device: cane (straight, single point) Safety Issues: balance decreased during turns, weight-shifting ability decreased, sequencin g ability decreased Impairments: impaired balance, postural control impaired, strength decreased Gait outside on grass incline, rocks and wide depth stairs. Level of [place]: modified independent Assistive Device: cane (straight, single point) Distance (feet): 1000 Gait Deviations: step length decreased, kil-ds-pxeeh clearance decreased, weight-shifting a bility decreased Impairments: strength decreased, impaired balance, coordination impaired, postural control impaired Stairs no LOB, demo safe technique with AD this am session. Number of Stairs: 12 Handrail Location: right side (ascending) Level of Bradford: modified independent Assistive Device: 1 rail Technique Used: step to step (descending) Safety Issues: balance decreased during turns Impairments: impaired balance, coordination impaired PT Goal Review Date Most Recent Value STG Review Date 09/03/17 at 08/31/2017 1545 LTG Review Date 09/12/17 at 08/31/2017 1545 Vzfugn-Gmq-Ogkqpd Goal Most Recent Value STG Status met at 09/02/2017 1500 STG [place] Level modified independent at 08/31/2017 1545 STG Assistive Device none at 08/31/2017 1545 Chk-Tljyx-Jkt Goal Most Recent Value STG Status met at 09/03/2017 0859 STG Bradford Level supervised at 08/31/2017 1545 STG Assistive Device none at 08/31/2017 1545 LTG Status met at 09/07/2017 1554 LTG [place] Level independent at 08/31/2017 1545 LTG Assistive Device cane (straight, single point) at 09/03/2017 0859 Gait Goal Most Recent Value STG Status met at 09/03/2017 0859 STG Bradford Level stand by assist at 08/31/2017 1545 STG Assistive Device none, cane (straight, single point) at 08/31/2017 1545 STG Distance (feet) 200' at 08/31/2017 1545 STG Comments none vs SPC at 08/31/2017 1545 LTG Status progressing at 09/08/2017 1430 LTG [place] Level independent at 08/31/2017 1545 LTG Assistive Device cane (straight, single point) at 09/03/2017 0859 Stair Goal Most Recent Value STG Status met at 09/03/2017 0859 STG [place] Level supervised at 08/31/2017 1545 STG Assistive Device 2 rails at 08/31/2017 1545 STG Number of Stairs 12 at 08/31/2017 1545 LTG Status met at 09/08/2017 1430 LTG [place] Level modified independent at 08/31/2017 1545 LTG [...] when indicated. Reevaluate goal by 09-09-2017. 9. Dnenis will maintain a patent airway and effective [...] home. Laundry Training, OT Eval Level Of Bradford: Laundry: modified independent Physical Assist/Nonphysical Assist: Laundry: none Assistive Device: straight cane Special Training: Completed community re-entry therapeutic activity w/ SBA/cues OT Goal Review Date Most Recent Value STG Review Date 09/04/17 at 08/31/2017 1704 LTG Review Date 09/11/17 at 08/31/2017 1704 Grooming Goal Most Recent Value STG Status met at 09/01/2017 0851 STG Bradford Level supervised at 08/31/2017 1704 LTG Status met at 09/05/2017 0920 LTG [place] Level modified independent at 08/31/2017 1704 LB Dressing Goal Most Recent Value STG Status met at 09/02/2017 0906 STG [place] Level supervised at 08/31/2017 1704 LTG Status met at 09/08/2017 0743 LTG [place] Level modified independent at 08/31/2017 1704 Toilet Transfer Goal Most Recent Value STG Status met at 09/01/2017 0851 STG [place] Level supervised at 08/31/2017 1704 LTG Status met at 09/06/2017 0908 LTG [place] Level modified independent at 08/31/2017 1704 Tub/Shower Transfer Goal Most Recent Value Tub/Shower Type walk in shower stall at 09/05/2017 0920 STG Status met at 09/02/2017 0906 STG [place] Level contact guard assist at 08/31/2017 1704 STG Assistive Device shower chair, grab bars at 09/01/2017 1558 LTG Status met at 09/07/2017 0740 LTG [place] Level -- [Distant supervision] at 09/05/2017 0920 [...] 15:52 lan of Care - Nahid Aragon, MILLER DISTILLERY - 09/08/2017 8:48 AM PDTFormatting of this [...] groomiming after shower . Bathing, Level of [place]: modified independent Assistive Device: grab bars, hand-held shower head, shower chair with back Bathing Assess/Train, Position: sitting, standing Bathing Assess/Train, Impairments: impaired balance, decreased flexibility . UB Dressing, Level of [place]: independent Assistive Device: none UB Dressing Assess/Train, Position: standing UB Dressing Assess/Train, Impairments: impaired balance, motor control impaired . LB Dressing, Level of [place]: modified independent Assistive Device: none LB Dressing Assess/Train, Position: sitting, standing, supported standing LB Dressing Assess/Train, Impairments: impaired balance, motor control impaired, decreased flexibility, postural control impaired . Toileting, Level of [place]: modified independent Assistive Device: grab bar Toileting Assess/Train, Position: sitting, standing Toileting Assess/Train, Impairments: impaired balance . Grooming, Level of [place]: independent Assistive Device: none Grooming Assess/Train, Position: standing Grooming Assess/Train, Impairments: impaired balance Self-Feeding, Level of [place]: independent Assistive Device: none Self-Feeding Assess/Train, Position: sitting Self-Feeding Assess/Train, Impairments: (deficits in STM and problem solving) Transfers Pt demonstrated Mod I transfers through out morning session Bed-Chair, Level of [place]: modified independent Chair-Bed, Level of [place]: modified independent Kaq-Fbhzs-Jzq, Assistive Device: none Sit-Stand, Level of [place]: modified independent Stand-Sit, Level of [place]: modified independent Dpr-Celtz-Jbm, Assistive Device: none Toilet, Level of [place]: modified independent Toilet, Assistive Device: cane (quad), grab bars Walk-in shower, Level of [place]: modified independent Walk-in shower, Assistive Device: cane [...] STG Status met at 09/01/2017 0851 STG [place] Level supervised at 08/31/2017 1704 LTG Status met at 09/05/2017 0920 LTG [place] Level modified independent at 08/31/2017 1704 LB Dressing Goal Most Recent Value STG Status met at 09/02/2017 0906 STG [place] Level supervised at 08/31/2017 1704 LTG Status met at 09/08/2017 0743 LTG [place] Level modified independent at 08/31/2017 1704 Toilet Transfer Goal Most Recent Value STG Status met at 09/01/2017 0851 STG [place] Level supervised at 08/31/2017 1704 LTG Status met at 09/06/2017 0908 LTG [place] Level modified independent at 08/31/2017 1704 Tub/Shower Transfer Goal Most Recent Value Tub/Shower Type walk in shower stall at 09/05/2017 0920 STG Status met at 09/02/2017 0906 STG [place] Level contact guard assist at 08/31/2017 1704 STG Assistive Device shower chair, grab bars at 09/01/2017 1558 LTG Status met at 09/07/2017 0740 LTG [place] Level -- [Distant supervision] at 09/05/2017 0920 [...] 4, last BM 09/07, voids without difficulty, pie cutter strong dorsi plantar strong, no neuro defic [...] Assistive Device: none Roll Left, Level of [place]: modified independent Roll Right, Level of [place]: modified independent Supine to Sit, Level of [place]: modified independent Sit to Supine, Level of [place]: modified independent Safety Issues: decreased use of legs for bridging/pushing, impaired trunk control for bed m obility Impairments: postural control impaired, pain, impaired balance, strength decreased Transfers Pt demos safe and indepedent transfers with cane and without AD. Bed-Chair, Level of [place]: modified independent Chair-Bed, Level of [place]: modified independent Ppl-Potfa-Zii, Assistive Device: none Sit-Stand, Level of [place]: modified independent Stand-Sit, Level of [place]: modified independent Yvn-Posxa-Coi, Assistive Device: none Safety Issues: balance decreased during turns, weight-shifting ability decreased, sequencin g ability decreased Impairments: impaired balance, postural control impaired, strength decreased Gait outside on grass incline, and steps. No LOB on uneven ground used spc. Level of [place]: supervised Assistive Device: cane (straight, single point) Distance (feet): 1000 Gait Deviations: step length decreased, cca-yg-wzdsh clearance decreased, weight-shifting a bility decreased Impairments: strength decreased, impaired balance, coordination impaired, postural control impaired Stairs no LOB, demo safe technique with AD this am session. Number of Stairs: 12 Handrail Location: right side (ascending) Level of [place]: supervised Assistive Device: 1 rail Technique Used: step over step (descending), step over step (ascending) Safety Issues: balance decreased during turns Impairments: impaired balance, coordination impaired Functional Endurance multiple coughing spells. PT Goal Review Date Most Recent Value STG Review Date 09/03/17 at 08/31/2017 1545 LTG Review Date 09/12/17 at 08/31/2017 1545 Yfkbsv-Sfq-Hrqspj Goal Most Recent Value STG Status met at 09/02/2017 1500 STG [place] Level modified independent at 08/31/2017 1545 STG Assistive Device none at 08/31/2017 1545 Mee-Tyzvu-Qhc Goal Most Recent Value STG Status met at 09/03/2017 0859 STG [place] Level supervised at 08/31/2017 1545 STG Assistive Device none at 08/31/2017 1545 LTG Status met at 09/07/2017 1554 LTG [place] Level independent at 08/31/2017 1545 LTG Assistive Device cane (straight, single point) at 09/03/2017 0859 Gait Goal Most Recent Value STG Status met at 09/03/2017 0859 STG [place] Level stand by assist at 08/31/2017 1545 STG Assistive Device none, cane (straight, single point) at 08/31/2017 1545 STG Distance (feet) 200' at 08/31/2017 1545 STG Comments none vs SPC at 08/31/2017 1545 LTG Status progressing at 09/07/2017 1554 LTG [place] Level independent at 08/31/2017 1545 LTG Assistive Device cane (straight, single point) at 09/03/2017 0859 Stair Goal Most Recent Value STG Status met at 09/03/2017 0859 STG [place] Level supervised at 08/31/2017 1545 STG Assistive Device 2 rails at 08/31/2017 1545 STG Number of Stairs 12 at 08/31/2017 1545 LTG Status progressing at 09/07/2017 1554 LTG [place] Level modified independent at 08/31/2017 1545 LTG [...] all qureshi. Worked with PT, OT and [employer] today. Jin states that he would like to go lori e as soon as possible. lan of Care - Wy Dayanna casillas OT - 09/07/2017 2:07 PM [...] Applied Dycem to cane handle for improved hair blender. Pt amb ulated w/ both in place [...] temp. Laundry Training, OT Eval Level Of [place]: Laundry: verbal cues required Physical Assist/Nonphysical Assist: [...] doesn't hear everything someone says at times. [employer] discussed with pt using compensatory strategies to increase conversation ability - clarification, repetition, and requesting partner to speak louder. [employer] discussed with pt u sing compensatory strategies for improved attention and memory. Pt reports limited cognitive stimulation activities or hobbies and could not explain typical daily activities. [employer] rec's continued cognitive linguistic therapies to address attention, memory, word finding, and co mpensatory strategies for improved memory and attention. 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 Executive Memory: decreased recall, recent events, moderate impairment, short term me priya, mild impairment, halfway memory Executive Function Skills: moderate impairment, impulsivity, insight/awareness issues Cognition Goal Most Recent Value STG Status continued at 09/07/2017 1050 STG Pt will increase immediate memory skills with 80% accuracy at 09/07/2017 1050 Additional Goals #1 [employer] Most Recent Value STG Status continued at 09/07/2017 1050 STG Pt will increase use of compensatory strategies to 75% accuracy at 09/07/2017 1050 Additional Goals #2 [employer] Most Recent Value STG Status continued at 09/07/2017 1050 STG Pt will increase focused attention to 80% accuracy. at 09/07/2017 1050 Electronically signed by: Jackeline Bentley, Speech Pathologist, 09/07/2017 12:26 lan o f Care - Odessa Anguiano, OPERATING MANAGER - 09/07/2017 10:17 AM PDTFormatting of this [...] Assistive Device: none Roll Left, Level of [place]: modified independent Roll Right, Level of [place]: modified independent Supine to Sit, Level of [place]: modified independent Sit to Supine, Level of [place]: modified independent Safety Issues: decreased use of legs for bridging/pushing, impaired trunk control for bed m obility Impairments: postural control impaired, pain, impaired balance, strength decreased Transfers Pt demos safe and indepedent transfers with cane and without AD. Bed-Chair, Level of [place]: modified independent Chair-Bed, Level of [place]: modified independent Szq-Ywqer-Ngj, Assistive Device: none Sit-Stand, Level of [place]: modified independent Stand-Sit, Level of [place]: modified independent Woh-Ysaqn-Jzl, Assistive Device: none Safety Issues: balance decreased during turns, weight-shifting ability decreased, sequencin g ability decreased Impairments: impaired balance, postural control impaired, strength decreased Gait Gait training without AD; focus on quick turns, head movements, side stepping, backwards wa lking (both combined with mental or physical dual task), catch/throw while sidestepping and walking backwards, uneven surface gait, etc. Level of [place]: supervised Assistive Device: cane (straight, single point) Distance (feet): 450 Gait Deviations: step length decreased, ixu-pd-nxnfz clearance decreased, weight-shifting a bility decreased Impairments: strength decreased, impaired balance, coordination impaired, postural control impaired Stairs no LOB, demo safe technique with AD this am session. Number of Stairs: 12 Handrail Location: right side (ascending) Level of [place]: modified independent Assistive Device: 1 rail Technique [...] LTG Review Date 09/12/17 at 08/31/2017 1545 Hydsnd-Oih-Lwiuie Goal Most Recent Value STG Status met at 09/02/2017 1500 STG [place] Level modified independent at 08/31/2017 1545 STG Assistive Device none at 08/31/2017 1545 Tuu-Fwqex-Pou Goal Most Recent Value STG Status met at 09/03/2017 0859 STG [place] Level supervised at 08/31/2017 1545 STG Assistive Device none at 08/31/2017 1545 LTG Status progressing at 09/07/2017 1010 LTG [place] Level independent at 08/31/2017 1545 LTG Assistive Device cane (straight, single point) at 09/03/2017 0859 Gait Goal Most Recent Value STG Status met at 09/03/2017 0859 STG [place] Level stand by assist at 08/31/2017 1545 STG Assistive Device none, cane (straight, single point) at 08/31/2017 1545 STG Distance (feet) 200' at 08/31/2017 1545 STG Comments none vs SPC at 08/31/2017 1545 LTG Status progressing at 09/07/2017 1010 LTG Bradford Level independent at 08/31/2017 1545 LTG Assistive Device cane (straight, single point) at 09/03/2017 0859 Stair Goal Most Recent Value STG Status met at 09/03/2017 0859 STG [place] Level supervised at 08/31/2017 1545 STG Assistive Device 2 rails at 08/31/2017 1545 STG Number of Stairs 12 at 08/31/2017 1545 LTG Status progressing at 09/07/2017 1010 LTG [place] Level modified independent at 08/31/2017 1545 LTG [...] Evaluation: lan of Care - Iggy Kidd, [employer]ER [employer] - 09/07/2017 9:48 AM PDT Problem: Patient [...] might be dif ferent from the original. [facility] Inpatient Rehabilitation Facility Individualized Overall Plan of Care Weekly Team Conference Patient Identification Dennis Cabrera is a 82 y.o. male. : 1935 Admit Date: 08/31/2017 Attending Provider: Juan Rowell MD Primary Care Physician: Josr Henriquez MD Admitting Diagnosis: CVA Team Conference Date: 09/08/2017 Medical Prognosis and need for Rehabilitation Physician oversight and anticipated Rehabilit ation Physician interventions: [place] for functional progress is good. Physician Summary: [...] information from all of the Medical Rehabilitation mathematics faculty member's assessments and reports as we synthesized [...] Management: FIM BladderScore: 6; Evidence: 6 Medication Bradford # Bladder accidents last 7 days: 0 Bladder Management Goal: will be continent of bladder Bowel Management: FIM Bowel Score: 6; Evidence: 6 Medication Bradford # Bowel accidents last 7 days: 0 [...] Transfer Score: 6; Evidence: 6 Grab Bar Bradford, 6 Amb Device Bradford FIM Tub/Shower Transfer Score: 5 (Distant); Evidence: 6 Extra Time, 6 Shower Chair Bradford Locomotion FIM Walk Score: 5; Evidence: 5 Supervise/150 ft+ FIM Distance Walked(feet): 150 feet FIM Wheelchair Score: ; Evidence: FIM Stairs Score :5; Evidence: 5 Safety Sup 12-14 Stairs, Handrail PT GOALS PT Goal Review Date Most Recent Value STG Review Date 09/03/17 at 08/31/2017 1545 LTG Review Date 09/12/17 at 08/31/2017 1545 Cszlcp-Fzq-Rtptii Goal Most Recent Value STG Status met at 09/02/2017 1500 STG [place] Level modified independent at 08/31/2017 1545 STG Assistive Device none at 08/31/2017 1545 Ntn-Xdzza-Uzx Goal Most Recent Value STG Status met at 09/03/2017 0859 STG Bradford Level supervised at 08/31/2017 1545 STG Assistive Device none at 08/31/2017 1545 LTG Status progressing at 09/07/2017 1010 LTG [place] Level independent at 08/31/2017 1545 LTG Assistive Device cane (straight, single point) at 09/03/2017 0859 Gait Goal Most Recent Value STG Status met at 09/03/2017 0859 STG Bradford Level stand by assist at 08/31/2017 1545 STG Assistive Device none, cane (straight, single point) at 08/31/2017 1545 STG Distance (feet) 200' at 08/31/2017 1545 STG Comments none vs SPC at 08/31/2017 1545 LTG Status progressing at 09/07/2017 1010 LTG [place] Level independent at 08/31/2017 1545 LTG Assistive Device cane (straight, single point) at 09/03/2017 0859 Stair Goal Most Recent Value STG Status met at 09/03/2017 0859 STG Bradford Level supervised at 08/31/2017 1545 STG Assistive Device 2 rails at 08/31/2017 1545 STG Number of Stairs 12 at 08/31/2017 1545 LTG Status progressing at 09/07/2017 1010 LTG [place] Level modified independent at 08/31/2017 1545 LTG [...] STG Status met at 09/01/2017 0851 STG Bradford Level supervised at 08/31/2017 1704 LTG Status met at 09/05/2017 0920 LTG Bradford Level modified independent at 08/31/2017 1704 LB Dressing Goal Most Recent Value STG Status met at 09/02/2017 0906 STG Bradford Level supervised at 08/31/2017 1704 LTG Status progressing at 09/07/2017 0740 LTG Bradford Level modified independent at 08/31/2017 1704 Toilet Transfer Goal Most Recent Value STG Status met at 09/01/2017 0851 STG Bradford Level supervised at 08/31/2017 1704 LTG Status met at 09/06/2017 0908 LTG Bradford Level modified independent at 08/31/2017 1704 Tub/Shower Transfer Goal Most Recent Value Tub/Shower Type walk in shower stall at 09/05/2017 0920 STG Status met at 09/02/2017 0906 STG Bradford Level contact guard assist at 08/31/2017 1704 STG Assistive Device shower chair, grab bars at 09/01/2017 1558 LTG Status met at 09/07/2017 0740 LTG Bradford Level -- [Distant supervision] at 09/05/2017 0920 [...] doesn't hear everything someone says at times. [employer] discussed with pt using compensatory strategies to increase conversation ability- clarification, repetition, and req uesting partner to speak louder. [employer] discussed with pt using compensatory strategies for imp roved attention and memory. Pt reports limited cognitive stimulation activities or hobbies a nd could not explain typical daily activities. [employer] rec's continued cognitive linguistic ther apies to [...] Approp 91-99% Dysphagia/Swallow: Regular textures. Thin liquids [employer] Goals Cognition Goal Most Recent Value STG Status continued at 09/07/2017 1050 STG Pt will increase immediate memory skills with 80% accuracy at 09/07/2017 1050 Additional Goals #1 [employer] Most Recent Value STG Status continued at 09/07/2017 1050 STG Pt will increase use of compensatory strategies to 75% accuracy at 09/07/2017 1050 Additional Goals #2 [employer] Most Recent Value STG Status continued at [...] completed. 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 UB Dressing, Level of Bradford: modified independent Assistive Device: none UB Dressing Assess/Train, Position: sitting UB Dressing Assess/Train, Impairments: impaired balance, motor control impaired distant supervision, again pt donned underwear and pants from supported standing, leand aga inst counter. He sat to don socks and shoes LB Dressing, Level of Bradford: supervised (distant supervision) Assistive Device: none LB Dressing Assess/Train, Position: sitting, standing, supported standing LB Dressing Assess/Train, Impairments: impaired balance, motor control impaired, decreased flexibility, postural control impaired Mod I in room. Toileting, Level of Bradford: modified independent Assistive Device: grab bar Toileting Assess/Train, Position: sitting, standing Toileting Assess/Train, Impairments: impaired balance Retrieved toiletries for post showering needs. Grooming, Level of Bradford: modified independent Assistive Device: none Grooming Assess/Train, Position: standing Grooming Assess/Train, Impairments: impaired balance Transfers Bed-Chair, Level of Bradford: modified independent Chair-Bed, Level of Bradford: modified independent Usf-Llwaw-Jmt, Assistive Device: cane (straight, single point) Sit-Stand, Level of Bradford: modified independent Stand-Sit, Level of Bradford: modified independent Ldl-Apxbj-Uwi, Assistive Device: cane (straight, single point) Toilet, Level of Bradford: modified independent Toilet, Assistive Device: cane (straight, single point), grab bars Walk-in shower, Level of Bradford: supervised (distant supervision) Walk-in shower, Assistive Device: cane (straight, single point), grab bars, shower chair Impairments: impaired balance, strength decreased OT Goal Review Date Most Recent Value STG Review Date 09/04/17 at 08/31/2017 1704 LTG Review Date 09/11/17 at 08/31/2017 1704 Grooming Goal Most Recent Value STG Status met at 09/01/2017 0851 STG Bradford Level supervised at 08/31/2017 1704 LTG Status met at 09/05/2017 0920 LTG Bradford Level modified independent at 08/31/2017 1704 LB Dressing Goal Most Recent Value STG Status met at 09/02/2017 0906 STG Bradford Level supervised at 08/31/2017 1704 LTG Status progressing at 09/07/2017 0740 LTG Bradford Level modified independent at 08/31/2017 1704 Toilet Transfer Goal Most Recent Value STG Status met at 09/01/2017 0851 STG Bradford Level supervised at 08/31/2017 1704 LTG Status met at 09/06/2017 0908 LTG Bradford Level modified independent at 08/31/2017 1704 Tub/Shower Transfer Goal Most Recent Value Tub/Shower Type walk in shower stall at 09/05/2017 0920 STG Status met at 09/02/2017 0906 STG Bradford Level contact guard assist at 08/31/2017 1704 STG Assistive Device shower chair, grab bars at 09/01/2017 1558 LTG Status met at 09/07/2017 0740 LTG Bradford Level -- [Distant supervision] at 09/05/2017 0920 [...] Assistive Device: none Roll Left, Level of Bradford: modified independent Roll Right, Level of Bradford: modified independent Supine to Sit, Level of Bradford: modified independent Sit to Supine, Level of Bradford: modified independent Safety Issues: decreased use of legs for bridging/pushing, impaired trunk control for bed m obility Impairments: postural control impaired, pain, impaired balance, strength decreased Transfers Pt demos safe and indepedent transfers with cane and without AD. Bed-Chair, Level of Bradford: modified independent Chair-Bed, Level of Bradford: modified independent Mae-Ecsmg-Giq, Assistive Device: cane (straight, single point) Sit-Stand, Level of Bradford: modified independent Stand-Sit, Level of Bradford: modified independent Nse-Oebnc-Svc, Assistive Device: cane (straight, single point) Safety Issues: balance decreased during turns, weight-shifting ability decreased, sequencin g ability decreased Impairments: impaired balance, postural control impaired, strength decreased Gait Gait training without AD; focus on quick turns, head movements, side stepping, backwards wa lking (both combined with mental or physical dual task), catch/throw while sidestepping and walking backwards, uneven surface gait, etc. Level of Bradford: stand by assist Assistive Device: none Distance (feet): > 1000 ft total but with several seated rests due to fatigue. Gait Deviations: step length decreased, arr-fu-zoahu clearance decreased, weight-shifting a bility decreased Impairments: strength decreased, impaired balance, coordination impaired, postural control impaired Stairs no LOB, demo safe technique with AD this am session. Number of Stairs: 12 Handrail Location: left side (ascending) Level of Bradford: modified independent Assistive Device: 1 rail, cane [...] LTG Review Date 09/12/17 at 08/31/2017 1545 Irekph-Bpp-Yenwtd Goal Most Recent Value STG Status met at 09/02/2017 1500 STG [place] Level modified independent at 08/31/2017 1545 STG Assistive Device none at 08/31/2017 1545 Qrt-Gojdi-Idu Goal Most Recent Value STG Status met at 09/03/2017 0859 STG Bradford Level supervised at 08/31/2017 1545 STG Assistive Device none at 08/31/2017 1545 LTG Status progressing at 09/06/2017 1645 LTG Bradford Level independent at 08/31/2017 1545 LTG Assistive Device cane (straight, single point) at 09/03/2017 0859 Gait Goal Most Recent Value STG Status met at 09/03/2017 0859 STG Bradford Level stand by assist at 08/31/2017 1545 STG Assistive Device none, cane (straight, single point) at 08/31/2017 1545 STG Distance (feet) 200' at 08/31/2017 1545 STG Comments none vs SPC at 08/31/2017 1545 LTG Status progressing at 09/06/2017 1645 LTG Bradford Level independent at 08/31/2017 1545 LTG Assistive Device cane (straight, single point) at 09/03/2017 0859 Stair Goal Most Recent Value STG Status met at 09/03/2017 0859 STG Bradford Level supervised at 08/31/2017 1545 STG Assistive Device 2 rails at 08/31/2017 1545 STG Number of Stairs 12 at 08/31/2017 1545 LTG Status progressing at 09/04/2017 1350 LTG [place] Level modified independent at 08/31/2017 1545 LTG [...] carp als. Pt indicated he had less hair blender on his cane w/ its use than [...] recall. 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 Bed-Chair, Level of Bradford: modified independent Chair-Bed, Level of Bradford: modified independent Bli-Vzkmx-Wow, Assistive Device: cane (straight, single point) Sit-Stand, Level of Bradford: modified independent Stand-Sit, Level of Bradford: modified independent Oyp-Puuci-Vay, Assistive Device: cane (straight, single point) Safety [...] as counting backwards by 2s. Level of Bradford: contact guard assist, stand by assist Assistive Device: (Trial SPC and then no AD) Distance (feet): > 1000 ft total but with 3-4 seated rests due to fatigue throughout sessio n. Gait Deviations: step length decreased, nme-sz-nlwjx clearance decreased, weight-shifting a bility decreased Impairments: [...] LTG Review Date 09/12/17 at 08/31/2017 1545 Vvkcvp-Ony-Ebwlbv Goal Most Recent Value STG Status met at 09/02/2017 1500 STG [place] Level modified independent at 08/31/2017 1545 STG Assistive Device none at 08/31/2017 1545 Rbf-Nqeab-Gpa Goal Most Recent Value STG Status met at 09/03/2017 0859 STG Bradford Level supervised at 08/31/2017 1545 STG Assistive Device none at 08/31/2017 1545 LTG Status progressing at 09/05/2017 1055 LTG Bradford Level independent at 08/31/2017 1545 LTG Assistive Device cane (straight, single point) at 09/03/2017 0859 Gait Goal Most Recent Value STG Status met at 09/03/2017 0859 STG [place] Level stand by assist at 08/31/2017 1545 STG Assistive Device none, cane (straight, single point) at 08/31/2017 1545 STG Distance (feet) 200' at 08/31/2017 1545 STG Comments none vs SPC at 08/31/2017 1545 LTG Status progressing at 09/05/2017 1055 LTG [place] Level independent at 08/31/2017 1545 LTG Assistive Device cane (straight, single point) at 09/03/2017 0859 Stair Goal Most Recent Value STG Status met at 09/03/2017 0859 STG Bradford Level supervised at 08/31/2017 1545 STG Assistive Device 2 rails at 08/31/2017 1545 STG Number of Stairs 12 at 08/31/2017 1545 LTG Status progressing at 09/04/2017 1350 LTG [place] Level modified independent at 08/31/2017 1545 LTG [...] PT, 09/06/2017 18:32 lan of Care - [facility] Dayanna alicea OT - 09/06/2017 9:38 [...] difficulty managing, water shampoo. Bathing, Level of Bradford: supervised (Distant) Assistive Device: hand-held shower head, shower chair with back, grab bars Bathing Assess/Train, Position: sitting, standing Bathing Assess/Train, Impairments: impaired balance, decreased flexibility Retrieved clothing. UB Dressing, Level of Bradford: modified independent Assistive Device: none UB Dressing Assess/Train, Position: sitting UB Dressing Assess/Train, Impairments: impaired balance, motor control impaired Retrieved clothing. Donned underwear while in standing, but recognized he should have been seated. Donned pants from seated position afterwards. LB Dressing, Level of Bradford: supervised (Distant) Assistive Device: none LB Dressing Assess/Train, Position: sitting, standing LB Dressing Assess/Train, Impairments: impaired balance, motor control impaired, decreased flexibility, postural control impaired Self-Feeding, Level of Bradford: independent Assistive Device: none Self-Feeding Assess/Train, Position: [...] deficits, unawa re of consequences of deficits Short/Penitentiary Memory: mild impairment, short term memory, moderate impairment, short term memory, decreased recall, recent events, requires occasional cues Executive Function Skills: organizational issues, planning issues, lack of self monitoring , impulsivity, insight/awareness issues Bed Mobility Assistive Device: none Roll Left, Level of Bradford: modified independent Roll Right, Level of Bradford: modified independent Supine to Sit, Level of Bradford: independent Sit to Supine, Level of Bradford: independent Safety Issues: decreased use of legs for bridging/pushing Impairments: postural control impaired Transfers Using SPC in room, mod I. Bed-Chair, Level of Bradford: modified independent Chair-Bed, Level of Bradford: modified independent Miv-Hkuhx-Nfz, Assistive Device: cane (straight, single point) Sit-Stand, Level of Bradford: modified independent Stand-Sit, Level of Bradford: modified independent Qii-Xduzh-Pyk, Assistive Device: cane (straight, single point) Toilet, Level of Bradford: modified independent Toilet, Assistive Device: cane (straight, single point), grab bars Walk-in shower, Level of Bradford: supervised (Distant) Walk-in shower, Assistive Device: cane [...] STG Status met at 09/01/2017 0851 STG Bradford Level supervised at 08/31/2017 1704 LTG Status met at 09/05/2017 0920 LTG Bradford Level modified independent at 08/31/2017 1704 LB Dressing Goal Most Recent Value STG Status met at 09/02/2017 0906 STG Bradford Level supervised at 08/31/2017 1704 LTG Status progressing at 09/06/2017 0908 LTG Bradford Level modified independent at 08/31/2017 1704 Toilet Transfer Goal Most Recent Value STG Status met at 09/01/2017 0851 STG Bradford Level supervised at 08/31/2017 1704 LTG Status met at 09/06/2017 0908 LTG Bradford Level modified independent at 08/31/2017 1704 Tub/Shower Transfer Goal Most Recent Value Tub/Shower Type walk in shower stall at 09/05/2017 0920 STG Status met at 09/02/2017 0906 STG Bradford Level contact guard assist at 08/31/2017 1704 STG Assistive Device shower chair, grab bars at 09/01/2017 1558 LTG Status progressing at 09/06/2017 0908 LTG Bradford Level -- [Distant supervision] at 09/05/2017 0920 [...] of Care - James nelson, Seymour A, [employer]ER [employer]ERY - 09/06/2017 8:22 AM PDT Problem: Patient [...] Frequent rounding done. lan of Care - Jessenai Krueger RN - 09/05/2017 4:27 PM PDTProblem: [...] safe technique this session. Bed-Chair, Level of Bradford: modified independent Chair-Bed, Level of Bradford: modified independent Jad-Tstra-Nwi, Assistive Device: cane (straight, single point) Sit-Stand, Level of Bradford: modified independent Stand-Sit, Level of Bradford: modified independent Vty-Vdigs-Nqn, Assistive Device: cane (straight, single point) Safety Issues: balance decreased during turns, weight-shifting ability decreased Impairments: impaired balance, postural control impaired Gait Gait training focused on incline/decline and uneven surface training, as reports that pt has to walk up/down hill on gravel surface juan f. [address] then [address] to get to [facility] where they live. Gait training focused on simulating this. Level of Bradford: contact guard assist Assistive Device: cane (straight, single point) Gait Deviations: step length decreased, ahn-tu-tytbk clearance decreased, weight-shifting a bility decreased Impairments: [...] LTG Review Date 09/12/17 at 08/31/2017 1545 Quywux-Jqr-Ieustc Goal Most Recent Value STG Status met at 09/02/2017 1500 STG [place] Level modified independent at 08/31/2017 1545 STG Assistive Device none at 08/31/2017 1545 Yko-Dgpnd-Wyz Goal Most Recent Value STG Status met at 09/03/2017 0859 STG Bradford Level supervised at 08/31/2017 1545 STG Assistive Device none at 08/31/2017 1545 LTG Status progressing at 09/05/2017 1055 LTG Bradford Level independent at 08/31/2017 1545 LTG Assistive Device cane (straight, single point) at 09/03/2017 0859 Gait Goal Most Recent Value STG Status met at 09/03/2017 0859 STG Bradford Level stand by assist at 08/31/2017 1545 STG Assistive Device none, cane (straight, single point) at 08/31/2017 1545 STG Distance (feet) 200' at 08/31/2017 1545 STG Comments none vs SPC at 08/31/2017 1545 LTG Status progressing at 09/05/2017 1055 LTG [place] Level independent at 08/31/2017 1545 LTG Assistive Device cane (straight, single point) at 09/03/2017 0859 Stair Goal Most Recent Value STG Status met at 09/03/2017 0859 STG Bradford Level supervised at 08/31/2017 1545 STG Assistive Device 2 rails at 08/31/2017 1545 STG Number of Stairs 12 at 08/31/2017 1545 LTG Status progressing at 09/04/2017 1350 LTG [place] Level modified independent at 08/31/2017 1545 LTG [...] Jordan, PT, 09/05/2017 20:08 [facility] 09/05/2017 1:52 PM PDTProblem: [...] an addt' l family training session, including [employer], prior to d/c home. Occupational Therapy Discharge [...] (most noticeable when distracted). Bed-Chair, Level of Bradford: supervised Chair-Bed, Level of Bradford: supervised Uwm-Mptxr-Rxt, Assistive Device: cane (straight, single point) Sit-Stand, Level of Bradford: modified independent Stand-Sit, Level of Bradford: modified independent Vmf-Apdsi-Bwg, Assistive Device: cane (straight, single point) Safety [...] and turning during gait training. Level of Bradford: supervised Assistive Device: cane (straight, single point) Distance (feet): 350 Gait Deviations: step length decreased, ern-mw-xkupa clearance decreased, weight-shifting a bility decreased Impairments: [...] LTG Review Date 09/12/17 at 08/31/2017 1545 Xdadgf-Jyl-Xdjejb Goal Most Recent Value STG Status met at 09/02/2017 1500 STG [place] Level modified independent at 08/31/2017 1545 STG Assistive Device none at 08/31/2017 1545 Kua-Wclvd-Ezq Goal Most Recent Value STG Status met at 09/03/2017 0859 STG Bradford Level supervised at 08/31/2017 1545 STG Assistive Device none at 08/31/2017 1545 LTG Status progressing at 09/05/2017 1055 LTG [place] Level independent at 08/31/2017 1545 LTG Assistive Device cane (straight, single point) at 09/03/2017 0859 Gait Goal Most Recent Value STG Status met at 09/03/2017 0859 STG Bradford Level stand by assist at 08/31/2017 1545 STG Assistive Device none, cane (straight, single point) at 08/31/2017 1545 STG Distance (feet) 200' at 08/31/2017 1545 STG Comments none vs SPC at 08/31/2017 1545 LTG Status progressing at 09/05/2017 1055 LTG [place] Level independent at 08/31/2017 1545 LTG Assistive Device cane (straight, single point) at 09/03/2017 0859 Stair Goal Most Recent Value STG Status met at 09/03/2017 0859 STG Bradford Level supervised at 08/31/2017 1545 STG Assistive Device 2 rails at 08/31/2017 1545 STG Number of Stairs 12 at 08/31/2017 1545 LTG Status progressing at 09/04/2017 1350 LTG [place] Level modified independent at 08/31/2017 1545 LTG [...] 19:52 lan of Care - Von Dowd, [employer] - 09/05/2017 10:39 AM PDTProblem: Patient Care [...] that shanmpoo bottle was Bathing, Level of Bradford: supervised, set up required, verbal cues required Assistive Device: hand-held shower head, shower chair with back, grab bars Bathing Assess/Train, Position: sitting, standing Bathing Assess/Train, Impairments: impaired balance, coordination impaired, decreased flexi bility Retrieved clothing. UB Dressing, Level of Bradford: modified independent Assistive Device: none UB Dressing [...] to complete dressing. LB Dressing, Level of Bradford: verbal cues required, supervised Assistive Device: none LB Dressing Assess/Train, Position: sitting, standing LB Dressing Assess/Train, Impairments: impaired balance, motor control impaired, decreased flexibility, postural control impaired distant supervision Toileting, Level of Bradford: supervised Assistive Device: none Toileting Assess/Train, Position: standing Toileting Assess/Train, Impairments: impaired balance Retrieved toiletries for post showering needs. 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 Executive Memory: moderate impairment, short term memory, requires frequent cues, sev ere impairment, halfway memory, decreased recall, biographical info Executive Function Skills: organizational issues, planning issues, lack of self monitoring , impulsivity, insight/awareness issues Bed Mobility no physcial assist in<>out of bed Assistive Device: none Roll Left, Level of [place]: modified independent Roll Right, Level of Bradford: modified independent Supine to Sit, Level of Bradford: independent Sit to Supine, Level of [place]: independent Safety Issues: cognitive deficits limit understanding Impairments: coordination impaired Transfers Reduced awareness of balance deficits, especially when dual-tasking, turning. Bed-Chair, Level of [place]: supervised Chair-Bed, Level of [place]: supervised Bqv-Ovmes-Pok, Assistive Device: cane (straight, single point) Sit-Stand, Level of [place]: modified independent Stand-Sit, Level of [place]: modified independent Unu-Dgpzy-Vyk, Assistive Device: cane (straight, single point) Toilet, Level of [place]: supervised Toilet, Assistive Device: cane (straight, single point), grab bars Walk-in shower, Level of [place]: supervised Walk-in shower, Assistive Device: cane (straight, [...] STG Status met at 09/01/2017 0851 STG [place] Level supervised at 08/31/2017 1704 LTG Status met at 09/05/2017 0920 LTG [place] Level modified independent at 08/31/2017 1704 LB Dressing Goal Most Recent Value STG Status met at 09/02/2017 0906 STG [place] Level supervised at 08/31/2017 1704 LTG Status progressing at 09/05/2017 0920 LTG [place] Level modified independent at 08/31/2017 1704 Toilet Transfer Goal Most Recent Value STG Status met at 09/01/2017 0851 STG [place] Level supervised at 08/31/2017 1704 LTG Status progressing at 09/05/2017 0920 LTG [place] Level modified independent at 08/31/2017 1704 Tub/Shower Transfer Goal Most Recent Value Tub/Shower Type walk in shower stall at 09/05/2017 0920 STG Status met at 09/02/2017 0906 STG [place] Level contact guard assist at 08/31/2017 1704 STG Assistive Device shower chair, grab bars at 09/01/2017 1558 LTG Status revised at 09/05/2017 0920 LTG [place] Level -- [Distant supervision] at 09/05/2017 0920 [...] lan of Care - Shonda Tali grady, TEA AND SPICE SUPERVISOR - 09/04/2017 5:29 PM PDTProblem: Discharge Planning [...] Assistive Device: none Roll Left, Level of [place]: modified independent Roll Right, Level of [place]: modified independent Supine to Sit, Level of [place]: independent Sit to Supine, Level of [place]: independent Safety Issues: cognitive deficits limit understanding [...] 1423 Electronically signed by: Dayanna Allison OT, 09/04/2017 17:58 lan of Care - Col Odessa cotto, OPERATING MANAGER - 09/04/2017 2:00 PM PDT Problem: Patient [...] safe ambulator For more information, please visit: [email or web address] Dennis will benefit from continued therapeutic intervention [...] Assistive Device: none Roll Left, Level of [place]: independent Roll Right, Level of [place]: independent Supine to Sit, Level of [place]: independent Sit to Supine, Level of [place]: independent Safety Issues: cognitive deficits limit understanding Impairments: coordination impaired Transfers supervision for safety d/t episodes of LOB when pt quickly turns. Bed-Chair, Level of [place]: supervised Chair-Bed, Level of [place]: supervised Qsd-Ikmgn-Dix, Assistive Device: cane (straight, single point) Sit-Stand, Level of [place]: modified independent Stand-Sit, Level of [place]: modified independent Ixn-Gvnrd-Quu, Assistive Device: cane (straight, single point) Safety Issues: balance decreased during turns Impairments: impaired balance, coordination impaired, postural control impaired Gait Minimal LOB when pt quickly turns mostly to (R). Cues to slow down when turning. trial 4W W. Pt demo improve stability especially when turning but pt does not want to use AD at home . Level of Bradford: supervised Assistive Device: none Distance (feet): 500 Gait Deviations: step length decreased, upx-gs-isdci clearance decreased Impairments: strength decreased, impaired balance, coordination impaired, postural control impaired Stairs no LOB, demo safe technique with AD this am session. Number of Stairs: 4 Handrail Location: left side (ascending) Level of Bradford: modified independent Assistive Device: 1 rail, cane [...] LTG Review Date 09/12/17 at 08/31/2017 1545 Lljbjz-Yqc-Gwvbyo Goal Most Recent Value STG Status met at 09/02/2017 1500 STG [place] Level modified independent at 08/31/2017 1545 STG Assistive Device none at 08/31/2017 1545 Dvt-Cizcq-Luu Goal Most Recent Value STG Status met at 09/03/2017 0859 STG [place] Level supervised at 08/31/2017 1545 STG Assistive Device none at 08/31/2017 1545 LTG Status progressing at 09/04/2017 1350 LTG [place] Level independent at 08/31/2017 1545 LTG Assistive Device cane (straight, single point) at 09/03/2017 0859 Gait Goal Most Recent Value STG Status met at 09/03/2017 0859 STG [place] Level stand by assist at 08/31/2017 1545 STG Assistive Device none, cane (straight, single point) at 08/31/2017 1545 STG Distance (feet) 200' at 08/31/2017 1545 STG Comments none vs SPC at 08/31/2017 1545 LTG Status progressing at 09/04/2017 1350 LTG [place] Level independent at 08/31/2017 1545 LTG Assistive Device cane (straight, single point) at 09/03/2017 0859 Stair Goal Most Recent Value STG Status met at 09/03/2017 0859 STG [place] Level supervised at 08/31/2017 1545 STG Assistive Device 2 rails at 08/31/2017 1545 STG Number of Stairs 12 at 08/31/2017 1545 LTG Status progressing at 09/04/2017 1350 LTG [place] Level modified independent at 08/31/2017 1545 LTG [...] vided information on pt's PLOF. 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 Bed-Chair, Level of [place]: supervised Chair-Bed, Level of [place]: supervised Yqs-Tjdkm-Yii, Assistive Device: cane (straight, single point) Sit-Stand, Level of [place]: modified independent Stand-Sit, Level of [place]: modified independent Cea-Iqajn-Kie, Assistive Device: cane (straight, single point) Safety Issues: balance decreased during turns Impairments: impaired balance, coordination impaired, postural control impaired Gait Minimal LOB when pt quickly turns mostly to (R). Cues to slow down when turning. trial 4W W. Pt demo improve stability especially when turning but pt does not want to use AD at home . Level of [place]: stand by assist, verbal cues required Assistive Device: cane (straight, single point) Distance (feet): 500' + 200' Gait Deviations: step length decreased, qgz-fq-ljyus clearance decreased Impairments: strength decreased, impaired balance, coordination impaired, postural control impaired Stairs no LOB, demo safe technique with AD this am session. Number of Stairs: 12 Handrail Location: left side (ascending) Level of Bradford: supervised Assistive Device: 1 rail, cane (straight, [...] LTG Review Date 09/12/17 at 08/31/2017 1545 Ikwsgu-Cce-Ndyebb Goal Most Recent Value STG Status met at 09/02/2017 1500 STG [place] Level modified independent at 08/31/2017 1545 STG Assistive Device none at 08/31/2017 1545 Zow-Mhzcy-Zet Goal Most Recent Value STG Status met at 09/03/2017 0859 STG [place] Level supervised at 08/31/2017 1545 STG Assistive Device none at 08/31/2017 1545 LTG Status progressing at 09/04/2017 0944 LTG [place] Level independent at 08/31/2017 1545 LTG Assistive Device cane (straight, single point) at 09/03/2017 0859 Gait Goal Most Recent Value STG Status met at 09/03/2017 0859 STG [place] Level stand by assist at 08/31/2017 1545 STG Assistive Device none, cane (straight, single point) at 08/31/2017 1545 STG Distance (feet) 200' at 08/31/2017 1545 STG Comments none vs SPC at 08/31/2017 1545 LTG Status progressing at 09/04/2017 0944 LTG [place] Level independent at 08/31/2017 1545 LTG Assistive Device cane (straight, single point) at 09/03/2017 0859 Stair Goal Most Recent Value STG Status met at 09/03/2017 0859 STG [place] Level supervised at 08/31/2017 1545 STG Assistive Device 2 rails at 08/31/2017 1545 STG Number of Stairs 12 at 08/31/2017 1545 LTG Status progressing at 09/04/2017 0944 LTG [place] Level modified independent at 08/31/2017 1545 LTG [...] at 09/04/2017 0944 Electronically signed by: ANURADHA TANG, PT, 09/04/2017 10:45 lan of Care - [...] required for st anding. Bathing, Level of [place]: supervised, verbal cues required Assistive Device: hand-held shower head, shower chair with back Bathing Assess/Train, Position: sitting, standing Bathing Assess/Train, Impairments: impaired balance, coordination impaired set-up assist only. UB Dressing, Level of [place]: set up required Assistive Device: none UB Dressing Assess/Train, Position: sitting UB Dressing Assess/Train, Impairments: impaired balance, motor control impaired supervision and cueing for safety to perform tasks in sitting. LB Dressing, Level of [place]: verbal cues required, supervised Assistive Device: none LB Dressing Assess/Train, Position: sitting, standing LB Dressing Assess/Train, Impairments: impaired balance, motor control impaired distant supervision Toileting, Level of [place]: supervised Assistive Device: none Toileting Assess/Train, Position: standing Toileting Assess/Train, Impairments: impaired balance distant supervision for brushing teeth, hair, shvaing and washing face Grooming, Level of [place]: supervised Assistive Device: none Grooming Assess/Train, Position: standing Grooming Assess/Train, Impairments: impaired balance Pt able to remove lids and open packets, but pt may need help selecting his menu d/t items missed like butter for toast, jelly, and sugar for his hot ceral. Self-Feeding, Level of [place]: stand by assist Assistive Device: none Self-Feeding Assess/Train, Position: sitting Self-Feeding Assess/Train, Impairments: (deficits in STM and problem solving) Bed Mobility no physcial assist in<>out of bed Assistive Device: none Roll Left, Level of [place]: modified independent Roll Right, Level of [place]: modified independent Supine to Sit, Level of [place]: independent Sit to Supine, Level of [place]: independent Safety Issues: cognitive deficits limit understanding Impairments: coordination impaired Transfers supervision for generalized safety. cueing to slow down and for use of cane as pt would oft en set aside. Bed-Chair, Level of [place]: supervised Chair-Bed, Level of [place]: supervised Qpt-Qgctl-Act, Assistive Device: cane (straight, single point) Sit-Stand, Level of [place]: modified independent Stand-Sit, Level of [place]: modified independent Ivn-Rpebf-Zpz, Assistive Device: cane (straight, single point) Toilet, Level of [place]: supervised Toilet, Assistive Device: cane (straight, single point), grab bars Walk-in shower, Level of [place]: supervised, verbal cues required Walk-in shower, Assistive [...] STG Status met at 09/01/2017 0851 STG [place] Level supervised at 08/31/2017 1704 LTG Status progressing at 09/04/2017 0816 LTG [place] Level modified independent at 08/31/2017 1704 LB Dressing Goal Most Recent Value STG Status met at 09/02/2017 0906 STG [place] Level supervised at 08/31/2017 1704 LTG Status progressing at 09/04/2017 0816 LTG [place] Level modified independent at 08/31/2017 1704 Toilet Transfer Goal Most Recent Value STG Status met at 09/01/2017 0851 STG [place] Level supervised at 08/31/2017 1704 LTG Status progressing at 09/04/2017 0816 LTG [place] Level modified independent at 08/31/2017 1704 Tub/Shower Transfer Goal Most Recent Value Tub/Shower Type tub/shower combo at 08/31/2017 1704 STG Status met at 09/02/2017 0906 STG [place] Level contact guard assist at 08/31/2017 1704 STG Assistive Device shower chair, grab bars at 09/01/2017 1558 LTG Status met at 09/03/2017 1430 LTG [place] Level supervised at 08/31/2017 1704 Additional Goals [...] slightly unsteady. Slept well, guifenison given for cloth desizing range tender cough with good relief. lan of [facility] [place] - Logan Fuller RN - 09/03/2017 5:30 [...] a ble to name 5 items 2x. [employer] provided education of compensatory strategies for improved word finding. [employer] discussed with pt compensatory strategies for improved [...] for increased call light use in room. LAB[employer]ER [employer] rec's c ontinued cognitive linguistic therapies to address attention, word finding, generative namin g, and compensatory strategies for improved memory and attention. 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 Memory: moderate impairment, short term memory, requires frequent cues, sev ere impairment, halfway memory, decreased recall, biographical info Cognition Goal Most Recent Value STG Status continued at 09/03/2017 171 STG Pt will increase immediate memory skills with 80% accuracy at 09/03/20171711 Additional Goals #1 [employer] Most Recent Value STG Status continued at 09/03/2017 171 STG Pt will increase use of compensatory strategies to 75% accuracy at 09/03/2017 171 Additional Goals #2 [employer]ER [employer] Most Recent Value STG Status continued at 09/03/2017 171 STG Pt will increase focused attention to 80% accuracy. at 09/03/2017 1712 Electronically signed by: Jackeline Bentley, Speech Pathologist, 09/03/2017 17:17 lan o Dat Brizuela, [employer]ER [employer] - 09/03/2017 5:00 PM PDTFormatting of this [...] shower chair w/ supervision Bathing, Level of [place]: stand by assist Assistive Device: hand-held shower head, shower chair with back Bathing Assess/Train, Position: sitting, standing Bathing Assess/Train, Impairments: impaired balance, coordination impaired dressed u/B w/ set up/supervised UB Dressing, Level of [place]: set up required, supervised Assistive Device: none UB Dressing Assess/Train, Position: sitting UB Dressing Assess/Train, Impairments: impaired balance, motor control impaired Decreased safety awarenes noted and requiered vc's to sit down on shower chair as he attemp jaqueline to doff/uche pants standing unsteadily LB Dressing, Level of [place]: verbal cues required, supervised Assistive Device: none LB Dressing Assess/Train, Position: sitting, standing LB Dressing Assess/Train, Impairments: impaired balance, motor control impaired Combed hair standing at sink supervised Grooming, Level of [place]: supervised Assistive Device: none Grooming Assess/Train, Position: standing Grooming Assess/Train, Impairments: impaired balance Functional Endurance Good Bed Mobility T/f'd on/off bed independent Assistive Device: none Supine to Sit, Level of [place]: independent Sit to Supine, Level of [place]: independent Safety Issues: cognitive deficits limit understanding Impairments: coordination impaired Transfers Ambulated to/from walk in shower w/ SBA/cues to slow down at corners and completed shower t /f>shower chair SBA/cues Walk-in shower, Level of [place]: verbal cues required, stand by assist Walk-in [...] STG Status met at 09/01/2017 0851 STG [place] Level supervised at 08/31/2017 1704 LTG Status progressing at 09/03/2017 1430 LTG [place] Level modified independent at 08/31/2017 1704 LB Dressing Goal Most Recent Value STG Status met at 09/02/2017 0906 STG [place] Level supervised at 08/31/2017 1704 LTG Status progressing at 09/03/2017 1430 LTG [place] Level modified independent at 08/31/2017 1704 Toilet Transfer Goal Most Recent Value STG Status met at 09/01/2017 0851 STG [place] Level supervised at 08/31/2017 1704 LTG Status progressing at 09/03/2017 1009 LTG [place] Level modified independent at 08/31/2017 1704 Tub/Shower Transfer Goal Most Recent Value Tub/Shower Type tub/shower combo at 08/31/2017 1704 STG Status met at 09/02/2017 0906 STG [place] Level contact guard assist at 08/31/2017 1704 STG Assistive Device shower chair, grab bars at 09/01/2017 1558 LTG Status met at 09/03/2017 1430 LTG [place] Level supervised at 08/31/2017 1704 Additional Goals [...] on this therapist arrival. 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 recall, biographical info Bed Mobility T/f'd on/off bed independent Assistive Device: none Supine to Sit, Level of [place]: independent Sit to Supine, Level of [place]: independent Safety Issues: cognitive deficits limit understanding Impairments: coordination impaired Transfers Toilet, Level of [place]: verbal cues required, supervised Toilet, Assistive Device: cane (straight, single point), grab bars Safety Issues: balance decreased during turns Impairments: impaired balance, coordination impaired, postural control impaired OT Goal Review Date Most Recent Value STG Review Date 09/04/17 at 08/31/2017 1704 LTG Review Date 09/11/17 at 08/31/2017 1704 Grooming Goal Most Recent Value STG Status met at 09/01/2017 0851 STG [place] Level supervised at 08/31/2017 1704 LTG Status progressing at 09/03/2017 1430 LTG [place] Level modified independent at 08/31/2017 1704 LB Dressing Goal Most Recent Value STG Status met at 09/02/2017 0906 STG [place] Level supervised at 08/31/2017 1704 LTG Status progressing at 09/03/2017 1430 LTG [place] Level modified independent at 08/31/2017 1704 Toilet Transfer Goal Most Recent Value STG Status met at 09/01/2017 0851 STG [place] Level supervised at 08/31/2017 1704 LTG Status progressing at 09/03/2017 1009 LTG [place] Level modified independent at 08/31/2017 1704 Tub/Shower Transfer Goal Most Recent Value Tub/Shower Type tub/shower combo at 08/31/2017 1704 STG Status met at 09/02/2017 0906 STG [place] Level contact guard assist at 08/31/2017 1704 STG Assistive Device shower chair, grab bars at 09/01/2017 1558 LTG Status met at 09/03/2017 1430 LTG [place] Level supervised at 08/31/2017 1704 Additional Goals [...] at level safe fo r home discharge, [facility] indicating significant impairment with basic functional mobility [...] Assistive Device: none Roll Left, Level of [place]: independent Roll Right, Level of [place]: independent Supine to Sit, Level of [place]: independent Sit to Supine, Level of [place]: independent Safety Issues: cognitive deficits limit understanding Impairments: coordination impaired Transfers supervision for safety d/t LOB with quick turns Bed-Chair, Level of [place]: supervised Chair-Bed, Level of [place]: supervised Mfq-Lsddl-Tcm, Assistive Device: cane (straight, single point) Sit-Stand, Level of [place]: supervised Stand-Sit, Level of [place]: supervised Xsb-Voitp-Vur, Assistive Device: cane (straight, single point) Safety Issues: balance decreased during turns Impairments: impaired balance, coordination impaired, postural control impaired Gait mostly SBA and required CGA when turning d/t occasional LOB. Walked on diff.floor surface walked across the grass, on/off curb, inclines/declines Level of [place]: contact guard assist Assistive Device: none Distance (feet): 200' x 2+ 400' Gait Deviations: step length decreased, csm-ny-bnhth clearance decreased Impairments: strength decreased, impaired balance, coordination impaired, postural control impaired Stairs no LOB, demo safe technique with AD this am session. Number of Stairs: 12 Handrail Location: left side (ascending) Level of Bradford: supervised Assistive Device: 1 rail, cane (straight, [...] LTG Review Date 09/12/17 at 08/31/2017 1545 Ppwyra-Kqx-Rmurgo Goal Most Recent Value STG Status met at 09/02/2017 1500 STG [place] Level modified independent at 08/31/2017 1545 STG Assistive Device none at 08/31/2017 1545 Fhp-Jeudt-Nrp Goal Most Recent Value STG Status met at 09/03/2017 0859 STG [place] Level supervised at 08/31/2017 1545 STG Assistive Device none at 08/31/2017 1545 LTG Status progressing at 09/03/2017 1305 LTG [place] Level independent at 08/31/2017 1545 LTG Assistive Device cane (straight, single point) at 09/03/2017 0859 Gait Goal Most Recent Value STG Status met at 09/03/2017 0859 STG [place] Level stand by assist at 08/31/2017 1545 STG Assistive Device none, cane (straight, single point) at 08/31/2017 1545 STG Distance (feet) 200' at 08/31/2017 1545 STG Comments none vs SPC at 08/31/2017 1545 LTG Status progressing at 09/03/2017 1305 LTG [place] Level independent at 08/31/2017 1545 LTG Assistive Device cane (straight, single point) at 09/03/2017 0859 Stair Goal Most Recent Value STG Status met at 09/03/2017 0859 STG [place] Level supervised at 08/31/2017 1545 STG Assistive Device 2 rails at 08/31/2017 1545 STG Number of Stairs 12 at 08/31/2017 1545 LTG Status progressing at 09/03/2017 1305 LTG [place] Level modified independent at 08/31/2017 1545 LTG Assistive Device 2 rails at 08/31/2017 1545 LTG Number of Stairs 12 at 08/31/2017 1545 Additional Goal #1 PT Most Recent Value STG Status new at 08/31/2017 1545 STG Improve DGI score to 19 to dec.fall risk at 08/31/2017 1545 Electronically signed by: ANURADHA TANG, PT, 09/03/2017 15:06 lan of Care - Real Tang PT - 09/03/2017 8:58 AM PDTFormatting [...] Assistive Device: none Roll Left, Level of [place]: independent Roll Right, Level of [place]: independent Supine to Sit, Level of [place]: independent Sit to Supine, Level of [place]: independent Safety Issues: cognitive deficits limit understanding Impairments: coordination impaired Transfers Blocked practice in transfers to chair and to bathroom. distant supervision. Mild instabi lity noted but no LOB. Bed-Chair, Level of [place]: supervised Chair-Bed, Level of [place]: supervised Nsn-Vtbxt-Ram, Assistive Device: cane (straight, single point) Sit-Stand, Level of [place]: supervised Stand-Sit, Level of [place]: supervised Nlk-Ydwlj-Qhp, Assistive Device: none Safety Issues: balance decreased during turns Impairments: impaired balance, coordination impaired Gait Trial using SPC. Pt demonstrated improved balance with the AD. Pt had 1 episode of mod.LO B looking to the right when he turned his head but able to recover with CGA. Level of [place]: stand by assist Assistive Device: none Distance (feet): 400' x 2 Gait Deviations: step length decreased, dfz-mw-unltu clearance decreased Impairments: strength decreased, impaired balance, coordination impaired, postural control impaired Stairs no LOB, demo safe technique with AD this am session. Number of Stairs: 12 Handrail Location: left side (ascending) Level of Bradford: supervised Assistive Device: 1 rail, cane (straight, [...] LTG Review Date 09/12/17 at 08/31/2017 1545 Dbifen-Vtv-Lyaath Goal Most Recent Value STG Status met at 09/02/2017 1500 STG [place] Level modified independent at 08/31/2017 1545 STG Assistive Device none at 08/31/2017 1545 Rgu-Mpfve-Ujw Goal Most Recent Value STG Status met at 09/03/2017 0859 STG [place] Level supervised at 08/31/2017 1545 STG Assistive Device none at 08/31/2017 1545 LTG Status revised at 09/03/2017 0859 LTG [place] Level independent at 08/31/2017 1545 LTG Assistive Device cane (straight, single point) at 09/03/2017 0859 Gait Goal Most Recent Value STG Status met at 09/03/2017 0859 STG [place] Level stand by assist at 08/31/2017 1545 STG Assistive Device none, cane (straight, single point) at 08/31/2017 1545 STG Distance (feet) 200' at 08/31/2017 1545 STG Comments none vs SPC at 08/31/2017 1545 LTG Status revised at 09/03/2017 0859 LTG [place] Level independent at 08/31/2017 1545 LTG Assistive Device cane (straight, single point) at 09/03/2017 0859 Stair Goal Most Recent Value STG Status met at 09/03/2017 0859 STG Bradford Level supervised at 08/31/2017 1545 STG Assistive Device 2 rails at 08/31/2017 1545 STG Number of Stairs 12 at 08/31/2017 1545 LTG Status new at 08/31/2017 1545 LTG Bradford Level modified independent at 08/31/2017 1545 LTG [...] was distractible requiring re- direction. Pt and [employer]HOU[employer] discussed compensatory memory strategies. Pt reported he usually relie s on his brain for recall and generally does not write things down. Pt reported he and his w orly recently sold their house in [place] but could not recall where their new home is [place]. Pt reports limited cognitive stimulation activities or hobbies and could not explain ty pical daily activities. [employer] rec's continued cognitive linguistic therapies to address attent ion, word finding, generative naming, and compensatory strategies for improved memory and at tention. 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 Cognition Goal Most Recent Value STG Status continued at 09/02/2017 144 STG Pt will increase immediate memory skills with 80% accuracy at 09/02/2017 144 Additional Goals #1 [employer] Most Recent Value STG Status continued at 09/02/2017 144 STG Pt will increase use of compensatory strategies to 75% accuracy at 09/02/2017 144 Additional Goals #2 [employer] Most Recent Value STG Status continued at 09/02/2017 144 STG Pt will increase focused attention to 80% accuracy. at 09/02/2017 1447 Electronically signed by: Destiney Ghotra Speech Pathologist, 09/02/2017 14:55 lan of Care - Odessa Anguiano, OPERATING MANAGER - 09/02/2017 3:04 PM PDTFormatting of this [...] Assistive Device: none Roll Left, Level of Bradford: independent Roll Right, Level of Bradford: independent Supine to Sit, Level of Bradford: independent Sit to Supine, Level of Bradford: independent Safety Issues: cognitive deficits limit understanding Impairments: coordination impaired Transfers SBA for safety d/t impaired balance and dec.safety awareness. Bed-Chair, Level of Bradford: supervised Chair-Bed, Level of Bradford: supervised Kow-Zrorv-Lrw, Assistive Device: none Sit-Stand, Level of Bradford: supervised Stand-Sit, Level of Bradford: supervised Jgd-[id number]-Qkk, Assistive Device: none Safety Issues: balance decreased during turns Impairments: strength decreased, impaired balance, coordination impaired Gait amb on ramp. Level of Bradford: stand by assist Assistive Device: none Distance (feet): 300x 2 Gait Deviations: step length decreased, ofc-oh-diyub clearance decreased Impairments: strength decreased, impaired balance, [...] LTG Review Date 09/12/17 at 08/31/2017 1545 Eduooe-Sft-Fzwony Goal Most Recent Value STG Status met at 09/02/2017 1500 STG Bradford Level modified independent at 08/31/2017 1545 STG Assistive Device none at 08/31/2017 1545 Tfl-Eivmn-Qgg Goal Most Recent Value STG Status progressing at 09/02/2017 1500 STG Bradford Level supervised at 08/31/2017 1545 STG Assistive Device none at 08/31/2017 1545 LTG Status new at 08/31/2017 1545 LTG Bradford Level independent at 08/31/2017 1545 LTG Assistive Device none at 08/31/2017 1545 Gait Goal Most Recent Value STG Status progressing at 09/02/2017 1500 STG Bradford Level stand by assist at 08/31/2017 1545 STG Assistive Device none, cane (straight, single point) at 08/31/2017 1545 STG Distance (feet) 200' at 08/31/2017 1545 STG Comments none vs SPC at 08/31/2017 1545 LTG Status new at 08/31/2017 1545 LTG Bradford Level independent at 08/31/2017 1545 LTG Assistive Device none at 08/31/2017 1545 Stair Goal Most Recent Value STG Status progressing at 09/02/2017 1200 STG Bradford Level supervised at 08/31/2017 1545 STG Assistive Device 2 rails at 08/31/2017 1545 STG Number of Stairs 12 at 08/31/2017 1545 LTG Status new at 08/31/2017 1545 LTG Bradford Level modified independent at 08/31/2017 1545 LTG [...] control. Emphasis of session included d ynamometer hair blender strength testing, dexterity/FMC/speed testing using the 9-hole [...] and not yet able to mobilize at [facility] [place] for home discharge. Dennis will benefit from [...] final rinse, no LOB. Bathing, Level of Bradford: stand by assist Assistive Device: hand-held shower head, shower chair without back Bathing Assess/Train, Position: sitting, standing Bathing Assess/Train, Impairments: impaired balance, coordination impaired Pt reports he needs to wear same clothes today, he did not remember that he had clean under wear and socks in the closet. UB Dressing, Level of Bradford: stand by assist, verbal cues required Assistive Device: none UB Dressing Assess/Train, Position: sitting UB Dressing Assess/Train, Impairments: impaired balance, motor control impaired VC to sit to thread clothing over his feet. Pt attempted to thread from standing with 1 LOB , he caught himself and agreed to sit down. LB Dressing, Level of Bradford: stand by assist, verbal cues required Assistive Device: none LB Dressing Assess/Train, Position: sitting, standing LB Dressing Assess/Train, Impairments: impaired balance, motor control impaired (deficits i n STM and problem solving) Toileting, Level of Bradford: supervised Assistive Device: none Toileting Assess/Train, Position: sitting, standing Toileting Assess/Train, Impairments: impaired balance Grooming, Level of Bradford: supervised Assistive Device: none Grooming Assess/Train, Position: standing Grooming Assess/Train, Impairments: impaired balance Pt able to remove lids and open packets, but pt may need help selecting his menu d/t items missed like butter for toast, jelly, and sugar for his hot ceral. Self-Feeding, Level of Bradford: stand by assist Assistive Device: none Self-Feeding Assess/Train, Position: sitting Self-Feeding Assess/Train, Impairments: (deficits in STM and problem solving) IADLs had pt make a cup of tea. breakdown of how to use the microwave as well as how long is appr opriate to heat water. decreased safety awarness and sequencing noted. had pt then trial run using the brush washer/dryer. pt physcially able to open and close objects without noted LOB. Meal Preparation/Planning Training, OT Eval Level Of Bradford: Meal Prep: supervised Physical Assist/Nonphysical Assist: Meal Prep: verbal cues Assistive Device: none Housekeeping Training, OT Eval Level Of Bradford: Housekeeping: supervised Physical Assist/Nonphysical Assist: Housekeeping: verbal cues Assistive Device: none Bed Mobility no physcial assist provided Assistive Device: none Roll Left, Level of Bradford: modified independent Roll Right, Level of Bradford: modified independent Supine to Sit, Level of Bradford: modified independent Sit to Supine, Level of Bradford: modified independent Safety Issues: cognitive deficits limit understanding Impairments: coordination impaired Transfers supervision d/t impaired balance and decreased safety awareness. 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 Strength Test: Right: 28lbs ( skewed as pt has hx of finger and small finger aputation decreasing overall strength and hair blender) Left: 64lbs Interpretation: - Average and Standard [...] 37.7 (8.6) For more information, please visit: [email or web address] Goal Review Date Most Recent Value STG Review Date 09/04/17 at 08/31/2017 1704 LTG Review Date 09/11/17 at 08/31/2017 1704 Grooming Goal Most Recent Value STG Status met at 09/01/2017 0851 STG Bradford Level supervised at 08/31/2017 1704 LTG Status progressing at 09/02/2017 0906 LTG Bradford Level modified independent at 08/31/2017 1704 LB Dressing Goal Most Recent Value STG Status met at 09/02/2017 0906 STG Bradford Level supervised at 08/31/2017 1704 LTG Status progressing at 09/02/2017 0906 LTG Bradford Level modified independent at 08/31/2017 1704 Toilet Transfer Goal Most Recent Value STG Status met at 09/01/2017 0851 STG Bradford Level supervised at 08/31/2017 1704 LTG Status progressing at 09/02/2017 0906 LTG Bradford Level modified independent at 08/31/2017 1704 Tub/Shower Transfer Goal Most Recent Value Tub/Shower Type tub/shower combo at 08/31/2017 1704 STG Status met at 09/02/2017 0906 STG Bradford Level contact guard assist at 08/31/2017 1704 STG Assistive Device shower chair, grab bars at 09/01/2017 1558 LTG Status progressing at 09/02/2017 0906 LTG Bradford Level supervised at 08/31/2017 1704 Additional Goals [...] Assistive Device: none Roll Left, Level of Bradford: modified independent Roll Right, Level of Bradford: modified independent Supine to Sit, Level of Bradford: modified independent Sit to Supine, Level of Bradford: modified independent Safety Issues: cognitive deficits limit understanding Impairments: coordination impaired Transfers SBA for safety d/t impaired balance and dec.safety awareness. Bed-Chair, Level of Bradford: supervised Chair-Bed, Level of Bradford: supervised Tla-Qdzyh-Jyn, Assistive Device: none Sit-Stand, Level of Bradford: supervised Stand-Sit, Level of Bradford: supervised Tcs-Unxze-Tgw, Assistive Device: none Safety Issues: balance decreased during turns Impairments: strength decreased, impaired balance, coordination impaired Gait gait instability when turning, LOB to R but no falls. Curbs with verbal cues. Grass/uneve n ground no LOB CGA. Level of Bradford: stand by assist Assistive Device: none Distance (feet): 300 Gait Deviations: step length decreased, ykr-zf-yxrki clearance decreased Impairments: strength decreased, impaired balance, coordination impaired, postural control impaired Stairs decending, pt catches heel on steps cues to go slow and take tome to be safe. Number of Stairs: 12 Handrail Location: right side (ascending) Level of Bradford: stand by assist, verbal cues required Assistive [...] LTG Review Date 09/12/17 at 08/31/2017 1545 Hmprxo-Hwk-Jmewxg Goal Most Recent Value STG Status progressing at 09/02/2017 1200 STG Bradford Level modified independent at 08/31/2017 1545 STG Assistive Device none at 08/31/2017 1545 Slb-Gxetd-Swh Goal Most Recent Value STG Status progressing at 09/02/2017 1200 STG Bradford Level supervised at 08/31/2017 1545 STG Assistive Device none at 08/31/2017 1545 LTG Status new at 08/31/2017 1545 LTG Bradford Level independent at 08/31/2017 1545 LTG Assistive Device none at 08/31/2017 1545 Gait Goal Most Recent Value STG Status progressing at 09/02/2017 1200 STG Bradford Level stand by assist at 08/31/2017 1545 STG Assistive Device none, cane (straight, single point) at 08/31/2017 1545 STG Distance (feet) 200' at 08/31/2017 1545 STG Comments none vs SPC at 08/31/2017 1545 LTG Status new at 08/31/2017 1545 LTG Bradford Level independent at 08/31/2017 1545 LTG Assistive Device none at 08/31/2017 1545 Stair Goal Most Recent Value STG Status progressing at 09/02/2017 1200 STG [place] Level supervised at 08/31/2017 1545 STG Assistive Device 2 rails at 08/31/2017 1545 STG Number of Stairs 12 at 08/31/2017 1545 LTG Status new at 08/31/2017 1545 LTG [place] Level modified independent at 08/31/2017 1545 LTG [...] final rinse, no LOB. Bathing, Level of Bradford: stand by assist Assistive Device: hand-held shower head, shower chair without back Bathing Assess/Train, Position: sitting, standing Bathing Assess/Train, Impairments: impaired balance, coordination impaired Pt reports he needs to wear same clothes today, he did not remember that he had clean under wear and socks in the closet. UB Dressing, Level of Bradford: stand by assist, verbal cues required Assistive Device: none UB Dressing Assess/Train, Position: sitting UB Dressing Assess/Train, Impairments: impaired balance, motor control impaired VC to sit to thread clothing over his feet. Pt attempted to thread from standing with 1 LOB , he caught himself and agreed to sit down. LB Dressing, Level of Bradford: stand by assist, verbal cues required Assistive Device: none LB Dressing Assess/Train, Position: sitting, standing LB Dressing Assess/Train, Impairments: impaired balance, motor control impaired (deficits i n STM and problem solving) Toileting, Level of Bradford: supervised Assistive Device: none Toileting Assess/Train, Position: sitting, standing Toileting Assess/Train, Impairments: impaired balance Grooming, Level of Bradford: supervised Assistive Device: none Grooming Assess/Train, Position: standing Grooming Assess/Train, Impairments: impaired balance Pt able to remove lids and open packets, but pt may need help selecting his menu d/t items missed like butter for toast, jelly, and sugar for his hot ceral. Self-Feeding, Level of Bradford: stand by assist Assistive Device: none Self-Feeding Assess/Train, Position: sitting Self-Feeding Assess/Train, Impairments: (deficits in STM and problem solving) Transfers Bed-Chair, Level of Bradford: supervised Chair-Bed, Level of Bradford: supervised Zyt-Fibwj-Rhs, Assistive Device: none Sit-Stand, Level of Bradford: supervised Stand-Sit, Level of Bradford: supervised Yci-Lvvwp-Lnk, Assistive Device: none Toilet, Level of Bradford: supervised Toilet, Assistive Device: none Tub, Level of Bradford: supervised Tub, Assistive Device: grab bars Safety Issues: balance decreased during turns Impairments: impaired balance OT Goal Review Date Most Recent Value STG Review Date 09/04/17 at 08/31/2017 1704 LTG Review Date 09/11/17 at 08/31/2017 1704 Grooming Goal Most Recent Value STG Status met at 09/01/2017 0851 STG Bradford Level supervised at 08/31/2017 1704 LTG Status progressing at 09/02/2017 0906 LTG Bradford Level modified independent at 08/31/2017 1704 LB Dressing Goal Most Recent Value STG Status met at 09/02/2017 0906 STG Bradford Level supervised at 08/31/2017 1704 LTG Status progressing at 09/02/2017 0906 LTG Bradford Level modified independent at 08/31/2017 1704 Toilet Transfer Goal Most Recent Value STG Status met at 09/01/2017 0851 STG Bradford Level supervised at 08/31/2017 1704 LTG Status progressing at 09/02/2017 0906 LTG [place] Level modified independent at 08/31/2017 1704 Tub/Shower Transfer Goal Most Recent Value Tub/Shower Type tub/shower combo at 08/31/2017 1704 STG Status met at 09/02/2017 0906 STG Bradford Level contact guard assist at 08/31/2017 1704 STG Assistive Device shower chair, grab bars at 09/01/2017 1558 LTG Status progressing at 09/02/2017 0906 LTG Bradford Level supervised at 08/31/2017 1704 Electronically signed by: CHRIS Espinoza, 09/02/2017 10:31 atient Care Juan Brennan MD - 09/02/2017 9:06 AM PDTFormatting of this note might be di fferent from the original. [facility] Inpatient Rehabilitation Facility Individualized Overall Plan of Care Weekly Team Conference Patient Identification Dennis Hernándezsohan is a 82 y.o. male. : 1935 Admit Date: 08/31/2017 Attending Provider: Juan Rowell MD Primary Care Physician: Josr Henriquez MD Admitting Diagnosis: CVA Team Conference Date: 09/03/2017 Medical Prognosis and need for Rehabilitation Physician oversight and anticipated Rehabilit ation Physician interventions: [place] for functional progress is good. Physician Summary: [...] information from all of the Medical Rehabilitation mathematics faculty member's assessments and reports as we synthesized [...] Management: FIM BladderScore: 6; Evidence: 6 Medication Bradford # Bladder accidents last 7 days: 0 Bladder Management Goal: will be continent of bladder Bowel Management: FIM Bowel Score: 6; Evidence: 6 Medication Bradford # Bowel accidents last 7 days: 0 Bowel Management Goal: will have a BM every other day Nutrition Management: Patient eating 80-100% of a general diet. Patient eating well and meeting nutritional need s. Estimated nutritional needs: 5511-5116 kcal and 90-94 gm protein. BMI: 24.9. [...] are supervision for safety. 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 [...] LTG Review Date 09/12/17 at 08/31/2017 1545 Zcppdw-Jes-Ofjflv Goal Most Recent Value STG Status progressing at 09/01/2017 1354 STG Bradford Level modified independent at 08/31/2017 1545 STG Assistive Device none at 08/31/2017 1545 Fzd-Iqbqf-Rzx Goal Most Recent Value STG Status progressing at 09/01/2017 1354 STG Bradford Level supervised at 08/31/2017 1545 STG Assistive Device none at 08/31/2017 1545 LTG Status new at 08/31/2017 1545 LTG Bradford Level independent at 08/31/2017 1545 LTG Assistive Device none at 08/31/2017 1545 Gait Goal Most Recent Value STG Status progressing at 09/01/2017 1354 STG Bradford Level stand by assist at 08/31/2017 1545 STG Assistive Device none, cane (straight, single point) at 08/31/2017 1545 STG Distance (feet) 200' at 08/31/2017 1545 STG Comments none vs SPC at 08/31/2017 1545 LTG Status new at 08/31/2017 1545 LTG Bradford Level independent at 08/31/2017 1545 LTG Assistive Device none at 08/31/2017 1545 Stair Goal Most Recent Value STG Status continued at 09/01/2017 1354 STG Bradford Level supervised at 08/31/2017 1545 STG Assistive Device 2 rails at 08/31/2017 1545 STG Number of Stairs 12 at 08/31/2017 1545 LTG Status new at 08/31/2017 1545 LTG Bradford Level modified independent at 08/31/2017 1545 LTG [...] training. Pt will need 01/12 supervision at [facility] s writting. FIM Eating Score: 5; [...] STG Status met at 09/01/2017 0851 STG Bradford Level supervised at 08/31/2017 1704 LTG Status progressing at 09/02/2017 0906 LTG Bradford Level modified independent at 08/31/2017 1704 LB Dressing Goal Most Recent Value STG Status met at 09/02/2017 0906 STG Bradford Level supervised at 08/31/2017 1704 LTG Status progressing at 09/02/2017 0906 LTG Bradford Level modified independent at 08/31/2017 1704 Toilet Transfer Goal Most Recent Value STG Status met at 09/01/2017 0851 STG Bradford Level supervised at 08/31/2017 1704 LTG Status progressing at 09/02/2017 0906 LTG Bradford Level modified independent at 08/31/2017 1704 Tub/Shower Transfer Goal Most Recent Value Tub/Shower Type tub/shower combo at 08/31/2017 1704 STG Status met at 09/02/2017 0906 STG Bradford Level contact guard assist at 08/31/2017 1704 STG Assistive Device shower chair, grab bars at 09/01/2017 1558 LTG Status progressing at 09/02/2017 0906 LTG Bradford Level supervised at 08/31/2017 1704 Additional Goals [...] and was distractible requiring re-direction. 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 Pt reported he usually relies on his brain for recall and generally does not w rite things down. Pt reported he and his recently sold their house in [place] but cou ld not recall where their new home is located. Pt reports limited cognitive stimulation acti vities or hobbies and could not explain typical daily activities. LABORER [employer]OWERHOUSE rec's continued cognit jovita linguistic therapies to address attention, word finding, generative naming, and compensa tory strategies for improved memory and attention. 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 Post-Discharge Plan Setting: Home to [facility] where he lives with his spouse [...] PTA OT: KACI MondragonA/L: Briana Raygoza, OTR LABORER [employer]OWERHOUSE: BRANDON Lowry CM/SW: Tali Velarde MSW Following interdisciplinary discussion and planning, I fully agree with the above. lan of [facility] [place] - Frances Hope RN - 09/02/2017 2:01 [...] neuros stable and unchanged. Slept well. lan [facility] - Jolene Encarnacion, MILLER DISTILLERY - 09/01/2017 6:02 PM PDTProblem: Patient Care [...] STG Status met at 09/01/2017 0851 STG Bradford Level supervised at 08/31/2017 1704 LTG Status progressing at 09/01/2017 0851 LTG Bradford Level modified independent at 08/31/2017 1704 LB Dressing Goal Most Recent Value STG Status progressing at 09/01/2017 0851 STG Bradford Level supervised at 08/31/2017 1704 LTG Status progressing at 09/01/2017 0851 LTG Bradford Level modified independent at 08/31/2017 1704 Toilet Transfer Goal Most Recent Value STG Status met at 09/01/2017 0851 STG Bradford Level supervised at 08/31/2017 1704 LTG Status progressing at 09/01/2017 0851 LTG Bradford Level modified independent at 08/31/2017 1704 Tub/Shower Transfer Goal Most Recent Value Tub/Shower Type tub/shower combo at 08/31/2017 1704 STG Status progressing at 09/01/2017 0851 STG Bradford Level contact guard assist at 08/31/2017 1704 STG Assistive Device shower chair, grab bars at 09/01/2017 1558 LTG Status progressing at 09/01/2017 0851 LTG Bradford Level supervised at 08/31/2017 1704 Electronically signed [...] The patient's daughter is an OT at [facility] and can provide assistance to the patient post discharge. The pa tient does not have pets. The patient stated that he would be open to either home health or outpatient therapy post d ischarge. The patient's spouse does the majority of driving and can transport him to [facility]. This CM spoke to the patient about [...] Assistive Device: none Roll Left, Level of Bradford: modified independent Roll Right, Level of Bradford: modified independent Supine to Sit, Level of Bradford: supervised Sit to Supine, Level of Bradford: supervised Impairments: coordination impaired Transfers SBA for safety d/t impaired balance and dec.safety awareness. Bed-Chair, Level of Bradford: stand by assist Chair-Bed, Level of Bradford: stand by assist Bop-Yopxl-Ojl, Assistive Device: none Sit-Stand, Level of Bradford: stand by assist Stand-Sit, Level of Bradford: stand by assist Puy-Gzcur-Mpd, Assistive Device: none Safety Issues: balance decreased during turns Impairments: strength decreased, impaired balance, coordination impaired Gait gait instability when turning, LOB to R but no falls. Curbs with verbal cues. Grass/uneve n ground no LOB CGA. Level of Bradford: contact guard assist Assistive Device: none Distance (feet): 400 Gait Deviations: step length decreased, wuu-wt-lywra clearance decreased Impairments: strength decreased, impaired balance, coordination impaired, postural control impaired Stairs verbal cues to clear heel off the edge of the steps for safety, slower descending steps. s tep up/down 6" platform to simulate curb CGA Number of Stairs: 12 Handrail Location: both sides Level of Bradford: contact guard assist Assistive Device: 2 rails Technique Used: step over step (ascending), step over step (descending) Safety Issues: balance decreased during turns Impairments: strength decreased, impaired balance, coordination impaired Therapeutic Exercise Balance exercises: walk forward, walk backwards, sidestep, step over obstacles, single step /stair, grapevine, tandem walk forward, tandem walk backward, throw, catch Repetitions: put pt in suspended gait sports trainer with harnessa and boxed forward/back, wa lking forward/back with ball toss and catch,side stepping. Functional Endurance Good PT Goal Review Date Most Recent Value STG Review Date 09/03/17 at 08/31/2017 1545 LTG Review Date 09/12/17 at 08/31/2017 1545 Zraqqm-Zgc-Renmkc Goal Most Recent Value STG Status progressing at 09/01/2017 1354 STG Bradford Level modified independent at 08/31/2017 1545 STG Assistive Device none at 08/31/2017 1545 Yaw-Augfp-Rkv Goal Most Recent Value STG Status progressing at 09/01/2017 1354 STG [place] Level supervised at 08/31/2017 1545 STG Assistive Device none at 08/31/2017 1545 LTG Status new at 08/31/2017 1545 LTG Bradford Level independent at 08/31/2017 1545 LTG Assistive Device none at 08/31/2017 1545 Gait Goal Most Recent Value STG Status progressing at 09/01/2017 1354 STG [place] Level stand by assist at 08/31/2017 1545 STG Assistive Device none, cane (straight, single point) at 08/31/2017 1545 STG Distance (feet) 200' at 08/31/2017 1545 STG Comments none vs SPC at 08/31/2017 1545 LTG Status new at 08/31/2017 1545 LTG Bradford Level independent at 08/31/2017 1545 LTG Assistive Device none at 08/31/2017 1545 Stair Goal Most Recent Value STG Status continued at 09/01/2017 1354 STG [place] Level supervised at 08/31/2017 1545 STG Assistive Device 2 rails at 08/31/2017 1545 STG Number of Stairs 12 at 08/31/2017 1545 LTG Status new at 08/31/2017 1545 LTG Bradford Level modified independent at 08/31/2017 1545 LTG [...] y.o. male who is admitted for CVA. Cabinetmaker Supervisor visit was part of routine rounding. Spiritual [...] through his and children. 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 Spiritual Interventions: The floorworker distributor debriefed stress of illness, identified concerns, explored [...] Assistive Device: none Roll Left, Level of Bradford: modified independent Roll Right, Level of Bradford: modified independent Supine to Sit, Level of Bradford: supervised Sit to Supine, Level of Bradford: supervised Impairments: coordination impaired Transfers SBA for safety d/t impaired balance and dec.safety awareness. Bed-Chair, Level of Bradford: stand by assist Chair-Bed, Level of Bradford: stand by assist Xwc-Ribrq-Wis, Assistive Device: none Sit-Stand, Level of Bradford: stand by assist Stand-Sit, Level of [place]: stand by assist Jdp-Fjyjy-Cnb, Assistive Device: none Safety Issues: balance decreased during turns Impairments: strength decreased, impaired balance, coordination impaired Gait Gait instability when turning and distraction. Verbal cues for scanning to (R). Occasiona l LOB to (R) but able to recover by holding on to moreno railing Level of Bradford: contact guard assist Assistive Device: none Distance (feet): 250 Gait Deviations: step length decreased, vrg-rz-oaaiu clearance decreased Impairments: strength decreased, impaired balance, coordination impaired, postural control impaired PT Goal Review Date Most Recent Value STG Review Date 09/03/17 at 08/31/2017 1545 LTG Review Date 09/12/17 at 08/31/2017 1545 Gwdhin-Aur-Ipezhn Goal Most Recent Value STG Status progressing at 09/01/2017 1354 STG Bradford Level modified independent at 08/31/2017 1545 STG Assistive Device none at 08/31/2017 1545 Wnw-Ohpui-Sev Goal Most Recent Value STG Status progressing at 09/01/2017 1354 STG Bradford Level supervised at 08/31/2017 1545 STG Assistive Device none at 08/31/2017 1545 LTG Status new at 08/31/2017 1545 LTG Bradford Level independent at 08/31/2017 1545 LTG Assistive Device none at 08/31/2017 1545 Gait Goal Most Recent Value STG Status progressing at 09/01/2017 1354 STG [place] Level stand by assist at 08/31/2017 1545 STG Assistive Device none, cane (straight, single point) at 08/31/2017 1545 STG Distance (feet) 200' at 08/31/2017 1545 STG Comments none vs SPC at 08/31/2017 1545 LTG Status new at 08/31/2017 1545 LTG Bradford Level independent at 08/31/2017 1545 LTG Assistive Device none at 08/31/2017 1545 Stair Goal Most Recent Value STG Status continued at 09/01/2017 1354 STG [place] Level supervised at 08/31/2017 1545 STG Assistive Device 2 rails at 08/31/2017 1545 STG Number of Stairs 12 at 08/31/2017 1545 LTG Status new at 08/31/2017 1545 LTG [place] Level modified independent at 08/31/2017 1545 LTG [...] bar for remberto care. Bathing, Level of Bradford: stand by assist, verbal cues required Assistive [...] set up only UB Dressing, Level of Bradford: set up required Assistive Device: none UB Dressing Assess/Train, Position: sitting UB Dressing Assess/Train, Impairments: impaired balance, motor control impaired (deficits i n STM and problem solving) VC's required to have pt sit to thread clothing over his feet to reduce risk of LOB. LB Dressing, Level of Bradford: set up required, verbal cues required Assistive Device: none LB Dressing Assess/Train, Position: sitting, standing LB Dressing Assess/Train, Impairments: impaired balance, motor control impaired (deficits i n STM and problem solving) Toileting, Level of Bradford: supervised Assistive Device: grab bar Toileting Assess/Train, Position: sitting, standing Toileting Assess/Train, Impairments: strength decreased, impaired balance Grooming, Level of Bradford: supervised Assistive Device: none Grooming Assess/Train, Position: standing Grooming Assess/Train, Impairments: impaired balance, coordination impaired, motor control impaired Pt able to remove lids and open packets, but pt may need help selecting his menu d/t items missed like butter for toast, jelly, and sugar for his hot ceral. Self-Feeding, Level of Bradford: stand by assist Assistive Device: none Self-Feeding Assess/Train, Position: sitting Self-Feeding Assess/Train, Impairments: (deficits in STM and problem solving) Bed Mobility no physcial assist provided Assistive Device: none Roll Left, Level of [place]: modified independent Roll Right, Level of Bradford: modified independent Supine to Sit, Level of Bradford: modified independent Sit to Supine, Level of Bradford: supervised Safety Issues: cognitive deficits limit understanding Impairments: coordination impaired Transfers Pt ambulated around foot of bed to chair for breakfast with CGA and 1 word VC's for directi on. Bed-Chair, Level of [place]: contact guard assist, verbal cues required Chair-Bed, Level of [place]: verbal cues required, contact guard assist Sup-Voeff-Rvm, Assistive Device: none Sit-Stand, Level of [place]: stand by assist Stand-Sit, Level of [place]: verbal cues required Yjz-Kmfxy-Yed, Assistive Device: none Toilet, Level of Bradford: supervised Toilet, Assistive Device: grab bars Walk-in shower, Level of Bradford: stand by assist, verbal cues required Walk-in shower, Assistive Device: grab bars, shower chair Safety Issues: balance decreased during turns, step length decreased Impairments: strength decreased, impaired balance, coordination impaired OT Goal Review Date Most Recent Value STG Review Date 09/04/17 at 08/31/2017 1704 LTG Review Date 09/11/17 at 08/31/2017 1704 Grooming Goal Most Recent Value STG Status met at 09/01/2017 0851 STG Bradford Level supervised at 08/31/2017 1704 LTG Status progressing at 09/01/2017 0851 LTG Bradford Level modified independent at 08/31/2017 1704 LB Dressing Goal Most Recent Value STG Status progressing at 09/01/2017 0851 STG [place] Level supervised at 08/31/2017 1704 LTG Status progressing at 09/01/2017 0851 LTG Bradford Level modified independent at 08/31/2017 1704 Toilet Transfer Goal Most Recent Value STG Status met at 09/01/2017 0851 STG Bradford Level supervised at 08/31/2017 1704 LTG Status progressing at 09/01/2017 0851 LTG [place] Level modified independent at 08/31/2017 1704 Tub/Shower Transfer Goal Most Recent Value Tub/Shower Type tub/shower combo at 08/31/2017 1704 STG Status progressing at 09/01/2017 0851 STG Bradford Level contact guard assist at 08/31/2017 1704 STG Assistive Device shower chair, grab bars at 09/01/2017 1558 LTG Status progressing at 09/01/2017 0851 LTG [place] Level supervised at 08/31/2017 1704 Electronically signed [...] senna given; l ungs clear RA, 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 lan of Robbie - Frannie Saul, MILLER DISTILLERY - 08/31/2017 5:58 PM PDT Problem: Patient [...] Lungs w/ fine crackles to bases. Barking COMMERCIAL DRAFTER cough noted. Chest xray obtaine d. General [...] With: spouse Living Arrangements: independent living facility ([facility] Home Accessibility: no concerns Transportation Available: family [...] complete LB dressing. LB Dressing, Level of Bradford: contact guard assist LB Dressing Assess/Train, Position: sitting, supported standing LB Dressing Assess/Train, Impairments: decreased flexibility, ROM decreased, postural contr ol impaired Toileting, Level of Bradford: contact guard assist Assistive Device: grab bar Toileting Assess/Train, Position: sitting, supported standing Toileting Assess/Train, Impairments: strength decreased, postural control impaired, impaire d balance Cognitive Difficulty with word finding. Orientation: disoriented to, place, time, situation Bed Mobility no physcial assist provided Assistive Device: none Roll Left, Level of Bradford: modified independent Roll Right, Level of Bradford: modified independent Supine to Sit, Level of Bradford: supervised Sit to Supine, Level of Bradford: supervised Impairments: coordination impaired, decreased flexibility Transfers v/c for safety and sequencing. Bed-Chair, Level of Bradford: verbal cues required, contact guard assist Chair-Bed, Level of [place]: verbal cues required, contact guard assist Blc-Vrxkk-Was, Assistive Device: none Sit-Stand, Level of [place]: contact guard assist Stand-Sit, Level of Bradford: contact guard assist Dbs-Ihduq-Bhr, Assistive Device: none Toilet, Level of Bradford: contact guard assist, verbal cues required Toilet, [...] STG Status new at 08/31/2017 1704 STG Bradford Level supervised at 08/31/2017 1704 LTG Status new at 08/31/2017 1704 LTG Bradford Level modified independent at 08/31/2017 1704 LB Dressing Goal Most Recent Value STG Status new at 08/31/2017 1704 STG Bradford Level supervised at 08/31/2017 1704 LTG Status new at 08/31/2017 1704 LTG [place] Level modified independent at 08/31/2017 1704 Toilet Transfer Goal Most Recent Value STG Status new at 08/31/2017 1704 STG Bradford Level supervised at 08/31/2017 1704 LTG Status new at 08/31/2017 1704 LTG [place] Level modified independent at 08/31/2017 1704 Tub/Shower Transfer Goal Most Recent Value Tub/Shower Type tub/shower combo at 08/31/2017 1704 STG Status new at 08/31/2017 1704 STG Bradford Level contact guard assist at 08/31/2017 1704 STG Assistive Device shower chair, grab bars at 08/31/2017 1704 LTG Status new at 08/31/2017 1704 LTG [place] Level supervised at 08/31/2017 1704 Electronically signed [...] of Care Treatment, Initial Evaluation Note Summary: Dennsi presents to physical therapy with Gait instability, [...] With: spouse Living Arrangements: independent living facility ([facility]) Home Accessibility: no concerns Transportation Available: family [...] Assistive Device: none Roll Left, Level of Bradford: modified independent Roll Right, Level of Bradford: modified independent Supine to Sit, Level of Bradford: supervised Sit to Supine, Level of Bradford: supervised Impairments: coordination impaired, decreased flexibility Transfers verbal cues for correct sequence and technique for safety Bed-Chair, Level of [place]: stand by assist, verbal cues required Chair-Bed, Level of [place]: verbal cues required, stand by assist Jdh-Ldqet-Oiy, Assistive Device: none Safety Issues: balance decreased during turns, step length decreased Impairments: impaired balance, strength decreased, coordination impaired, postural control impaired Gait Pt had LOB when pt made a quick turn which required Min A to recover balance, gait instabil ity, wide base gait, has tendency to have LOB to (R) side Level of Bradford: minimal assist (75% patient effort) Assistive Device: none Distance (feet): 150' Gait Deviations: step length decreased, zem-bf-nfayn clearance decreased Impairments: strength decreased, impaired balance, coordination impaired, postural control impaired Stairs verbal cues to clear heel off the edge of the steps for safety, slower descending steps. s tep up/down 6" platform to simulate curb CGA Number of Stairs: 12 Handrail Location: both sides Level of Bradford: contact guard assist Assistive Device: 2 rails [...] safe ambulator For more information, please visit: [email or web address]/[email or web address] Functional Endurance Good ROM L LE ROM: WFL R LE ROM: WFL Strength L LE Strength: grossly graded 4-/5 R LE Strength: grossly graded 4-/5 PT Goal Review Date Most Recent Value STG Review Date 09/03/17 at 08/31/2017 1545 LTG Review Date 09/12/17 at 08/31/2017 1545 Gjxedh-Ffz-Tvbrex Goal Most Recent Value STG Status new at 08/31/2017 1545 STG [place] Level modified independent at 08/31/2017 1545 STG Assistive Device none at 08/31/2017 1545 Jlw-Krgij-Khr Goal Most Recent Value STG Status new at 08/31/2017 1545 STG [place] Level supervised at 08/31/2017 1545 STG Assistive Device none at 08/31/2017 1545 LTG Status new at 08/31/2017 1545 LTG [place] Level independent at 08/31/2017 1545 LTG Assistive Device none at 08/31/2017 1545 Gait Goal Most Recent Value STG Status new at 08/31/2017 1545 STG [place] Level stand by assist at 08/31/2017 1545 STG Assistive Device none, cane (straight, single point) at 08/31/2017 1545 STG Distance (feet) 200' at 08/31/2017 1545 STG Comments none vs SPC at 08/31/2017 1545 LTG Status new at 08/31/2017 1545 LTG [place] Level independent at 08/31/2017 1545 LTG Assistive Device none at 08/31/2017 1545 Stair Goal Most Recent Value STG Status new at 08/31/2017 154 STG Bradford Level supervised at 08/31/2017 154 STG Assistive Device 2 rails at 08/31/2017 154 STG Number of Stairs 12 at 08/31/2017 154 LTG Status new at 08/31/2017 154 LTG [place] Level modified independent at 08/31/2017 154 LTG [...] mL/min/1.73m2 | [facility] | | | [facility]URAN | RATE,ESTIMATED | | MEDICAL | | | | mL/min/1.07v5Ubdp than | | CENTER - | | [...] [address] | [place] | [phone] | | [facility] | | [address] | | | - LABORATORY | | [...] [address] | [place] | [phone] | | [facility] | | [address] | | | - LABORATORY | | [...] + | [facility] | [address] | [place] | [phone] | | [facility] | | [address] | | | - LABORATORY | | [...] mL/min/1.73m2 | [facility] | | | HONDURAN | RATE,ESTIMATED | | MEDICAL | | | | mL/min/1.38h3Eyrl than | | CENTER - | | [...] [address] | [place] | [phone] | | [facility] | | [address] | | | - LABORATORY | | [...] [address] | [place] | [phone] | | [facility] | | [address] | | | - LABORATORY | | [...] [address] | [place] | [phone] | | [facility] | | [address] | | | - LABORATORY | | [...] + | [facility] | [address] | [place] | [phone] | | [facility] | | [address] | | | - LABORATORY | | [...] mL/min/1.73m2 | [facility] | | | HONDURAN | RATE,ESTIMATED | | MEDICAL | | | | mL/min/1.59s0Ovda than | | CENTER - | | [...] [address] | [place] | [phone] | | [facility] | | [address] | | | - LABORATORY | | [...] ST. | [address] | [place] | [phone] | | [facility] | | [address] | | | - LABORATORY | | [...] | | | | | modification) on [facility] 09/03/17 at | | | | | [...]
--- OUTSIDE RECORDS SUMMARY | ~2019-11-10 | XMS | Encounter Summary ---
Demographics + + + | Address | [address] | | | [place] [address] | + + + | Home Phone | | + + + | Preferred Language | Unknown | + + + | Marital Status | | + + + | Episcopalian Affiliation | 1028 | + + + | Race | Unknown | + + + | Ethnic Group | Unknown | + + + Author + + + | Author | [facility] | | | and [place] | + + + | Organization | [facility] | | [...] [place], [place] | | | | | [address] | | + + + + + | Chloe Malik | ECON | [place], [place] | | | | | [address] | | + + + + + | Ivett Ingram | ECON | Unknown | | + + + + + | Mj Cabrera | ECON | Unknown | | + + + + + | Jessa Cabrera | ECON | [address] | | | | | [place], [place] | | | | | [address] | | + + + + + Care Team Providers + +------+ + | Care Pediatric Social Worker Name | Role | Phone | [...] | | | [place]ár[place], | [address] | | | | | Sacroiliitis | William Mccarty MD | [place], | | | | | ([facility]) | [address] | [place] | | | | | Procedures | [place] | [address] | | | | | [place] INJECT SI | [place], [place] | Phone: | | | | | JOINT | [address] | [phone] | | | | | ARTHRGRPHY&/ | Phone: | Fax: | | | | | ANES/STEROID | [phone] | [phone] | | | | | W/IMAGE [place] | Fax: | | | | | | | [phone] | | | | | | TRIAMCINOLON [...] + + | 11/03/ | Hospital | [facility] | [place], | Chronic low back | | 2015 | Encounter | MED CTR XRAY [address] | KATYA Colin [address] | pain; DDD | | | | [address] [place] | DICK MALLOY, J[address] | (degenerative disc | | | | [place] [address] | [place] [address] | disease), lumbar; | | | | [phone] | [phone] | S/P lumbar fusion; | | | | | | Bilateral | | | | | 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 | [address] | [place], [place] | [phone] | | [facility] | | [address] | | | - IMAGING | | [...] M46.1 Dennis Cabrera presents to the | [facility] | | fluoroscopy suite for fluoroscopically guided bilateral sacroiliac [facility] | | joint steroid injections as part [...] + | [address] | [address] | [place], [place] | [phone] | | [facility] | | [address] | | | - IMAGING | | [...]
--- OUTSIDE RECORDS SUMMARY | ~2019-11-10 | XMS | Encounter Summary ---
Demographics + + + | Address | [address] | | | [place] [address] | + + + | Home Phone | | + + + | Preferred Language | Unknown | + + + | Marital Status | | + + + | Jain Affiliation | 1028 | + + + [...] [place], [place] | | | | | [address] | | + + + + + | Chloe Malik | ECON | [place], [place] | | | | | [address] | | + + + + + | Ivett Ingrma | ECON | Unknown | | + + + + + | Mj aCbrera | ECON | Unknown | | + + + + + | Jessa Cabrera | ECON | [address] | | | | | [place], [place] | | | | | [address] | | + + + + + Care Team Providers + +------+ + | Care Chemical Production Engineer Name | Role | Phone | + +------+ + PCP | Unavailable | + +------+ + Encounter Details +--------+ + + + + | Date | Type | Department | Care Team | Description | +--------+ + + + + | 09/12/ | [facility] | [facility] | Mitesh Sandoval | | | 1996 | Encounter | MED CTR SLEEP | MD [place] [address] | | | | | CENTER [address] | [place] | | | | | [place] | [place] [address] | | | | | [address] | [phone] | | | | | [phone] | | | +--------+ + + + [...]
--- OUTSIDE RECORDS SUMMARY | ~2019-11-10 | XMS | Encounter Summary ---
Demographics + + + | Address | [address] | | | [place] [address] | + + + | Home Phone | | + + + | Preferred Language | Unknown | + + + | Marital Status | | + + + | Anabaptism Affiliation | 1028 | + + + | Race | Unknown | + + + | Ethnic Group | Unknown | + + + Author + + + | Author | [facility] | | | and [place] | + + + | Organization | [facility] | | | [...] [place], [place] | | | | | [address] | | + + + + + | Chloe Malik | ECON | [place], [place] | | | | | [address] | | + + + + + | Ivett Ingram | ECON | Unknown | | + + + + + | Mj Cabrera | ECON | Unknown | | + + + + + | Jessa Cabrera | ECON | [address] | | | | | [place], [place] | | | | | [address] | | + + + + + Care Team Providers + +------+ + | Care Cement Mason Name | Role | Phone | + +------+ + PCP | Unavailable | + +------+ + Encounter Details +--------+ + + + + | Date | Type | Department | Care Team | Description | +--------+ + + + + | 08/20/ | [facility] | [facility] | Monty Caputo, | | | 2010 | Encounter | MED CTR GENERIC OP | MD [address] | | | | | CONV DEPT [address] | [place], [place] | | | | | [place], | [address] | | | | | [place] [address] | | | | | | [phone] | | | +--------+ + + + [...] PRIOR PULMONARY FUNCTION TESTS PERFORMED HERE AT [facility] ARE AVAILABLE FOR COMPARISON. THE PATIENT DID HAVE A PRIOR SPIROMETRY PERFORMED IN [facility] A SIMILAR DEGREE OF AIRFLOW OBSTRUCTION WITH RESPONSE TO BRONCHODILATORS WAS NOTED. DICTATED BY: Monty Caputo MD Pulmonary / Critical Care JOB #: [id number] EXT JOB #:[id number] <Electronicall y Signed by Monty Caputo MD> 08/22/10 0637 documented in this encounter Plan of Treatment Not on filedocumented as of this encounter Visit Diagnoses Not on filedocumented in this encounter"
--- OUTSIDE RECORDS SUMMARY | ~2019-11-10 | XMS | Encounter Summary ---
Demographics + + + | Address | [address] | | | [place] [address] | + + + | Home Phone | | + + + | Preferred Language | Unknown | + + + | Marital Status | | + + + | Tenriism Affiliation | 1028 | + + + | Race | Unknown | + + + | Ethnic Group | Unknown | + + + Author + + + | Author | [facility] | | | and [place] | + + + | Organization | [facility] | | | [...] [place], [place] | | | | | [address] | | + + + + + | Chloe Malik | ECON | [place], [place] | | | | | [address] | | + + + + + | Ivett Ingram | ECON | Unknown | | + + + + + | Mj Cabrera | ECON | Unknown | | + + + + + | Jessa Cabrera | ECON | [address] | | | | | [place], [place] | | | | | [address] | | + + + + + Care Team Providers + +------+ + | Care Pacs Administrator Name | Role | Phone | + +------+ + PCP | Unavailable | + +------+ + Encounter Details +--------+ + + + + | Date | Type | Department | Care Team | Description | +--------+ + + + + | 09/03/ | Hospital | [facility] | Rivas Stevens MD | Syncope; Near | | 2011 - | Encounter | [facility] | [address] | syncope; Renal | | | | CARE FLOOR [address] | [place] [address] | insufficiency; | | 09/05/ | | [address] | [phone] | Syncope and | | 2011 | | [place] | | collapse; | | | | [address] | | Rhabdomyolysis | | | | [phone] | | | +--------+ + + + [...] Date of Service: 09/06/11 0959 Status: Signed Wire Welder: Cherelle Jansen MD (Physician) [facility] Service: Hospitalist Discharge Summary Date of Admission: [...] 3. Aortic valve is mildly thickened. 4. Dwgp-oh-sqxmnxfe mitral regurgitation is present. Ultrasound renal [[id number]] Order Status: Completed Resulted: 09/05/11 0516 Narrative: IMPRESSION: 1. Kidneys appear normal aside from bilateral renal cysts. 2. Bladder is empty with a Trejo catheter in place. Read by Ramses Muhammad MD on Sep 05 2011 5:16AM CT Head Non-Con [[id number]] Order Status: Completed Resulted: 09/04/11 2217 Narrative: IMPRESSION: 1. Atrophy and small vessel disease. 2. 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 Read by Ramses Muhammad MD on Sep 04 2011 10:17PM Procedure Component Value Units Flag Date/Time Occult blood screen [[id number]] Collection: 09/05/11 1518 Order Status: Completed Resul jaqueline: 09/05/11 1548 Specimen Type: Stool Fecal Occult Blood NEGATIVE BRIEF HISTORY OF PRESENTATION: Joseph Cabrera is a 76 y.o. male with ,multiple medical problems ,please see PMHx section, who presents from [facility] ED after having abnormal labs in drawn [...] a ne gative Cardiac stress test at [facility] per his a month ago for [...] tablet Take 40 mg by mouth daily. AC-Vzrcaoqqop-Jikplvaaohtxue (FOLBIC) 2.5-25-2 MG TABS Take 1 tablet [...] Date: 09/05/12 Follow up: Aaron Beltran MD [phone] Make an appointment in 3 days Current Discharge Medication List CONTINUE these medications which have NOT CHANGED Details aspirin 81 MG tablet Take 81 mg by mouth daily. cabergoline (DOSTINEX) 0.5 MG tablet Take 0.25 mg by mouth twice a week. citalopram (CELEXA) 40 MG tablet Take 40 mg by mouth daily. DQ-Pqalsovwqp-Qoiasortpmweeq (FOLBIC) 2.5-25-2 MG TABS Take 1 tablet [...] | 0 | 07/10/19 | | | ZE-Vwjzmkvnsq-Dnbwfp | mouth daily | | | 12 [...] Soto Bañuelos RN Service: (none) Author Type: Manifold Builder Filed: 09/05/11 140 Date of Service: 09/05/111400 Status: Signed Wire Welder: Soto Bañuelos RN (Manifold Builder) Discharge Plan: Return home with spouse, who will transport. No HH or DME needs for discharge. SOTO CROCKER RN Cherelle Jennings MD - 09/05/2011 1:35 PM PDT Progress Notes by Cherelle Jansen MD at 09/05/11 629 Author: Cherelle Jansen MD Service: (none) Author Type: Physician Filed: 09/05/11 2492 Date of Service: 09/05/111334 Status: Signed Wire Welder: Cheerlle Jansen MD (Physician) [facility] Service: Hospitalist Progress Note Hospital Day: LOS: [...] 3. Aortic valve is mildly thickened. 4. Zpsy-ri-xhnkudjn mitral regurgitation is present. Scheduled Medications aspirin [...] Soto Bañuelos RN Service: (none) Author Type: Manifold Builder Filed: 09/05/11 1035 Date of Service: 09/05/11 103 Status: Signed Wire Welder: Soto Bañuelos RN (Manifold Builder) Discharge Plan: Plan is to return home [...] 0027 Date of Service: 09/04/112223 Status: Signed Wire Welder: Rivas Stevens MD (Physician) [facility] Service: Hospitalist Admission History & Physical Date [...] see PMHx section, who presents with from [facility] ED after having abnormal labs in drawn [...] a negative Car diac stress test at [facility] per his a month ago for [...] Value Date TROPONINI 0.02 09/04/2011 Labs from [facility] ED : Labs reviewed from outside facility [...] :EKG Interpretation Rhythm: Sinus Ventricular Rate: 73 ND Interval: Normal ST Segments: Normal Significant Q-waves: None Blocks: None [facility]: Normal All labs and image reports reviewed [...] 09/04/112327 Date of Service: 09/04/112327 Status: Signed Wire Welder: Ramses Munson RN (Registered Nurse) Report from Magalie Munson RN 09/04/112327 onver brianna Transaction, Provider Unknown - 09/04/2011 9:23 PM PDT ED Notes by Danielle Alcantara RN at 09/04/112122 Author: Danielle Alcantara RN Service: (none) Author Type: Registered Nurse Filed: 09/04/112122 Date of Service: 09/04/112122 Status: Signed Wire Welder: Danielle Alcantara RN (Registered Nurse) No change in pt condition since admission to the ED Danielle Alcantara RN 09/04/112122 onver brianna Transaction, Provider Unknown - 09/04/2011 9:22 PM PDT ED Notes by Danielle Alcantara RN at 09/04/112121 Author: Danielle Alcantara RN Service: (none) Author Type: Registered Nurse Filed: 09/04/112121 Date of Service: 09/04/112121 Status: Signed Wire Welder: Danielle Alcantara RN (Registered Nurse) Food tray ordered Danielle Alcantara RN 09/04/112121 onver brianna Transaction, Provider Unknown - 09/04/2011 7:59 PM PDT ED Notes by Magalie Reyna RN at 09/04/111958 Author: Magalie Reyna RN Service: (none) Author Type: Registered Nurse Filed: 09/04/111958 Date of Service: 09/04/111958 Status: Signed Wire Welder: Magalie Reyna RN (Registered Nurse) Patient at bedside attempting to urinate in urinal. Magalie Reyna RN 09/04/111958 onver brianna Transaction, Provider Unknown - 09/04/2011 7:15 PM PDT ED Notes by Magalie Reyna RN at 09/04/111914 Author: Magalie Reyna RN Service: (none) Author Type: Registered Nurse Filed: 09/04/111914 Date of Service: 09/04/111914 Status: Signed Wire Welder: Magalie Reyna RN (Registered Nurse) at bedside (Dr. Redmond). Magalie Reyna RN 09/04/111914 ranth am, Kevin Noble MD - 09/04/2011 7:14 PM PDT ED Provider Notes by Kevin Redmond MD at 09/04/111913 Author: Kevin Redmond MD Service: (none) Author Type: Physician Filed: 09/05/11 0202 Date of Service: 09/04/111913 Status: Signed Wire Welder: Kevin Redmond MD (Physician) 7:[address] [facility] Department of Emergency Medicine History of Present [...] to be of moderate severity. No care WAIT STAFF. No modifying factors. PCP: AARON BELTRAN MD, [...] mg by mouth daily. Yes Historical Provider, SF-Itsuwdnzvi-Biwollooqkiqgf (FOLBIC) 2.5-25-2 MG TABS Take 1 tablet [...] reviewed (Using the electronic record system of [facility], I dilan talaveray reviewed the records with [...] Value Ref Range Flag Date/Time Urine Microscopic [[id number]] Collection: 09/04/112234 Order Status: Completed Resulted: 09/04/112303 Specimen Type: Urine WBC 0-2 0 - 5 /hpf RBC 0-2 0 - 5 /hpf EPITHELIAL 0-2 /lpf BACTERIA NONE SEEN NONE SEEN POC clinitek 10 [[id number]] Collection: 09/04/112228 Order Status: Completed Resulted: 09/04/112232 Color, UA YELLOW Clarity, UA CLEAR Glucose, UA NEGATIVE NEGATIVE mg/dL Bilirubin, UA NEGATIVE NEGATIVE Ketones, UA NEGATIVE NEGATIVE mg/dL Spec Grav, UA 1.020 1.001 - 1.035 Blood, UA NEGATIVE NEGATIVE pH, UA 5.0 4.6 - 8.0 Protein, UA NEGATIVE NEGATIVE mg/dL Urobilinogen, UA 0.2 <1.1 mg/dL Nitrite, UA NEGATIVE NEGATIVE WBC, UA NEGATIVE NEGATIVE CPK [[id number]] Abnormal Collection: 09/04/111948 Order Status: Completed Resulted: 09/04/112216 CPK 1090 25 - 287 U/L H CK MB [[id number]] Abnormal Collection: 09/04/111948 Order Status: Completed Resulted: 09/04/112216 MMB 18.1 0.5 - 3.6 ng/mL H CK-MB Index 1.7 Magnesium [[id number]] Collection: 09/04/111948 Order Status: Completed Resulted: 09/04/112216 MAGNESIUM 2.1 1.5 - 2.4 mg/dL Phosphorus [[id number]] Collection: 09/04/111948 Order Status: Completed Resulted: 09/04/112216 PHOSPHORUS 3.6 2.5 - 4.8 mg/dL Complete Metabolic Panel [[id number]] Abnormal Collection: 09/04/111948 Order Status: Completed Resulted: [...] 23 >60 mL/min/1.73m2 L Troponin I, Lab [[id number]] Collection: 09/04/111948 Order Status: Completed Resulted: 09/04/112023 Specimen Type: Blood TROPONIN I 0.02 0.00 - 0.10 ng/mL CBC w Auto Diff [[id number]] Abnormal Collection: 09/04/111948 Order Status: Completed Resulted: [...] Interpretation 1858 Rhythm: Sinus Ventricular Rate: 73 ND Interval: Normal ST Segments: Normal Significant Q-waves: None Blocks: None [facility]: Normal Viewed and interpreted by me: Kevin Redmond MD ED Diagnoses Final diagnoses Syncope Near syncope New Renal insufficiency Disposition: ED Disposition Admit/Observation Diagnosis?: syncope, near syncope, new renal insufficiency Bed request special needs: None Follow-up Information None Discharge Medications: New Prescriptions No new medications Additional Documentation Procedures Attending Note: Documentation assistance provided by Lamine Hutner (Scribe). Information recorded by the scribe has [...] | EXTERNAL LAB | | performed at [facility];[address] [place] [address];[place] [address] | | + + + + +---------+ [...] is mildly | | | thickened. 4. Wrfq-ge-unzpreyw mitral regurgitation is present. | | | [...] nodular degeneration. Mitral | | | Valve: Hsum-wu-wtombybe mitral regurgitation is present. Tricuspid | | [...] TV A Perez: 0.59 m/s TV Dec Jessamine: | | | 1.59 m/s2 TV Dec Time: 328.86 ms TV E Perez: 0.52 m/s TV E/A | | | Ratio: 0.88 Society Reporter: DEDE Authenticated by: Iggy Kirby MD | [...] Aortic valve is mildly thickened.4. | | Phkh-hq-ldlocaru mitral regurgitation is present. 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.Mitral Valve: Qxnr-vo-dzuaojci mitral | | regurgitation is present.Tricuspid Valve: [...] mlLAESV Index (A-L): 27.20 ml/m2LAAs A2C: 17.92 nm7GPBZG A-L | | A2C: 55.50 mlLALs A2C: 4.91 cmLAAs A4C: 16.59 uf3AWHNI A-L A4C: 49.89 mlLALs | | A4C: 4.68 cmHR: 86.32 BPMAV maxP.04 mmHgAV meanP.64 mmHgAV Vmax: 1.87 | | m/Sagar Vmean: 1.33 m/Sagar VTI: 38.92 cmAVA Vmax: 2.32 cm2AVA (VTI): 2.28 ga6GQPI | | Dopp: 3.35 l/hcfh4KGZN Dopp: 6.64 l/minHR: 74.79 BPMLVOT maxP.68 mmHgLVOT [...] | | VTI: 27.91 cmMVA (VTI): 3.18 cl0Xdzmee e': 0.09 m/sSeptal E/e': 1.30P Vein A: | | 0.33 m/sP Vein A Dur: 110.90 msP Vein D: 0.39 m/sP Vein S/D Ratio: 2.08P Vein S: | | 0.81 m/sTR maxP.73 mmHgTR Vmax: 2.22 m/sTV A Perez: 0.59 m/sTV Dec Jessamine: | | 1.59 m/s2TV Dec Time: 328.86 msTV E Perez: 0.52 m/sTV E/A Ratio: 0.88 Society Reporter: | | KVWAuthenticated by: Iggy Kirby [facility] Date/Time: 09-05-2011 12:16:59 | |LA Major: 4.98 [...] A Perez: 0.59 m/s | |TV Dec Jessamine: 1.59 m/s2 | |TV Dec Time: 328.86 ms | |TV E Perez: 0.52 m/s | |TV E/A Ratio: 0.88 | | | |Society Reporter: KVW | |Authenticated by: Iggy Kirby MD [...]
--- OUTSIDE RECORDS SUMMARY | ~2019-11-10 | XMS | Encounter Summary ---
Demographics + + + | Address | [address] | | | [place] [address] | + + + | Home Phone | | + + + | Preferred Language | Unknown | + + + | Marital Status | | + + + | Jainism Affiliation | 1028 | + + + | Race | Unknown | + + + | Ethnic Group | Unknown | + + + Author + + + | Author | [facility] | | | and [place] | + + + | Organization | [facility] | | | and [place] | + + + | Address | Unknown | + + + | Phone | Unavailable | + + + Support + + + + + | Name | Relationship | Address | Phone | + + + + + | rBie Cabrera | ECON | [address] | | | | | [place], [place] | | | | | [address] | | + + + + + | Chloe Malik | ECON | [place], [place] | | | | | [address] | | + + + + + | Ivett Ingram | ECON | Unknown | | + + + + + | Mj Cabrera | ECON | Unknown | | + + + + + | Jessa Cabrera | ECON | [address] | | | | | [place], [place] | | | | | [address] | | + + + + + Care Team Providers + +------+ + | Care Manager Studio Name | Role | Phone | + [...] + | 09/13/ | Telephone | [facility] | William Granger | Medication Refill | | 2014 | | PHYSIATRY [address] | [address] | | | | | [address] | [address] [place], [place] | | | | | [place], [place] | [address] | | | | | [address] | | | | | | [phone] | | | +--------+ + + + [...] refill. [facility] [place] Please call anu alvarado when complete. documented in this encounter Plan of Treatment Not on filedocumented as of this encounter Visit Diagnoses Not on filedocumented in this encounter"
--- OUTSIDE RECORDS SUMMARY | ~2019-11-10 | XMS | Encounter Summary ---
Demographics + + + | Address | [address] | | | [place] [address] | + + + | Home Phone | | + + + | Preferred Language | Unknown | + + + | Marital Status | | + + + | Latter-Day Affiliation | 1028 | + + + | Race | Unknown | + + + | Ethnic Group | Unknown | + + + Author + + + | Author | [facility] | | | and [place] | + + + | Organization | [facility] | | | and [...] [place], [place] | | | | | [address] | | + + + + + | Chloe Malik | ECON | [place], [place] | | | | | [address] | | + + + + + | Ivett Ingram | ECON | Unknown | | + + + + + | Mj Cabrera | ECON | Unknown | | + + + + + | Jessa Cabrera | ECON | [address] | | | | | [place], [place] | | | | | [address] | | + + + + + Care Team Providers + +------+ + | Care Biomedical Manager Name | Role | Phone | [...] | [address] [place] | [place] [address] | | | | | [place] [address] | | | | | | [phone] | | | +--------+ + + + [...]
--- OUTSIDE RECORDS SUMMARY | ~2019-11-10 | XMS | Encounter Summary ---
Demographics + + + | Address | [address] | | | [place] [address] | + + + | Home Phone | | + + + | Preferred Language | Unknown | + + + | Marital Status | | + + + | Jehovah'S Witness Affiliation | 1028 | + + + | Race | Unknown | + + + | Ethnic Group | Unknown | + + + Author + + + | Author | [facility] | | | and [place] | + + + | Organization | [facility] | | | [...] [place], [place] | | | | | [address] | | + + + + + | Chloe Malik | ECON | [place], [place] | | | | | [address] | | + + + + + | Ivett Ingram | ECON | Unknown | | + + + + + | Mj Cabrera | ECON | Unknown | | + + + + + | Jessa Cabrera | ECON | [address] | | | | | [place], [place] | | | | | [address] | | + + + + + Care Team Providers + +------+ + | Care Advertisement Compositor Name | Role | Phone | + [...] | | | Bár[place], | [address] | | | | | Sacroiliitis | William Mccarty MD | [place], | | | | | , not | [address] | [place] | | | | | elsewhere | [place] | [address] | | | | | classified | [place], [place] | Phone: | | | | | ([facility]) | [address] | [phone] | | | | | Procedures | Phone: | Fax: | | | | | [place] INJECT SI | [phone] | [phone] | | | | | JOINT | Fax: | | | | | | ARTHRGRPHY&/ | [phone] | | | | | | ANES/STEROID | | | | | | | W/IMAGE [place] | | | | | | | | | | | | | | TRIAMCINOLON | | | | | | | E ACET INJ | | | | | | | NOS, 10 MG | | | | | | | Bilat SI | | | | | | | Joint-appt | | | | | | | 6/2 | | | +--------+--------+ + + + + Encounter Details +--------+ + + + + | Date | Type | Department | Care Team | Description | +--------+ + + + + | 10/10/ | Hospital | [facility] | Favian, | Sacroiliitis, not | | 2015 | Encounter | MED CTR XRAY [address] | [address]YA [address] | elsewhere classified | | | | [place] | [address] | ([facility]); Chronic low | | | | [place] [address] | [place] [address] | back pain; S/P | | | | [phone] | [phone] | lumbar fusion | | | | | | | | | | | Stock ReplenisherAbdulaziz | | | | | | [place] [...] +---------+ + + | Blood Pressure | 182/99 | 10/10/2014 4:01 PM | | | | | PDT | | + +---------+ + + | Pulse | 69 | 10/10/2014 4:01 PM | | | | | PDT | | + +---------+ + + | [...] | | | | | | | ([facility] | | | | | | [...] +---------+ + + | gabapentin | Take 1 capsule by | 90 | 2 | 09/14/19 | | | (NEURONTIN) 300 mg | mouth 3 times daily. | capsule | | 15 | 5 | | capsule | | | | | | + + + +---------+ + + | | Take 10-325 mg by | | 0 | 01/22/20 | | | HYDROcodone-acetamin | mouth as needed. | | | 12 | 5 | | ophen (NORCO) 10-325 | | | | | | | mg per tablet | | | | | [...] + + + +---------+ + + | pseudoePHEDrine | Take 60 mg by mouth | | 0 | | | | (SUDOGEST) 60 MG | every 4 hours as | | | | 5 | | tablet | needed for | | | | | | | Congestion. | | | | | + + [...] + | [place] SACROILIAC | Routin | 10/10/2014 | Sacroiliitis, not | Results for this | | INJECTION RIGHT | e | 3:54 PM | elsewhere classified | procedure are in the | | | | PDT | ([facility]) Chronic low | results section. | | | | | back pain S/P | | | | | | lumbar fusion | | + +--------+ + + + | FL SACROILIAC | Routin | 10/10/2014 | Sacroiliitis, not | Results for this | | INJECTION LEFT | e | 3:54 PM | elsewhere classified | procedure are in the | | | | PDT | ([facility]) Chronic low | results section. | | | | | back pain S/P | | | | | | lumbar fusion | | + +--------+ + + + documented in this encounter Results FL Sacroiliac Injection Right (10/10/2014 3:54 PM PDT) + + | Specimen | + + | | + + + + + | Narrative | Performed At | + + + | 10/10/2014 Bilateral Sacroiliac Joint Injection Clinical History: | [facility] | | Sacroiliitis ICD-9 720.0 Dennis Cabrera presents to the | [facility] | | fluoroscopy suite for fluoroscopically guided bilateral sacroiliac | [facility] | | joint steroid injections [...] + | [address] | [address] | [place] | [phone] | | [facility] | | [address] | | | - IMAGING | | [...] 720.0 Dennis Cabrera presents to the | [facility] | | fluoroscopy suite for fluoroscopically guided bilateral sacroiliac [facility] | | joint steroid injections as part [...] + | [address] | [address] | [place] | [phone] | | [facility] | | [address] | | | - IMAGING | | | | + + + + + documented in this encounter Visit Diagnoses + + | Diagnosis | + + | Sacroiliitis, not elsewhere classified (HCC) Sacroiliitis, not elsewhere classified | + + | Chronic low back pain Lumbago | + + | S/P lumbar fusion Arthrodesis status | + + documented in this encounter Administered Medications + +--------+ +-------+------+------+ | Medication Order | MAR | Action | Dose | Rate | Site | | | Action | Date | | | | + +--------+ +-------+------+------+ | iohexol (OMNIPAQUE 300) 300 | Given | 10/11/19 | 4 mLs | | | | mg/mL injection 4 mL 4 mL, | | 15 3:54 | | | | | INTRATHECAL, ONCE, 10/10/14 at | | PM PDT | | | | | 1600, For 1 dose | | | | | | + +--------+ +-------+------+------+ +---+---+ | | | +---+---+ + +-------+ +------+---+ + | lidocaine 1% injection 1 mL 1 | Given | 10/11/19 | 1 mL | | Other | | mL, Intradermal, ONCE, 10/10/14 | | 15 3:49 | | | (Comment | | at 1600, For 1 dose | | PM PDT | | | ) | + +-------+ +------+---+ + +---+---+ | | | +---+---+ + +-------+ +------+---+---+ | sodium bicarbonate (NEUT) 4% | Given | 10/11/19 | 1 mL | | | | injection 1 mL 1 mL, | | 15 3:49 | | | | | Intravenous, ONCE, 10/10/14 at | | PM PDT | | | | | 1600, For 1 dose, Use for | | | | | | | addition to other parenteral | | | | | | | solutions., | | | | | | + +-------+ +------+---+---+ +---+---+ | | | +---+---+ + +-------+ +-------+---+---+ | triamcinolone acetonide | Given | 10/11/19 | 80 mg | | | | (KENALOG-40) 40 mg/mL injection | | 15 3:56 | | | | | 80 mg 80 mg, Other, ONCE, Tue | | PM PDT | | | | | 10/10/14 at 1600, For 1 dose, Shake | | | | | | | well. Not for IV use., | | | | | | + +-------+ +-------+---+---+ +---+---+ | | | +---+---+ documented in this encounter"
--- OUTSIDE RECORDS SUMMARY | ~2019-11-10 | XMS | Encounter Summary ---
Demographics + + + | Address | [address] | | | [place] [address] | + + + | Home Phone | | + + + | Preferred Language | Unknown | + + + | Marital Status | | + + + | Episcopal Affiliation | 1028 | + + + | Race | Unknown | + + + | Ethnic Group | Unknown | + + + Author + + + | Author | [facility] | | | and [place] | + + + | Organization | [facility] | | | [...] [place], [place] | | | | | [address] | | + + + + + | Chloe Malik | ECON | [place], [place] | | | | | [address] | | + + + + + | Ivett Ingram | ECON | Unknown | | + + + + + | Mj Cabrera | ECON | Unknown | | + + + + + | Jessa Cabrera | ECON | [address] | | | | | [place], [place] | | | | | [address] | | + + + + + Care Team Providers + +------+ + | Care Printed Circuit Boards Beveler Name | Role | Phone | + +------+ + PCP | Unavailable | + +------+ + Encounter Details +--------+ + + + + | Date | Type | Department | Care Team | Description | +--------+ + + + + | 10/18/ | [facility] | [facility] | Monty Caputo, | | | 2010 | Encounter | MED CTR XRAY [address] | MD [address] | | | | | [place] | [address] | | | | | [place] [address] | [address] | | | | | [phone] | | | +--------+ + + + [...] Performed At | + + + | [facility] Diagnostic Imaging Department | [facility] | | [address] [facility] | [facility] | | CHEST FLUOROSCOPY: 10/18/2010 | DALJIT [...] Transcribed Date/Time: | | | 10/18/2010 18:19 Armature Balancer: <Electronically Signed | | | by Neftali Milian MD> 10/18/102200 | | + + + + + | Procedure Note | + + | Colton, Rad Conversion - 06/17/2013 3:07 PM [facility] | | Diagnostic Imaging Department [address] [place] [address] | | CHEST FLUOROSCOPY: 10/18/2010 CLINICAL HISTORY: [...] 14:42 | |Transcribed Date/Time: 10/18/2010 18:19 | |Armature Balancer: | |<Electronically Signed by Neftali Milian MD> [...]
--- OUTSIDE RECORDS SUMMARY | ~2019-11-10 | XMS | Encounter Summary ---
Demographics + + + | Address | [address] | | | [place] [address] | + + + | Home Phone | | + + + | Preferred Language | Unknown | + + + | Marital Status | | + + + | Yazidism Affiliation | 1028 | + + + | Race | Unknown | + + + | Ethnic Group | Unknown | + + + Author + + + | Author | [facility] | | | and [place] | + + + | Organization | [facility] | | | [...] [place], [place] | | | | | [address] | | + + + + + | Chloe Malik | ECON | [place], [place] | | | | | [address] | | + + + + + | Ivett Ingram | ECON | Unknown | | + + + + + | Mj Cabrera | ECON | Unknown | | + + + + + | Jessa Cabrera | ECON | [address] | | | | | [place], [place] | | | | | [address] | | + + + + + Care Team Providers + +------+ + | Care Wood Preserving Plant Laborer Name | Role | Phone | + [...] + + | 02/28/ | Office | [facility] | Favian, | Chronic low back | | 2015 | Visit | PHYSIATRY [address] | [address] | pain (Primary Dx); | | | | [address] | [address] | DDD (degenerative | | | | [address] | [place] [address] | disc disease), | | | | [address] | [phone] | lumbar; S/P lumbar | | | | [phone] | | fusion; Bilateral | | | [...] of the procedure you must provide a operator and truck driver to take you home. For [...] The patient has been seen for this [facility] plaint in the past, with [...] does get relief with pushing the lawn clamp remover. He also takes Aleve which may help [...] has no apparent deficits with short or mcfp memory. He has appropriate fund of knowledge [...] PT (multiple sessions over the years) and home care chaplain. Unfortunately he contin ues to have significant [...] fluoroscopy suite for fluoroscopically guided bilateral sacroiliac [facility] | | joint steroid injections as [...] + + | Performing | Address | City/State[facility] | Phone Number | | Organization | | | | + + + + + | [address] | [address] | [place] | [phone] | | [facility] | | [address] | | | - IMAGING | | [...] fluoroscopy suite for fluoroscopically guided bilateral sacroiliac [facility] | | joint steroid injections as [...] + + | Performing | Address | City/State/[facility] | Phone Number | | Organization | | | | + + + + + | [address] | [address] | [place] | [phone] | | [facility] | | [address] | | | - IMAGING | | [...]
--- OUTSIDE RECORDS SUMMARY | ~2019-11-10 | XMS | Encounter Summary ---
Demographics + + + | Address | [address] | | | [place] [address] | + + + | Home Phone | | + + + | Preferred Language | Unknown | + + + | Marital Status | | + + + | Christianity Affiliation | 1028 | + + + | Race | Unknown | + + + | Ethnic Group | Unknown | + + + Author + + + | Author | [facility] | | | and [place] | + + + | Organization | [facility] | | | [...] [place], [place] | | | | | [address] | | + + + + + | Chloe Malik | ECON | [place], [place] | | | | | [address] | | + + + + + | Ivett Ingram | ECON | Unknown | | + + + + + | Mj Cabrera | ECON | Unknown | | + + + + + | Jessa Cabrera | ECON | [address] | | | | | [place], [place] | | | | | [address] | | + + + + + Care Team Providers + +------+ + | Care Ripper Operator Name | Role | Phone | [...] [facility] | | | | | Thoracic or | [place]ár[place], | [address] | | | | | lumbosacral | William T, MD | [place], | | | | | neuritis or | [address] | [place] | | | | | | [place] | [address] | | | | | radiculitis, | [place] | Phone: | | | | | unspecified | [address] | [phone] | | | | | Procedures | Phone: | Fax: | | | | | [place] NJX | [phone] | [phone] | | | | | DX/THER SBST | Fax: | | | | | | | [phone] | | | | | | EPIDURAL/SUB | | | | | | | ARACH | | | | | | | LUMBAR/SACRA | | | | | | | L NM | | | | | | | TRIAMCINOLON | | | | | | | E ACET INJ | | | | | | | NOS, 10 MG | | | | | | | Caudal | | | | | | | Injection-AP | | | | | | | PT 4/7 | | | +--------+--------+ + + + + Encounter Details +--------+ + + + + | Date | Type | Department | Care Team | Description | +--------+ + + + + | 08/15/ | Hospital | [facility] | William Granger | Bilateral lumbar | | 2015 | Encounter | MED CTR XRAY [address] | T, [address] | radiculopathy; DDD | | | | [place] | [place] | (degenerative disc | | | | [place] [address] | [address] | disease), lumbar; | | | | [phone] | | S/P lumbar fusion | | | | | Talent Acquisition Partner, [facility] | | | | | | [place] [...] +---------+ + + | Blood Pressure | 158/97 | 08/15/2014 3:33 PM | | | | | PDT | | + +---------+ + + | Pulse | 72 | 08/15/2014 3:33 PM | | | | | PDT [...] +---------+ + + | gabapentin | Take 300 mg by mouth | | 0 | | | | (NEURONTIN) 300 mg | 3 times daily. | | | | 5 | | capsule | | [...] + +--------+ + + + | [place] EPIDURAL STEROID | Routin | 08/15/2014 | Bilateral lumbar | Results for this | | INJ LUMBAR SACRAL | e | 3:18 PM | radiculopathy DDD | procedure are in the | | INTERLAMINAR | | PDT | (degenerative disc | results section. | | | | | disease), lumbar | | | | | | S/P lumbar fusion | | + +--------+ + + + documented in this encounter Results [place] JAI Lumbar Sacral Interlaminar (08/15/2014 3:18 PM PDT) + + | Specimen | + + | | + + + + + | Narrative | Performed At | + + + | 08/15/2014 LUMBAR INTERLAMINAR EPIDURAL STEROID INJECTION | [facility] | | CLINICAL HISTORY: ICD-9 CODE 724.4 LUMBAR RADICULOPATHY Dennis Okeefe [facility] | | Weisenbach presents to the fluoroscopy suite for a | [facility] | | fluoroscopically-guided caudal epidural [...] | [address] | [place] | [phone] | | [facility] | | [address] | | | - IMAGING | | | | + + + + + documented in this encounter Visit Diagnoses + + | Diagnosis | + + | Bilateral lumbar radiculopathy | + + | DDD (degenerative disc disease), lumbar Degeneration of lumbar or lumbosacral | | intervertebral disc | + + | S/P lumbar fusion Arthrodesis status | + + documented in this encounter Administered Medications + +--------+ +------+------+------+ | Medication Order | MAR | Action | Dose | Rate | Site | | | Action | Date | | | | + +--------+ +------+------+------+ | betamethasone (CELESTONE | Given | 08/16/19 | 6 mg | | | | SOLUSPAN) injection 6 mg 6 mg, | | 15 3:28 | | | | | Other, ONCE, [facility] 08/15/14 at 1530, | | PM PDT | | | | | For 1 dose, Shake well. Not for | | | | | | | IV use., | | | | | | + +--------+ +------+------+------+ +---+---+ | | | +---+---+ + +-------+ +-------+---+---+ | iohexol (OMNIPAQUE 300) 300 | Given | 08/16/19 | 4 mLs | | | | mg/mL injection 4 mL 4 mL, | | 15 3:25 | | | | | INTRATHECAL, ONCE, [facility] 08/15/14 at | | PM PDT | | | | | 1530, For 1 dose | | | | | | + +-------+ +-------+---+---+ +---+---+ | | | +---+---+ + +-------+ +------+---+ + | lidocaine 1% injection 1 mL 1 | Given | 08/16/19 | 1 mL | | Other | | mL, Intradermal, ONCE, 08/15/14 | | 15 3:21 | | | (Comment | | at 1530, For 1 dose | | PM PDT | | | ) | + +-------+ +------+---+ + +---+---+ | | | +---+---+ + +-------+ +------+---+---+ | sodium bicarbonate (NEUT) 4% | Given | 08/16/19 | 1 mL | | | | injection 1 mL 1 mL, | | 15 3:22 | | | | | Intravenous, ONCE, e 08/15/14 at | | PM PDT | | | | | 1530, For 1 dose, Use for | | | | | | | addition to other parenteral | | | | | | | solutions., | | | | | | + +-------+ +------+---+---+ +---+---+ | | | +---+---+ documented in this encounter"
--- OUTSIDE RECORDS SUMMARY | ~2019-11-10 | XMS | Encounter Summary ---
Demographics + + + | Address | [address] | | | [place] [address] | + + + | Home Phone | | + + + | Preferred Language | Unknown | + + + | Marital Status | | + + + | Shinto Affiliation | 1028 | + + + | Race | Unknown | + + + | Ethnic Group | Unknown | + + + Author + + + | Author | [facility] | | | and [place] | + + + | Organization | [facility] | | | [...] [place], [place] | | | | | [address] | | + + + + + | Chloe Malik | ECON | [place], [place] | | | | | [address] | | + + + + + | Ivett Ingram | ECON | Unknown | | + + + + + | Mj Cabrera | ECON | Unknown | | + + + + + | Jessa Cabrera | ECON | [address] | | | | | [place], [place] | | | | | [address] | | + + + + + Care Team Providers + +------+ + | Care Risk Reduction Counselor Name | Role | Phone | [...] | | | | [place] | [address] | | | | | [address] | | | | | | [phone] | | | +--------+ + + + [...]
--- OUTSIDE RECORDS SUMMARY | ~2019-11-10 | XMS | Encounter Summary ---
Demographics + + + | Address | [address] | | | [place] [address] | + + + | Home Phone | | + + + | Preferred Language | Unknown | + + + | Marital Status | | + + + | Mandaeism Affiliation | 1028 | + + + | Race | Unknown | + + + | Ethnic Group | Unknown | + + + Author + + + | Author | [facility] | | | and [place] | + + + | Organization | [facility] | | | and [...] [place], [place] | | | | | [address] | | + + + + + | Chloe Malik | ECON | [place], [place] | | | | | [address] | | + + + + + | Ivett Ingram | ECON | Unknown | | + + + + + | Mj Cabrera | ECON | Unknown | | + + + + + | Jessa Cabrera | ECON | [address] | | | | | [place], [place] | | | | | [address] | | + + + + + Care Team Providers + +------+ + | Care Industrial Relations Counselor Name | Role | Phone | [...] Thoracic or | [place]ár[place], | [address] | | | | | lumbosacral | William T, MD | [place], | | | | | neuritis or | [address] | [place] | | | | | | [place] | [address] | | | | | radiculitis, | [place] | Phone: | | | | | unspecified | [address] | [phone] | | | | | Procedures | Phone: | Fax: | | | | | [place] NJX | [phone] | [phone] | | | | | DX/THER SBST | Fax: | | | | | | | [phone] | | | | | | EPIDURAL/SUB | | | | | | | ARACH | | | | | | | LUMBAR/SACRA | | | | | | | L AR | | | | | | | [...] + + | 08/15/ | Hospital | [facility] | William Granger | Bilateral lumbar | | 2015 | Encounter | MED CTR XRAY [address] | T, [address] | radiculopathy; DDD | | | | [place] | [place], [place] | (degenerative disc | | | | [place] [address] | [address] | disease), lumbar; | | | | [phone] | | S/P lumbar fusion | | | | | 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 | [place] | [phone] | | [facility] | | [address] | | | - IMAGING | | [...] | | | | | Other, ONCE, [facility] 08/15/14 at 1530, | | PM PDT [...] | | | | | INTRATHECAL, ONCE, [facility] 08/15/14 at | | PM PDT | [...]
--- OUTSIDE RECORDS SUMMARY | ~2019-11-10 | XMS | Encounter Summary ---
Demographics + + + | Address | [address] | | | [place] [address] | + + + | Home Phone | | + + + | Preferred Language | Unknown | + + + | Marital Status | | + + + | Lutheran Affiliation | 1028 | + + + | Race | Unknown | + + + | Ethnic Group | Unknown | + + + Author + + + | Author | [facility] | | | and [place] | + + + | Organization | [facility] | | | and [...] [place], [place] | | | | | [address] | | + + + + + | Chloe Malik | ECON | [place], [place] | | | | | [address] | | + + + + + | Ivett Ingram | ECON | Unknown | | + + + + + | Mj Cabrera | ECON | Unknown | | + + + + + | Jessa Cabrera | ECON | [address] | | | | | [place], [place] | | | | | [address] | | + + + + + Care Team Providers + +------+ + | Care Music Store Manager Name | Role | Phone | [...] | | | [place]ár[place], | [address] | | | | | Sacroiliitis | William Mccarty MD | [place], | | | | | , not | [address] | [place] | | | | | elsewhere | [place] | [address] | | | | | classified | [place] | Phone: | | | | | ([facility]) | [address] | [phone] | | | | | Procedures | Phone: | Fax: | | | | | [place] INJECT SI | [phone] | [phone] | | | | | JOINT | Fax: | | | | | | ARTHRGRPHY&/ | [phone] | | | | | | ANES/STEROID | | | | | | | W/IMAGE [place] | | | | | | | [...] + + | 10/10/ | Hospital | [facility] | Favian, | Sacroiliitis, not | | 2015 | Encounter | MED CTR XRAY [address] | [address] | elsewhere classified | | | | [address] [place] | [address] | ([facility]); Chronic low | | | | [place] [address] | [place] [address] | back pain; S/P | | | | [phone] | [phone] | lumbar fusion | | | | | | | | | | | [address] | | | | | | [place] [...] | | | | | | | ([facility] | | | | | | [...] the | | | | PDT | ([facility]) Chronic low | results section. | | [...] the | | | | PDT | ([facility]) Chronic low | results section. | | [...] 720.0 Dennis Cabrera presents to the | [facility] | | fluoroscopy suite for fluoroscopically guided bilateral sacroiliac | [facility] | | joint steroid injections as [...] + | [address] | [address] | [place] | [phone] | | [facility] | | [address] | | | - IMAGING | | [...] 720.0 Dennis Cabrera presents to the | [facility] | | fluoroscopy suite for fluoroscopically guided bilateral sacroiliac [facility] | | joint steroid injections as [...] + | [address] | [address] | [place] | [phone] | | [facility] | | [address] | | | - IMAGING | | [...]
--- OUTSIDE RECORDS SUMMARY | ~2019-11-10 | XMS | Encounter Summary ---
Demographics + + + | Address | [address] | | | [place] [address] | + + + | Home Phone | | + + + | Preferred Language | Unknown | + + + | Marital Status | | + + + | Scientology Affiliation | 1028 | + + + | Race | Unknown | + + + | Ethnic Group | Unknown | + + + Author + + + | Author | [facility] | | | and [place] | + + + | Organization | [facility] | | | [...] [place], [place] | | | | | [address] | | + + + + + | Chloe Malik | ECON | [place], [place] | | | | | [address] | | + + + + + | Ivett Ingram | ECON | Unknown | | + + + + + | Mj Cabrera | ECON | Unknown | | + + + + + | Jessa Cabrera | ECON | [address] | | | | | [place], [place] | | | | | [address] | | + + + + + Care Team Providers + +------+ + | Care Crate Liner Name | Role | Phone | + +------+ + PCP | Unavailable | + +------+ + Encounter Details +--------+ + + + + | Date | Type | Department | Care Team | Description | +--------+ + + + + | 11/28/ | [facility] | [facility] | Monty Caputo, | | | 2010 | Encounter | MED CTR XRAY [address] | MD [address] | | | | | [place] | [place] | | | | | [place] [address] | [address] | | | | | [phone] | | | +--------+ + + + [...] Performed At | + + + | [facility] Diagnostic Imaging Department | [facility] | | [address] [facility] | [facility] | | MODIFIED BARIUM SWALLOW | DIAG [...] | | | Transcribed Date/Time: 11/28/2010 16:45 Rock Room Worker: | | | <Electronically Signed by Portillo Mckeon MD> 11/28/10 2239 | | + + + + + | Procedure Note | + + | Colton, Rad Conversion - 06/17/2013 3:25 PM [facility] | | Diagnostic Imaging Department [address] [place] [address] | | MODIFIED BARIUM SWALLOW 11/28/2010 CLINICAL [...] <Electronically Signed by Portillo Mckeon MD> 11/28/10 0619 | |oroscopy was utilized to evaluate swallow [...] 15:47 | |Transcribed Date/Time: 11/28/2010 16:45 | |Rock Room Worker: | |<Electronically Signed by Portillo Mckeon MD> [...]
--- OUTSIDE RECORDS SUMMARY | ~2019-11-10 | XMS | Clinical Summary ---
Demographics + + + | Address | [address] | | | [place] [address] | + + + | Home Phone [...] [place] | | | | | [address] | | + + + + + | Chloe Malik | ECON | [place], [place] | | | | | [address] | | + + + + + | Ivett Ingram | ECON | Unknown | | + + + + + | Mj Cabrera | ECON | Unknown | | + + + + + | Jessa Cabrera | ECON | [address] | | | | | [place], [place] | | | | | [address] | | + + + + + Care Team Providers + +------+ + | Care Building Performance Consultant Name | Role | Phone | [...] + + | Cyclobenzaprine | | | 03//20 | | | | | | 15 | | + + + + + + | Morphine Sulfate | | | | | + + + + + + | Oxycodone | | | | | + + + + + + | Fluoxetine | | | 03/19/20 | | | | | | 15 | | + + + + + + | Mirtazapine | | | 20 | | | | | | 18 [...] mg by mouth | | 0 | 01/09 | | Activ | | LOW DOSE) 81 MG EC | Daily. | | | 07/28 | | e | | tablet | | | | 12 | | | + + + +---------+------+------+-------+ | Multiple | Take by mouth. | | 0 | | | Activ | | Vitamins-Minerals | | | | | | e | | ([facility] | | | | | | [...] + + + + | Name | Administration Dates | Next Due | + + + [...] | | + + + + + Plan of Treatment + + + + + | Health Maintenance | Due Date | Last | Comments | | | | Done | | + + + + + | Vaccine: | | | | | Dtap/Tdap/Td (1 - | 2 | | | | Tdap) | | | | + + + + + | Vaccine: Zoster (1 | | | | | of 2) | 3 | | | + + + + + | Vaccine: | | 09/02/19 | | | Pneumococcal 65+ (2 | 9 | 18 | | | of 2 - PPSV23) | | | | + + + + + | Vaccine: Influenza | | | | | (#1) | 0 | | | + + + + [...] +--------+ +---------+--------+ | MEDICARE | MEDICA | [id number] | | [phone] | | Medica | | | RE | | 993-Pr | 5 | | re | | | PART A | | esent | | | | | | AND B | | | | | | + +--------+ +--------+ +---------+--------+ | AARP | AARP | [id number] | | [phone] | | Indemn | [...] Person | Self | [birth year] | [address] | | | al/Fam | | [phone] | [phone] | [place] | | | connie | | | 8 (Home) | [address] | + +--------+ +--------+ + + Advance Directives + + + + + | Type | Date Recorded | Patient | Explanation | | | | 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
--- OUTSIDE RECORDS SUMMARY | ~2019-11-10 | XMS | Clinical Summary ---
Demographics + + + | Address | [address] | | | [place] [address] | + + + | Home Phone [...] [place] | | | | | [address] | | + + + + + | Chloe Malik | ECON | [place], [place] | | | | | [address] | | + + + + + | Ivett Ingram | ECON | Unknown | | + + + + + | Mj Cabrera | ECON | Unknown | | + + + + + | Jessa Cabrera | ECON | [address] | | | | | [place], [place] | | | | | [address] | | + + + + + Care Team Providers + +------+ + | Care Teacher'S Assistant Name | Role | Phone | + [...] | | | | e | | ([facility] | | | | | | | [...] +--------+ +---------+--------+ | MEDICARE | MEDICA | [id number] | | [phone] | | Medica | | | RE | | 993-Pr | 5 | | re | | | PART A | | esent | | | | | | AND B | | | | | | + +--------+ +--------+ +---------+--------+ | AARP | AARP | [id number] | | [phone] | | Indemn | [...] connie | | | 8 (Home) | [address] | + +--------+ +--------+ + + Advance Directives + + + + + | Type | Date Recorded | Patient | Explanation | | | | 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
[~2019-11-10 22:41] MED LIST changes: +ASPIRIN325 MG PO; +BUPROPION HCL100 M1 PO; +FLOMAX0.4 MG PO; +GEODON40 MG PO; +LIPITOR10 MG GT; +MELATIN3 MG PO; +SEROQUEL100 MG PO; +SEROQUEL50 MG PO
--- OUTSIDE RECORDS SUMMARY | 2019-11-10 22:44 | XMS ---
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 Max VISIT COUNT (12 MO.) 2 [facility] TOTAL 2 NOTE: Visits indicate total known visits. 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
[2019-11-11] MEDS ORDERED: QUETIAPINE FUMA50 MG PO (08:06)
[2019-11-11] MEDS ORDERED: QUETIAPINE FUM100 MG PO (08:07)
[2019-11-11] MEDS ORDERED: ZIPRASIDONE HCL40 MG PO (08:18)
[2019-11-11] MEDS ORDERED: ALPRAZOLAM0.25 MG PO (08:23)
[2019-11-11] MEDS ORDERED: XANAX0.25 MG PO (08:24)
[2019-11-11] MEDS ORDERED: VENTOLIN HFA18 GM INH (08:25)
[2019-11-11] MEDS ORDERED: HYDROXYZINE HCL25 MG PO (08:42)
[2019-11-14] MEDS ORDERED: QUETIAPINE FUMA25 MG PO (11:03)
[2019-11-14] MEDS ORDERED: CEPHALEXIN500 MG PO (11:06)
== END 2019-11-14 14:05 | disposition home or self-care (01) | DRG 871 ==
LOC: ED 22:41 → MS 11-11 00:36 → CCU 11-11 00:36 → MS 11-12 11:30
PROVIDERS: ADMIT Student in an Organized Health Care Education/Training Program
DX: A41.51 Sepsis due to Escherichia coli [E. coli] (principal); G93.41 Metabolic encephalopathy; N39.0 Urinary tract infection, site not specified; N17.9 Acute kidney failure, unspecified; R65.20 Severe sepsis without septic shock; Z20.828 Contact with and (suspected) exposure to other viral communicable diseases; F01.50 Vascular dementia, unspecified severity, without behavioral disturbance, psychotic disturbance, mood disturbance, and anxiety; I10 Essential (primary) hypertension; K21.9 Gastro-esophageal reflux disease without esophagitis; E03.9 Hypothyroidism, unspecified; F39 Unspecified mood [affective] disorder; L89.90 Pressure ulcer of unspecified site, unspecified stage; N40.0 Benign prostatic hyperplasia without lower urinary tract symptoms; G62.9 Polyneuropathy, unspecified; Z99.3 Dependence on wheelchair; Z66 Do not resuscitate; Z86.73 Personal history of transient ischemic attack (TIA), and cerebral infarction without residual deficits; Z88.5 Allergy status to narcotic agent; Z88.8 Allergy status to other drugs, medicaments and biological substances; Z79.82 Long term (current) use of aspirin; Z79.899 Other long term (current) drug therapy
CPT/HCPCS: 36415; 51702; 71045; 80048; 80053; 81001; 83605; 83735; 85025; 85610; 85730; 87040; 87076; 87077; 87088; 87184; 87185; 87186; 92610; 97162; 97530; 99285-25; A9270; C9803; J0696; J1335; J1650; J3475; J7030; J7121; U0002